=== PATIENT | female | born 1950 | race Caucasian/White ===

== ENCOUNTER 2018-12-17 08:47 | Inpatient (IN) | payer MEDICARE, OTHER ==
--- NOTE | 2018-12-16 16:56 | Pre-op HX & Phy Repo 2 SIG ---
DATE OF ADMISSION: 12/17/2018 DATE OF PLANNED SURGERY: 12/18/2018 HISTORY OF PRESENT ILLNESS: The patient is a 68-year-old female in overall stable health with a liver transplant for many years, who has a malfunctioning Kock pouch continent ileostomy with one year of progressive difficulty with intubating her Kock pouch and increasing incontinence of stool and gas. The patient developed ulcerative colitis and 40 years ago in 1978 underwent proctocolectomy with creation of a Kock pouch continent ileostomy. 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 She used to intubate six to seven times a day and once per night, but now intubates every hour and a half and increasing at night to avoid leaking of stool and gas from the stoma. The patient is scheduled to undergo endoscopy in preparation for surgery with insertion of a PICC line, continuous drainage of her Kock pouch, intravenous hydration during bowel her prep and then surgery to revise and preserve her Kock pouch. The operative report from 2010 indicated the pouch was of small capacity. MEDICATIONS: Prograf 1 mg at 10 a.m. and 2 mg at 9 p.m., CellCept 750 mg a.m. and p.m., Synthroid 125 mcg daily, and trazodone 50 mg nightly as needed insomnia. ALLERGIES: Reglan, sulfa, and codeine causes side effects, Dilaudid causes itching, and morphine causes shortness of breath, hydrocodone, she tolerates. OPERATIONS: Liver transplantation in 1999 for primary sclerosing cholangitis, appendectomy age 15, cholecystectomy in 1985, and total abdominal hysterectomy and bilateral salpingo-oophorectomy in 1983. PHYSICAL EXAMINATION: GENERAL: The patient is 5 feet 1 inch, 133 pounds. She is arriving from out of town and will be examined upon arrival and dictated separately. IMPRESSION: 1. Malfunctioning Kock pouch continent ileostomy with increasing difficulty with intubation and increasing incontinence of stool and gas. 2. History of ulcerative colitis. 3. History of primary sclerosing cholangitis. 4. STATUS POST MULTIPLE ABDOMINAL OPERATIONS: 4.1. Proctocolectomy and Kock pouch continent ileostomy in 1978. 4.2. Total abdominal hysterectomy and bilateral salpingo-oophorectomy in 1983. 4.3. Appendectomy age 15. 4.4. Cholecystectomy in 1985. 4.5. Liver transplantation in 1999. 4.6. Laparotomy with revision of Kock pouch and repair of pouch cutaneous fistula in 2010. PLAN: I have had a full discussion with the patient regarding the nature of her condition, the nature of the pouch endoscopy, not requiring anesthesia or sedation and the nature of surgery, including the options of revising her existing valve, which is likely slipped, creation of a new valve and stoma preserving her pouch, resection of this pouch and creation of new continent ileostomy or resection of the pouch and creation of a conventional Yajaira ileostomy, which she has never had. I will have another discussion in person when she arrives from out of town including all the risks. Lars Sotomayor M.D. DR: RYAN JOB#: [id number] CC: BRENDEN
[~2018-12-17] VITALS: Ht 162.6 cm; Wt 61.2 kg
--- NOTE | 2018-12-17 10:00 | NUR ---
NURSE NOTES: ADMITTED A 68 YR OLD FEMALE WITH DX OF MALFUNCTIONING PARSONS POUCH. AWAKE/ALERT. ADM CARE SEE ADMISSION ASSESSMENT.
[2018-12-17 10:52] LABS: BASOPHILS % (AUTO) 1.1 % (0.0-2.0); EOSINOPHILS % (AUTO) 2.3 % (0.0-3.0); HEMATOCRIT 43.6 % (37.0-47.0); HEMOGLOBIN 14.5 G/DL (12.0-16.0); LYMPHOCYTES % (AUTO) 21.5 % (20.0-45.0); MEAN CORPUSCULAR VOLUME 92 FL (80-99); MONOCYTES % (AUTO) 7.1 % (1.0-10.0); PLATELET COUNT 314 K/UL (150-450); RED BLOOD COUNT 4.72 M/UL (4.20-5.40); RED CELL DISTRIBUTION WIDTH 12.3 % (11.6-14.8); WHITE BLOOD COUNT 7.1 K/UL (4.8-10.8)
[2018-12-17] MEDS ORDERED: SYNTHROID125 MCG ORAL (10:53)
[2018-12-17] MEDS ORDERED: PROGRAF1 MG ORAL (10:53)
[2018-12-17] MEDS ORDERED: TRAZODONE HCL50 MG ORAL (10:53)
[2018-12-17] MEDS ORDERED: CELLCEPT250 MG ORAL (10:53)
[2018-12-17 10:56] LABS: ANION GAP 12 mmol/L (5-15); BLOOD UREA NITROGEN 27 mg/dL (7-18); CALCIUM 9.8 MG/DL (8.5-10.1); CARBON DIOXIDE 20 MMOL/L (21-32); CHLORIDE 105 MMOL/L (98-107); CREATININE 1.2 MG/DL (0.55-1.30); POTASSIUM 4.4 MMOL/L (3.5-5.1); SODIUM 136 MMOL/L (136-145)
--- NOTE | 2018-12-17 10:56 | Anethesia Preoperative Eval ---
Anesthesia Pre-op PMH/ROS General Date of Evaluation: Dec 17, 2018 Time of Evaluation: 10:17 Anesthesiologist: Andres ASA Score: ASA 2 Mallampati Score Class I : Soft palate, uvula, fauces, pillars visible Class II: Soft palate, uvula, fauces visible Class III: Soft palate, base of uvula visible Class IV: Only hard plate visible Mallampati Classification: Class II Surgeon: Светлана Diagnosis: Malfunctioning Dhillon Poch Surgical Procedure: Laparotomy Revision Dhillon Poch Anesthesia History: none Family History: no anesthesia problems Allergies: Coded Allergies: CODEINE (Verified Allergy, Severe, 12/17/18) Face contractions HYDROMORPHONE (Verified Allergy, Severe, Itching, 12/17/18) Itching whole body METOCLOPRAMIDE (Verified Allergy, Severe, 12/17/18) Face contractions MORPHINE (Verified Allergy, Severe, Shortness of Breath, 12/17/18) SULFA (SULFONAMIDE ANTIBIOTICS) (Verified Allergy, Severe, 12/17/18) Face contractions Medications: see eMAR Patient NPO?: Yes Past Medical History Gastrointestinal/Genitourinary: Reports: other - Colitis HEENT: Reports: cataract (L), cataract (R) Hematology/Immune: Reports: other - Skin Cancer PSxH Narrative: USMAN Anesthesia Pre-op Phys. Exam Physician Exam Last Vital Signs Date Time Temp Pulse Resp B/P (MAP) Pulse Ox O2 Delivery O2 Flow Rate FiO2 12/17/18 10:00 Room Air Constitutional: NAD Neurologic: CN 2-12 intact Cardiovascular: RRR Respiratory: CTA Gastrointestinal: S/NT/ND Airway Exam Mallampati Score: Class II MO: full ROM: full Teeth: intact Anesthesia Pre-op A/P Labs Hematology Test 12/17/18 10:40 White Blood Count Pending Red Blood Count Pending Hemoglobin Pending Hematocrit Pending Mean Corpuscular Volume Pending Mean Corpuscular Hemoglobin Pending Mean Corpuscular Hemoglobin Concent Pending Red Cell Distribution Width Pending Platelet Count Pending Mean Platelet Volume Pending Neutrophils (%) (Auto) Pending Lymphocytes (%) (Auto) Pending Monocytes (%) (Auto) Pending Eosinophils (%) (Auto) Pending Basophils (%) (Auto) Pending Coagulation Test 12/17/18 10:40 Prothrombin Time Pending Prothromb Time International Ratio Pending Activated Partial Thromboplast Time Pending Chemistry Test 12/17/18 10:40 Sodium Level Pending Potassium Level Pending Chloride Level Pending Carbon Dioxide Level Pending Blood Urea Nitrogen Pending Creatinine Pending Estimat Glomerular Filtration Rate Pending Glucose Level Pending Calcium Level Pending Total Bilirubin Pending Aspartate Amino Transf (AST/SGOT) Pending Alanine Aminotransferase (ALT/SGPT) Pending Alkaline Phosphatase Pending Total Protein Pending Albumin Pending Globulin Pending Risk Assessment & Plan Assessment: ASA 2 Plan: GA Status Change Before Surgery: No Pre-Antibiotics Drug: Lalo Jewell MD Dec 17, 2018 10:55
[2018-12-17 10:58] LABS: INR 0.9 (0.9-1.1)
[2018-12-17 11:00] VITALS: BP 124/72
[2018-12-17 11:01] LABS: ALANINE AMINOTRANSFERASE 38 U/L (12-78); ALBUMIN 3.3 G/DL (3.4-5.0); ALBUMIN/GLOBULIN RATIO 0.8 (1.0-2.7); ALKALINE PHOSPHATASE 175 U/L (46-116); ASPARTATE AMINO TRANSFERASE 30 U/L (15-37); BILIRUBIN,TOTAL 0.4 MG/DL (0.2-1.0)
[2018-12-17] MEDS ORDERED: Lidocaine 1% Plain 30 ml INJ SCH (11:30)
[2018-12-17] MEDS ORDERED: Heparin1,000 units/500ml Premix(Conc:2 units/ml) IV SCH (11:30)
[2018-12-17 11:46] LABS: APPEARANCE,URINE CLEAR; BILIRUBIN, URINE NEGATIVE (NEGATIVE); COLOR,URINE PALE YELLOW; GLUCOSE, URINE (UA) NEGATIVE (NEGATIVE); KETONES,URINE NEGATIVE (NEGATIVE); LEUKOCYTE ESTERASE ,URINE 2+ (NEGATIVE); NITRITE,URINE NEGATIVE (NEGATIVE); PH,URINE 5 (4.5-8.0); PROTEIN,URINE 2+ (NEGATIVE); UROBILINOGEN,URINE NORMAL MG/DL (0.0-1.0)
--- NOTE | 2018-12-17 12:15 | Diagnostic Imaging Report ---
Indication: Dyspnea Comparison: None A single view chest radiograph was obtained. Findings: No definite infiltrate or pulmonary vascular congestion identified. The heart is enlarged. The aorta is mildly enlarged consistent with atherosclerotic vascular disease. Extensive surgical clips seen in the upper abdomen. The bones are osteopenic. Impression: No acute disease
--- NOTE | 2018-12-17 12:50 | NUR ---
NURSE NOTES: TO GI LAB VIA [facility] FOR PARSONS POUCH ENDOSCOPY.
--- NOTE | 2018-12-17 12:59 | Pre-Procedure Note/Attestation ---
Pre-Procedure Note/Attestation Complete Prior to Procedure Planned Procedure: not applicable Procedure Narrative: Kock pouch endoscopy Indications for Procedure Pre-Operative Diagnosis: malfunctioning Kock Pouch continent ileostomy Attestation I attest that I discussed the nature of the procedure; its benefits; risks and complications; and alternatives (and the risks and benefits of such alternatives ), prior to the procedure, with the patient (or the patient's legal field representative/health education). I attest that, if there was a reasonable possibility of needing a blood transfusion, the patient (or the patient's legal field representative/health education) was given the [facility] standardized written summary, pursuant to the Jesus Opal Blood Safety Act ([place] Health and Safety Code # 1645, as amended). I attest that I re-evaluated the patient just prior to the surgery and that there has been no change in the patient's H&P, except as documented below:none Lars Sotomayor MD Dec 17, 2018 12:59
--- NOTE | 2018-12-17 13:28 | Brief Operative Note ---
Immediate Post Operative Note Operative Note Pre-op Diagnosis: malfunctioning Kock Pouch continent ileostomy Procedure: Kock pouch endoscopy Post-op Diagnosis: same with partially slipped nipple valve Post-op Diagnosis: same as pre-op Findings: consistent w/pre-op dx studies Surgeon: lorena Anesthesia: other - none Specimen: none Complications: none Condition: stable Fluids: none Estimated Blood Loss: none Drains: other - 28 Pickett to Kock Pouch Implant(s) used?: No Lars Sotomayor MD Dec 17, 2018 13:28
--- NOTE | 2018-12-17 14:00 | NUR ---
NURSE NOTES: REC'D FROM GI LAB SP PARSONS POUCH ENDOSCOPY. AWAKE /ALERT. V/S TAKEN. NO CO PAIN. IEOSTOMY CATHETER CONNECTED TO DRAINAGE BAG DRAINING BROWNISH OUTPUT. FLUSH WITH 20CC NS ORDERED DRAINING WELL. CAME BACK WITH PICCLINE MARILY. SITE PATENT. DRESSING INTACT.
--- NOTE | 2018-12-17 14:11 | NUR ---
LUE 2L PICC LINE PLACED BY DR. JONES AT 1345 HRS. FA
[2018-12-17 14:25] VITALS: BP 139/75
[2018-12-17] MEDS: D5 1/2NS w/KCl 20mEq 1,000 ML IV SCH (14:26)
--- NOTE | 2018-12-17 15:11 | Diagnostic Imaging Report ---
Indication: lobsterman venous access Findings: After the indications, procedure, risks, complications, and alternatives of the procedure were explained, written informed consent was obtained. The left upper extremity was prepped with alcohol. All elements of maximal sterile barrier technique were followed including usage of a cap, mask, sterile gown, sterile gloves, hand hygiene and a large sterile sheet. Sonographic evaluation of the upper extremity was performed demonstrating a patent and compressible basilic vein. Access was obtained under real-time ultrasound guidance (with utilization of sterile gel and sterile probe cover) and digital image was saved and archived. An .018 wire was introduced. Needle exchanged for a 5 Setswana peel-away sheath. Measurements were obtained. A 5 Setswana dual-lumen Power PICC line catheter was cut to 43 cm and introduced over the wire. Peel-away sheath and wire were removed.Catheter was secured to the skin using 2-0 Prolene suture. Both ports aspirate and flush easily. A single fluoroscopic image shows the distal tip in the superior vena cava. Total fluoroscopic time was 15 seconds. Impression: Successful placement of an upper extremity PICC line catheter
--- NOTE | 2018-12-17 15:47 | General Progress Note ---
Progress Note Progress Note H&P dictated. Kock pouch endoscopy reveals a partially slipped or resorbed nipple valve accounting for her incontinence and some difficulty intubating Full discussion re surgery indications, alternatives, options and risk. Will give her am Prograf and Cellcept at 0700 pre-op Lars Sotomayor MD Dec 17, 2018 15:47
[2018-12-17 16:00] VITALS: BP 107/68
--- NOTE | 2018-12-17 17:08 | GI Initial Consult Note ---
History of Present Illness General Date patient seen: Dec 17, 2018 Time patient seen: 16:59 Referring physician: ZAYDA Reason for Consultation: HISTORY OF LIVER TRANSPLANT Present Illness HPI The patient is a 68-year-old female in overall stable health with a liver transplant for many years, who has a malfunctioning Kock pouch continent ileostomy with one year of progressive difficulty with intubating her Kock pouch and increasing incontinence of stool or gas. The patient developed ulcerative colitis and 40 years ago in 1978 underwent proctocolectomy with creation of a Kock pouch continent ileostomy. 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 She used to intubate six to seven times a day and once per night, but now intubates every hour and a half and increasing at night to avoid leaking of stool and gas from the stoma. GI consulted to manage tacrolimus levels given patient's history of liver transplant back in 1999. Patient seen, awake alert and oriented x4 no apparent distress. Abdomen is soft, nondistended, nontender. Ileostomy stoma noted with no erythema or drainage around the site. At this time the patient denies any generalized pain. Patient scheduled for Kock pouch revision surgery. Home Meds Reported Medications Trazodone Hcl* (DESYREL*) 50 Mg Tablet, 50 MG ORAL BEDTIME PRN for Insomnia, TAB 12/17/18 Levothyroxine Sodium* (SYNTHROID*) 125 Mcg Tablet, 125 MCG ORAL DAILY, TAB Take in the morning on an empty stomach, at least 30 minutes before food. 12/17/18 Mycophenolate Mofetil (Cellcept) 250 Mg Capsule, 750 MG ORAL BID, CAP 12/17/18 Tacrolimus (Prograf) 1 Mg Capsule, 2 MG ORAL DAILY, CAP 0 Refills 12/17/18 Tacrolimus (Prograf) 1 Mg Capsule, 1 MG ORAL DAILY, CAP 0 Refills 12/17/18 Med list reviewed/reconciled: Yes Allergies: Coded Allergies: CODEINE (Verified Allergy, Severe, 12/17/18) Face contractions HYDROMORPHONE (Verified Allergy, Severe, Itching, 12/17/18) Itching whole body METOCLOPRAMIDE (Verified Allergy, Severe, 12/17/18) Face contractions MORPHINE (Verified Allergy, Severe, Shortness of Breath, 12/17/18) SULFA (SULFONAMIDE ANTIBIOTICS) (Verified Allergy, Severe, 12/17/18) Face contractions Patient History History Provided By: Patient, Medical Record [facility] Narrative OPERATIONS: Liver transplantation in 1999 for primary sclerosing cholangitis, appendectomy age 15, cholecystectomy in 1985, and total abdominal hysterectomy and bilateral salpingo-oophorectomy in 1983. I Social History: Denies: smoking, alcohol use, drug use, other Review of Systems All Other Systems: negative except mentioned in HPI Physical Exam Vital Signs Date Time Temp Pulse Resp B/P (MAP) Pulse Ox O2 Delivery O2 Flow Rate FiO2 12/17/18 10:00 Room Air 12/17/18 11:00 97.1 69 18 124/72 (89) 97 Sp02 EP Interpretation: reviewed, normal Labs Laboratory Tests Test 12/17/18 10:40 12/17/18 10:45 12/17/18 11:54 White Blood Count 7.1 K/UL (4.8-10.8) Red Blood Count 4.72 M/UL (4.20-5.40) Hemoglobin 14.5 G/DL (12.0-16.0) Hematocrit 43.6 % (37.0-47.0) Mean Corpuscular Volume 92 FL (80-99) Mean Corpuscular Hemoglobin 30.7 PG (27.0-31.0) Mean Corpuscular Hemoglobin Concent 33.2 G/DL (32.0-36.0) Red Cell Distribution Width 12.3 % (11.6-14.8) Platelet Count 314 K/UL (150-450) Mean Platelet Volume 5.6 FL (6.5-10.1) L Neutrophils (%) (Auto) 68.0 % (45.0-75.0) Lymphocytes (%) (Auto) 21.5 % (20.0-45.0) Monocytes (%) (Auto) 7.1 % (1.0-10.0) Eosinophils (%) (Auto) 2.3 % (0.0-3.0) Basophils (%) (Auto) 1.1 % (0.0-2.0) Prothrombin Time 9.7 SEC (9.30-11.50) Prothromb Time International Ratio 0.9 (0.9-1.1) Activated Partial Thromboplast Time 25 SEC (23-33) Miscellaneous Test 2 Pending Pending Sodium Level 136 MMOL/L (136-145) Potassium Level 4.4 MMOL/L (3.5-5.1) Chloride Level 105 MMOL/L (98-107) Carbon Dioxide Level 20 MMOL/L (21-32) L Anion Gap 12 mmol/L (5-15) Blood Urea Nitrogen 27 mg/dL (7-18) H Creatinine 1.2 MG/DL (0.55-1.30) Estimat Glomerular Filtration Rate 44.8 mL/min (>60) Glucose Level 98 MG/DL (74-106) Calcium Level 9.8 MG/DL (8.5-10.1) Total Bilirubin 0.4 MG/DL (0.2-1.0) Aspartate Amino Transf (AST/SGOT) 30 U/L (15-37) Alanine Aminotransferase (ALT/SGPT) 38 U/L (12-78) Alkaline Phosphatase 175 U/L (46-116) H Total Protein 7.7 G/DL (6.4-8.2) Albumin 3.3 G/DL (3.4-5.0) L Globulin 4.4 g/dL Albumin/Globulin Ratio 0.8 (1.0-2.7) L Urine Color Pale yellow Urine Appearance Clear Urine pH 5 (4.5-8.0) Urine Specific [place] 1.020 (1.005-1.035) Urine Protein 2+ (NEGATIVE) H Urine Glucose (UA) Negative (NEGATIVE) Urine Ketones Negative (NEGATIVE) Urine Blood Negative (NEGATIVE) Urine Nitrite Negative (NEGATIVE) Urine Bilirubin Negative (NEGATIVE) Urine Urobilinogen Normal MG/DL (0.0-1.0) Urine Leukocyte Esterase 2+ (NEGATIVE) H Urine RBC 0-2 /HPF (0 - 2) Urine WBC 2-4 /HPF (0 - 2) Urine Squamous Epithelial Cells Few /LPF (NONE/OCC) Urine Bacteria Few /HPF (NONE) General Appearance: well appearing, no apparent distress, alert Head: normocephalic EENT: PERRL/EOMI, normal ENT inspection Neck: supple Respiratory: normal breath sounds, no respiratory distress Cardiovascular: normal rate Gastrointestinal: normal inspection, non tender, soft, normal bowel sounds, non -distended, other - Ileostomy Rectal: deferred Genitourinary: no CVA tenderness Musculoskeletal: normal inspection, back normal Neurologic: normal inspection, alert, oriented x3, responsive Psychiatric: normal inspection, judgement/insight normal, memory normal Skin: normal inspection, normal color, no rash, warm/dry, palpation normal, well hydrated Lymphatic: normal inspection, no adenopathy Current Medications Current Medications Medications (Trade) Dose Ordered Sig/Kajal Route PRN Reason Start Time Stop Time Status Last Admin Dose Admin Acetaminophen (Tylenol) 650 mg Q6H PRN ORAL headache 12/17/18 14:45 01/16/19 14:44 12/17/18 14:47 Chlorhexidine Gluconate (Yulia-Hex 2%) 1 applic DAILY@2000 TOPIC 12/17/18 20:00 01/16/19 19:59 Dextrose/ Electrolytes 1,000 ml @ 100 mls/hr Q10H IV 12/17/18 12:58 01/16/19 12:57 12/17/18 14:26 Heparin Sodium (Porcine) (Heparin 5000 units/ml) 5,000 units ONCE SUBQ 12/18/18 05:30 12/18/18 07:00 Heparin Sodium/ Sodium Chloride (Heparin 1000 units/500ml Premix) 1,000 unit ONCE IV 12/17/18 11:30 12/17/18 23:59 Levothyroxine Sodium (Synthroid) 125 mcg DAILY@0630 ORAL 12/18/18 06:30 01/17/19 06:29 Lidocaine HCl (Xylocaine 1% 30ml) 30 ml ONCE INJ 12/17/18 11:30 12/17/18 23:59 Mycophenolate Mofetil (Cellcept) 750 mg ONCE ORAL 12/17/18 21:00 12/17/18 22:30 Mycophenolate Mofetil (Cellcept) 750 mg ONCE ORAL 12/18/18 07:00 12/18/18 08:30 Mycophenolate Mofetil (Cellcept) 750 mg Q12HR ORAL 12/18/18 21:00 01/17/19 20:59 Ondansetron HCl (Zofran) 4 mg Q4H PRN IVP Nausea & Vomiting 12/17/18 11:00 01/16/19 10:59 Piperacillin Sod/ Tazobactam Sod 3.375 gm/Sodium Chloride 110 ml @ 220 mls/hr Q6HR IVPB 8/29/19 06:00 12/25/18 05:59 Tacrolimus (Prograf) 1 mg DAILY ORAL 12/19/18 09:00 01/18/19 08:59 Tacrolimus (Prograf) 1 mg ONCE ORAL 12/18/18 07:00 12/18/18 08:00 Tacrolimus (Prograf) 2 mg BEDTIME ORAL 12/17/18 21:00 01/16/19 20:59 Trazodone HCl (Desyrel) 25 mg QHS PRN ORAL INSOMNIA 12/17/18 12:22 01/16/19 12:21 GI: Plan Problems: (1) History of liver transplant (2) Malfunctioning Kock Pouch Plan IMPRESSION: 1. Malfunctioning Kock pouch continent ileostomy with increasing difficulty with intubation and increasing incontinence of stool and gas. 2. History of ulcerative colitis. 3. History of primary sclerosing cholangitis. 4. STATUS POST MULTIPLE ABDOMINAL OPERATIONS: 4.1. Proctocolectomy and Kock pouch continent ileostomy in 1978. 4.2. Total abdominal hysterectomy and bilateral salpingo-oophorectomy in 1983. 4.3. Appendectomy age 15. 4.4. Cholecystectomy in 1985. 4.5. Liver transplantation in 1999. 4.6. Laparotomy with revision of Kock pouch and repair of pouch cutaneous fistula in 2010. Given that the patient has a history of liver transplant, we recommend the patient be placed on either Zosyn or Flagyl prior and after the procedure. Obtain tacrolimus level for tomorrow morning, will monitor during her admission. We will monitor monitor for any postoperative nausea or vomiting Trend LFTs We will follow along with surgery and consider endoscopy if necessary Discussed with Dr. Dozier. Thank you for this patient referral, we will follow. The patient was seen and examined at bedside and all new and available data was reviewed in the patients chart. I agree with the above findings, impression and plan. (Patient seen earlier today. Signature stamp does not reflect patient encounter time.). - MD Cheryl WoodsEn[facility] JULIEN Dec 17, 2018 17:08
--- NOTE | 2018-12-17 17:45 | Procedure Note ---
DATE OF PROCEDURE: 12/17/2018 SURGEON: Lars Sotomayor M.D. PRE-ENDOSCOPY DIAGNOSES: 1. Malfunctioning Kock pouch continent ileostomy. 2. History of ulcerative colitis. 3. History of primary sclerosing cholangitis. 4. Status post multiple abdominal operations including proctocolectomy with Kock pouch in 1978 with revision in 2010 and status post liver transplantation in 1999. POST-ENDOSCOPY DIAGNOSES: 1. Malfunctioning Kock pouch continent ileostomy. 2. History of ulcerative colitis. 3. History of primary sclerosing cholangitis. 4. Status post multiple abdominal operations including proctocolectomy with Kock pouch in 1978 with revision in 2010 and status post liver transplantation in 1999. ENDOSCOPY PERFORMED: Kock pouch continent ileostomy pouch endoscopy. DESCRIPTION OF PROCEDURE: The patient was positioned supine in the GI lab without any sedation or anesthesia given or required. Using a GIF-P140 endoscope, the stoma low in the right lower quadrant was entered. There was a fairly straight tract into the pouch. The distance to the tip of the nipple valve was 8 to 9 cm slightly redundant for this patient's body size. The pouch was moderately distensible and of moderate capacity. There was no inflammation or sign of pouchitis. Retroflexed views revealed that 1 axis of the nipple valve was receded and measured only 1 to 1.5 cm or as 180 degrees away, it measured 4 to 5 cm. This is clearly the cause of her incontinence and difficulty with intubation with a partially slipped valve of a chronic nature. Following removal of the endoscope, I was readily able to insert a 28-Polish Pickett catheter into the pouch and connected to gravity drainage bag, secured it to the skin with tape, and placed a dry dressing over the stoma. The patient will be prepared for surgical revision of her Kock pouch. She tolerated the endoscopy well. Lars Sotomayor M.D. DR: MARCELA JOB#: [id number] CC:
[2018-12-17] MEDS ORDERED: D5 1/2NS w/KCl 20mEq 1,000 ML IV SCH (18:00)
--- NOTE | 2018-12-17 18:57 | NUR ---
NURSE NOTES: NO SIGNIFICANT CHANGES. CONDITION STABLE.
--- NOTE | 2018-12-17 19:30 | NUR ---
NURSE NOTES: Pt lying in bed w/bed in lowest position and call light within reach. Pt A&Ox4, VSS, and in no apparent distress at this time. MARILY PICC line intact w/bloody biopatch noted but w/o active bleeding; IVF running and ileo to drainage bag. Pt aware she is to be NPO at midnight except PO meds w/sips of water in preparation for surgery in the AM; pt verbalized understanding. Will continue to monitor.
--- NOTE | 2018-12-17 19:30 | NUR ---
HAND-OFF: Report given to Kendall CALIX RN.
[2018-12-17 20:00] VITALS: BP 149/81
[2018-12-17] MEDS: Dyna-Hex 2% Top Sol 2oz TOPIC SCH (20:46)
[2018-12-17] MEDS ORDERED: TraZODone 50mg tab ORAL PRN (21:00)
[2018-12-17] MEDS ORDERED: Mycophenolate 250mg cap ORAL SCH ×2 (21:00)
[2018-12-17] MEDS: TraZODone HCl 25 mg tablet ORAL PRN (22:19)
--- NOTE | 2018-12-17 22:30 | NUR ---
NURSE NOTES: Changed pt's PICC line dressing d/t her c/o it being uncomfortable and it bleeding; minimal bleeding noted when dressing removed but stopped before replacing dressing. Pt verbalized feeling better after changing PICC line dressing. Will continue to monitor.
[2018-12-18] VITALS (15 sets, daily range): BP systolic 135–162; BP diastolic 70–89
[2018-12-18] MEDS: D5 1/2NS w/KCl 20mEq 1,000 ML IV SCH ×2 (00:19→08:58)
--- NOTE | 2018-12-18 03:45 | Pre-op HX & Phy Repo 2 SIG ---
DATE OF ADMISSION: 12/17/2018 The patient has now arrived from out of town. Please see previously dictated history. PHYSICAL EXAMINATION: GENERAL: She is well developed and well nourished, 5 feet 1 inch, 133 pounds. HEENT: Within normal limits. LUNGS: Clear. HEART: Regular rhythm. BREASTS: Without masses. ABDOMEN: Soft. There is a long midline scar from epigastrium to pubis with a mild weakness or incisional hernia in the infraumbilical area. There is a chevron incision. The stoma of her Kock pouch is low in the right lower quadrant. PELVIC: Status post hysterectomy. RECTAL: Status post proctectomy. EXTREMITIES: Without edema. Pulses 2+ femoral to dorsalis pedis bilaterally. There is no edema or varicosities. NEUROLOGIC: Physiologic. IMPRESSION: 1. Malfunctioning Kock pouch continent ileostomy with worsening incontinence and occasional difficulty with intubation. 2. History of ulcerative colitis. 3. History of primary sclerosing cholangitis. 4. STATUS POST MULTIPLE ABDOMINAL OPERATIONS: 4.1. Appendectomy at age 15, in 1964. 4.2. Proctocolectomy and Kock pouch continent ileostomy in 1978. 4.3. Total abdominal hysterectomy and bilateral salpingo-oophorectomy in 1983. 4.4. Cholecystectomy in 1985. 4.5. Liver transplantation in 1999. 4.6. Revision of Kock pouch with repair of fistula and revision of valve 2010 PLAN: The patient has undergone pouch endoscopy revealing a deficiency of the nipple valve and a modest capacity pouch, which was described as small capacity at the time of her revision in 2010. I have discussed the surgical options including restoring and stabilizing the existing valve, which is unlikely, creating a new valve and stoma with preservation of the existing Kock pouch which would be ideal if technically feasible, the third option will be to resect this Kock pouch and create a new continent ileostomy the Briggs version of the Kock pouch, and the final option will be to excise this pouch and create a conventional Yajaira ileostomy which will require that she wear an external appliance rather than intubating an internal continent pouch. I have discussed indications, alternatives, options, and risks including bleeding, infection, injury to adjacent structures or organs, postoperative difficulties with pouch including possible slipped valve or fistula of pouch or valve, possible need for gastrostomy or nasogastric tube, deep vein thrombosis despite prophylaxis, issues with the liver transplant, etc. All questions have been answered. She understands and agrees to proceed. Lars Sotomayor M.D. DR: RYAN JOB#: [id number] CC: BRENDEN
[2018-12-18] MEDS ORDERED: Heparin 5000 units/ml inj SUBQ SCH (05:30)
[2018-12-18] MEDS: Piperacillin/Tazobactam 3.375 GM in NS 110 ML IVPB SCH ×4 (05:39→23:25)
[2018-12-18 05:54] LABS: BASOPHILS % (AUTO) 0.9 % (0.0-2.0); EOSINOPHILS % (AUTO) 4.9 % (0.0-3.0); HEMATOCRIT 37.7 % (37.0-47.0); HEMOGLOBIN 12.7 G/DL (12.0-16.0); LYMPHOCYTES % (AUTO) 25.3 % (20.0-45.0); MEAN CORPUSCULAR VOLUME 93 FL (80-99); MONOCYTES % (AUTO) 9.4 % (1.0-10.0); NEUTROPHILS % (AUTO) 59.4 % (45.0-75.0); PLATELET COUNT 229 K/UL (150-450); RED BLOOD COUNT 4.06 M/UL (4.20-5.40); RED CELL DISTRIBUTION WIDTH 12.3 % (11.6-14.8); WHITE BLOOD COUNT 4.7 K/UL (4.8-10.8)
[2018-12-18 06:46] LABS: ALANINE AMINOTRANSFERASE 30 U/L (12-78); ALBUMIN 2.6 G/DL (3.4-5.0); ALBUMIN/GLOBULIN RATIO 0.7 (1.0-2.7); ALKALINE PHOSPHATASE 131 U/L (46-116); ANION GAP 10 mmol/L (5-15); ASPARTATE AMINO TRANSFERASE 19 U/L (15-37); BILIRUBIN,TOTAL 0.3 MG/DL (0.2-1.0); BLOOD UREA NITROGEN 13 mg/dL (7-18); CALCIUM 9.1 MG/DL (8.5-10.1); CARBON DIOXIDE 19 MMOL/L (21-32); CHLORIDE 113 MMOL/L (98-107); POTASSIUM 3.8 MMOL/L (3.5-5.1); SODIUM 142 MMOL/L (136-145)
[2018-12-18] MEDS: Levothyroxine 125mcg tab ORAL SCH (06:52)
[2018-12-18] MEDS ORDERED: Mycophenolate 250mg cap ORAL SCH (07:00)
[2018-12-18] MEDS ORDERED: NeoSporin Gu Irrig 1ml Amp IRRIG ONE ×3 (07:00→10:31)
[2018-12-18] MEDS ORDERED: Sterile Water Irrig 1000ml IRRIG ONE (07:00)
[2018-12-18] MEDS ORDERED: LR 1000ml ONE (07:00)
[2018-12-18] MEDS ORDERED: Bacitracin 50000 Units Vial ONE ×3 (07:00→10:31)
[2018-12-18] MEDS ORDERED: fentaNYL 100 mcg/2 mL IV ONE ×2 (07:15→08:25)
--- NOTE | 2018-12-18 07:15 | NUR ---
NURSE NOTES: Report received from Lynsey NGUYEN. Patient already sent down to OR at 0700.
[2018-12-18] MEDS ORDERED: Midazolam 2mg/2ml Inj ONE (07:16)
[2018-12-18] MEDS ORDERED: Lidocaine 1% MPF 10mg/ml 5ml ONE (07:16)
[2018-12-18] MEDS ORDERED: Propofol 200mg/20ml IV ONE ×2 (07:16→11:15)
--- NOTE | 2018-12-18 07:22 | Pre-Procedure Note/Attestation ---
Pre-Procedure Note/Attestation Complete Prior to Procedure Planned Procedure: not applicable Procedure Narrative: revision of Kock Pouch continent ileostomy Indications for Procedure Pre-Operative Diagnosis: malfunctioning Kock Pouch continent ileostomy Attestation I attest that I discussed the nature of the procedure; its benefits; risks and complications; and alternatives (and the risks and benefits of such alternatives ), prior to the procedure, with the patient (or the patient's legal phone representative). I attest that, if there was a reasonable possibility of needing a blood transfusion, the patient (or the patient's legal phone representative) was given the [facility] standardized written summary, pursuant to the Jesus Lydia Blood Safety Act ([place] Health and Safety Code # 1645, as amended). I attest that I re-evaluated the patient just prior to the surgery and that there has been no change in the patient's H&P, except as documented below:none Lars Sotomayor MD Dec 18, 2018 07:22
[2018-12-18] MEDS ORDERED: Succinylcholine 20mg/ml 10ml vial ONE (07:27)
[2018-12-18] MEDS ORDERED: Rocuronium Bromide 50mg/5ml Inj IV ONE (07:27)
--- NOTE | 2018-12-18 07:40 | NUR ---
NURSE NOTES: Went down to Recovery to drop off Zosyn antibiotic as requested at this time.
--- NOTE | 2018-12-18 07:41 | NUR ---
HAND-OFF: Report given to PATRICK Johns.
--- NOTE | 2018-12-18 07:54 | NUR ---
CASE MANAGEMENT: INITIAL REVIEW 68 YO F PRESENTED TO HOSPITAL FOR SURGERY PMHx: LIVER TRANSPLANT. APPENDECTOMY. CHOLECYSTECTOMY. HYSTERECTOMY. SI:MALFUNCTIONING KOCK POUCH T 97.1 HR 69 RR 18 B/P 124/72 SATS 97% ON RA CO2 20 BUN 27 ALP 175 IS: OR MEDS PATIENT ADMITTED TO MED/SURG 12/18/2018 @ 0951 DCP: PATIENT TO BE DISCHARGED TO HOME ONCE MEDICALLY CLEARED. PLAN OF CARE: Procedure Narrative: revision of Kock Pouch continent ileostomy Pre-Operative Diagnosis: malfunctioning Kock Pouch continent ileostomy Addendum: 12/18/18 at 0915 by Shannen Mora CM INTERQUAL MET
[2018-12-18] MEDS ORDERED: NS Irrig 1000ml IRRIG ONE ×3 (07:58→09:05)
[2018-12-18] MEDS ORDERED: NS Irrig 4000ml IRRIG ONE ×2 (07:58→08:48)
[2018-12-18] MEDS ORDERED: Acetaminophen (Non formulary) 100 ML IV ONE (09:00)
--- NOTE | 2018-12-18 09:03 | NUR ---
*-* NO INSURANCE INFORMATION IN THE BAR UNABLE TO SEND CLINICALS OR REVIEWS *-*
[2018-12-18] MEDS ORDERED: Morphine Sulfate 10mg/ml Inj ONE (09:52)
[2018-12-18] MEDS ORDERED: Sodium Chloride 10ml vial INJ ONE (09:54)
[2018-12-18] MEDS ORDERED: Glycopyrrolate 0.2mg/ml 1ml Vial ONE (09:54)
[2018-12-18] MEDS ORDERED: Neostigmine 1mg/ml 10ml Inj ONE (09:54)
[2018-12-18] MEDS ORDERED: Ketorolac 30mg Inj IV PRN (10:30)
[2018-12-18] MEDS ORDERED: DiphenhydrAMINE 50mg/ml Inj IVP PRN ×2 (10:30→11:45)
[2018-12-18] MEDS ORDERED: Hydromorphone 0.5mg/0.5ml inj IVP PRN (10:30)
--- NOTE | 2018-12-18 11:37 | Brief Operative Note ---
Immediate Post Operative Note Operative Note Pre-op Diagnosis: malfunctioning Kock Pouch continent ileostomy Procedure: resection of failed Kock pouch and creation of Yajaira ileostomy Post-op Diagnosis: same Post-op Diagnosis: same as pre-op plus - small, contracted Kock pouch; proximal stricture Findings: consistent w/pre-op dx studies Surgeon: lorena Site Safety Manager: chucho Anesthesiologist: josi Anesthesia: general Specimen: yes - kock pouch, bowel trimmings Complications: none Condition: stable Fluids: see anesthesia record Estimated Blood Loss: volume - 100cc Drains: none Implant(s) used?: No Lars Sotomayor MD Dec 18, 2018 11:37
--- NOTE | 2018-12-18 11:42 | Immediate Post-Op Evaluation ---
Immediate Post-Op Evalulation Immediate Post-Op Evalulation Procedure: Exploratory laparotomy, lysis of adhesions, resection of continent pouch Date of Evaluation: Dec 18, 2018 Time of Evaluation: 11:41 IV Fluids: 1000 Blood Products: ALBUMIN 250 Estimated Blood Loss: 100 Urinary Output: 150 Blood Pressure Systolic: 136 Blood Pressure Diastolic: 72 Pulse Rate: 68 Respiratory Rate: 20 O2 Sat by Pulse Oximetry: 99 Temperature (Fahrenheit): 98.2 Pain Score (1-10): 2 Nausea: No Vomiting: No Complications none Patient Status: reacts, patent, extubated, none Hydration Status: adequate Ulises Sevilla MD Dec 18, 2018 11:42
[2018-12-18] MEDS ORDERED: PCA HYDROmorphone 1mg/ml 30 ML IV PRN (11:44)
[2018-12-18] MEDS ORDERED: Naloxone 0.4mg/ml Inj IVP PRN (11:45)
[2018-12-18] MEDS ORDERED: LORazepam 1mg tab SL PRN (11:45)
[2018-12-18] MEDS ORDERED: Rate Change PCA 1 Each MISC PRN (11:45)
[2018-12-18] MEDS ORDERED: PCA Education Pamphlet MISC ONE (11:45)
[2018-12-18] MEDS ORDERED: Hydromorphone 0.5mg/0.5ml inj ONE (11:49)
--- NOTE | 2018-12-18 12:27 | GI Progress Note ---
Assessment/Plan Problems: (1) Malfunctioning Kock Pouch (2) History of liver transplant ICD Codes: Z94.4 - Liver transplant status SNOMED: 273870576 Status: progressing, unchanged Status Narrative Discussed with Dr. Dozier. Assessment/Plan IMPRESSION: 1. Malfunctioning Kock pouch continent ileostomy with increasing difficulty with intubation and increasing incontinence of stool and gas. 2. History of ulcerative colitis. 3. History of primary sclerosing cholangitis. 4. STATUS POST MULTIPLE ABDOMINAL OPERATIONS: 4.1. Proctocolectomy and Kock pouch continent ileostomy in 1978. 4.2. Total abdominal hysterectomy and bilateral salpingo-oophorectomy in 1983. 4.3. Appendectomy age 15. 4.4. Cholecystectomy in 1985. 4.5. Liver transplantation in 1999. 4.6. Laparotomy with revision of Kock pouch and repair of pouch cutaneous fistula in 2010. Status post exploratory laparotomy with lysis of the adhesions and continent pouch repair Given that the patient has a history of liver transplant, we recommend the patient be placed on either Zosyn or Flagyl prior and after the procedure. Obtain tacrolimus level for tomorrow morning, will monitor during her admission. We will monitor monitor for any postoperative nausea or vomiting Trend LFTs We will follow along with surgery and consider endoscopy if necessary The patient was seen and examined at bedside and all new and available data was reviewed in the patients chart. I agree with the above findings, impression and plan. (Patient seen earlier today. Signature stamp does not reflect patient encounter time.). - Max Dozier MD Subjective Gastrointestinal/Abdominal: Reports: abdominal pain Objective Last 24 Hour Vital Signs Date Time Temp Pulse Resp B/P (MAP) Pulse Ox O2 Delivery O2 Flow Rate FiO2 12/18/18 12:01 80 14 156/78 100 Simple Mask 6 12/18/18 11:51 78 13 161/82 100 Simple Mask 6 12/18/18 11:45 77 15 161/88 100 Simple Mask 6 12/18/18 11:42 68 20 99 12/18/18 11:40 78 24 145/85 100 Simple Mask 6 12/18/18 11:36 98.5 79 14 135/83 99 Simple Mask 6 12/18/18 04:00 97.3 66 18 152/83 (106) 98 12/18/18 00:00 98.1 68 18 142/84 (103) 98 12/17/18 21:00 Room Air 12/17/18 20:00 97.8 75 18 149/81 (103) 98 12/17/18 16:00 98.2 74 19 107/68 (81) 99 12/17/18 15:17 98.2 12/17/18 14:25 97.9 72 19 139/75 (96) 96 Intake and Output 12/17/18 12/18/18 19:00 07:00 Intake Total 1850 ml 1520 ml Output Total 1060 ml 2075 ml Balance 790 ml -555 ml Intake Oral 1400 ml 360 ml IV Total 450 ml 1160 ml Output Urine Total 700 ml 1180 ml Other 360 ml 895 ml # Voids 4 Laboratory Tests Test 12/18/18 05:25 White Blood Count 4.7 K/UL (4.8-10.8) L Red Blood Count 4.06 M/UL (4.20-5.40) L Hemoglobin 12.7 G/DL (12.0-16.0) Hematocrit 37.7 % (37.0-47.0) Mean Corpuscular Volume 93 FL (80-99) Mean Corpuscular Hemoglobin 31.2 PG (27.0-31.0) H Mean Corpuscular Hemoglobin Concent 33.6 G/DL (32.0-36.0) Red Cell Distribution Width 12.3 % (11.6-14.8) Platelet Count 229 K/UL (150-450) Mean Platelet Volume 5.6 FL (6.5-10.1) L Neutrophils (%) (Auto) 59.4 % (45.0-75.0) Lymphocytes (%) (Auto) 25.3 % (20.0-45.0) Monocytes (%) (Auto) 9.4 % (1.0-10.0) Eosinophils (%) (Auto) 4.9 % (0.0-3.0) H Basophils (%) (Auto) 0.9 % (0.0-2.0) Sodium Level 142 MMOL/L (136-145) Potassium Level 3.8 MMOL/L (3.5-5.1) Chloride Level 113 MMOL/L (98-107) H Carbon Dioxide Level 19 MMOL/L (21-32) L Anion Gap 10 mmol/L (5-15) Blood Urea Nitrogen 13 mg/dL (7-18) Creatinine 1.0 MG/DL (0.55-1.30) Estimat Glomerular Filtration Rate 55.3 mL/min (>60) Glucose Level 95 MG/DL (74-106) Calcium Level 9.1 MG/DL (8.5-10.1) Total Bilirubin 0.3 MG/DL (0.2-1.0) Aspartate Amino Transf (AST/SGOT) 19 U/L (15-37) Alanine Aminotransferase (ALT/SGPT) 30 U/L (12-78) Alkaline Phosphatase 131 U/L (46-116) H Total Protein 6.3 G/DL (6.4-8.2) L Albumin 2.6 G/DL (3.4-5.0) L Globulin 3.7 g/dL Albumin/Globulin Ratio 0.7 (1.0-2.7) L Tacrolimus (Prograf) Level Pending Height (Feet): 5 Height (Inches): 5.00 Weight (Pounds): 135 General Appearance: WD/WN, no apparent distress, alert Cardiovascular: normal rate Respiratory/Chest: normal breath sounds, no respiratory distress Abdominal Exam: normal bowel sounds, non tender, soft, other - ileostomy Extremities: normal range of motion, non-tender Jeyson Luna NP Dec 18, 2018 12:27
--- NOTE | 2018-12-18 12:30 | NUR ---
NURSE NOTES: Patient returned to 307 via bed on O2 3LNC. No SOB or distress noted. Pain 10/10 to surgical site. MARINE ENGINEERING TEACHER (Dilaudid) connected, 0.2 mg every 6 minutes with continuous 0.1 mg, 6 mg lockout), volume 27.3 at this time, instructed on MARINE ENGINEERING TEACHER use, verbalized understanding. IVF 0.9 NS at 100 ml infusing to Left PICC, will change to new IVF order when received from pharmacy. Left PICC dressing CDI, site asymptomatic. Bilateral SCDs on, skin warm, wiggles toes. Left upper abdomen ileostomy appliance in place, stoma pink/moist, scant amount of dark bloody output noted in appliance bag, surrounding skin intact. Right upper abdomen dressing CDI. Instructed on NPO except ice/meds, IS, CDB, ankle rotation and overhead trapeze use orders, will reinforce. Call light in reach, bed in lowest position, will continue to monitor.
[2018-12-18] MEDS: D5 1/4NS w/KCl 20mEq 1,000 ML IV SCH ×2 (13:45→23:25)
--- NOTE | 2018-12-18 16:30 | Operative Note - Dictated ---
DATE OF OPERATION: 12/18/2018 SURGEON: Lars Sotomayor M.D. DIGITAL OPERATIONS ANALYST SURGEON: Kvng Sanchez M.D. ANESTHESIOLOGIST: Ulises Sevilla M.D. TYPE OF ANESTHESIA: General endotracheal. PREOPERATIVE DIAGNOSES: 1. Malfunctioning Kock pouch continent ileostomy. 2. History of ulcerative colitis. 3. History of primary sclerosing cholangitis. 4. Status post multiple abdominal operations. 4.1. Appendectomy in 1964. 4.2. Proctocolectomy and Kock pouch in 1978. 4.3. Total abdominal hysterectomy and bilateral salpingo-oophorectomy 1983 4.4. Cholecystectomy in 1985. 4.5. Orthotopic liver transplantation in 1999. 4.6. Revision of Kock pouch and repair of fistula in 2010. POSTOPERATIVE DIAGNOSES: 1. Malfunctioning Kock pouch continent ileostomy. 2. History of ulcerative colitis. 3. History of primary sclerosing cholangitis. 4. Status post multiple abdominal operations. 4.1. Appendectomy in 1964. 4.2. Proctocolectomy and Kock pouch in 1978. 4.3. Total abdominal hysterectomy and bilateral salpingo-oophorectomy 1983 4.4. Cholecystectomy in 1985. 4.5. Orthotopic liver transplantation in 1999. 4.6. Revision of Kock pouch and repair of fistula in 2010. OPERATION PERFORMED: Resection of failed Kock pouch and enteroenterostomy and creation of Yajaira ileostomy. INDICATIONS AND FINDINGS: The patient was known to have a very small capacity Kock pouch with a deficient nipple valve with progressive worsening incontinence of stool and gas and increasing difficulty with intubation. DESCRIPTION OF PROCEDURE: At surgery, abdominal adhesions were moderately severe. The Kock pouch itself was of very small capacity and contracted and not amenable for safe reconstruction to create a new valve and stoma. The afferent bowel just proximal to the pouch was normal, but 8 cm proximal to that was a stricture and dissecting to mobilize the bowel, created a proximal enterotomy, and a small segment had to be resected with the BIRDIE stapling device with a BIRDIE anastomosis with the enterotomy closed with the BIRDIE. Proximal to this, efforts to mobilize more of the proximal ileum were met with severe adhesions leading into the right upper quadrant at the location of her liver transplantation and I felt it was completely inadvisable to pursue this further. The proximal bowel appeared normal without being dilated and she had no obstruction symptoms. During the takedown of the Kock pouch stoma in the right lower quadrant with a transversely oriented elliptical incision, there was intense scarring and entry made into the pouch. This was made into a pouch enterotomy when it became apparent that no reconstruction could safely be performed. There was very little available room for an anastomosis for a new segment of bowel to create a valve and stoma and would have been quite tenuous. In accordance with preoperative discussions, the pouch was resected taking the mesentery with the Thunderbeat electrosurgical device and handing the specimen off the field after dividing the afferent bowel. The stricture proximal to this had even more proximal dilatation, which would not have been satisfactory for an ileostomy and I wished to avoid sacrificing additional 1 to 2 feet of small intestine. I dilated the stricture gently with cervical Hegar dilators up to #16. I decided to bring the stoma out in the upper part of the left lower quadrant. The abdominal wall had not been disturbed previously. A circular disc of skin was excised and a cruciate incision made in the fascia with a two fingerbreadth abdominal wall hiatus. The end of the ileum was brought through and the mesentery divided for 4 to 5 cm. I decided to mature it at this time, which I did in typical everting Yajaira fashion with interrupted 3-0 chromic creating a decent nipple blood. The stoma itself appeared somewhat congested, but there was bleeding from the edges and it was viable. As I mentioned to go further proximally with on account of the stricture and proximal to that was a foot of small bowel which was very dilated with thickened mesentery, which would have to otherwise be resected in its entirety. The incision throughout had been protected with antibiotic soaked laps. The bladder and ureters had been protected. The abdomen and pelvis was copiously irrigated with warm saline and hemostasis carefully achieved with cautery and the Thunderbeat electric surgical device. The bowel loops were placed anatomically. The prior Kock pouch stoma incision was closed with continuous locked 0 PDS and the skin closed with interrupted 2-0 nylon vertical mattress sutures. The midline incision was closed with continuous #1 looped PDS and the skin closed with staplesk. A 1-3/4 inch ileostomy appliance was cut to fit and placed over the stoma followed by dry sterile dressing. Final sponge and needle counts were correct. The patient tolerated the procedure well left the operating room in stable condition. Lars Sotomayor M.D. DR: LEDA JOB#: [id number] CC: BRENDEN
--- NOTE | 2018-12-18 18:46 | NUR ---
NURSE NOTES: Received 1 and 3/4 ileostomy appliance from [employer]. Placed in patient's room (307) as ordered.
[2018-12-18] MEDS: PCA shift volume MISC SCH (19:00)
--- NOTE | 2018-12-18 19:40 | NUR ---
HAND-OFF: Report given to Lynsey NGUYEN/Ti NGUYEN. Outputs: Urine: 600 ml Ileostomy appliance: 10 ml
--- NOTE | 2018-12-18 19:45 | NUR ---
NURSE NOTES: Pt lying in bed w/bed in lowest position and call light/RERECORDING MIXER button within reach. Pt A&Ox4; VSS; on 3L NC; and in moderate pain; encouraged pt to press RERECORDING MIXER button as needed for additional pain relief. MARILY PICC line intact/asymptomatic w/IVF running; F/C patent/draining well; and Yajaira ileo bag & surgical dressing C/D/I. Will continue to monitor.
[2018-12-18] MEDS: Dyna-Hex 2% Top Sol 2oz TOPIC SCH (20:55)
[2018-12-18] MEDS: Mycophenolate 250mg cap ORAL SCH (20:56)
[2018-12-19] VITALS: BP 130/74
[2018-12-19] MEDS: HYDROmorphone 1mg/ml Carpuject SUBQ PRN (00:40)
[2018-12-19 04:00] VITALS: BP 128/70
[2018-12-19 04:32] LABS: HEMATOCRIT 35.8 % (37.0-47.0); HEMOGLOBIN 11.7 G/DL (12.0-16.0); MEAN CORPUSCULAR VOLUME 94 FL (80-99); PLATELET COUNT 215 K/UL (150-450); RED CELL DISTRIBUTION WIDTH 12.8 % (11.6-14.8)
[2018-12-19 04:38] LABS: ANION GAP 8 mmol/L (5-15); BLOOD UREA NITROGEN 12 mg/dL (7-18); CALCIUM 8.6 MG/DL (8.5-10.1); CARBON DIOXIDE 20 MMOL/L (21-32); CHLORIDE 110 MMOL/L (98-107); CREATININE 1.1 MG/DL (0.55-1.30); POTASSIUM 4.5 MMOL/L (3.5-5.1); SODIUM 138 MMOL/L (136-145)
[2018-12-19] MEDS: Levothyroxine 125mcg tab ORAL SCH (06:12)
[2018-12-19] MEDS: Piperacillin/Tazobactam 3.375 GM in NS 110 ML IVPB SCH ×4 (06:13→23:56)
[2018-12-19] MEDS: PCA shift volume MISC SCH ×2 (07:25→19:29)
--- NOTE | 2018-12-19 07:25 | NUR ---
NURSE NOTES: Report received from Lynsey RN and Ti RN, rounds made. Patient resting in semi-fowlers position in bed. Fatigued/sleeping, awakens to name. No distress or SOB on O2 3LNC. IVF (D5 1/4 + 20 KCL) infusing at 100 ml/hr, HUMAN RESOURCES SERVICES SPECIALIST (Dilaudid) connected as ordered to left PICC, site asymptomatic. FC in place, secured to left thigh, draining to gravity, yellow clear urine. Right abdomen dressing CDI. Left upper abdomen, Yajaira ileostomy drain bag intact, surrounding skin intact, small amount of dark brown output noted in bag. Patient has pillow over abdomen as splint. Encouraged IS use with voluntary coughing, verbalized understanding. Bilateral SCDs on. No NV/emesis at this time. Reinforced NPO status, ice chips provided. Call light in reach, bed in lowest position, will continue to monitor.
--- NOTE | 2018-12-19 07:28 | General Progress Note ---
Progress Note Progress Note AVSS Had emesis x 2 last evening - none overnight. Having pain relieved with Dilaudid TWO WAY RADIO INSTALLER Abdomen distended, soft, incisions clean. Stoma pink WBC 14,000 Hgb 11.7 BUN 1`2 Cr 1.1 Imp. Ileus Plan: NPO Monitor Prograf and Cellcept - per Dr. Dozier/GI Mobilize Lars Sotomayor MD Dec 19, 2018 07:28
--- NOTE | 2018-12-19 07:29 | NUR ---
HAND-OFF: Report given to PATRICK Navarro. Endorsed to please ambulate pt this AM, per Dr. Sotomayor.
[2018-12-19 08:00] VITALS: BP 137/81
[2018-12-19] MEDS: Mycophenolate 250mg cap ORAL SCH ×2 (08:55→20:19)
[2018-12-19] MEDS: D5 1/4NS w/KCl 20mEq 1,000 ML IV SCH ×2 (08:56→20:18)
[2018-12-19] MEDS ORDERED: Tubing IV Secondary IV ONE (09:39)
[2018-12-19] MEDS ORDERED: NS Irrig 1000ml ONE (09:39)
--- NOTE | 2018-12-19 10:30 | NUR ---
*-* NO INSURANCE INFORMATION IN THE BAR UNABLE TO SEND CLINICALS OR REVIEWS *-*
[2018-12-19 12:00] VITALS: BP 139/74
--- NOTE | 2018-12-19 12:09 | GI Progress Note ---
Assessment/Plan Problems: (1) Malfunctioning Kock Pouch (2) History of liver transplant ICD Codes: Z94.4 - Liver transplant status SNOMED: [id number] Status: unchanged Status Narrative Discussed with Dr. Dozier. Assessment/Plan 1. Malfunctioning Kock pouch continent ileostomy with increasing difficulty with intubation and increasing incontinence of stool and gas. 2. History of ulcerative colitis. 3. History of primary sclerosing cholangitis. 4. STATUS POST MULTIPLE ABDOMINAL OPERATIONS: 4.1. Proctocolectomy and Kock pouch continent ileostomy in 1978. 4.2. Total abdominal hysterectomy and bilateral salpingo-oophorectomy in 1983. 4.3. Appendectomy age 15. 4.4. Cholecystectomy in 1985. 4.5. Liver transplantation in 1999. 4.6. Laparotomy with revision of Kock pouch and repair of pouch cutaneous fistula in 2010. Status post exploratory laparotomy with lysis of the adhesions and continent pouch repair maintain NPO + IVF at this time, okay to start CLD when patient nausea improves continue zosyn monitor tacrolimus levels, WNL at this time zofran prn, defer reglan given allergy trend LFTs endoscopy if necessary The patient was seen and examined at bedside and all new and available data was reviewed in the patients chart. I agree with the above findings, impression and plan. (Patient seen earlier today. Signature stamp does not reflect patient encounter time.). - Max Dozier MD Subjective Subjective had episode of emesis last night c/o of reflux discomfort Objective Last 24 Hour Vital Signs Date Time Temp Pulse Resp B/P (MAP) Pulse Ox O2 Delivery O2 Flow Rate FiO2 12/19/18 08:00 18 12/19/18 08:00 98.9 86 18 137/81 (99) 100 12/19/18 04:00 18 12/19/18 04:00 98.7 95 18 128/70 (89) 98 12/19/18 01:10 97.9 12/19/18 00:00 18 12/19/18 00:00 97.9 90 18 130/74 (92) 100 12/18/18 21:00 Nasal Cannula 3.0 12/18/18 20:00 97.4 84 18 136/70 (92) 99 12/18/18 20:00 18 12/18/18 16:08 97 Nasal Cannula 2.0 28 12/18/18 16:00 97.6 84 20 153/88 (109) 99 12/18/18 16:00 13 12/18/18 14:30 97.2 94 20 142/76 (98) 97 12/18/18 13:30 97.5 79 18 154/89 (110) 98 12/18/18 13:00 97.6 82 20 162/84 (110) 98 12/18/18 12:30 Nasal Cannula 3.0 12/18/18 12:30 13 12/18/18 12:30 97.6 79 18 160/84 (109) 97 12/18/18 12:20 97.9 12/18/18 12:20 97.9 82 15 156/88 100 Nasal Cannula 3 12/18/18 12:18 11 12/18/18 12:15 78 15 161/83 100 Nasal Cannula 3 Intake and Output 12/18/18 12/19/18 19:00 07:00 Intake Total 1850 ml 1540 ml Output Total 660 ml 355 ml Balance 1190 ml 1185 ml Intake Oral 120 ml IV Total 1600 ml 1420 ml Other 250 ml Output Urine Total 550 ml 350 ml Estimated Blood Loss 100 ml Other 10 ml 5 ml Laboratory Tests Test 12/19/18 04:15 White Blood Count 14.0 K/UL (4.8-10.8) #H Red Blood Count 3.80 M/UL (4.20-5.40) L Hemoglobin 11.7 G/DL (12.0-16.0) L Hematocrit 35.8 % (37.0-47.0) L Mean Corpuscular Volume 94 FL (80-99) Mean Corpuscular Hemoglobin 30.7 PG (27.0-31.0) Mean Corpuscular Hemoglobin Concent 32.6 G/DL (32.0-36.0) Red Cell Distribution Width 12.8 % (11.6-14.8) Platelet Count 215 K/UL (150-450) Mean Platelet Volume 6.1 FL (6.5-10.1) L Neutrophils (%) (Auto) % (45.0-75.0) Lymphocytes (%) (Auto) % (20.0-45.0) Monocytes (%) (Auto) % (1.0-10.0) Eosinophils (%) (Auto) % (0.0-3.0) Basophils (%) (Auto) % (0.0-2.0) Sodium Level 138 MMOL/L (136-145) Potassium Level 4.5 MMOL/L (3.5-5.1) Chloride Level 110 MMOL/L (98-107) H Carbon Dioxide Level 20 MMOL/L (21-32) L Anion Gap 8 mmol/L (5-15) Blood Urea Nitrogen 12 mg/dL (7-18) Creatinine 1.1 MG/DL (0.55-1.30) Estimat Glomerular Filtration Rate 49.6 mL/min (>60) Glucose Level 168 MG/DL (74-106) H Calcium Level 8.6 MG/DL (8.5-10.1) Height (Feet): 5 Height (Inches): 5.00 Weight (Pounds): 135 General Appearance: WD/WN, no apparent distress, alert Cardiovascular: normal rate Respiratory/Chest: normal breath sounds, no respiratory distress Abdominal Exam: normal bowel sounds, non tender, soft Extremities: normal range of motion, non-tender Jeyson Luna NP Dec 19, 2018 12:09
--- NOTE | 2018-12-19 12:32 | 48 Hour Post Anesthesia Eval ---
Post Anesthesia Evaluation Procedure: Exploratory laparotomy, lysis of adhesions, resection of continent pouch Date of Evaluation: Dec 19, 2018 Time of Evaluation: 12:30 Blood Pressure Systolic: 136 0: 74 Pulse Rate: 72 Respiratory Rate: 20 Temperature (Fahrenheit): 97.6 O2 Sat by Pulse Oximetry: 98 Airway: patent Nausea: No Vomiting: No Pain Intensity: 3 Hydration Status: adequate Cardiopulmonary Status: stable Mental Status/LOC: patient returned to baseline Follow-up Care/Observations: n/a Post-Anesthesia Complications: none Follow-up care needed: N/A Ulises Sevilla MD Dec 19, 2018 12:32
--- NOTE | 2018-12-19 13:41 | NUR ---
CASE MANAGEMENT:REVIEW 12/19/18 SI: POD #1 MALFUNCTIONING KOCK POUCH CONTINENT ILEOSTOMY S/P RESECTION,ENTEROENTEROSTOMY AND CREATION OF SUKHI ILEOSTOMY 99.0 91 20 139/74 98% ON RA WBC+14.0 IS: NPO ASSISTANT STORE DIRECTOR DILAUDID IV ZOSYN Q6HRS PROGRAF PO QHS CELLCEPT PO Q12 IVF@100/HR : MED/SURG STATUS 3 EAST
--- NOTE | 2018-12-19 14:45 | NUR ---
NURSE NOTES: Patient transferred to chair with RN and spouse assist. Up to chair for approximately 40 minutes, tolerated fair. Patient refused to ambulate, will offer assistance again later. No NV. Patient experiencing reflux/heartburn. Dr. Sotomayor and Jose Maria SYSTEMS ARCHITECTURE ANALYST notified, see order. Administered Protonix PO as ordered. Ice chips provided. HOB elevated. Will continue to monitor.
--- NOTE | 2018-12-19 15:32 | NUR ---
*-*INSURANCE *-* ALL CLINICALS AND REVIEWS HAVE BEEN FAXED TO: [facility]#[phone]
[2018-12-19 16:00] VITALS: BP 145/75
--- NOTE | 2018-12-19 19:15 | NUR ---
HAND-OFF: Report given to John RN. Outputs: Pickett: 275 ml Yajaira Ileostomy: 30 ml
--- NOTE | 2018-12-19 19:30 | NUR ---
NURSE NOTES: Receive a report from PATRICK Navarro. Round is done. Pain on lower abdomen area control for SKIP TENDER pump via PICC on left upper arm. Breathing is even and non labored. No acute distress noted. Ileostomy bag attached on left upper abdomen with greenish sticky drainage. Op sites kept with gauze dry and clean. Pickett catheter inserted state and patent with yellowish urine. On SCDs bilateral L/E for DVT prophylaxis. Pt is aware of purpose. On NPO for therapeutic except ice chips and medication. Encourage to use I/S while wake every hour. Call light within reach. Will continue to monitor.
[2018-12-19 20:00] VITALS: BP 158/79
[2018-12-19] MEDS: Dyna-Hex 2% Top Sol 2oz TOPIC SCH (20:18)
[2018-12-20] VITALS (7 sets, daily range): BP systolic 118–182; BP diastolic 59–96
--- NOTE | 2018-12-20 00:15 | NUR ---
NURSE NOTES: Pt just awoke, alert. Breathing is even and non labored. On O2 2L NC inhalation. Noted BP: 181/96mmHg without ASH or neck stiffness. On continuous Dilaudid 0.1mg via CONTINUING EDUCATION DIRECTOR pump but states 10/10 pain on lower abdomen of op sites. One time bile color 100ml vomiting. Provide prn Zofran 4mg IVP. CN made aware of pt's conditions. Will continue to monitor.
[2018-12-20] MEDS: HYDROmorphone 1mg/ml Carpuject SUBQ PRN (00:26)
--- NOTE | 2018-12-20 01:00 | NUR ---
NURSE NOTES: Nausea sensation relieved. Mild amount of whitish sputum with cough noted. Encourage for self-expectoration. Pain relieved 3-4/10 after prn Dilaudid 1mg sc and expresses comfortable. Rechecked BP: 168/82mmHg. Will continue to monitor.
--- NOTE | 2018-12-20 04:00 | NUR ---
NURSE NOTES: Pt is easily aroused by entering room, alert. No acute distress noted. No vomiting noted but mild nausea noted. Waiting for prn medication due. BP checked as 160/80mmHg. BT: 99.5F. No chilling and febrile sensation noted. Will continue to monitor.
[2018-12-20 04:55] LABS: HEMATOCRIT 33.9 % (37.0-47.0); HEMOGLOBIN 11.2 G/DL (12.0-16.0); MEAN CORPUSCULAR VOLUME 93 FL (80-99); PLATELET COUNT 185 K/UL (150-450); RED BLOOD COUNT 3.63 M/UL (4.20-5.40); RED CELL DISTRIBUTION WIDTH 12.6 % (11.6-14.8); WHITE BLOOD COUNT 13.9 K/UL (4.8-10.8)
[2018-12-20 05:38] LABS: PHOSPHORUS 1.7 MG/DL (2.5-4.9)
[2018-12-20 05:46] LABS: ALANINE AMINOTRANSFERASE 31 U/L (12-78); ALBUMIN 2.2 G/DL (3.4-5.0); ALBUMIN/GLOBULIN RATIO 0.6 (1.0-2.7); ALKALINE PHOSPHATASE 100 U/L (46-116); ANION GAP 9 mmol/L (5-15); ASPARTATE AMINO TRANSFERASE 14 U/L (15-37); BILIRUBIN,TOTAL 0.6 MG/DL (0.2-1.0); BLOOD UREA NITROGEN 10 mg/dL (7-18); CALCIUM 8.8 MG/DL (8.5-10.1); CARBON DIOXIDE 20 MMOL/L (21-32); CHLORIDE 105 MMOL/L (98-107); CREATININE 1.1 MG/DL (0.55-1.30); POTASSIUM 3.7 MMOL/L (3.5-5.1); SODIUM 134 MMOL/L (136-145)
[2018-12-20] MEDS: Piperacillin/Tazobactam 3.375 GM in NS 110 ML IVPB SCH (05:49)
--- NOTE | 2018-12-20 06:00 | NUR ---
NURSE NOTES: No vomiting noted. Nausea sense is tolerable state. Refuses to take prn medication at this time. Encourage to ambulation during daytime. Will continue to monitor. Urine output: 725ml orange color Ileostomy output: 70ml dark greenish color.
[2018-12-20] MEDS: Levothyroxine 125mcg tab ORAL SCH (06:28)
[2018-12-20] MEDS: D5 1/4NS w/KCl 20mEq 1,000 ML IV SCH (06:30)
--- NOTE | 2018-12-20 06:40 | NUR ---
NURSE NOTES: Receive a report from Lab that Mg level is critically low as 0.9. CN made aware. Call to Dr. Sotomayor and leave a message the results of lab, the level of Mg, Ph, electrolyte and WBC including pt's BP values over night. Waiting for call back. Will continue to monitor.
--- NOTE | 2018-12-20 07:03 | NUR ---
NURSE NOTES: Report received from o RN, rounds made. Patient sleeping in semi-fowlers position in bed, awakens to name. No distress on O2 3LNC. IVF (D5 1/4 NS +20 KCL) infusing at 100 ml/hr, TRANSPORTATION CLERK (Dilaudid) connected as ordered, to left upper arm PICC, dressing CDI, mild redness/bruising noted, will mention to Dr. Sotomayor. Left upper abdomen, Yajaira ileostomy appliance intact, dark green output noted in bag. FC patent, draining to gravity. Bilateral SCDs on. Abdominal pain 7/10, tolerating TRANSPORTATION CLERK. Reinforced NPO status, ice chips provided. Call light in reach, bed in lowest position, will continue to monitor.
[2018-12-20] MEDS: PCA shift volume MISC SCH ×3 (07:12→19:00)
--- NOTE | 2018-12-20 07:20 | NUR ---
NURSE NOTES: Dr. Dozier order 3 bags of Magnesium. Order noted and carried out. Endorse to AM nurse. Will continue to monitor.
--- NOTE | 2018-12-20 07:21 | General Progress Note ---
Assessment/Plan Status: unchanged Assessment/Plan: (1) Malfunctioning Kock Pouch (2) History of liver transplant ICD Codes: Z94.4 - Liver transplant status SNOMED: 912312217 Status: unchanged Status Narrative Discussed with Dr. Dozier. Assessment/Plan 1. Malfunctioning Kock pouch continent ileostomy with increasing difficulty with intubation and increasing incontinence of stool and gas. 2. History of ulcerative colitis. 3. History of primary sclerosing cholangitis. 4. STATUS POST MULTIPLE ABDOMINAL OPERATIONS: 4.1. Proctocolectomy and Kock pouch continent ileostomy in 1978. 4.2. Total abdominal hysterectomy and bilateral salpingo-oophorectomy in 1983. 4.3. Appendectomy age 15. 4.4. Cholecystectomy in 1985. 4.5. Liver transplantation in 1999. 4.6. Laparotomy with revision of Kock pouch and repair of pouch cutaneous fistula in 2010. Status post exploratory laparotomy with lysis of the adhesions and continent pouch repair maintain NPO + IVF at this time, okay to start CLD when patient nausea improves continue zosyn monitor tacrolimus levels, WNL at this time zofran prn, defer reglan given allergy trend LFTs endoscopy if necessary ordered TPN replace magnisium Subjective ROS Limited/Unobtainable: Yes Allergies: Coded Allergies: CODEINE (Verified Allergy, Severe, 12/17/18) Face contractions HYDROMORPHONE (Verified Allergy, Severe, Itching, 12/17/18) Itching whole body METOCLOPRAMIDE (Verified Allergy, Severe, 12/17/18) Face contractions MORPHINE (Verified Allergy, Severe, Shortness of Breath, 12/17/18) SULFA (SULFONAMIDE ANTIBIOTICS) (Verified Allergy, Severe, 12/17/18) Face contractions Subjective min abd pain Objective Last 24 Hour Vital Signs Date Time Temp Pulse Resp B/P (MAP) Pulse Ox O2 Delivery O2 Flow Rate FiO2 12/20/18 04:00 99.5 92 16 160/80 (106) 95 12/20/18 04:00 16 12/20/18 00:00 98.9 106 16 181/96 (124) 99 12/20/18 00:00 16 12/19/18 21:00 Nasal Cannula 3.0 12/19/18 20:00 99.0 104 18 158/79 (105) 96 12/19/18 20:00 18 12/19/18 19:50 98 Nasal Cannula 2.0 28 12/19/18 16:00 16 12/19/18 16:00 98.8 95 18 145/75 (98) 100 12/19/18 12:32 72 20 98 12/19/18 12:00 99.0 91 20 139/74 (95) 98 12/19/18 12:00 18 12/19/18 09:00 Nasal Cannula 3.0 12/19/18 08:00 18 12/19/18 08:00 98.9 86 18 137/81 (99) 100 Intake and Output 12/19/18 12/20/18 19:00 07:00 Intake Total 900 ml 1350 ml Output Total 305 ml 895 ml Balance 595 ml 455 ml Intake Oral 50 ml IV Total 900 ml 1300 ml Output Urine Total 275 ml 725 ml Emesis 100 ml Other 30 ml 70 ml Laboratory Tests 12/20/18 04:20: White Blood Count 13.9H, Red Blood Count 3.63L, Hemoglobin 11.2L, Hematocrit 33.9L, Mean Corpuscular Volume 93, Mean Corpuscular Hemoglobin 30.9, Mean Corpuscular Hemoglobin Concent 33.1, Red Cell Distribution Width 12.6, Platelet Count 185, Mean Platelet Volume 6.1L, Neutrophils (%) (Auto) , Lymphocytes (%) ( Auto) , Monocytes (%) (Auto) , Eosinophils (%) (Auto) , Basophils (%) (Auto) , Neutrophils % (Manual) [Pending], Lymphocytes % (Manual) [Pending], Platelet Estimate [Pending], Platelet Morphology [Pending], Sodium Level 134L, Potassium Level 3.7, Chloride Level 105, Carbon Dioxide Level 20L, Anion Gap 9, Blood Urea Nitrogen 10, Creatinine 1.1, Estimat Glomerular Filtration Rate 49.6, Glucose Level 175H, Calcium Level 8.8, Phosphorus Level 1.7L, Magnesium Level 0.9*L, Total Bilirubin 0.6, Aspartate Amino Transf (AST/SGOT) 14L, Alanine Aminotransferase (ALT/SGPT) 31, Alkaline Phosphatase 100, Total Protein 6.1L, Albumin 2.2L, Globulin 3.9, Albumin/Globulin Ratio 0.6L, Tacrolimus (Prograf) Level [Pending] Height (Feet): 5 Height (Inches): 5.00 Weight (Pounds): 135 General Appearance: alert EENT: normal ENT inspection Neck: supple Cardiovascular: normal peripheral pulses Respiratory/Chest: decreased breath sounds Abdomen: normal bowel sounds, other - ileostomy bag in place with green fluid in it Max Dozier MD Dec 20, 2018 07:21
--- NOTE | 2018-12-20 07:30 | NUR ---
HAND-OFF: Report given to PATRICK Navarro. Round is done. Receive a call from Dr. Sotomayor and will be the unit soon. AM shift nurse and CN made aware.
[2018-12-20] MEDS ORDERED: Naloxone 0.4mg/ml Inj IVP PRN (08:14)
[2018-12-20] MEDS ORDERED: Rate Change PCA 1 Each MISC PRN (08:15)
[2018-12-20] MEDS: Mycophenolate 250mg cap ORAL SCH ×2 (08:26→20:43)
--- NOTE | 2018-12-20 09:15 | General Progress Note ---
Progress Note Progress Note AVSS c/o pain and nausea with emesis last night 100cc bilious Intermittent elevated BP and P Abdomen distended, soft, incision clean, stoma pink Urine 1000cc Ileostomy 70 enteric now WBC 13,900 Hgb 11.2 BUN 10 Cr 1.1 Mg 0.9 P 1.7 Imp. Ileus Plan; add compazine to Zofran prn nausea TPN and management of liver transplant per Dr. Dozier NPO, continue Pickett (pelvic dissection) Lars Sotomayor MD Dec 20, 2018 09:15
--- NOTE | 2018-12-20 10:00 | NUR ---
NURSE NOTES: Notified Dr. Sotomayor of patient elevated BP reading for overnight stocker and this AM 165/94 mmHg, see orders for Captopril PRN. Notified Dr. Sotomayor of Left PICC surrounding skin redness/bruising, no further orders. Compazine STAT ordered, administered as ordered, see eMAR. No NV at this time. Will continue to monitor.
[2018-12-20] MEDS ORDERED: D5 1/4NS w/KCl 20mEq 1,000 ML IV SCH ×2 (10:45→20:00)
[2018-12-20] MEDS ORDERED: Potassium Phosphate 20 MM in NS 275 ML IV ONE (10:45)
--- NOTE | 2018-12-20 11:00 | NUR ---
NURSE NOTES: IVF rate reduced to 50 ml/hr as ordered, new label scanned as provided by pharmacy. O2 reduced to 2LNC, saturations stable at 99 %. Will continue to monitor.
[2018-12-20] MEDS ORDERED: DiphenhydrAMINE 50mg/ml Inj IVP PRN (11:45)
[2018-12-20] MEDS: Captopril 12.5mg tab SL PRN (12:38)
--- NOTE | 2018-12-20 13:35 | NUR ---
NURSE NOTES: Patient blood pressure 182/92 mmHg, HR 97, asymptomatic, no chest pain/dizziness. Administered Captopril 12.5 SL as ordered at 1238, rechecked BP at 1335, 120/59 mmHg HR 102, will continue to monitor.
[2018-12-20] MEDS ORDERED: NS 275ml ONE (15:22)
[2018-12-20] MEDS ORDERED: Tubing IV Secondary IV ONE (15:22)
[2018-12-20] MEDS: PCA HYDROmorphone 1mg/ml 30 ML IV PRN (16:49)
--- NOTE | 2018-12-20 18:00 | NUR ---
NURSE NOTES: Patient refused to ambulate throughout shift. Encouraged patient to dangle at bedside and ambulate in room at this time. Patient is very weak, only ambulated about 8 steps then returned to bed. Will endorse to next shift to assist patient to try to ambulate another short distance again later.
--- NOTE | 2018-12-20 19:25 | NUR ---
HAND-OFF: Report given to Neetu NGUYEN. Endorsed TPN will start tonight at 1999 and IVF rate will reduce to 20 ml/hr. Outputs: Ileostomy: 85 ml Pickett: 1475 ml
--- NOTE | 2018-12-20 19:55 | NUR ---
NURSE NOTES: Dr. Dozier notified of Mycophenolic Acid lab results 0.7 (range: 1.0-3.5), reviewed Cellcept order (750 mg Q12 hr), no further orders at this time.
[2018-12-20] MEDS ORDERED: Dextrose 10% 1,000 ML IV PRN (20:00)
[2018-12-20] MEDS ORDERED: TPN IV SCH (20:00)
[2018-12-20] MEDS ORDERED: FAT EMULSION 20% IV SCH (20:00)
--- NOTE | 2018-12-20 20:06 | NUR ---
NURSE NOTES: Patient in bed, asleep, arousable to name. Patient is alert, oriented, verbally responsive. PICC in left upper arm in place, running IV fluids. On ELECTRON BEAM WELDER SETTER Dilaudid. No s/s respiratory distress noted, on nasal canula 2 liters. Ileostomy bag attached on left upper abdomen with greenish drainage noted. Pickett in place, secured, draining to gravity. Bed in lowest position, call light within reach. Will continue to monitor.
[2018-12-20] MEDS: Dyna-Hex 2% Top Sol 2oz TOPIC SCH (20:43)
[2018-12-20] MEDS ORDERED: Fat Emulsion Iv 20% 250 ML IV SCH (21:00)
[2018-12-21 00:25] VITALS: BP 164/82
[2018-12-21] MEDS: Captopril 12.5mg tab SL PRN ×2 (00:26→12:13)
[2018-12-21] MEDS: NovoLOG Insulin Flexpen SUBQ SCH ×4 (00:27→18:24)
--- NOTE | 2018-12-21 00:40 | NUR ---
NURSE NOTES: Patient BP 164/82 HR 99. Capoten 12.5 mg PRN medication was given as ordered. Will continue to monitor.
[2018-12-21] MEDS: PCA HYDROmorphone 1mg/ml 30 ML IV PRN (01:48)
--- NOTE | 2018-12-21 01:51 | NUR ---
NURSE NOTES: DIRECTOR OF CONSTRUCTION Dilaudid beeped with notification "SYRINGE EMPTY". Changed DIRECTOR OF CONSTRUCTION Dilaudid syringe and verified with charge nurse, PATRICK Jose.
[2018-12-21 04:32] VITALS: BP 159/85
--- NOTE | 2018-12-21 05:39 | NUR ---
NURSE NOTES: Patient felt nauseous and was expectorating out spit. Zofran 4 mg PRN was given as ordered. Will continue to monitor.
[2018-12-21] MEDS: Levothyroxine 125mcg tab ORAL SCH (05:57)
--- NOTE | 2018-12-21 06:38 | NUR ---
NURSE NOTES: Patient no longer feeling nauseous, v/s stable, no distress noted. Patient was able to stand up next to the side of the bed but not able to walk around, patient wanted to go back to bed. Will continue to monitor.
[2018-12-21 06:59] LABS: HEMATOCRIT 30.3 % (37.0-47.0); HEMOGLOBIN 10.1 G/DL (12.0-16.0); MEAN CORPUSCULAR VOLUME 93 FL (80-99); PLATELET COUNT 190 K/UL (150-450); RED BLOOD COUNT 3.25 M/UL (4.20-5.40); RED CELL DISTRIBUTION WIDTH 12.4 % (11.6-14.8); WHITE BLOOD COUNT 10.8 K/UL (4.8-10.8)
--- NOTE | 2018-12-21 07:06 | General Progress Note ---
Assessment/Plan Status: unchanged Assessment/Plan: (1) Malfunctioning Kock Pouch (2) History of liver transplant ICD Codes: Z94.4 - Liver transplant status SNOMED: [id number] Status: unchanged Status Narrative Discussed with Dr. Dozier. Assessment/Plan 1. Malfunctioning Kock pouch continent ileostomy with increasing difficulty with intubation and increasing incontinence of stool and gas. 2. History of ulcerative colitis. 3. History of primary sclerosing cholangitis. 4. STATUS POST MULTIPLE ABDOMINAL OPERATIONS: 4.1. Proctocolectomy and Kock pouch continent ileostomy in 1978. 4.2. Total abdominal hysterectomy and bilateral salpingo-oophorectomy in 1983. 4.3. Appendectomy age 15. 4.4. Cholecystectomy in 1985. 4.5. Liver transplantation in 1999. 4.6. Laparotomy with revision of Kock pouch and repair of pouch cutaneous fistula in 2010. Status post exploratory laparotomy with lysis of the adhesions and continent pouch repair maintain NPO + IVF at this time, okay to start CLD when patient nausea improves continue zosyn monitor tacrolimus levels,increase the dose to 3 gm per day(spoke with pharmacy) add zofran prn, compazine prn trend LFTs endoscopy if necessary on TPN Subjective ROS Limited/Unobtainable: Yes Allergies: Coded Allergies: CODEINE (Verified Allergy, Severe, 12/17/18) Face contractions HYDROMORPHONE (Verified Allergy, Severe, Itching, 12/17/18) Itching whole body METOCLOPRAMIDE (Verified Allergy, Severe, 12/17/18) Face contractions MORPHINE (Verified Allergy, Severe, Shortness of Breath, 12/17/18) SULFA (SULFONAMIDE ANTIBIOTICS) (Verified Allergy, Severe, 12/17/18) Face contractions Subjective min abd pain c/o nausea feeling better Objective Last 24 Hour Vital Signs Date Time Temp Pulse Resp B/P (MAP) Pulse Ox O2 Delivery O2 Flow Rate FiO2 12/21/18 04:32 98.2 100 18 159/85 (109) 99 12/21/18 04:00 18 12/21/18 02:18 98.5 12/21/18 01:51 18 12/21/18 00:26 164/82 12/21/18 00:25 98.5 99 18 164/82 (109) 97 12/21/18 00:24 18 12/20/18 21:00 Nasal Cannula 2.0 12/20/18 20:20 16 12/20/18 20:06 97 Nasal Cannula 2.0 28 12/20/18 20:00 99.4 102 18 147/78 (101) 99 12/20/18 16:00 98.5 101 16 118/64 (82) 99 12/20/18 16:00 16 12/20/18 13:35 102 120/59 (79) 12/20/18 12:38 182/92 12/20/18 12:00 16 12/20/18 12:00 98.4 97 16 182/92 (122) 99 12/20/18 09:00 Nasal Cannula 2.0 12/20/18 08:00 98.7 100 16 165/94 (117) 99 12/20/18 08:00 16 Intake and Output 12/20/18 12/21/18 19:00 07:00 Intake Total 500 ml 1020.375 ml Output Total 1560 ml 930 ml Balance -1060 ml 90.375 ml IV Total 500 ml 1020.375 ml Output Urine Total 1475 ml 850 ml Other 85 ml 80 ml Laboratory Tests 12/21/18 05:00: White Blood Count 10.8, Red Blood Count 3.25L, Hemoglobin 10.1L, Hematocrit 30.3L, Mean Corpuscular Volume 93, Mean Corpuscular Hemoglobin 31.0, Mean Corpuscular Hemoglobin Concent 33.3, Red Cell Distribution Width 12.4, Platelet Count 190, Mean Platelet Volume 6.5, Neutrophils (%) (Auto) , Lymphocytes (%) ( Auto) , Monocytes (%) (Auto) , Eosinophils (%) (Auto) , Basophils (%) (Auto) , Neutrophils % (Manual) [Pending], Lymphocytes % (Manual) [Pending], Platelet Estimate [Pending], Platelet Morphology [Pending], Sodium Level [Pending], Potassium Level [Pending], Chloride Level [Pending], Carbon Dioxide Level [ Pending], Blood Urea Nitrogen [Pending], Creatinine [Pending], Estimat Glomerular Filtration Rate [Pending], Glucose Level [Pending], Calcium Level [ Pending], Phosphorus Level [Pending], Magnesium Level [Pending] Height (Feet): 5 Height (Inches): 5.00 Weight (Pounds): 135 General Appearance: alert EENT: normal ENT inspection Neck: supple Cardiovascular: normal peripheral pulses Respiratory/Chest: lungs clear Abdomen: non tender, soft Extremities: non-tender Max Dozier MD Dec 21, 2018 07:06
[2018-12-21] MEDS: PCA shift volume MISC SCH ×2 (07:07→19:00)
--- NOTE | 2018-12-21 07:18 | NUR ---
HAND-OFF: Report given to JASBIR GAN RN.
[2018-12-21 07:25] LABS: ANION GAP 8 mmol/L (5-15); BLOOD UREA NITROGEN 11 mg/dL (7-18); CARBON DIOXIDE 25 MMOL/L (21-32); CHLORIDE 105 MMOL/L (98-107); CREATININE 0.9 MG/DL (0.55-1.30); PHOSPHORUS 1.5 MG/DL (2.5-4.9); POTASSIUM 3.1 MMOL/L (3.5-5.1); SODIUM 138 MMOL/L (136-145)
--- NOTE | 2018-12-21 07:27 | NUR ---
NURSE NOTES: Patient is in bed awake and able to verbalize needs. Stable. Denies severe pain, patient stated that MOLD CHANGER is managing pain. Will continue to monitor pain throughout shift. PICC patent and running IVF, TPN, and MOLD CHANGER as ordered. F/C patent and draining yellow urine. No complaints of burning or discomfort at this time. Plan of care discussed with patient, will encourage ambulation when patient is more awake. Patient encouraged to use call light for assistance, verbalized understanding. Patient is in bed in locked and lowest position with overhead trapeze in place and call light within reach. Will continue to monitor.
[2018-12-21 08:00] VITALS: BP 158/72
[2018-12-21] MEDS ORDERED: Mycophenolate 250mg cap ORAL SCH ×2 (09:00→21:00)
--- NOTE | 2018-12-21 09:29 | General Progress Note ---
Progress Note Progress Note AVSS with mild tachycardia and elevated BP. Pain is controlled - c/o strange thoughts, etc Able to ambulate in room yesterday Abdomen remains distended, soft, incision clean, stoma pink with some effluent Urine 2325 Ileostomy 165 WBC now normal 10,800 Hgb down 10.1 K 3.1 P 1.5 Mg 1.5 Imp. Ileus Spontaneous diuresis Plan: d/c basal infusion of dilaudid DIVISION MANAGER Mg and P infusions, increase KCL in IV fluids continue npo, Pickett, TPN PT mobility protocol f/u labs WOCN new ileostomy teaching to start tomorrow Lars Sotomayor MD Dec 21, 2018 09:29
--- NOTE | 2018-12-21 09:30 | NUR ---
NURSE NOTES: Magnesium running through PICC as ordered. Patient made aware of PT today. Physical therapist aware and will see her shortly. Patient is comfortable in bed in locked and lowest position with call light within reach. Will continue to monitor.
[2018-12-21] MEDS ORDERED: PCA HYDROmorphone 1mg/ml 30 ML IV PRN (09:45)
[2018-12-21] MEDS ORDERED: Naloxone 0.4mg/ml Inj IVP PRN (09:45)
[2018-12-21] MEDS ORDERED: DiphenhydrAMINE 50mg/ml Inj IVP PRN (09:45)
[2018-12-21] MEDS ORDERED: Potassium Phosphate 30 MM in NS 275 ML IV ONE (10:00)
[2018-12-21] MEDS: D5 1/2NS w/KCl 40meq 1000ml 1,000 ML IV SCH (10:28)
--- NOTE | 2018-12-21 10:28 | NUR ---
RD ASSESSMENT & RECOMMENDATIONS SEE CARE ACTIVITY FOR COMPLETE ASSESSMENT DAILY ESTIMATED NEEDS: Needs based on Surgery 61kg 25-30 kcals/kg 4277-1505 total kcals 1-2 g protein/kg 61-122 g total protein 25-30 mL/kg 3205-2856 total fluid mLs NUTRITION DIAGNOSIS: Altered GI fxn r/t h/o UC and malfunctioning kock pouch as evidenced by pt is now s/p kock pouch takedown w/ creation of Yajaira ileo, NPO w/ ileus, on TPN. PARENTERAL NUTRITION RECOMMENDATIONS: D/AA Rate: 65 IL Rate: 9 Total Rate: 74 Volume: 1776 % Dextrose: 18 % AA: 5.5 Energy (kcals): 1730 Protein (g/ protein): 86 Nonprotein KCALS: 1386 GIR (mg CHO/kg/min): 3.2 % Fat KCALS: 25 NPC: N Ratio: 101:1 TPN Comment: Rec formula change:D18% + AA 5.5% @65ml/hr with 20% IL @9ml/hr-> 74ml/hr x24 hrs All 3:1, total of 1730 kcal/day to provide 28 kcal/kg and 1.4g/kg pro. - Rate to start per MD - Monitor lytes, BG, and LFT's w/ TPN. D/w pharmacy. ------ ADDITIONAL RECOMMENDATIONS: 1) Obtain a standing weight as pt is able to ambulate in halls 2) Monitor lytes and BG daily Replete as needed 3) LFT's weekly 4) Pt to start clears as per
[2018-12-21 12:00] VITALS: BP 180/91
[2018-12-21 16:00] VITALS: BP 167/91
--- NOTE | 2018-12-21 16:23 | NUR ---
PT Note PT mitch completed, tx initiated. Patient has muscle weakness and pain on her surgical incisions, limiting her mobility and gait. Patient needs PT To increase her muscle strength to improve her functional mobility and gait and enable her to return home. Addendum: 12/21/18 at 1624 by DEBRA GODOY PT Amended: Links added.
[2018-12-21] MEDS ORDERED: Ketorolac 30mg Inj IV SCH ×2 (16:45)
--- NOTE | 2018-12-21 18:46 | NUR ---
NURSE NOTES: Patient encouraged to ambulate with RN throughout shift, patient refused. Patient stated that she will walk tomorrow. Intake and Output recorded. Patient is stable. Denies pain at this time. Patient stated Toradol is effective, patient made aware of medication schedule.
--- NOTE | 2018-12-21 19:46 | NUR ---
HAND-OFF: Report given to Gabby NGUYEN. patient is stable.
--- NOTE | 2018-12-21 19:47 | NUR ---
NURSE NOTES: Received report from PATRICK Cruz. Patient is in bed resting. Stable. Able to make needs known. No c/o of pain at this time. No signs of distress or SOB. Left upper arm PICC lie in tact and running fluids, VENEER REDRIER as ordered and TPN. Pickett intact and draining yellow urine. Bed is locked and in lowest position. Call light in easy reach. Will continue to monitor the patient.
[2018-12-21 20:00] VITALS: BP 172/90
[2018-12-21] MEDS: Fat Emulsion Iv 20% 216 ML in Tpn 1,560 ML IV SCH (20:00)
[2018-12-21] MEDS: Dyna-Hex 2% Top Sol 2oz TOPIC SCH (20:12)
[2018-12-21] MEDS ORDERED: NovoLOG Insulin Flexpen SUBQ SCH (21:00)
[2018-12-21] MEDS: Captopril 12.5mg tab ORAL PRN (21:35)
--- NOTE | 2018-12-21 21:36 | NUR ---
NURSE NOTES: Patient BP 172/90. Administered Captopril 12.5mg as ordered. Will continue to monitor.
--- NOTE | 2018-12-21 22:45 | NUR ---
NURSE NOTES: Patient ordered an increase dose of Cellceft. Patient expressed concern over the increased dose and wanted to know why. Patient stated she only wanted to take 4 of the 8 capsules. [facility], as there were no notes regarding the dose increase, but unable to reach GI. Reached out to Dr. Sotomayor for further clarification of the order. Made him aware of previous attempt to get clarification, and that the patient only wanted to take [address] Sotomayor instructed me to decrease the dose to her previous dose of 750mg. Charge nurse made aware.
[2018-12-21] MEDS: Ketorolac 30mg Inj IV PRN (22:51)
--- NOTE | 2018-12-21 22:55 | NUR ---
NURSE NOTES: Patient c/o nausea and expectorating spit in bucket. Administered Zofran 4mg as ordered. Will continue to monitor.
[2018-12-21] MEDS: Mycophenolate 250mg cap ORAL SCH (23:14)
--- NOTE | 2018-12-21 23:43 | NUR ---
NURSE NOTES: Spoke with Doris jimenes [facility] regarding the situation with the patient's medication. She said she will inform the pharmacy and they will follow up if they have anymore questions.
[2018-12-22] VITALS: BP 156/87
[2018-12-22] MEDS: NovoLOG Insulin Flexpen SUBQ SCH ×4 (00:12→18:47)
[2018-12-22 04:00] VITALS: BP 172/80
[2018-12-22] MEDS: Captopril 12.5mg tab ORAL PRN (04:18)
--- NOTE | 2018-12-22 04:20 | NUR ---
NURSE NOTES: Patient BP 172/80. Administered Captopril 12.5mg as ordered. Will continue to monitor.
[2018-12-22 05:20] LABS: BASOPHILS % (AUTO) 0.3 % (0.0-2.0); EOSINOPHILS % (AUTO) 1.5 % (0.0-3.0); HEMATOCRIT 30.5 % (37.0-47.0); HEMOGLOBIN 10.3 G/DL (12.0-16.0); MEAN CORPUSCULAR VOLUME 91 FL (80-99); MONOCYTES % (AUTO) 5.6 % (1.0-10.0); NEUTROPHILS % (AUTO) 84.6 % (45.0-75.0); PLATELET COUNT 232 K/UL (150-450); RED BLOOD COUNT 3.37 M/UL (4.20-5.40); WHITE BLOOD COUNT 11.2 K/UL (4.8-10.8)
[2018-12-22 05:24] LABS: ALANINE AMINOTRANSFERASE 17 U/L (12-78); ALBUMIN 1.8 G/DL (3.4-5.0); ALBUMIN/GLOBULIN RATIO 0.4 (1.0-2.7); ALKALINE PHOSPHATASE 115 U/L (46-116); ANION GAP 9 mmol/L (5-15); ASPARTATE AMINO TRANSFERASE 9 U/L (15-37); BILIRUBIN,TOTAL 0.4 MG/DL (0.2-1.0); BLOOD UREA NITROGEN 15 mg/dL (7-18); CALCIUM 8.6 MG/DL (8.5-10.1); CARBON DIOXIDE 28 MMOL/L (21-32); CHLORIDE 102 MMOL/L (98-107); CREATININE 0.9 MG/DL (0.55-1.30); POTASSIUM 2.9 MMOL/L (3.5-5.1); SODIUM 138 MMOL/L (136-145)
[2018-12-22] MEDS: Levothyroxine 125mcg tab ORAL SCH (05:55)
[2018-12-22] MEDS: D5 1/2NS w/KCl 40meq 1000ml 1,000 ML IV SCH ×2 (06:00→18:00)
[2018-12-22 06:11] LABS: PHOSPHORUS 1.7 MG/DL (2.5-4.9)
--- NOTE | 2018-12-22 06:17 | NUR ---
NURSE NOTES: Lab results showed patient's Potassium to be 2.9. seo analyst made aware. Spoke with Dr. Sotomayor over the phone. New orders put in by Dr Sotomayor with pharmacy.
[2018-12-22] MEDS: PCA shift volume MISC SCH (07:00)
[2018-12-22 08:00] VITALS: BP 155/86
--- NOTE | 2018-12-22 08:08 | NUR ---
HAND-OFF: Report given to PATRICK Ortiz.
--- NOTE | 2018-12-22 09:00 | NUR ---
NURSE NOTES: Patient in bed awake and able to verbalize needs. Stable. Denies pain or SOB. Patient encouraged to use call light for assistance, verbalized understanding. PICC line patent and running IVF, TPN, and MULTI OPERATION MACHINE OPERATOR as ordered. Surgical dressing clean, dry, and intact. Ileo bag draining brown output. F/C patent and draining yellow urine. Patient in bed in locked and lowest position with call light within reach. Will continue to monitor.
[2018-12-22] MEDS: Mycophenolate 250mg cap ORAL SCH ×2 (09:24→18:40)
[2018-12-22] MEDS ORDERED: Naloxone 0.4mg/ml Inj IVP PRN (09:41)
[2018-12-22] MEDS ORDERED: DiphenhydrAMINE 50mg/ml Inj IVP PRN (09:45)
[2018-12-22] MEDS ORDERED: Rate Change PCA 1 Each MISC PRN (09:45)
--- NOTE | 2018-12-22 09:53 | General Progress Note ---
Progress Note Progress Note Afebrile and states she is feeling much better, able to ambulate better. BP still elevated 170 and persistent tachycardia Abdomen still mildly distended, incision clean, stoma pink Urine 3800 Ileostomy 375 WBC 11,200 Hgb up 10.3 K 2.9 Phos 1.7 Mg 1.3 Albumin 1.8 (pre-op malnutrition) Imp: slowly resolving ileus persistent hypertension (no response to Captopril) Low K, Mg and P despite daily infusions Plan: Medicine consultation re HTN Supplement K, Mg and P continue TPN and NPO except po meds and ice chips continue Pickett additional day Lars Sotomayor MD Dec 22, 2018 09:53
[2018-12-22] MEDS: Ketorolac 30mg Inj IV PRN ×2 (10:43→21:08)
--- NOTE | 2018-12-22 10:50 | GI Progress Note ---
Assessment/Plan Problems: (1) Malfunctioning Kock Pouch (2) History of liver transplant ICD Codes: Z94.4 - Liver transplant status SNOMED: [id number] Status: unchanged Status Narrative Discussed with Dr. Dozier. Assessment/Plan Assessment/Plan 1. Malfunctioning Kock pouch continent ileostomy with increasing difficulty with intubation and increasing incontinence of stool and gas. 2. History of ulcerative colitis. 3. History of primary sclerosing cholangitis. 4. STATUS POST MULTIPLE ABDOMINAL OPERATIONS: 4.1. Proctocolectomy and Kock pouch continent ileostomy in 1978. 4.2. Total abdominal hysterectomy and bilateral salpingo-oophorectomy in 1983. 4.3. Appendectomy age 15. 4.4. Cholecystectomy in 1985. 4.5. Liver transplantation in 1999. 4.6. Laparotomy with revision of Kock pouch and repair of pouch cutaneous fistula in 2010. Status post exploratory laparotomy with lysis of the adhesions and continent pouch repair maintain NPO + IVF at this time, okay to start CLD when patient nausea improves continue zosyn monitor tacrolimus levels,increase the dose to 3 gm per day(spoke with pharmacy) add zofran prn, compazine prn trend LFTs endoscopy if necessary on TPN The patient was seen and examined at bedside and all new and available data was reviewed in the patients chart. I agree with the above findings, impression and plan. (Patient seen earlier today. Signature stamp does not reflect patient encounter time.). - Max Dozier MD Subjective Subjective feeling better Objective Last 24 Hour Vital Signs Date Time Temp Pulse Resp B/P (MAP) Pulse Ox O2 Delivery O2 Flow Rate FiO2 12/22/18 08:28 98 Nasal Cannula 2.0 28 12/22/18 08:00 17 12/22/18 08:00 99.2 101 17 155/86 (109) 96 12/22/18 04:18 172/80 12/22/18 04:00 16 12/22/18 04:00 99.7 100 16 172/80 (110) 96 12/22/18 00:00 16 12/22/18 00:00 98.4 102 16 156/87 (110) 96 12/21/18 21:35 172/90 12/21/18 21:00 Nasal Cannula 2.0 12/21/18 20:00 18 12/21/18 20:00 99.2 97 18 172/90 (117) 96 12/21/18 18:52 98 Nasal Cannula 2.0 28 12/21/18 16:00 18 12/21/18 16:00 98.0 104 18 167/91 (116) 95 12/21/18 12:13 180/91 12/21/18 12:00 16 12/21/18 12:00 97.9 100 16 180/91 (120) 94 Intake and Output 12/21/18 12/22/18 19:00 07:00 Intake Total 1383.750 ml 1166 ml Output Total 2700 ml 1475 ml Balance -1316.250 ml -309 ml IV Total 1383.750 ml 1166 ml Output Urine Total 2550 ml 1250 ml Other 150 ml 225 ml Laboratory Tests Test 12/22/18 04:50 White Blood Count 11.2 K/UL (4.8-10.8) H Red Blood Count 3.37 M/UL (4.20-5.40) L Hemoglobin 10.3 G/DL (12.0-16.0) L Hematocrit 30.5 % (37.0-47.0) L Mean Corpuscular Volume 91 FL (80-99) Mean Corpuscular Hemoglobin 30.6 PG (27.0-31.0) Mean Corpuscular Hemoglobin Concent 33.8 G/DL (32.0-36.0) Red Cell Distribution Width 12.0 % (11.6-14.8) Platelet Count 232 K/UL (150-450) Mean Platelet Volume 6.3 FL (6.5-10.1) L Neutrophils (%) (Auto) 84.6 % (45.0-75.0) H Lymphocytes (%) (Auto) 8.0 % (20.0-45.0) L Monocytes (%) (Auto) 5.6 % (1.0-10.0) Eosinophils (%) (Auto) 1.5 % (0.0-3.0) Basophils (%) (Auto) 0.3 % (0.0-2.0) Sodium Level 138 MMOL/L (136-145) Potassium Level 2.9 MMOL/L (3.5-5.1) L Chloride Level 102 MMOL/L (98-107) Carbon Dioxide Level 28 MMOL/L (21-32) Anion Gap 9 mmol/L (5-15) Blood Urea Nitrogen 15 mg/dL (7-18) Creatinine 0.9 MG/DL (0.55-1.30) Estimat Glomerular Filtration Rate > 60 mL/min (>60) Glucose Level 189 MG/DL (74-106) H Calcium Level 8.6 MG/DL (8.5-10.1) Phosphorus Level 1.7 MG/DL (2.5-4.9) L Magnesium Level 1.3 MG/DL (1.8-2.4) L Total Bilirubin 0.4 MG/DL (0.2-1.0) Aspartate Amino Transf (AST/SGOT) 9 U/L (15-37) L Alanine Aminotransferase (ALT/SGPT) 17 U/L (12-78) Alkaline Phosphatase 115 U/L (46-116) Total Protein 5.9 G/DL (6.4-8.2) L Albumin 1.8 G/DL (3.4-5.0) L Globulin 4.1 g/dL Albumin/Globulin Ratio 0.4 (1.0-2.7) L Height (Feet): 5 Height (Inches): 5.00 Weight (Pounds): 135 General Appearance: WD/WN, no apparent distress, alert Cardiovascular: normal rate Respiratory/Chest: normal breath sounds, no respiratory distress Abdominal Exam: normal bowel sounds, non tender, soft Extremities: non-tender Jeyson Luna NP Dec 22, 2018 10:50
[2018-12-22] MEDS ORDERED: Potassium Phosphate 20 MM in NS 275 ML IV ONE (11:00)
[2018-12-22] MEDS: Metoprolol 25mg tab ORAL SCH ×2 (11:31→20:13)
[2018-12-22 12:00] VITALS: BP 160/82
--- NOTE | 2018-12-22 13:55 | NUR ---
NURSE NOTES: Insulin sliding scale increased. New orders read back and carried out.
[2018-12-22 16:00] VITALS: BP 165/78
--- NOTE | 2018-12-22 17:26 | NUR ---
NURSE NOTES: Extra dose of clonidine given as ordered for bp 171/88, pulse 89. Patient is stable.
--- NOTE | 2018-12-22 17:31 | Cardiology Progress Note ---
Assessment/Plan Status Narrative 1. Malfunctioning Kock pouch continent ileostomy. 2. History of ulcerative colitis. 3. History of primary sclerosing cholangitis. 4. Status post multiple abdominal operations. 4.1. Appendectomy in 1964. 4.2. Proctocolectomy and Kock pouch in 1978. 4.3. Total abdominal hysterectomy and bilateral salpingo-oophorectomy 1983 4.4. Cholecystectomy in 1985. 4.5. Orthotopic liver transplantation in 1999. 4.6. Revision of Kock pouch and repair of fistula in 2010. HTN- New onset- ? due to Dilaudid, pain, nausea Tachycardia- ? Etio Assessment/Plan Clonidine ).1 mg Q6h PRN may need higher dose Metoprolol 25 mg BID Add Zestril 20 mg QD. IV NS 500 cc bolus to improve hydration. Consider change of pain meds. Will discuss with Dr. Sotomayor. Discussed with Patient and RN. Subjective Cardiovascular: Reports: no symptoms Respiratory: Reports: no symptoms; Denies: cough Gastrointestinal/Abdominal: Reports: abdominal pain Genitourinary: Reports: no symptoms Subjective H/A and nausea with Dilaudid. BP 160-170s, HR 100s. Objective Last 24 Hour Vital Signs Date Time Temp Pulse Resp B/P (MAP) Pulse Ox O2 Delivery O2 Flow Rate FiO2 12/22/18 17:22 171/88 12/22/18 16:08 165/78 12/22/18 16:00 99.2 83 18 165/78 (107) 97 12/22/18 15:40 18 12/22/18 12:00 18 12/22/18 12:00 98.1 97 18 160/82 (108) 96 12/22/18 11:31 97 160/82 12/22/18 09:00 Nasal Cannula 2.0 12/22/18 08:28 98 Nasal Cannula 2.0 28 12/22/18 08:00 17 12/22/18 08:00 99.2 101 17 155/86 (109) 96 12/22/18 04:18 172/80 12/22/18 04:00 16 12/22/18 04:00 99.7 100 16 172/80 (110) 96 12/22/18 00:00 16 12/22/18 00:00 98.4 102 16 156/87 (110) 96 12/21/18 21:35 172/90 12/21/18 21:00 Nasal Cannula 2.0 12/21/18 20:00 18 12/21/18 20:00 99.2 97 18 172/90 (117) 96 12/21/18 18:52 98 Nasal Cannula 2.0 28 Neck: non-tender Cardiovascular: normal rate, regular rhythm, no gallop/murmur Respiratory/Chest: lungs clear Abdomen: decreased bowel sounds, distended, guarding Extremities: normal range of motion, non-tender, normal inspection, no calf tenderness, no swelling Intake and Output 12/21/18 12/22/18 19:00 07:00 Intake Total 1383.750 ml 1166 ml Output Total 2700 ml 1475 ml Balance -1316.250 ml -309 ml IV Total 1383.750 ml 1166 ml Output Urine Total 2550 ml 1250 ml Other 150 ml 225 ml Laboratory Tests Test 12/22/18 04:50 White Blood Count 11.2 K/UL (4.8-10.8) H Red Blood Count 3.37 M/UL (4.20-5.40) L Hemoglobin 10.3 G/DL (12.0-16.0) L Hematocrit 30.5 % (37.0-47.0) L Mean Corpuscular Volume 91 FL (80-99) Mean Corpuscular Hemoglobin 30.6 PG (27.0-31.0) Mean Corpuscular Hemoglobin Concent 33.8 G/DL (32.0-36.0) Red Cell Distribution Width 12.0 % (11.6-14.8) Platelet Count 232 K/UL (150-450) Mean Platelet Volume 6.3 FL (6.5-10.1) L Neutrophils (%) (Auto) 84.6 % (45.0-75.0) H Lymphocytes (%) (Auto) 8.0 % (20.0-45.0) L Monocytes (%) (Auto) 5.6 % (1.0-10.0) Eosinophils (%) (Auto) 1.5 % (0.0-3.0) Basophils (%) (Auto) 0.3 % (0.0-2.0) Sodium Level 138 MMOL/L (136-145) Potassium Level 2.9 MMOL/L (3.5-5.1) L Chloride Level 102 MMOL/L (98-107) Carbon Dioxide Level 28 MMOL/L (21-32) Anion Gap 9 mmol/L (5-15) Blood Urea Nitrogen 15 mg/dL (7-18) Creatinine 0.9 MG/DL (0.55-1.30) Estimat Glomerular Filtration Rate > 60 mL/min (>60) Glucose Level 189 MG/DL (74-106) H Calcium Level 8.6 MG/DL (8.5-10.1) Phosphorus Level 1.7 MG/DL (2.5-4.9) L Magnesium Level 1.3 MG/DL (1.8-2.4) L Total Bilirubin 0.4 MG/DL (0.2-1.0) Aspartate Amino Transf (AST/SGOT) 9 U/L (15-37) L Alanine Aminotransferase (ALT/SGPT) 17 U/L (12-78) Alkaline Phosphatase 115 U/L (46-116) Total Protein 5.9 G/DL (6.4-8.2) L Albumin 1.8 G/DL (3.4-5.0) L Globulin 4.1 g/dL Albumin/Globulin Ratio 0.4 (1.0-2.7) L Micha Ziegler MD Dec 22, 2018 17:31
[2018-12-22] MEDS: oxyCODONE HCL/Acetaminophen 5/325mg ORAL PRN ×2 (18:57→23:19)
[2018-12-22] MEDS ORDERED: PCA shift volume MISC SCH (19:00)
--- NOTE | 2018-12-22 19:00 | NUR ---
NURSE NOTES: Patient ambulated x1 during shift. Patient verbalized that she will ambulate with PM nurse.
--- NOTE | 2018-12-22 19:30 | NUR ---
HAND-OFF: Report given to Dallin NGUYEN. Patient is stable.
--- NOTE | 2018-12-22 19:32 | NUR ---
NURSE NOTES: Patient in bed awake and oriented. VSS. No SOB noted. No pain or any abdominal discomfort. PICC line flushed with dressing clean and intact. Needs attended. Call light within reach. In stable condition.
[2018-12-22 20:00] VITALS: BP 126/76
[2018-12-22] MEDS: Dyna-Hex 2% Top Sol 2oz TOPIC SCH (20:13)
[2018-12-22] MEDS: Fat Emulsion Iv 20% 216 ML in Tpn 1,560 ML IV SCH (20:36)
[2018-12-23] VITALS (7 sets, daily range): BP systolic 115–167; BP diastolic 68–80
--- NOTE | 2018-12-23 00:12 | NUR ---
NURSE NOTES: Patients Ileostomy pouch leaking. Changed Ileo bag, patients gown and bed linen changed. PRN pain medications given for 6/10 abdominal pain. Report given to Izzy NGUYEN.
--- NOTE | 2018-12-23 00:40 | NUR ---
NURSE NOTES: Received a report from Dallin Montoya RN. Pt is in stable condition. AAOX4. Able to make needs known. On room air. No c/o pain/discomfort. PICC line 2 lumen on the L upper arm, is patent and intact. TPN is running. Yajaira ileostomy is noted. Pickett catheter is draining. Bed in lowest position. Bed alarm is on. Call light within reach. Will continue to monitor.
[2018-12-23] MEDS: Ketorolac 30mg Inj IV PRN ×2 (03:37→20:35)
[2018-12-23] MEDS: D5 1/2NS w/KCl 40meq 1000ml 1,000 ML IV SCH ×2 (04:04→20:13)
[2018-12-23 05:07] LABS: BASOPHILS % (AUTO) 0.6 % (0.0-2.0); EOSINOPHILS % (AUTO) 4.3 % (0.0-3.0); HEMATOCRIT 28.7 % (37.0-47.0); HEMOGLOBIN 9.7 G/DL (12.0-16.0); LYMPHOCYTES % (AUTO) 9.3 % (20.0-45.0); MEAN CORPUSCULAR VOLUME 92 FL (80-99); MONOCYTES % (AUTO) 7.5 % (1.0-10.0); NEUTROPHILS % (AUTO) 78.2 % (45.0-75.0); PLATELET COUNT 215 K/UL (150-450); RED BLOOD COUNT 3.14 M/UL (4.20-5.40); RED CELL DISTRIBUTION WIDTH 11.9 % (11.6-14.8); WHITE BLOOD COUNT 8.3 K/UL (4.8-10.8)
[2018-12-23 05:20] LABS: ANION GAP 10 mmol/L (5-15); BLOOD UREA NITROGEN 21 mg/dL (7-18); CALCIUM 9.3 MG/DL (8.5-10.1); CARBON DIOXIDE 26 MMOL/L (21-32); CHLORIDE 105 MMOL/L (98-107); CREATININE 0.9 MG/DL (0.55-1.30); PHOSPHORUS 2.5 MG/DL (2.5-4.9); POTASSIUM 3.3 MMOL/L (3.5-5.1); SODIUM 141 MMOL/L (136-145)
[2018-12-23] MEDS: Levothyroxine 125mcg tab ORAL SCH (06:07)
[2018-12-23] MEDS: NovoLOG Insulin Flexpen SUBQ SCH ×5 (06:08→23:36)
[2018-12-23] MEDS: oxyCODONE HCL/Acetaminophen 5/325mg ORAL PRN (06:37)
--- NOTE | 2018-12-23 07:20 | NUR ---
HAND-OFF: Report given to PATRICK Chappell.
--- NOTE | 2018-12-23 07:30 | NUR ---
NURSE NOTES: Received report from Izzy NGUYEN. Patient is awake and oriented, no acute distress noted, reporting pain but reports pain is decreasing following percocet administration. Pickett to gravity drainage. Ileostomy with external appliance in place, no leaking noted, dressing clean and dry. IVF and TPN running per order through MARILY PICC, PICC dressing clean and dry. Patient updated on plan of care for the day. Side rails upx2, bed low and locked, call light in reach. Will continue to monitor.
--- NOTE | 2018-12-23 08:21 | General Progress Note ---
Progress Note Progress Note AVSS BP better since seen by Dr. Ziegler and meds changed c/o pain - was having CANDY MAKER side effects so d/c'd and given percocet but not adequate relief Abdomen still distended, incision clean, stoma pink Urine 2715 Ileostomy 595 WBC 8300 Hgb 9.7 K 3.3 Mg 1.5 Imp. slowly resolving ileus persistent post-op pain Plan; continue npo, TPN change Percocet to 10/325 q4h prn d/c urinary morales WOCN teaching for new ileostomy Lars Sotomayor MD Dec 23, 2018 08:21
--- NOTE | 2018-12-23 08:37 | General Progress Note ---
Assessment/Plan Status: unchanged Assessment/Plan: (1) Malfunctioning Kock Pouch (2) History of liver transplant ICD Codes: Z94.4 - Liver transplant status SNOMED: [id number] Status: unchanged Status Narrative Discussed with Dr. Dozier. Assessment/Plan 1. Malfunctioning Kock pouch continent ileostomy with increasing difficulty with intubation and increasing incontinence of stool and gas. 2. History of ulcerative colitis. 3. History of primary sclerosing cholangitis. 4. STATUS POST MULTIPLE ABDOMINAL OPERATIONS: 4.1. Proctocolectomy and Kock pouch continent ileostomy in 1978. 4.2. Total abdominal hysterectomy and bilateral salpingo-oophorectomy in 1983. 4.3. Appendectomy age 15. 4.4. Cholecystectomy in 1985. 4.5. Liver transplantation in 1999. 4.6. Laparotomy with revision of Kock pouch and repair of pouch cutaneous fistula in 2010. Status post exploratory laparotomy with lysis of the adhesions and continent pouch repair maintain NPO + IVF at this time, continue zosyn monitor tacrolimus levels,increase the dose to 3 gm per day(spoke with pharmacy) add zofran prn, compazine prn trend LFTs endoscopy if necessary on TPN add cellcept 750 BID monitor for lytes add simethicone Subjective Allergies: Coded Allergies: CODEINE (Verified Allergy, Severe, 12/17/18) Face contractions HYDROMORPHONE (Verified Allergy, Severe, Itching, 12/17/18) Itching whole body METOCLOPRAMIDE (Verified Allergy, Severe, 12/17/18) Face contractions MORPHINE (Verified Allergy, Severe, Shortness of Breath, 12/17/18) SULFA (SULFONAMIDE ANTIBIOTICS) (Verified Allergy, Severe, 12/17/18) Face contractions Subjective min abd pain c/o nausea feeling better Objective Last 24 Hour Vital Signs Date Time Temp Pulse Resp B/P (MAP) Pulse Ox O2 Delivery O2 Flow Rate FiO2 12/23/18 07:07 98.0 12/23/18 04:00 98.0 74 18 121/68 (85) 96 12/23/18 00:00 98.1 85 18 115/69 (84) 98 12/22/18 21:00 Nasal Cannula 2.0 12/22/18 20:13 83 171/88 12/22/18 20:00 96 Nasal Cannula 2.0 28 12/22/18 20:00 98.4 83 18 126/76 (93) 98 12/22/18 17:22 171/88 12/22/18 16:08 165/78 12/22/18 16:00 99.2 83 18 165/78 (107) 97 12/22/18 15:40 18 12/22/18 12:00 18 12/22/18 12:00 98.1 97 18 160/82 (108) 96 12/22/18 11:31 97 160/82 12/22/18 09:00 Nasal Cannula 2.0 Intake and Output 12/22/18 12/23/18 19:00 07:00 Intake Total 889 ml 1639 ml Output Total 2050 ml 1270 ml Balance -1161 ml 369 ml IV Total 889 ml 1639 ml Output Urine Total 1825 ml 900 ml Other 225 ml 370 ml Laboratory Tests 12/23/18 04:50: White Blood Count 8.3, Red Blood Count 3.14L, Hemoglobin 9.7L, Hematocrit 28.7L , Mean Corpuscular Volume 92, Mean Corpuscular Hemoglobin 30.8, Mean Corpuscular Hemoglobin Concent 33.6, Red Cell Distribution Width 11.9, Platelet Count 215, Mean Platelet Volume 6.1L, Neutrophils (%) (Auto) 78.2H, Lymphocytes (%) (Auto) 9.3L, Monocytes (%) (Auto) 7.5, Eosinophils (%) (Auto) 4.3H, Basophils (%) (Auto) 0.6, Sodium Level 141, Potassium Level 3.3L, Chloride Level 105, Carbon Dioxide Level 26, Anion Gap 10, Blood Urea Nitrogen 21H, Creatinine 0.9, Estimat Glomerular Filtration Rate > 60, Glucose Level 184H, Calcium Level 9.3, Phosphorus Level 2.5, Magnesium Level 1.5L Height (Feet): 5 Height (Inches): 5.00 Weight (Pounds): 135 General Appearance: alert EENT: PERRL/EOMI Neck: supple Cardiovascular: normal rate Respiratory/Chest: decreased breath sounds Abdomen: soft, decreased bowel sounds, distended Extremities: non-tender Max Dozier MD Dec 23, 2018 08:37
[2018-12-23] MEDS: Mycophenolate 250mg cap ORAL SCH ×2 (08:50→17:20)
[2018-12-23] MEDS: Metoprolol 25mg tab ORAL SCH ×2 (08:51→20:11)
[2018-12-23] MEDS: HYDROmorphone 1mg/ml Carpuject SUBQ PRN (08:52)
--- NOTE | 2018-12-23 08:55 | NUR ---
NURSE NOTES: Pickett catheter removed per MD order. Patient tolerated well. Patient educated to inform RN when ready to void. Will continue to monitor.
[2018-12-23] MEDS ORDERED: Lisinopril 10mg tab ORAL SCH (09:00)
--- NOTE | 2018-12-23 10:40 | NUR ---
CASE MANAGEMENT:REVIEW 12/20/18 SI: POD #2 MALFUNCTIONING KOCK POUCH CONTINENT ILEOSTOMY S/P RESECTION,ENTEROENTEROSTOMY AND CREATION OF SUKHI ILEOSTOMY 99.5 92 16 182/92 95% on 2L/NC WBC+13.9 MAG-0.9 IS: TPN/IL @93/HR IV MAG SULFATE Q1HRS X2 PRE SCHOOL MANAGER DILAUDID IV ZOSYN Q6HRS PROGRAF PO QHS CELLCEPT PO Q12 IVF@100/HR : MED/SURG STATUS 3 [facility] 12/21/18 SI: POD #3 MALFUNCTIONING KOCK POUCH CONTINENT ILEOSTOMY S/P RESECTION,ENTEROENTEROSTOMY AND CREATION OF SUKHI ILEOSTOMY 98.0 104 18 167/91 95% ON 2L/NC K-3.1 PHOS-1.5 MAG-1.5 IS: TPN/IL @93/HR IV MAG SULFATE Q1HRS X2 BAGS IV K-PHOS X1 PRE SCHOOL MANAGER DILAUDID IV ZOSYN Q6HRS PROGRAF PO QHS CELLCEPT PO Q12 IVF@100/HR : MED/SURG STATUS 3 [facility] 12/22/18 SI: POD #4 MALFUNCTIONING KOCK POUCH CONTINENT ILEOSTOMY S/P RESECTION,ENTEROENTEROSTOMY AND CREATION OF SUKHI ILEOSTOMY 99.7 102 16 172/80 IS: TPN/IL @93/HR IV MAG SULFATE Q1HRS X2 BAGS IV K-PHOS X1 PRE SCHOOL MANAGER DILAUDID IV ZOSYN Q6HRS PROGRAF PO QHS CELLCEPT PO Q12 IVF@100/HR NPO CLONIDINE SL X1 : MED/SURG STATUS 3 [facility] 12/23/18 SI: POD #5 MALFUNCTIONING KOCK POUCH CONTINENT ILEOSTOMY S/P RESECTION,ENTEROENTEROSTOMY AND CREATION OF SUKHI ILEOSTOMY 99.2 86 18 157/78 98% ON RA H/H-9.7/28.7 K-3.3 MAG-1.5 IS: LISINOPRIL PO QD CELLCEPT PO BID IV MAG SULFATE Q1HRS X3 IVF@75/HR LOPRESSOR PO Q12 TPN/IL @ 74/HR IV TORADOL Q6HRS PRN PROTONIX PO QD PROGRAF PO BID SYNTHROID PO QD : MED/SURG STATUS 3 [facility] DCP: FROM HOME
--- NOTE | 2018-12-23 13:02 | NUR ---
NURSE NOTES: Patient voided 100mL of clear, yellow urine without difficulty.
--- NOTE | 2018-12-23 13:11 | NUR ---
*-*INSURANCE *-* ALL CLINICALS AND REVIEWS HAVE BEEN FAXED TO: [facility]#[phone]
--- NOTE | 2018-12-23 14:41 | NUR ---
NURSE NOTES: Patient seen by Dr. Ziegler. ordered to take a one time BP and HR, BP: 149/75 and HR 77. Reported VS to MD. ordered to increase patient's lisinopril to 20mg PO bid to start this evening. Order entered, will carry out.
--- NOTE | 2018-12-23 14:44 | Cardiology Progress Note ---
Assessment/Plan Status Narrative 1. Malfunctioning Kock pouch continent ileostomy. 2. History of ulcerative colitis. 3. History of primary sclerosing cholangitis. 4. Status post multiple abdominal operations. 4.1. Appendectomy in 1964. 4.2. Proctocolectomy and Kock pouch in 1978. 4.3. Total abdominal hysterectomy and bilateral salpingo-oophorectomy 1983 4.4. Cholecystectomy in 1985. 4.5. Orthotopic liver transplantation in 1999. 4.6. Revision of Kock pouch and repair of fistula in 2010. HTN- New onset- ? due to Dilaudid, pain, nausea- improving Tachycardia- improved with IV Fluids and Beta Blockers. Assessment/Plan Clonidine ).1 mg Q6h PRN may need higher dose Metoprolol 25 mg BID Add Zestril 20 mg BID. IV at 75 cc/h until tomorrow then will educe pain management.\ Plan 2D Echo in AM to assess LV WM and LV wall thickness- r/o Hypertensive heart discussed with Dr. Sotomayor. Discussed with Patient and RN. Subjective Cardiovascular: Reports: no symptoms Respiratory: Reports: no symptoms Gastrointestinal/Abdominal: Reports: abdomen distended, abdominal pain Genitourinary: Reports: no symptoms Subjective [employer] ENG[employer]ER stopped, on Percocet and SQ Dilaudid. Feeling better On Lisinopril and Metoprolol. Objective Last 24 Hour Vital Signs Date Time Temp Pulse Resp B/P (MAP) Pulse Ox O2 Delivery O2 Flow Rate FiO2 12/23/18 12:00 99.0 76 19 146/73 (97) 99 12/23/18 09:00 Room Air 12/23/18 08:51 86 157/78 12/23/18 08:50 157/78 12/23/18 08:00 99.2 86 18 157/78 (104) 98 12/23/18 07:07 98.0 12/23/18 04:00 98.0 74 18 121/68 (85) 96 12/23/18 00:00 98.1 85 18 115/69 (84) 98 12/22/18 21:00 Nasal Cannula 2.0 12/22/18 20:13 83 171/88 12/22/18 20:00 96 Nasal Cannula 2.0 28 12/22/18 20:00 98.4 83 18 126/76 (93) 98 12/22/18 17:22 171/88 12/22/18 16:08 165/78 12/22/18 16:00 99.2 83 18 165/78 (107) 97 12/22/18 15:40 18 Cardiovascular: normal rate, regular rhythm, no gallop/murmur Respiratory/Chest: lungs clear Abdomen: soft, hypoactive bowel sounds, distended, guarding Extremities: non-tender, normal inspection, no calf tenderness, no swelling Intake and Output 12/22/18 12/23/18 19:00 07:00 Intake Total 889 ml 1788 ml Output Total 2050 ml 1270 ml Balance -1161 ml 518 ml IV Total 889 ml 1788 ml Output Urine Total 1825 ml 900 ml Other 225 ml 370 ml Laboratory Tests Test 12/23/18 04:50 White Blood Count 8.3 K/UL (4.8-10.8) Red Blood Count 3.14 M/UL (4.20-5.40) L Hemoglobin 9.7 G/DL (12.0-16.0) L Hematocrit 28.7 % (37.0-47.0) L Mean Corpuscular Volume 92 FL (80-99) Mean Corpuscular Hemoglobin 30.8 PG (27.0-31.0) Mean Corpuscular Hemoglobin Concent 33.6 G/DL (32.0-36.0) Red Cell Distribution Width 11.9 % (11.6-14.8) Platelet Count 215 K/UL (150-450) Mean Platelet Volume 6.1 FL (6.5-10.1) L Neutrophils (%) (Auto) 78.2 % (45.0-75.0) H Lymphocytes (%) (Auto) 9.3 % (20.0-45.0) L Monocytes (%) (Auto) 7.5 % (1.0-10.0) Eosinophils (%) (Auto) 4.3 % (0.0-3.0) H Basophils (%) (Auto) 0.6 % (0.0-2.0) Sodium Level 141 MMOL/L (136-145) Potassium Level 3.3 MMOL/L (3.5-5.1) L Chloride Level 105 MMOL/L (98-107) Carbon Dioxide Level 26 MMOL/L (21-32) Anion Gap 10 mmol/L (5-15) Blood Urea Nitrogen 21 mg/dL (7-18) H Creatinine 0.9 MG/DL (0.55-1.30) Estimat Glomerular Filtration Rate > 60 mL/min (>60) Glucose Level 184 MG/DL (74-106) H Calcium Level 9.3 MG/DL (8.5-10.1) Phosphorus Level 2.5 MG/DL (2.5-4.9) Magnesium Level 1.5 MG/DL (1.8-2.4) Micha Jay MD Dec 23, 2018 14:44
--- NOTE | 2018-12-23 16:45 | Consultation ---
DATE OF CONSULTATION: 12/22/2018 CARDIOLOGY CONSULTATION REASON FOR CONSULTATION: Hypertension. HISTORY OF PRESENT ILLNESS: The patient is a 68-year-old white female, with history of multiple medical problems, who was admitted for revision of a Kock pouch and conversion to a continent ileostomy. The patient did well through surgery, but postoperatively she has had hypertension and tachycardia up to 105 with blood pressure in the 150-170 range. The patient has no history of hypertension in the past and denies history of heart disease. PAST MEDICAL HISTORY: Significant for history of ulcerative colitis and history of primary sclerosing cholangitis requiring liver transplant in the year 1999. She also has had multiple abdominal surgeries related to her ulcerative colitis. She underwent a proctocolectomy and a Kock pouch placement in 1978 with a total abdominal hysterectomy and bilateral salpingo-oophorectomy in 1983 and cholecystectomy in 1985. She also had revision of the pouch with repair of fistula in 2010. MEDICATIONS: The patient has been given captopril sublingually. She is on CellCept, INSPECTOR FIREARMS Dilaudid, magnesium, potassium phosphate and the TPN intravenously, Toradol p.r.n., Zofran p.r.n., Compazine p.r.n., Protonix 40 mg daily, Prograf 1 mg daily, Ativan p.r.n., levothyroxine 125 mcg daily, Tylenol p.r.n., and trazodone p.r.n. REVIEW OF SYSTEMS: Essentially as noted above. The patient denies chest pain, palpitations, PND, orthopnea, or lower extremity edema. She has had some discharge from her ileostomy, but is still NPO. She has ambulated since surgery and has been on DVT prophylaxis with compression stockings. PHYSICAL EXAMINATION: VITAL SIGNS: Blood pressure was 165/78 with a heart rate of 97. Temperature was 100.2. HEENT: Unremarkable. NECK: Supple. LUNGS: Without rales or wheezes. CARDIAC: S1 and S2 are normal without S3 or S4. Jugular venous pressure is normal. ABDOMEN: Soft and tender diffusely with distention. Bowel sounds are hyperactive. EXTREMITIES: Without cyanosis, clubbing, or edema. There is no calf tenderness noted. DIAGNOSTIC DATA: EKG showed normal sinus rhythm, it was within normal limits. LABORATORY DATA: Reviewed and significant for potassium level of 2.9 and a glucose of 189 while on TPN. WBC was 11.2 and hemoglobin 10.3. IMPRESSION: 1. Hypertension postoperatively, etiology unclear, may be due to INSPECTOR FIREARMS and pain medications versus postoperative pain and anxiety. 2. Tachycardia may be partially due to pain and some degree of dehydration. 3. Status post revision and conversion of a Kock pouch to ileostomy. 4. History of primary sclerosing cholangitis status post liver transplant. PLAN OF SUGGESTION: The patient will be started on lisinopril 20 mg daily and we will increase as necessary. We will use clonidine sublingually 0.1 mg p.r.n. for systolic blood pressure greater than 150 and continue metoprolol 25 mg b.i.d. IV fluids have been increased to 75 mL an hour to improve hydration. We will increase medications as needed. The patient has been started on her other medications and we will change as the patient's condition evolves and she is able to take full p.o. intake. IV fluids will be adjusted as necessary. Since the patient has no symptoms and her EKG has been normal, we will not initiate any workup at this time and monitor her progress. Discussed with Dr. Lars Sotomayor, who will discontinue INSPECTOR FIREARMS and start the patient on oral medications for pain control. Dr. Sotomayor, thank you for allowing me to participate in the care of this patient and I will be happy to follow with you as necessary. Micha Ziegler M.D. DR: /ALICE JOB#: [id number] CC: Micha Ziegler M.D.; Fax#: [phone] The Chart
[2018-12-23] MEDS: Lisinopril 20mg tab ORAL SCH (17:20)
--- NOTE | 2018-12-23 18:30 | NUR ---
NURSE NOTES: Total ileo output for my shift: 200mL Total urine output: 1150mL External ileostomy appliance holding up well, changed by Fabien ABREU, patient educated on ileostomy care. Patient's pain managed.
--- NOTE | 2018-12-23 19:30 | NUR ---
HAND-OFF: Report given to Dallin NGUYEN. Patient is in stable condition.
[2018-12-23] MEDS: Dyna-Hex 2% Top Sol 2oz TOPIC SCH (20:11)
[2018-12-23] MEDS: Fat Emulsion Iv 20% 216 ML in Tpn 1,560 ML IV SCH (20:14)
--- NOTE | 2018-12-23 22:55 | NUR ---
NURSE NOTES: Patient in bed awake and oriented. VSS. No SOB noted. Ileo Bag clean and intact. No abdominal pain noted. PICC line flushed with clean dressing. Needs attended. Due meds given. In stable condition.
[2018-12-24] VITALS (7 sets, daily range): BP systolic 114–165; BP diastolic 58–84
[2018-12-24] MEDS: Ketorolac 30mg Inj IV PRN ×2 (03:57→20:53)
[2018-12-24] MEDS: NovoLOG Insulin Flexpen SUBQ SCH ×3 (05:21→17:21)
[2018-12-24] MEDS: Levothyroxine 125mcg tab ORAL SCH (05:23)
[2018-12-24 06:18] LABS: BASOPHILS % (AUTO) 0.6 % (0.0-2.0); EOSINOPHILS % (AUTO) 5.4 % (0.0-3.0); HEMATOCRIT 26.7 % (37.0-47.0); HEMOGLOBIN 8.9 G/DL (12.0-16.0); LYMPHOCYTES % (AUTO) 11.1 % (20.0-45.0); MEAN CORPUSCULAR VOLUME 93 FL (80-99); MONOCYTES % (AUTO) 7.8 % (1.0-10.0); PLATELET COUNT 232 K/UL (150-450); RED BLOOD COUNT 2.87 M/UL (4.20-5.40); RED CELL DISTRIBUTION WIDTH 11.9 % (11.6-14.8); WHITE BLOOD COUNT 7.6 K/UL (4.8-10.8)
[2018-12-24 06:28] LABS: ALANINE AMINOTRANSFERASE 23 U/L (12-78); ALBUMIN 1.6 G/DL (3.4-5.0); ALBUMIN/GLOBULIN RATIO 0.4 (1.0-2.7); ALKALINE PHOSPHATASE 218 U/L (46-116); ANION GAP 8 mmol/L (5-15); ASPARTATE AMINO TRANSFERASE 15 U/L (15-37); BILIRUBIN,TOTAL 0.3 MG/DL (0.2-1.0); BLOOD UREA NITROGEN 24 mg/dL (7-18); CALCIUM 9.3 MG/DL (8.5-10.1); CARBON DIOXIDE 25 MMOL/L (21-32); CHLORIDE 105 MMOL/L (98-107); CREATININE 0.9 MG/DL (0.55-1.30); POTASSIUM 3.8 MMOL/L (3.5-5.1); SODIUM 138 MMOL/L (136-145)
--- NOTE | 2018-12-24 07:29 | General Progress Note ---
Assessment/Plan Status: unchanged Assessment/Plan: (1) Malfunctioning Kock Pouch (2) History of liver transplant ICD Codes: Z94.4 - Liver transplant status SNOMED: [id number] Status: unchanged Status Narrative Discussed with Dr. Dozier. Assessment/Plan 1. Malfunctioning Kock pouch continent ileostomy with increasing difficulty with intubation and increasing incontinence of stool and gas. 2. History of ulcerative colitis. 3. History of primary sclerosing cholangitis. 4. STATUS POST MULTIPLE ABDOMINAL OPERATIONS: 4.1. Proctocolectomy and Kock pouch continent ileostomy in 1978. 4.2. Total abdominal hysterectomy and bilateral salpingo-oophorectomy in 1983. 4.3. Appendectomy age 15. 4.4. Cholecystectomy in 1985. 4.5. Liver transplantation in 1999. 4.6. Laparotomy with revision of Kock pouch and repair of pouch cutaneous fistula in 2010. Status post exploratory laparotomy with lysis of the adhesions and continent pouch repair maintain NPO + IVF >>> CLD if ok with surg continue zosyn monitor tacrolimus levels,increase the dose to 3 gm per day(spoke with pharmacy) zofran prn, compazine prn trend LFTs endoscopy if necessary on TPN cellcept 750 BID monitor for lytes add simethicone Subjective ROS Limited/Unobtainable: Yes Allergies: Coded Allergies: CODEINE (Verified Allergy, Severe, 12/17/18) Face contractions HYDROMORPHONE (Verified Allergy, Severe, Itching, 12/17/18) Itching whole body METOCLOPRAMIDE (Verified Allergy, Severe, 12/17/18) Face contractions MORPHINE (Verified Allergy, Severe, Shortness of Breath, 12/17/18) SULFA (SULFONAMIDE ANTIBIOTICS) (Verified Allergy, Severe, 12/17/18) Face contractions Subjective min abd pain feeling better Objective Last 24 Hour Vital Signs Date Time Temp Pulse Resp B/P (MAP) Pulse Ox O2 Delivery O2 Flow Rate FiO2 12/24/18 04:00 98.2 75 17 140/69 (92) 96 12/24/18 00:00 97.9 66 20 114/58 (76) 96 12/23/18 21:16 97 Nasal Cannula 2.0 28 12/23/18 21:00 Room Air 12/23/18 20:11 79 141/72 12/23/18 20:00 98.7 78 18 141/72 (95) 97 12/23/18 19:13 163/80 12/23/18 19:04 86 163/80 (107) 12/23/18 17:20 167/79 12/23/18 17:00 99.8 83 18 167/79 (108) 96 12/23/18 12:00 99.0 76 19 146/73 (97) 99 12/23/18 09:00 Room Air 12/23/18 08:51 86 157/78 12/23/18 08:50 157/78 12/23/18 08:00 99.2 86 18 157/78 (104) 98 Intake and Output 12/23/18 12/24/18 18:59 06:59 Intake Total 2088 ml 1416 ml Output Total 1350 ml 1000 ml Balance 738 ml 416 ml IV Total 2088 ml 1416 ml Output Urine Total 1150 ml 600 ml Other 200 ml 400 ml Laboratory Tests 12/24/18 05:00: White Blood Count 7.6, Red Blood Count 2.87L, Hemoglobin 8.9L, Hematocrit 26.7L , Mean Corpuscular Volume 93, Mean Corpuscular Hemoglobin 30.9, Mean Corpuscular Hemoglobin Concent 33.2, Red Cell Distribution Width 11.9, Platelet Count 232, Mean Platelet Volume 6.6, Neutrophils (%) (Auto) 75.0, Lymphocytes (% ) (Auto) 11.1L, Monocytes (%) (Auto) 7.8, Eosinophils (%) (Auto) 5.4H, Basophils (%) (Auto) 0.6, Sodium Level 138, Potassium Level 3.8, Chloride Level 105, Carbon Dioxide Level 25, Anion Gap 8, Blood Urea Nitrogen 24H, Creatinine 0.9, Estimat Glomerular Filtration Rate > 60, Glucose Level 164H, Calcium Level 9.3, Magnesium Level 1.6L, Total Bilirubin 0.3, Aspartate Amino Transf (AST/SGOT ) 15, Alanine Aminotransferase (ALT/SGPT) 23, Alkaline Phosphatase 218H, Total Protein 5.6L, Albumin 1.6L, Globulin 4.0, Albumin/Globulin Ratio 0.4L Height (Feet): 5 Height (Inches): 5.00 Weight (Pounds): 136 General Appearance: alert EENT: normal ENT inspection Neck: supple Cardiovascular: normal rate Respiratory/Chest: lungs clear Abdomen: soft, other - ileostomy bag Max Dozier MD Dec 24, 2018 07:29
--- NOTE | 2018-12-24 07:30 | NUR ---
NURSE NOTES: AWAKE/ALERT. PAIN SCALE 6/10. ILEOSTOMY BAG IN PLACE DRAINING GREENISH OUTPUT. IN NO ACUTE DISTRESS.
[2018-12-24] MEDS: D5 1/2NS w/KCl 40meq 1000ml 1,000 ML IV SCH ×2 (07:59→11:52)
[2018-12-24] MEDS ORDERED: Lisinopril 20mg tab ORAL SCH (09:00)
--- NOTE | 2018-12-24 09:15 | NUR ---
NURSE NOTES: AMBULATED OUT IN THE BAKER TOLERATED.
[2018-12-24] MEDS: Lisinopril 20mg tab ORAL SCH ×2 (09:31→18:06)
[2018-12-24] MEDS: Mycophenolate 250mg cap ORAL SCH ×2 (09:31→18:07)
[2018-12-24] MEDS: Metoprolol Succinate XL 25mg tab ORAL SCH (09:32)
--- NOTE | 2018-12-24 11:46 | NUR ---
RD ASSESSMENT & RECOMMENDATIONS SEE CARE ACTIVITY FOR COMPLETE ASSESSMENT DAILY ESTIMATED NEEDS: Needs based on Surgery 61kg 25-30 kcals/kg 6053-6726 total kcals 1-2 g protein/kg 61-122 g total protein 25-30 mL/kg 1403-3288 total fluid mLs NUTRITION DIAGNOSIS: Altered GI fxn r/t h/o UC and malfunctioning kock pouch as evidenced by pt is now s/p kock pouch takedown w/ creation of Yajaira ileo, CLD initiated, remains on TPN (updated) CURRENT DIET: CLEAR LIQUID DIET PO DIET RECOMMENDATIONS: Advance diet per MD -> LOW FIBER/LOW RESIDUE PARENTERAL NUTRITION RECOMMENDATIONS: D/AA Rate: 65 IL Rate: 9 Total Rate: 74 Volume: 1776 % Dextrose: 18 % AA: 5.5 Energy (kcals/kg): 1730 Protein (g/kg protein): 86 Nonprotein KCALS: 1386 GIR (mg CHO/kg/min): 3.2 % Fat KCALS: 25 NCP: N Ratio: 101:1 TPN Comment: - Maintain current TPN: D18% + AA 5.5% @65ml/hr + 20% IL @9ml/hr -> total of 74ml/hr, all 3:1 - TPN at goal meets 100% est kcal/prot needs (28 kcal/kg and 1.4g prot/kg) - Monitor lytes, BG, and LFT's w/ TPN. ADDITIONAL RECOMMENDATIONS: 1) Obtain a standing weight as pt is able to ambulate in halls 2) Monitor lytes and BG daily w/ TPN Replete as needed 3) LFT's weekly 4) Advance diet per MD 5) Monitor for diet advancement and PO tolerance, ability to taper down TPN
--- NOTE | 2018-12-24 12:37 | General Progress Note ---
Progress Note Progress Note AVSS Feeling better Abdomen is more distended Urine 1750 Ileostomy 600cc BUN 24 Cr 0.9 Mg 1.6 Has been seen by [facility] for new ileostomy care Imp. distention - R/O partial SBO Plan: npo except po meds STAT KUB XRay Infuse Mg f/u labs Lars Sotomayor MD Dec 24, 2018 12:36
--- NOTE | 2018-12-24 13:40 | NUR ---
RADIOLOGY DEPT., ABDOMEN X-RAY DONE.-P.DYE
--- NOTE | 2018-12-24 14:47 | Diagnostic Imaging Report ---
Indication: Reason For Exam: ABD DIST Technique: One view of the abdomen Comparison: none Findings: There are lower midline skin reggie. Numerous surgical clips and reggie are seen throughout the abdomen. Prominent but not frankly dilated gas-filled small bowel loops are noted. Impression: Postsurgical changes, as described No definite acute process
--- NOTE | 2018-12-24 14:54 | NUR ---
*-*INSURANCE *-* UPDATED CLINICALS HAVE BEEN FAXED TO: [facility]#[phone]
--- NOTE | 2018-12-24 14:56 | Cardiology Report ---
APPROVED REPORT EXAM: Two-dimensional and M-mode echocardiogram with Doppler and color Doppler. INDICATION Hypertension/HCVD M-Mode DIMENSIONS IVSd1.0 (0.7-1.1cm)Left Atrium (MM)4.2 (1.6-4.0cm) LVDd4.7 (3.5-5.6cm)Aortic Root2.6 (2.0-3.7cm) PWd1.0 (0.7-1.1cm)Aortic Cusp Exc.1.6 (1.5-2.0cm) IVSs1.7 cm LVDs2.8 (2.5-4.0cm) PWs1.5 cm Normal left ventricular chamber size, systolic function and wall motion. Left ventricular ejection fraction estimated to be 65%. No left ventricular hypertrophy. No evidence of pericardial effusion. Mild left atrial enlargement. Right cardiac chamber sizes are within normal limits. Focal aortic valve sclerosis with adequate cusp excursion. Thickened mitral valve leaflets with normal excursion. Mitral annulus and aortic root calcification. Pulmonic valve not well visualized. Normal tricuspid valve structure. IVC at normal size with physiologic collapse. A color flow and spectral Doppler study was performed and revealed: Trace aortic regurgitation. Moderate mitral regurgitation. Mitral diastolic velocities suggest reduced left ventricular relaxation c/w mild LV diastolic dysfunction (Grade I). Mild tricuspid regurgitation. Tricuspid systolic velocities suggests peak right ventricular systolic pressure of 40 mmHg, consistent with mild pulmonary hypertension. No pulmonic regurgitation present.
--- NOTE | 2018-12-24 15:09 | NUR ---
NURSE NOTES: DR Mindy PRIEST CALLED RE ABDOMINAL XRAY REPORT,LEFTMESSAGE TO RETURN CALL.
--- NOTE | 2018-12-24 15:41 | Cardiology Progress Note ---
Assessment/Plan Status Narrative 1. Malfunctioning Kock pouch continent ileostomy. 2. History of ulcerative colitis. 3. History of primary sclerosing cholangitis. 4. Status post multiple abdominal operations. 4.1. Appendectomy in 1964. 4.2. Proctocolectomy and Kock pouch in 1978. 4.3. Total abdominal hysterectomy and bilateral salpingo-oophorectomy 1983 4.4. Cholecystectomy in 1985. 4.5. Orthotopic liver transplantation in 1999. 4.6. Revision of Kock pouch and repair of fistula in 2010. HTN- New onset- ? due to Dilaudid, pain, nausea- improving Tachycardia- improved with IV Fluids and Beta Blockers. Echo done- shows borderline LVH with mild diastolic dysfunction- c/w HTN heart Dz Assessment/Plan Clonidine ).1 mg Q6h PRN Metoprolol reduced to 25 mg QD Zestril 20 mg BID. Based on Echo and her clinical picture, she will need some form of meds for HTN as out-patient. Will adjust meds as her condition improves. IV at 25 cc/h pain management.\ discussed with Dr. Sotomayor. Discussed with Patient and RN. Subjective Cardiovascular: Reports: no symptoms Respiratory: Reports: no symptoms Gastrointestinal/Abdominal: Reports: abdomen distended, abdominal pain Genitourinary: Reports: no symptoms Subjective on Percocet and SQ Dilaudid. Feeling better. today is a good day. On Lisinopril and Metoprolol. Has had distention. KUB done Echo done Objective Last 24 Hour Vital Signs Date Time Temp Pulse Resp B/P (MAP) Pulse Ox O2 Delivery O2 Flow Rate FiO2 12/24/18 13:08 98.2 12/24/18 12:00 98.0 76 18 148/67 (94) 98 12/24/18 09:32 78 145/72 12/24/18 09:31 145/72 12/24/18 09:21 Room Air 12/24/18 08:00 98.0 78 18 145/72 (96) 94 12/24/18 04:00 98.2 75 17 140/69 (92) 96 12/24/18 00:00 97.9 66 20 114/58 (76) 96 12/23/18 21:16 97 Nasal Cannula 2.0 28 12/23/18 21:00 Room Air 12/23/18 20:11 79 141/72 9/3/19 20:00 98.7 78 18 141/72 (95) 97 12/23/18 19:13 163/80 12/23/18 19:04 86 163/80 (107) 12/23/18 17:20 167/79 12/23/18 17:00 99.8 83 18 167/79 (108) 96 Cardiovascular: normal rate, regular rhythm, no gallop/murmur Respiratory/Chest: lungs clear, normal breath sounds Abdomen: normal bowel sounds, soft, distended Extremities: non-tender, normal inspection, no calf tenderness, no swelling Intake and Output 12/23/18 12/24/18 19:00 07:00 Intake Total 1939 ml 1490 ml Output Total 1350 ml 1000 ml Balance 589 ml 490 ml IV Total 1939 ml 1490 ml Output Urine Total 1150 ml 600 ml Other 200 ml 400 ml Laboratory Tests Test 12/24/18 05:00 White Blood Count 7.6 K/UL (4.8-10.8) Red Blood Count 2.87 M/UL (4.20-5.40) L Hemoglobin 8.9 G/DL (12.0-16.0) L Hematocrit 26.7 % (37.0-47.0) L Mean Corpuscular Volume 93 FL (80-99) Mean Corpuscular Hemoglobin 30.9 PG (27.0-31.0) Mean Corpuscular Hemoglobin Concent 33.2 G/DL (32.0-36.0) Red Cell Distribution Width 11.9 % (11.6-14.8) Platelet Count 232 K/UL (150-450) Mean Platelet Volume 6.6 FL (6.5-10.1) Neutrophils (%) (Auto) 75.0 % (45.0-75.0) Lymphocytes (%) (Auto) 11.1 % (20.0-45.0) L Monocytes (%) (Auto) 7.8 % (1.0-10.0) Eosinophils (%) (Auto) 5.4 % (0.0-3.0) H Basophils (%) (Auto) 0.6 % (0.0-2.0) Sodium Level 138 MMOL/L (136-145) Potassium Level 3.8 MMOL/L (3.5-5.1) Chloride Level 105 MMOL/L (98-107) Carbon Dioxide Level 25 MMOL/L (21-32) Anion Gap 8 mmol/L (5-15) Blood Urea Nitrogen 24 mg/dL (7-18) H Creatinine 0.9 MG/DL (0.55-1.30) Estimat Glomerular Filtration Rate > 60 mL/min (>60) Glucose Level 164 MG/DL (74-106) H Calcium Level 9.3 MG/DL (8.5-10.1) Magnesium Level 1.6 MG/DL (1.8-2.4) L Total Bilirubin 0.3 MG/DL (0.2-1.0) Aspartate Amino Transf (AST/SGOT) 15 U/L (15-37) Alanine Aminotransferase (ALT/SGPT) 23 U/L (12-78) Alkaline Phosphatase 218 U/L (46-116) H Total Protein 5.6 G/DL (6.4-8.2) L Albumin 1.6 G/DL (3.4-5.0) L Globulin 4.0 g/dL Albumin/Globulin Ratio 0.4 (1.0-2.7) L Micha Ziegler MD Dec 24, 2018 15:41
--- NOTE | 2018-12-24 16:29 | NUR ---
CASE MANAGEMENT:REVIEW 12/24/18 SI: POD #6 MALFUNCTIONING KOCK POUCH CONTINENT ILEOSTOMY S/P RESECTION,ENTEROENTEROSTOMY AND CREATION OF SUKHI ILEOSTOMY 98.8 79 18 165/74 94% ON RA H/H-8.9/26.7 MAG-1.6 IS: LISINOPRIL PO QD CELLCEPT PO BID IV MAG SULFATE Q1HRS X2 BAGS IVF@25/HR LOPRESSOR PO Q12 TPN/IL @ 74/HR IV TORADOL Q6HRS PRN PROTONIX PO QD PROGRAF PO BID SYNTHROID PO QD : MED/SURG STATUS 3 EAST DCP: FROM HOME
--- NOTE | 2018-12-24 18:54 | NUR ---
NURSE NOTES: resting in bed. in no apparent distress.
--- NOTE | 2018-12-24 19:45 | NUR ---
HAND-OFF: Report given to Brooklyn OLIVAREZ RN.
--- NOTE | 2018-12-24 19:50 | NUR ---
NURSE NOTES: Received report from Milady Sandoval RN. Rounds done. Patient alert, no distress noted. No complaints at this time. PICC line in MARILY, intact and patent. Abdominal dressing intact and dry. Ileostomy bag intact, patient prefers to empty it herself, will monitor as needed and record output. Incentive spirometer use encouraged. Patient ambulates without difficulty. Bed in low position, locked, side rails up x2, call light within reach. Will continue to monitor as needed.
[2018-12-24] MEDS: Dyna-Hex 2% Top Sol 2oz TOPIC SCH (20:44)
[2018-12-24] MEDS: Fat Emulsion Iv 20% 216 ML in Tpn 1,560 ML IV SCH (20:45)
[2018-12-25] VITALS: BP 146/67
[2018-12-25] MEDS: NovoLOG Insulin Flexpen SUBQ SCH ×4 (00:16→17:18)
[2018-12-25] MEDS: Ketorolac 30mg Inj IV PRN (05:05)
[2018-12-25] MEDS: Levothyroxine 125mcg tab ORAL SCH (05:53)
[2018-12-25 06:44] LABS: HEMATOCRIT 28.9 % (37.0-47.0); HEMOGLOBIN 9.6 G/DL (12.0-16.0); MEAN CORPUSCULAR VOLUME 92 FL (80-99); PLATELET COUNT 315 K/UL (150-450); RED BLOOD COUNT 3.13 M/UL (4.20-5.40); RED CELL DISTRIBUTION WIDTH 12.5 % (11.6-14.8); WHITE BLOOD COUNT 11.2 K/UL (4.8-10.8)
--- NOTE | 2018-12-25 07:20 | NUR ---
HAND-OFF: Report given to PATRICK Henning.
--- NOTE | 2018-12-25 07:42 | NUR ---
NURSE NOTES: ASLEEP. IN NO APPARENT DISTRESS.
[2018-12-25 07:54] LABS: ALANINE AMINOTRANSFERASE 32 U/L (12-78); ALBUMIN 1.9 G/DL (3.4-5.0); ALBUMIN/GLOBULIN RATIO 0.4 (1.0-2.7); ALKALINE PHOSPHATASE 316 U/L (46-116); ANION GAP 13 mmol/L (5-15); ASPARTATE AMINO TRANSFERASE 20 U/L (15-37); BILIRUBIN,TOTAL 0.4 MG/DL (0.2-1.0); BLOOD UREA NITROGEN 23 mg/dL (7-18); CALCIUM 9.4 MG/DL (8.5-10.1); CARBON DIOXIDE 21 MMOL/L (21-32); CHLORIDE 102 MMOL/L (98-107); CREATININE 0.9 MG/DL (0.55-1.30); POTASSIUM 3.8 MMOL/L (3.5-5.1); SODIUM 136 MMOL/L (136-145)
[2018-12-25 08:00] VITALS: BP 137/65
[2018-12-25] MEDS: D5 1/2NS w/KCl 40meq 1000ml 1,000 ML IV SCH (08:00)
[2018-12-25] MEDS: Mycophenolate 250mg cap ORAL SCH ×2 (08:53→20:39)
[2018-12-25] MEDS: Metoprolol Succinate XL 25mg tab ORAL SCH (08:54)
[2018-12-25] MEDS: Lisinopril 20mg tab ORAL SCH ×2 (08:54→17:53)
--- NOTE | 2018-12-25 10:00 | NUR ---
NURSE NOTES: ileostomy bag leaking. skin care done and ileostomy bag changed. dressing changes.
--- NOTE | 2018-12-25 10:40 | General Progress Note ---
Assessment/Plan Status: unchanged Assessment/Plan: (1) Malfunctioning Kock Pouch (2) History of liver transplant ICD Codes: Z94.4 - Liver transplant status SNOMED: [id number] Status: unchanged Status Narrative Discussed with Dr. Dozier. Assessment/Plan 1. Malfunctioning Kock pouch continent ileostomy with increasing difficulty with intubation and increasing incontinence of stool and gas. 2. History of ulcerative colitis. 3. History of primary sclerosing cholangitis. 4. STATUS POST MULTIPLE ABDOMINAL OPERATIONS: 4.1. Proctocolectomy and Kock pouch continent ileostomy in 1978. 4.2. Total abdominal hysterectomy and bilateral salpingo-oophorectomy in 1983. 4.3. Appendectomy age 15. 4.4. Cholecystectomy in 1985. 4.5. Liver transplantation in 1999. 4.6. Laparotomy with revision of Kock pouch and repair of pouch cutaneous fistula in 2010. Status post exploratory laparotomy with lysis of the adhesions and continent pouch repair maintain NPO + IVF continue zosyn monitor tacrolimus levels,increase the dose to 3 gm per day(spoke with pharmacy) zofran prn, compazine prn fu LFTs endoscopy if necessary on TPN cellcept 750 BID prograft 3 gm per day monitor for lytes add protonix Subjective ROS Limited/Unobtainable: Yes Allergies: Coded Allergies: CODEINE (Verified Allergy, Severe, 12/17/18) Face contractions HYDROMORPHONE (Verified Allergy, Severe, Itching, 12/17/18) Itching whole body METOCLOPRAMIDE (Verified Allergy, Severe, 12/17/18) Face contractions MORPHINE (Verified Allergy, Severe, Shortness of Breath, 12/17/18) SULFA (SULFONAMIDE ANTIBIOTICS) (Verified Allergy, Severe, 12/17/18) Face contractions Subjective abd pain gerd Objective Last 24 Hour Vital Signs Date Time Temp Pulse Resp B/P (MAP) Pulse Ox O2 Delivery O2 Flow Rate FiO2 12/25/18 09:00 Room Air 12/25/18 08:54 80 137/65 12/25/18 08:54 137/65 12/25/18 08:00 97.8 80 20 137/65 (89) 97 12/25/18 07:32 98.7 12/25/18 05:35 98.7 12/25/18 00:00 98.7 72 18 146/67 (93) 98 12/24/18 21:00 Room Air 12/24/18 20:00 99.0 80 18 131/65 (87) 97 12/24/18 18:06 136/84 12/24/18 18:00 84 136/84 (101) 12/24/18 16:00 98.8 79 18 165/74 (104) 94 12/24/18 15:58 165/74 12/24/18 12:00 98.0 76 18 148/67 (94) 98 Intake and Output 12/24/18 12/25/18 18:59 06:59 Intake Total 1338 ml 1188 ml Output Total 1275 ml 1335 ml Balance 63 ml -147 ml IV Total 1338 ml 1188 ml Output Urine Total 1000 ml 1150 ml Other 275 ml 185 ml # Voids 4 4 Laboratory Tests 12/25/18 05:45: White Blood Count 11.2H, Red Blood Count 3.13L, Hemoglobin 9.6L, Hematocrit 28.9L, Mean Corpuscular Volume 92, Mean Corpuscular Hemoglobin 30.6, Mean Corpuscular Hemoglobin Concent 33.2, Red Cell Distribution Width 12.5, Platelet Count 315, Mean Platelet Volume 6.5, Neutrophils (%) (Auto) , Lymphocytes (%) ( Auto) , Monocytes (%) (Auto) , Eosinophils (%) (Auto) , Basophils (%) (Auto) , Differential Total Cells Counted 100, Neutrophils % (Manual) 85H, Lymphocytes % (Manual) 10L, Monocytes % (Manual) 4, Eosinophils % (Manual) 1, Basophils % ( Manual) 0, Band Neutrophils 0, Platelet Estimate Adequate, Platelet Morphology Normal, Red Blood Cell Morphology Normal, Sodium Level 136, Potassium Level 3.8 , Chloride Level 102, Carbon Dioxide Level 21, Anion Gap 13, Blood Urea Nitrogen 23H, Creatinine 0.9, Estimat Glomerular Filtration Rate > 60, Glucose Level 156H, Calcium Level 9.4, Magnesium Level 1.5L, Total Bilirubin 0.4, Aspartate Amino Transf (AST/SGOT) 20, Alanine Aminotransferase (ALT/SGPT) 32, Alkaline Phosphatase 316H, Total Protein 6.4, Albumin 1.9L, Globulin 4.5, Albumin/Globulin Ratio 0.4L Height (Feet): 5 Height (Inches): 5.00 Weight (Pounds): 136 General Appearance: alert EENT: normal ENT inspection Neck: supple Cardiovascular: normal rate Respiratory/Chest: lungs clear Abdomen: decreased bowel sounds, distended, tender Extremities: non-tender Max Dozier MD Dec 25, 2018 10:40
[2018-12-25 12:00] VITALS: BP 156/87
--- NOTE | 2018-12-25 12:20 | NUR ---
NURSE NOTES: OOB,AMBULATED OUT IN THE BAKER TOLERTAED.
--- NOTE | 2018-12-25 14:20 | NUR ---
NURSE NOTES: GIVEN PERCOCET 10/325 FOR PAIN. AFTER FEW MINUTES FELT NAUSEATED AND VOMITED PAIN MED PREVIOUSLY TAKEN. ZOFRAN 4MG GIVEN IV ORDERED. WILL CONTINUE TO MONITOR PT.
--- NOTE | 2018-12-25 15:03 | Cardiology Progress Note ---
Assessment/Plan Status Narrative 1. Malfunctioning Kock pouch continent ileostomy. 2. History of ulcerative colitis. 3. History of primary sclerosing cholangitis. 4. Status post multiple abdominal operations. 4.1. Appendectomy in 1964. 4.2. Proctocolectomy and Kock pouch in 1978. 4.3. Total abdominal hysterectomy and bilateral salpingo-oophorectomy 1983 4.4. Cholecystectomy in 1985. 4.5. Orthotopic liver transplantation in 1999. 4.6. Revision of Kock pouch and repair of fistula in 2010. HTN- New onset- ? due to Dilaudid, pain, nausea- Tachycardia- improved with IV Fluids and Beta Blockers. Assessment/Plan Clonidine ).1 mg Q6h PRN Metoprolol reduced to 25 mg QD Increase Zestril 40 mg BID. Based on Echo and her clinical picture, she will need some form of meds for HTN as out-patient. Will adjust meds as her condition improves. IV at 25 cc/h pain management.\ Monitor clinical picture- Advance diet as per Dr. Sotomayor repeat dose of Percocet since it was vomited. Discussed with Patient and RN. Subjective Cardiovascular: Reports: no symptoms Respiratory: Reports: no symptoms Gastrointestinal/Abdominal: Reports: abdomen distended, abdominal pain, nausea , vomiting Genitourinary: Reports: no symptoms Subjective on Percocet and SQ Dilaudid. Vomited after meds given On Lisinopril and Metoprolol. WBC increased Objective Last 24 Hour Vital Signs Date Time Temp Pulse Resp B/P (MAP) Pulse Ox O2 Delivery O2 Flow Rate FiO2 12/25/18 12:00 99.5 84 18 156/87 (110) 98 12/25/18 11:51 96 Nasal Cannula 2.0 28 12/25/18 09:00 Room Air 12/25/18 08:54 80 137/65 12/25/18 08:54 137/65 12/25/18 08:00 97.8 80 20 137/65 (89) 97 12/25/18 07:32 98.7 12/25/18 05:35 98.7 12/25/18 00:00 98.7 72 18 146/67 (93) 98 12/24/18 21:00 Room Air 12/24/18 20:00 99.0 80 18 131/65 (87) 97 12/24/18 18:06 136/84 12/24/18 18:00 84 136/84 (101) 12/24/18 16:00 98.8 79 18 165/74 (104) 94 12/24/18 15:58 165/74 Cardiovascular: normal rate, regular rhythm, no gallop/murmur Respiratory/Chest: lungs clear, normal breath sounds Abdomen: soft, no organomegaly, hypoactive bowel sounds, distended, guarding Extremities: non-tender, normal inspection, no calf tenderness, no swelling Intake and Output 12/24/18 12/25/18 19:00 07:00 Intake Total 1363 ml 1188 ml Output Total 1275 ml 1335 ml Balance 88 ml -147 ml IV Total 1363 ml 1188 ml Output Urine Total 1000 ml 1150 ml Other 275 ml 185 ml # Voids 4 4 Laboratory Tests Test 12/25/18 05:45 White Blood Count 11.2 K/UL (4.8-10.8) H Red Blood Count 3.13 M/UL (4.20-5.40) L Hemoglobin 9.6 G/DL (12.0-16.0) L Hematocrit 28.9 % (37.0-47.0) L Mean Corpuscular Volume 92 FL (80-99) Mean Corpuscular Hemoglobin 30.6 PG (27.0-31.0) Mean Corpuscular Hemoglobin Concent 33.2 G/DL (32.0-36.0) Red Cell Distribution Width 12.5 % (11.6-14.8) Platelet Count 315 K/UL (150-450) Mean Platelet Volume 6.5 FL (6.5-10.1) Neutrophils (%) (Auto) % (45.0-75.0) Lymphocytes (%) (Auto) % (20.0-45.0) Monocytes (%) (Auto) % (1.0-10.0) Eosinophils (%) (Auto) % (0.0-3.0) Basophils (%) (Auto) % (0.0-2.0) Differential Total Cells Counted 100 Neutrophils % (Manual) 85 % (45-75) H Lymphocytes % (Manual) 10 % (20-45) L Monocytes % (Manual) 4 % (1-10) Eosinophils % (Manual) 1 % (0-3) Basophils % (Manual) 0 % (0-2) Band Neutrophils 0 % (0-8) Platelet Estimate Adequate Platelet Morphology Normal Red Blood Cell Morphology Normal Sodium Level 136 MMOL/L (136-145) Potassium Level 3.8 MMOL/L (3.5-5.1) Chloride Level 102 MMOL/L (98-107) Carbon Dioxide Level 21 MMOL/L (21-32) Anion Gap 13 mmol/L (5-15) Blood Urea Nitrogen 23 mg/dL (7-18) H Creatinine 0.9 MG/DL (0.55-1.30) Estimat Glomerular Filtration Rate > 60 mL/min (>60) Glucose Level 156 MG/DL (74-106) H Calcium Level 9.4 MG/DL (8.5-10.1) Magnesium Level 1.5 MG/DL (1.8-2.4) L Total Bilirubin 0.4 MG/DL (0.2-1.0) Aspartate Amino Transf (AST/SGOT) 20 U/L (15-37) Alanine Aminotransferase (ALT/SGPT) 32 U/L (12-78) Alkaline Phosphatase 316 U/L (46-116) H Total Protein 6.4 G/DL (6.4-8.2) Albumin 1.9 G/DL (3.4-5.0) L Globulin 4.5 g/dL Albumin/Globulin Ratio 0.4 (1.0-2.7) L Micha Ziegler MD Dec 25, 2018 15:03
--- NOTE | 2018-12-25 15:33 | NUR ---
*-*INSURANCE *-* UPDATED CLINICALS HAVE BEEN FAXED TO: [facility]#[phone]
--- NOTE | 2018-12-25 15:48 | NUR ---
CASE MANAGEMENT:REVIEW 12/25/18 SI: POD #7 MALFUNCTIONING KOCK POUCH CONTINENT ILEOSTOMY S/P RESECTION,ENTEROENTEROSTOMY AND CREATION OF SUKHI ILEOSTOMY 99.5 84 18 156/87 98% ON 2L/NC WBC+11.2 H/H-9.6/28.9 IS: LISINOPRIL PO QD (DOSE INCREASED TO 40MG) CELLCEPT PO BID IV MAG SULFATE Q1HRS X2 BAGS IVF@25/HR LOPRESSOR PO Q12 TPN/IL @ 74/HR IV TORADOL Q6HRS PRN PROTONIX PO QD PROGRAF PO BID SYNTHROID PO QD : MED/SURG STATUS 3 EAST DCP: FROM HOME PLAN: CONTINUE TPN/IL
[2018-12-25 16:00] VITALS: BP 152/75
--- NOTE | 2018-12-25 16:41 | General Progress Note ---
Progress Note Progress Note AVSS Still with distended abdomen and pain and intermittent nausea but no emesis ABdomen distended and tympanitic Incision clean, stoma pink Urine 2150 Ileostomy 460 WBC up 11,200 Hgb up 9.6 BMP ok Magnesium 1.5 elevated alk phos - likely due to TPN per GI Imp. Partial small bowel obstruction Plan: If not improved by AM will need CT of abd+pelvis with oral contrast Mg infusions f/u labs Lars Sotomayor MD Dec 25, 2018 16:41
--- NOTE | 2018-12-25 19:00 | NUR ---
NURSE NOTES: IN NO APPARENT DISTRESS. CONDITION STABLE.
--- NOTE | 2018-12-25 19:34 | NUR ---
HAND-OFF: Report given to Brooklyn OLIVAREZ RN.
--- NOTE | 2018-12-25 19:35 | NUR ---
NURSE NOTES: Received report from PATRICK Henning. Rounds done. Patient in no distress, no complains of pain at this time. Abdominal incision with reggie VISHNU, intact, no bleeding. Ileostomy bag, intact. PICC in MARILY, intact, patent. Bed in low position, locked, side rails upx 2, call light within reach. Will continue to monitor.
[2018-12-25 20:00] VITALS: BP 145/77
[2018-12-25] MEDS: Dyna-Hex 2% Top Sol 2oz TOPIC SCH (20:39)
[2018-12-25] MEDS: Fat Emulsion Iv 20% 216 ML in Tpn 1,560 ML IV SCH (20:40)
--- NOTE | 2018-12-25 21:30 | NUR ---
NURSE NOTES: Noticed leaking from ileostomy bag, skin care done, ileo bag changed by charge nurse. Patient tolerated procedure well.
--- NOTE | 2018-12-25 23:15 | NUR ---
NURSE NOTES: Ileostomy bag leaking, skin care done. Charge nurse changed ileostomy bag, patient tolerated well. Will continue to closely monitor.
[2018-12-26] VITALS (7 sets, daily range): BP systolic 112–157; BP diastolic 58–75
[2018-12-26] MEDS: NovoLOG Insulin Flexpen SUBQ SCH ×4 (00:29→17:49)
[2018-12-26] MEDS: Ketorolac 30mg Inj IV PRN ×2 (02:40→11:34)
[2018-12-26] MEDS: D5 1/2NS w/KCl 40meq 1000ml 1,000 ML IV SCH (05:09)
[2018-12-26] MEDS: Levothyroxine 125mcg tab ORAL SCH (06:35)
[2018-12-26 06:36] LABS: ALANINE AMINOTRANSFERASE 30 U/L (12-78); ALBUMIN 1.8 G/DL (3.4-5.0); ALBUMIN/GLOBULIN RATIO 0.4 (1.0-2.7); ALKALINE PHOSPHATASE 321 U/L (46-116); ANION GAP 10 mmol/L (5-15); ASPARTATE AMINO TRANSFERASE 16 U/L (15-37); BILIRUBIN,TOTAL 0.4 MG/DL (0.2-1.0); BLOOD UREA NITROGEN 23 mg/dL (7-18); CARBON DIOXIDE 25 MMOL/L (21-32); CHLORIDE 103 MMOL/L (98-107); CREATININE 0.9 MG/DL (0.55-1.30); POTASSIUM 3.8 MMOL/L (3.5-5.1); SODIUM 137 MMOL/L (136-145)
[2018-12-26 06:37] LABS: BASOPHILS % (AUTO) 0.9 % (0.0-2.0); EOSINOPHILS % (AUTO) 1.8 % (0.0-3.0); HEMATOCRIT 29.2 % (37.0-47.0); HEMOGLOBIN 9.6 G/DL (12.0-16.0); LYMPHOCYTES % (AUTO) 10.3 % (20.0-45.0); MEAN CORPUSCULAR VOLUME 92 FL (80-99); MONOCYTES % (AUTO) 5.8 % (1.0-10.0); NEUTROPHILS % (AUTO) 81.2 % (45.0-75.0); PLATELET COUNT 354 K/UL (150-450); RED BLOOD COUNT 3.16 M/UL (4.20-5.40)
--- NOTE | 2018-12-26 07:15 | NUR ---
HAND-OFF: Report given to PATRICK Maria. No distress noted, rounds done
--- NOTE | 2018-12-26 07:45 | NUR ---
NURSE NOTES: Received report from PATRICK Pena. Rounding done with outgoing nurse. Pt a/o x 4, in bed. No respiratory distress noted. Denies any pain at this time. Lt ileostomy bag is secure. MARILY PICC line is patent. Bed in lowest position, call light within reach. Will continue to monitor.
[2018-12-26] MEDS ORDERED: Isovue-300 100ml vial INJ PRN (08:15)
[2018-12-26] MEDS: Mycophenolate 250mg cap ORAL SCH ×2 (08:40→20:24)
[2018-12-26] MEDS: Lisinopril 20mg tab ORAL SCH ×2 (08:42→17:47)
[2018-12-26] MEDS: Metoprolol Succinate XL 25mg tab ORAL SCH (08:43)
[2018-12-26] MEDS: Pantoprazole Inj IVP SCH (08:53)
--- NOTE | 2018-12-26 09:46 | General Progress Note ---
Assessment/Plan Status: unchanged Assessment/Plan: (1) Malfunctioning Kock Pouch (2) History of liver transplant ICD Codes: Z94.4 - Liver transplant status SNOMED: [id number] Status: unchanged Status Narrative Discussed with Dr. Dozier. Assessment/Plan 1. Malfunctioning Kock pouch continent ileostomy with increasing difficulty with intubation and increasing incontinence of stool and gas. 2. History of ulcerative colitis. 3. History of primary sclerosing cholangitis. 4. STATUS POST MULTIPLE ABDOMINAL OPERATIONS: 4.1. Proctocolectomy and Kock pouch continent ileostomy in 1978. 4.2. Total abdominal hysterectomy and bilateral salpingo-oophorectomy in 1983. 4.3. Appendectomy age 15. 4.4. Cholecystectomy in 1985. 4.5. Liver transplantation in 1999. 4.6. Laparotomy with revision of Kock pouch and repair of pouch cutaneous fistula in 2010. Status post exploratory laparotomy with lysis of the adhesions and continent pouch repair maintain NPO + IVF continue zosyn monitor tacrolimus levels,increase the dose to 3 gm per day(spoke with pharmacy) zofran prn, compazine prn fu LFTs endoscopy if necessary on TPN cellcept 750 BID prograft 3 gm per day monitor for lytes protonix fu abd CT Subjective ROS Limited/Unobtainable: Yes Allergies: Coded Allergies: CODEINE (Verified Allergy, Severe, 12/17/18) Face contractions HYDROMORPHONE (Verified Allergy, Severe, Itching, 12/17/18) Itching whole body METOCLOPRAMIDE (Verified Allergy, Severe, 12/17/18) Face contractions MORPHINE (Verified Allergy, Severe, Shortness of Breath, 12/17/18) SULFA (SULFONAMIDE ANTIBIOTICS) (Verified Allergy, Severe, 12/17/18) Face contractions Subjective abd pain Objective Last 24 Hour Vital Signs Date Time Temp Pulse Resp B/P (MAP) Pulse Ox O2 Delivery O2 Flow Rate FiO2 12/26/18 08:43 85 157/74 12/26/18 08:42 157/74 12/26/18 08:00 99.2 85 18 137/74 (95) 98 12/26/18 05:19 97.8 75 17 138/61 (86) 97 12/26/18 00:00 98.3 79 18 144/67 (92) 97 12/25/18 21:00 Room Air 12/25/18 20:00 99.6 86 18 145/77 (99) 97 12/25/18 17:53 152/75 12/25/18 17:05 99.5 12/25/18 16:00 99.6 89 18 152/75 (100) 97 12/25/18 14:40 99.5 12/25/18 12:00 99.5 84 18 156/87 (110) 98 12/25/18 11:51 96 Nasal Cannula 2.0 28 Intake and Output 12/25/18 12/26/18 18:59 06:59 Intake Total 1288 ml 990 ml Output Total 1610 ml 2110 ml Balance -322 ml -1120 ml IV Total 1288 ml 990 ml Output Urine Total 1300 ml 1730 ml Emesis 50 ml Other 260 ml 380 ml # Voids 7 6 Laboratory Tests 12/26/18 05:15: White Blood Count 11.0H, Red Blood Count 3.16L, Hemoglobin 9.6L, Hematocrit 29.2L, Mean Corpuscular Volume 92, Mean Corpuscular Hemoglobin 30.3, Mean Corpuscular Hemoglobin Concent 32.7, Red Cell Distribution Width 12.0, Platelet Count 354, Mean Platelet Volume 6.3L, Neutrophils (%) (Auto) 81.2H, Lymphocytes (%) (Auto) 10.3L, Monocytes (%) (Auto) 5.8, Eosinophils (%) (Auto) 1.8, Basophils (%) (Auto) 0.9, Sodium Level 137, Potassium Level 3.8, Chloride Level 103, Carbon Dioxide Level 25, Anion Gap 10, Blood Urea Nitrogen 23H, Creatinine 0.9, Estimat Glomerular Filtration Rate > 60, Glucose Level 159H, Calcium Level 10.0, Magnesium Level 2.0, Total Bilirubin 0.4, Aspartate Amino Transf (AST/SGOT ) 16, Alanine Aminotransferase (ALT/SGPT) 30, Alkaline Phosphatase 321H, Total Protein 6.2L, Albumin 1.8L, Globulin 4.4, Albumin/Globulin Ratio 0.4L Height (Feet): 5 Height (Inches): 5.00 Weight (Pounds): 136 General Appearance: alert EENT: normal ENT inspection Neck: normal alignment Cardiovascular: normal peripheral pulses Respiratory/Chest: lungs clear Abdomen: soft, decreased bowel sounds, distended Extremities: non-tender Vosoghi,Max MD Dec 26, 2018 09:46
--- NOTE | 2018-12-26 10:20 | NUR ---
NURSE NOTES: Patient is off the unit for CT of abd/pelvis in stable condition.
--- NOTE | 2018-12-26 10:51 | NUR ---
NURSE NOTES: Patient came back from CT of abd/pelvis.
--- NOTE | 2018-12-26 11:00 | NUR ---
PT NOTE Attempted to see patient for PT treatment. Patient declining to participate with PT, c/o not feeling well. Will re-attempt later as schedule permits.
--- NOTE | 2018-12-26 11:23 | NUR ---
*-*INSURANCE *-* UPDATED CLINICALS AND REVIEW HAVE BEEN FAXED TO: [facility]#[phone]
--- NOTE | 2018-12-26 12:18 | Diagnostic Imaging Report ---
Indication: Abdominal pain and distention. History of malfunctioning Kock pouch. Recent surgery. Technique: Continuous helical transaxial imaging of the abdomen and pelvis was obtained from the lung bases to the pubic symphysis during intravenous contrast administration. Coronal 2-D reformats were also obtained. Study obtained in a Siemens sensation [address] Automatic Exposure Control was utilized. Total Dose length Product (DLP): 827.[address] Dose Index Volume (CTDIvol): 16.14 mGy Comparison: None Findings: The patient is status post recent abdominal surgery with skin reggie still present in the ventral abdominal wall. There is a left lower quadrant ileostomy with good opacification of small bowel with contrast demonstrated entering the stoma and ileostomy bag. There is therefore no small bowel obstruction. The opacified loops of small bowel are mildly distended. There is one segment in the left lower quadrant that shows a some stricturing with thickening of the wall. In addition there is a dilated fluid and air-filled structure which appears to be bowel just above the urinary bladder. This does not appear to contain contrast material, but does not have the appearance of the peritoneal abscess. The end of this very dilated bowel loop does appear to communicate with part of the ileum. Still, it is curiosity that this structure is not contrast-filled since there is good opacification of small bowel leading to the ileostomy. Considering whether this could be a large diverticulum or remnant of the previous long-standing Kock pouch. A small amount of fluid is seen anteriorly just deep to the ventral scar in the abdominal wall. This is consistent with postsurgical change. There is slight nodularity of the liver which is otherwise normally enhancing. There are surgical clips about the liver which may noted to be a transplant. Gallbladder is absent. The pancreas is unremarkable. There is no biliary ductal dilatation. There is no hydronephrosis. Aorta is moderately calcified. Spleen is normal in size. Adrenal glands are unremarkable. Minimal atelectasis noted at the lung bases. IMPRESSION: Status post recent abdominal surgery with creation of a left lower quadrant Yajaira ileostomy. Good bowel and bag opacification with no evidence of bowel obstruction. Unusual, markedly distended unopacified loop of bowel in the pelvis. Although unopacified, this does not appear to be an abscess as there is a wall and other characteristics more in keeping with bowel. Would consider a large diverticulum or possibly remnant of the previous Kock pouch or part of the small bowel leading to the old pouch as those segments are sometimes quite distended. Status post liver transplant. Status post cholecystectomy. Mild basal atelectasis. The CT scanner at [facility] is accredited by the [employer] and the scans are performed using dose optimization techniques as appropriate to a performed exam including Automatic Exposure control.
--- NOTE | 2018-12-26 13:02 | NUR ---
CASE MANAGEMENT:REVIEW 12/26/18 SI: POD #8 MALFUNCTIONING KOCK POUCH CONTINENT ILEOSTOMY S/P RESECTION,ENTEROENTEROSTOMY AND CREATION OF SUKHI ILEOSTOMY 99.2 85 18 137/74 98% ON RA IS: IV PROTONIX QD LISINOPRIL PO BID CELLCEPT PO Q12 TOPROL XL PO QD IVF@75/HR TPN/IL : MED/SURG STATUS 3 EAST DCP: FROM HOME PLAN: CONTINUE TPN/IL
--- NOTE | 2018-12-26 13:47 | Cardiology Progress Note ---
Assessment/Plan Status Narrative 1. Malfunctioning Kock pouch continent ileostomy. 2. History of ulcerative colitis. 3. History of primary sclerosing cholangitis. 4. Status post multiple abdominal operations. 4.1. Appendectomy in 1964. 4.2. Proctocolectomy and Kock pouch in 1978. 4.3. Total abdominal hysterectomy and bilateral salpingo-oophorectomy 1983 4.4. Cholecystectomy in 1985. 4.5. Orthotopic liver transplantation in 1999. 4.6. Revision of Kock pouch and repair of fistula in 2010. HTN- New onset- ? due to Dilaudid, pain, nausea- Tachycardia- improved with IV Fluids and Beta Blockers. Assessment/Plan Clonidine ).1 mg Q6h PRN Metoprolol 25 mg QD Zestril 40 mg BID. If BP remains high, will increase Metoprolol IV at 25 cc/h pain management.\ Monitor clinical picture- Advance diet as per Dr. Sotomayor Discussed with Patient and RN. Subjective Cardiovascular: Reports: no symptoms Respiratory: Reports: no symptoms Gastrointestinal/Abdominal: Reports: abdomen distended, abdominal pain, other - watery stool Genitourinary: Reports: no symptoms Subjective on Percocet and SQ Dilaudid. On Lisinopril and Metoprolol. Had CT abdomen done to day - No obstruction noted Objective Last 24 Hour Vital Signs Date Time Temp Pulse Resp B/P (MAP) Pulse Ox O2 Delivery O2 Flow Rate FiO2 12/26/18 12:00 99.1 80 18 151/75 (100) 97 12/26/18 09:00 Room Air 12/26/18 08:43 85 157/74 12/26/18 08:42 157/74 12/26/18 08:00 99.2 85 18 137/74 (95) 98 12/26/18 05:19 97.8 75 17 138/61 (86) 97 12/26/18 00:00 98.3 79 18 144/67 (92) 97 12/25/18 21:00 Room Air 12/25/18 20:00 99.6 86 18 145/77 (99) 97 12/25/18 17:53 152/75 12/25/18 17:05 99.5 12/25/18 16:00 99.6 89 18 152/75 (100) 97 12/25/18 14:40 99.5 Cardiovascular: normal rate, regular rhythm, no gallop/murmur Respiratory/Chest: lungs clear, normal breath sounds Abdomen: soft, hypoactive bowel sounds, distended, tender Extremities: other - watery stool in bag Intake and Output 12/25/18 12/26/18 18:59 06:59 Intake Total 1288 ml 990 ml Output Total 1610 ml 2110 ml Balance -322 ml -1120 ml IV Total 1288 ml 990 ml Output Urine Total 1300 ml 1730 ml Emesis 50 ml Other 260 ml 380 ml # Voids 7 6 Laboratory Tests Test 12/26/18 05:15 White Blood Count 11.0 K/UL (4.8-10.8) H Red Blood Count 3.16 M/UL (4.20-5.40) L Hemoglobin 9.6 G/DL (12.0-16.0) L Hematocrit 29.2 % (37.0-47.0) L Mean Corpuscular Volume 92 FL (80-99) Mean Corpuscular Hemoglobin 30.3 PG (27.0-31.0) Mean Corpuscular Hemoglobin Concent 32.7 G/DL (32.0-36.0) Red Cell Distribution Width 12.0 % (11.6-14.8) Platelet Count 354 K/UL (150-450) Mean Platelet Volume 6.3 FL (6.5-10.1) L Neutrophils (%) (Auto) 81.2 % (45.0-75.0) H Lymphocytes (%) (Auto) 10.3 % (20.0-45.0) L Monocytes (%) (Auto) 5.8 % (1.0-10.0) Eosinophils (%) (Auto) 1.8 % (0.0-3.0) Basophils (%) (Auto) 0.9 % (0.0-2.0) Sodium Level 137 MMOL/L (136-145) Potassium Level 3.8 MMOL/L (3.5-5.1) Chloride Level 103 MMOL/L (98-107) Carbon Dioxide Level 25 MMOL/L (21-32) Anion Gap 10 mmol/L (5-15) Blood Urea Nitrogen 23 mg/dL (7-18) H Creatinine 0.9 MG/DL (0.55-1.30) Estimat Glomerular Filtration Rate > 60 mL/min (>60) Glucose Level 159 MG/DL (74-106) H Calcium Level 10.0 MG/DL (8.5-10.1) Magnesium Level 2.0 MG/DL (1.8-2.4) Total Bilirubin 0.4 MG/DL (0.2-1.0) Aspartate Amino Transf (AST/SGOT) 16 U/L (15-37) Alanine Aminotransferase (ALT/SGPT) 30 U/L (12-78) Alkaline Phosphatase 321 U/L (46-116) H Total Protein 6.2 G/DL (6.4-8.2) L Albumin 1.8 G/DL (3.4-5.0) L Globulin 4.4 g/dL Albumin/Globulin Ratio 0.4 (1.0-2.7) L Micha Ziegler MD Dec 26, 2018 13:47
--- NOTE | 2018-12-26 14:27 | NUR ---
NURSE NOTES: Patient ambulated hallway x 3 with PT assistance in stable condition.
--- NOTE | 2018-12-26 15:21 | General Progress Note ---
Progress Note Progress Note AVSS Still feeling distended with abdominal pain ABdomen distended, soft, healing well Stoma with difficulty maintaining appliance seal - ET nurse working with her and various appliances Urine 2930 ileostomy 640 WBC 11,000 Hgb 9.6 Mg [address] scan: no obstruction with contrast going into ileostomy appliance, but one segment of bowel is quite dilated Imp. Partial SBO with one dilated loop Plan: continue NPO and TPN Lars Sotomayor MD Dec 26, 2018 15:21
--- NOTE | 2018-12-26 19:30 | NUR ---
NURSE NOTES: Received report from PATRICK Maria and rounds made with outgoing nurse. Received pt in bed, AOx4, denies any pain, no distress noted. Surgical dressing C/D/I. Colostomy bag in place brownish output, no leakage noted. Piccline patent and intact. IV fluid and TPN infusing as ordered. Bed in lowest position and locked, side rails up x 2, call light within reach. Will continue to monitor.
--- NOTE | 2018-12-26 19:33 | NUR ---
HAND-OFF: Report given to PATRICK Zamarripa.
[2018-12-26] MEDS: Dyna-Hex 2% Top Sol 2oz TOPIC SCH (20:09)
[2018-12-26] MEDS: Fat Emulsion Iv 20% 216 ML in Tpn 1,560 ML IV SCH (20:18)
--- NOTE | 2018-12-26 20:40 | NUR ---
NURSE NOTES: Temp. 101.1 pt denies any pain, no distress noted. Tylenol ordered prn for heachache only. Encouraged pt to use incentive spirometry. Paged Dr. Sotomayor, awaiting for call back. Will continue to monitor.
--- NOTE | 2018-12-26 20:50 | NUR ---
NURSE NOTES: Dr. Sotomayor called back order given and read back. Will carry out order.
--- NOTE | 2018-12-26 21:41 | NUR ---
NURSE NOTES: Re-check temp. 100.2 no distress noted. Re-instructed pt to use incentive spirometry every hour while awake x 10. Pt verbalized understanding. Will continue to monitor.
[2018-12-26] MEDS: TraZODone HCl 25 mg tablet ORAL PRN (23:07)
--- NOTE | 2018-12-26 23:10 | NUR ---
NURSE NOTES: Noted leakage from colostomy bag. Replaced colostomy bag with new one. No leakage noted at this time. Will continue to monitor.
[2018-12-27] VITALS: BP 112/60
[2018-12-27] MEDS: NovoLOG Insulin Flexpen SUBQ SCH ×5 (00:19→23:01)
[2018-12-27] MEDS: HYDROmorphone 1mg/ml Carpuject SUBQ PRN ×3 (03:24→23:13)
[2018-12-27 04:00] VITALS: BP 133/63
[2018-12-27 05:15] LABS: BASOPHILS % (AUTO) 0.7 % (0.0-2.0); EOSINOPHILS % (AUTO) 2.1 % (0.0-3.0); HEMATOCRIT 28.6 % (37.0-47.0); HEMOGLOBIN 9.3 G/DL (12.0-16.0); LYMPHOCYTES % (AUTO) 5.8 % (20.0-45.0); MEAN CORPUSCULAR VOLUME 93 FL (80-99); MONOCYTES % (AUTO) 7.5 % (1.0-10.0); NEUTROPHILS % (AUTO) 83.9 % (45.0-75.0); PLATELET COUNT 411 K/UL (150-450); RED BLOOD COUNT 3.07 M/UL (4.20-5.40); RED CELL DISTRIBUTION WIDTH 12.5 % (11.6-14.8); WHITE BLOOD COUNT 12.6 K/UL (4.8-10.8)
--- NOTE | 2018-12-27 05:20 | NUR ---
NURSE NOTES: Colostomy bag leaking on left lower quadrant. Replaced bag with new one, no leakage noted. Will continue to monitor.
[2018-12-27 05:42] LABS: ANION GAP 9 mmol/L (5-15); BLOOD UREA NITROGEN 29 mg/dL (7-18); CALCIUM 9.9 MG/DL (8.5-10.1); CARBON DIOXIDE 26 MMOL/L (21-32); CHLORIDE 101 MMOL/L (98-107); CREATININE 1.2 MG/DL (0.55-1.30); POTASSIUM 4.6 MMOL/L (3.5-5.1); SODIUM 136 MMOL/L (136-145)
[2018-12-27] MEDS: Levothyroxine 125mcg tab ORAL SCH (06:36)
--- NOTE | 2018-12-27 06:42 | NUR ---
NURSE NOTES: Colostomy back intact, no leakage noted, reinforced with paper tape to be secure per pt's request. Will endorse to next nurse.
--- NOTE | 2018-12-27 07:13 | NUR ---
NURSE NOTES: Endorsed to PATRICK Henning to call Cata (wound care nurse) regarding colostomy leakage.
--- NOTE | 2018-12-27 07:14 | NUR ---
HAND-OFF: Report given to PATRICK Henning. Pt in stable condition.
[2018-12-27 08:00] VITALS: BP 140/67
--- NOTE | 2018-12-27 08:02 | General Progress Note ---
Progress Note Progress Note T 101.1 overnight. Difficulty with ileostomy appliance maintaining a seal. She feels better than yesterday Abdomen is still mildly distended, Incisions are clean. Stoma is retracted slightly WBC up 12,600 BUN up 29 Cr up 1.2 Urine 5 Ileostomy 1824 (including oral contrast for CT yesterday) Imp. Fever ? etiology r/o intra-abdominal, r/o PIC line Plan: ID Consultation re IV antibiotics U/A and urine C&S blood cultures via PIC line with next fever f/u labs start clear liquid diet as tolerated Lars Sotomayor MD Dec 27, 2018 08:02
[2018-12-27] MEDS: Mycophenolate 250mg cap ORAL SCH ×2 (08:33→20:23)
[2018-12-27] MEDS: Lisinopril 20mg tab ORAL SCH ×2 (08:34→17:46)
[2018-12-27] MEDS: Metoprolol Succinate XL 25mg tab ORAL SCH (08:34)
[2018-12-27] MEDS: Pantoprazole Inj IVP SCH (08:35)
[2018-12-27] MEDS: D5 1/2NS w/KCl 40meq 1000ml 1,000 ML IV SCH ×2 (08:39→23:27)
[2018-12-27] MEDS: Nystatin Susp 500,000 units/5ml ORAL SCH ×4 (09:11→20:23)
[2018-12-27] MEDS ORDERED: Miconazole Vag Cr 45gm Tube (100mg per applicator) VAGIN SCH (10:00)
--- NOTE | 2018-12-27 10:16 | NUR ---
RD ASSESSMENT & RECOMMENDATIONS SEE CARE ACTIVITY FOR COMPLETE ASSESSMENT DAILY ESTIMATED NEEDS: Needs based on Surgery 61kg 25-30 kcals/kg [id number] total kcals 1-2 g protein/kg 61-122 g total protein 25-30 mL/kg 4195-1190 total fluid mLs NUTRITION DIAGNOSIS: Altered GI fxn r/t h/o UC and malfunctioning kock pouch as evidenced by pt is now s/p kock pouch takedown w/ creation of Yajaira ileo, CLD initiated, remains on TPN CURRENT DIET: CLD PO DIET RECOMMENDATIONS: Advance diet per MD -> LOW FIBER/LOW RESIDUE PARENTERAL NUTRITION RECOMMENDATIONS: D/AA Rate: 65 IL Rate: 9 Total Rate: 74 Volume: 1776 % Dextrose: 18 % AA: 5.5 Energy (kcals/kg): 1730 Protein (g/kg protein): 86 Nonprotein KCALS: 1386 GIR (mg CHO/kg/min): 3.2 % Fat KCALS: 25 NCP: N Ratio: 101:1 TPN Comment: - Maintain current TPN: D18% + AA 5.5% @65ml/hr + 20% IL @9ml/hr -> total of 74ml/hr, all 3:1 - TPN at goal meets 100% est kcal/prot needs (28 kcal/kg and 1.4g prot/kg) - Monitor lytes, BG, and LFT's w/ TPN. ADDITIONAL RECOMMENDATIONS: 1) Obtain a standing weight as pt is able to ambulate in halls 2) Monitor lytes and BG daily w/ TPN Replete as needed 3) LFT's weekly 4) Advance diet per MD 5) Monitor for diet advancement and PO tolerance, ability to taper down TPN 6) Consider DC D5 IVF for improved BG control
[2018-12-27 10:34] LABS: APPEARANCE,URINE CLEAR; BILIRUBIN, URINE NEGATIVE (NEGATIVE); GLUCOSE, URINE (UA) NEGATIVE (NEGATIVE); KETONES,URINE NEGATIVE (NEGATIVE); LEUKOCYTE ESTERASE ,URINE NEGATIVE (NEGATIVE); NITRITE,URINE NEGATIVE (NEGATIVE); PH,URINE 6 (4.5-8.0); PROTEIN,URINE 2+ (NEGATIVE); UROBILINOGEN,URINE NORMAL MG/DL (0.0-1.0)
[2018-12-27 10:43] LABS: COLOR,URINE YELLOW
[2018-12-27 12:00] VITALS: BP 112/64
--- NOTE | 2018-12-27 12:00 | NUR ---
NURSE NOTES: JULIA [facility] CARE NURSE HERE TO SE PT. ILEOSTOMY SKIN CARE DONE AND REPLACED ILEOSTOMY BAG.
--- NOTE | 2018-12-27 12:02 | Infectious Diseases Prog Note ---
Assessment/Plan Assessment/Plan Full consult to follow: A) 1) fevers, leukocytosis, ? sepsis 2) + picc line, TPN 3) CT noted - no definitive abscess described 4) s/p failed Kock pouch resection and creation of Yajaira ileostomy 5) allergies - sulfa allergy noted P) 1) zosyn, vancomycin 2) check blood cultures, ua/uc, labs 3) thank you Subjective Allergies: Coded Allergies: CODEINE (Verified Allergy, Severe, 12/17/18) Face contractions HYDROMORPHONE (Verified Allergy, Severe, Itching, 12/17/18) Itching whole body METOCLOPRAMIDE (Verified Allergy, Severe, 12/17/18) Face contractions MORPHINE (Verified Allergy, Severe, Shortness of Breath, 12/17/18) SULFA (SULFONAMIDE ANTIBIOTICS) (Verified Allergy, Severe, 12/17/18) Face contractions Objective Vital Signs Last 24 Hour Vital Signs Date Time Temp Pulse Resp B/P (MAP) Pulse Ox O2 Delivery O2 Flow Rate FiO2 12/27/18 09:17 Room Air 12/27/18 09:03 97.8 12/27/18 08:34 140/67 12/27/18 08:34 83 140/67 12/27/18 08:00 98.9 83 18 140/67 (91) 96 12/27/18 04:00 97.8 83 17 133/63 (86) 99 12/27/18 00:00 97.7 80 17 112/60 (77) 99 12/26/18 21:41 100.2 12/26/18 21:41 100.2 12/26/18 21:00 Room Air 12/26/18 20:01 97 Nasal Cannula 2.0 28 12/26/18 20:00 101.1 88 18 117/58 (77) 97 12/26/18 18:30 93 112/61 (78) 12/26/18 17:47 112/61 12/26/18 16:09 157/70 12/26/18 16:00 98.4 85 20 157/70 (99) 97 12/26/18 12:00 99.1 80 18 151/75 (100) 97 Height (Feet): 5 Height (Inches): 5.00 Weight (Pounds): 136 Laboratory Tests Test 12/27/18 04:50 12/27/18 10:15 White Blood Count 12.6 K/UL (4.8-10.8) H Red Blood Count 3.07 M/UL (4.20-5.40) L Hemoglobin 9.3 G/DL (12.0-16.0) L Hematocrit 28.6 % (37.0-47.0) L Mean Corpuscular Volume 93 FL (80-99) Mean Corpuscular Hemoglobin 30.3 PG (27.0-31.0) Mean Corpuscular Hemoglobin Concent 32.5 G/DL (32.0-36.0) Red Cell Distribution Width 12.5 % (11.6-14.8) Platelet Count 411 K/UL (150-450) Mean Platelet Volume 6.6 FL (6.5-10.1) Neutrophils (%) (Auto) 83.9 % (45.0-75.0) H Lymphocytes (%) (Auto) 5.8 % (20.0-45.0) L Monocytes (%) (Auto) 7.5 % (1.0-10.0) Eosinophils (%) (Auto) 2.1 % (0.0-3.0) Basophils (%) (Auto) 0.7 % (0.0-2.0) Sodium Level 136 MMOL/L (136-145) Potassium Level 4.6 MMOL/L (3.5-5.1) Chloride Level 101 MMOL/L (98-107) Carbon Dioxide Level 26 MMOL/L (21-32) Anion Gap 9 mmol/L (5-15) Blood Urea Nitrogen 29 mg/dL (7-18) H Creatinine 1.2 MG/DL (0.55-1.30) Estimat Glomerular Filtration Rate 44.8 mL/min (>60) Glucose Level 175 MG/DL (74-106) H Calcium Level 9.9 MG/DL (8.5-10.1) Urine Color Yellow Urine Appearance Clear Urine pH 6 (4.5-8.0) Urine Specific [place] 1.015 (1.005-1.035) Urine Protein 2+ (NEGATIVE) H Urine Glucose (UA) Negative (NEGATIVE) Urine Ketones Negative (NEGATIVE) Urine Blood Negative (NEGATIVE) Urine Nitrite Negative (NEGATIVE) Urine Bilirubin Negative (NEGATIVE) Urine Urobilinogen Normal MG/DL (0.0-1.0) Urine Leukocyte Esterase Negative (NEGATIVE) Urine RBC 0 /HPF (0 - 2) Urine WBC 0 /HPF (0 - 2) Urine Squamous Epithelial Cells Occasional /LPF Urine Bacteria Occasional /HPF (NONE) Current Medications Medications (Trade) Dose Ordered Sig/Kajal Route PRN Reason Start Time Stop Time Status Last Admin Dose Admin Acetaminophen (Tylenol) 650 mg Q4H PRN ORAL Mild Pain/Temp > 100.2 12/26/18 21:00 01/25/19 20:59 12/26/18 21:11 Acetaminophen (Tylenol) 650 mg Q6H PRN ORAL headache 12/17/18 14:45 01/16/19 14:44 12/17/18 14:47 Barium Sulfate (Readi-Cat 2) 450 ml NOW PRN ORAL Radiology Procedure 12/26/18 08:15 12/28/18 08:10 Chlorhexidine Gluconate (Yulia-Hex 2%) 1 applic DAILY@2000 TOPIC 12/17/18 20:00 01/16/19 19:59 12/26/18 20:09 Clonidine HCl (Catapres Tab) 0.1 mg Q6H PRN SL SBP>150 mmHg 12/22/18 22:00 01/21/19 21:59 12/26/18 16:09 Dextrose 1,000 ml @ 0 mls/hr Q24H PRN IV PN interrupted or unavailable 12/20/18 20:00 01/19/19 19:59 Dextrose (Dextrose 50%) 25 ml Q30M PRN IV Hypoglycemia 12/22/18 12:45 01/21/19 12:44 Dextrose (Dextrose 50%) 50 ml Q30M PRN IV Hypoglycemia 12/22/18 12:45 01/21/19 12:44 Dextrose/ Electrolytes 1,000 ml @ 25 mls/hr Q24H IV 12/24/18 08:00 01/21/19 07:59 12/27/18 08:39 Fat Emulsion Intravenous 216 ml/Amino Acids/ Electrolytes/ Dextrose 1,776 ml @ 74 mls/hr Q24H IV 12/21/18 20:00 01/20/19 19:59 12/26/18 20:18 Hydromorphone HCl (Dilaudid) 0.5 mg Q4H PRN SUBQ Severe Breakthru Pain (>7) 12/23/18 08:30 12/30/18 08:29 12/27/18 03:24 Insulin Aspart (NovoLOG) Q6HR SUBQ 12/22/18 18:00 01/21/19 17:59 12/27/18 05:11 Levothyroxine Sodium (Synthroid) 125 mcg DAILY@0630 ORAL 12/18/18 06:30 01/17/19 06:29 12/27/18 06:36 Lisinopril (Prinivil) 40 mg BID ORAL 12/25/18 18:00 01/24/19 17:59 12/27/18 08:34 Metoprolol Succinate (Toprol XL) 25 mg DAILY ORAL 12/24/18 09:00 01/23/19 08:59 12/27/18 08:34 Miconazole Nitrate (Monistat) 1 applic BEDTIME VAGIN 12/27/18 21:00 01/26/19 20:59 Mycophenolate Mofetil (Cellcept) 750 mg Q12HR ORAL 12/25/18 09:00 01/24/19 08:59 12/27/18 08:33 Nystatin (Nystatin) 5 ml QID ORAL 12/27/18 09:00 01/03/19 08:59 12/27/18 09:11 Ondansetron HCl (Zofran) 4 mg Q6H PRN IVP Nausea & Vomiting 12/21/18 07:15 01/20/19 07:14 12/27/18 03:24 Oxycodone/ Acetaminophen (Percocet 10/325) 1 tab Q4H PRN ORAL For Pain 12/23/18 08:30 12/30/18 08:29 12/27/18 08:33 Pantoprazole (Protonix) 40 mg DAILY IVP 12/26/18 09:00 01/25/19 08:59 12/27/18 08:35 Prochlorperazine (Compazine) 10 mg Q6H PRN IVP Nausea & Vomiting 12/20/18 09:15 01/19/19 09:14 12/26/18 08:40 Tacrolimus (Prograf) 1 mg DAILY ORAL 12/19/18 09:00 01/18/19 08:59 12/27/18 08:33 Tacrolimus (Prograf) 2 mg BEDTIME ORAL 12/17/18 21:00 01/16/19 20:59 12/26/18 20:24 Trazodone HCl (Desyrel) 25 mg QHS PRN ORAL INSOMNIA 12/17/18 12:22 01/16/19 12:21 12/26/18 23:07 Philly Shelby MD Dec 27, 2018 12:02
[2018-12-27] MEDS ORDERED: Vancomycin 1.25gm/NS Premix IVPB ONE (13:00)
--- NOTE | 2018-12-27 13:30 | NUR ---
NURSE NOTES: [employer] form filled by [facility] nurse faxed by CN.
--- NOTE | 2018-12-27 13:30 | NUR ---
NURSE NOTES: AMBULATED OUT IN THE BAKER TOLERATED.
[2018-12-27] MEDS ORDERED: NS 275ml ONE (14:20)
[2018-12-27] MEDS ORDERED: Tubing IV Secondary IV ONE (14:20)
--- NOTE | 2018-12-27 14:59 | Diagnostic Imaging Report ---
EXAM: XR Chest, 1 View CLINICAL HISTORY: INFECT TECHNIQUE: Frontal view of the chest. COMPARISON: No relevant prior studies available. FINDINGS: Lungs: No consolidation. Pleural space: Unremarkable. No pneumothorax. Heart: Mild cardiomegaly. Mediastinum: Unremarkable. Bones/joints: No acute fracture. Other: Left PICC line near the atrial caval junction. IMPRESSION: No acute cardiopulmonary disease.
[2018-12-27 16:00] VITALS: BP 141/65
--- NOTE | 2018-12-27 16:36 | NUR ---
NURSE NOTES: medicated for pain scale 810 given dilaudid 0.5mg subq as ordered. will continue to monitor pt. Addendum: 12/27/18 at 1645 by NIDA HUGHES RN pain scale 8/10. medicated as ordered.
--- NOTE | 2018-12-27 16:44 | NUR ---
HAND-OFF: Report given to jason obrien rn.
--- NOTE | 2018-12-27 16:45 | General Progress Note ---
Assessment/Plan Status: unchanged Assessment/Plan: Assessment/Plan (1) Malfunctioning Kock Pouch - s/p Yajaira ileostomy (2) History of liver transplant (3) Rising WBC concerning (4) Distended loop of bowel in pelvis on CT Other 1. Malfunctioning Kock pouch continent ileostomy with increasing difficulty with intubation and increasing incontinence of stool and gas. 2. History of ulcerative colitis. 3. History of primary sclerosing cholangitis. 4. s/p failed Kock pouch resection and creation of Yajaira ileostomy 4.1. Proctocolectomy and Kock pouch continent ileostomy in 1978. 4.2. Total abdominal hysterectomy and bilateral salpingo-oophorectomy in 1983. 4.3. Appendectomy age 15. 4.4. Cholecystectomy in 1985. 4.5. Liver transplantation in 1999. 4.6. Laparotomy with revision of Kock pouch and repair of pouch cutaneous fistula in 2010. Recommendations clear liquid diet continue zosyn monitor tacrolimus levels,increase the dose to 3 gm per day(spoke with pharmacy) zofran prn, compazine prn fu LFTs endoscopy if necessary on TPN cellcept 750 BID prograft 3 gm per day monitor for lytes protonix surgical F/u re CT results Subjective Allergies: Coded Allergies: CODEINE (Verified Allergy, Severe, 12/17/18) Face contractions HYDROMORPHONE (Verified Allergy, Severe, Itching, 12/17/18) Itching whole body METOCLOPRAMIDE (Verified Allergy, Severe, 12/17/18) Face contractions MORPHINE (Verified Allergy, Severe, Shortness of Breath, 12/17/18) SULFA (SULFONAMIDE ANTIBIOTICS) (Verified Allergy, Severe, 12/17/18) Face contractions Subjective Feels well no abd pain Objective Last 24 Hour Vital Signs Date Time Temp Pulse Resp B/P (MAP) Pulse Ox O2 Delivery O2 Flow Rate FiO2 12/27/18 13:30 97.8 12/27/18 12:00 98.9 83 18 112/64 (80) 97 12/27/18 09:17 Room Air 12/27/18 08:34 140/67 12/27/18 08:34 83 140/67 12/27/18 08:00 98.9 83 18 140/67 (91) 96 12/27/18 04:00 97.8 83 17 133/63 (86) 99 12/27/18 00:00 97.7 80 17 112/60 (77) 99 12/26/18 21:41 100.2 12/26/18 21:41 100.2 12/26/18 21:00 Room Air 12/26/18 20:01 97 Nasal Cannula 2.0 28 12/26/18 20:00 101.1 88 18 117/58 (77) 97 12/26/18 18:30 93 112/61 (78) 12/26/18 17:47 112/61 Intake and Output 12/26/18 12/27/18 18:59 06:59 Intake Total 1638 ml 1040 ml Output Total 2225 ml 1525 ml Balance -587 ml -485 ml Intake Oral 450 ml IV Total 1188 ml 1040 ml Output Urine Total 1150 ml 775 ml Stool Total 750 ml Other 1075 ml Laboratory Tests 12/27/18 04:50: White Blood Count 12.6H, Red Blood Count 3.07L, Hemoglobin 9.3L, Hematocrit 28.6L, Mean Corpuscular Volume 93, Mean Corpuscular Hemoglobin 30.3, Mean Corpuscular Hemoglobin Concent 32.5, Red Cell Distribution Width 12.5, Platelet Count 411, Mean Platelet Volume 6.6, Neutrophils (%) (Auto) 83.9H, Lymphocytes ( %) (Auto) 5.8L, Monocytes (%) (Auto) 7.5, Eosinophils (%) (Auto) 2.1, Basophils (%) (Auto) 0.7, Sodium Level 136, Potassium Level 4.6, Chloride Level 101, Carbon Dioxide Level 26, Anion Gap 9, Blood Urea Nitrogen 29H, Creatinine 1.2, Estimat Glomerular Filtration Rate 44.8, Glucose Level 175H, Calcium Level 9.9 12/27/18 10:15: Urine Color Yellow, Urine Appearance Clear, Urine pH 6, Urine Specific [place] 1.015, Urine Protein 2+H, Urine Glucose (UA) Negative, Urine Ketones Negative, Urine Blood Negative, Urine Nitrite Negative, Urine Bilirubin Negative, Urine Urobilinogen Normal, Urine Leukocyte Esterase Negative, Urine RBC 0, Urine WBC 0 , Urine Squamous Epithelial Cells Occasional, Urine Bacteria Occasional Height (Feet): 5 Height (Inches): 5.00 Weight (Pounds): 136 Objective WDWN NCAT supple CTA RR abd soft ND NT no edema Simba Cardona MD Dec 27, 2018 16:45
--- NOTE | 2018-12-27 16:45 | NUR ---
NURSE NOTES: Received report from Milady NGUYEN. Patient lying in bed awake. Complain of pain 8/10 on abdomen and pain medication given as ordered. Will continue to monitor. Ileostomy bag dry and intact. PICC line dressing intact and dry. Bed lowest position. Call light within reach. Will continue to monitor.
--- NOTE | 2018-12-27 19:30 | NUR ---
HAND-OFF: Report given to Dallin NGUYEN. Patient in stable condition.
--- NOTE | 2018-12-27 19:30 | NUR ---
NURSE NOTES: Received report from PATRICK Ortiz and rounds made with outgoing nurse. Received pt in bed, AOx4, denies any pain, no distress noted. Colostomy bag intact no leakage noted. Piccline patent and intact. IV fluid and TPN infusing as ordered. Bed in lowest position and locked, side rails up x 2, call light within reach. Will continue to monitor.
--- NOTE | 2018-12-27 19:56 | NUR ---
NURSE NOTES: Complain of generalize itchiness. No Bendaryl ordered. Paged Dr. Sotomayor, awaiting for call back.
[2018-12-27 20:00] VITALS: BP 121/65
--- NOTE | 2018-12-27 20:15 | NUR ---
NURSE NOTES: Dr. Sotomayor called back order given for Benadryl, order read back and verified. Will carry out order.
[2018-12-27] MEDS: Dyna-Hex 2% Top Sol 2oz TOPIC SCH (20:23)
[2018-12-27] MEDS: TraZODone HCl 25 mg tablet ORAL PRN (20:24)
[2018-12-27] MEDS: Miconazole Vag Cr 45gm Tube (100mg per applicator) VAGIN SCH (20:24)
[2018-12-27] MEDS: Fat Emulsion Iv 20% 216 ML in Tpn 1,560 ML IV SCH (20:24)
--- NOTE | 2018-12-27 23:19 | Cardiology Progress Note ---
Assessment/Plan Status Narrative 1. Malfunctioning Kock pouch continent ileostomy. 2. History of ulcerative colitis. 3. History of primary sclerosing cholangitis. 4. Status post multiple abdominal operations. 4.1. Appendectomy in 1964. 4.2. Proctocolectomy and Kock pouch in 1978. 4.3. Total abdominal hysterectomy and bilateral salpingo-oophorectomy 1983 4.4. Cholecystectomy in 1985. 4.5. Orthotopic liver transplantation in 1999. 4.6. Revision of Kock pouch and repair of fistula in 2010. HTN- New onset-improved with meds Tachycardia- improved with IV Fluids and Beta Blockers. Assessment/Plan Clonidine ).1 mg Q6h PRN Metoprolol 25 mg QD Zestril 40 mg BID. If BP remains high, will increase Metoprolol IV at 25 cc/h pain management.\ Monitor clinical picture- Advance diet as per Dr. Sotomayor Subjective Cardiovascular: Reports: no symptoms Respiratory: Reports: no symptoms Gastrointestinal/Abdominal: Reports: abdomen distended, abdominal pain Genitourinary: Reports: no symptoms Subjective Had Temp 101 last nite On Lisinopril 40 mg BID and Metoprolol. Objective Last 24 Hour Vital Signs Date Time Temp Pulse Resp B/P (MAP) Pulse Ox O2 Delivery O2 Flow Rate FiO2 12/27/18 21:00 Room Air 12/27/18 20:00 99.0 86 18 121/65 (83) 97 12/27/18 17:46 141/65 12/27/18 16:00 98.6 80 18 141/65 (90) 98 12/27/18 13:30 97.8 12/27/18 12:00 98.9 83 18 112/64 (80) 97 12/27/18 09:17 Room Air 12/27/18 08:34 140/67 12/27/18 08:34 83 140/67 12/27/18 08:00 98.9 83 18 140/67 (91) 96 12/27/18 04:00 97.8 83 17 133/63 (86) 99 12/27/18 00:00 97.7 80 17 112/60 (77) 99 Cardiovascular: normal rate, regular rhythm, no gallop/murmur Respiratory/Chest: lungs clear Abdomen: soft, decreased bowel sounds, distended, tender Extremities: non-tender, normal inspection, no calf tenderness, no swelling Intake and Output 12/26/18 12/27/18 19:00 07:00 Intake Total 1638 ml 1040 ml Output Total 2225 ml 1525 ml Balance -587 ml -485 ml Intake Oral 450 ml IV Total 1188 ml 1040 ml Output Urine Total 1150 ml 775 ml Stool Total 750 ml Other 1075 ml Laboratory Tests Test 12/27/18 04:50 12/27/18 10:15 White Blood Count 12.6 K/UL (4.8-10.8) H Red Blood Count 3.07 M/UL (4.20-5.40) L Hemoglobin 9.3 G/DL (12.0-16.0) L Hematocrit 28.6 % (37.0-47.0) L Mean Corpuscular Volume 93 FL (80-99) Mean Corpuscular Hemoglobin 30.3 PG (27.0-31.0) Mean Corpuscular Hemoglobin Concent 32.5 G/DL (32.0-36.0) Red Cell Distribution Width 12.5 % (11.6-14.8) Platelet Count 411 K/UL (150-450) Mean Platelet Volume 6.6 FL (6.5-10.1) Neutrophils (%) (Auto) 83.9 % (45.0-75.0) H Lymphocytes (%) (Auto) 5.8 % (20.0-45.0) L Monocytes (%) (Auto) 7.5 % (1.0-10.0) Eosinophils (%) (Auto) 2.1 % (0.0-3.0) Basophils (%) (Auto) 0.7 % (0.0-2.0) Sodium Level 136 MMOL/L (136-145) Potassium Level 4.6 MMOL/L (3.5-5.1) Chloride Level 101 MMOL/L (98-107) Carbon Dioxide Level 26 MMOL/L (21-32) Anion Gap 9 mmol/L (5-15) Blood Urea Nitrogen 29 mg/dL (7-18) H Creatinine 1.2 MG/DL (0.55-1.30) Estimat Glomerular Filtration Rate 44.8 mL/min (>60) Glucose Level 175 MG/DL (74-106) H Calcium Level 9.9 MG/DL (8.5-10.1) Urine Color Yellow Urine Appearance Clear Urine pH 6 (4.5-8.0) Urine Specific [place] 1.015 (1.005-1.035) Urine Protein 2+ (NEGATIVE) H Urine Glucose (UA) Negative (NEGATIVE) Urine Ketones Negative (NEGATIVE) Urine Blood Negative (NEGATIVE) Urine Nitrite Negative (NEGATIVE) Urine Bilirubin Negative (NEGATIVE) Urine Urobilinogen Normal MG/DL (0.0-1.0) Urine Leukocyte Esterase Negative (NEGATIVE) Urine RBC 0 /HPF (0 - 2) Urine WBC 0 /HPF (0 - 2) Urine Squamous Epithelial Cells Occasional /LPF Urine Bacteria Occasional /HPF (NONE) Micha Ziegler MD Dec 27, 2018 23:19
[2018-12-28] VITALS: BP 115/77
--- NOTE | 2018-12-28 01:42 | NUR ---
NURSE NOTES: Complain of indigestion. No indigestion medication order. Per pt, she doesn't want me to wake up Dr. Sotomayor to get order for indigestion. Instructed pt to call if indigestion gets worse. Pt verbalized instruction. Will continue to monitor.
[2018-12-28] MEDS: HYDROmorphone 1mg/ml Carpuject SUBQ PRN ×3 (03:16→20:07)
[2018-12-28 04:00] VITALS: BP 153/75
[2018-12-28 05:12] LABS: BASOPHILS % (AUTO) 0.5 % (0.0-2.0); EOSINOPHILS % (AUTO) 2.6 % (0.0-3.0); HEMATOCRIT 26.5 % (37.0-47.0); HEMOGLOBIN 8.6 G/DL (12.0-16.0); LYMPHOCYTES % (AUTO) 5.8 % (20.0-45.0); MEAN CORPUSCULAR VOLUME 92 FL (80-99); MONOCYTES % (AUTO) 7.4 % (1.0-10.0); NEUTROPHILS % (AUTO) 83.7 % (45.0-75.0); PLATELET COUNT 476 K/UL (150-450); RED BLOOD COUNT 2.88 M/UL (4.20-5.40); RED CELL DISTRIBUTION WIDTH 12.5 % (11.6-14.8); WHITE BLOOD COUNT 11.8 K/UL (4.8-10.8)
[2018-12-28 05:31] LABS: ALANINE AMINOTRANSFERASE 21 U/L (12-78); ALBUMIN 1.7 G/DL (3.4-5.0); ALBUMIN/GLOBULIN RATIO 0.4 (1.0-2.7); ALKALINE PHOSPHATASE 344 U/L (46-116); ANION GAP 8 mmol/L (5-15); ASPARTATE AMINO TRANSFERASE 11 U/L (15-37); BILIRUBIN,TOTAL 0.4 MG/DL (0.2-1.0); BLOOD UREA NITROGEN 25 mg/dL (7-18); CALCIUM 9.6 MG/DL (8.5-10.1); CARBON DIOXIDE 23 MMOL/L (21-32); CHLORIDE 101 MMOL/L (98-107); CREATININE 1.2 MG/DL (0.55-1.30); POTASSIUM 4.4 MMOL/L (3.5-5.1); SODIUM 132 MMOL/L (136-145)
[2018-12-28] MEDS: NovoLOG Insulin Flexpen SUBQ SCH ×3 (06:12→17:42)
[2018-12-28] MEDS: Levothyroxine 125mcg tab ORAL SCH (06:19)
--- NOTE | 2018-12-28 07:25 | NUR ---
HAND-OFF: Report given to PATRICK Maria. Pt in stable condition.
--- NOTE | 2018-12-28 07:29 | NUR ---
NURSE NOTES: Received report from PATRICK Zamarripa. Rounding done with outgoing nurse. Pt a/o x 4, in bedside commode. No respiratory distress noted. Denies any pain at this time. MARILY PICC line is in placed, secured. D51/2NS with KCL 40 running @ 25ml/hr and TPN @ 74ml/hr. Ileostomy bag is not leaking. Bed in lowest position, call light within reach. Will continue to monitor.
[2018-12-28 08:00] VITALS: BP 120/56
[2018-12-28] MEDS: Metoprolol Succinate XL 25mg tab ORAL SCH (08:49)
[2018-12-28] MEDS: Nystatin Susp 500,000 units/5ml ORAL SCH ×4 (08:49→20:06)
[2018-12-28] MEDS: Pantoprazole Inj IVP SCH (08:49)
[2018-12-28] MEDS: Mycophenolate 250mg cap ORAL SCH ×2 (08:50→20:06)
[2018-12-28] MEDS: Lisinopril 20mg tab ORAL SCH ×2 (08:50→17:38)
--- NOTE | 2018-12-28 09:42 | General Progress Note ---
Progress Note Progress Note Afebrile x 36 hours. Feels better and tolerating clear liquids 1200cc/24 hours. Now on Vanco and Zosyn Abdomen remains somewhat distended, incisions healing nicely, stoma with retraction superior margin Urine 1600 Ileostomy 1040 WBC 11,800 Platelets up 476,000 BUN down 25 Cr 1.2 Alk phos slowly rising - likely due to TPN Albumin remains quite low U/A - wnl Imp. Fever and leukocytosis ? intra-abdominal vs PIC related Persistent abdominal distention without evidence of obstruction by CT scan ? dilated loop Plan: Continue antibiotics, TPN, clear liquid diet, ileostomy care May need f/u CT scan abd+pelvis with oral contrast Lars Sotomayor MD Dec 28, 2018 09:41
--- NOTE | 2018-12-28 10:30 | NUR ---
NURSE NOTES: Patient ambulated hallway x1. No distress noted.
[2018-12-28 12:00] VITALS: BP 133/68
--- NOTE | 2018-12-28 12:45 | Cardiology Progress Note ---
Assessment/Plan Status Narrative 1. Malfunctioning Kock pouch continent ileostomy. 2. History of ulcerative colitis. 3. History of primary sclerosing cholangitis. 4. Status post multiple abdominal operations. 4.1. Appendectomy in 1964. 4.2. Proctocolectomy and Kock pouch in 1978. 4.3. Total abdominal hysterectomy and bilateral salpingo-oophorectomy 1983 4.4. Cholecystectomy in 1985. 4.5. Orthotopic liver transplantation in 1999. 4.6. Revision of Kock pouch and repair of fistula in 2010. HTN- New onset-improved with meds Tachycardia- improved with IV Fluids and Beta Blockers. Assessment/Plan Clonidine 0.1 mg Q6h PRN Metoprolol 25 mg QD Zestril 40 mg BID. If BP remains high, will increase Metoprolol pain management.\ Encouraged increased ambulation. Subjective Cardiovascular: Reports: no symptoms Respiratory: Reports: no symptoms Gastrointestinal/Abdominal: Reports: abdomen distended Genitourinary: Reports: no symptoms Subjective Started on ABx. Tolerating PO liquids. Feeling better Objective Last 24 Hour Vital Signs Date Time Temp Pulse Resp B/P (MAP) Pulse Ox O2 Delivery O2 Flow Rate FiO2 12/28/18 09:00 Room Air 12/28/18 08:50 120/56 12/28/18 08:49 86 120/56 12/28/18 08:00 98.4 86 18 120/56 (77) 98 12/28/18 04:00 99.3 91 17 153/75 (101) 98 12/28/18 00:00 98.4 83 17 115/77 (90) 98 12/27/18 21:00 Room Air 12/27/18 20:00 99.0 86 18 121/65 (83) 97 12/27/18 17:46 141/65 12/27/18 16:00 98.6 80 18 141/65 (90) 98 12/27/18 13:30 97.8 Cardiovascular: normal rate, regular rhythm, no gallop/murmur Respiratory/Chest: lungs clear Abdomen: soft, hypoactive bowel sounds, distended, tender Extremities: non-tender, normal inspection, no calf tenderness, no swelling Intake and Output 12/27/18 12/28/18 19:00 07:00 Intake Total 1902 ml 1635 ml Output Total 1265 ml 1375 ml Balance 637 ml 260 ml Intake Oral 736 ml 520 ml IV Total 1166 ml 1115 ml Output Urine Total 800 ml 800 ml Other 465 ml 575 ml # Voids 1 Laboratory Tests Test 12/28/18 04:40 White Blood Count 11.8 K/UL (4.8-10.8) H Red Blood Count 2.88 M/UL (4.20-5.40) L Hemoglobin 8.6 G/DL (12.0-16.0) L Hematocrit 26.5 % (37.0-47.0) L Mean Corpuscular Volume 92 FL (80-99) Mean Corpuscular Hemoglobin 29.9 PG (27.0-31.0) Mean Corpuscular Hemoglobin Concent 32.4 G/DL (32.0-36.0) Red Cell Distribution Width 12.5 % (11.6-14.8) Platelet Count 476 K/UL (150-450) H Mean Platelet Volume 6.5 FL (6.5-10.1) Neutrophils (%) (Auto) 83.7 % (45.0-75.0) H Lymphocytes (%) (Auto) 5.8 % (20.0-45.0) L Monocytes (%) (Auto) 7.4 % (1.0-10.0) Eosinophils (%) (Auto) 2.6 % (0.0-3.0) Basophils (%) (Auto) 0.5 % (0.0-2.0) Sodium Level 132 MMOL/L (136-145) L Potassium Level 4.4 MMOL/L (3.5-5.1) Chloride Level 101 MMOL/L (98-107) Carbon Dioxide Level 23 MMOL/L (21-32) Anion Gap 8 mmol/L (5-15) Blood Urea Nitrogen 25 mg/dL (7-18) H Creatinine 1.2 MG/DL (0.55-1.30) Estimat Glomerular Filtration Rate 44.8 mL/min (>60) Glucose Level 169 MG/DL (74-106) H Calcium Level 9.6 MG/DL (8.5-10.1) Total Bilirubin 0.4 MG/DL (0.2-1.0) Aspartate Amino Transf (AST/SGOT) 11 U/L (15-37) L Alanine Aminotransferase (ALT/SGPT) 21 U/L (12-78) Alkaline Phosphatase 344 U/L (46-116) H Total Protein 6.3 G/DL (6.4-8.2) L Albumin 1.7 G/DL (3.4-5.0) L Globulin 4.6 g/dL Albumin/Globulin Ratio 0.4 (1.0-2.7) L Microbiology Date/Time Source Procedure Growth Status 12/27/18 10:15 Urine,Clean Catch Urine Culture - Preliminary NO GROWTH Resulted Micha Ziegler MD Dec 28, 2018 12:45
[2018-12-28] MEDS: Vancomycin 1gm/D5W 275ml IVPB SCH ×2 (13:24)
--- NOTE | 2018-12-28 14:00 | NUR ---
NURSE NOTES: Patient ambulated hallway x2, stable condition.
--- NOTE | 2018-12-28 15:28 | Cardiology Report ---
APPROVED REPORT EKG Measurement Heart [id number] Normal sinus rhythm Normal ECG
--- NOTE | 2018-12-28 15:33 | Infectious Diseases Prog Note ---
Assessment/Plan Assessment/Plan Full consult dictated: A) 1) fevers, leukocytosis, ? sepsis 2) + picc line, TPN 3) CT noted - no definitive abscess described 4) s/p failed Kock pouch resection and creation of Yajaira ileostomy 5) allergies - sulfa allergy noted P) 1) zosyn, vancomycin 2) f/u on cultures, labs, may need f/u CT 3) will f/u Subjective Constitutional: Denies: fever HEENT: Denies: congestion Respiratory: Denies: shortness of breath Cardiovascular: Denies: chest pain Gastrointestinal/Abdominal: Denies: nausea Allergies: Coded Allergies: CODEINE (Verified Allergy, Severe, 12/17/18) Face contractions HYDROMORPHONE (Verified Allergy, Severe, Itching, 12/17/18) Itching whole body METOCLOPRAMIDE (Verified Allergy, Severe, 12/17/18) Face contractions MORPHINE (Verified Allergy, Severe, Shortness of Breath, 12/17/18) SULFA (SULFONAMIDE ANTIBIOTICS) (Verified Allergy, Severe, 12/17/18) Face contractions Objective Vital Signs Last 24 Hour Vital Signs Date Time Temp Pulse Resp B/P (MAP) Pulse Ox O2 Delivery O2 Flow Rate FiO2 12/28/18 12:00 98.5 90 18 133/68 (89) 98 12/28/18 09:00 Room Air 12/28/18 08:50 120/56 12/28/18 08:49 86 120/56 12/28/18 08:00 98.4 86 18 120/56 (77) 98 12/28/18 04:00 99.3 91 17 153/75 (101) 98 12/28/18 00:00 98.4 83 17 115/77 (90) 98 12/27/18 21:00 Room Air 12/27/18 20:00 99.0 86 18 121/65 (83) 97 12/27/18 17:46 141/65 12/27/18 16:00 98.6 80 18 141/65 (90) 98 Height (Feet): 5 Height (Inches): 5.00 Weight (Pounds): 136 General Appearance: no acute distress HEENT: normocephalic, atraumatic, anicteric Respiratory/Chest: lungs clear, normal breath sounds, no respiratory distress Cardiovascular: normal rate, regular rhythm Abdomen: normal bowel sounds, soft, non tender, no organomegaly Microbiology Date/Time Source Procedure Growth Status 12/27/18 10:15 Urine,Clean Catch Urine Culture - Preliminary NO GROWTH Resulted Laboratory Tests Test 12/28/18 04:40 White Blood Count 11.8 K/UL (4.8-10.8) H Red Blood Count 2.88 M/UL (4.20-5.40) L Hemoglobin 8.6 G/DL (12.0-16.0) L Hematocrit 26.5 % (37.0-47.0) L Mean Corpuscular Volume 92 FL (80-99) Mean Corpuscular Hemoglobin 29.9 PG (27.0-31.0) Mean Corpuscular Hemoglobin Concent 32.4 G/DL (32.0-36.0) Red Cell Distribution Width 12.5 % (11.6-14.8) Platelet Count 476 K/UL (150-450) H Mean Platelet Volume 6.5 FL (6.5-10.1) Neutrophils (%) (Auto) 83.7 % (45.0-75.0) H Lymphocytes (%) (Auto) 5.8 % (20.0-45.0) L Monocytes (%) (Auto) 7.4 % (1.0-10.0) Eosinophils (%) (Auto) 2.6 % (0.0-3.0) Basophils (%) (Auto) 0.5 % (0.0-2.0) Sodium Level 132 MMOL/L (136-145) L Potassium Level 4.4 MMOL/L (3.5-5.1) Chloride Level 101 MMOL/L (98-107) Carbon Dioxide Level 23 MMOL/L (21-32) Anion Gap 8 mmol/L (5-15) Blood Urea Nitrogen 25 mg/dL (7-18) H Creatinine 1.2 MG/DL (0.55-1.30) Estimat Glomerular Filtration Rate 44.8 mL/min (>60) Glucose Level 169 MG/DL (74-106) H Calcium Level 9.6 MG/DL (8.5-10.1) Total Bilirubin 0.4 MG/DL (0.2-1.0) Aspartate Amino Transf (AST/SGOT) 11 U/L (15-37) L Alanine Aminotransferase (ALT/SGPT) 21 U/L (12-78) Alkaline Phosphatase 344 U/L (46-116) H Total Protein 6.3 G/DL (6.4-8.2) L Albumin 1.7 G/DL (3.4-5.0) L Globulin 4.6 g/dL Albumin/Globulin Ratio 0.4 (1.0-2.7) L Current Medications Medications (Trade) Dose Ordered Sig/Kajal Route PRN Reason Start Time Stop Time Status Last Admin Dose Admin Acetaminophen (Tylenol) 650 mg Q4H PRN ORAL Mild Pain/Temp > 100.2 12/26/18 21:00 01/25/19 20:59 12/26/18 21:11 Acetaminophen (Tylenol) 650 mg Q6H PRN ORAL headache 12/17/18 14:45 01/16/19 14:44 12/17/18 14:47 Al Hydroxide/Mg Hydroxide (Mylanta) 30 ml Q6H PRN ORAL dyspepsia 12/28/18 09:30 01/27/19 09:29 12/28/18 11:51 Chlorhexidine Gluconate (Yulia-Hex 2%) 1 applic DAILY@2000 TOPIC 12/17/18 20:00 01/16/19 19:59 12/27/18 20:23 Clonidine HCl (Catapres Tab) 0.1 mg Q6H PRN SL SBP>150 mmHg 12/22/18 22:00 01/21/19 21:59 12/26/18 16:09 Dextrose 1,000 ml @ 0 mls/hr Q24H PRN IV PN interrupted or unavailable 12/20/18 20:00 01/19/19 19:59 Dextrose (Dextrose 50%) 25 ml Q30M PRN IV Hypoglycemia 12/22/18 12:45 01/21/19 12:44 Dextrose (Dextrose 50%) 50 ml Q30M PRN IV Hypoglycemia 12/22/18 12:45 01/21/19 12:44 Dextrose/ Electrolytes 1,000 ml @ 25 mls/hr Q24H IV 12/24/18 08:00 01/21/19 07:59 12/27/18 23:27 Diphenhydramine HCl (Benadryl) 50 mg Q4H PRN ORAL Itching 12/27/18 20:00 01/26/19 19:59 12/27/18 20:37 Fat Emulsion Intravenous 216 ml/Amino Acids/ Electrolytes/ Dextrose 1,776 ml @ 74 mls/hr Q24H IV 12/21/18 20:00 01/20/19 19:59 12/27/18 20:24 Hydromorphone HCl (Dilaudid) 0.5 mg Q4H PRN SUBQ Severe Breakthru Pain (>7) 12/23/18 08:30 12/30/18 08:29 12/28/18 09:05 Insulin Aspart (NovoLOG) Q6HR SUBQ 12/22/18 18:00 01/21/19 17:59 12/28/18 12:23 Levothyroxine Sodium (Synthroid) 125 mcg DAILY@0630 ORAL 12/18/18 06:30 01/17/19 06:29 12/28/18 06:19 Lisinopril (Prinivil) 40 mg BID ORAL 12/25/18 18:00 01/24/19 17:59 12/28/18 08:50 Metoprolol Succinate (Toprol XL) 25 mg DAILY ORAL 12/24/18 09:00 01/23/19 08:59 12/28/18 08:49 Miconazole Nitrate (Monistat) 1 applic BEDTIME VAGIN 12/27/18 21:00 01/26/19 20:59 12/27/18 20:24 Mycophenolate Mofetil (Cellcept) 750 mg Q12HR ORAL 12/25/18 09:00 01/24/19 08:59 12/28/18 08:50 Nystatin (Nystatin) 5 ml QID ORAL 12/27/18 09:00 01/03/19 08:59 12/28/18 13:24 Ondansetron HCl (Zofran) 4 mg Q6H PRN IVP Nausea & Vomiting 12/21/18 07:15 01/20/19 07:14 12/28/18 03:09 Oxycodone/ Acetaminophen (Percocet 10325) 1 tab Q4H PRN ORAL pain 4-10 12/28/18 12:30 01/04/19 12:29 12/28/18 11:52 Pantoprazole (Protonix) 40 mg DAILY IVP 12/26/18 09:00 01/25/19 08:59 12/28/18 08:49 Piperacillin Sod/ Tazobactam Sod 3.375 gm/Dextrose 100 ml @ 25 mls/hr EVERY 8 HOURS IVPB 12/27/18 14:00 01/01/19 13:59 12/28/18 15:02 Prochlorperazine (Compazine) 10 mg Q6H PRN IVP Nausea & Vomiting 12/20/18 09:15 01/19/19 09:14 12/26/18 08:40 Tacrolimus (Prograf) 1 mg DAILY ORAL 12/19/18 09:00 01/18/19 08:59 12/28/18 08:50 Tacrolimus (Prograf) 2 mg BEDTIME ORAL 12/17/18 21:00 01/16/19 20:59 12/27/18 20:24 Trazodone HCl (Desyrel) 25 mg QHS PRN ORAL INSOMNIA 12/17/18 12:22 01/16/19 12:21 12/27/18 20:24 Vancomycin HCl (Vanco rx to dose) 1 ea DAILY PRN MISC Per rx protocol 12/27/18 11:45 01/26/19 11:44 Vancomycin HCl 1 gm/Dextrose 275 ml @ 183.708 mls/hr Q24H IVPB 12/28/18 13:00 01/02/19 12:59 12/28/18 13:24 Philly Shelby MD Dec 28, 2018 15:33
[2018-12-28 16:00] VITALS: BP 133/65
--- NOTE | 2018-12-28 17:20 | NUR ---
NURSE NOTES: Patient ambulated hallway x1, no distress noted.
--- NOTE | 2018-12-28 18:15 | Consultation ---
DATE OF CONSULTATION: 12/28/2018 INFECTIOUS DISEASES CONSULTATION CONSULTING PHYSICIAN: Philly Shelby M.D. ATTENDING PHYSICIAN: Lars Sotomayor M.D. REFERRING PHYSICIAN: Lars Sotomayor M.D. REASON FOR CONSULTATION: Fevers, leukocytosis, rule out occult sepsis, possible line infection, possible intra-abdominal abscess. CHIEF COMPLAINT: The patient's chief complaint coming into the hospital is malfunction Kock pouch. HISTORY OF PRESENT ILLNESS: This is a very pleasant 68-year-old female old female who comes in with malfunctioning Kock pouch. The patient was admitted and is now status post failed Kock pouch resection and creation of Yajaira ileostomy. Surgery was done on looks like 12/18/2018. The patient now is febrile, elevated white count, concern for infection, and occult sepsis. The patient had a CT scan of the abdomen and pelvis on 12/26/2018 which showed distended unopacified loop of bowel which did not appear to be an abscess. Report was noted. Infectious Diseases consultation requested for fevers. Elevated white count, concern for possible sepsis. I saw the patient yesterday, started on vancomycin and Zosyn. Currently, today she is afebrile. She developed leukocytosis. Blood cultures are pending. Urine culture negative. UA negative. Chest x-ray negative. Continue on vancomycin and Zosyn for now. REVIEW OF SYSTEMS: The patient is status post Yajaira ileostomy. She did have fevers yesterday but none today. No chills. She has generalized fatigue. No focal weakness. She is alert and responsive. HEAD AND NECK: No head pain or neck pain. CARDIAC: No chest pain. GASTROINTESTINAL: No significant abdominal pain. She has ileostomy. GENITOURINARY: She has no Pickett. PULMONARY: No shortness of breath, cough, sputum production. SKIN: No rash NEUROLOGIC: No seizures. PAST MEDICAL HISTORY: The patient's past medical history includes history of of following, the patient has a past medical history of Kock pouch. She has history of ulcerative colitis. She has history of proctocolectomy with subsequent Kock pouch, ulcerative colitis, history of primary sclerosing cholangitis, history of liver transplantation, history of appendectomy, cholecystectomy, hysterectomy, history of multiple abdominal surgeries. ALLERGIES: Include codeine, hydromorphone, metoclopramide, morphine, sulfa. FAMILY HISTORY: Noncontributory. SOCIAL HISTORY: Negative for smoking, alcohol, drug abuse. MEDICATIONS: Upon reviewing the MAR, she is on following medications. She is on vancomycin, Zosyn, nystatin, acetaminophen, diphenhydramine, lisinopril, mycophenolate or CellCept, Toprol, hydromorphone, insulin, Zofran, Compazine, Prograf, Synthroid. Outside medications noted and reconciliated. PHYSICAL EXAMINATION: VITAL SIGNS: Temperature is 98.5, pulse rate 90, respiratory rate 18, blood pressure 133/60, O2 saturation 98%. T-max yesterday was 101.1. GENERAL: Alert and responsive, oriented x3, no acute distress. HEAD AND NECK: Oral examination, no thrush. Eye exam, no icterus. Neck is supple. No JVD. Normocephalic. HEART: Regular. No gallop or murmur. ABDOMEN: Soft. Positive bowel sounds. Nontender. No rebound. No significant discomfort on abdominal examination. She has an ileostomy. LUNGS: Clear bilateral. No rhonchi or rales. HEART: Regular. No gallop or murmur. SKIN: No rashes. MUSCULOSKELETAL: No effusion. Legs are without cellulitis. PERIPHERAL VASCULAR: No cyanosis. GENITOURINARY: No Pickett. No CVA tenderness. NEUROLOGIC: Intact. Alert oriented x3. PERIPHERAL VASCULAR: No gangrene. LINE SITES: Without phlebitis. She has a PICC line. LABORATORY DATA: White count 11.8, hemoglobin 8.6. White count yesterday 12.6. Creatinine is 1.2. LFTs were noted. UA was negative. Urine culture negative. Blood cultures pending. Chest x-ray showed no acute disease. CT scan of the abdomen and pelvis from 12/26/2018 showed unusual markers, distended unopacified loop of bowel does not be appear like an abscess, report was noted. ASSESSMENT AND PLAN: 1. The patient has fevers, leukocytosis, questionable underlying sepsis, questionable line infection, questionable intra-abdominal abscess. CT without any definitive abscess. Questionable other intra-abdominal source of infection and possible sepsis. The patient was started empirically on vancomycin and Zosyn for MRSA and gram-negative coverage, anaerobic coverage. Continue vancomycin and Zosyn for possible sepsis, fevers, leukocytosis. Pending workup. Check blood cultures to rule out line infection and followup CT may be needed to rule out any intra-abdominal process. 2. 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 3. Liver transplantation. 4. Sclerosing cholangitis. 5. Ulcerative colitis. 6. The patient is anemic. 7. History of cholecystectomy, appendectomy, hysterectomy, and proctocolectomy. 8. History of multiple abdominal operations. 9. Allergies to codeine, hydromorphone, metoclopramide, morphine, and sulfa. 10. Family doctor is Noncontributory. 11. Social history is negative. 12. MAR was noted. 13. Case discussed with RN. 14. Case discussed with the patient. 15. Continue treatment per Dr. Sotomayor and consultants. Philly Shelby M.D. DR: Sahara JOB#: [id number] CC:
--- NOTE | 2018-12-28 19:12 | General Progress Note ---
Assessment/Plan Status: unchanged Assessment/Plan: Assessment/Plan (1) Malfunctioning Kock Pouch - s/p Yajaira ileostomy (2) History of liver transplant (3) Rising WBC concerning (4) Distended loop of bowel in pelvis on CT Other 1. Malfunctioning Kock pouch continent ileostomy with increasing difficulty with intubation and increasing incontinence of stool and gas. 2. History of ulcerative colitis. 3. History of primary sclerosing cholangitis. 4. s/p failed Kock pouch resection and creation of Yajaira ileostomy 4.1. Proctocolectomy and Kock pouch continent ileostomy in 1978. 4.2. Total abdominal hysterectomy and bilateral salpingo-oophorectomy in 1983. 4.3. Appendectomy age 15. 4.4. Cholecystectomy in 1985. 4.5. Liver transplantation in 1999. 4.6. Laparotomy with revision of Kock pouch and repair of pouch cutaneous fistula in 2010. Recommendations diet per surgery Abx Tacrolimus, monitor levels zofran prn, compazine prn fu LFTs endoscopy if necessary on TPN cellcept 750 BID monitor for lytes protonix surgical F/u re CT results Subjective Allergies: Coded Allergies: CODEINE (Verified Allergy, Severe, 12/17/18) Face contractions HYDROMORPHONE (Verified Allergy, Severe, Itching, 12/17/18) Itching whole body METOCLOPRAMIDE (Verified Allergy, Severe, 12/17/18) Face contractions MORPHINE (Verified Allergy, Severe, Shortness of Breath, 12/17/18) SULFA (SULFONAMIDE ANTIBIOTICS) (Verified Allergy, Severe, 12/17/18) Face contractions Subjective Feels well no abd pain (+) stool in ostomy ID eval noted d/w patient re CT results Objective Last 24 Hour Vital Signs Date Time Temp Pulse Resp B/P (MAP) Pulse Ox O2 Delivery O2 Flow Rate FiO2 12/28/18 17:38 133/65 12/28/18 16:00 98.6 76 18 133/65 (87) 97 12/28/18 12:00 98.5 90 18 133/68 (89) 98 12/28/18 09:00 Room Air 12/28/18 08:50 120/56 12/28/18 08:49 86 120/56 12/28/18 08:00 98.4 86 18 120/56 (77) 98 12/28/18 04:00 99.3 91 17 153/75 (101) 98 12/28/18 00:00 98.4 83 17 115/77 (90) 98 12/27/18 21:00 Room Air 12/27/18 20:00 99.0 86 18 121/65 (83) 97 Intake and Output 12/27/18 12/28/18 18:59 06:59 Intake Total 1877 ml 1660 ml Output Total 1265 ml 1375 ml Balance 612 ml 285 ml Intake Oral 736 ml 520 ml IV Total 1141 ml 1140 ml Output Urine Total 800 ml 800 ml Other 465 ml 575 ml # Voids 1 Laboratory Tests 12/28/18 04:40: White Blood Count 11.8H, Red Blood Count 2.88L, Hemoglobin 8.6L, Hematocrit 26.5L, Mean Corpuscular Volume 92, Mean Corpuscular Hemoglobin 29.9, Mean Corpuscular Hemoglobin Concent 32.4, Red Cell Distribution Width 12.5, Platelet Count 476H, Mean Platelet Volume 6.5, Neutrophils (%) (Auto) 83.7H, Lymphocytes (%) (Auto) 5.8L, Monocytes (%) (Auto) 7.4, Eosinophils (%) (Auto) 2.6, Basophils (%) (Auto) 0.5, Sodium Level 132L, Potassium Level 4.4, Chloride Level 101, Carbon Dioxide Level 23, Anion Gap 8, Blood Urea Nitrogen 25H, Creatinine 1.2, Estimat Glomerular Filtration Rate 44.8, Glucose Level 169H, Calcium Level 9.6, Total Bilirubin 0.4, Aspartate Amino Transf (AST/SGOT) 11L, Alanine Aminotransferase (ALT/SGPT) 21, Alkaline Phosphatase 344H, Total Protein 6.3L, Albumin 1.7L, Globulin 4.6, Albumin/Globulin Ratio 0.4L Height (Feet): 5 Height (Inches): 5.00 Weight (Pounds): 136 Objective WDWN NCAT supple CTA RR abd soft ND NT, (+) (L) sided ostomy and (R) sided wound no edema Simba Cardona MD Dec 28, 2018 19:12
--- NOTE | 2018-12-28 19:20 | NUR ---
HAND-OFF: Report given to PATRICK Baron.
[2018-12-28 20:00] VITALS: BP 148/70
[2018-12-28] MEDS: Dyna-Hex 2% Top Sol 2oz TOPIC SCH (20:07)
[2018-12-28] MEDS: Miconazole Vag Cr 45gm Tube (100mg per applicator) VAGIN SCH (20:07)
[2018-12-28] MEDS: Fat Emulsion Iv 20% 216 ML in Tpn 1,560 ML IV SCH (20:09)
--- NOTE | 2018-12-28 22:43 | NUR ---
NURSE NOTE: Pt is A/Ox4 with stable VS. Orders reviewed and physical assessment completed. Pt ostomy appliance was leaking at the base. Appliance reinforced with 2 barrier strips at the base. Skin surrounding the base of the appliance is red, skin was cleansed and barrier spray and swab was applied. Call felton is within reach. Will continue to monitor.
[2018-12-29] MEDS: NovoLOG Insulin Flexpen SUBQ SCH ×5 (00:09→23:35)
[2018-12-29 00:11] VITALS: BP 123/63
[2018-12-29] MEDS: HYDROmorphone 1mg/ml Carpuject SUBQ PRN ×2 (01:00→06:52)
[2018-12-29 04:00] VITALS: BP 133/86
[2018-12-29 05:32] LABS: BASOPHILS % (AUTO) 0.8 % (0.0-2.0); HEMATOCRIT 28.6 % (37.0-47.0); HEMOGLOBIN 9.4 G/DL (12.0-16.0); LYMPHOCYTES % (AUTO) 9.2 % (20.0-45.0); MEAN CORPUSCULAR VOLUME 92 FL (80-99); MONOCYTES % (AUTO) 5.9 % (1.0-10.0); PLATELET COUNT 604 K/UL (150-450); RED CELL DISTRIBUTION WIDTH 12.7 % (11.6-14.8); WHITE BLOOD COUNT 9.7 K/UL (4.8-10.8)
[2018-12-29] MEDS: Levothyroxine 125mcg tab ORAL SCH (05:41)
[2018-12-29 06:14] LABS: ALANINE AMINOTRANSFERASE 19 U/L (12-78); ALBUMIN 1.8 G/DL (3.4-5.0); ALBUMIN/GLOBULIN RATIO 0.4 (1.0-2.7); ALKALINE PHOSPHATASE 358 U/L (46-116); ANION GAP 8 mmol/L (5-15); ASPARTATE AMINO TRANSFERASE 11 U/L (15-37); BILIRUBIN,TOTAL 0.3 MG/DL (0.2-1.0); BLOOD UREA NITROGEN 20 mg/dL (7-18); CALCIUM 9.6 MG/DL (8.5-10.1); CARBON DIOXIDE 24 MMOL/L (21-32); CHLORIDE 102 MMOL/L (98-107); CREATININE 1.2 MG/DL (0.55-1.30); FERRITIN 169 NG/ML (8-388); POTASSIUM 4.4 MMOL/L (3.5-5.1); SODIUM 134 MMOL/L (136-145)
[2018-12-29 06:32] LABS: IRON 20 ug/dL (50-175)
--- NOTE | 2018-12-29 07:30 | NUR ---
HAND-OFF: Report given to Milady. Pt is stable. Endorsed ostomy leaking overnight and appliance change.
--- NOTE | 2018-12-29 07:42 | NUR ---
NURSE NOTES: AWAKE/ALERT. PAIN SCALE 5/10. ILEOSTOMY BAG INTACT. NO LEAKING NOTED AT THIS TIME. IN NO APPARENT DISTRESS.
[2018-12-29 08:00] VITALS: BP_SYST 140; BP_SYST 150; BP_DIAS 59; BP_DIAS 60
[2018-12-29] MEDS: D5 1/2NS w/KCl 40meq 1000ml 1,000 ML IV SCH ×2 (08:00→13:52)
[2018-12-29] MEDS: Lisinopril 20mg tab ORAL SCH ×2 (08:29→17:33)
[2018-12-29] MEDS: Metoprolol Succinate XL 25mg tab ORAL SCH (08:30)
[2018-12-29] MEDS: Nystatin Susp 500,000 units/5ml ORAL SCH ×4 (08:30→20:25)
[2018-12-29] MEDS: Pantoprazole Inj IVP SCH (08:30)
[2018-12-29] MEDS: Mycophenolate 250mg cap ORAL SCH ×2 (08:30→20:26)
--- NOTE | 2018-12-29 09:05 | General Progress Note ---
Progress Note Progress Note AVSS Tolerating clear liquids. Abdomen still distended. Difficulty maintaining a seal with ileostomy appliance Urine 2800 Ileostomy 1315 WBC 9700Hgb 9.4 Platelets up 604,000 BN down 20 Cr 1.2 Alk phos up 358 Iron 20 Albumin 1.8 Imp. Slowly resolving distention Abnormal small bowel loop seen on CT scan 12/26 Plan: continue clear liquid diet and TPN Venofer 100mg IV daily x 5 will do follow-up CT scan tomorrow Lars Sotomayor MD Dec 29, 2018 09:04
--- NOTE | 2018-12-29 09:30 | NUR ---
NURSE NOTES: AMBULATED OUT IN THE [place].
--- NOTE | 2018-12-29 09:56 | General Progress Note ---
Assessment/Plan Status: unchanged Assessment/Plan: (1) Malfunctioning Kock Pouch (2) History of liver transplant ICD Codes: Z94.4 - Liver transplant status Assessment/Plan 1. Malfunctioning Kock pouch continent ileostomy with increasing difficulty with intubation and increasing incontinence of stool and gas. 2. History of ulcerative colitis. 3. History of primary sclerosing cholangitis. 4. STATUS POST MULTIPLE ABDOMINAL OPERATIONS: 4.1. Proctocolectomy and Kock pouch continent ileostomy in 1978. 4.2. Total abdominal hysterectomy and bilateral salpingo-oophorectomy in 1983. 4.3. Appendectomy age 15. 4.4. Cholecystectomy in 1985. 4.5. Liver transplantation in 1999. 4.6. Laparotomy with revision of Kock pouch and repair of pouch cutaneous fistula in 2010. Status post exploratory laparotomy with lysis of the adhesions and continent pouch repair continue zosyn zofran prn, compazine prn fu LFTs endoscopy if necessary on TPN cellcept 750 BID prograft 3 gm per day monitor for lytes protonix on clears per surg will fu labs plan repeat CT tomorrow Subjective ROS Limited/Unobtainable: Yes Allergies: Coded Allergies: CODEINE (Verified Allergy, Severe, 12/17/18) Face contractions HYDROMORPHONE (Verified Allergy, Severe, Itching, 12/17/18) Itching whole body METOCLOPRAMIDE (Verified Allergy, Severe, 12/17/18) Face contractions MORPHINE (Verified Allergy, Severe, Shortness of Breath, 12/17/18) SULFA (SULFONAMIDE ANTIBIOTICS) (Verified Allergy, Severe, 12/17/18) Face contractions Subjective abd pain Objective Last 24 Hour Vital Signs Date Time Temp Pulse Resp B/P (MAP) Pulse Ox O2 Delivery O2 Flow Rate FiO2 12/29/18 08:30 73 140/68 12/29/18 08:29 140/68 12/29/18 08:03 Room Air 12/29/18 08:00 97.3 73 18 140/60 (86) 97 12/29/18 07:22 98.7 12/29/18 04:00 98.7 75 17 133/86 (102) 99 12/29/18 00:11 98.2 78 17 123/63 (83) 95 12/28/18 21:00 Room Air 12/28/18 20:00 98.1 95 18 148/70 (96) 97 12/28/18 19:38 97 Nasal Cannula 2.0 28 12/28/18 17:38 133/65 12/28/18 16:00 98.6 76 18 133/65 (87) 97 12/28/18 12:00 98.5 90 18 133/68 (89) 98 Intake and Output 12/28/18 12/29/18 19:00 07:00 Intake Total 2187 ml 579 ml Output Total 1990 ml 2125 ml Balance 197 ml -1546 ml Intake Oral 850 ml 480 ml IV Total 1337 ml 99 ml Output Urine Total 1300 ml 1500 ml Other 690 ml 625 ml Laboratory Tests 12/29/18 04:55: White Blood Count 9.7, Red Blood Count 3.10L, Hemoglobin 9.4L, Hematocrit 28.6L , Mean Corpuscular Volume 92, Mean Corpuscular Hemoglobin 30.2, Mean Corpuscular Hemoglobin Concent 32.8, Red Cell Distribution Width 12.7, Platelet Count 604H, Mean Platelet Volume 6.3L, Neutrophils (%) (Auto) 80.0H, Lymphocytes (%) (Auto) 9.2L, Monocytes (%) (Auto) 5.9, Eosinophils (%) (Auto) 4.0H, Basophils (%) (Auto) 0.8, Sodium Level 134L, Potassium Level 4.4, Chloride Level 102, Carbon Dioxide Level 24, Anion Gap 8, Blood Urea Nitrogen 20H, Creatinine 1.2, Estimat Glomerular Filtration Rate 44.8, Glucose Level 164H , Calcium Level 9.6, Iron Level 20L, Ferritin 169, Total Bilirubin 0.3, Aspartate Amino Transf (AST/SGOT) 11L, Alanine Aminotransferase (ALT/SGPT) 19, Alkaline Phosphatase 358H, Total Protein 6.5, Albumin 1.8L, Globulin 4.7, Albumin/Globulin Ratio 0.4L, Vitamin B12 Level 563, Folate 18.8 Height (Feet): 5 Height (Inches): 5.00 Weight (Pounds): 136 General Appearance: alert EENT: normal ENT inspection Neck: supple Cardiovascular: normal rate Respiratory/Chest: decreased breath sounds Abdomen: soft, decreased bowel sounds, distended Extremities: non-tender Max Dozier MD Dec 29, 2018 09:56
--- NOTE | 2018-12-29 10:57 | NUR ---
*-*INSURANCE *-* UPDATED CLINICALS AND REVIEW HAVE BEEN FAXED TO: [facility]#[phone]
[2018-12-29 12:00] VITALS: BP 132/65
[2018-12-29] MEDS: Hydromorphone 0.5mg/0.5ml inj SUBQ PRN ×2 (12:05→23:38)
--- NOTE | 2018-12-29 12:05 | NUR ---
NURSE NOTES: C/O ABDOMINAL PAIN. SCALE 10/10. GIVEN DILAUDID 0.5MG SUBQ FOR BREAKTHROUGH PAIN, ALSO C/O NAUSEA. GIVEN COMPAZINE 10MG IV ORDERED. PAIN DOWN TO 4/10 AFTER PAIN MEDS. STATES SHE FELT BETTER.
--- NOTE | 2018-12-29 12:34 | Cardiology Progress Note ---
Assessment/Plan Status Narrative 1. Malfunctioning Kock pouch continent ileostomy. 2. History of ulcerative colitis. 3. History of primary sclerosing cholangitis. 4. Status post multiple abdominal operations. 4.1. Appendectomy in 1964. 4.2. Proctocolectomy and Kock pouch in 1978. 4.3. Total abdominal hysterectomy and bilateral salpingo-oophorectomy 1983 4.4. Cholecystectomy in 1985. 4.5. Orthotopic liver transplantation in 1999. 4.6. Revision of Kock pouch and repair of fistula in 2010. HTN- New onset-improved with meds Tachycardia- improved with IV Fluids and Beta Blockers. BP slightly elevated - probably due to pain/discomfort Assessment/Plan Clonidine 0.1 mg Q6h PRN Metoprolol 25 mg QD Zestril 40 mg BID. If BP remains high, may increase Metoprolol pain management.\ Encouraged increased ambulation. Subjective Cardiovascular: Reports: no symptoms Respiratory: Reports: no symptoms Gastrointestinal/Abdominal: Reports: abdomen distended, abdominal pain Genitourinary: Reports: no symptoms Subjective on ABx. Tolerating PO liquids. Abdominal pain. WBC decreased Objective Last 24 Hour Vital Signs Date Time Temp Pulse Resp B/P (MAP) Pulse Ox O2 Delivery O2 Flow Rate FiO2 12/29/18 11:05 97.3 12/29/18 08:30 73 140/68 12/29/18 08:29 140/68 12/29/18 08:03 Room Air 12/29/18 08:00 97.3 73 18 140/60 (86) 97 12/29/18 07:22 98.7 12/29/18 04:00 98.7 75 17 133/86 (102) 99 12/29/18 00:11 98.2 78 17 123/63 (83) 95 12/28/18 21:00 Room Air 12/28/18 20:00 98.1 95 18 148/70 (96) 97 12/28/18 19:38 97 Nasal Cannula 2.0 28 12/28/18 17:38 133/65 12/28/18 16:00 98.6 76 18 133/65 (87) 97 Cardiovascular: normal rate, regular rhythm, no gallop/murmur Respiratory/Chest: lungs clear, normal breath sounds Abdomen: normal bowel sounds, soft, distended Extremities: non-tender, normal inspection, no calf tenderness, no swelling Intake and Output 12/28/18 12/29/18 19:00 07:00 Intake Total 2187 ml 579 ml Output Total 1990 ml 2125 ml Balance 197 ml -1546 ml Intake Oral 850 ml 480 ml IV Total 1337 ml 99 ml Output Urine Total 1300 ml 1500 ml Other 690 ml 625 ml Laboratory Tests Test 12/29/18 04:55 White Blood Count 9.7 K/UL (4.8-10.8) Red Blood Count 3.10 M/UL (4.20-5.40) L Hemoglobin 9.4 G/DL (12.0-16.0) L Hematocrit 28.6 % (37.0-47.0) L Mean Corpuscular Volume 92 FL (80-99) Mean Corpuscular Hemoglobin 30.2 PG (27.0-31.0) Mean Corpuscular Hemoglobin Concent 32.8 G/DL (32.0-36.0) Red Cell Distribution Width 12.7 % (11.6-14.8) Platelet Count 604 K/UL (150-450) H Mean Platelet Volume 6.3 FL (6.5-10.1) L Neutrophils (%) (Auto) 80.0 % (45.0-75.0) H Lymphocytes (%) (Auto) 9.2 % (20.0-45.0) L Monocytes (%) (Auto) 5.9 % (1.0-10.0) Eosinophils (%) (Auto) 4.0 % (0.0-3.0) H Basophils (%) (Auto) 0.8 % (0.0-2.0) Sodium Level 134 MMOL/L (136-145) L Potassium Level 4.4 MMOL/L (3.5-5.1) Chloride Level 102 MMOL/L (98-107) Carbon Dioxide Level 24 MMOL/L (21-32) Anion Gap 8 mmol/L (5-15) Blood Urea Nitrogen 20 mg/dL (7-18) H Creatinine 1.2 MG/DL (0.55-1.30) Estimat Glomerular Filtration Rate 44.8 mL/min (>60) Glucose Level 164 MG/DL (74-106) H Calcium Level 9.6 MG/DL (8.5-10.1) Iron Level 20 ug/dL (50-175) L Ferritin 169 NG/ML (8-388) Total Bilirubin 0.3 MG/DL (0.2-1.0) Aspartate Amino Transf (AST/SGOT) 11 U/L (15-37) L Alanine Aminotransferase (ALT/SGPT) 19 U/L (12-78) Alkaline Phosphatase 358 U/L (46-116) H Total Protein 6.5 G/DL (6.4-8.2) Albumin 1.8 G/DL (3.4-5.0) L Globulin 4.7 g/dL Albumin/Globulin Ratio 0.4 (1.0-2.7) L Vitamin B12 Level 563 PG/ML (193-986) Folate 18.8 NG/ML (8.6-58.9) Microbiology Date/Time Source Procedure Growth Status 12/27/18 13:38 Blood Blood Culture - Preliminary NO GROWTH AFTER 24 HOURS Resulted 12/27/18 12:45 Blood Blood Culture - Preliminary NO GROWTH AFTER 24 HOURS Resulted 12/27/18 10:15 Urine,Clean Catch Urine Culture - Preliminary NO GROWTH AFTER 24 HOURS Resulted Micha Ziegler MD Dec 29, 2018 12:34
[2018-12-29] MEDS: Vancomycin 1gm/D5W 275ml IVPB SCH ×2 (13:04)
--- NOTE | 2018-12-29 15:01 | NUR ---
PT WEEKLY PROGRESS NOTE Patient being seen for skilled PT intervention for transfer training and gait training. Patient progressing gradually with mobility and endurance, limited at times by pain and c/o not feeling well. Patient able to transfer with supervision/SBA and able to ambulate up to 250 ft with SBA. Patient will benefit from continued inpatient PT intervention to address strength, balance and endurance for improved functional mobility.
--- NOTE | 2018-12-29 15:56 | NUR ---
CASE MANAGEMENT:REVIEW 12/26/18 SI: POD #11 S/P RESECTION,ENTEROENTEROSTOMY AND CREATION OF SUKHI ILEOSTOMY ABNORMAL BOWEL LOOPS NOTED ON CT 99.5 76 18 132/65 95% ON RA H/H-9.4/28.6 IS: IV PROTONIX QD IV VANCOMYCIN Q24 IV ZOSYN Q8HR LISINOPRIL PO BID CELLCEPT PO Q12 TOPROL XL PO QD IVF@75/HR TPN/IL : MED/SURG STATUS 3 EAST DCP: FROM HOME PLAN: NPO AFTER MIDNIGHT CLEAR LIQUIDS CONTINUE TPN/IL Addendum: 12/31/18 at 1015 by ADRIANA MCNEAL LVN LVN ABOVE REVIEW IS FOR 12/29/18
[2018-12-29 16:00] VITALS: BP 137/62
[2018-12-29] MEDS ORDERED: Tubing IV Secondary IV ONE (16:03)
--- NOTE | 2018-12-29 18:35 | NUR ---
NURSE NOTES: ambulated out in the [place] . in no distress.
--- NOTE | 2018-12-29 19:00 | NUR ---
NURSE NOTES: ILEOSTOMY BAG IN PLACE. NO LEAKING. PT IN NO ACUTE DISTRESS.
--- NOTE | 2018-12-29 19:31 | NUR ---
HAND-OFF: Report given to ABRAN Delgado RN.
[2018-12-29 20:00] VITALS: BP 156/67
--- NOTE | 2018-12-29 20:00 | NUR ---
Nurse's notes: received patient awake, alert and oriented x 4; admits to abdominal pain; requesting pain medication for relief; educated patient on pain management; noted reggie on the abdominal surgical incision site; some redness but no visible s/s of infection; also noted colostomy bag over ileostomy site; thin, greenish liquid stool in drainage bag; patient using bedside commode with little help; picc line on the MARILY; dressing is clean, dry and intact. discussed plan of care for tonight; patient understood teaching and agrees to plan of care. will continue to monitor I&Os.
[2018-12-29] MEDS: Fat Emulsion Iv 20% 216 ML in Tpn 1,560 ML IV SCH (20:25)
[2018-12-29] MEDS: Iron Sucrose 100 MG in NS 55 ML IVPB SCH (20:27)
[2018-12-29] MEDS: Dyna-Hex 2% Top Sol 2oz TOPIC SCH (20:33)
[2018-12-29] MEDS: Miconazole Vag Cr 45gm Tube (100mg per applicator) VAGIN SCH (20:33)
[2018-12-29] MEDS: TraZODone HCl 25 mg tablet ORAL PRN (22:01)
[2018-12-30] VITALS: BP 172/77
[2018-12-30] MEDS: Hydromorphone 0.5mg/0.5ml inj SUBQ PRN ×3 (03:32→21:05)
[2018-12-30 03:39] VITALS: BP 144/69
--- NOTE | 2018-12-30 05:11 | NUR ---
nurse's notes: No incidents of falls, injuries, trauma or skin issues reported as of this time; high blood pressure associated with pain. pain managed well with ordered medications, however, patient needed breakthrough pain twice during this shift. no leakage noted from colostomy bag. patient adept at emptying her colostomy bag. No s/s of hypoglycemia; TPN and ivf infusing via PICC line. All due meds given; education given. will continue to monitor.
[2018-12-30] MEDS: NovoLOG Insulin Flexpen SUBQ SCH ×4 (05:27→23:13)
[2018-12-30 06:27] LABS: BASOPHILS % (AUTO) 0.8 % (0.0-2.0); EOSINOPHILS % (AUTO) 3.4 % (0.0-3.0); HEMATOCRIT 27.8 % (37.0-47.0); HEMOGLOBIN 9.1 G/DL (12.0-16.0); LYMPHOCYTES % (AUTO) 12.8 % (20.0-45.0); MEAN CORPUSCULAR VOLUME 92 FL (80-99); MONOCYTES % (AUTO) 7.2 % (1.0-10.0); NEUTROPHILS % (AUTO) 75.8 % (45.0-75.0); PLATELET COUNT 648 K/UL (150-450); RED BLOOD COUNT 3.02 M/UL (4.20-5.40); RED CELL DISTRIBUTION WIDTH 12.6 % (11.6-14.8); WHITE BLOOD COUNT 8.9 K/UL (4.8-10.8)
--- NOTE | 2018-12-30 06:45 | NUR ---
nurse's notes: kept NPO except ice chips and meds for CT abd today; total UOP this shift was 2500 and total ileostomy output was 475.
[2018-12-30] MEDS: Levothyroxine 125mcg tab ORAL SCH (06:47)
[2018-12-30 06:50] LABS: ALANINE AMINOTRANSFERASE 15 U/L (12-78); ALBUMIN 1.8 G/DL (3.4-5.0); ALBUMIN/GLOBULIN RATIO 0.4 (1.0-2.7); ALKALINE PHOSPHATASE 353 U/L (46-116); ANION GAP 9 mmol/L (5-15); ASPARTATE AMINO TRANSFERASE 11 U/L (15-37); BILIRUBIN,TOTAL 0.3 MG/DL (0.2-1.0); BLOOD UREA NITROGEN 18 mg/dL (7-18); CALCIUM 9.6 MG/DL (8.5-10.1); CARBON DIOXIDE 24 MMOL/L (21-32); CHLORIDE 104 MMOL/L (98-107); CREATININE 1.1 MG/DL (0.55-1.30); POTASSIUM 4.2 MMOL/L (3.5-5.1); SODIUM 137 MMOL/L (136-145)
--- NOTE | 2018-12-30 07:30 | NUR ---
NURSE NOTES: AWAKE/ALERT. PAIN SCALE 3/10. IEOSTOMY BAG IN PLACE. NO LEAKING. IN NO DISTRESS.
--- NOTE | 2018-12-30 07:48 | General Progress Note ---
Progress Note Progress Note Continues with somewhat distended abdomen, intermittent abdominal pain. Urine 4400 Ileostomy 1000 Platelets up 648,000 Alk phos down 353 BUN 18 Cr 1.1 Imp. r/o intra-abdominal collection Plan: f/u STAT CT abd+pelvis with oral contrast today Lars Sotomayor MD Dec 30, 2018 07:48
[2018-12-30] MEDS: D5 1/2NS w/KCl 40meq 1000ml 1,000 ML IV SCH (07:59)
[2018-12-30 08:00] VITALS: BP 139/65
[2018-12-30] MEDS: Mycophenolate 250mg cap ORAL SCH ×2 (08:36→20:22)
[2018-12-30] MEDS: Lisinopril 20mg tab ORAL SCH (08:37)
[2018-12-30] MEDS: Metoprolol Succinate XL 25mg tab ORAL SCH (08:38)
[2018-12-30] MEDS: Pantoprazole Inj IVP SCH (08:38)
--- NOTE | 2018-12-30 08:38 | General Progress Note ---
Assessment/Plan Status: unchanged Assessment/Plan: (1) Malfunctioning Kock Pouch (2) History of liver transplant ICD Codes: Z94.4 - Liver transplant status Assessment/Plan 1. Malfunctioning Kock pouch continent ileostomy with increasing difficulty with intubation and increasing incontinence of stool and gas. 2. History of ulcerative colitis. 3. History of primary sclerosing cholangitis. 4. STATUS POST MULTIPLE ABDOMINAL OPERATIONS: 4.1. Proctocolectomy and Kock pouch continent ileostomy in 1978. 4.2. Total abdominal hysterectomy and bilateral salpingo-oophorectomy in 1983. 4.3. Appendectomy age 15. 4.4. Cholecystectomy in 1985. 4.5. Liver transplantation in 1999. 4.6. Laparotomy with revision of Kock pouch and repair of pouch cutaneous fistula in 2010. Status post exploratory laparotomy with lysis of the adhesions and continent pouch repair continue zosyn zofran prn, compazine prn fu LFTs>>> stable now endoscopy if necessary on TPN cellcept 750 BID prograft 3 gm per day monitor for lytes protonix on clears per surg will fu labs plan repeat CT today Subjective ROS Limited/Unobtainable: Yes Allergies: Coded Allergies: CODEINE (Verified Allergy, Severe, 12/17/18) Face contractions HYDROMORPHONE (Verified Allergy, Severe, Itching, 12/17/18) Itching whole body METOCLOPRAMIDE (Verified Allergy, Severe, 12/17/18) Face contractions MORPHINE (Verified Allergy, Severe, Shortness of Breath, 12/17/18) SULFA (SULFONAMIDE ANTIBIOTICS) (Verified Allergy, Severe, 12/17/18) Face contractions Subjective abd pain Objective Last 24 Hour Vital Signs Date Time Temp Pulse Resp B/P (MAP) Pulse Ox O2 Delivery O2 Flow Rate FiO2 12/30/18 08:00 98.6 84 18 139/65 (89) 96 12/30/18 03:39 98.0 78 17 144/69 (94) 97 12/30/18 00:00 98.7 78 20 172/77 (108) 97 12/29/18 21:00 Room Air 12/29/18 20:00 98.3 83 19 156/67 (96) 96 12/29/18 17:33 137/63 12/29/18 16:00 98.2 72 17 137/62 (87) 97 12/29/18 12:35 97.3 12/29/18 12:00 99.5 76 18 132/65 (87) 95 12/29/18 11:05 97.3 Intake and Output 12/29/18 12/30/18 19:00 07:00 Intake Total 2839 ml 1652.6 ml Output Total 2325 ml 3500 ml Balance 514 ml -1847.4 ml Intake Oral 1350 ml IV Total 1489 ml 1412.6 ml Other 240 ml Output Urine Total 1800 ml 2500 ml Other 525 ml 1000 ml # Voids 9 8 Laboratory Tests 12/30/18 05:20: White Blood Count 8.9, Red Blood Count 3.02L, Hemoglobin 9.1L, Hematocrit 27.8L , Mean Corpuscular Volume 92, Mean Corpuscular Hemoglobin 30.2, Mean Corpuscular Hemoglobin Concent 32.8, Red Cell Distribution Width 12.6, Platelet Count 648H, Mean Platelet Volume 6.2L, Neutrophils (%) (Auto) 75.8H, Lymphocytes (%) (Auto) 12.8L, Monocytes (%) (Auto) 7.2, Eosinophils (%) (Auto) 3.4H, Basophils (%) (Auto) 0.8, Sodium Level 137, Potassium Level 4.2, Chloride Level 104, Carbon Dioxide Level 24, Anion Gap 9, Blood Urea Nitrogen 18, Creatinine 1.1, Estimat Glomerular Filtration Rate 49.6, Glucose Level 153H, Calcium Level 9.6, Total Bilirubin 0.3, Aspartate Amino Transf (AST/SGOT) 11L, Alanine Aminotransferase (ALT/SGPT) 15, Alkaline Phosphatase 353H, Total Protein 6.4, Albumin 1.8L, Globulin 4.6, Albumin/Globulin Ratio 0.4L Height (Feet): 5 Height (Inches): 5.00 Weight (Pounds): 136 General Appearance: alert EENT: normal ENT inspection Neck: supple Cardiovascular: normal rate Respiratory/Chest: decreased breath sounds Abdomen: normal bowel sounds, non tender, soft Extremities: non-tender Max Dozier MD Dec 30, 2018 08:38
[2018-12-30] MEDS: Nystatin Susp 500,000 units/5ml ORAL SCH ×4 (08:46→20:22)
--- NOTE | 2018-12-30 11:38 | NUR ---
*-*INSURANCE *-* UPDATED CLINICALS AND REVIEW HAVE BEEN FAXED TO: [facility]#[phone]
[2018-12-30 12:00] VITALS: BP 154/72
--- NOTE | 2018-12-30 12:24 | Infectious Diseases Prog Note ---
Assessment/Plan Assessment/Plan ASSESSMENT AND PLAN: 1. leukocytosis, fevers, ? sepsis, ? source, ? intra-abdominal, ? line - blood cultures negative - zosyn, discontinue vancomycin - leukocytosis and fevers better, blood cultures negative - monitor labs - f/u CT of abdomen and pelvis 2. 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 3. Liver transplantation. 4. Sclerosing cholangitis. 5. Ulcerative colitis. 6. The patient is anemic. 7. History of cholecystectomy, appendectomy, hysterectomy, and proctocolectomy. 8. History of multiple abdominal operations. 9. Allergies to codeine, hydromorphone, metoclopramide, morphine, and sulfa. 10. Family doctor is Noncontributory. 11. Social history is negative. 12. MAR was noted. 13. Case discussed with RN. 14. Case discussed with the patient. 15. Continue treatment per Dr. Sotomayor and consultants. Subjective Constitutional: Denies: fever HEENT: Denies: congestion Respiratory: Denies: shortness of breath Cardiovascular: Denies: chest pain Gastrointestinal/Abdominal: Reports: other - some abdominal discomfort but no cassandra pain; Denies: nausea, vomiting, diarrhea Genitourinary: Reports: other - no morales Neurologic: Denies: headache Psychiatric: Denies: depression Skin: Denies: rash Hematologic: Denies: bleeding Musculoskeletal: Denies: pain Allergies: Coded Allergies: CODEINE (Verified Allergy, Severe, 12/17/18) Face contractions HYDROMORPHONE (Verified Allergy, Severe, Itching, 12/17/18) Itching whole body METOCLOPRAMIDE (Verified Allergy, Severe, 12/17/18) Face contractions MORPHINE (Verified Allergy, Severe, Shortness of Breath, 12/17/18) SULFA (SULFONAMIDE ANTIBIOTICS) (Verified Allergy, Severe, 12/17/18) Face contractions Objective Vital Signs Last 24 Hour Vital Signs Date Time Temp Pulse Resp B/P (MAP) Pulse Ox O2 Delivery O2 Flow Rate FiO2 12/30/18 10:31 98.6 12/30/18 08:50 Room Air 12/30/18 08:38 84 139/65 12/30/18 08:37 135/65 12/30/18 08:00 98.6 84 18 139/65 (89) 96 12/30/18 03:39 98.0 78 17 144/69 (94) 97 12/30/18 00:00 98.7 78 20 172/77 (108) 97 12/29/18 21:00 Room Air 12/29/18 20:00 98.3 83 19 156/67 (96) 96 12/29/18 17:33 137/63 12/29/18 16:00 98.2 72 17 137/62 (87) 97 12/29/18 12:35 97.3 Height (Feet): 5 Height (Inches): 5.00 Weight (Pounds): 136 General Appearance: no acute distress HEENT: normocephalic, atraumatic, anicteric, mucous membranes moist Respiratory/Chest: lungs clear, normal breath sounds, no respiratory distress, no accessory muscle use Cardiovascular: normal rate, regular rhythm, no gallop/murmur, no JVD Abdomen: normal bowel sounds, soft, non tender, no organomegaly Genitourinary: other Extremities: no cyanosis Skin: no rash 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 Good bowel and bag opacification with no evidence of bowel obstruction. Unusual, markedly distended unopacified loop of bowel in the pelvis. Although unopacified, this does not appear to be an abscess as there is a wall and other characteristics more in keeping with bowel. Would consider a large diverticulum or possibly remnant of the previous Kock pouch or part of the small bowel leading to the old pouch as those segments are sometimes quite distended. Status post liver transplant. Status post cholecystectomy. Mild basal atelectasis. Chest x-ray - no pna, report noted Microbiology Date/Time Source Procedure Growth Status 12/27/18 13:38 Blood Blood Culture - Preliminary NO GROWTH AFTER 48 HOURS Resulted 12/27/18 10:15 Urine,Clean Catch Urine Culture - Final NO GROWTH AFTER 48 HOURS Complete Microbiology Date/Time Source Procedure Growth Status 12/27/18 13:38 Blood Blood Culture - Preliminary NO GROWTH AFTER 48 HOURS Resulted 12/27/18 12:45 Blood Blood Culture - Preliminary NO GROWTH AFTER 48 HOURS Resulted Laboratory Tests Test 12/30/18 05:20 White Blood Count 8.9 K/UL (4.8-10.8) Red Blood Count 3.02 M/UL (4.20-5.40) L Hemoglobin 9.1 G/DL (12.0-16.0) L Hematocrit 27.8 % (37.0-47.0) L Mean Corpuscular Volume 92 FL (80-99) Mean Corpuscular Hemoglobin 30.2 PG (27.0-31.0) Mean Corpuscular Hemoglobin Concent 32.8 G/DL (32.0-36.0) Red Cell Distribution Width 12.6 % (11.6-14.8) Platelet Count 648 K/UL (150-450) H Mean Platelet Volume 6.2 FL (6.5-10.1) L Neutrophils (%) (Auto) 75.8 % (45.0-75.0) H Lymphocytes (%) (Auto) 12.8 % (20.0-45.0) L Monocytes (%) (Auto) 7.2 % (1.0-10.0) Eosinophils (%) (Auto) 3.4 % (0.0-3.0) H Basophils (%) (Auto) 0.8 % (0.0-2.0) Sodium Level 137 MMOL/L (136-145) Potassium Level 4.2 MMOL/L (3.5-5.1) Chloride Level 104 MMOL/L (98-107) Carbon Dioxide Level 24 MMOL/L (21-32) Anion Gap 9 mmol/L (5-15) Blood Urea Nitrogen 18 mg/dL (7-18) Creatinine 1.1 MG/DL (0.55-1.30) Estimat Glomerular Filtration Rate 49.6 mL/min (>60) Glucose Level 153 MG/DL (74-106) H Calcium Level 9.6 MG/DL (8.5-10.1) Total Bilirubin 0.3 MG/DL (0.2-1.0) Aspartate Amino Transf (AST/SGOT) 11 U/L (15-37) L Alanine Aminotransferase (ALT/SGPT) 15 U/L (12-78) Alkaline Phosphatase 353 U/L (46-116) H Total Protein 6.4 G/DL (6.4-8.2) Albumin 1.8 G/DL (3.4-5.0) L Globulin 4.6 g/dL Albumin/Globulin Ratio 0.4 (1.0-2.7) L Current Medications Medications (Trade) Dose Ordered Sig/Kajal Route PRN Reason Start Time Stop Time Status Last Admin Dose Admin Acetaminophen (Tylenol) 650 mg Q4H PRN ORAL Mild Pain/Temp > 100.2 12/26/18 21:00 01/25/19 20:59 12/26/18 21:11 Acetaminophen (Tylenol) 650 mg Q6H PRN ORAL headache 12/17/18 14:45 01/16/19 14:44 12/17/18 14:47 Al Hydroxide/Mg Hydroxide (Mylanta) 30 ml Q6H PRN ORAL dyspepsia 12/28/18 09:30 01/27/19 09:29 12/29/18 20:25 Barium Sulfate (Readi-Cat 2) 450 ml NOW PRN ORAL Radiology Procedure 12/30/18 07:45 01/01/19 07:44 Chlorhexidine Gluconate (Yulia-Hex 2%) 1 applic DAILY@2000 TOPIC 12/17/18 20:00 01/16/19 19:59 12/29/18 20:33 Clonidine HCl (Catapres Tab) 0.1 mg Q6H PRN SL SBP>150 mmHg 12/22/18 22:00 01/21/19 21:59 12/26/18 16:09 Dextrose 1,000 ml @ 0 mls/hr Q24H PRN IV PN interrupted or unavailable 12/20/18 20:00 01/19/19 19:59 Dextrose (Dextrose 50%) 25 ml Q30M PRN IV Hypoglycemia 12/22/18 12:45 01/21/19 12:44 Dextrose (Dextrose 50%) 50 ml Q30M PRN IV Hypoglycemia 12/22/18 12:45 01/21/19 12:44 Dextrose/ Electrolytes 1,000 ml @ 25 mls/hr Q24H IV 12/24/18 08:00 01/21/19 07:59 12/29/18 13:52 Diphenhydramine HCl (Benadryl) 50 mg Q4H PRN ORAL Itching 12/27/18 20:00 01/26/19 19:59 12/27/18 20:37 Fat Emulsion Intravenous 216 ml/Amino Acids/ Electrolytes/ Dextrose 1,776 ml @ 74 mls/hr Q24H IV 12/21/18 20:00 12/30/18 19:59 12/29/18 20:25 Fat Emulsion Intravenous 216 ml/Amino Acids/ Electrolytes/ Dextrose 1,776 ml @ 74 mls/hr Q24H IV 12/30/18 20:00 01/29/19 19:59 Hydromorphone HCl (Dilaudid) 0.5 mg Q4H PRN SUBQ Severe Breakthru Pain (>7) 12/29/18 12:30 01/05/19 12:29 12/30/18 03:32 Insulin Aspart (NovoLOG) Q6HR SUBQ 12/22/18 18:00 01/21/19 17:59 12/30/18 11:57 Iron Sucrose 100 mg/Sodium Chloride 60 ml @ 240 mls/hr BEDTIME IVPB 12/29/18 21:00 01/02/19 21:14 12/29/18 20:27 Levothyroxine Sodium (Synthroid) 125 mcg DAILY@0630 ORAL 12/18/18 06:30 01/17/19 06:29 12/30/18 06:47 Lisinopril (Prinivil) 40 mg BID ORAL 12/25/18 18:00 01/24/19 17:59 12/30/18 08:37 Metoprolol Succinate (Toprol XL) 25 mg DAILY ORAL 12/24/18 09:00 01/23/19 08:59 12/30/18 08:38 Miconazole Nitrate (Monistat) 1 applic BEDTIME VAGIN 12/27/18 21:00 01/26/19 20:59 12/29/18 20:33 Mycophenolate Mofetil (Cellcept) 750 mg Q12HR ORAL 12/25/18 09:00 01/24/19 08:59 12/30/18 08:36 Nystatin (Nystatin) 5 ml QID ORAL 12/27/18 09:00 01/03/19 08:59 12/29/18 20:25 Ondansetron HCl (Zofran) 4 mg Q6H PRN IVP Nausea & Vomiting 12/21/18 07:15 01/20/19 07:14 12/29/18 10:35 Oxycodone/ Acetaminophen (Percocet 10/325) 1 tab Q4H PRN ORAL pain 4-10 12/28/18 12:30 01/04/19 12:29 12/30/18 10:01 Pantoprazole (Protonix) 40 mg DAILY IVP 12/26/18 09:00 01/25/19 08:59 12/30/18 08:38 Piperacillin Sod/ Tazobactam Sod 3.375 gm/Dextrose 100 ml @ 25 mls/hr EVERY 8 HOURS IVPB 12/30/18 14:00 01/04/19 13:59 Prochlorperazine (Compazine) 10 mg Q6H PRN IVP Nausea & Vomiting 12/20/18 09:15 01/19/19 09:14 12/29/18 12:04 Tacrolimus (Prograf) 1 mg DAILY ORAL 12/19/18 09:00 01/18/19 08:59 12/30/18 08:36 Tacrolimus (Prograf) 2 mg BEDTIME ORAL 12/17/18 21:00 01/16/19 20:59 12/29/18 20:27 Trazodone HCl (Desyrel) 25 mg QHS PRN ORAL INSOMNIA 12/17/18 12:22 01/16/19 12:21 12/29/18 22:01 Philly Shelby MD Dec 30, 2018 12:24
--- NOTE | 2018-12-30 12:38 | Diagnostic Imaging Report ---
Indication: Abdominal distention and pain Technique: Spiral acquisitions obtained through the abdomen and pelvis. Patient ingested oral contrast. No IV contrast utilized, per referring physician request.. Multiplanar reconstructions were generated. Total dose length product 608.52 mGycm. CTDIvol(s) 13.45 mGy. Dose reduction achieved using automated exposure control Comparison: 12/26/2018 Findings: Patient is status post total colectomy. Again demonstrated is a conventional left lower quadrant ileostomy. Small bowel loops are diffusely dilated, with transition point in the right lower quadrant. No contrast is seen in the distal small bowel, even on delayed images taken one hour later. There is a surgical anastomotic staple line in the right lower quadrant where the normal course of the small bowel makes a hairpin loop with small caliber distal ileum exiting this and heading toward the ileostomy site. This communicates with a large irregular blind ending gas-filled structure that measures approximately 12 cm in length by about 4 cm in diameter and demonstrates an air-fluid level. There is a fluid pocket in the anterior pelvis presumably within the peritoneal space just deep to the wound which measures 4.3 cm transverse by 2.8 cm craniocaudad. A second tiny pocket is seen in the deep pelvis posterior to the bladder, measures approximately 3.8 cm transverse by 1 cm AP. There are midline skin reggie. No. Incisional collection demonstrated. No free intraperitoneal gas demonstrated. There is apparent thickening of the distal esophagus. The stomach and duodenum are unremarkable. Lack of IV contrast limits assessment of solid organs. The liver appears grossly unremarkable. Patient is reportedly status post liver transplant, and multiple surgical clips are seen surrounding the liver. No biliary ductal dilatation. The gallbladder is absent. The pancreas, spleen, adrenals are unremarkable. The kidneys demonstrate punctate nonobstructing calyceal calculi bilaterally. No hydronephrosis. No ureteral calculi. The bladder is unusually situated deep in the pelvis, presumably due to prior proctectomy, otherwise appears unremarkable. The included lung bases demonstrate linear atelectasis or scarring, favor the latter given similar to the prior study. The bones are unremarkable. Impression: Postsurgical changes, as described Unusual tubular structure filled mostly with gas but also some fluid communicating with the small bowel at the site of a right lower quadrant enteroenterostomy. Uncertain as to whether this represents an unusual large diverticulum, a true extraluminal gas collection, or a portion of an old continent ileostomy pouch. This is also previously described Dilated proximal small bowel proximal to the enteroenterostomy with slow forward propulsion of contents. Partial small bowel obstruction not completely excludable although unlikely given evidence of forward propulsion of contrast and filling of the ileostomy on prior 12/26/2018 exam; findings most likely functional in nature. Correlate with clinical findings Small anterior pelvic and deep pelvic fluid pockets, most likely represent retained postoperative fluid collections. Abscess as etiology of any of these not completely excludable; correlation with clinical findings recommended Postsurgical changes of the liver status post transplantation Punctate nonobstructing bilateral intrarenal calculi Bilateral basilar pulmonary parenchymal atelectasis and/or scarring Images previously reviewed in person with Dr. Sotomayor The CT scanner at [facility] is accredited by the [employer] and the scans are performed using protocols designed to limit radiation exposure to as low as reasonably achievable to attain images of sufficient resolution adequate for diagnostic evaluation.
--- NOTE | 2018-12-30 13:54 | NUR ---
RD ASSESSMENT & RECOMMENDATIONS SEE CARE ACTIVITY FOR COMPLETE ASSESSMENT DAILY ESTIMATED NEEDS: Needs based on Surgery 61kg 25-30 kcals/kg 9817-6684 total kcals 1-2 g protein/kg 61-122 g total protein 25-30 mL/kg 7170-4281 total fluid mLs NUTRITION DIAGNOSIS: Altered GI fxn r/t h/o UC and malfunctioning kock pouch as evidenced by pt is now s/p kock pouch takedown w/ creation of Yajaira ileo, CLD initiated, remains on TPN PO DIET RECOMMENDATIONS: Advance diet per MD -> LOW FIBER/LOW RESIDUE PARENTERAL NUTRITION RECOMMENDATIONS: D/AA Rate: 65 IL Rate: 9 Total Rate: 74 Volume: 1776 % Dextrose: 18 % AA: 5.5 Energy (kcals/kg): 1730 Protein (g/kg protein): 86 Nonprotein KCALS: 1386 GIR (mg CHO/kg/min): 3.2 % Fat KCALS: 25 NPC: N Ratio: 101:1 TPN Comment: - Maintain current TPN: D18% + AA 5.5% @65ml/hr + 20% IL @9ml/hr -> total of 74ml/hr, all 3:1 - TPN at goal meets 100% est kcal/prot needs (28 kcal/kg and 1.4g prot/kg) - Monitor lytes, BG, and LFT's w/ TPN. ADDITIONAL RECOMMENDATIONS: 1) Obtain a standing weight as pt is able to ambulate in halls 2) Monitor lytes and BG daily w/ TPN Replete as needed 3) LFT's weekly 4) Advance diet per MD 5) Monitor for diet advancement and PO tolerance, ability to taper down TPN 6) Consider DC D5 IVF for improved BG control
--- NOTE | 2018-12-30 14:00 | NUR ---
NURSE NOTES: JULIA WOUND CARE NURSE HERE TO SEE PT. IN ROOM. SKIN CARE DONE. REPLACED NEW ILEOSTOMY BAG. SHOWED PT AND HOW TO DO ILEOSTOMY CARE.
--- NOTE | 2018-12-30 15:09 | NUR ---
NURSE NOTES:WOUND CARE NOTES:Care of ileostomy done with Pt and and pt's spouse. Pt is not yet willing to attempt but was very observant of Ostomy care. Fernanda-stomal are is red and excoriated. Demonstrated and reinforced ot pt and spouse necessity to properly cleaning skin around stoma . Application of Stomahesive powder and Skin Barrier to create crusting before application of flange . 2 piece Convex pouch applied to minimize further irritation to skin from adhesive.Will monitor if 2piece pouch is more effective.
[2018-12-30 16:00] VITALS: BP 156/78
--- NOTE | 2018-12-30 18:30 | NUR ---
NURSE NOTES: PT WHILE EATING COUGHED OUT SPUTUM AND THREW UP LITTLE BIT OF THE MASHED POTATO SHE ATE. RESTED AND CONTINUED TO EAT LATER WITH NO PROBLEM. DR PRIEST CALLED LEFT MESSAGE .
--- NOTE | 2018-12-30 19:00 | NUR ---
NURSE NOTES: ILEOSTOMY BAG IN PLACE. NO LEAKING.
--- NOTE | 2018-12-30 19:22 | NUR ---
HAND-OFF: Report given to Liset HERNANDEZ RN.
--- NOTE | 2018-12-30 19:48 | NUR ---
NURSE NOTES: Patient ambulating inside her room. Ileo bag is clean and dry. No pain. No SOB. PICC line dressing is clean and intact. Needs attended. Call light within reach. In stable condition.
[2018-12-30 20:00] VITALS: BP 154/74
[2018-12-30] MEDS: Dyna-Hex 2% Top Sol 2oz TOPIC SCH (20:20)
[2018-12-30] MEDS: Iron Sucrose 100 MG in NS 55 ML IVPB SCH (20:22)
[2018-12-30] MEDS: Miconazole Vag Cr 45gm Tube (100mg per applicator) VAGIN SCH (20:23)
[2018-12-30] MEDS: Fat Emulsion Iv 20% 216 ML in Tpn 1,560 ML IV SCH (20:25)
[2018-12-30] MEDS: TraZODone HCl 25 mg tablet ORAL PRN (22:50)
[2018-12-31] VITALS (7 sets, daily range): BP systolic 91–157; BP diastolic 55–82
[2018-12-31] MEDS: Hydromorphone 0.5mg/0.5ml inj SUBQ PRN ×2 (04:02→23:17)
[2018-12-31 05:18] LABS: EOSINOPHILS % (AUTO) 2.5 % (0.0-3.0); HEMATOCRIT 28.3 % (37.0-47.0); HEMOGLOBIN 9.3 G/DL (12.0-16.0); LYMPHOCYTES % (AUTO) 8.8 % (20.0-45.0); MEAN CORPUSCULAR VOLUME 92 FL (80-99); MONOCYTES % (AUTO) 6.9 % (1.0-10.0); NEUTROPHILS % (AUTO) 80.8 % (45.0-75.0); PLATELET COUNT 776 K/UL (150-450); RED BLOOD COUNT 3.07 M/UL (4.20-5.40); RED CELL DISTRIBUTION WIDTH 13.1 % (11.6-14.8)
[2018-12-31] MEDS: D5 1/2NS w/KCl 40meq 1000ml 1,000 ML IV SCH (05:29)
[2018-12-31 05:36] LABS: ALANINE AMINOTRANSFERASE 8 U/L (12-78); ALBUMIN 1.9 G/DL (3.4-5.0); ALBUMIN/GLOBULIN RATIO 0.4 (1.0-2.7); ALKALINE PHOSPHATASE 332 U/L (46-116); ANION GAP 10 mmol/L (5-15); ASPARTATE AMINO TRANSFERASE 11 U/L (15-37); BILIRUBIN,TOTAL 0.2 MG/DL (0.2-1.0); BLOOD UREA NITROGEN 18 mg/dL (7-18); CALCIUM 9.4 MG/DL (8.5-10.1); CARBON DIOXIDE 24 MMOL/L (21-32); CHLORIDE 104 MMOL/L (98-107); CREATININE 1.1 MG/DL (0.55-1.30); POTASSIUM 4.2 MMOL/L (3.5-5.1); SODIUM 138 MMOL/L (136-145)
[2018-12-31] MEDS: NovoLOG Insulin Flexpen SUBQ SCH ×3 (05:56→17:25)
[2018-12-31] MEDS: Levothyroxine 125mcg tab ORAL SCH (05:58)
--- NOTE | 2018-12-31 07:34 | NUR ---
NURSE NOTES: awake/alert. no c/o pain. in no distress.
--- NOTE | 2018-12-31 08:30 | NUR ---
NURSE NOTES: VOMITTED MODERATE AMOUNT OF BREAKFAST FOOD PREVIOUSLY TAKEN.
[2018-12-31] MEDS: Nystatin Susp 500,000 units/5ml ORAL SCH ×2 (08:33→12:43)
[2018-12-31] MEDS: Metoprolol Succinate XL 25mg tab ORAL SCH (08:34)
[2018-12-31] MEDS: Mycophenolate 250mg cap ORAL SCH ×2 (08:34→20:19)
[2018-12-31] MEDS: Lisinopril 20mg tab ORAL SCH (08:35)
[2018-12-31] MEDS: Pantoprazole Inj IVP SCH (08:35)
--- NOTE | 2018-12-31 10:15 | NUR ---
CASE MANAGEMENT:REVIEW 12/30/18 SI: POD #12 S/P RESECTION,ENTEROENTEROSTOMY AND CREATION OF SUKHI ILEOSTOMY 98.9 84 18 154/72 98% ON RA H/H-9.1/27.8 PLT+648 IS: IV PROTONIX QD IV ZOSYN Q8HR LISINOPRIL PO BID NORVASC PO QPM CELLCEPT PO Q12 TOPROL XL PO QD IV VENOFER QHS DILAUDID SQ Q4HRS PRN IVF@25/HR TPN/IL @74/HR : MED/SURG STATUS 3 [facility] DCP: FROM HOME PLAN: STAT CT ABD/PELVIS D/T ABDOMINAL DISTENTION START CLEAR LIQUID AND ADVANCE TO BCIR LOW RESIDUE DIET 12/31/18 SI: POD #13 S/P RESECTION,ENTEROENTEROSTOMY AND CREATION OF SUKHI ILEOSTOMY 98.8 85 20 144/71 96% ON RA WBC+11.0 H/H-9.3/28.3 PLT+776 IS: TPN/IL @ 74/HR IV ZOSYN Q8HRS IV VENOFER QHS IV PROTONIX QD IVF@25/HR LISINOPRIL PO QD NORVASC PO QPM TOPROL XL PO QD CELLCEPT PO Q12 DILAUDID SQ Q4HRS PRN : MED/SURG STATUS 3 [facility]
--- NOTE | 2018-12-31 10:42 | General Progress Note ---
Assessment/Plan Status: unchanged Assessment/Plan: (1) Malfunctioning Kock Pouch (2) History of liver transplant ICD Codes: Z94.4 - Liver transplant status Assessment/Plan 1. Malfunctioning Kock pouch continent ileostomy with increasing difficulty with intubation and increasing incontinence of stool and gas. 2. History of ulcerative colitis. 3. History of primary sclerosing cholangitis. 4. STATUS POST MULTIPLE ABDOMINAL OPERATIONS: 4.1. Proctocolectomy and Kock pouch continent ileostomy in 1978. 4.2. Total abdominal hysterectomy and bilateral salpingo-oophorectomy in 1983. 4.3. Appendectomy age 15. 4.4. Cholecystectomy in 1985. 4.5. Liver transplantation in 1999. 4.6. Laparotomy with revision of Kock pouch and repair of pouch cutaneous fistula in 2010. Status post exploratory laparotomy with lysis of the adhesions and continent pouch repair continue zosyn zofran prn, compazine prn fu LFTs>>> stable now endoscopy if necessary on TPN cellcept 750 BID prograft 3 gm per day monitor for lytes protonix on reg diet>>> minimal po intake will fu labs repeat CT reviewed Subjective ROS Limited/Unobtainable: Yes Allergies: Coded Allergies: CODEINE (Verified Allergy, Severe, 12/17/18) Face contractions HYDROMORPHONE (Verified Allergy, Severe, Itching, 12/17/18) Itching whole body METOCLOPRAMIDE (Verified Allergy, Severe, 12/17/18) Face contractions MORPHINE (Verified Allergy, Severe, Shortness of Breath, 12/17/18) SULFA (SULFONAMIDE ANTIBIOTICS) (Verified Allergy, Severe, 12/17/18) Face contractions Subjective abd pain Objective Last 24 Hour Vital Signs Date Time Temp Pulse Resp B/P (MAP) Pulse Ox O2 Delivery O2 Flow Rate FiO2 12/31/18 08:35 144/71 12/31/18 08:34 85 144/71 12/31/18 08:19 Room Air 12/31/18 08:00 98.8 85 20 144/71 (95) 96 12/31/18 04:00 98.2 84 18 157/82 (107) 97 12/31/18 00:00 98.4 82 17 141/77 (98) 96 12/30/18 21:00 Room Air 12/30/18 20:00 98.9 84 17 154/74 (100) 95 9/10/19 18:39 98.9 12/30/18 16:34 86 156/78 12/30/18 16:00 98.9 86 18 156/78 (104) 96 12/30/18 14:22 98.9 12/30/18 12:00 98.9 84 18 154/72 (99) 98 Intake and Output 12/30/18 12/31/18 19:00 07:00 Intake Total 1688 ml 891 ml Output Total 1700 ml 1600 ml Balance -12 ml -709 ml Intake Oral 500 ml IV Total 1188 ml 891 ml Output Urine Total 950 ml 1000 ml Other 750 ml 600 ml # Voids 12 5 Laboratory Tests 12/31/18 04:35: White Blood Count 11.0H, Red Blood Count 3.07L, Hemoglobin 9.3L, Hematocrit 28.3L, Mean Corpuscular Volume 92, Mean Corpuscular Hemoglobin 30.2, Mean Corpuscular Hemoglobin Concent 32.8, Red Cell Distribution Width 13.1, Platelet Count 776H, Mean Platelet Volume 5.8L, Neutrophils (%) (Auto) 80.8H, Lymphocytes (%) (Auto) 8.8L, Monocytes (%) (Auto) 6.9, Eosinophils (%) (Auto) 2.5, Basophils (%) (Auto) 1.0, Sodium Level 138, Potassium Level 4.2, Chloride Level 104, Carbon Dioxide Level 24, Anion Gap 10, Blood Urea Nitrogen 18, Creatinine 1.1, Estimat Glomerular Filtration Rate 49.6, Glucose Level 162H, Calcium Level 9.4, Total Bilirubin 0.2, Aspartate Amino Transf (AST/SGOT) 11L, Alanine Aminotransferase (ALT/SGPT) 8L, Alkaline Phosphatase 332H, Total Protein 6.7, Albumin 1.9L, Globulin 4.8, Albumin/Globulin Ratio 0.4L Height (Feet): 5 Height (Inches): 5.00 Weight (Pounds): 136 General Appearance: alert EENT: normal ENT inspection Neck: supple Cardiovascular: normal rate Respiratory/Chest: decreased breath sounds Abdomen: soft, decreased bowel sounds, distended, tender Extremities: non-tender Max Dozier MD Dec 31, 2018 10:42
--- NOTE | 2018-12-31 11:18 | Infectious Diseases Prog Note ---
Assessment/Plan Assessment/Plan ASSESSMENT AND PLAN: 1. leukocytosis, fevers, ? sepsis, ? source, ? intra-abdominal, ? line - blood cultures negative - zosyn - mild leukocytosis, fevers resolved, blood cultures negative, f/u CT scan noted - monitor labs, wbc 2. 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 3. Liver transplantation. 4. Sclerosing cholangitis. 5. Ulcerative colitis. 6. The patient is anemic. 7. History of cholecystectomy, appendectomy, hysterectomy, and proctocolectomy. 8. History of multiple abdominal operations. 9. Allergies to codeine, hydromorphone, metoclopramide, morphine, and sulfa. 10. Family doctor is Noncontributory. 11. Social history is negative. 12. MAR was noted. 13. Case discussed with RN. 14. Case discussed with the patient. 15. Continue treatment per Dr. Sotomayor and consultants. Subjective Constitutional: Denies: fever Respiratory: Denies: shortness of breath Cardiovascular: Denies: chest pain Gastrointestinal/Abdominal: Denies: nausea, vomiting Neurologic: Denies: headache Psychiatric: Denies: depression Skin: Denies: rash Hematologic: Denies: bleeding Musculoskeletal: Reports: pain - controlled Allergies: Coded Allergies: CODEINE (Verified Allergy, Severe, 12/17/18) Face contractions HYDROMORPHONE (Verified Allergy, Severe, Itching, 12/17/18) Itching whole body METOCLOPRAMIDE (Verified Allergy, Severe, 12/17/18) Face contractions MORPHINE (Verified Allergy, Severe, Shortness of Breath, 12/17/18) SULFA (SULFONAMIDE ANTIBIOTICS) (Verified Allergy, Severe, 12/17/18) Face contractions Objective Vital Signs Last 24 Hour Vital Signs Date Time Temp Pulse Resp B/P (MAP) Pulse Ox O2 Delivery O2 Flow Rate FiO2 12/31/18 08:35 144/71 12/31/18 08:34 85 144/71 12/31/18 08:19 Room Air 12/31/18 08:00 98.8 85 20 144/71 (95) 96 12/31/18 04:00 98.2 84 18 157/82 (107) 97 12/31/18 00:00 98.4 82 17 141/77 (98) 96 12/30/18 21:00 Room Air 12/30/18 20:00 98.9 84 17 154/74 (100) 95 12/30/18 18:39 98.9 12/30/18 16:34 86 156/78 12/30/18 16:00 98.9 86 18 156/78 (104) 96 12/30/18 14:22 98.9 12/30/18 12:00 98.9 84 18 154/72 (99) 98 Height (Feet): 5 Height (Inches): 5.00 Weight (Pounds): 136 General Appearance: no acute distress HEENT: normocephalic, atraumatic, anicteric, mucous membranes moist Respiratory/Chest: lungs clear, normal breath sounds, no respiratory distress, no accessory muscle use Cardiovascular: normal rate, regular rhythm, no gallop/murmur Abdomen: normal bowel sounds, soft, non tender, no organomegaly Objective CT scan abdomen and pelvis: IMPRESSION: Status post recent abdominal surgery with creation of a left lower quadrant Yajaira ileostomy. Good bowel and bag opacification with no evidence of bowel obstruction. Unusual, markedly distended unopacified loop of bowel in the pelvis. Although unopacified, this does not appear to be an abscess as there is a wall and other characteristics more in keeping with bowel. Would consider a large diverticulum or possibly remnant of the previous Kock pouch or part of the small bowel leading to the old pouch as those segments are sometimes quite distended. Status post liver transplant. Status post cholecystectomy. Mild basal atelectasis. Chest x-ray - no pna, report noted CT abdomen/pelvis - 12/30/18 - Impression: Postsurgical changes, as described Unusual tubular structure filled mostly with gas but also some fluid communicating with the small bowel at the site of a right lower quadrant enteroenterostomy. Uncertain as to whether this represents an unusual large diverticulum, a true extraluminal gas collection, or a portion of an old continent ileostomy pouch. This is also previously described Dilated proximal small bowel proximal to the enteroenterostomy with slow forward propulsion of contents. Partial small bowel obstruction not completely excludable although unlikely given evidence of forward propulsion of contrast and filling of the ileostomy on prior 12/26/2018 exam; findings most likely functional in nature. Correlate with clinical findings Small anterior pelvic and deep pelvic fluid pockets, most likely represent retained postoperative fluid collections. Abscess as etiology of any of these not completely excludable; correlation with clinical findings recommended Postsurgical changes of the liver status post transplantation Punctate nonobstructing bilateral intrarenal calculi Bilateral basilar pulmonary parenchymal atelectasis and/or scarring Images previously reviewed in person with Dr. Sotomayor Microbiology Date/Time Source Procedure Growth Status 12/27/18 13:38 Blood Blood Culture - Preliminary NO GROWTH AFTER 72 HOURS Resulted 12/27/18 10:15 Urine,Clean Catch Urine Culture - Final NO GROWTH AFTER 48 HOURS Complete Laboratory Tests Test 12/31/18 04:35 White Blood Count 11.0 K/UL (4.8-10.8) H Red Blood Count 3.07 M/UL (4.20-5.40) L Hemoglobin 9.3 G/DL (12.0-16.0) L Hematocrit 28.3 % (37.0-47.0) L Mean Corpuscular Volume 92 FL (80-99) Mean Corpuscular Hemoglobin 30.2 PG (27.0-31.0) Mean Corpuscular Hemoglobin Concent 32.8 G/DL (32.0-36.0) Red Cell Distribution Width 13.1 % (11.6-14.8) Platelet Count 776 K/UL (150-450) H Mean Platelet Volume 5.8 FL (6.5-10.1) L Neutrophils (%) (Auto) 80.8 % (45.0-75.0) H Lymphocytes (%) (Auto) 8.8 % (20.0-45.0) L Monocytes (%) (Auto) 6.9 % (1.0-10.0) Eosinophils (%) (Auto) 2.5 % (0.0-3.0) Basophils (%) (Auto) 1.0 % (0.0-2.0) Sodium Level 138 MMOL/L (136-145) Potassium Level 4.2 MMOL/L (3.5-5.1) Chloride Level 104 MMOL/L (98-107) Carbon Dioxide Level 24 MMOL/L (21-32) Anion Gap 10 mmol/L (5-15) Blood Urea Nitrogen 18 mg/dL (7-18) Creatinine 1.1 MG/DL (0.55-1.30) Estimat Glomerular Filtration Rate 49.6 mL/min (>60) Glucose Level 162 MG/DL (74-106) H Calcium Level 9.4 MG/DL (8.5-10.1) Total Bilirubin 0.2 MG/DL (0.2-1.0) Aspartate Amino Transf (AST/SGOT) 11 U/L (15-37) L Alanine Aminotransferase (ALT/SGPT) 8 U/L (12-78) L Alkaline Phosphatase 332 U/L (46-116) H Total Protein 6.7 G/DL (6.4-8.2) Albumin 1.9 G/DL (3.4-5.0) L Globulin 4.8 g/dL Albumin/Globulin Ratio 0.4 (1.0-2.7) L Current Medications Medications (Trade) Dose Ordered Sig/Kajal Route PRN Reason Start Time Stop Time Status Last Admin Dose Admin Acetaminophen (Tylenol) 650 mg Q4H PRN ORAL Mild Pain/Temp > 100.2 12/26/18 21:00 01/25/19 20:59 12/26/18 21:11 Acetaminophen (Tylenol) 650 mg Q6H PRN ORAL headache 12/17/18 14:45 01/16/19 14:44 12/17/18 14:47 Al Hydroxide/Mg Hydroxide (Mylanta) 30 ml Q6H PRN ORAL dyspepsia 12/28/18 09:30 01/27/19 09:29 12/30/18 20:58 Amlodipine Besylate (Norvasc) 2.5 mg QPM ORAL 12/30/18 16:30 01/29/19 16:29 12/30/18 16:34 Barium Sulfate (Readi-Cat 2) 450 ml NOW PRN ORAL Radiology Procedure 12/30/18 07:45 01/01/19 07:44 Chlorhexidine Gluconate (Yulia-Hex 2%) 1 applic DAILY@2000 TOPIC 12/17/18 20:00 01/16/19 19:59 12/30/18 20:20 Clonidine HCl (Catapres Tab) 0.1 mg Q6H PRN SL SBP>150 mmHg 12/22/18 22:00 01/21/19 21:59 12/26/18 16:09 Dextrose 1,000 ml @ 0 mls/hr Q24H PRN IV PN interrupted or unavailable 12/20/18 20:00 01/19/19 19:59 Dextrose (Dextrose 50%) 25 ml Q30M PRN IV Hypoglycemia 12/22/18 12:45 01/21/19 12:44 Dextrose (Dextrose 50%) 50 ml Q30M PRN IV Hypoglycemia 12/22/18 12:45 01/21/19 12:44 Dextrose/ Electrolytes 1,000 ml @ 25 mls/hr Q24H IV 12/24/18 08:00 01/21/19 07:59 12/31/18 05:29 Diphenhydramine HCl (Benadryl) 50 mg Q4H PRN ORAL Itching 12/27/18 20:00 01/26/19 19:59 12/27/18 20:37 Fat Emulsion Intravenous 216 ml/Amino Acids/ Electrolytes/ Dextrose 1,776 ml @ 74 mls/hr Q24H IV 12/30/18 20:00 01/29/19 19:59 12/30/18 20:25 Hydromorphone HCl (Dilaudid) 0.5 mg Q4H PRN SUBQ Severe Breakthru Pain (>7) 12/29/18 12:30 01/05/19 12:29 12/31/18 04:02 Insulin Aspart (NovoLOG) Q6HR SUBQ 12/22/18 18:00 01/21/19 17:59 12/31/18 05:56 Iron Sucrose 100 mg/Sodium Chloride 60 ml @ 240 mls/hr BEDTIME IVPB 12/29/18 21:00 01/02/19 21:14 12/30/18 20:22 Levothyroxine Sodium (Synthroid) 125 mcg DAILY@0630 ORAL 12/18/18 06:30 01/17/19 06:29 12/31/18 05:58 Lisinopril (Prinivil) 40 mg DAILY ORAL 12/31/18 09:00 01/30/19 08:59 12/31/18 08:35 Metoprolol Succinate (Toprol XL) 25 mg DAILY ORAL 12/24/18 09:00 01/23/19 08:59 12/31/18 08:34 Miconazole Nitrate (Monistat) 1 applic BEDTIME VAGIN 12/27/18 21:00 01/26/19 20:59 12/30/18 20:23 Mycophenolate Mofetil (Cellcept) 750 mg Q12HR ORAL 12/25/18 09:00 01/24/19 08:59 12/31/18 08:34 Nystatin (Nystatin) 5 ml QID ORAL 12/27/18 09:00 01/03/19 08:59 12/31/18 08:33 Ondansetron HCl (Zofran) 4 mg Q6H PRN IVP Nausea & Vomiting 12/21/18 07:15 01/20/19 07:14 12/31/18 03:10 Oxycodone/ Acetaminophen (Percocet 10/325) 1 tab Q4H PRN ORAL pain 4-10 12/28/18 12:30 01/04/19 12:29 12/31/18 05:41 Pantoprazole (Protonix) 40 mg DAILY IVP 12/26/18 09:00 01/25/19 08:59 12/31/18 08:35 Piperacillin Sod/ Tazobactam Sod 3.375 gm/Dextrose 100 ml @ 25 mls/hr EVERY 8 HOURS IVPB 12/30/18 14:00 01/04/19 13:59 12/31/18 05:28 Prochlorperazine (Compazine) 10 mg Q6H PRN IVP Nausea & Vomiting 12/20/18 09:15 01/19/19 09:14 12/29/18 12:04 Tacrolimus (Prograf) 1 mg DAILY ORAL 12/19/18 09:00 01/18/19 08:59 12/31/18 08:34 Tacrolimus (Prograf) 2 mg BEDTIME ORAL 12/17/18 21:00 01/16/19 20:59 12/30/18 20:22 Trazodone HCl (Desyrel) 25 mg HSPRN PRN ORAL INSOMNIA 12/30/18 16:15 01/29/19 16:14 12/30/18 22:50 Philly Shelby MD Dec 31, 2018 11:18
--- NOTE | 2018-12-31 13:07 | NUR ---
PT NOTE Attempted several times to see patient for PT treatment. Patient declining to participate at this time, states she will walk later. Will follow up tomorrow.
--- NOTE | 2018-12-31 13:35 | NUR ---
RD ASSESSMENT & RECOMMENDATIONS SEE CARE ACTIVITY FOR COMPLETE ASSESSMENT DAILY ESTIMATED NEEDS: Needs based on Surgery 61kg 25-30 kcals/kg 6995-5767 total kcals 1-2 g protein/kg 61-122 g total protein 25-30 mL/kg 4184-9752 total fluid mLs NUTRITION DIAGNOSIS: Altered GI fxn r/t h/o UC and malfunctioning kock pouch as evidenced by pt is now s/p kock pouch takedown w/ creation of Yajaira ileo, diet now advanced to BCIR Low Residue diet, remains on TPN. CURRENT DIET:BCIR LOW RESIDUE DIET PO DIET RECOMMENDATIONS: LOW FIBER/LOW RESIDUE PARENTERAL NUTRITION RECOMMENDATIONS: D/AA Rate: 65 IL Rate: 9 Total Rate: 74 Volume: 1776 % Dextrose: 18 % AA: 5.5 Energy (kcals/kg): 1730 Protein (g/kg protein): 86 Nonprotein KCALS: 1386 GIR (mg CHO/kg/min): 3.2 % Fat KCALS: 25 NCP: N Ratio: 101:1 TPN Comment: - Rec to taper down TPN :TPN at goal meets 100% est kcal/prot needs (28 kcal/kg and 1.4g prot/kg), pt now on BCIR Low residue diet ADDITIONAL RECOMMENDATIONS: 1) Obtain a standing weight as pt is able to ambulate in halls 2) Monitor lytes, BGs, and LFTs w/ TPN Replete lytes as needed 3) Monitor LFT's weekly 4) Taper down TPN- pt now on BCIR low residue diet 5) Monitor PO intake and tolerance 6) Consider DC D5 IVF for improved BG control
--- NOTE | 2018-12-31 15:30 | NUR ---
NURSE NOTES: ambulated out e montaño.
--- NOTE | 2018-12-31 16:00 | NUR ---
*-* INSURANCE *-* ALL AVAILABLE CLINICALS HAVE BEEN FAXED TO: [employer] NORTONM: ANKIT [place] P:[phone] F: [phone]
--- NOTE | 2018-12-31 16:05 | Cardiology Progress Note ---
Assessment/Plan Status Narrative 1. Malfunctioning Kock pouch continent ileostomy. 2. History of ulcerative colitis. 3. History of primary sclerosing cholangitis. 4. Status post multiple abdominal operations. 4.1. Appendectomy in 1964. 4.2. Proctocolectomy and Kock pouch in 1978. 4.3. Total abdominal hysterectomy and bilateral salpingo-oophorectomy 1983 4.4. Cholecystectomy in 1985. 4.5. Orthotopic liver transplantation in 1999. 4.6. Revision of Kock pouch and repair of fistula in 2010. HTN- New onset-improved with meds Tachycardia- improved with IV Fluids and Beta Blockers. BP slightly elevated - probably due to pain/discomfort- now on Norvasc / Lisinopril and Metoprolol Assessment/Plan Clonidine 0.1 mg Q6h PRN Metoprolol 25 mg QD Zestril 40 mg QD. Norvasc 2.5 mg QD If BP remains high, may increase Meds pain management.\ Encouraged increased ambulation. Discussed with Dr. Sotomayor. Subjective Cardiovascular: Reports: no symptoms Respiratory: Reports: no symptoms Gastrointestinal/Abdominal: Reports: abdomen distended, abdominal pain Genitourinary: Reports: no symptoms Subjective Had fever on ABx. Tolerating PO liquids, bu vomited with solid food x2 Abdominal pain. WBC elevated Was started on Norvasc 2.5 mg/day Objective Last 24 Hour Vital Signs Date Time Temp Pulse Resp B/P (MAP) Pulse Ox O2 Delivery O2 Flow Rate FiO2 12/31/18 14:29 98.9 12/31/18 12:00 98.9 82 18 120/68 (85) 97 12/31/18 08:35 144/71 12/31/18 08:34 85 144/71 12/31/18 08:19 Room Air 12/31/18 08:00 98.8 85 20 144/71 (95) 96 12/31/18 04:00 98.2 84 18 157/82 (107) 97 12/31/18 00:00 98.4 82 17 141/77 (98) 96 12/30/18 21:00 Room Air 12/30/18 20:00 98.9 84 17 154/74 (100) 95 12/30/18 16:34 86 156/78 Cardiovascular: normal rate, regular rhythm, no gallop/murmur Respiratory/Chest: lungs clear Abdomen: hypoactive bowel sounds, distended, tender, other - good output from ileostomy Intake and Output 12/30/18 12/31/18 19:00 07:00 Intake Total 1688 ml 891 ml Output Total 1700 ml 1600 ml Balance -12 ml -709 ml Intake Oral 500 ml IV Total 1188 ml 891 ml Output Urine Total 950 ml 1000 ml Other 750 ml 600 ml # Voids 12 5 Laboratory Tests Test 12/31/18 04:35 White Blood Count 11.0 K/UL (4.8-10.8) H Red Blood Count 3.07 M/UL (4.20-5.40) L Hemoglobin 9.3 G/DL (12.0-16.0) L Hematocrit 28.3 % (37.0-47.0) L Mean Corpuscular Volume 92 FL (80-99) Mean Corpuscular Hemoglobin 30.2 PG (27.0-31.0) Mean Corpuscular Hemoglobin Concent 32.8 G/DL (32.0-36.0) Red Cell Distribution Width 13.1 % (11.6-14.8) Platelet Count 776 K/UL (150-450) H Mean Platelet Volume 5.8 FL (6.5-10.1) L Neutrophils (%) (Auto) 80.8 % (45.0-75.0) H Lymphocytes (%) (Auto) 8.8 % (20.0-45.0) L Monocytes (%) (Auto) 6.9 % (1.0-10.0) Eosinophils (%) (Auto) 2.5 % (0.0-3.0) Basophils (%) (Auto) 1.0 % (0.0-2.0) Sodium Level 138 MMOL/L (136-145) Potassium Level 4.2 MMOL/L (3.5-5.1) Chloride Level 104 MMOL/L (98-107) Carbon Dioxide Level 24 MMOL/L (21-32) Anion Gap 10 mmol/L (5-15) Blood Urea Nitrogen 18 mg/dL (7-18) Creatinine 1.1 MG/DL (0.55-1.30) Estimat Glomerular Filtration Rate 49.6 mL/min (>60) Glucose Level 162 MG/DL (74-106) H Calcium Level 9.4 MG/DL (8.5-10.1) Total Bilirubin 0.2 MG/DL (0.2-1.0) Aspartate Amino Transf (AST/SGOT) 11 U/L (15-37) L Alanine Aminotransferase (ALT/SGPT) 8 U/L (12-78) L Alkaline Phosphatase 332 U/L (46-116) H Total Protein 6.7 G/DL (6.4-8.2) Albumin 1.9 G/DL (3.4-5.0) L Globulin 4.8 g/dL Albumin/Globulin Ratio 0.4 (1.0-2.7) L Micha Ziegler MD Dec 31, 2018 16:05
--- NOTE | 2018-12-31 16:08 | General Progress Note ---
Progress Note Progress Note AVSS Intermittent nausea with small emesis, otherwise eating small amounts low residue diet but gets early satiety. Abdomen remains somewhat distended. Incision clean, Stoma appliance leaks in 1- 2 days Urine 2300 Ileostomy 1350 WBC and platelets both up Alk phos down Imp. Possible intra-abdominal collection Plan: f/u labs, ID eval, continue TPN Hopefully will not need to be explored Lars Sotomayor MD Dec 31, 2018 16:08
--- NOTE | 2018-12-31 16:30 | NUR ---
NURSE NOTES: ILEOSTOMY BAG LEAKING. SKIN CARE DONE. ILEOSTOMY BAG CHANGED.
--- NOTE | 2018-12-31 19:00 | NUR ---
NURSE NOTES: NO SIGNIFICANT ACUTE CHANGES. STABLE.
--- NOTE | 2018-12-31 19:35 | NUR ---
NURSE NOTES: Report taken from PATRICK Henning. patient is awake and ambulating room, A&Ox4. No signs of distress on room air. Having some complaints of pain at the stoma site, no radiating pain, 10/29. Stoma bright red, seal for ileo complete and not leaking, bag intact, draining well. Supplies at bedside for bag replacement, will endorse to day shift to follow up with wound care nurse to check bag and replace if necessary with proper materials. Skin around stoma and bag is intact, no other issues. Bed in lowest position, call light within reach.
--- NOTE | 2018-12-31 19:37 | NUR ---
HAND-OFF: Report given to Adriana BERUMEN RN.
[2018-12-31] MEDS: Fat Emulsion Iv 20% 216 ML in Tpn 1,560 ML IV SCH (20:05)
[2018-12-31] MEDS: Dyna-Hex 2% Top Sol 2oz TOPIC SCH (20:25)
[2018-12-31] MEDS: Iron Sucrose 100 MG in NS 55 ML IVPB SCH (20:25)
[2019-01-01] VITALS: BP 149/74
[2019-01-01] MEDS: NovoLOG Insulin Flexpen SUBQ SCH ×4 (00:01→18:25)
[2019-01-01] MEDS: TraZODone HCl 25 mg tablet ORAL PRN (00:03)
[2019-01-01] MEDS: Levothyroxine 125mcg tab ORAL SCH (06:27)
[2019-01-01 06:41] LABS: BASOPHILS % (AUTO) 0.8 % (0.0-2.0); EOSINOPHILS % (AUTO) 2.6 % (0.0-3.0); HEMATOCRIT 28.9 % (37.0-47.0); HEMOGLOBIN 9.4 G/DL (12.0-16.0); LYMPHOCYTES % (AUTO) 8.9 % (20.0-45.0); MEAN CORPUSCULAR VOLUME 93 FL (80-99); MONOCYTES % (AUTO) 5.4 % (1.0-10.0); NEUTROPHILS % (AUTO) 82.3 % (45.0-75.0); PLATELET COUNT 779 K/UL (150-450); RED BLOOD COUNT 3.11 M/UL (4.20-5.40); RED CELL DISTRIBUTION WIDTH 12.9 % (11.6-14.8); WHITE BLOOD COUNT 10.4 K/UL (4.8-10.8)
[2019-01-01 07:10] LABS: ALANINE AMINOTRANSFERASE 17 U/L (12-78); ALBUMIN 1.9 G/DL (3.4-5.0); ALBUMIN/GLOBULIN RATIO 0.4 (1.0-2.7); ALKALINE PHOSPHATASE 293 U/L (46-116); ANION GAP 10 mmol/L (5-15); ASPARTATE AMINO TRANSFERASE 12 U/L (15-37); BILIRUBIN,TOTAL 0.2 MG/DL (0.2-1.0); BLOOD UREA NITROGEN 19 mg/dL (7-18); CALCIUM 9.5 MG/DL (8.5-10.1); CARBON DIOXIDE 24 MMOL/L (21-32); CHLORIDE 104 MMOL/L (98-107); CREATININE 1.2 MG/DL (0.55-1.30); SODIUM 138 MMOL/L (136-145)
--- NOTE | 2019-01-01 07:30 | NUR ---
NURSE NOTES: Patient is in bed awake and able to verbalize needs. Stable. Denies pain or SOB. Patient encouraged to use call light for assistance, verbalized understanding. PICC line running TPN and IVF as ordered. Will speak to wound care nurse. Patient is in bed in locked and lowest position with call light within reach. Will continue to monitor.
--- NOTE | 2019-01-01 07:45 | NUR ---
HAND-OFF: Report given to PATRICK Cruz. Patient is awake and in bed, endorsed to RN to contact prototype special build to assess ileo bag and site further.
[2019-01-01 08:00] VITALS: BP 143/69
[2019-01-01] MEDS: Mycophenolate 250mg cap ORAL SCH ×2 (08:32→20:53)
[2019-01-01] MEDS: Pantoprazole Inj IVP SCH (08:32)
[2019-01-01] MEDS: Lisinopril 20mg tab ORAL SCH (08:34)
[2019-01-01] MEDS: Metoprolol Succinate XL 25mg tab ORAL SCH (08:34)
--- NOTE | 2019-01-01 10:14 | GI Progress Note ---
Assessment/Plan Problems: (1) Malfunctioning Kock Pouch (2) History of liver transplant ICD Codes: Z94.4 - Liver transplant status SNOMED: [id number] Status: unchanged Status Narrative Discussed with Dr. Dozier. Assessment/Plan Assessment/Plan 1. Malfunctioning Kock pouch continent ileostomy with increasing difficulty with intubation and increasing incontinence of stool and gas. 2. History of ulcerative colitis. 3. History of primary sclerosing cholangitis. 4. STATUS POST MULTIPLE ABDOMINAL OPERATIONS: 4.1. Proctocolectomy and Kock pouch continent ileostomy in 1978. 4.2. Total abdominal hysterectomy and bilateral salpingo-oophorectomy in 1983. 4.3. Appendectomy age 15. 4.4. Cholecystectomy in 1985. 4.5. Liver transplantation in 1999. 4.6. Laparotomy with revision of Kock pouch and repair of pouch cutaneous fistula in 2010. Status post exploratory laparotomy with lysis of the adhesions and continent pouch repair continue zosyn zofran prn, compazine prn fu LFTs>>> stable now endoscopy if necessary on TPN cellcept 750 BID prograft 3 gm per day monitor for lytes protonix on reg diet>>> minimal po intake will fu labs repeat CT reviewed The patient was seen and examined at bedside and all new and available data was reviewed in the patients chart. I agree with the above findings, impression and plan. (Patient seen earlier today. Signature stamp does not reflect patient encounter time.). - Max Dozier MD Subjective Subjective denies any pain Objective Last 24 Hour Vital Signs Date Time Temp Pulse Resp B/P (MAP) Pulse Ox O2 Delivery O2 Flow Rate FiO2 01/01/19 08:34 143/69 01/01/19 08:34 92 143/69 01/01/19 00:00 98.4 84 18 149/74 (99) 98 12/31/18 21:00 Room Air 12/31/18 20:00 98.7 88 18 154/76 (102) 97 12/31/18 16:20 92 155/76 12/31/18 16:00 99.1 92 20 155/76 (102) 97 12/31/18 14:29 98.9 12/31/18 12:00 98.9 82 18 120/68 (85) 97 Intake and Output 12/31/18 01/01/19 19:00 07:00 Intake Total 1988 ml 1906 ml Output Total 1350 ml 2075 ml Balance 638 ml -169 ml Intake Oral 800 ml 830 ml IV Total 1188 ml 1076 ml Output Urine Total 850 ml 1675 ml Emesis 100 ml Other 400 ml 400 ml # Voids 5 7 Laboratory Tests Test 01/01/19 05:05 White Blood Count 10.4 K/UL (4.8-10.8) Red Blood Count 3.11 M/UL (4.20-5.40) L Hemoglobin 9.4 G/DL (12.0-16.0) L Hematocrit 28.9 % (37.0-47.0) L Mean Corpuscular Volume 93 FL (80-99) Mean Corpuscular Hemoglobin 30.2 PG (27.0-31.0) Mean Corpuscular Hemoglobin Concent 32.5 G/DL (32.0-36.0) Red Cell Distribution Width 12.9 % (11.6-14.8) Platelet Count 779 K/UL (150-450) H Mean Platelet Volume 5.4 FL (6.5-10.1) L Neutrophils (%) (Auto) 82.3 % (45.0-75.0) H Lymphocytes (%) (Auto) 8.9 % (20.0-45.0) L Monocytes (%) (Auto) 5.4 % (1.0-10.0) Eosinophils (%) (Auto) 2.6 % (0.0-3.0) Basophils (%) (Auto) 0.8 % (0.0-2.0) Sodium Level 138 MMOL/L (136-145) Potassium Level 4.0 MMOL/L (3.5-5.1) Chloride Level 104 MMOL/L (98-107) Carbon Dioxide Level 24 MMOL/L (21-32) Anion Gap 10 mmol/L (5-15) Blood Urea Nitrogen 19 mg/dL (7-18) H Creatinine 1.2 MG/DL (0.55-1.30) Estimat Glomerular Filtration Rate 44.8 mL/min (>60) Glucose Level 159 MG/DL (74-106) H Calcium Level 9.5 MG/DL (8.5-10.1) Total Bilirubin 0.2 MG/DL (0.2-1.0) Aspartate Amino Transf (AST/SGOT) 12 U/L (15-37) L Alanine Aminotransferase (ALT/SGPT) 17 U/L (12-78) Alkaline Phosphatase 293 U/L (46-116) H Total Protein 6.7 G/DL (6.4-8.2) Albumin 1.9 G/DL (3.4-5.0) L Globulin 4.8 g/dL Albumin/Globulin Ratio 0.4 (1.0-2.7) L Height (Feet): 5 Height (Inches): 5.00 Weight (Pounds): 136 General Appearance: WD/WN, no apparent distress, alert Cardiovascular: normal rate Respiratory/Chest: normal breath sounds, no respiratory distress Abdominal Exam: normal bowel sounds, non tender, soft Extremities: normal range of motion, non-tender Jeyson Luna NP Jan 01, 2019 10:14
[2019-01-01 12:00] VITALS: BP 116/65
--- NOTE | 2019-01-01 13:17 | Infectious Diseases Prog Note ---
Assessment/Plan Assessment/Plan ASSESSMENT AND PLAN: 1. leukocytosis, fevers, ? sepsis, ? source, ? intra-abdominal, ? line - blood cultures negative, elevated platelets - zosyn - day # 5 - mild leukocytosis, fevers resolved, blood cultures negative, f/u CT scan noted - monitor labs, wbc, platelets - d/w Dr. Sotomayor and patient 2. 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 3. Liver transplantation. 4. Sclerosing cholangitis. 5. Ulcerative colitis. 6. The patient is anemic. 7. History of cholecystectomy, appendectomy, hysterectomy, and proctocolectomy. 8. History of multiple abdominal operations. 9. Allergies to codeine, hydromorphone, metoclopramide, morphine, and sulfa. 10. Family doctor is Noncontributory. 11. Social history is negative. 12. MAR was noted. 13. Case discussed with RN. 14. Case discussed with the patient. 15. Continue treatment per Dr. Sotomayor and consultants. Subjective Constitutional: Denies: fever HEENT: Denies: congestion Respiratory: Denies: shortness of breath Cardiovascular: Denies: chest pain Gastrointestinal/Abdominal: Reports: other - + ileostomy, pain improved ; Denies: nausea, vomiting Genitourinary: Reports: other - no morales; Denies: dysuria, hematuria, frequency Neurologic: Denies: headache Psychiatric: Denies: depression Skin: Denies: rash Hematologic: Denies: bleeding Musculoskeletal: Reports: pain - some back pain Allergies: Coded Allergies: CODEINE (Verified Allergy, Severe, 12/17/18) Face contractions HYDROMORPHONE (Verified Allergy, Severe, Itching, 12/17/18) Itching whole body METOCLOPRAMIDE (Verified Allergy, Severe, 12/17/18) Face contractions MORPHINE (Verified Allergy, Severe, Shortness of Breath, 12/17/18) SULFA (SULFONAMIDE ANTIBIOTICS) (Verified Allergy, Severe, 12/17/18) Face contractions Objective Vital Signs Last 24 Hour Vital Signs Date Time Temp Pulse Resp B/P (MAP) Pulse Ox O2 Delivery O2 Flow Rate FiO2 01/01/19 09:00 Room Air 01/01/19 08:34 143/69 01/01/19 08:34 92 143/69 01/01/19 08:00 98.5 89 18 143/69 (93) 98 01/01/19 00:00 98.4 84 18 149/74 (99) 98 12/31/18 21:00 Room Air 12/31/18 20:00 98.7 88 18 154/76 (102) 97 12/31/18 16:20 92 155/76 12/31/18 16:00 99.1 92 20 155/76 (102) 97 12/31/18 14:29 98.9 Height (Feet): 5 Height (Inches): 5.00 Weight (Pounds): 136 General Appearance: no acute distress HEENT: normocephalic, atraumatic Respiratory/Chest: lungs clear, normal breath sounds, no respiratory distress, no accessory muscle use Cardiovascular: normal rate, regular rhythm, no gallop/murmur, no JVD Abdomen: normal bowel sounds, soft, non tender, no organomegaly, non distended Genitourinary: other - no morales Extremities: no cyanosis Skin: no rash Neurologic/Psychiatric: belt polisher II-XII 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 Good bowel and bag opacification with no evidence of bowel obstruction. Unusual, markedly distended unopacified loop of bowel in the pelvis. Although unopacified, this does not appear to be an abscess as there is a wall and other characteristics more in keeping with bowel. Would consider a large diverticulum or possibly remnant of the previous Kock pouch or part of the small bowel leading to the old pouch as those segments are sometimes quite distended. Status post liver transplant. Status post cholecystectomy. Mild basal atelectasis. Chest x-ray - no pna, report noted CT abdomen/pelvis - 12/30/18 - Impression: Postsurgical changes, as described Unusual tubular structure filled mostly with gas but also some fluid communicating with the small bowel at the site of a right lower quadrant enteroenterostomy. Uncertain as to whether this represents an unusual large diverticulum, a true extraluminal gas collection, or a portion of an old continent ileostomy pouch. This is also previously described Dilated proximal small bowel proximal to the enteroenterostomy with slow forward propulsion of contents. Partial small bowel obstruction not completely excludable although unlikely given evidence of forward propulsion of contrast and filling of the ileostomy on prior 12/26/2018 exam; findings most likely functional in nature. Correlate with clinical findings Small anterior pelvic and deep pelvic fluid pockets, most likely represent retained postoperative fluid collections. Abscess as etiology of any of these not completely excludable; correlation with clinical findings recommended Postsurgical changes of the liver status post transplantation Punctate nonobstructing bilateral intrarenal calculi Bilateral basilar pulmonary parenchymal atelectasis and/or scarring Images previously reviewed in person with Dr. Sotomayor Microbiology Date/Time Source Procedure Growth Status 12/27/18 13:38 Blood Blood Culture - Preliminary NO GROWTH AFTER 72 HOURS Resulted 12/27/18 10:15 Urine,Clean Catch Urine Culture - Final NO GROWTH AFTER 48 HOURS Complete Laboratory Tests Test 01/01/19 05:05 White Blood Count 10.4 K/UL (4.8-10.8) Red Blood Count 3.11 M/UL (4.20-5.40) L Hemoglobin 9.4 G/DL (12.0-16.0) L Hematocrit 28.9 % (37.0-47.0) L Mean Corpuscular Volume 93 FL (80-99) Mean Corpuscular Hemoglobin 30.2 PG (27.0-31.0) Mean Corpuscular Hemoglobin Concent 32.5 G/DL (32.0-36.0) Red Cell Distribution Width 12.9 % (11.6-14.8) Platelet Count 779 K/UL (150-450) H Mean Platelet Volume 5.4 FL (6.5-10.1) L Neutrophils (%) (Auto) 82.3 % (45.0-75.0) H Lymphocytes (%) (Auto) 8.9 % (20.0-45.0) L Monocytes (%) (Auto) 5.4 % (1.0-10.0) Eosinophils (%) (Auto) 2.6 % (0.0-3.0) Basophils (%) (Auto) 0.8 % (0.0-2.0) Sodium Level 138 MMOL/L (136-145) Potassium Level 4.0 MMOL/L (3.5-5.1) Chloride Level 104 MMOL/L (98-107) Carbon Dioxide Level 24 MMOL/L (21-32) Anion Gap 10 mmol/L (5-15) Blood Urea Nitrogen 19 mg/dL (7-18) H Creatinine 1.2 MG/DL (0.55-1.30) Estimat Glomerular Filtration Rate 44.8 mL/min (>60) Glucose Level 159 MG/DL (74-106) H Calcium Level 9.5 MG/DL (8.5-10.1) Total Bilirubin 0.2 MG/DL (0.2-1.0) Aspartate Amino Transf (AST/SGOT) 12 U/L (15-37) L Alanine Aminotransferase (ALT/SGPT) 17 U/L (12-78) Alkaline Phosphatase 293 U/L (46-116) H Total Protein 6.7 G/DL (6.4-8.2) Albumin 1.9 G/DL (3.4-5.0) L Globulin 4.8 g/dL Albumin/Globulin Ratio 0.4 (1.0-2.7) L Current Medications Medications (Trade) Dose Ordered Sig/Kajal Route PRN Reason Start Time Stop Time Status Last Admin Dose Admin Acetaminophen (Tylenol) 650 mg Q4H PRN ORAL Mild Pain/Temp > 100.2 12/26/18 21:00 01/25/19 20:59 12/26/18 21:11 Acetaminophen (Tylenol) 650 mg Q6H PRN ORAL headache 12/17/18 14:45 01/16/19 14:44 12/17/18 14:47 Al Hydroxide/Mg Hydroxide (Mylanta) 30 ml Q6H PRN ORAL dyspepsia 12/28/18 09:30 01/27/19 09:29 01/01/19 08:32 Amlodipine Besylate (Norvasc) 2.5 mg QPM ORAL 12/30/18 16:30 01/29/19 16:29 12/31/18 16:20 Chlorhexidine Gluconate (Yulia-Hex 2%) 1 applic DAILY@1999 TOPIC 12/17/18 20:00 01/16/19 19:59 12/31/18 20:25 Clonidine HCl (Catapres Tab) 0.1 mg Q6H PRN SL SBP>150 mmHg 12/22/18 22:00 01/21/19 21:59 12/26/18 16:09 Dextrose 1,000 ml @ 0 mls/hr Q24H PRN IV PN interrupted or unavailable 12/20/18 20:00 01/19/19 19:59 Dextrose (Dextrose 50%) 25 ml Q30M PRN IV Hypoglycemia 12/22/18 12:45 01/21/19 12:44 Dextrose (Dextrose 50%) 50 ml Q30M PRN IV Hypoglycemia 12/22/18 12:45 01/21/19 12:44 Dextrose/ Electrolytes 1,000 ml @ 25 mls/hr Q24H IV 12/24/18 08:00 01/21/19 07:59 12/31/18 05:29 Diphenhydramine HCl (Benadryl) 50 mg Q4H PRN ORAL Itching 12/27/18 20:00 01/26/19 19:59 12/27/18 20:37 Fat Emulsion Intravenous 216 ml/Amino Acids/ Electrolytes/ Dextrose 1,776 ml @ 74 mls/hr Q24H IV 12/30/18 20:00 01/29/19 19:59 12/31/18 20:05 Hydromorphone HCl (Dilaudid) 0.5 mg Q4H PRN SUBQ Severe Breakthru Pain (>7) 12/29/18 12:30 01/05/19 12:29 12/31/18 23:17 Insulin Aspart (NovoLOG) Q6HR SUBQ 12/22/18 18:00 01/21/19 17:59 01/01/19 06:31 Iron Sucrose 100 mg/Sodium Chloride 60 ml @ 240 mls/hr BEDTIME IVPB 12/29/18 21:00 01/02/19 21:14 12/31/18 20:25 Levothyroxine Sodium (Synthroid) 125 mcg DAILY@0630 ORAL 12/18/18 06:30 01/17/19 06:29 01/01/19 06:27 Lisinopril (Prinivil) 40 mg DAILY ORAL 12/31/18 09:00 01/30/19 08:59 01/01/19 08:34 Metoprolol Succinate (Toprol XL) 25 mg DAILY ORAL 12/24/18 09:00 01/23/19 08:59 01/01/19 08:34 Mycophenolate Mofetil (Cellcept) 750 mg Q12HR ORAL 12/25/18 09:00 01/24/19 08:59 01/01/19 08:32 Ondansetron HCl (Zofran) 4 mg Q6H PRN IVP Nausea & Vomiting 12/21/18 07:15 01/20/19 07:14 01/01/19 06:27 Oxycodone/ Acetaminophen (Percocet 10/325) 1 tab Q4H PRN ORAL pain 4-10 12/28/18 12:30 01/04/19 12:29 01/01/19 08:31 Pantoprazole (Protonix) 40 mg DAILY IVP 12/26/18 09:00 01/25/19 08:59 01/01/19 08:32 Piperacillin Sod/ Tazobactam Sod 3.375 gm/Dextrose 100 ml @ 25 mls/hr EVERY 8 HOURS IVPB 12/30/18 14:00 01/04/19 13:59 01/01/19 06:24 Prochlorperazine (Compazine) 10 mg Q6H PRN IVP Nausea & Vomiting 12/20/18 09:15 01/19/19 09:14 01/01/19 08:40 Tacrolimus (Prograf) 1 mg DAILY ORAL 12/19/18 09:00 01/18/19 08:59 01/01/19 08:32 Tacrolimus (Prograf) 2 mg BEDTIME ORAL 12/17/18 21:00 01/16/19 20:59 12/31/18 20:19 Trazodone HCl (Desyrel) 25 mg HSPRN PRN ORAL INSOMNIA 12/30/18 16:15 01/29/19 16:14 01/01/19 00:03 Philly Shelby MD Jan 01, 2019 13:17
--- NOTE | 2019-01-01 13:45 | NUR ---
CASE MANAGEMENT:REVIEW 01/01/19 SI: POD #14 S/P RESECTION,ENTEROENTEROSTOMY AND CREATION OF SUKHI ILEOSTOMY INTERMITTENT NAUSEA 98.5 89 18 143/69 98% ON RA H/H-9.4/28.9 IS: TPN/IL @ 74/HR IV ZOSYN Q8HRS IV VENOFER QHS IV PROTONIX QD IVF@25/HR LISINOPRIL PO QD NORVASC PO QPM TOPROL XL PO QD CELLCEPT PO Q12 DILAUDID SQ Q4HRS PRN : MED/SURG STATUS 3 EAST PLAN: POSSIBLE INTRA ABDOMINAL COLLECTION ~ WILL NEED TO BE EXPLORED LOW RESIDUE DIET
--- NOTE | 2019-01-01 14:30 | NUR ---
*-* INSURANCE *-* ALL AVAILABLE CLINICALS HAVE BEEN FAXED TO: YAS[employer] NORTONM: ANKIT [place] P:[phone] F: [phone]
--- NOTE | 2019-01-01 15:46 | General Progress Note ---
Progress Note Progress Note AVSS Small emesis yesterday morning but since then able to eat 50 % of low residue diet. Still with abdominal pain using Percocet 5/325 Ileostomy appliance still with episodes leaking of seal with skin irritation ABdomen soft but still mildly distended Urine 2825 Ileostomy 800 WBC down 10,400 Platelets 779,000 (was 776,000) BUN 19 Cr 1.2 Alk phos down 293 Albumin 1.9 Imp. Severe hypoalbuminemia Abdominal pain, partially retracted ileostomy stoma Abnormal CT without perforation/abscess but dilated enteroenterostomy segment without obstruction Plan: continue TPN Zosyn day 5 f/u labs Lars Sotomayor MD Jan 01, 2019 15:46
[2019-01-01 16:00] VITALS: BP 131/76
--- NOTE | 2019-01-01 18:14 | Cardiology Progress Note ---
Assessment/Plan Status Narrative 1. Malfunctioning Kock pouch continent ileostomy. 2. History of ulcerative colitis. 3. History of primary sclerosing cholangitis. 4. Status post multiple abdominal operations. 4.1. Appendectomy in 1964. 4.2. Proctocolectomy and Kock pouch in 1978. 4.3. Total abdominal hysterectomy and bilateral salpingo-oophorectomy 1983 4.4. Cholecystectomy in 1985. 4.5. Orthotopic liver transplantation in 1999. 4.6. Revision of Kock pouch and repair of fistula in 2010. HTN- New onset-improved with meds Tachycardia- improved with IV Fluids and Beta Blockers. BP slightly elevated - probably due to pain/discomfort- now on Norvasc / Lisinopril and Metoprolol Assessment/Plan Clonidine 0.1 mg Q6h PRN Metoprolol 25 mg QD Zestril 40 mg QD. Norvasc 2.5 mg QD If BP remains high, may increase Meds pain management.\ Encouraged increased ambulation. Discussed with RN. Subjective Cardiovascular: Reports: no symptoms Respiratory: Reports: no symptoms Gastrointestinal/Abdominal: Reports: abdominal pain Genitourinary: Reports: no symptoms Subjective No fever on ABx. Tolerating solids Abdominal pain improved Ambulating Objective Last 24 Hour Vital Signs Date Time Temp Pulse Resp B/P (MAP) Pulse Ox O2 Delivery O2 Flow Rate FiO2 01/01/19 16:39 89 131/76 01/01/19 16:00 99.3 89 18 131/76 (94) 96 01/01/19 12:00 98.8 79 18 116/65 (82) 96 01/01/19 09:00 Room Air 01/01/19 08:34 143/69 01/01/19 08:34 92 143/69 01/01/19 08:00 98.5 89 18 143/69 (93) 98 01/01/19 00:00 98.4 84 18 149/74 (99) 98 12/31/18 21:00 Room Air 12/31/18 20:00 98.7 88 18 154/76 (102) 97 Cardiovascular: normal rate, regular rhythm, no gallop/murmur Respiratory/Chest: lungs clear Abdomen: soft, no organomegaly, absent bowel sounds, tender Extremities: non-tender, normal inspection, no calf tenderness, no swelling Intake and Output 12/31/18 01/01/19 19:00 07:00 Intake Total 1988 ml 1906 ml Output Total 1350 ml 2075 ml Balance 638 ml -169 ml Intake Oral 800 ml 830 ml IV Total 1188 ml 1076 ml Output Urine Total 850 ml 1675 ml Emesis 100 ml Other 400 ml 400 ml # Voids 5 7 Laboratory Tests Test 01/01/19 05:05 White Blood Count 10.4 K/UL (4.8-10.8) Red Blood Count 3.11 M/UL (4.20-5.40) L Hemoglobin 9.4 G/DL (12.0-16.0) L Hematocrit 28.9 % (37.0-47.0) L Mean Corpuscular Volume 93 FL (80-99) Mean Corpuscular Hemoglobin 30.2 PG (27.0-31.0) Mean Corpuscular Hemoglobin Concent 32.5 G/DL (32.0-36.0) Red Cell Distribution Width 12.9 % (11.6-14.8) Platelet Count 779 K/UL (150-450) H Mean Platelet Volume 5.4 FL (6.5-10.1) L Neutrophils (%) (Auto) 82.3 % (45.0-75.0) H Lymphocytes (%) (Auto) 8.9 % (20.0-45.0) L Monocytes (%) (Auto) 5.4 % (1.0-10.0) Eosinophils (%) (Auto) 2.6 % (0.0-3.0) Basophils (%) (Auto) 0.8 % (0.0-2.0) Sodium Level 138 MMOL/L (136-145) Potassium Level 4.0 MMOL/L (3.5-5.1) Chloride Level 104 MMOL/L (98-107) Carbon Dioxide Level 24 MMOL/L (21-32) Anion Gap 10 mmol/L (5-15) Blood Urea Nitrogen 19 mg/dL (7-18) H Creatinine 1.2 MG/DL (0.55-1.30) Estimat Glomerular Filtration Rate 44.8 mL/min (>60) Glucose Level 159 MG/DL (74-106) H Calcium Level 9.5 MG/DL (8.5-10.1) Total Bilirubin 0.2 MG/DL (0.2-1.0) Aspartate Amino Transf (AST/SGOT) 12 U/L (15-37) L Alanine Aminotransferase (ALT/SGPT) 17 U/L (12-78) Alkaline Phosphatase 293 U/L (46-116) H Total Protein 6.7 G/DL (6.4-8.2) Albumin 1.9 G/DL (3.4-5.0) L Globulin 4.8 g/dL Albumin/Globulin Ratio 0.4 (1.0-2.7) L Micha Ziegler MD Jan 01, 2019 18:14
[2019-01-01] MEDS: D5 1/2NS w/KCl 40meq 1000ml 1,000 ML IV SCH (18:21)
--- NOTE | 2019-01-01 19:29 | NUR ---
NURSE NOTES: Pt is observed ambulating around the hallway. No acute distress noted. Pt has no complaints at this time. No SOB. TPN running at 74ml/hr. Ileostomy in place. Patient is on strict I&O. Pt will be monitored.
--- NOTE | 2019-01-01 19:32 | NUR ---
HAND-OFF: Report given to Chip RN. Patient is stable.
[2019-01-01 20:00] VITALS: BP 163/77
[2019-01-01] MEDS: Fat Emulsion Iv 20% 216 ML in Tpn 1,560 ML IV SCH (20:50)
[2019-01-01] MEDS: Iron Sucrose 100 MG in NS 55 ML IVPB SCH (20:52)
[2019-01-01] MEDS: Dyna-Hex 2% Top Sol 2oz TOPIC SCH (20:52)
[2019-01-01] MEDS: Ketorolac 30mg Inj IV PRN (20:54)
--- NOTE | 2019-01-01 21:00 | NUR ---
NURSE NOTES: Ileostomy bag replaced, stoma care provided. Ileostomy draining lid stool. Pain medication given as ordered PRN. Compazine 10mg IV given per nausea and vomiting. PICC line dressing changed using sterile techniques. Clonidine 0.1mg given for BP 163/77 as ordered PRN. Pt is calm in bed Now.
[2019-01-02] VITALS: BP 138/72
[2019-01-02] MEDS: NovoLOG Insulin Flexpen SUBQ SCH ×5 (00:05→23:47)
[2019-01-02] MEDS: TraZODone HCl 25 mg tablet ORAL PRN (03:08)
[2019-01-02 04:00] VITALS: BP 167/92
[2019-01-02] MEDS: Levothyroxine 125mcg tab ORAL SCH (05:29)
[2019-01-02] MEDS: oxyCODONE HCL/Acetaminophen 5/325mg ORAL PRN ×2 (05:30→14:10)
--- NOTE | 2019-01-02 06:00 | NUR ---
NURSE NOTES: Pt's ileostomy started to leak, the bag secured in place with Tegaderm. Pt requesting wound care nurse Maryse to come and replace the bag. Maryse was called.
[2019-01-02 06:44] LABS: ANION GAP 11 mmol/L (5-15); BLOOD UREA NITROGEN 22 mg/dL (7-18); CALCIUM 9.6 MG/DL (8.5-10.1); CARBON DIOXIDE 22 MMOL/L (21-32); CHLORIDE 105 MMOL/L (98-107); CREATININE 1.2 MG/DL (0.55-1.30); PHOSPHORUS 2.3 MG/DL (2.5-4.9); SODIUM 138 MMOL/L (136-145)
[2019-01-02 07:08] LABS: BASOPHILS % (AUTO) 0.7 % (0.0-2.0); EOSINOPHILS % (AUTO) 2.9 % (0.0-3.0); HEMATOCRIT 29.1 % (37.0-47.0); HEMOGLOBIN 9.5 G/DL (12.0-16.0); LYMPHOCYTES % (AUTO) 6.7 % (20.0-45.0); MEAN CORPUSCULAR VOLUME 92 FL (80-99); MONOCYTES % (AUTO) 6.2 % (1.0-10.0); NEUTROPHILS % (AUTO) 83.5 % (45.0-75.0); PLATELET COUNT 774 K/UL (150-450); RED BLOOD COUNT 3.14 M/UL (4.20-5.40); RED CELL DISTRIBUTION WIDTH 13.1 % (11.6-14.8); WHITE BLOOD COUNT 10.4 K/UL (4.8-10.8)
--- NOTE | 2019-01-02 07:30 | NUR ---
HAND-OFF: Report given to PATRICK Chappell.Informed PATRICK Chappell to follow up with Maryse (wound care nurse).
--- NOTE | 2019-01-02 07:58 | NUR ---
NURSE NOTES: Received report from Chip RN. Patient is awake and oriented, no acute distress noted, reporting no pain or nausea at this time. BCIR breakfast at bedside. IVF and TPN running per order through MARILY PICC, dressing intact and clean. Assessed mary ileostomy, some leaking noted around bag seal, reinforced, WOCN Fabien contacted and will follow up. Patient updated on plan of care for the day. Side rails upx2, bed low and locked, call light in reach. Will continue to monitor.
[2019-01-02 08:00] VITALS: BP 142/71
[2019-01-02] MEDS: Lisinopril 20mg tab ORAL SCH (08:35)
[2019-01-02] MEDS: Metoprolol Succinate XL 25mg tab ORAL SCH (08:35)
[2019-01-02] MEDS: Pantoprazole Inj IVP SCH (08:35)
[2019-01-02] MEDS: Mycophenolate 250mg cap ORAL SCH ×2 (08:36→20:47)
--- NOTE | 2019-01-02 09:25 | General Progress Note ---
Progress Note Progress Note AVSS Unable to maintain ileostomy appliance in place without leaking - changed 3 times in past 24 hours. working with enterostomal therapist Abdomen remains protruberant. Patient tolerating low residue diet with ileostomy output 835cc Still on Zosyn and TPN. WBC 10,400 Hgb 9.5 Platelets down 774,000 BU"N 22 Cr 1.2 Phos 2.3 Mg 1.7 Imp. Retracted ileostomy stoma Resolving intra-abdominal infection on Zosyn Plan: Replace Mg and P f/u labs in AM schedule surgery, Type and Cross match 2 units PRBC on hold for surgery. Discussed with patient that bladimir-stomal approach may be sufficient, but if not then repeat laparotomy will be required. Lars Sotomayor MD Jan 02, 2019 09:25
--- NOTE | 2019-01-02 09:32 | General Progress Note ---
Assessment/Plan Status: unchanged Assessment/Plan: (1) Malfunctioning Kock Pouch (2) History of liver transplant Assessment/Plan 1. Malfunctioning Kock pouch continent ileostomy with increasing difficulty with intubation and increasing incontinence of stool and gas. 2. History of ulcerative colitis. 3. History of primary sclerosing cholangitis. 4. STATUS POST MULTIPLE ABDOMINAL OPERATIONS: 4.1. Proctocolectomy and Kock pouch continent ileostomy in 1978. 4.2. Total abdominal hysterectomy and bilateral salpingo-oophorectomy in 1983. 4.3. Appendectomy age 15. 4.4. Cholecystectomy in 1985. 4.5. Liver transplantation in 1999. 4.6. Laparotomy with revision of Kock pouch and repair of pouch cutaneous fistula in 2010. Status post exploratory laparotomy with lysis of the adhesions and continent pouch repair continue zosyn zofran prn, compazine prn fu LFTs>>> stable now on TPN cellcept 750 BID prograft 3 gm per day monitor for lytes protonix on reg diet>>> minimal po intake will fu labs repeat CT reviewed Retracted ileostomy stoma per surgery>>> pending surgical repair Subjective ROS Limited/Unobtainable: Yes Allergies: Coded Allergies: CODEINE (Verified Allergy, Severe, 12/17/18) Face contractions HYDROMORPHONE (Verified Allergy, Severe, Itching, 12/17/18) Itching whole body METOCLOPRAMIDE (Verified Allergy, Severe, 12/17/18) Face contractions MORPHINE (Verified Allergy, Severe, Shortness of Breath, 12/17/18) SULFA (SULFONAMIDE ANTIBIOTICS) (Verified Allergy, Severe, 12/17/18) Face contractions Subjective abd pain Objective Last 24 Hour Vital Signs Date Time Temp Pulse Resp B/P (MAP) Pulse Ox O2 Delivery O2 Flow Rate FiO2 01/02/19 08:35 142/71 01/02/19 08:35 87 142/71 01/02/19 08:00 98.9 87 18 142/71 (94) 95 01/02/19 05:33 164/94 01/02/19 04:00 99.3 92 18 167/92 (117) 97 01/02/19 00:00 98.7 84 18 138/72 (94) 97 01/01/19 21:16 163/89 01/01/19 21:00 Room Air 01/01/19 20:00 95 Room Air 21 01/01/19 20:00 99.2 89 20 163/77 (105) 98 01/01/19 16:39 89 131/76 01/01/19 16:00 99.3 89 18 131/76 (94) 96 01/01/19 12:00 98.8 79 18 116/65 (82) 96 Intake and Output 01/01/19 01/02/19 18:59 06:59 Intake Total 1809 ml 1808.0 ml Output Total 1525 ml 1910 ml Balance 284 ml -102.0 ml Intake Oral 720 ml 400 ml IV Total 1089 ml 1408.0 ml Output Urine Total 1100 ml 1350 ml Emesis 150 ml Other 425 ml 410 ml # Voids 4 Laboratory Tests 01/02/19 05:00: White Blood Count 10.4, Red Blood Count 3.14L, Hemoglobin 9.5L, Hematocrit 29.1L , Mean Corpuscular Volume 92, Mean Corpuscular Hemoglobin 30.1, Mean Corpuscular Hemoglobin Concent 32.5, Red Cell Distribution Width 13.1, Platelet Count 774H, Mean Platelet Volume 5.3L, Neutrophils (%) (Auto) 83.5H, Lymphocytes (%) (Auto) 6.7L, Monocytes (%) (Auto) 6.2, Eosinophils (%) (Auto) 2.9, Basophils (%) (Auto) 0.7, Sodium Level 138, Potassium Level 4.0, Chloride Level 105, Carbon Dioxide Level 22, Anion Gap 11, Blood Urea Nitrogen 22H, Creatinine 1.2, Estimat Glomerular Filtration Rate 44.8, Glucose Level 167H, Calcium Level 9.6, Phosphorus Level 2.3L, Magnesium Level 1.7L, Tacrolimus ( Prograf) Level [Pending] Height (Feet): 5 Height (Inches): 5.00 Weight (Pounds): 136 General Appearance: alert EENT: normal ENT inspection Neck: supple Cardiovascular: normal rate Respiratory/Chest: decreased breath sounds Abdomen: soft, hypoactive bowel sounds, distended, tender Extremities: non-tender Max Dozier MD Jan 02, 2019 09:31
[2019-01-02] MEDS: D5 1/2NS w/KCl 40meq 1000ml 1,000 ML IV SCH (09:51)
[2019-01-02] MEDS ORDERED: Potassium Phosphate 20 MM in NS 275 ML IV ONE (10:15)
--- NOTE | 2019-01-02 10:15 | NUR ---
NURSE NOTES: Received order from Dr. Ziegler to change patient's Norvasc to 2.5mg PO bid to start this evening at 1800. Order entered, will carry out.
--- NOTE | 2019-01-02 10:19 | Cardiology Progress Note ---
Assessment/Plan Status Narrative 1. Malfunctioning Kock pouch continent ileostomy. 2. History of ulcerative colitis. 3. History of primary sclerosing cholangitis. 4. Status post multiple abdominal operations. 4.1. Appendectomy in 1964. 4.2. Proctocolectomy and Kock pouch in 1978. 4.3. Total abdominal hysterectomy and bilateral salpingo-oophorectomy 1983 4.4. Cholecystectomy in 1985. 4.5. Orthotopic liver transplantation in 1999. 4.6. Revision of Kock pouch and repair of fistula in 2010. HTN- New onset-improved with meds Tachycardia- improved with IV Fluids and Beta Blockers. BP slightly elevated - probably due to pain/discomfort- now on Norvasc / Lisinopril and Metoprolol Assessment/Plan Clonidine 0.1 mg Q6h PRN Metoprolol 25 mg QD Zestril 40 mg QD. Increase Norvasc 2.5 mg BID Monitor BP Planned for re-op on Saturday pain management eval for post op care Encouraged increased ambulation. Discussed with Dr. Sotomayor. Subjective Cardiovascular: Reports: no symptoms Respiratory: Reports: no symptoms Gastrointestinal/Abdominal: Reports: abdominal pain Genitourinary: Reports: no symptoms Subjective No fever on ABx. Tolerating solids Abdominal pain improved Ambulating Objective Last 24 Hour Vital Signs Date Time Temp Pulse Resp B/P (MAP) Pulse Ox O2 Delivery O2 Flow Rate FiO2 01/02/19 09:00 Room Air 01/02/19 08:35 142/71 01/02/19 08:35 87 142/71 01/02/19 08:00 98.9 87 18 142/71 (94) 95 01/02/19 05:33 164/94 01/02/19 04:00 99.3 92 18 167/92 (117) 97 01/02/19 00:00 98.7 84 18 138/72 (94) 97 01/01/19 21:16 163/89 01/01/19 21:00 Room Air 01/01/19 20:00 95 Room Air 21 01/01/19 20:00 99.2 89 20 163/77 (105) 98 01/01/19 16:39 89 131/76 01/01/19 16:00 99.3 89 18 131/76 (94) 96 01/01/19 12:00 98.8 79 18 116/65 (82) 96 Cardiovascular: normal rate, regular rhythm, no gallop/murmur Respiratory/Chest: lungs clear, normal breath sounds Abdomen: normal bowel sounds, soft, distended, tender Extremities: non-tender, normal inspection, no calf tenderness, no swelling Intake and Output 01/01/19 01/02/19 18:59 06:59 Intake Total 1809 ml 1808.0 ml Output Total 1525 ml 1910 ml Balance 284 ml -102.0 ml Intake Oral 720 ml 400 ml IV Total 1089 ml 1408.0 ml Output Urine Total 1100 ml 1350 ml Emesis 150 ml Other 425 ml 410 ml # Voids 4 Laboratory Tests Test 01/02/19 05:00 White Blood Count 10.4 K/UL (4.8-10.8) Red Blood Count 3.14 M/UL (4.20-5.40) L Hemoglobin 9.5 G/DL (12.0-16.0) L Hematocrit 29.1 % (37.0-47.0) L Mean Corpuscular Volume 92 FL (80-99) Mean Corpuscular Hemoglobin 30.1 PG (27.0-31.0) Mean Corpuscular Hemoglobin Concent 32.5 G/DL (32.0-36.0) Red Cell Distribution Width 13.1 % (11.6-14.8) Platelet Count 774 K/UL (150-450) H Mean Platelet Volume 5.3 FL (6.5-10.1) L Neutrophils (%) (Auto) 83.5 % (45.0-75.0) H Lymphocytes (%) (Auto) 6.7 % (20.0-45.0) L Monocytes (%) (Auto) 6.2 % (1.0-10.0) Eosinophils (%) (Auto) 2.9 % (0.0-3.0) Basophils (%) (Auto) 0.7 % (0.0-2.0) Sodium Level 138 MMOL/L (136-145) Potassium Level 4.0 MMOL/L (3.5-5.1) Chloride Level 105 MMOL/L (98-107) Carbon Dioxide Level 22 MMOL/L (21-32) Anion Gap 11 mmol/L (5-15) Blood Urea Nitrogen 22 mg/dL (7-18) H Creatinine 1.2 MG/DL (0.55-1.30) Estimat Glomerular Filtration Rate 44.8 mL/min (>60) Glucose Level 167 MG/DL (74-106) H Calcium Level 9.6 MG/DL (8.5-10.1) Phosphorus Level 2.3 MG/DL (2.5-4.9) L Magnesium Level 1.7 MG/DL (1.8-2.4) L Tacrolimus (Prograf) Level Pending Micha Ziegler MD Jan 02, 2019 10:19
[2019-01-02 12:00] VITALS: BP 137/71
--- NOTE | 2019-01-02 13:17 | NUR ---
CASE MANAGEMENT:REVIEW 01/02/19 SI: POD #15 S/P RESECTION,ENTEROENTEROSTOMY AND CREATION OF SUKHI ILEOSTOMY INTERMITTENT NAUSEA 98.9 78 18 137/71 97% ON RA H/H-9.5/29.1 PHOS-2.3 MAG-1.7 IS: IV K-PHOS X1 TPN/IL @ 74/HR IV ZOSYN Q8HRS IV VENOFER QHS IV PROTONIX QD IVF@25/HR LISINOPRIL PO QD NORVASC PO QPM TOPROL XL PO QD CELLCEPT PO Q12 DILAUDID SQ Q4HRS PRN : MED/SURG STATUS 3 EAST PLAN: PLANNED TO RE-OPERATE ON SATURDAY
--- NOTE | 2019-01-02 13:41 | NUR ---
NURSE NOTES: Patient had one episode of emesis, small amount of emesis noted. Zofran given and patient now reports she is feeling much better, ambulating in hallway. Will continue to monitor.
--- NOTE | 2019-01-02 15:00 | NUR ---
NURSE NOTES: Patient reported ostomy appliance leaking, called Fabien ABREU. Fabien changed ileostomy appliance at bedside, no additional leaking noted. Will continue to monitor.
[2019-01-02 16:00] VITALS: BP 138/70
[2019-01-02] MEDS ORDERED: Ascorbic Acid 500mg tab ORAL SCH (17:15)
--- NOTE | 2019-01-02 17:23 | NUR ---
NURSE NOTES: Called Dr. Sotomayor and reported that patient has only had just over 100mL of ileostomy output during shift so far despite adequate PO intact and also reported patient's episode of emesis today. Received order for one time dose of Vitamin C, administered to patient. Patient educated to not eat if she is having abdominal pain.
--- NOTE | 2019-01-02 18:44 | NUR ---
NURSE NOTES: Total ileo output for shift: 155mL Total urine output for shift: 1000mL Pain managed, no further episodes of nausea/emesis.
--- NOTE | 2019-01-02 19:39 | NUR ---
HAND-OFF: Report given to Asad NGUYEN.
[2019-01-02 20:00] VITALS: BP 162/73
[2019-01-02] MEDS: Dyna-Hex 2% Top Sol 2oz TOPIC SCH (20:46)
[2019-01-02] MEDS: Iron Sucrose 100 MG in NS 55 ML IVPB SCH (20:47)
[2019-01-02] MEDS: Ketorolac 30mg Inj IV PRN (20:48)
[2019-01-02] MEDS: Fat Emulsion Iv 20% 216 ML in Tpn 1,560 ML IV SCH (20:49)
[2019-01-03] VITALS: BP 138/64
--- NOTE | 2019-01-03 01:15 | NUR ---
NURSE NOTES: Recieved report from PATRICK Chappell.Patient is resting in bed. Abdominal surgical site are voered in stable and open to air. SCD dvss on on bilateral and on now. TPN is running at 74mLhr. L ileostomy appliace is draining dark brown stool. IPatient is on room air with SOB.
[2019-01-03] MEDS: Ketorolac 30mg Inj IV PRN ×3 (02:31→23:16)
[2019-01-03 04:00] VITALS: BP 147/73
[2019-01-03] MEDS: D5 1/2NS w/KCl 40meq 1000ml 1,000 ML IV SCH ×2 (04:16→21:59)
[2019-01-03] MEDS: Levothyroxine 125mcg tab ORAL SCH (05:20)
[2019-01-03] MEDS: NovoLOG Insulin Flexpen SUBQ SCH ×4 (05:22→23:25)
[2019-01-03 06:03] LABS: BASOPHILS % (AUTO) 0.6 % (0.0-2.0); EOSINOPHILS % (AUTO) 3.1 % (0.0-3.0); HEMATOCRIT 26.2 % (37.0-47.0); HEMOGLOBIN 8.5 G/DL (12.0-16.0); LYMPHOCYTES % (AUTO) 8.4 % (20.0-45.0); MEAN CORPUSCULAR VOLUME 93 FL (80-99); MONOCYTES % (AUTO) 5.6 % (1.0-10.0); NEUTROPHILS % (AUTO) 82.4 % (45.0-75.0); PLATELET COUNT 711 K/UL (150-450); RED BLOOD COUNT 2.82 M/UL (4.20-5.40); RED CELL DISTRIBUTION WIDTH 13.8 % (11.6-14.8); WHITE BLOOD COUNT 11.1 K/UL (4.8-10.8)
[2019-01-03 06:15] LABS: INR 0.9 (0.9-1.1)
[2019-01-03 06:22] LABS: PHOSPHORUS 3.2 MG/DL (2.5-4.9)
[2019-01-03 06:42] LABS: ALANINE AMINOTRANSFERASE 17 U/L (12-78); ALBUMIN 1.9 G/DL (3.4-5.0); ALBUMIN/GLOBULIN RATIO 0.4 (1.0-2.7); ALKALINE PHOSPHATASE 286 U/L (46-116); ANION GAP 10 mmol/L (5-15); ASPARTATE AMINO TRANSFERASE 15 U/L (15-37); BILIRUBIN,TOTAL 0.2 MG/DL (0.2-1.0); BLOOD UREA NITROGEN 20 mg/dL (7-18); CALCIUM 9.6 MG/DL (8.5-10.1); CARBON DIOXIDE 22 MMOL/L (21-32); CHLORIDE 104 MMOL/L (98-107); CREATININE 1.3 MG/DL (0.55-1.30); SODIUM 136 MMOL/L (136-145)
--- NOTE | 2019-01-03 07:45 | NUR ---
HAND-OFF: Report given to Misti Rodgers RN. Patient in stable condition.
[2019-01-03 08:00] VITALS: BP 166/82
--- NOTE | 2019-01-03 08:00 | NUR ---
NURSE NOTES: Received report from Asad NGUYEN. Patient is awake and oriented, reporting abdominal pain rated 6-8/10, patent also reports she is nauseous, requesting a percocet for pain. Will medicate with Zofran and percocet per order. Ileostomy external appliance in place with no leaking noted. IVF and TPN running per order through [facility] PICC, dressing dry and intact, no swelling or pain noted. Updated on plan of care for the day. Will continue to monitor.
[2019-01-03] MEDS: oxyCODONE HCL/Acetaminophen 5/325mg ORAL PRN ×3 (08:09→17:40)
--- NOTE | 2019-01-03 08:13 | General Progress Note ---
Assessment/Plan Status: unchanged Assessment/Plan: (1) Malfunctioning Kock Pouch (2) History of liver transplant Assessment/Plan 1. Malfunctioning Kock pouch continent ileostomy with increasing difficulty with intubation and increasing incontinence of stool and gas. 2. History of ulcerative colitis. 3. History of primary sclerosing cholangitis. 4. STATUS POST MULTIPLE ABDOMINAL OPERATIONS: 4.1. Proctocolectomy and Kock pouch continent ileostomy in 1978. 4.2. Total abdominal hysterectomy and bilateral salpingo-oophorectomy in 1983. 4.3. Appendectomy age 15. 4.4. Cholecystectomy in 1985. 4.5. Liver transplantation in 1999. 4.6. Laparotomy with revision of Kock pouch and repair of pouch cutaneous fistula in 2010. Status post exploratory laparotomy with lysis of the adhesions and continent pouch repair continue zosyn zofran prn, compazine prn fu LFTs>>> stable now on TPN cellcept 750 BID prograft 3 gm per day monitor for lytes protonix add zantac on reg diet>>> minimal po intake will fu labs repeat CT reviewed Retracted ileostomy stoma per surgery>>> pending surgical repair Subjective ROS Limited/Unobtainable: Yes Allergies: Coded Allergies: CODEINE (Verified Allergy, Severe, 12/17/18) Face contractions HYDROMORPHONE (Verified Allergy, Severe, Itching, 12/17/18) Itching whole body METOCLOPRAMIDE (Verified Allergy, Severe, 12/17/18) Face contractions MORPHINE (Verified Allergy, Severe, Shortness of Breath, 12/17/18) SULFA (SULFONAMIDE ANTIBIOTICS) (Verified Allergy, Severe, 12/17/18) Face contractions Subjective abd pain Objective Last 24 Hour Vital Signs Date Time Temp Pulse Resp B/P (MAP) Pulse Ox O2 Delivery O2 Flow Rate FiO2 01/03/19 04:00 98.8 80 16 147/73 (97) 98 01/03/19 00:00 98.6 78 18 138/64 (88) 95 01/02/19 21:05 162/73 01/02/19 21:00 Room Air 01/02/19 20:00 99.5 81 16 162/73 (102) 95 01/02/19 19:54 97 Room Air 21 01/02/19 18:04 84 138/70 9/13/19 16:00 99.0 84 18 138/70 (92) 97 01/02/19 12:00 98.9 78 18 137/71 (93) 97 01/02/19 09:00 Room Air 01/02/19 08:35 142/71 01/02/19 08:35 87 142/71 01/02/19 08:15 96 Room Air 21 Intake and Output 01/02/19 01/03/19 19:00 07:00 Intake Total 2720.664 ml 805 ml Output Total 1155 ml 1625 ml Balance 1565.664 ml -820 ml Intake Oral 950 ml 480 ml IV Total 1770.664 ml 325 ml Output Urine Total 1000 ml 1200 ml Emesis 100 ml Other 155 ml 325 ml # Voids 4 Laboratory Tests 01/03/19 05:05: White Blood Count 11.1H, Red Blood Count 2.82L, Hemoglobin 8.5L, Hematocrit 26.2L, Mean Corpuscular Volume 93, Mean Corpuscular Hemoglobin 30.1, Mean Corpuscular Hemoglobin Concent 32.5, Red Cell Distribution Width 13.8, Platelet Count 711H, Mean Platelet Volume 5.4L, Neutrophils (%) (Auto) 82.4H, Lymphocytes (%) (Auto) 8.4L, Monocytes (%) (Auto) 5.6, Eosinophils (%) (Auto) 3.1H, Basophils (%) (Auto) 0.6, Prothrombin Time 10.0, Prothromb Time International Ratio 0.9, Sodium Level 136, Potassium Level 4.0, Chloride Level 104, Carbon Dioxide Level 22, Anion Gap 10, Blood Urea Nitrogen 20H, Creatinine 1.3, Estimat Glomerular Filtration Rate 40.9, Glucose Level 167H, Calcium Level 9.6, Phosphorus Level 3.2, Magnesium Level 2.2, Total Bilirubin 0.2, Aspartate Amino Transf (AST/SGOT) 15, Alanine Aminotransferase (ALT/SGPT) 17, Alkaline Phosphatase 286H, Total Protein 6.5, Albumin 1.9L, Globulin 4.6, Albumin/ Globulin Ratio 0.4L Height (Feet): 5 Height (Inches): 5.00 Weight (Pounds): 136 EENT: normal ENT inspection Neck: supple Cardiovascular: normal rate Respiratory/Chest: decreased breath sounds Abdomen: soft, hypoactive bowel sounds, tender Vosoghi,Max MD Jan 03, 2019 08:13
[2019-01-03] MEDS: Pantoprazole Inj IVP SCH (09:09)
[2019-01-03] MEDS: Metoprolol Succinate XL 25mg tab ORAL SCH (09:09)
[2019-01-03] MEDS: Lisinopril 20mg tab ORAL SCH (09:09)
--- NOTE | 2019-01-03 09:30 | NUR ---
NURSE NOTES: Patient had episode of emesis following percocet and zofran administration, small amount of brown emesis noted. Patient did not have any breakfast, educated patient not to eat if she is having increased abdominal pain and nausea. Administered compazine and toradol per order and patient reports she is now feeling better, pain is decreasing and she is no longer nauseous. Will continue to monitor.
[2019-01-03] MEDS: Mycophenolate 250mg cap ORAL SCH ×2 (09:55→20:21)
[2019-01-03 12:00] VITALS: BP 153/76
--- NOTE | 2019-01-03 13:22 | General Progress Note ---
Progress Note Progress Note Tmax 99.5 Continued episodes of increased abdominal pain and emesis Continued leaking of ileostomy appliance Abdomen and stoma exam unchanged Urine 2200 ileostomy 480cc WBC up 11,100 Hgb down 8.5 Platelets down 711,000 B"UN down 20 Cr up 1.3 P and Mg now wnl alk phos down albumin still 1.9 despite TPN Imp. Retracted ileostomy stoma R/O intra-abdominal infection/collection Plan: NPO Surgery in AM - revision of ileostomy and laparotomy Full discussion with patient regarding indications, alternatives and risks. Lars Sotomayor MD Jan 03, 2019 13:22
--- NOTE | 2019-01-03 14:11 | Cardiology Progress Note ---
Assessment/Plan Status Narrative 1. Malfunctioning Kock pouch continent ileostomy. 2. History of ulcerative colitis. 3. History of primary sclerosing cholangitis. 4. Status post multiple abdominal operations. 4.1. Appendectomy in 1964. 4.2. Proctocolectomy and Kock pouch in 1978. 4.3. Total abdominal hysterectomy and bilateral salpingo-oophorectomy 1983 4.4. Cholecystectomy in 1985. 4.5. Orthotopic liver transplantation in 1999. 4.6. Revision of Kock pouch and repair of fistula in 2010. HTN- New onset-improved with meds Tachycardia- improved with IV Fluids and Beta Blockers. BP slightly elevated - probably due to pain/discomfort- now on Norvasc / Lisinopril and Metoprolol Assessment/Plan Clonidine 0.1 mg Q6h PRN Metoprolol 25 mg QD Zestril 40 mg QD. Increased Norvasc 5 mg BID Monitor BP Planned for re-op on Saturday pain management eval for post op care Encouraged increased ambulation. Discussed with RN. Subjective Cardiovascular: Reports: no symptoms Respiratory: Reports: no symptoms Gastrointestinal/Abdominal: Reports: abdominal pain - improved Genitourinary: Reports: no symptoms Subjective No fever on ABx. Tolerating solids Abdominal pain improved Ambulating BP 155 Objective Last 24 Hour Vital Signs Date Time Temp Pulse Resp B/P (MAP) Pulse Ox O2 Delivery O2 Flow Rate FiO2 01/03/19 12:00 98.4 81 18 153/76 (101) 95 01/03/19 09:10 86 166/82 01/03/19 09:09 166/82 01/03/19 09:09 86 166/82 01/03/19 09:00 Room Air 01/03/19 08:17 96 Room Air 01/03/19 08:00 98.6 86 18 166/82 (110) 99 01/03/19 04:00 98.8 80 16 147/73 (97) 98 01/03/19 00:00 98.6 78 18 138/64 (88) 95 01/02/19 21:05 162/73 01/02/19 21:00 Room Air 01/02/19 20:00 99.5 81 16 162/73 (102) 95 01/02/19 19:54 97 Room Air 21 01/02/19 18:04 84 138/70 01/02/19 16:00 99.0 84 18 138/70 (92) 97 Cardiovascular: normal rate, regular rhythm, no gallop/murmur Respiratory/Chest: lungs clear Abdomen: normal bowel sounds, non tender, soft Extremities: non-tender, normal inspection, no calf tenderness, no swelling Intake and Output 01/02/19 01/03/19 18:59 06:59 Intake Total 2794.664 ml 830 ml Output Total 1155 ml 1625 ml Balance 1639.664 ml -795 ml Intake Oral 950 ml 480 ml IV Total 1844.664 ml 350 ml Output Urine Total 1000 ml 1200 ml Emesis 100 ml Other 155 ml 325 ml # Voids 4 Laboratory Tests Test 01/03/19 05:05 White Blood Count 11.1 K/UL (4.8-10.8) H Red Blood Count 2.82 M/UL (4.20-5.40) L Hemoglobin 8.5 G/DL (12.0-16.0) L Hematocrit 26.2 % (37.0-47.0) L Mean Corpuscular Volume 93 FL (80-99) Mean Corpuscular Hemoglobin 30.1 PG (27.0-31.0) Mean Corpuscular Hemoglobin Concent 32.5 G/DL (32.0-36.0) Red Cell Distribution Width 13.8 % (11.6-14.8) Platelet Count 711 K/UL (150-450) H Mean Platelet Volume 5.4 FL (6.5-10.1) L Neutrophils (%) (Auto) 82.4 % (45.0-75.0) H Lymphocytes (%) (Auto) 8.4 % (20.0-45.0) L Monocytes (%) (Auto) 5.6 % (1.0-10.0) Eosinophils (%) (Auto) 3.1 % (0.0-3.0) H Basophils (%) (Auto) 0.6 % (0.0-2.0) Prothrombin Time 10.0 SEC (9.30-11.50) Prothromb Time International Ratio 0.9 (0.9-1.1) Sodium Level 136 MMOL/L (136-145) Potassium Level 4.0 MMOL/L (3.5-5.1) Chloride Level 104 MMOL/L (98-107) Carbon Dioxide Level 22 MMOL/L (21-32) Anion Gap 10 mmol/L (5-15) Blood Urea Nitrogen 20 mg/dL (7-18) H Creatinine 1.3 MG/DL (0.55-1.30) Estimat Glomerular Filtration Rate 40.9 mL/min (>60) Glucose Level 167 MG/DL (74-106) H Calcium Level 9.6 MG/DL (8.5-10.1) Phosphorus Level 3.2 MG/DL (2.5-4.9) Magnesium Level 2.2 MG/DL (1.8-2.4) Total Bilirubin 0.2 MG/DL (0.2-1.0) Aspartate Amino Transf (AST/SGOT) 15 U/L (15-37) Alanine Aminotransferase (ALT/SGPT) 17 U/L (12-78) Alkaline Phosphatase 286 U/L (46-116) H Total Protein 6.5 G/DL (6.4-8.2) Albumin 1.9 G/DL (3.4-5.0) L Globulin 4.6 g/dL Albumin/Globulin Ratio 0.4 (1.0-2.7) L Micha Ziegler MD Jan 03, 2019 14:11
--- NOTE | 2019-01-03 14:38 | Infectious Diseases Prog Note ---
Assessment/Plan Assessment/Plan ASSESSMENT AND PLAN: 1. leukocytosis, fevers, ? sepsis, ? source, ? intra-abdominal, ? line - blood cultures negative, elevated platelets, fungemia risk with hx of tpn and abx - zosyn - day # 7, add micafungin for fungemia coverage (drug interactions with Diflucan) - mild leukocytosis, lgt, - monitor labs, wbc, platelets - surveillance cultures - for surgery tomorrow - d/w Dr. Sotomayor - d/w patient 2. 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 3. Liver transplantation. 4. Sclerosing cholangitis. 5. Ulcerative colitis. 6. The patient is anemic. 7. History of cholecystectomy, appendectomy, hysterectomy, and proctocolectomy. 8. History of multiple abdominal operations. 9. Allergies to codeine, hydromorphone, metoclopramide, morphine, and sulfa. 10. Family doctor is Noncontributory. 11. Social history is negative. 12. MAR was noted. 13. Case discussed with RN. 14. Case discussed with the patient. 15. Continue treatment per Dr. Sotomayor and consultants. Subjective Constitutional: Reports: fever - lgt, fatigue HEENT: Denies: congestion Respiratory: Denies: shortness of breath Cardiovascular: Denies: chest pain Gastrointestinal/Abdominal: Denies: nausea, vomiting, diarrhea Genitourinary: Reports: other - no morales Neurologic: Denies: headache Skin: Denies: rash Hematologic: Denies: bleeding Musculoskeletal: Denies: pain Allergies: Coded Allergies: CODEINE (Verified Allergy, Severe, 12/17/18) Face contractions HYDROMORPHONE (Verified Allergy, Severe, Itching, 12/17/18) Itching whole body METOCLOPRAMIDE (Verified Allergy, Severe, 12/17/18) Face contractions MORPHINE (Verified Allergy, Severe, Shortness of Breath, 12/17/18) SULFA (SULFONAMIDE ANTIBIOTICS) (Verified Allergy, Severe, 12/17/18) Face contractions Objective Vital Signs Last 24 Hour Vital Signs Date Time Temp Pulse Resp B/P (MAP) Pulse Ox O2 Delivery O2 Flow Rate FiO2 01/03/19 12:00 98.4 81 18 153/76 (101) 95 01/03/19 09:10 86 166/82 01/03/19 09:09 166/82 01/03/19 09:09 86 166/82 01/03/19 09:00 Room Air 01/03/19 08:17 96 Room Air 21 01/03/19 08:00 98.6 86 18 166/82 (110) 99 01/03/19 04:00 98.8 80 16 147/73 (97) 98 01/03/19 00:00 98.6 78 18 138/64 (88) 95 01/02/19 21:05 162/73 01/02/19 21:00 Room Air 01/02/19 20:00 99.5 81 16 162/73 (102) 95 01/02/19 19:54 97 Room Air 21 01/02/19 18:04 84 138/70 01/02/19 16:00 99.0 84 18 138/70 (92) 97 Height (Feet): 5 Height (Inches): 5.00 Weight (Pounds): 136 General Appearance: no acute distress HEENT: normocephalic, atraumatic, anicteric, mucous membranes moist Respiratory/Chest: lungs clear, normal breath sounds, no respiratory distress Cardiovascular: normal rate, regular rhythm, no gallop/murmur, no JVD Abdomen: normal bowel sounds, soft, non tender, no organomegaly, non distended Genitourinary: other Extremities: no cyanosis Skin: no rash Neurologic/Psychiatric: administrative executive II-XII grossly normal, alert, oriented x 3, responsive Lymphatic: no neck adenopathy Musculoskeletal: normal muscle bulk Objective CT scan abdomen and pelvis: IMPRESSION: Status post recent abdominal surgery with creation of a left lower quadrant Yajaira ileostomy. Good bowel and bag opacification with no evidence of bowel obstruction. Unusual, markedly distended unopacified loop of bowel in the pelvis. Although unopacified, this does not appear to be an abscess as there is a wall and other characteristics more in keeping with bowel. Would consider a large diverticulum or possibly remnant of the previous Kock pouch or part of the small bowel leading to the old pouch as those segments are sometimes quite distended. Status post liver transplant. Status post cholecystectomy. Mild basal atelectasis. Chest x-ray - no pna, report noted CT abdomen/pelvis - 12/30/18 - Impression: Postsurgical changes, as described Unusual tubular structure filled mostly with gas but also some fluid communicating with the small bowel at the site of a right lower quadrant enteroenterostomy. Uncertain as to whether this represents an unusual large diverticulum, a true extraluminal gas collection, or a portion of an old continent ileostomy pouch. This is also previously described Dilated proximal small bowel proximal to the enteroenterostomy with slow forward propulsion of contents. Partial small bowel obstruction not completely excludable although unlikely given evidence of forward propulsion of contrast and filling of the ileostomy on prior 12/26/2018 exam; findings most likely functional in nature. Correlate with clinical findings Small anterior pelvic and deep pelvic fluid pockets, most likely represent retained postoperative fluid collections. Abscess as etiology of any of these not completely excludable; correlation with clinical findings recommended Postsurgical changes of the liver status post transplantation Punctate nonobstructing bilateral intrarenal calculi Bilateral basilar pulmonary parenchymal atelectasis and/or scarring Images previously reviewed in person with Dr. Sotomayor Microbiology Date/Time Source Procedure Growth Status 12/27/18 13:38 Blood Blood Culture - Final NO GROWTH AFTER 5 DAYS Complete 12/27/18 10:15 Urine,Clean Catch Urine Culture - Final NO GROWTH AFTER 48 HOURS Complete Laboratory Tests Test 01/03/19 05:05 White Blood Count 11.1 K/UL (4.8-10.8) H Red Blood Count 2.82 M/UL (4.20-5.40) L Hemoglobin 8.5 G/DL (12.0-16.0) L Hematocrit 26.2 % (37.0-47.0) L Mean Corpuscular Volume 93 FL (80-99) Mean Corpuscular Hemoglobin 30.1 PG (27.0-31.0) Mean Corpuscular Hemoglobin Concent 32.5 G/DL (32.0-36.0) Red Cell Distribution Width 13.8 % (11.6-14.8) Platelet Count 711 K/UL (150-450) H Mean Platelet Volume 5.4 FL (6.5-10.1) L Neutrophils (%) (Auto) 82.4 % (45.0-75.0) H Lymphocytes (%) (Auto) 8.4 % (20.0-45.0) L Monocytes (%) (Auto) 5.6 % (1.0-10.0) Eosinophils (%) (Auto) 3.1 % (0.0-3.0) H Basophils (%) (Auto) 0.6 % (0.0-2.0) Prothrombin Time 10.0 SEC (9.30-11.50) Prothromb Time International Ratio 0.9 (0.9-1.1) Sodium Level 136 MMOL/L (136-145) Potassium Level 4.0 MMOL/L (3.5-5.1) Chloride Level 104 MMOL/L (98-107) Carbon Dioxide Level 22 MMOL/L (21-32) Anion Gap 10 mmol/L (5-15) Blood Urea Nitrogen 20 mg/dL (7-18) H Creatinine 1.3 MG/DL (0.55-1.30) Estimat Glomerular Filtration Rate 40.9 mL/min (>60) Glucose Level 167 MG/DL (74-106) H Calcium Level 9.6 MG/DL (8.5-10.1) Phosphorus Level 3.2 MG/DL (2.5-4.9) Magnesium Level 2.2 MG/DL (1.8-2.4) Total Bilirubin 0.2 MG/DL (0.2-1.0) Aspartate Amino Transf (AST/SGOT) 15 U/L (15-37) Alanine Aminotransferase (ALT/SGPT) 17 U/L (12-78) Alkaline Phosphatase 286 U/L (46-116) H Total Protein 6.5 G/DL (6.4-8.2) Albumin 1.9 G/DL (3.4-5.0) L Globulin 4.6 g/dL Albumin/Globulin Ratio 0.4 (1.0-2.7) L Current Medications Medications (Trade) Dose Ordered Sig/Kajal Route PRN Reason Start Time Stop Time Status Last Admin Dose Admin Acetaminophen (Tylenol) 650 mg Q4H PRN ORAL Mild Pain/Temp > 100.2 12/26/18 21:00 01/25/19 20:59 12/26/18 21:11 Acetaminophen (Tylenol) 650 mg Q6H PRN ORAL headache 12/17/18 14:45 01/16/19 14:44 12/17/18 14:47 Al Hydroxide/Mg Hydroxide (Mylanta) 30 ml Q6H PRN ORAL dyspepsia 12/28/18 09:30 01/27/19 09:29 01/03/19 02:31 Amlodipine Besylate (Norvasc) 5 mg BID ORAL 01/03/19 09:00 02/02/19 08:59 01/03/19 09:10 Chlorhexidine Gluconate (Yulia-Hex 2%) 1 applic DAILY@2000 TOPIC 12/17/18 20:00 01/16/19 19:59 01/02/19 20:46 Clonidine HCl (Catapres Tab) 0.1 mg Q6H PRN SL SBP>150 mmHg 12/22/18 22:00 01/21/19 21:59 01/02/19 21:05 Dextrose 1,000 ml @ 0 mls/hr Q24H PRN IV PN interrupted or unavailable 12/20/18 20:00 01/19/19 19:59 Dextrose (Dextrose 50%) 25 ml Q30M PRN IV Hypoglycemia 12/22/18 12:45 01/21/19 12:44 Dextrose (Dextrose 50%) 50 ml Q30M PRN IV Hypoglycemia 12/22/18 12:45 01/21/19 12:44 Dextrose/ Electrolytes 1,000 ml @ 50 mls/hr Q20H IV 01/03/19 20:00 02/02/19 19:59 Diphenhydramine HCl (Benadryl) 50 mg Q4H PRN ORAL Itching 12/27/18 20:00 01/26/19 19:59 12/27/18 20:37 Famotidine (Pepcid I.v.) 20 mg Q12HR IVP 01/03/19 09:00 02/02/19 08:59 01/03/19 09:10 Fat Emulsion Intravenous 216 ml/Amino Acids/ Electrolytes/ Dextrose 1,776 ml @ 74 mls/hr Q24H IV 12/30/18 20:00 01/29/19 19:59 01/02/19 20:49 Hydromorphone HCl (Dilaudid) 0.5 mg Q4H PRN SUBQ Severe Breakthru Pain (>7) 12/29/18 12:30 01/05/19 12:29 12/31/18 23:17 Insulin Aspart (NovoLOG) Q6HR SUBQ 12/22/18 18:00 01/21/19 17:59 01/03/19 12:53 Ketorolac Tromethamine (Toradol 30mg) 15 mg Q6H PRN IV Severe Pain (Pain Scale 7-10) 01/01/19 15:45 01/31/19 15:44 01/03/19 09:10 Levothyroxine Sodium (Synthroid) 125 mcg DAILY@0630 ORAL 12/18/18 06:30 01/17/19 06:29 01/03/19 05:20 Lisinopril (Prinivil) 40 mg DAILY ORAL 12/31/18 09:00 01/30/19 08:59 01/03/19 09:09 Metoprolol Succinate (Toprol XL) 25 mg DAILY ORAL 12/24/18 09:00 01/23/19 08:59 01/03/19 09:09 Micafungin Sodium 100 mg/Sodium Chloride 110 ml @ 110 mls/hr Q24H IVPB 01/03/19 14:30 01/10/19 14:29 UNV Mycophenolate Mofetil (Cellcept) 750 mg Q12HR ORAL 12/25/18 09:00 01/24/19 08:59 01/03/19 09:55 Ondansetron HCl (Zofran) 4 mg Q6H PRN IVP Nausea & Vomiting 12/21/18 07:15 01/20/19 07:14 01/03/19 08:09 Oxycodone/ Acetaminophen (Percocet 5-325) 1 tab Q4H PRN ORAL Moderate Pain (Pain Scale 4-6) 01/01/19 15:45 01/08/19 15:44 01/03/19 12:49 Pantoprazole (Protonix) 40 mg DAILY IVP 12/26/18 09:00 01/25/19 08:59 01/03/19 09:09 Piperacillin Sod/ Tazobactam Sod 3.375 gm/Dextrose 100 ml @ 25 mls/hr EVERY 8 HOURS IVPB 01/03/19 14:00 01/08/19 13:59 01/03/19 14:24 Prochlorperazine (Compazine) 10 mg Q6H PRN IVP Nausea & Vomiting 12/20/18 09:15 01/19/19 09:14 01/03/19 09:10 Tacrolimus (Prograf) 1 mg DAILY ORAL 12/19/18 09:00 01/18/19 08:59 01/03/19 09:09 Tacrolimus (Prograf) 2 mg BEDTIME ORAL 12/17/18 21:00 01/16/19 20:59 01/02/19 20:47 Trazodone HCl (Desyrel) 25 mg HSPRN PRN ORAL INSOMNIA 12/30/18 16:15 01/29/19 16:14 01/02/19 03:08 Philly Shelby MD Jan 03, 2019 14:38
[2019-01-03] MEDS ORDERED: Cathflo Alteplase 2mg Inj INJ SCH (15:45)
--- NOTE | 2019-01-03 15:46 | NUR ---
CASE MANAGEMENT:REVIEW 01/03/19 SI: POD #16 S/P RESECTION,ENTEROENTEROSTOMY AND CREATION OF SUKHI ILEOSTOMY INTERMITTENT NAUSEA T 98.4 HR 81 RR 18 B/P 153/76 SATS 95% ON RA WBC 11.1 BUN 20 GLU 167 ALP 286 IS: IV K-PHOS X1 TPN/IL @ 74/HR IV ZOSYN Q8HRS IV VENOFER QHS IV PROTONIX QD IVF@25/HR LISINOPRIL PO QD NORVASC PO QPM TOPROL XL PO QD CELLCEPT PO Q12 DILAUDID SQ Q4HRS PRN : MED/SURG STATUS 3 EAST PLAN: PLANNED TO RE-OPERATE ON SATURDAY>>> revision of ileostomy and laparotomy
--- NOTE | 2019-01-03 15:49 | NUR ---
INSURANCE REVIEWS FAXED TO: [facility]ASMANY SAMS: ANKIT [place] P:[phone] F: [phone]
[2019-01-03 16:00] VITALS: BP 139/69
[2019-01-03] MEDS ORDERED: Micafungin 100 MG in NS 110 ML IVPB SCH ×2 (16:00→20:00)
--- NOTE | 2019-01-03 16:13 | NUR ---
NURSE NOTES: One of PICC lumens occluded, unable to flush or aspirate, informed charge nurse Nurys who attempted to flush line but was unsuccessful. Charge nurse called Dr. Sotomayor and received order for cathoflo. Zoysn paused at 1430 and TPN running through non-occluded port as ordered. Cathflo dwelling now, will assess catheter patency in a half an hour per policy.
--- NOTE | 2019-01-03 17:00 | NUR ---
NURSE NOTES: Occluded PICC line lumen successfully declotted. Able to aspirate blood from lumen, lumen is flushing well, changed cap per policy, restarted Zosyn and maintenance IVF. Will continue to monitor.
--- NOTE | 2019-01-03 18:30 | NUR ---
NURSE NOTES: Total ileo output for my shift: 475mL Total urine output: 1300mL Patient's pain is well managed with PO pain medication at this time, no leaking from external appliance during my shift.
--- NOTE | 2019-01-03 19:33 | NUR ---
HAND-OFF: Report given to Asad NGUYEN. Addendum: 01/03/19 at 1937 by Misti Rodgers RN Add: Endorsed to collect urine per order.
[2019-01-03 20:00] VITALS: BP 136/75
[2019-01-03] MEDS: Dyna-Hex 2% Top Sol 2oz TOPIC SCH (20:20)
[2019-01-03] MEDS: Fat Emulsion Iv 20% 216 ML in Tpn 1,560 ML IV SCH (20:22)
--- NOTE | 2019-01-03 20:30 | NUR ---
NURSE NOTES: received report from AM RN Misti. Patient is resting in bed comfortably running TPN and fluids D5 1/2NS +40 KCL to left upper arm PICC. Line and dressing is c/d/i. Left lower abdominal stoma is red and moist draining liquid stool. Patient is alert and oriented with bed in low position, locked and 2 siderails up. Will continue to monitor.
[2019-01-03 21:10] LABS: APPEARANCE,URINE CLEAR; BILIRUBIN, URINE NEGATIVE (NEGATIVE); COLOR,URINE PALE YELLOW; GLUCOSE, URINE (UA) NEGATIVE (NEGATIVE); KETONES,URINE NEGATIVE (NEGATIVE); LEUKOCYTE ESTERASE ,URINE 1+ (NEGATIVE); NITRITE,URINE NEGATIVE (NEGATIVE); PH,URINE 8 (4.5-8.0); PROTEIN,URINE NEGATIVE (NEGATIVE); UROBILINOGEN,URINE NORMAL MG/DL (0.0-1.0)
[2019-01-03] MEDS: TraZODone HCl 25 mg tablet ORAL PRN (22:02)
[2019-01-04] VITALS (16 sets, daily range): BP systolic 146–175; BP diastolic 63–98
[2019-01-04] MEDS: oxyCODONE HCL/Acetaminophen 5/325mg ORAL PRN ×2 (02:14→14:22)
[2019-01-04] MEDS: Levothyroxine 125mcg tab ORAL SCH ×2 (05:09→05:31)
[2019-01-04] MEDS: NovoLOG Insulin Flexpen SUBQ SCH ×2 (05:11→23:57)
[2019-01-04 06:01] LABS: BASOPHILS % (AUTO) 0.6 % (0.0-2.0); EOSINOPHILS % (AUTO) 3.4 % (0.0-3.0); HEMATOCRIT 29.2 % (37.0-47.0); HEMOGLOBIN 9.4 G/DL (12.0-16.0); LYMPHOCYTES % (AUTO) 8.5 % (20.0-45.0); MEAN CORPUSCULAR VOLUME 93 FL (80-99); MONOCYTES % (AUTO) 4.6 % (1.0-10.0); NEUTROPHILS % (AUTO) 82.9 % (45.0-75.0); PLATELET COUNT 744 K/UL (150-450); RED BLOOD COUNT 3.15 M/UL (4.20-5.40); RED CELL DISTRIBUTION WIDTH 14.4 % (11.6-14.8); WHITE BLOOD COUNT 11.8 K/UL (4.8-10.8)
[2019-01-04 06:28] LABS: ALANINE AMINOTRANSFERASE 18 U/L (12-78); ALBUMIN/GLOBULIN RATIO 0.4 (1.0-2.7); ALKALINE PHOSPHATASE 297 U/L (46-116); ANION GAP 9 mmol/L (5-15); ASPARTATE AMINO TRANSFERASE 16 U/L (15-37); BILIRUBIN,TOTAL 0.2 MG/DL (0.2-1.0); BLOOD UREA NITROGEN 22 mg/dL (7-18); CALCIUM 9.8 MG/DL (8.5-10.1); CARBON DIOXIDE 23 MMOL/L (21-32); CHLORIDE 106 MMOL/L (98-107); CREATININE 1.2 MG/DL (0.55-1.30); POTASSIUM 4.1 MMOL/L (3.5-5.1); SODIUM 138 MMOL/L (136-145)
--- NOTE | 2019-01-04 07:08 | General Progress Note ---
Assessment/Plan Status: unchanged Assessment/Plan: (1) Malfunctioning Kock Pouch (2) History of liver transplant Assessment/Plan 1. Malfunctioning Kock pouch continent ileostomy with increasing difficulty with intubation and increasing incontinence of stool and gas. 2. History of ulcerative colitis. 3. History of primary sclerosing cholangitis. 4. STATUS POST MULTIPLE ABDOMINAL OPERATIONS: 4.1. Proctocolectomy and Kock pouch continent ileostomy in 1978. 4.2. Total abdominal hysterectomy and bilateral salpingo-oophorectomy in 1983. 4.3. Appendectomy age 15. 4.4. Cholecystectomy in 1985. 4.5. Liver transplantation in 1999. 4.6. Laparotomy with revision of Kock pouch and repair of pouch cutaneous fistula in 2010. Status post exploratory laparotomy with lysis of the adhesions and continent pouch repair zofran prn, compazine prn fu LFTs>>> stable now on TPN cellcept 750 BID prograft 3 gm per day monitor for lytes protonix and pepcid will fu labs Retracted ileostomy stoma per surgery>>> pending surgical repair for today Subjective ROS Limited/Unobtainable: Yes Allergies: Coded Allergies: CODEINE (Verified Allergy, Severe, 12/17/18) Face contractions HYDROMORPHONE (Verified Allergy, Severe, Itching, 12/17/18) Itching whole body METOCLOPRAMIDE (Verified Allergy, Severe, 12/17/18) Face contractions MORPHINE (Verified Allergy, Severe, Shortness of Breath, 12/17/18) SULFA (SULFONAMIDE ANTIBIOTICS) (Verified Allergy, Severe, 12/17/18) Face contractions Subjective abd pain Objective Last 24 Hour Vital Signs Date Time Temp Pulse Resp B/P (MAP) Pulse Ox O2 Delivery O2 Flow Rate FiO2 01/04/19 04:00 98.9 81 20 150/76 (100) 99 01/04/19 00:00 98.4 83 18 146/75 (98) 97 01/03/19 21:00 Room Air 01/03/19 20:18 97 Room Air 21 01/03/19 20:00 97.8 82 18 136/75 (95) 98 01/03/19 17:40 82 139/69 01/03/19 16:00 98.7 82 18 139/69 (92) 96 01/03/19 12:00 98.4 81 18 153/76 (101) 95 01/03/19 09:10 86 166/82 01/03/19 09:09 166/82 01/03/19 09:09 86 166/82 01/03/19 09:00 Room Air 01/03/19 08:17 96 Room Air 21 01/03/19 08:00 98.6 86 18 166/82 (110) 99 Intake and Output 01/03/19 01/04/19 19:00 07:00 Intake Total 1188 ml 1338 ml Output Total 1775 ml 2670 ml Balance -587 ml -1332 ml Intake Oral 100 ml 0 ml IV Total 1088 ml 1338 ml Output Urine Total 1300 ml 2300 ml Other 475 ml 370 ml # Voids 5 Laboratory Tests 01/03/19 20:57: Urine Color Pale yellow, Urine Appearance Clear, Urine pH 8, Urine Specific [place] 1.010, Urine Protein Negative, Urine Glucose (UA) Negative, Urine Ketones Negative, Urine Blood Negative, Urine Nitrite Negative, Urine Bilirubin Negative, Urine Urobilinogen Normal, Urine Leukocyte Esterase 1+H, Urine RBC 0, Urine WBC 0-2, Urine Squamous Epithelial Cells Occasional, Urine Bacteria Occasional 01/04/19 04:55: White Blood Count 11.8H, Red Blood Count 3.15L, Hemoglobin 9.4L, Hematocrit 29.2L, Mean Corpuscular Volume 93, Mean Corpuscular Hemoglobin 29.7, Mean Corpuscular Hemoglobin Concent 32.0, Red Cell Distribution Width 14.4, Platelet Count 744H, Mean Platelet Volume 5.0L, Neutrophils (%) (Auto) 82.9H, Lymphocytes (%) (Auto) 8.5L, Monocytes (%) (Auto) 4.6, Eosinophils (%) (Auto) 3.4H, Basophils (%) (Auto) 0.6, Sodium Level 138, Potassium Level 4.1, Chloride Level 106, Carbon Dioxide Level 23, Anion Gap 9, Blood Urea Nitrogen 22H, Creatinine 1.2, Estimat Glomerular Filtration Rate 44.8, Glucose Level 165H, Calcium Level 9.8, Total Bilirubin 0.2, Aspartate Amino Transf (AST/SGOT) 16, Alanine Aminotransferase (ALT/SGPT) 18, Alkaline Phosphatase 297H, Total Protein 6.9, Albumin 2.0L, Globulin 4.9, Albumin/Globulin Ratio 0.4L Height (Feet): 5 Height (Inches): 5.00 Weight (Pounds): 136 General Appearance: alert EENT: normal ENT inspection Neck: supple Cardiovascular: normal rate Respiratory/Chest: lungs clear Abdomen: soft, decreased bowel sounds, tender Extremities: non-tender Max Dozier MD Jan 04, 2019 07:08
--- NOTE | 2019-01-04 07:37 | NUR ---
NURSE NOTES: WALKING ROUNDS DONE WITH OUTGOING RN. PATIENT AWAKE IN BED. ILEO APPLIANCE IN PLACE. LUE PICC LINE INTACT. TPN/ IVFS RUNNING AT CURRENT RATE. PATIENT NPO FOR SURGERY TODAY. PT. AWARE. DISCUSSED PLAN OF CARE FOR THE DAY. QUESTIONS ANSWERED, NEEDS MET. BED IN LOW AND LOCKED POSITION. CALL LIGHT WITHIN REACH.SPOUSE AT BEDSIDE.
--- NOTE | 2019-01-04 07:58 | Pre-Procedure Note/Attestation ---
Pre-Procedure Note/Attestation Complete Prior to Procedure Planned Procedure: not applicable Procedure Narrative: Exploratory laparotomy and revision of ileostomy Indications for Procedure Pre-Operative Diagnosis: intra-abdominal infection and retracted ileostomy Attestation I attest that I discussed the nature of the procedure; its benefits; risks and complications; and alternatives (and the risks and benefits of such alternatives ), prior to the procedure, with the patient (or the patient's legal installation service representative). I attest that, if there was a reasonable possibility of needing a blood transfusion, the patient (or the patient's legal installation service representative) was given the [facility] standardized written summary, pursuant to the Jesus Opal Blood Safety Act ([place] Health and Safety Code # 1645, as amended). I attest that I re-evaluated the patient just prior to the surgery and that there has been no change in the patient's H&P, except as documented below:none Lars Sotomayor MD Jan 04, 2019 07:58
--- NOTE | 2019-01-04 08:03 | NUR ---
HAND-OFF: Report given to Mayuri Turcios RN. Patient in stable condition. Prepped for surgical procedure in AM.
[2019-01-04] MEDS ORDERED: NeoSporin Gu Irrig 1ml Amp IRRIG ONE (08:29)
[2019-01-04] MEDS ORDERED: Bacitracin 50000 Units Vial ONE (08:29)
[2019-01-04] MEDS ORDERED: Bacitracin Oint 15gm Tube TOPIC ONE (08:29)
[2019-01-04] MEDS ORDERED: Midazolam 2mg/2ml Inj ONE (08:35)
[2019-01-04] MEDS ORDERED: fentaNYL 100 mcg/2 mL IV ONE ×2 (08:35→13:01)
--- NOTE | 2019-01-04 08:35 | NUR ---
NURSE NOTES: PATIENT SENT TO OR VIA BED. PATIENT IDENTIFIERS USED WITH TRANSPORTER. SHIFT PHYSICAL ASSESSMENT DONE EARLY.
[2019-01-04] MEDS ORDERED: LR 1000ml 1,000 ML IVLG SCH (08:42)
[2019-01-04] MEDS ORDERED: LORazepam Inj 2mg/ml 1ml IV PRN (08:45)
[2019-01-04] MEDS ORDERED: DiphenhydrAMINE 50mg/ml Inj IVP PRN (08:45)
[2019-01-04] MEDS ORDERED: Meperidine 50mg/ml Inj(FOR RIGORS ONLY) IVP PRN (08:45)
[2019-01-04] MEDS ORDERED: fentaNYL 100 mcg/2 mL IV PRN ×4 (08:45→20:00)
[2019-01-04] MEDS ORDERED: Acetaminophen (Non formulary) 100 ML IV ONE (08:45)
[2019-01-04] MEDS ORDERED: Midazolam 2mg/2ml Inj IVP PRN (08:45)
[2019-01-04] MEDS ORDERED: Atropine Sulfate 0.4mg/ml inj IVP PRN (08:45)
[2019-01-04] MEDS ORDERED: Lidocaine 1% Plain 30 ml INJ ONE ×2 (08:52→10:47)
[2019-01-04] MEDS ORDERED: Sodium Chloride 10ml vial INJ ONE (08:53)
[2019-01-04] MEDS ORDERED: Dexamethasone 4mg/ml vial ONE (08:53)
[2019-01-04] MEDS ORDERED: Propofol 200mg/20ml IV ONE ×2 (08:53→10:47)
[2019-01-04] MEDS ORDERED: Lidocaine 1% MPF 10mg/ml 5ml ONE (08:54)
[2019-01-04] MEDS ORDERED: Propofol 1,000mg/ 100ml btl IV ONE (09:00)
[2019-01-04] MEDS ORDERED: Rocuronium Bromide 50mg/5ml Inj IV ONE (09:00)
[2019-01-04] MEDS ORDERED: LR 1000ml ONE (09:00)
[2019-01-04] MEDS ORDERED: NS Irrig 1000ml IRRIG ONE (09:45)
[2019-01-04] MEDS ORDERED: Surgicel 4in x 8in TOPIC ONE (12:21)
[2019-01-04] MEDS ORDERED: Glycopyrrolate 0.2mg/ml 1ml Vial ONE (13:00)
[2019-01-04] MEDS ORDERED: Naloxone 0.4mg/ml Inj IV PRN ×2 (13:45→19:00)
--- NOTE | 2019-01-04 13:45 | Brief Operative Note ---
Immediate Post Operative Note Operative Note Pre-op Diagnosis: intra-abdominal infection and retracted ileostomy Procedure: laparotomy with small bowel resections, relocation of ileostomy to RLQ, repair of cystotomy, gastrostomy Post-op Diagnosis: same Post-op Diagnosis: same as pre-op plus - severe adhesions Surgeon: lorena Infrastructure Consultant: chucho Anesthesiologist: mariluz Anesthesia: general Specimen: yes - bowel segments and prior ileostomy Complications: yes - cystotomy - repaired Condition: stable Fluids: 2 units PRBC, 500cc albumin, see anesthesia record Estimated Blood Loss: volume - 700cc Drains: other - 18 Fr gastrostomy Implant(s) used?: No Lars Sotomayor MD Jan 04, 2019 13:45
--- NOTE | 2019-01-04 13:52 | Immediate Post-Op Evaluation ---
Immediate Post-Op Evalulation Immediate Post-Op Evalulation Procedure: Exploratory Laparotomy, Bowel Resection Date of Evaluation: Jan 04, 2019 Time of Evaluation: 14:02 IV Fluids: 600 LR Blood Products: 1000 Alb, 2U PRBC Estimated Blood Loss: 500 Urinary Output: 350 Blood Pressure Systolic: 154 Blood Pressure Diastolic: 65 Pulse Rate: 84 Respiratory Rate: 16 O2 Sat by Pulse Oximetry: 100 Temperature (Fahrenheit): 98.8 Pain Score (1-10): 2 Nausea: No Vomiting: No Complications 0 Patient Status: awake, reacts, patent, extubated, none Hydration Status: adequate Drug: Zosyn 3.375 mg IV Given Within 1 Hr of Incision: Yes Lalo Martin MD Jan 04, 2019 13:52
[2019-01-04] MEDS: D5 1/2NS w/KCl 40meq 1000ml 1,000 ML IV SCH ×2 (14:06→20:26)
--- NOTE | 2019-01-04 15:02 | NUR ---
PT Note Patient had exploratory laparotomy and revision of ileostomy this AM and has been transferred to ICU post-op. Will DC physical therapy at this time until new orders are received.
--- NOTE | 2019-01-04 15:10 | NUR ---
NURSE NOTES: Received PT from OR. PT VS stable, received with portable o2 tank w/ face mask saturating 100%, no respiratory distress. SCD will be placed on PT. PT received with L-PICC infusing D5 1/2 40KCL @ 50cc/hr along with TPN infushing at 74cc/hr. R-IJ CVP patent, flushing well. Will continue to monitor PT and obtain MD orders.
[2019-01-04 16:40] LABS: HEMATOCRIT 31.6 % (37.0-47.0); HEMOGLOBIN 10.6 G/DL (12.0-16.0); MEAN CORPUSCULAR VOLUME 93 FL (80-99); PLATELET COUNT 632 K/UL (150-450); RED CELL DISTRIBUTION WIDTH 12.3 % (11.6-14.8)
[2019-01-04 16:44] LABS: WHITE BLOOD COUNT 24.8 K/UL (4.8-10.8)
--- NOTE | 2019-01-04 16:45 | Operative Note - Dictated ---
DATE OF OPERATION: 01/04/2019 SURGEON: Lars Sotomayor M.D. BASIC ACOUSTIC ANALYST SURGEON: Kvng Sanchez M.D. ANESTHESIOLOGIST: Lalo Martin M.D. ANESTHESIA: General endotracheal. PREOPERATIVE DIAGNOSES: 1. Early postoperative small bowel obstruction and intra-abdominal infection and retracted Yajaira ileostomy, left lower quadrant. 2. History of ulcerative colitis. 3. History of primary sclerosing cholangitis. 4. Status post multiple abdominal operations. 4.1. Appendectomy, 1965. 4.2. Proctocolectomy and Kock pouch, 1978. 4.3. Total abdominal hysterectomy and bilateral salpingo-oophorectomy 1983 4.4. Cholecystectomy, 1985. 4.5. Orthotopic liver transplantation, 1999. 4.6. Revision of Kock pouch and repair of fistula with patient noted to have small contracted pouch, 2010. 4.7. Resection of failed Kock pouch with enteroenterostomy and creation of Yajaira ileostomy, 12/18/2018. POSTOPERATIVE DIAGNOSES: 1. Early postoperative small bowel obstruction and intra-abdominal infection and retracted Yajaira ileostomy, left lower quadrant. 2. History of ulcerative colitis. 3. History of primary sclerosing cholangitis. 4. Status post multiple abdominal operations. 4.1. Appendectomy, 1965. 4.2. Proctocolectomy and Kock pouch, 1978. 4.3. Total abdominal hysterectomy and bilateral salpingo-oophorectomy 1983 4.4. Cholecystectomy, 1985. 4.5. Orthotopic liver transplantation, 1999. 4.6. Revision of Kock pouch and repair of fistula with patient noted to have small contracted pouch, 2010. 4.7. Resection of failed Kock pouch with enteroenterostomy and creation of Yajaira ileostomy, 12/18/2018. OPERATION PERFORMED: Exploratory laparotomy with segmental small bowel resections and relocation of ileostomy to right lower quadrant. DESCRIPTION OF PROCEDURE: The patient was taken to the operating room and under general anesthesia with sequential compression device stockings in place and the ileostomy appliance removed, now she was prepped and draped in the usual fashion. Previous midline incision was reopened and ultimately had to be extended well into the upper epigastrium. There was an intense adhesion reaction with very dilated loops of small bowel with the jejunum being decompressed. The small bowel was carefully taken down with a prolonged dissection from ligament of Treitz to the ileostomy, which was dismantled in the left lower quadrant. Several inadvertent enterotomies were created despite meticulous technique due to the friability of the intestine, the early postoperative nature of the surgery and the intense adhesive reaction and dilated bowel. One segment of bowel was densely adherent in the right lower quadrant and looked like an ischemic segment with confined perforation. Inadvertent cystotomy was created, identified, and closed in two layers with continuous 2-0 chromic full-thickness locking suture, imbricated with 2-0 chromic. The duodenum was visualized and protected as was the edge of liver and spleen. The dissection stayed as close to the intestinal wall as possible to avoid ureters and major vessels. The retracted stoma itself was stenotic, likely from inadequate blood flow right up to the known stricture that had been dilated approximately 10 cm proximal to the end ileostomy. This was all resected together with the other segments. Estimated remaining length of small intestine approximately 10 feet, if it were pliable and able to be stretched normally. The stoma site in the upper part of the left lower quadrant was too inflamed to be utilized. The fascia was closed with continuous 0 PDS. A new stoma site was selected in the upper part of the right lower quadrant at an appropriate location through the rectus muscle with a circular disc of skin excised and cruciate incision in the fascia, 2 fingerbreadth abdominal wall hiatus created with hemostasis achieved with cautery. Throughout the procedure, the Thunderbeat electrosurgical device had been utilized as well to take down adhesions of remnant of omentum. The end of the small bowel with the mesentery-oriented cephalad was brought through and everted in typical Yajaira fashion with multiple interrupted 2-0 chromic sutures with a nice everted bud, well perfused. The field was copiously irrigated. Time was spent achieving hemostasis. Surgicel placed into the pelvis. The midline fascia was closed with continuous #1 looped PDS, but the abdominal wall was quite rigid and thickened. Subcutaneous tissue was irrigated and skin closed with reggie and ostomy appliance placed over the end ileostomy. The patient required 2 units of blood transfusion. ESTIMATED BLOOD LOSS: 700 mL and she was stable at the end of the operation. Final sponge and needle counts were correct. Dry sterile dressings applied. The gastrostomy flushed and connected to gravity drainage bag. Lars Sotomayor M.D. DR: LEDA JOB#: [id number] CC: BRENDEN
--- NOTE | 2019-01-04 16:55 | NUR ---
NURSE NOTES: Called MD Светлана for immediate call back, changed PT morales bag to urometer for accurate I/O. PT A/O x 4, VS stable. Within 15-20 minutes output of urometer shows 700cc bright adriana red. CN Mimi aware, awaiting call back from MD Светлана. Will continue to monitor PT.
[2019-01-04 17:00] LABS: ANION GAP 14 mmol/L (5-15); BLOOD UREA NITROGEN 24 mg/dL (7-18); CALCIUM 9.3 MG/DL (8.5-10.1); CARBON DIOXIDE 20 MMOL/L (21-32); CHLORIDE 104 MMOL/L (98-107); CREATININE 1.4 MG/DL (0.55-1.30); POTASSIUM 4.8 MMOL/L (3.5-5.1); SODIUM 137 MMOL/L (136-145)
--- NOTE | 2019-01-04 17:01 | NUR ---
NURSE NOTES: MD Светлана called back, no new orders given, advised to continue to monitor, wait for CBC/BMP results and call MD Светлана back. Will continue to monitor PT, and follow with plan of care.
[2019-01-04] MEDS ORDERED: NS 500ML ONE (17:39)
--- NOTE | 2019-01-04 18:05 | NUR ---
NURSE NOTES: MD Toney made rounds, informed of PT morales output of 1100cc since changing to urometer at 1700. PT SBP 150+, Clonidine sublingual given. Advised by Toney to only give Clonidine sublingual, NPO other meds to control PT BP. PT VS stable while present with MD Toney, no respiratory distress noted. Will continue to monitor PT.
--- NOTE | 2019-01-04 18:10 | Critical Care Progress Note ---
Assessment/Plan Status Narrative 1. UC 2. H/O multiple surgeries with malfunctioning Lock pouch- s/p revision 12/23/18 3. HTN 4. s/p Exploratory laparotomy with segmental small bowel resections and relocation of ileostomy to right lower quadrant and s/p bladder repair on 01/04/19 5. Hematuria 6. Leukocytosis 7. Post Op pain' Assessment/Plan ICU monitor IV Fluids TPN Increase Fentanyl patch to 50 Mcg/3 days Clonidine 0.1 mg Q6 h PRN- may increase as needed Monitor I/Os Monitor labs. I/S Discussed with Dr. Sotomayor and ICU Staff. Critical Care - Subjective Interval Events: 01/04/19- S/P Exploratory laparotomy with segmental small bowel resections and relocation of ileostomy to right lower quadrant. Intubation Day: Extubated Condition: stable IV Access: central IV Fluids: D5 1/2 NS at 50 cc/h Drips: TPN @74 cc/h I&O: Intake and Output 01/03/19 01/04/19 18:59 06:59 Intake Total 1213 ml 1412 ml Output Total 1775 ml 2670 ml Balance -562 ml -1258 ml Intake Oral 100 ml 0 ml IV Total 1113 ml 1412 ml Output Urine Total 1300 ml 2300 ml Other 475 ml 370 ml # Voids 5 Critical Care - Objective Last 24 Hour Vital Signs Date Time Temp Pulse Resp B/P (MAP) Pulse Ox O2 Delivery O2 Flow Rate FiO2 01/04/19 16:03 98.5 01/04/19 16:00 99.0 86 25 166/71 (102) 97 01/04/19 15:30 85 20 170/68 (102) 100 01/04/19 15:15 86 22 169/68 (101) 99 01/04/19 15:00 98.5 86 21 175/72 (106) 100 01/04/19 14:45 98.1 84 22 174/68 (103) 100 01/04/19 13:52 84 16 100 01/04/19 09:00 Room Air 01/04/19 08:00 99.4 81 19 158/81 (106) 96 01/04/19 04:00 98.9 81 20 150/76 (100) 99 01/04/19 00:00 98.4 83 18 146/75 (98) 97 01/03/19 21:00 Room Air 01/03/19 20:18 97 Room Air 21 01/03/19 20:00 97.8 82 18 136/75 (95) 98 Condition: stable Lungs: clear Heart: normal rate, regular rhythm Abdomen: soft, absent bowel sounds, other - GT in place, ileostomy Extremities: no C/C/E Accucheck: 163 Micha Ziegler MD Jan 04, 2019 18:10
--- NOTE | 2019-01-04 18:18 | Consultation ---
Consult Note Consult Note Discussed pain management with Phaarmacist. Will keep Fentanyl patch at 25 MCg/h and use 12.5 Mcg Q2 h PRN for breakthrough pain. Will change Synthroid to 100 Mcg IV/day. Micha Ziegler MD Jan 04, 2019 18:18
--- NOTE | 2019-01-04 19:30 | NUR ---
HAND-OFF: Report and PT given to Gracie.
--- NOTE | 2019-01-04 19:30 | NUR ---
NURSE NOTES: Received pt S/P Resection of failed Kock pouch, Pt complaining of pain scale of 10 sharp pain, radiating to her back .RT abdominal side with ileostomy to drain but no output. left abdominal side with Gastrostomy tube to drain with dark greenish light yellowish drainage, moderate in amt. pls see I and O, abdominal drsg dry and intact,. Will continue to monitor.
--- NOTE | 2019-01-04 19:35 | NUR ---
NURSE NOTES: TOMMY Price and PATRICK Bowman made aware of MD Светлана Prograf administration under Other Nursing Notes.
--- NOTE | 2019-01-04 19:40 | NUR ---
NURSE NOTES: Spoke with Jean, Luis MiguelD, confirmed that Fentanyl can be given subQ, [facility] system shows IV, but SUBq can be given.
--- NOTE | 2019-01-04 19:44 | NUR ---
NURSE NOTES: Spoke with Omega from Radiology and STAT Renal US, Stated that they have paged the tech and he is coming but no ETA yet. Will follow up.
[2019-01-04] MEDS ORDERED: Dextrose 10% 1,000 ML IV PRN (20:00)
--- NOTE | 2019-01-04 20:00 | NUR ---
NURSE NOTES: TPN started at 74ml/hr infusing to DEBBIE PICC line, Pt also has central line RT iJ with D51/2NS + 40meq Kcl at 50 ml/hr, site with drsg dry and intact.
--- NOTE | 2019-01-04 20:04 | NUR ---
NURSE NOTES: Fentanyl 12.5mcg Subcut Given due to pain scale of 10 , sharp pain to post op abdl site radiating to back
[2019-01-04] MEDS: Micafungin 100 MG in NS 110 ML IVPB SCH (20:26)
[2019-01-04] MEDS: Dyna-Hex 2% Top Sol 2oz TOPIC SCH (20:27)
[2019-01-04] MEDS: Fat Emulsion Iv 20% 216 ML in Tpn 1,560 ML IV SCH (20:28)
--- NOTE | 2019-01-04 21:37 | Diagnostic Imaging Report ---
Indication: Flank and abdominal pain Technique: Grayscale and duplex Doppler imaging of the kidneys performed. Comparison: None Findings: The size, contour, and echogenicity of both kidneys are within normal limits. There is trace right perinephric fluid. There is no hydronephrosis.. The right kidney measures 9.9 cm. in length. The left kidney measures 10.4 cm. in length. The IVC is patent. Urinary bladder is not visualized. Pickett catheter is present. IMPRESSION: Negative ultrasound the kidneys. Trace right perinephric fluid, nonspecific.
[2019-01-04] MEDS: Mycophenolate 250mg cap ORAL SCH (21:40)
[2019-01-04] MEDS ORDERED: Ketorolac 30mg Inj IV PRN (21:45)
[2019-01-04] MEDS: fentaNYL 100 mcg/2 mL IV PRN (22:20)
--- NOTE | 2019-01-04 22:20 | NUR ---
NURSE NOTES: Pain still unrelieved scale9-10 sharp post op abdominal pain- Fentanyl 12.5mcg subcut through left arm was given per DR Tod Ziegler order.
[2019-01-05] VITALS (24 sets, daily range): BP systolic 86–182; BP diastolic 61–97
--- NOTE | 2019-01-05 00:15 | NUR ---
NURSE NOTES: Pt C/O of being Nauseaus , Compazine 10mg Iv was given
--- NOTE | 2019-01-05 00:16 | NUR ---
NURSE NOTES: BP 171/70 Clonidine 0.1 mg Po given.
--- NOTE | 2019-01-05 02:12 | NUR ---
NURSE NOTES: SBP 153/63 NSR on the monitor, 02 sat 98%. Monitor for any discomfort.
[2019-01-05] MEDS: fentaNYL 100 mcg/2 mL IV PRN ×8 (02:27→17:46)
--- NOTE | 2019-01-05 02:27 | NUR ---
NURSE NOTES: Pt complaining of pain scale of 10, sharp pain radiating to her back - Fentanyl 12.5mcg given
[2019-01-05] MEDS: TraZODone HCl 25 mg tablet ORAL PRN (03:02)
--- NOTE | 2019-01-05 03:05 | NUR ---
NURSE NOTES: Pt complaining of unable to sleep- Desyrel 25mg po was given.
--- NOTE | 2019-01-05 03:15 | NUR ---
NURSE NOTES: Morales to gravity with dark pinkish urine moderate to lg in amt. draining to the morales cath. Dr Sotomayor was aware per Hilton NGUYEN.
--- NOTE | 2019-01-05 04:33 | NUR ---
NURSE NOTES: Pt C/O pain scale of 10 sharp pain to post op abdominal site radiating to back - Fentanyl 12.5 MCG subcut to Rt deltoid area.ws given.
[2019-01-05 04:44] LABS: HEMOGLOBIN 9.2 G/DL (12.0-16.0); MEAN CORPUSCULAR VOLUME 92 FL (80-99); PLATELET COUNT 511 K/UL (150-450); RED BLOOD COUNT 2.85 M/UL (4.20-5.40); RED CELL DISTRIBUTION WIDTH 12.5 % (11.6-14.8); WHITE BLOOD COUNT 15.6 K/UL (4.8-10.8)
--- NOTE | 2019-01-05 05:00 | NUR ---
NURSE NOTES: Sleeping well and snoring at this time.
[2019-01-05 05:25] LABS: ALANINE AMINOTRANSFERASE 22 U/L (12-78); ALBUMIN 2.6 G/DL (3.4-5.0); ALBUMIN/GLOBULIN RATIO 0.8 (1.0-2.7); ALKALINE PHOSPHATASE 148 U/L (46-116); ANION GAP 9 mmol/L (5-15); ASPARTATE AMINO TRANSFERASE 12 U/L (15-37); BILIRUBIN,TOTAL 0.5 MG/DL (0.2-1.0); BLOOD UREA NITROGEN 27 mg/dL (7-18); CALCIUM 9.3 MG/DL (8.5-10.1); CARBON DIOXIDE 21 MMOL/L (21-32); CHLORIDE 107 MMOL/L (98-107); CREATININE 1.2 MG/DL (0.55-1.30); PHOSPHORUS 2.4 MG/DL (2.5-4.9); POTASSIUM 4.5 MMOL/L (3.5-5.1); SODIUM 137 MMOL/L (136-145)
[2019-01-05] MEDS: NovoLOG Insulin Flexpen SUBQ SCH ×4 (06:03→23:59)
--- NOTE | 2019-01-05 06:33 | NUR ---
NURSE NOTES: Complaining of pain scale of 10- Fentanyl 12.5 mcg subcut RT arm given.
--- NOTE | 2019-01-05 07:10 | NUR ---
NURSE NOTES: Seen pt sleeping well at this time.vss.
--- NOTE | 2019-01-05 07:39 | NUR ---
HAND-OFF: Report given to Shelley Estrada RN.
--- NOTE | 2019-01-05 07:40 | NUR ---
NURSE NOTES: Received patient from PATRICK Bowman. Patient status post surgery for Dhillon pouch revision and placement of ileostomy. Patient had 2nd surgery during hospitalization yesterday with 500mL blood output. Patient in ICU for observation. Patient alert and oriented to time, place, person, and purpose. Patient states that she has pain 9/10 at surgical site and radiating to her lower back. Will continue to monitor and administer pain medication as ordered. Patient on 2L NC at this time with no sign of SOB or acute respiratory distress. Patient NPO except meds at this time. Patient has illeostomy of the right abdomen, surgical site/gastrostomy of the left abdomen. Gastrostomy draining green gastric content. Ileostomy not draining at this time. Surgical dressing dry and intact. Patient has a morales for intact and output and physician request. Morales draining pink/blood tinged urine with small occasional clots. Patient has left upper arm PICC line that is patent and running TPN at this time. Patient has right internal jugular triple lumen central line inserted yesterday that is patent and running D5 0.45% NS with 40mEq KCl at 50mL/hr. Patient has multiple pain medications for chronic pain. Will administer as ordered/as needed. Patient bed in low position with bed alarm on and call light in reach. Blood pressure 162/70, HR 101, SpO2 99%, and RR 16. Will continue to monitor BP and administer PRN BP meds as needed.
--- NOTE | 2019-01-05 08:43 | General Progress Note ---
Progress Note Progress Note AVSS Awake and alert c/o pain despite Fentanyl patch 25mcg and fentanyl SQ dosing Abdomen soft, incisions clean, stoma pink with edema Urine 3990 blood tinged Gastrostomy 1090 bilious Ileostomy - nil WBC 15,600 Hgb 9.2 (received 2 units PRBC during surgery yesterday) Platelets down 511,000 BUN 27 Cr 1.2 LFTs okay Albumin 2.6?? IMp: Ileus Atelectasis Post-op pain Plan: Change Fentanyl patch to 50mcg q72hrs (discussed with pharmacist) Maintain in ICU continue Pickett (repair of cystotomy) f/u labs bedrest today with SCDs Lars Sotomayor MD Jan 05, 2019 08:43
[2019-01-05] MEDS ORDERED: fentaNYL Destruction MISC SCH (08:59)
--- NOTE | 2019-01-05 09:08 | NUR ---
CASE MANAGEMENT:REVIEW 01/04/19 SI: POD #17 S/P RESECTION,ENTEROENTEROSTOMY AND CREATION OF SUKHI ILEOSTOMY TO SURGERY~SMALL BOWEL RESECTION AND RELOCATION OF ILEOSTOMY TO RLQ 99.4 81 19 158/81 96% ON RA WBC+24.8 BU24 CR+1.4 IS: TPN/IL @ 74/HR IV MICAFUNGIN Q24 IV ZOSYN Q8HRS IVF@50/HR CELLCEPT PO Q12 PROGRAF PO QHS LIDOCAINE PATCH : TO ICU POST OP 01/05/19 SI: POD #18 AND POD#1 S/P RESECTION,ENTEROENTEROSTOMY AND CREATION OF SUKHI ILEOSTOMY TO SURGERY~SMALL BOWEL RESECTION AND RELOCATION OF ILEOSTOMY TO RLQ 98.4 98 20 160/76 100% ON RA WBC+15.6 H/H-9.2/26.0 IS: TPN/IL @ 74/HR IV MICAFUNGIN Q24 IV ZOSYN Q8HRS IVF@50/HR IV FENTANYL Q2HRS PRN CELLCEPT PO Q12 PROGRAF PO QHS LIDOCAINE PATCH NORVASC PO BID IV SYNTHROID QD LISINOPRIL PO QD TOPROL PO QD : ICU STATUS
[2019-01-05] MEDS: Mycophenolate 250mg cap ORAL SCH ×2 (09:24→20:13)
[2019-01-05] MEDS: Pantoprazole Inj IVP SCH (09:25)
[2019-01-05] MEDS: Metoprolol Succinate XL 25mg tab ORAL SCH (09:25)
--- NOTE | 2019-01-05 10:00 | NUR ---
NURSE NOTES: Dr Sotomayor came to see the patient. Surgical dressing changed by the doctor at this time. Patient continues to have breakthru pain. MD aware. BP 166/75. Metoprolol administered at 0900. Lisinopril and Norvasc held to see how patient tolerated PO metoprolol and administered now at 1000. Will continue to monitor BP and pain.
--- NOTE | 2019-01-05 10:19 | NUR ---
*-*INSURANCE *-* UPDATED CLINICALS AND REVIEW OF 12/31 TO PRESENT HAVE BEEN FAXED TO: [facility]#[phone]
[2019-01-05] MEDS: Lisinopril 20mg tab ORAL SCH (10:23)
--- NOTE | 2019-01-05 10:49 | NUR ---
*-*INSURANCE *-* UPDATED CLINICALS AND REVIEW HAVE BEEN FAXED TO: [facility]#[phone]
--- NOTE | 2019-01-05 11:00 | Diagnostic Imaging Report ---
Indication: Abdominal pain Comparison: 12/24/2018 Single view of the abdomen obtained Findings: There is relative paucity of bowel gas. Surgical reggie and clips noted once again. There is a drain on the left side of abdomen. IMPRESSION: Limited evaluation due to relative absence of bowel gas. No significant change otherwise
--- NOTE | 2019-01-05 11:23 | GI Progress Note ---
Assessment/Plan Problems: (1) Malfunctioning Kock Pouch (2) History of liver transplant ICD Codes: Z94.4 - Liver transplant status SNOMED: [id number] Status: unchanged Status Narrative Discussed with Dr. Dozier. Assessment/Plan 1. Malfunctioning Kock pouch continent ileostomy with increasing difficulty with intubation and increasing incontinence of stool and gas. 2. History of ulcerative colitis. 3. History of primary sclerosing cholangitis. 4. STATUS POST MULTIPLE ABDOMINAL OPERATIONS: 4.1. Proctocolectomy and Kock pouch continent ileostomy in 1978. 4.2. Total abdominal hysterectomy and bilateral salpingo-oophorectomy in 1983. 4.3. Appendectomy age 15. 4.4. Cholecystectomy in 1985. 4.5. Liver transplantation in 1999. 4.6. Laparotomy with revision of Kock pouch and repair of pouch cutaneous fistula in 2010. Status post exploratory laparotomy with lysis of the adhesions and continent pouch repair s/p Retracted ileostomy stoma per surgery repair zofran prn, compazine prn fu LFTs>>> stable now on TPN cellcept 750 BID prograft 3 gm per day monitor for lytes protonix and pepcid will fu labs tacrolimus levels prn The patient was seen and examined at bedside and all new and available data was reviewed in the patients chart. I agree with the above findings, impression and plan. (Patient seen earlier today. Signature stamp does not reflect patient encounter time.). - Max Dozier MD Subjective Gastrointestinal/Abdominal: Reports: abdominal pain Objective Last 24 Hour Vital Signs Date Time Temp Pulse Resp B/P (MAP) Pulse Ox O2 Delivery O2 Flow Rate FiO2 01/05/19 10:23 166/75 01/05/19 10:22 90 166/75 01/05/19 10:02 99 Nasal Cannula 1.0 24 01/05/19 09:25 96 172/77 01/05/19 07:00 90 20 154/76 (102) 98 01/05/19 06:00 98 20 160/76 (104) 100 01/05/19 06:00 95 20 160/76 (104) 98 01/05/19 05:00 98.4 95 20 157/65 (95) 98 01/05/19 04:00 98.4 95 20 149/83 (105) 98 01/05/19 03:00 92 21 150/76 (100) 100 01/05/19 02:00 94 21 148/64 (92) 99 01/05/19 01:00 95 20 150/67 (94) 100 01/05/19 00:14 171/70 01/05/19 00:00 98.6 99 20 162/82 (108) 100 01/04/19 23:00 92 20 172/76 (108) 100 01/04/19 22:00 90 20 164/63 (96) 100 01/04/19 21:30 87 20 156/64 (94) 100 01/04/19 21:00 88 20 160/71 (100) 100 01/04/19 21:00 Room Air 01/04/19 20:30 87 19 149/69 (95) 100 01/04/19 20:00 98.7 89 20 165/98 (120) 99 01/04/19 18:00 82 20 169/73 (105) 99 01/04/19 17:54 167/71 01/04/19 17:00 85 21 169/71 (103) 99 01/04/19 16:03 98.5 01/04/19 16:00 99.0 86 25 166/71 (102) 97 01/04/19 15:30 85 20 170/68 (102) 100 01/04/19 15:15 86 22 169/68 (101) 99 01/04/19 15:00 98.5 86 21 175/72 (106) 100 01/04/19 14:45 98.1 84 22 174/68 (103) 100 01/04/19 13:52 84 16 100 Intake and Output 01/04/19 01/05/19 19:00 07:00 Intake Total 297 ml 1315 ml Output Total 2900 ml 2240 ml Balance -2603 ml -925 ml IV Total 297 ml 1315 ml Output Urine Total 2500 ml 1550 ml Other 400 ml 690 ml Laboratory Tests Test 01/04/19 16:10 01/05/19 03:40 White Blood Count 24.8 K/UL (4.8-10.8) #*H 15.6 K/UL (4.8-10.8) H Red Blood Count 3.40 M/UL (4.20-5.40) L 2.85 M/UL (4.20-5.40) L Hemoglobin 10.6 G/DL (12.0-16.0) L 9.2 G/DL (12.0-16.0) L Hematocrit 31.6 % (37.0-47.0) L 26.0 % (37.0-47.0) L Mean Corpuscular Volume 93 FL (80-99) 92 FL (80-99) Mean Corpuscular Hemoglobin 31.2 PG (27.0-31.0) H 32.2 PG (27.0-31.0) H Mean Corpuscular Hemoglobin Concent 33.5 G/DL (32.0-36.0) 35.2 G/DL (32.0-36.0) Red Cell Distribution Width 12.3 % (11.6-14.8) 12.5 % (11.6-14.8) Platelet Count 632 K/UL (150-450) H 511 K/UL (150-450) H Mean Platelet Volume 5.4 FL (6.5-10.1) L 5.7 FL (6.5-10.1) L Neutrophils (%) (Auto) % (45.0-75.0) % (45.0-75.0) Lymphocytes (%) (Auto) % (20.0-45.0) % (20.0-45.0) Monocytes (%) (Auto) % (1.0-10.0) % (1.0-10.0) Eosinophils (%) (Auto) % (0.0-3.0) % (0.0-3.0) Basophils (%) (Auto) % (0.0-2.0) % (0.0-2.0) Differential Total Cells Counted 100 100 Neutrophils % (Manual) 72 % (45-75) 86 % (45-75) H Lymphocytes % (Manual) 2 % (20-45) L 9 % (20-45) L Monocytes % (Manual) 0 % (1-10) L 0 % (1-10) L Eosinophils % (Manual) 0 % (0-3) 0 % (0-3) Basophils % (Manual) 0 % (0-2) 0 % (0-2) Myelocytes % 1 % (0-0) H Band Neutrophils 25 % (0-8) H 4 % (0-8) Platelet Estimate Increased H Increased H Platelet Morphology Normal Normal Red Blood Cell Morphology Normal Normal Sodium Level 137 MMOL/L (136-145) 137 MMOL/L (136-145) Potassium Level 4.8 MMOL/L (3.5-5.1) 4.5 MMOL/L (3.5-5.1) Chloride Level 104 MMOL/L (98-107) 107 MMOL/L (98-107) Carbon Dioxide Level 20 MMOL/L (21-32) L 21 MMOL/L (21-32) Anion Gap 14 mmol/L (5-15) 9 mmol/L (5-15) Blood Urea Nitrogen 24 mg/dL (7-18) H 27 mg/dL (7-18) H Creatinine 1.4 MG/DL (0.55-1.30) H 1.2 MG/DL (0.55-1.30) Estimat Glomerular Filtration Rate 37.5 mL/min (>60) 44.8 mL/min (>60) Glucose Level 268 MG/DL (74-106) #H 235 MG/DL (74-106) H Calcium Level 9.3 MG/DL (8.5-10.1) 9.3 MG/DL (8.5-10.1) Metamyelocytes % 1 % (0-0) H Phosphorus Level 2.4 MG/DL (2.5-4.9) L Total Bilirubin 0.5 MG/DL (0.2-1.0) Aspartate Amino Transf (AST/SGOT) 12 U/L (15-37) L Alanine Aminotransferase (ALT/SGPT) 22 U/L (12-78) Alkaline Phosphatase 148 U/L (46-116) H Total Protein 5.9 G/DL (6.4-8.2) L Albumin 2.6 G/DL (3.4-5.0) L Globulin 3.3 g/dL Albumin/Globulin Ratio 0.8 (1.0-2.7) L Height (Feet): 5 Height (Inches): 4.00 Weight (Pounds): 136 General Appearance: WD/WN, no apparent distress, alert Cardiovascular: normal rate Respiratory/Chest: normal breath sounds, no respiratory distress Abdominal Exam: normal bowel sounds, non tender, soft, other - ileostomy Extremities: normal range of motion, non-tender Jeyson Luna NP Jan 05, 2019 11:23
--- NOTE | 2019-01-05 12:00 | NUR ---
NURSE NOTES: Patient remains alert and oriented to time, place, person, and purpose. Patient continues to have breakthru pain. Fentanyl patch in place. Lidocaine patches in place. Patient continues to need fentanyl SQ every 2 hours. Will continue to monitor and administer pain medication as ordered. Patient remains on 2L NC at this time with no sign of SOB or acute respiratory distress. Patient remains NPO except meds and ice chips at this time. Illeostomy stoma bright red and intact with dressing intact. Small amount of brown/red drainage in drainage bag. Gastrostomy patent and draining green gastric content. Surgical dressing remains dry and intact. Dr Sotomayor changed the dressing at 0930. Pickett remains intact and draining pink/blood tinged urine with small occasional clots. Patient has left upper arm PICC line that is patent and running TPN at 74mLhr and D5 0.45% NS with 40mEq KCl at 50mL/hr. Patient bed in low position with bed alarm on and call light in reach. Blood pressure 177/97, HR 94, SpO2 99%, and RR 22. Will continue to monitor BP and administer PRN BP meds as needed. Will continue to monitor. Patient repositioned and oral care performed.
--- NOTE | 2019-01-05 12:14 | Critical Care Progress Note ---
Assessment/Plan Status: progressing Status Narrative S/P Exp Lap and ileostomy HTN- poorly controlled Post OP pain Anemia H/O liver transplant Assessment/Plan ICU monitor IV Fluids TPN Increase Fentanyl patch to 50 Mcg/3 days Clonidine 0.1 mg Q6 h PRN- may increase as needed Oral meds resumed - ? adequate absorption Jaya add Hydralazine IV PRN Monitor I/Os Monitor labs. I/S Discussed with Patint's and ICU Staff. Critical Care - Subjective Interval Events: On IV fluids and TPN C/O pain Urine less bloody WBC improving Condition: improving EKG Rhythm: Sinus Rhythm IV Fluids: TPN, D5 1/2 Ns Tube Feeding: GT to gravity I&O: Intake and Output 01/04/19 01/05/19 19:00 07:00 Intake Total 297 ml 1315 ml Output Total 2900 ml 2240 ml Balance -2603 ml -925 ml IV Total 297 ml 1315 ml Output Urine Total 2500 ml 1550 ml Other 400 ml 690 ml Critical Care - Objective Last 24 Hour Vital Signs Date Time Temp Pulse Resp B/P (MAP) Pulse Ox O2 Delivery O2 Flow Rate FiO2 01/05/19 11:56 175/76 01/05/19 11:00 92 21 174/73 (106) 99 01/05/19 10:23 166/75 01/05/19 10:22 90 166/75 01/05/19 10:02 99 Nasal Cannula 1.0 24 01/05/19 10:00 89 21 166/75 (105) 99 01/05/19 09:25 96 172/77 01/05/19 09:00 93 21 182/80 (114) 99 01/05/19 08:00 96 01/05/19 08:00 98.4 96 22 163/74 (103) 99 01/05/19 07:00 90 20 154/76 (102) 98 01/05/19 06:00 98 20 160/76 (104) 100 01/05/19 06:00 95 20 160/76 (104) 98 01/05/19 05:00 98.4 95 20 157/65 (95) 98 01/05/19 04:00 98.4 95 20 149/83 (105) 98 01/05/19 03:00 92 21 150/76 (100) 100 01/05/19 02:00 94 21 148/64 (92) 99 01/05/19 01:00 95 20 150/67 (94) 100 01/05/19 00:14 171/70 01/05/19 00:00 98.6 99 20 162/82 (108) 100 01/04/19 23:00 92 20 172/76 (108) 100 01/04/19 22:00 90 20 164/63 (96) 100 01/04/19 21:30 87 20 156/64 (94) 100 01/04/19 21:00 88 20 160/71 (100) 100 01/04/19 21:00 Room Air 01/04/19 20:30 87 19 149/69 (95) 100 01/04/19 20:00 98.7 89 20 165/98 (120) 99 01/04/19 18:00 82 20 169/73 (105) 99 01/04/19 17:54 167/71 01/04/19 17:00 85 21 169/71 (103) 99 01/04/19 16:03 98.5 01/04/19 16:00 99.0 86 25 166/71 (102) 97 01/04/19 15:30 85 20 170/68 (102) 100 01/04/19 15:15 86 22 169/68 (101) 99 01/04/19 15:00 98.5 86 21 175/72 (106) 100 01/04/19 14:45 98.1 84 22 174/68 (103) 100 01/04/19 13:52 84 16 100 Labs: Reviewed Condition: improving Heart: normal rate, regular rhythm, no gallop/murmur Abdomen: soft, distended, absent bowel sounds Extremities: no C/C/E Micro: Microbiology Date/Time Source Procedure Growth Status 01/03/19 16:55 Blood Blood Culture - Preliminary NO GROWTH AFTER 24 HOURS Resulted 01/03/19 16:50 Blood Blood Culture - Preliminary NO GROWTH AFTER 24 HOURS Resulted Accucheck: 213 Micha Ziegler MD Jan 05, 2019 12:14
--- NOTE | 2019-01-05 12:38 | Infectious Diseases Prog Note ---
Assessment/Plan Assessment/Plan ASSESSMENT AND PLAN: 1. leukocytosis, fevers, ? sepsis, possible intra-abdominal infection/early sbo , s/p exploratory laparotomy and small bowel segmental resection, fungemia risk with hx of tpn and abx, + picc line - zosyn and micafungin - post-operative leukocytosis noted, better today - monitor labs, wbc, platelets, blood cultures negative, ua le negative - icu care - operative notes reviewed - d/w RN - d/w patient 2. 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 3. Liver transplantation. 4. Sclerosing cholangitis. 5. Ulcerative colitis. 6. The patient is anemic. 7. History of cholecystectomy, appendectomy, hysterectomy, and proctocolectomy. 8. History of multiple abdominal operations. 9. Allergies to codeine, hydromorphone, metoclopramide, morphine, and sulfa. 10. Family doctor is Noncontributory. 11. Social history is negative. 12. MAR was noted. 13. Case discussed with RN. 14. Case discussed with the patient. 15. Continue treatment per Dr. Sotomayor and consultants. Subjective Constitutional: Denies: fever, other - sp surgery, + back pain HEENT: Denies: congestion Respiratory: Denies: shortness of breath Cardiovascular: Reports: other - no pressors ; Denies: chest pain Gastrointestinal/Abdominal: Denies: nausea, vomiting, diarrhea Genitourinary: Reports: other - + morales Neurologic: Denies: headache Psychiatric: Denies: depression Skin: Denies: rash Hematologic: Denies: bleeding Musculoskeletal: Reports: pain - + back pain Allergies: Coded Allergies: CODEINE (Verified Allergy, Severe, 12/17/18) Face contractions HYDROMORPHONE (Verified Allergy, Severe, Itching, 12/17/18) Itching whole body METOCLOPRAMIDE (Verified Allergy, Severe, 12/17/18) Face contractions MORPHINE (Verified Allergy, Severe, Shortness of Breath, 12/17/18) SULFA (SULFONAMIDE ANTIBIOTICS) (Verified Allergy, Severe, 12/17/18) Face contractions Objective Vital Signs Last 24 Hour Vital Signs Date Time Temp Pulse Resp B/P (MAP) Pulse Ox O2 Delivery O2 Flow Rate FiO2 01/05/19 11:56 175/76 01/05/19 11:00 92 21 174/73 (106) 99 01/05/19 10:23 166/75 01/05/19 10:22 90 166/75 01/05/19 10:02 99 Nasal Cannula 1.0 24 01/05/19 10:00 89 21 166/75 (105) 99 01/05/19 09:25 96 172/77 01/05/19 09:00 93 21 182/80 (114) 99 01/05/19 08:00 96 01/05/19 08:00 98.4 96 22 163/74 (103) 99 01/05/19 07:00 90 20 154/76 (102) 98 01/05/19 06:00 98 20 160/76 (104) 100 01/05/19 06:00 95 20 160/76 (104) 98 01/05/19 05:00 98.4 95 20 157/65 (95) 98 01/05/19 04:00 98.4 95 20 149/83 (105) 98 01/05/19 03:00 92 21 150/76 (100) 100 01/05/19 02:00 94 21 148/64 (92) 99 01/05/19 01:00 95 20 150/67 (94) 100 01/05/19 00:14 171/70 01/05/19 00:00 98.6 99 20 162/82 (108) 100 01/04/19 23:00 92 20 172/76 (108) 100 01/04/19 22:00 90 20 164/63 (96) 100 01/04/19 21:30 87 20 156/64 (94) 100 01/04/19 21:00 88 20 160/71 (100) 100 01/04/19 21:00 Room Air 01/04/19 20:30 87 19 149/69 (95) 100 01/04/19 20:00 98.7 89 20 165/98 (120) 99 01/04/19 18:00 82 20 169/73 (105) 99 01/04/19 17:54 167/71 01/04/19 17:00 85 21 169/71 (103) 99 01/04/19 16:03 98.5 01/04/19 16:00 99.0 86 25 166/71 (102) 97 9/15/19 15:30 85 20 170/68 (102) 100 01/04/19 15:15 86 22 169/68 (101) 99 01/04/19 15:00 98.5 86 21 175/72 (106) 100 01/04/19 14:45 98.1 84 22 174/68 (103) 100 01/04/19 13:52 84 16 100 Height (Feet): 5 Height (Inches): 4.00 Weight (Pounds): 136 General Appearance: no acute distress HEENT: normocephalic, atraumatic, anicteric, mucous membranes moist Respiratory/Chest: lungs clear, normal breath sounds, no respiratory distress, no accessory muscle use Cardiovascular: normal rate, regular rhythm, no gallop/murmur, no JVD Abdomen: normal bowel sounds, soft, non tender, no organomegaly, non distended Genitourinary: other - + morales - urine clear Extremities: no cyanosis Skin: no rash 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 Good bowel and bag opacification with no evidence of bowel obstruction. Unusual, markedly distended unopacified loop of bowel in the pelvis. Although unopacified, this does not appear to be an abscess as there is a wall and other characteristics more in keeping with bowel. Would consider a large diverticulum or possibly remnant of the previous Kock pouch or part of the small bowel leading to the old pouch as those segments are sometimes quite distended. Status post liver transplant. Status post cholecystectomy. Mild basal atelectasis. Chest x-ray - no pna, report noted CT abdomen/pelvis - 12/30/18 - Impression: Postsurgical changes, as described Unusual tubular structure filled mostly with gas but also some fluid communicating with the small bowel at the site of a right lower quadrant enteroenterostomy. Uncertain as to whether this represents an unusual large diverticulum, a true extraluminal gas collection, or a portion of an old continent ileostomy pouch. This is also previously described Dilated proximal small bowel proximal to the enteroenterostomy with slow forward propulsion of contents. Partial small bowel obstruction not completely excludable although unlikely given evidence of forward propulsion of contrast and filling of the ileostomy on prior 12/26/2018 exam; findings most likely functional in nature. Correlate with clinical findings Small anterior pelvic and deep pelvic fluid pockets, most likely represent retained postoperative fluid collections. Abscess as etiology of any of these not completely excludable; correlation with clinical findings recommended Postsurgical changes of the liver status post transplantation Punctate nonobstructing bilateral intrarenal calculi Bilateral basilar pulmonary parenchymal atelectasis and/or scarring Images previously reviewed in person with Dr. Sotomayor Microbiology Date/Time Source Procedure Growth Status 01/03/19 16:55 Blood Blood Culture - Preliminary NO GROWTH AFTER 24 HOURS Resulted 01/03/19 16:50 Blood Blood Culture - Preliminary NO GROWTH AFTER 24 HOURS Resulted Laboratory Tests Test 01/04/19 16:10 01/05/19 03:40 White Blood Count 24.8 K/UL (4.8-10.8) #*H 15.6 K/UL (4.8-10.8) H Red Blood Count 3.40 M/UL (4.20-5.40) L 2.85 M/UL (4.20-5.40) L Hemoglobin 10.6 G/DL (12.0-16.0) L 9.2 G/DL (12.0-16.0) L Hematocrit 31.6 % (37.0-47.0) L 26.0 % (37.0-47.0) L Mean Corpuscular Volume 93 FL (80-99) 92 FL (80-99) Mean Corpuscular Hemoglobin 31.2 PG (27.0-31.0) H 32.2 PG (27.0-31.0) H Mean Corpuscular Hemoglobin Concent 33.5 G/DL (32.0-36.0) 35.2 G/DL (32.0-36.0) Red Cell Distribution Width 12.3 % (11.6-14.8) 12.5 % (11.6-14.8) Platelet Count 632 K/UL (150-450) H 511 K/UL (150-450) H Mean Platelet Volume 5.4 FL (6.5-10.1) L 5.7 FL (6.5-10.1) L Neutrophils (%) (Auto) % (45.0-75.0) % (45.0-75.0) Lymphocytes (%) (Auto) % (20.0-45.0) % (20.0-45.0) Monocytes (%) (Auto) % (1.0-10.0) % (1.0-10.0) Eosinophils (%) (Auto) % (0.0-3.0) % (0.0-3.0) Basophils (%) (Auto) % (0.0-2.0) % (0.0-2.0) Differential Total Cells Counted 100 100 Neutrophils % (Manual) 72 % (45-75) 86 % (45-75) H Lymphocytes % (Manual) 2 % (20-45) L 9 % (20-45) L Monocytes % (Manual) 0 % (1-10) L 0 % (1-10) L Eosinophils % (Manual) 0 % (0-3) 0 % (0-3) Basophils % (Manual) 0 % (0-2) 0 % (0-2) Myelocytes % 1 % (0-0) H Band Neutrophils 25 % (0-8) H 4 % (0-8) Platelet Estimate Increased H Increased H Platelet Morphology Normal Normal Red Blood Cell Morphology Normal Normal Sodium Level 137 MMOL/L (136-145) 137 MMOL/L (136-145) Potassium Level 4.8 MMOL/L (3.5-5.1) 4.5 MMOL/L (3.5-5.1) Chloride Level 104 MMOL/L (98-107) 107 MMOL/L (98-107) Carbon Dioxide Level 20 MMOL/L (21-32) L 21 MMOL/L (21-32) Anion Gap 14 mmol/L (5-15) 9 mmol/L (5-15) Blood Urea Nitrogen 24 mg/dL (7-18) H 27 mg/dL (7-18) H Creatinine 1.4 MG/DL (0.55-1.30) H 1.2 MG/DL (0.55-1.30) Estimat Glomerular Filtration Rate 37.5 mL/min (>60) 44.8 mL/min (>60) Glucose Level 268 MG/DL (74-106) #H 235 MG/DL (74-106) H Calcium Level 9.3 MG/DL (8.5-10.1) 9.3 MG/DL (8.5-10.1) Metamyelocytes % 1 % (0-0) H Phosphorus Level 2.4 MG/DL (2.5-4.9) L Total Bilirubin 0.5 MG/DL (0.2-1.0) Aspartate Amino Transf (AST/SGOT) 12 U/L (15-37) L Alanine Aminotransferase (ALT/SGPT) 22 U/L (12-78) Alkaline Phosphatase 148 U/L (46-116) H Total Protein 5.9 G/DL (6.4-8.2) L Albumin 2.6 G/DL (3.4-5.0) L Globulin 3.3 g/dL Albumin/Globulin Ratio 0.8 (1.0-2.7) L Current Medications Medications (Trade) Dose Ordered Sig/Kajal Route PRN Reason Start Time Stop Time Status Last Admin Dose Admin Acetaminophen (Tylenol) 650 mg Q4H PRN ORAL Mild Pain/Temp > 100.2 01/04/19 21:00 01/25/19 20:59 Acetaminophen (Tylenol) 650 mg Q6H PRN ORAL headache 01/04/19 20:45 01/16/19 14:44 Al Hydroxide/Mg Hydroxide (Mylanta) 30 ml Q6H PRN ORAL dyspepsia 01/04/19 21:30 01/27/19 09:29 Amlodipine Besylate (Norvasc) 5 mg BID ORAL 01/05/19 09:00 02/02/19 08:59 01/05/19 10:22 Chlorhexidine Gluconate (Yulia-Hex 2%) 1 applic DAILY@2000 TOPIC 01/04/19 20:00 01/16/19 19:59 01/04/19 20:27 Clonidine HCl (Catapres Tab) 0.1 mg Q6H PRN SL SBP>150 mmHg 01/04/19 22:00 01/21/19 21:59 01/05/19 11:56 Dextrose 1,000 ml @ 0 mls/hr Q24H PRN IV PN interrupted or unavailable 01/04/19 20:00 01/19/19 19:59 Dextrose (Dextrose 50%) 25 ml Q30M PRN IV Hypoglycemia 01/04/19 19:15 01/21/19 12:44 Dextrose (Dextrose 50%) 50 ml Q30M PRN IV Hypoglycemia 01/04/19 19:15 01/21/19 12:44 Dextrose/ Electrolytes 1,000 ml @ 50 mls/hr Q20H IV 01/04/19 20:00 02/02/19 19:59 01/04/19 20:26 Diphenhydramine HCl (Benadryl) 50 mg Q4H PRN ORAL Itching 01/04/19 20:00 01/26/19 19:59 Famotidine (Pepcid I.v.) 20 mg Q12HR IVP 01/04/19 21:00 02/02/19 08:59 01/05/19 09:24 Fat Emulsion Intravenous 216 ml/Amino Acids/ Electrolytes/ Dextrose 1,776 ml @ 74 mls/hr Q24H IV 01/04/19 20:00 01/29/19 19:59 01/04/19 20:28 Fentanyl (Duragesic) 1 patch Q72H TDERMAL 01/05/19 09:00 01/12/19 08:59 01/05/19 09:21 Fentanyl Citrate (Sublimaze 100 mcg/2 mL) 12.5 mcg Q2H PRN IV Breakthrough Pain 01/04/19 21:45 01/11/19 19:59 01/05/19 10:44 Hydralazine HCl (Apresoline) 10 mg Q4H PRN IV For High Blood Pressure 01/05/19 12:19 02/04/19 12:18 Insulin Aspart (NovoLOG) Q6HR SUBQ 01/05/19 00:00 01/21/19 17:59 01/05/19 12:28 Levothyroxine Sodium (Synthroid) 100 mcg DAILY IV 01/05/19 09:00 02/04/19 08:59 01/05/19 10:23 Lidocaine (Lidoderm 5% PATCH) 1 patch DAILY TDERMAL 01/04/19 19:00 02/03/19 18:29 01/05/19 09:25 Lidocaine (Lidoderm 5% PATCH) 1 patch DAILY TDERMAL 01/04/19 19:00 02/03/19 18:29 01/05/19 09:26 Lisinopril (Prinivil) 40 mg DAILY ORAL 01/05/19 09:00 01/30/19 08:59 01/05/19 10:23 Metoprolol Succinate (Toprol XL) 25 mg DAILY ORAL 01/05/19 09:00 01/23/19 08:59 01/05/19 09:25 Micafungin Sodium 100 mg/Sodium Chloride 110 ml @ 110 mls/hr Q24H IVPB 01/04/19 20:00 01/10/19 19:59 01/04/19 20:26 Miscellaneous Medication (fentaNYL Destruction) 1 ea Q72H MISC 01/05/19 08:59 02/04/19 08:58 01/05/19 09:24 Mycophenolate Mofetil (Cellcept) 750 mg Q12HR ORAL 01/04/19 21:00 01/24/19 08:59 01/05/19 09:24 Naloxone HCl (Narcan) 0.1 mg PRN IV Sedation scale 3 or 4 01/04/19 19:00 02/03/19 13:44 Ondansetron HCl (Zofran) 4 mg Q6H PRN IVP Nausea & Vomiting 01/04/19 19:15 01/20/19 07:14 01/05/19 10:36 Pantoprazole (Protonix) 40 mg DAILY IVP 01/05/19 09:00 01/25/19 08:59 01/05/19 09:25 Piperacillin Sod/ Tazobactam Sod 3.375 gm/Dextrose 100 ml @ 25 mls/hr EVERY 8 HOURS IVPB 01/04/19 22:00 01/08/19 13:59 01/05/19 06:02 Prochlorperazine (Compazine) 10 mg Q6H PRN IVP Nausea & Vomiting 01/04/19 20:00 01/19/19 19:59 01/05/19 00:11 Tacrolimus (Prograf) 1 mg DAILY ORAL 01/05/19 09:00 02/04/19 08:59 01/05/19 09:24 Tacrolimus (Prograf) 2 mg BEDTIME ORAL 01/04/19 21:00 01/16/19 20:59 01/04/19 21:26 Trazodone HCl (Desyrel) 25 mg HSPRN PRN ORAL INSOMNIA 01/04/19 20:00 02/03/19 19:59 01/05/19 03:02 Philly Shelby MD Jan 05, 2019 12:38
--- NOTE | 2019-01-05 14:00 | NUR ---
NURSE NOTES: Patient sleeping at this time. Patient continues to have break-thru pain requiring SQ fentanyl. MD aware. Will continue to monitor and administer medication as needed. Blood pressure 138/70 at this time. Will continue to monitor.
--- NOTE | 2019-01-05 14:58 | NUR ---
RD ASSESSMENT & RECOMMENDATIONS SEE CARE ACTIVITY FOR COMPLETE ASSESSMENT DAILY ESTIMATED NEEDS: Needs based on Surgery 61kg 25-30 kcals/kg 3605-5571 total kcals 1-2 g protein/kg 61-122 g total protein 25-30 mL/kg 6532-3397 total fluid mLs NUTRITION DIAGNOSIS: Altered GI fxn r/t h/o UC and malfunctioning kock pouch as evidenced by pt is s/p kock pouch takedown w/ creation of Yajaira ileo, now s/p ex lap, segmental small bowel resections and relocation of ileostomy, back to NPO, remains on TPN. CURRENT DIET:NPO, on TPN PO DIET RECOMMENDATIONS: Diet per MD PARENTERAL NUTRITION RECOMMENDATIONS: D/AA Rate: 65 IL Rate: 9 Total Rate: 74 Volume: 1776 % Dextrose: 18 % AA: 5.5 Energy (kcals/kg): 1730 Protein (g/kg protein): 86 Nonprotein KCALS: 1386 GIR (mg CHO/kg/min): 3.2 % Fat KCALS: 25 NCP: N Ratio: 101:1 TPN Comment: - Maintain current TPN: D18% + AA 5.5% @65ml/hr + 20% IL @9ml/hr - TPN at goal meets 100% est kcal/prot needs (28 kcal/kg and 1.4g prot/kg) ADDITIONAL RECOMMENDATIONS: 1) Obtain a standing weight as pt is able to ambulate in halls 2) Monitor lytes, BG , LFTs daily w/ TPN Replete lytes as needed 3) Consider DC D5 IVF for improved BG control 4) Diet per MD .
--- NOTE | 2019-01-05 16:00 | NUR ---
NURSE NOTES: Patient remains alert and oriented to time, place, person, and purpose. Patient continues to have breakthru pain. Fentanyl patch in place. Lidocaine patches in place. Patient continues to need fentanyl SQ every 2 hours. Will continue to monitor and administer pain medication as ordered. Patient remains on 2L NC at this time with no sign of SOB or acute respiratory distress. Patient remains NPO except meds and ice chips at this time. Illeostomy stoma bright red and intact with dressing intact. Small amount of brown/red drainage in drainage bag. Gastrostomy patent and draining green gastric content. Surgical dressing remains dry and intact. [place] remains intact and draining pink/blood tinged urine with small occasional clots. Patient has left upper arm PICC line that is patent and running TPN at 74mLhr and D5 0.45% NS with 40mEq KCl at 50mL/hr. Patient bed in low position with bed alarm on and call light in reach. Blood pressure 143/74, HR 100, SpO2 99%, temp 99.4, and RR 21. [place] removed. Will continue to monitor BP and temp and administer meds as needed. Will continue to monitor. Patient repositioned and oral care performed.
[2019-01-05] MEDS: D5 1/2NS w/KCl 40meq 1000ml 1,000 ML IV SCH (16:25)
--- NOTE | 2019-01-05 18:00 | NUR ---
NURSE NOTES: Patient cleaned up at this time. Patient repositioned and oral care performed. Patient continues to have pain and requires break thru pain medication every 2 hours. Will continue to monitor. Patient complaining of nausea at this time. Patient given Zofran and did not vomit at this time. Will continue to monitor.
--- NOTE | 2019-01-05 19:30 | NUR ---
HAND-OFF: Report given to Genaro RN. Patient pain is 7/10 at this time. Endorsed to follow up.
--- NOTE | 2019-01-05 19:31 | NUR ---
NURSE NOTES: Received bedside report from PATRICK Geller.Patient stable,sleepy,A&O x4 SR on residential monitor,tolerated well N/C @2L/min,pt status postop,NPO exept meds and ice chips,BS active on all quadrants,R side ileostomy and L side gastrostomy draining toward gravity,IV asymptomatic,intact on R IJ and PICC line on MARILY running with D 5 1/2 NS@ 50ml/hrs,bed secured in a low safety position,call light within a reach,will continue to monitor and follow POC.
[2019-01-05] MEDS: Dyna-Hex 2% Top Sol 2oz TOPIC SCH (20:13)
[2019-01-05] MEDS: Micafungin 100 MG in NS 110 ML IVPB SCH (20:14)
[2019-01-05] MEDS: Fat Emulsion Iv 20% 216 ML in Tpn 1,560 ML IV SCH (20:15)
--- NOTE | 2019-01-05 21:00 | NUR ---
NURSE NOTES: Received a call from Dr. Ziegler. Updated him of patient's current status. No new order received at this time.
--- NOTE | 2019-01-05 22:33 | NUR ---
NURSE NOTES: Pt turned and repositioned,pt request ice chips.
[2019-01-06] VITALS (24 sets, daily range): BP systolic 90–161; BP diastolic 60–88
--- NOTE | 2019-01-06 00:59 | NUR ---
NURSE NOTES: Flushed pt's L site ileostomy with 20 ml NS.pt reposition,clean and dry
[2019-01-06] MEDS: fentaNYL 100 mcg/2 mL IV PRN ×2 (02:38→23:00)
--- NOTE | 2019-01-06 03:00 | NUR ---
NURSE NOTES: Pt c/o pain and nausea, adm fentanyl SQ 0.25 ml and Zofran 2ml IVP and flushed with NS IV port.Pt stable,refused change linens and take a bed bath. Will continue to monitor.
[2019-01-06 04:52] LABS: HEMATOCRIT 25.8 % (37.0-47.0); HEMOGLOBIN 8.8 G/DL (12.0-16.0); MEAN CORPUSCULAR VOLUME 94 FL (80-99); PLATELET COUNT 452 K/UL (150-450); RED BLOOD COUNT 2.74 M/UL (4.20-5.40); RED CELL DISTRIBUTION WIDTH 12.8 % (11.6-14.8); WHITE BLOOD COUNT 21.7 K/UL (4.8-10.8)
[2019-01-06 05:20] LABS: ALANINE AMINOTRANSFERASE 21 U/L (12-78); ALBUMIN 2.3 G/DL (3.4-5.0); ALBUMIN/GLOBULIN RATIO 0.6 (1.0-2.7); ALKALINE PHOSPHATASE 140 U/L (46-116); ANION GAP 10 mmol/L (5-15); ASPARTATE AMINO TRANSFERASE 11 U/L (15-37); BILIRUBIN,TOTAL 0.5 MG/DL (0.2-1.0); BLOOD UREA NITROGEN 26 mg/dL (7-18); CALCIUM 9.9 MG/DL (8.5-10.1); CARBON DIOXIDE 22 MMOL/L (21-32); CHLORIDE 105 MMOL/L (98-107); CREATININE 1.1 MG/DL (0.55-1.30); PHOSPHORUS 2.5 MG/DL (2.5-4.9); POTASSIUM 4.3 MMOL/L (3.5-5.1); SODIUM 137 MMOL/L (136-145)
[2019-01-06] MEDS: NovoLOG Insulin Flexpen SUBQ SCH ×3 (06:07→18:16)
--- NOTE | 2019-01-06 07:28 | NUR ---
HAND-OFF: Report given to PATRICK Dorantes and PATRICK Bunch.Patient stable.
--- NOTE | 2019-01-06 07:30 | NUR ---
NURSE NOTES: Received bedside report from EwelinaRN and Kori RN. Patient stable, appears drowsy, A&O x4. SR on case monitor, N/C @2L/min. Pt is NPO except meds and ice chips. Rt ileostomy and Lt gastrostomy draining to gravity. R IJ TLC intact and asymptomatic. PICC line on MARILY running with D 5 1/2 NS 40mEq KCL @ 50ml/hrs and TPN @ 74mL/hr. Bed kept in low position, call light within reach. Pt requested and was given ice chips. Will resume plan of care and continue to monitor.
--- NOTE | 2019-01-06 08:00 | NUR ---
NURSE NOTES: Pt c/o nausea, Compazine 10MG IV given. Pt reports better relief with Compazine, than previous given dose of Zofran. Will continue to monitor.
--- NOTE | 2019-01-06 08:50 | General Progress Note ---
Assessment/Plan Status: progressing Assessment/Plan: zofran prn, compazine prn fu LFTs>>> stable now on TPN cellcept 750 BID prograft 3 gm per day monitor for Lyte protonix will fu labs ICU care fu surg recs Subjective ROS Limited/Unobtainable: No Allergies: Coded Allergies: CODEINE (Verified Allergy, Severe, 12/17/18) Face contractions HYDROMORPHONE (Verified Allergy, Severe, Itching, 12/17/18) Itching whole body METOCLOPRAMIDE (Verified Allergy, Severe, 12/17/18) Face contractions MORPHINE (Verified Allergy, Severe, Shortness of Breath, 12/17/18) SULFA (SULFONAMIDE ANTIBIOTICS) (Verified Allergy, Severe, 12/17/18) Face contractions Subjective abd pain sleeping Objective Last 24 Hour Vital Signs Date Time Temp Pulse Resp B/P (MAP) Pulse Ox O2 Delivery O2 Flow Rate FiO2 01/06/19 08:00 98.8 98 14 149/71 (97) 99 01/06/19 08:00 Nasal Cannula 2.0 01/06/19 07:35 95 01/06/19 07:00 101 16 161/82 (108) 98 01/06/19 06:00 94 16 158/72 (100) 99 01/06/19 05:00 92 15 90/69 (76) 100 01/06/19 04:00 108 23 144/86 (105) 96 01/06/19 04:00 Nasal Cannula 2.0 01/06/19 03:00 94 20 141/83 (102) 100 01/06/19 03:00 94 01/06/19 02:00 95 19 149/81 (103) 100 01/06/19 01:00 97 17 149/63 (91) 99 01/06/19 00:00 Nasal Cannula 2.0 01/06/19 00:00 97 23 136/88 (104) 100 01/05/19 23:34 93 01/05/19 23:00 94 16 147/62 (90) 100 01/05/19 22:00 95 20 149/71 (97) 100 01/05/19 21:00 Nasal Cannula 2.0 01/05/19 21:00 94 18 152/78 (102) 100 01/05/19 20:00 97 20 86/61 (69) 99 01/05/19 19:12 99 01/05/19 19:03 98 Nasal Cannula 1.0 24 01/05/19 19:00 102 20 154/61 (92) 99 01/05/19 18:00 100 21 154/70 (98) 99 01/05/19 17:45 99 154/70 01/05/19 17:00 105 20 158/70 (99) 99 01/05/19 16:00 99.4 101 20 144/87 (106) 99 01/05/19 15:00 100 21 143/74 (97) 99 01/05/19 14:00 98 20 138/70 (92) 99 01/05/19 13:00 97.4 92 21 142/67 (92) 99 01/05/19 12:51 177/97 01/05/19 12:00 Room Air 01/05/19 12:00 96 21 177/97 (123) 99 01/05/19 12:00 96 01/05/19 11:56 175/76 01/05/19 11:00 92 21 174/73 (106) 99 01/05/19 10:23 166/75 01/05/19 10:22 90 166/75 01/05/19 10:02 99 Nasal Cannula 1.0 24 01/05/19 10:00 89 21 166/75 (105) 99 01/05/19 09:25 96 172/77 01/05/19 09:00 Room Air 01/05/19 09:00 93 21 182/80 (114) 99 Intake and Output 01/05/19 01/06/19 19:00 07:00 Intake Total 1813 ml 1730.4 ml Output Total 2155 ml 1755 ml Balance -342 ml -24.6 ml Intake Oral 90 ml 340 ml IV Total 1663 ml 1330.4 ml Other 60 ml 60 ml Output Urine Total 1405 ml 755 ml Other 750 ml 1000 ml Laboratory Tests 01/06/19 04:20: White Blood Count 21.7H, Red Blood Count 2.74L, Hemoglobin 8.8L, Hematocrit 25.8L, Mean Corpuscular Volume 94, Mean Corpuscular Hemoglobin 32.1H, Mean Corpuscular Hemoglobin Concent 34.1, Red Cell Distribution Width 12.8, Platelet Count 452H, Mean Platelet Volume 5.7L, Neutrophils (%) (Auto) , Lymphocytes (%) (Auto) , Monocytes (%) (Auto) , Eosinophils (%) (Auto) , Basophils (%) (Auto) , Neutrophils % (Manual) [Pending], Lymphocytes % (Manual) [Pending], Platelet Estimate [Pending], Platelet Morphology [Pending], Sodium Level 137, Potassium Level 4.3, Chloride Level 105, Carbon Dioxide Level 22, Anion Gap 10, Blood Urea Nitrogen 26H, Creatinine 1.1, Estimat Glomerular Filtration Rate 49.6, Glucose Level 193H, Calcium Level 9.9, Phosphorus Level 2.5, Magnesium Level 1.4L, Total Bilirubin 0.5, Aspartate Amino Transf (AST/SGOT) 11L, Alanine Aminotransferase (ALT/SGPT) 21, Alkaline Phosphatase 140H, Total Protein 6.4, Albumin 2.3L, Globulin 4.1, Albumin/Globulin Ratio 0.6L Height (Feet): 5 Height (Inches): 4.00 Weight (Pounds): 136 General Appearance: lethargic EENT: normal ENT inspection Neck: supple Cardiovascular: normal rate Respiratory/Chest: decreased breath sounds Pelvis: no masses - and ileostomy bag in place, other Extremities: non-tender Max Dozier MD Jan 06, 2019 08:50
[2019-01-06] MEDS: Pantoprazole Inj IVP SCH (09:14)
[2019-01-06] MEDS: Metoprolol Succinate XL 25mg tab ORAL SCH (09:15)
[2019-01-06] MEDS: Lisinopril 20mg tab ORAL SCH (09:15)
[2019-01-06] MEDS: Mycophenolate 250mg cap ORAL SCH ×2 (09:16→21:21)
[2019-01-06] MEDS: D5 1/2NS w/KCl 40meq 1000ml 1,000 ML IV SCH (09:45)
--- NOTE | 2019-01-06 10:00 | NUR ---
NURSE NOTES: PT at bedside with Physical Therapist. Applied binder to abdomen prior to standing. Drainage from incision noted upon standing, dressing reinforced. Pt tolerated activity well and remains stable.
--- NOTE | 2019-01-06 11:23 | NUR ---
CASE MANAGEMENT:REVIEW 01/06/ SI: POD #19 AND POD#2 S/P RESECTION,ENTEROENTEROSTOMY AND CREATION OF SUKHI ILEOSTOMY TO SURGERY~SMALL BOWEL RESECTION AND RELOCATION OF ILEOSTOMY TO RLQ 98.8 98 14 149/71 99% ON 2L/NC WBC+21.7 H/H-8.8/25.8 MAG-1.4 IS: TPN/IL @ 74/HR IV MICAFUNGIN Q24 IV ZOSYN Q8HRS IVF@50/HR IV FENTANYL Q2HRS PRN CELLCEPT PO Q12 PROGRAF PO QHS LIDOCAINE PATCH NORVASC PO BID IV SYNTHROID QD LISINOPRIL PO QD TOPROL PO QD : ICU STATUS
--- NOTE | 2019-01-06 12:00 | NUR ---
NURSE NOTES: Patient's gown changed, hair brushed, and repositioned. P200 mattress put on bed. Pt states pain is there but tolerable.
--- NOTE | 2019-01-06 12:14 | Infectious Diseases Prog Note ---
Assessment/Plan Assessment/Plan ASSESSMENT AND PLAN: 1. leukocytosis, fevers, ? sepsis, possible intra-abdominal infection/early sbo , s/p exploratory laparotomy and small bowel segmental resection, fungemia risk with hx of tpn and abx, + picc line - leukocytosis worse - change abx to vancomycin, meropenem and micafungin - surveillance cultures - consider change lines - f/u on blood cultures - monitor labs - icu care - operative notes reviewed - d/w RN - d/w patient 2. 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 3. Liver transplantation. 4. Sclerosing cholangitis. 5. Ulcerative colitis. 6. The patient is anemic. 7. History of cholecystectomy, appendectomy, hysterectomy, and proctocolectomy. 8. History of multiple abdominal operations. 9. Allergies to codeine, hydromorphone, metoclopramide, morphine, and sulfa. 10. Family doctor is Noncontributory. 11. Social history is negative. 12. MAR was noted. 13. Case discussed with RN. 14. Case discussed with the patient. 15. Continue treatment per Dr. Sotomayor and consultants. Subjective Constitutional: Denies: fever HEENT: Denies: congestion Respiratory: Denies: shortness of breath Cardiovascular: Denies: chest pain Gastrointestinal/Abdominal: Reports: other - abdominal pain controlled ; Denies : nausea, vomiting Genitourinary: Reports: other - + morales Neurologic: Denies: headache Psychiatric: Denies: depression Skin: Denies: rash Hematologic: Denies: bleeding Musculoskeletal: Reports: pain - controlled Allergies: Coded Allergies: CODEINE (Verified Allergy, Severe, 12/17/18) Face contractions HYDROMORPHONE (Verified Allergy, Severe, Itching, 12/17/18) Itching whole body METOCLOPRAMIDE (Verified Allergy, Severe, 12/17/18) Face contractions MORPHINE (Verified Allergy, Severe, Shortness of Breath, 12/17/18) SULFA (SULFONAMIDE ANTIBIOTICS) (Verified Allergy, Severe, 12/17/18) Face contractions Objective Vital Signs Last 24 Hour Vital Signs Date Time Temp Pulse Resp B/P (MAP) Pulse Ox O2 Delivery O2 Flow Rate FiO2 01/06/19 11:00 90 14 158/63 (94) 100 01/06/19 10:00 97 18 161/72 (101) 97 01/06/19 09:15 96 154/70 01/06/19 09:15 154/70 01/06/19 09:15 96 154/70 01/06/19 09:00 100 18 154/70 (98) 98 01/06/19 08:00 98.8 98 14 149/71 (97) 99 01/06/19 08:00 Nasal Cannula 2.0 01/06/19 07:35 95 01/06/19 07:00 101 16 161/82 (108) 98 01/06/19 06:00 94 16 158/72 (100) 99 01/06/19 05:00 92 15 90/69 (76) 100 01/06/19 04:00 108 23 144/86 (105) 96 01/06/19 04:00 Nasal Cannula 2.0 01/06/19 03:00 94 20 141/83 (102) 100 01/06/19 03:00 94 01/06/19 02:00 95 19 149/81 (103) 100 01/06/19 01:00 97 17 149/63 (91) 99 01/06/19 00:00 Nasal Cannula 2.0 01/06/19 00:00 97 23 136/88 (104) 100 01/05/19 23:34 93 01/05/19 23:00 94 16 147/62 (90) 100 01/05/19 22:00 95 20 149/71 (97) 100 01/05/19 21:00 Nasal Cannula 2.0 01/05/19 21:00 94 18 152/78 (102) 100 01/05/19 20:00 97 20 86/61 (69) 99 01/05/19 19:12 99 01/05/19 19:03 98 Nasal Cannula 1.0 24 01/05/19 19:00 102 20 154/61 (92) 99 01/05/19 18:00 100 21 154/70 (98) 99 01/05/19 17:45 99 154/70 01/05/19 17:00 105 20 158/70 (99) 99 01/05/19 16:00 99.4 101 20 144/87 (106) 99 01/05/19 15:00 100 21 143/74 (97) 99 01/05/19 14:00 98 20 138/70 (92) 99 01/05/19 13:00 97.4 92 21 142/67 (92) 99 01/05/19 12:51 177/97 Height (Feet): 5 Height (Inches): 4.00 Weight (Pounds): 140 General Appearance: no acute distress HEENT: normocephalic, atraumatic, anicteric, mucous membranes moist Respiratory/Chest: lungs clear, normal breath sounds, no respiratory distress, no accessory muscle use Cardiovascular: normal rate, regular rhythm, no gallop/murmur Abdomen: normal bowel sounds, soft, non tender, no organomegaly, non distended Genitourinary: other - + morales - urine clear Extremities: no cyanosis Skin: no rash 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 Good bowel and bag opacification with no evidence of bowel obstruction. Unusual, markedly distended unopacified loop of bowel in the pelvis. Although unopacified, this does not appear to be an abscess as there is a wall and other characteristics more in keeping with bowel. Would consider a large diverticulum or possibly remnant of the previous Kock pouch or part of the small bowel leading to the old pouch as those segments are sometimes quite distended. Status post liver transplant. Status post cholecystectomy. Mild basal atelectasis. Chest x-ray - no pna, report noted CT abdomen/pelvis - 12/30/18 - Impression: Postsurgical changes, as described Unusual tubular structure filled mostly with gas but also some fluid communicating with the small bowel at the site of a right lower quadrant enteroenterostomy. Uncertain as to whether this represents an unusual large diverticulum, a true extraluminal gas collection, or a portion of an old continent ileostomy pouch. This is also previously described Dilated proximal small bowel proximal to the enteroenterostomy with slow forward propulsion of contents. Partial small bowel obstruction not completely excludable although unlikely given evidence of forward propulsion of contrast and filling of the ileostomy on prior 12/26/2018 exam; findings most likely functional in nature. Correlate with clinical findings Small anterior pelvic and deep pelvic fluid pockets, most likely represent retained postoperative fluid collections. Abscess as etiology of any of these not completely excludable; correlation with clinical findings recommended Postsurgical changes of the liver status post transplantation Punctate nonobstructing bilateral intrarenal calculi Bilateral basilar pulmonary parenchymal atelectasis and/or scarring Images previously reviewed in person with Dr. Sotomayor Microbiology Date/Time Source Procedure Growth Status 01/03/19 16:55 Blood Blood Culture - Preliminary NO GROWTH AFTER 48 HOURS Resulted 12/27/18 10:15 Urine,Clean Catch Urine Culture - Final NO GROWTH AFTER 48 HOURS Complete Microbiology Date/Time Source Procedure Growth Status 01/03/19 16:55 Blood Blood Culture - Preliminary NO GROWTH AFTER 48 HOURS Resulted 01/03/19 16:50 Blood Blood Culture - Preliminary NO GROWTH AFTER 48 HOURS Resulted Laboratory Tests Test 01/06/19 04:20 White Blood Count 21.7 K/UL (4.8-10.8) H Red Blood Count 2.74 M/UL (4.20-5.40) L Hemoglobin 8.8 G/DL (12.0-16.0) L Hematocrit 25.8 % (37.0-47.0) L Mean Corpuscular Volume 94 FL (80-99) Mean Corpuscular Hemoglobin 32.1 PG (27.0-31.0) H Mean Corpuscular Hemoglobin Concent 34.1 G/DL (32.0-36.0) Red Cell Distribution Width 12.8 % (11.6-14.8) Platelet Count 452 K/UL (150-450) H Mean Platelet Volume 5.7 FL (6.5-10.1) L Neutrophils (%) (Auto) % (45.0-75.0) Lymphocytes (%) (Auto) % (20.0-45.0) Monocytes (%) (Auto) % (1.0-10.0) Eosinophils (%) (Auto) % (0.0-3.0) Basophils (%) (Auto) % (0.0-2.0) Differential Total Cells Counted 100 Neutrophils % (Manual) 87 % (45-75) H Lymphocytes % (Manual) 6 % (20-45) L Monocytes % (Manual) 5 % (1-10) Eosinophils % (Manual) 0 % (0-3) Basophils % (Manual) 0 % (0-2) Band Neutrophils 2 % (0-8) Platelet Estimate Adequate Platelet Morphology Normal Red Blood Cell Morphology Normal Sodium Level 137 MMOL/L (136-145) Potassium Level 4.3 MMOL/L (3.5-5.1) Chloride Level 105 MMOL/L (98-107) Carbon Dioxide Level 22 MMOL/L (21-32) Anion Gap 10 mmol/L (5-15) Blood Urea Nitrogen 26 mg/dL (7-18) H Creatinine 1.1 MG/DL (0.55-1.30) Estimat Glomerular Filtration Rate 49.6 mL/min (>60) Glucose Level 193 MG/DL (74-106) H Calcium Level 9.9 MG/DL (8.5-10.1) Phosphorus Level 2.5 MG/DL (2.5-4.9) Magnesium Level 1.4 MG/DL (1.8-2.4) L Total Bilirubin 0.5 MG/DL (0.2-1.0) Aspartate Amino Transf (AST/SGOT) 11 U/L (15-37) L Alanine Aminotransferase (ALT/SGPT) 21 U/L (12-78) Alkaline Phosphatase 140 U/L (46-116) H Total Protein 6.4 G/DL (6.4-8.2) Albumin 2.3 G/DL (3.4-5.0) L Globulin 4.1 g/dL Albumin/Globulin Ratio 0.6 (1.0-2.7) L Current Medications Medications (Trade) Dose Ordered Sig/Kajal Route PRN Reason Start Time Stop Time Status Last Admin Dose Admin Acetaminophen (Tylenol) 650 mg Q4H PRN ORAL Mild Pain/Temp > 100.2 01/04/19 21:00 01/25/19 20:59 Acetaminophen (Tylenol) 650 mg Q6H PRN ORAL headache 01/04/19 20:45 01/16/19 14:44 Al Hydroxide/Mg Hydroxide (Mylanta) 30 ml Q6H PRN ORAL dyspepsia 01/04/19 21:30 01/27/19 09:29 Amlodipine Besylate (Norvasc) 5 mg BID ORAL 01/05/19 09:00 02/02/19 08:59 01/06/19 09:15 Chlorhexidine Gluconate (Yulia-Hex 2%) 1 applic DAILY@1999 TOPIC 01/04/19 20:00 01/16/19 19:59 01/05/19 20:13 Clonidine HCl (Catapres Tab) 0.1 mg Q6H PRN SL SBP>150 mmHg 01/04/19 22:00 01/21/19 21:59 01/05/19 11:56 Dextrose 1,000 ml @ 0 mls/hr Q24H PRN IV PN interrupted or unavailable 01/04/19 20:00 01/19/19 19:59 Dextrose (Dextrose 50%) 25 ml Q30M PRN IV Hypoglycemia 01/04/19 19:15 01/21/19 12:44 Dextrose (Dextrose 50%) 50 ml Q30M PRN IV Hypoglycemia 01/04/19 19:15 01/21/19 12:44 Dextrose/ Electrolytes 1,000 ml @ 50 mls/hr Q20H IV 01/04/19 20:00 02/02/19 19:59 01/06/19 09:45 Diphenhydramine HCl (Benadryl) 50 mg Q4H PRN ORAL Itching 01/04/19 20:00 01/26/19 19:59 Famotidine (Pepcid I.v.) 20 mg Q12HR IVP 01/04/19 21:00 02/02/19 08:59 01/06/19 09:14 Fat Emulsion Intravenous 216 ml/Amino Acids/ Electrolytes/ Dextrose 1,776 ml @ 74 mls/hr Q24H IV 01/04/19 20:00 01/29/19 19:59 01/05/19 20:15 Fentanyl (Duragesic) 1 patch Q72H TDERMAL 01/05/19 09:00 01/12/19 08:59 01/05/19 09:21 Fentanyl Citrate (Sublimaze 100 mcg/2 mL) 12.5 mcg Q2H PRN IV Breakthrough Pain 01/04/19 21:45 01/11/19 19:59 01/06/19 02:38 Hydralazine HCl (Apresoline) 10 mg Q4H PRN IV For High Blood Pressure 01/05/19 12:19 02/04/19 12:18 01/05/19 12:51 Insulin Aspart (NovoLOG) Q6HR SUBQ 01/05/19 00:00 01/21/19 17:59 01/06/19 06:07 Levothyroxine Sodium (Synthroid) 100 mcg DAILY IV 01/05/19 09:00 02/04/19 08:59 01/06/19 09:14 Lidocaine (Lidoderm 5% PATCH) 1 patch DAILY TDERMAL 01/04/19 19:00 02/03/19 18:29 01/06/19 09:11 Lidocaine (Lidoderm 5% PATCH) 1 patch DAILY TDERMAL 01/04/19 19:00 02/03/19 18:29 01/06/19 09:13 Lisinopril (Prinivil) 40 mg DAILY ORAL 01/05/19 09:00 01/30/19 08:59 01/06/19 09:15 Metoprolol Succinate (Toprol XL) 25 mg DAILY ORAL 01/05/19 09:00 01/23/19 08:59 01/06/19 09:15 Micafungin Sodium 100 mg/Sodium Chloride 110 ml @ 110 mls/hr Q24H IVPB 01/04/19 20:00 01/10/19 19:59 01/05/19 20:14 Miscellaneous Medication (fentaNYL Destruction) 1 ea Q72H MISC 01/05/19 08:59 02/04/19 08:58 01/05/19 09:24 Mycophenolate Mofetil (Cellcept) 750 mg Q12HR ORAL 01/04/19 21:00 01/24/19 08:59 01/06/19 09:16 Naloxone HCl (Narcan) 0.1 mg PRN IV Sedation scale 3 or 4 01/04/19 19:00 02/03/19 13:44 Ondansetron HCl (Zofran) 4 mg Q6H PRN IVP Nausea & Vomiting 01/04/19 19:15 01/20/19 07:14 01/06/19 02:36 Pantoprazole (Protonix) 40 mg DAILY IVP 01/05/19 09:00 01/25/19 08:59 01/06/19 09:14 Piperacillin Sod/ Tazobactam Sod 3.375 gm/Dextrose 100 ml @ 25 mls/hr EVERY 8 HOURS IVPB 01/04/19 22:00 01/08/19 13:59 01/06/19 06:05 Prochlorperazine (Compazine) 10 mg Q6H PRN IVP Nausea & Vomiting 01/04/19 20:00 01/19/19 19:59 01/06/19 07:47 Tacrolimus (Prograf) 1 mg DAILY ORAL 01/05/19 09:00 02/04/19 08:59 01/06/19 09:02 Tacrolimus (Prograf) 2 mg BEDTIME ORAL 01/04/19 21:00 01/16/19 20:59 01/05/19 20:14 Trazodone HCl (Desyrel) 25 mg HSPRN PRN ORAL INSOMNIA 01/04/19 20:00 02/03/19 19:59 01/05/19 03:02 Philly Shelby MD Jan 06, 2019 12:14
--- NOTE | 2019-01-06 12:24 | NUR ---
P.T Note: Order to restart P.T received S/P exploratory laparotomy and revision of ileostomy. P.T evaluation completed and tx initiated. Pt tolerated P.T eval/tx well with vital signs stable althrough out P.T session despite c/o abdominal pain 5-7/10 ( premedicated ). Please refer to P.T evaluation for current functional status. Pt is limited by pain, generalized weakness/deconditioning . Functional activities/mobilities are also restricted by multiple essential ICU lines/tubings/monitors , ileostomy bag. Pt currently required MIN A X 1 and extended time for bed mobilities using the overhead trapeze, MIN A x 1 for transfers. Able to sit unsupported, able to stand and take 3-4 steps with FWW with MIN A x 1. Pt appeared exhausted post P.T eval/tx session. Pt will be seen for thera ex's and ADL/functional mobility training gait training to increase her strength, endurance and activity tolerance to increase her mobility independence and safety for return to PLOF.
--- NOTE | 2019-01-06 13:20 | NUR ---
*-*INSURANCE *-* UPDATED CLINICALS AND REVIEW HAVE BEEN FAXED TO: [facility]#[phone]
--- NOTE | 2019-01-06 14:00 | NUR ---
NURSE NOTES: Dr. Shelby assessed patient and ordered Blood culture x2, 1 peripheral and 1 from PICC, d/t elevated WBC. Dr. Shelby notified of inability to obtain blood from PICC. Dr. Shelby decided okay to obtain peripheral blood culture only. Urine collected to culture.
--- NOTE | 2019-01-06 14:26 | Critical Care Progress Note ---
Assessment/Plan Status Narrative Ulcerative colitis S/P Ileostomy Leukocytosis HTN Hypothyroidism Hypoalbuminemia Anemia Assessment/Plan ICU monitor IV Fluids TPN Increase Fentanyl patch to 50 Mcg/3 days Clonidine 0.1 mg Q6 h PRN- may increase as needed Hydralazine IV PRN Monitor I/Os Monitor labs. I/S Consider IV Iron Discussed with ICU Staff. Critical Care - Subjective Interval Events: Was able to stand up with PT WBC increased C/O abd. pain BP improved Condition: stable IV Access: central IV Fluids: D5 1/2 NS I&O: Intake and Output 01/05/19 01/06/19 19:00 07:00 Intake Total 1813 ml 1730.4 ml Output Total 2155 ml 1755 ml Balance -342 ml -24.6 ml Intake Oral 90 ml 340 ml IV Total 1663 ml 1330.4 ml Other 60 ml 60 ml Output Urine Total 1405 ml 755 ml Other 750 ml 1000 ml Critical Care - Objective CXR: Having greenish DC from the LLQ wound site Last 24 Hour Vital Signs Date Time Temp Pulse Resp B/P (MAP) Pulse Ox O2 Delivery O2 Flow Rate FiO2 01/06/19 13:00 94 20 148/73 (98) 100 01/06/19 12:02 97 01/06/19 12:00 Nasal Cannula 2.0 01/06/19 12:00 98.6 92 18 157/67 (97) 100 01/06/19 11:00 90 14 158/63 (94) 100 01/06/19 10:00 97 18 161/72 (101) 97 01/06/19 09:15 96 154/70 01/06/19 09:15 154/70 01/06/19 09:15 96 154/70 01/06/19 09:00 100 18 154/70 (98) 98 01/06/19 08:00 98.8 98 14 149/71 (97) 99 01/06/19 08:00 Nasal Cannula 2.0 01/06/19 07:35 95 01/06/19 07:00 101 16 161/82 (108) 98 01/06/19 06:00 94 16 158/72 (100) 99 01/06/19 05:00 92 15 90/69 (76) 100 01/06/19 04:00 108 23 144/86 (105) 96 01/06/19 04:00 Nasal Cannula 2.0 01/06/19 03:00 94 20 141/83 (102) 100 01/06/19 03:00 94 01/06/19 02:00 95 19 149/81 (103) 100 01/06/19 01:00 97 17 149/63 (91) 99 01/06/19 00:00 Nasal Cannula 2.0 01/06/19 00:00 97 23 136/88 (104) 100 01/05/19 23:34 93 01/05/19 23:00 94 16 147/62 (90) 100 01/05/19 22:00 95 20 149/71 (97) 100 01/05/19 21:00 Nasal Cannula 2.0 01/05/19 21:00 94 18 152/78 (102) 100 01/05/19 20:00 97 20 86/61 (69) 99 01/05/19 19:12 99 01/05/19 19:03 98 Nasal Cannula 1.0 24 01/05/19 19:00 102 20 154/61 (92) 99 01/05/19 18:00 100 21 154/70 (98) 99 01/05/19 17:45 99 154/70 01/05/19 17:00 105 20 158/70 (99) 99 01/05/19 16:00 99.4 101 20 144/87 (106) 99 01/05/19 15:00 100 21 143/74 (97) 99 Neck: full ROM Abdomen: soft, other - Tender, hypoactive BS Micro: Microbiology Date/Time Source Procedure Growth Status 01/03/19 16:55 Blood Blood Culture - Preliminary NO GROWTH AFTER 48 HOURS Resulted 01/03/19 16:50 Blood Blood Culture - Preliminary NO GROWTH AFTER 48 HOURS Resulted Accucheck: 266 Micha Ziegler MD Jan 06, 2019 14:26
--- NOTE | 2019-01-06 14:45 | General Progress Note ---
Progress Note Progress Note AVSS More comfortable and not needing breakthrough SQ fentanyl much any more - still with 50mcg transdermal patch ABdomen soft, seepage of peritoneal fluid via midline incision (somewhat tenuous closure at surgery) - not enteric fluid Urine 2170 Gastrostomy 1750 Ileostomy - nil WBC up 21,700 Hgb down 8.8 BUN 26 Cr 1.1 Albumin 2.3 Imp. Ileus Anemia Infection Plan: continue TPN, gastrostomy to drainage, urinary Pickett to wear abdominal binder at all times with hole cut over ileostomy stoma f/u labs Lars Sotomayor MD Jan 06, 2019 14:45
--- NOTE | 2019-01-06 14:45 | NUR ---
NURSE NOTES: Lower abdominal incision dressing changed, d/t 2 4x4 gauze being wet from greenish, brown colored drainage at 14:20. Old dressing saved and shown to Dr. Sotomayor. Dr. Sotomayor at bedside, assessing patient and incision and changed the entire dressing. Dr. Sotomayor stated that abdominal incision looks good and clean, drainage not coming from intestinal contents. Given the okay to apply abdominal binder with holes cut out for ileostomy stoma and gastrostomy tube. Patient reports feeling more comfortable in the abdominal binder.
[2019-01-06 15:40] LABS: APPEARANCE,URINE CLEAR; BILIRUBIN, URINE NEGATIVE (NEGATIVE); COLOR,URINE PALE YELLOW; GLUCOSE, URINE (UA) 3+ (NEGATIVE); KETONES,URINE NEGATIVE (NEGATIVE); LEUKOCYTE ESTERASE ,URINE 2+ (NEGATIVE); NITRITE,URINE NEGATIVE (NEGATIVE); PH,URINE 6.5 (4.5-8.0); PROTEIN,URINE 2+ (NEGATIVE); UROBILINOGEN,URINE NORMAL MG/DL (0.0-1.0)
[2019-01-06] MEDS: Vancomycin 500mg/D5W 110ml IVPB SCH ×2 (16:23)
--- NOTE | 2019-01-06 18:00 | NUR ---
NURSE NOTES: Abdominal incision drains greenish brown color drainage when patient coughs or sneezes. Pt felt nauseous, was given Compazine 10MG, with effect. Lower part of abdominal dressing changed, stoma care done and whole ileostomy bag changed d/t leaking.
--- NOTE | 2019-01-06 19:15 | NUR ---
HAND-OFF: Report given to PATRICK Bowman.
--- NOTE | 2019-01-06 19:30 | NUR ---
NURSE NOTES: Received pt awake and alert AO x4, SR on the monitor. bp stable, afebrile. Abdominal drsg dry and intact with GT to drain with greenish light brownish drainage, moderate in amt. RT lower abdominal ileostomy no drainage and with pinkish stoma.. Pt on 02 at 2L/NC 02 sat >95%, pt able to tolerate incentive spirometer x 10 while awake able to raise 500ml HOB kept elevated. Watch for any resp distress. Pt skin is intact except with the abdominal surgical site with drsg dry and intact. Pickett to gravity with sebastian yellow urine moderate in amt. pt able to move side to side with the use of overhead trapeze. TPN at 74ml/hr and D51/2nS + 40meq KCL at 50ml/hr infusing well to Left upper arm PICC line. Site with drsg dry and intact. Will continue to monitor.
[2019-01-06] MEDS: Dyna-Hex 2% Top Sol 2oz TOPIC SCH (20:26)
[2019-01-06] MEDS: Micafungin 100 MG in NS 110 ML IVPB SCH (20:26)
[2019-01-06] MEDS: Fat Emulsion Iv 20% 216 ML in Tpn 1,560 ML IV SCH (20:28)
--- NOTE | 2019-01-06 21:56 | NUR ---
NURSE NOTES: Notify Dr Sotomayor with pts brownish abdominal drainage , on and off moderate in amt, abdominal drsg was totally changed. Awaiting for md to call back.
[2019-01-07] VITALS (27 sets, daily range): BP systolic 92–178; BP diastolic 44–97
[2019-01-07] MEDS: NovoLOG Insulin Flexpen SUBQ SCH ×4 (00:01→17:46)
--- NOTE | 2019-01-07 00:03 | NUR ---
NURSE NOTES: Pain level was 7 per pt. after sublimaze 12.5mcg subcut.
--- NOTE | 2019-01-07 00:23 | NUR ---
NURSE NOTES: Hydralazine 10 mg ivp given due to BP 161/97. Abdominal drsg was soaked with brownish liquid. Drsg changed.
[2019-01-07] MEDS: fentaNYL 100 mcg/2 mL IV PRN ×5 (01:01→12:44)
--- NOTE | 2019-01-07 01:03 | NUR ---
NURSE NOTES: Fentanyl 12.5mcg ivp given for back pain scale of 10.
--- NOTE | 2019-01-07 01:48 | NUR ---
NURSE NOTES: Abdominal drsg was changed. pain level is 2 per pt. abdominal binder ( hole was placed to uncover stoma) was placed. per pt request.
[2019-01-07] MEDS: D5 1/2NS w/KCl 40meq 1000ml 1,000 ML IV SCH (02:00)
--- NOTE | 2019-01-07 02:30 | NUR ---
NURSE NOTES: Pt seen sleeping and snoring at this time. VSS
[2019-01-07] MEDS: Vancomycin 500mg/D5W 110ml IVPB SCH ×4 (03:02→16:33)
--- NOTE | 2019-01-07 03:06 | NUR ---
NURSE NOTES: Fentanyl 12.5mcg given for pts pain scale of 10
[2019-01-07 04:47] LABS: HEMATOCRIT 25.1 % (37.0-47.0); HEMOGLOBIN 8.3 G/DL (12.0-16.0); MEAN CORPUSCULAR VOLUME 94 FL (80-99); PLATELET COUNT 474 K/UL (150-450); RED BLOOD COUNT 2.67 M/UL (4.20-5.40); RED CELL DISTRIBUTION WIDTH 13.3 % (11.6-14.8)
[2019-01-07 05:00] LABS: WHITE BLOOD COUNT 25.3 K/UL (4.8-10.8)
--- NOTE | 2019-01-07 05:08 | NUR ---
NURSE NOTES: Fentanyl 12.5mcg ivp given due to pain scale of 9
[2019-01-07 05:09] LABS: ALANINE AMINOTRANSFERASE 17 U/L (12-78); ALBUMIN 1.8 G/DL (3.4-5.0); ALBUMIN/GLOBULIN RATIO 0.4 (1.0-2.7); ALKALINE PHOSPHATASE 224 U/L (46-116); ANION GAP 8 mmol/L (5-15); ASPARTATE AMINO TRANSFERASE 11 U/L (15-37); BILIRUBIN,TOTAL 0.4 MG/DL (0.2-1.0); BLOOD UREA NITROGEN 26 mg/dL (7-18); CALCIUM 9.2 MG/DL (8.5-10.1); CARBON DIOXIDE 22 MMOL/L (21-32); CHLORIDE 104 MMOL/L (98-107); CREATININE 1.1 MG/DL (0.55-1.30); PHOSPHORUS 1.9 MG/DL (2.5-4.9); POTASSIUM 3.9 MMOL/L (3.5-5.1); SODIUM 134 MMOL/L (136-145)
--- NOTE | 2019-01-07 06:00 | NUR ---
NURSE NOTES: Abdominal drsg was changed with new abdominal binder VSS, No resp distress noted.
--- NOTE | 2019-01-07 07:15 | NUR ---
NURSE NOTES: Endosed to Shelley Patterson RN to aware Dr Pearce with elevated WBC.
--- NOTE | 2019-01-07 07:23 | NUR ---
NURSE NOTES: Received pt from PATRICK Bowman. Patient is awake. A/Ox4. C/O of abd pain 10/29, will administer pain medication. GT on left upper abd draining to gravity and connected to drainage bag, drainage noted to be brown/greenish, moderate in amt. Left lower ileostomy noted, no drainage noted. Stoma is bright red, skin around stoma is intact and asymptomatic. Surgical wound on abdomen with reggie; brownish/reddish drainage noted; moderate in amt. Covered with 4x4 gauze and ABD pad with abdominal binder. RIJ TLC noted connected to TKO, dressing asymptomatic. DEBBIE PICC running D51/2NS w/40meq KCL@50ml/hr and TPN@74ml/hr. Dressing asymptomatic. SR on security monitor. Afebrile. Breathing even and unlabored. 2LNC in place. Patient has an overhead trapeze to move side to side. Pickett catheter draining to gravity, yellow in color with sediments. SCD's in place. Bed locked, alarmed and in lowest position. Call light within reach. Will continue plan of care.
--- NOTE | 2019-01-07 07:38 | NUR ---
HAND-OFF: Report given to Shelley Patterson RN.
--- NOTE | 2019-01-07 08:15 | General Progress Note ---
Progress Note Progress Note AVSS Now leaking enteric fluid through lower pole of incision. Abdomen soft, incision grossly intact, ileostomy RLQ pink Urine 2325cc Gastrostomy 1255 Ileostomy nil WBC 25,300 Hgb 8.3 Platelets 474,000 Mg 1.7 P 1.9 Albumin 1.8 Imp. Intestinal leak Plan: Transfuse 1 unit PRBC now, replace MG and P Laparotomy with repair intestinal leak - scheduled for 1300 Full discussion with patient and Lars Sotomayor MD Jan 07, 2019 08:15
--- NOTE | 2019-01-07 08:15 | Pre-Procedure Note/Attestation ---
Pre-Procedure Note/Attestation Complete Prior to Procedure Planned Procedure: not applicable Procedure Narrative: laparotomy and repair intestinal leak Indications for Procedure Pre-Operative Diagnosis: post-operative intestinal leak Attestation I attest that I discussed the nature of the procedure; its benefits; risks and complications; and alternatives (and the risks and benefits of such alternatives ), prior to the procedure, with the patient (or the patient's legal financial services sales representative). I attest that, if there was a reasonable possibility of needing a blood transfusion, the patient (or the patient's legal financial services sales representative) was given the [place] Department [employer] Services standardized written summary, pursuant to the Jesus Opal Blood Safety Act ([place] Health and Safety Code # 1645, as amended). I attest that I re-evaluated the patient just prior to the surgery and that there has been no change in the patient's H&P, except as documented below:none Lars Sotomayor MD Jan 07, 2019 08:15
[2019-01-07] MEDS: Pantoprazole Inj IVP SCH (08:34)
[2019-01-07] MEDS: Mycophenolate 250mg cap ORAL SCH ×2 (08:35→20:40)
[2019-01-07] MEDS: Lisinopril 20mg tab ORAL SCH (08:36)
[2019-01-07] MEDS: Metoprolol Succinate XL 25mg tab ORAL SCH (08:37)
--- NOTE | 2019-01-07 08:42 | NUR ---
P.T Note: Pt. is scheduled for surgery today for Laparoscopic Repair of Intestinal Leak. P.T will be put on hold at this time until clearance from Dr. Sotomayor received to continue with P.T. Conferred with PATRICK Lyons.
--- NOTE | 2019-01-07 08:50 | NUR ---
RADIOLOGY DEPT., CHEST X-RAY DONE.-P.DYE
[2019-01-07] MEDS ORDERED: Potassium Phosphate 20 MM in NS 275 ML IV ONE (09:00)
--- NOTE | 2019-01-07 09:00 | NUR ---
NURSE NOTES: Notified Dr. Sawyer regarding increased WBC 25.3. No new orders given as per ordered. Redressed suture site with 4x4 and ABD pad. Brownish drainage noted from suture site. Dr. Sotomayor came by bedside and seen patient. Patient scheduled for surgery at 1pm today. Abdominal binder in place.
--- NOTE | 2019-01-07 09:00 | NUR ---
NURSE NOTES: GT clamped before PO meds. Flushed GT with 20cc NS before giving PO meds.
--- NOTE | 2019-01-07 09:08 | General Progress Note ---
Assessment/Plan Status: progressing Assessment/Plan: fu LFTs>>> stable now on TPN cellcept 750 BID prograft 3 gm per day monitor for Lyte protonix will fu labs ICU care fu surg recs>>> pending repeat surg today for leak abx per ID will fu Subjective Allergies: Coded Allergies: CODEINE (Verified Allergy, Severe, 12/17/18) Face contractions HYDROMORPHONE (Verified Allergy, Severe, Itching, 12/17/18) Itching whole body METOCLOPRAMIDE (Verified Allergy, Severe, 12/17/18) Face contractions MORPHINE (Verified Allergy, Severe, Shortness of Breath, 12/17/18) SULFA (SULFONAMIDE ANTIBIOTICS) (Verified Allergy, Severe, 12/17/18) Face contractions Subjective abd pain sleeping Objective Last 24 Hour Vital Signs Date Time Temp Pulse Resp B/P (MAP) Pulse Ox O2 Delivery O2 Flow Rate FiO2 01/07/19 08:37 98 153/66 01/07/19 08:36 160/74 01/07/19 08:36 101 160/74 01/07/19 07:00 98 18 153/66 (95) 100 01/07/19 06:00 100 18 130/63 (85) 100 01/07/19 05:00 100 19 140/74 (96) 100 01/07/19 04:00 99.0 102 19 155/74 (101) 100 01/07/19 04:00 105 01/07/19 04:00 Nasal Cannula 2.0 01/07/19 03:00 105 19 145/60 (88) 100 01/07/19 02:00 106 19 145/60 (88) 100 01/07/19 01:00 106 19 147/66 (93) 100 01/07/19 00:21 161/97 01/07/19 00:00 Nasal Cannula 2.0 01/07/19 00:00 98.0 102 18 161/97 (118) 100 01/06/19 23:00 100 18 149/66 (93) 100 01/06/19 22:00 100 19 159/73 (101) 100 01/06/19 21:18 98 Nasal Cannula 2.0 28 01/06/19 21:00 95 21 132/60 (84) 100 01/06/19 20:00 100 01/06/19 20:00 99.6 100 19 141/67 (91) 100 01/06/19 20:00 Nasal Cannula 2.0 01/06/19 19:00 104 26 140/67 (91) 100 01/06/19 18:03 101 139/106 01/06/19 18:00 98.2 104 18 157/82 (107) 100 01/06/19 17:00 100 19 148/66 (93) 100 01/06/19 16:00 Nasal Cannula 2.0 01/06/19 16:00 99.0 101 19 148/71 (96) 100 01/06/19 15:29 96 01/06/19 15:00 98 19 157/67 (97) 99 01/06/19 14:00 95 18 154/77 (102) 100 01/06/19 13:00 94 20 148/73 (98) 100 01/06/19 12:02 97 01/06/19 12:00 Nasal Cannula 2.0 01/06/19 12:00 98.6 92 18 157/67 (97) 100 01/06/19 11:00 90 14 158/63 (94) 100 01/06/19 10:00 97 18 161/72 (101) 97 01/06/19 09:15 96 154/70 01/06/19 09:15 154/70 01/06/19 09:15 96 154/70 Intake and Output 01/06/19 01/07/19 19:00 07:00 Intake Total 2261.1 ml 1688 ml Output Total 2095 ml 1450 ml Balance 166.1 ml 238 ml Intake Oral 100 ml 30 ml IV Total 2101.1 ml 1598 ml Other 60 ml 60 ml Output Urine Total 1320 ml 870 ml Other 775 ml 580 ml Laboratory Tests 01/06/19 12:55: Urine Color Pale yellow, Urine Appearance Clear, Urine pH 6.5, Urine Specific [place] 1.015, Urine Protein 2+H, Urine Glucose (UA) 3+H, Urine Ketones Negative , Urine Blood 5+H, Urine Nitrite Negative, Urine Bilirubin Negative, Urine Urobilinogen Normal, Urine Leukocyte Esterase 2+H, Urine RBC 10-15H, Urine WBC 2 -4, Urine Squamous Epithelial Cells Occasional, Urine Bacteria Few 01/07/19 04:15: White Blood Count 25.3*H, Red Blood Count 2.67L, Hemoglobin 8.3L, Hematocrit 25.1L, Mean Corpuscular Volume 94, Mean Corpuscular Hemoglobin 31.2H, Mean Corpuscular Hemoglobin Concent 33.3, Red Cell Distribution Width 13.3, Platelet Count 474H, Mean Platelet Volume 5.7L, Neutrophils (%) (Auto) , Lymphocytes (%) (Auto) , Monocytes (%) (Auto) , Eosinophils (%) (Auto) , Basophils (%) (Auto) , Differential Total Cells Counted 100, Neutrophils % (Manual) 90H, Lymphocytes % (Manual) 4L, Monocytes % (Manual) 2, Eosinophils % (Manual) 1, Basophils % ( Manual) 0, Band Neutrophils 3, Platelet Estimate IncreasedH, Platelet Morphology Normal, Red Blood Cell Morphology Normal, Sodium Level 134L, Potassium Level 3.9, Chloride Level 104, Carbon Dioxide Level 22, Anion Gap 8, Blood Urea Nitrogen 26H, Creatinine 1.1, Estimat Glomerular Filtration Rate 49.6 , Glucose Level 252H, Calcium Level 9.2, Phosphorus Level 1.9L, Magnesium Level 1.7L, Total Bilirubin 0.4, Aspartate Amino Transf (AST/SGOT) 11L, Alanine Aminotransferase (ALT/SGPT) 17, Alkaline Phosphatase 224H, Total Protein 6.0L, Albumin 1.8L, Globulin 4.2, Albumin/Globulin Ratio 0.4L Height (Feet): 5 Height (Inches): 4.00 Weight (Pounds): 134 General Appearance: no apparent distress EENT: normal ENT inspection Neck: supple Cardiovascular: normal rate Respiratory/Chest: decreased breath sounds Abdomen: hypoactive bowel sounds, distended, tender Extremities: non-tender Max Dozier MD Jan 07, 2019 09:08
--- NOTE | 2019-01-07 09:35 | NUR ---
CASE MANAGEMENT:REVIEW 01/07/19 SI: POD #20 AND POD#3 S/P RESECTION,ENTEROENTEROSTOMY AND CREATION OF SUKHI ILEOSTOMY TO SURGERY~SMALL BOWEL RESECTION AND RELOCATION OF ILEOSTOMY TO RLQ 99.0 101 18 160/74 100% ON RA WBC+25.3 H/H-8.3/25.1 PHOS-1.9 MAG-1.7 IS: TPN/IL @ 74/HR IV MICAFUNGIN Q24 IV ZOSYN Q8HRS IV MEROPENEM Q12 IV VANCOMYCIN Q12 IV MAG SULFATE Q1HRS X2 BAGS IV K-PHOS X1 IVF@50/HR IV FENTANYL Q2HRS PRN CELLCEPT PO Q12 PROGRAF PO QHS LIDOCAINE PATCH NORVASC PO BID IV SYNTHROID QD LISINOPRIL PO QD TOPROL PO QD : ICU STATUS
--- NOTE | 2019-01-07 10:20 | NUR ---
NURSE NOTES: Blood transfusion began. VSS. BP 132/51, P 97, T 99.0, Spo2 100%, RR 12. Patient observed sleeping in bed. Denies any pain at this time. Will be with patient for first 15 minutes of blood transfusion.
[2019-01-07] MEDS ORDERED: Heparin 5000 units/ml inj SUBQ SCH (11:00)
--- NOTE | 2019-01-07 11:24 | Diagnostic Imaging Report ---
Indication: Shortness of breath Technique: XRAY Chest 1v Comparison: 12/27/2018 Findings: Left arm PICC line remains in place with the catheter tip the cavoatrial junction. Interval placement of a right transjugular central venous catheter which has its catheter tip in the region of the high right atrium. Heart size and mediastinal contours are stable. There are atherosclerotic vascular calcifications. There is no definite focal airspace consolidation. No pleural effusion or pneumothorax. No radiographic evidence of pulmonary edema. Surgical clips noted in the epigastric region. No acute osseous abnormality. IMPRESSION: Interval placement of a right transjugular central line, catheter tip in the region of the high right atrium. Left arm PICC line remains in place with the catheter tip at the cavoatrial junction. No evidence of pneumothorax. No definite focal airspace consolidation or pleural effusion. Surgical clips noted projecting over the upper abdomen.
--- NOTE | 2019-01-07 12:20 | NUR ---
NURSE NOTES: x1 PRBC transfusion complete. VSS. T 98.8, P 87, BP 172/61, Spo2 100%, RR 16. No signs of distress.
[2019-01-07] MEDS ORDERED: LR 1000ml ONE (14:00)
--- NOTE | 2019-01-07 14:00 | NUR ---
NURSE NOTES: Merrem given to Mauve, OR charge nurse to be administered before surgery.
[2019-01-07] MEDS ORDERED: Rocuronium Bromide 50mg/5ml Inj IV ONE (14:01)
--- NOTE | 2019-01-07 14:08 | NUR ---
NURSE NOTES: Patient went down to surgery accompanied by RN and transporter.
--- NOTE | 2019-01-07 14:10 | Immediate Post-Op Evaluation ---
Immediate Post-Op Evalulation Immediate Post-Op Evalulation Procedure: Exploratory Laparotomy, Bowel Resection Date of Evaluation: Jan 07, 2019 Time of Evaluation: 16:33 IV Fluids: 600LR Blood Products: 0 Estimated Blood Loss: 50 Urinary Output: 100 Blood Pressure Systolic: 127 Blood Pressure Diastolic: 65 Pulse Rate: 73 Respiratory Rate: 20 - Mech Vent O2 Sat by Pulse Oximetry: 100 Temperature (Fahrenheit): 98.4 Pain Score (1-10): 2 Nausea: No Vomiting: No Complications 0 Patient Status: awake, reacts, patent, none Hydration Status: adequate Dru Vancomycin IV Given Within 1 Hr of Incision: Yes Lalo Martin MD Jan 07, 2019 14:10
[2019-01-07] MEDS ORDERED: Dexamethasone 4mg/ml vial ONE (14:16)
[2019-01-07] MEDS ORDERED: Lidocaine 1% MPF 10mg/ml 5ml ONE (14:16)
[2019-01-07] MEDS ORDERED: Lidocaine 1% Plain 30 ml INJ ONE (14:16)
[2019-01-07] MEDS ORDERED: Sodium Chloride 10ml vial INJ ONE (14:16)
[2019-01-07] MEDS ORDERED: Propofol 200mg/20ml IV ONE (14:16)
[2019-01-07] MEDS ORDERED: Acetaminophen (Non formulary) 100 ML IV ONE (14:30)
[2019-01-07] MEDS ORDERED: Bacitracin 50000 Units Vial ONE (14:34)
[2019-01-07] MEDS ORDERED: fentaNYL 100 mcg/2 mL IV ONE (14:34)
[2019-01-07] MEDS ORDERED: Midazolam 2mg/2ml Inj ONE (14:34)
[2019-01-07] MEDS ORDERED: fentaNYL Destruction MISC SCH ×2 (14:59→17:30)
[2019-01-07] MEDS ORDERED: NS Irrig 1000ml IRRIG ONE (15:15)
--- NOTE | 2019-01-07 15:38 | NUR ---
NURSE NOTES: Received pt from PATRICK Bowman. Patient is awake. A/Ox4. C/O of abd pain 10/29, will administer pain medication. GT on left upper abd draining to gravity and connected to drainage bag, drainage noted to be brown/greenish, moderate in amt. Left lower ileostomy noted, no drainage noted. Stoma is bright red, skin around stoma is intact and asymptomatic. Surgical wound on abdomen with reggie; brownish/reddish drainage noted; moderate in amt. Covered with 4x4 gauze and ABD pad with abdominal binder. RIJ TLC noted connected to TKO, dressing asymptomatic. DEBBIE PICC running D51/2NS w/40meq KCL@50ml/hr and TPN@74ml/hr. Dressing asymptomatic. SR on cardiac care unit nurse. Afebrile. Breathing even and unlabored. 2LNC in place. Patient has an overhead trapeze to move side to side. Pickett catheter draining to gravity, yellow in color with sediments. SCD's in place. Bed locked, alarmed and in lowest position. Call light within reach. Will continue plan of care. Addendum: 01/07/19 at 1553 by HOWARD ADAMS RN Wrong time
--- NOTE | 2019-01-07 15:47 | Brief Operative Note ---
Immediate Post Operative Note Operative Note Pre-op Diagnosis: post-operative intestinal leak Procedure: laparotomy repair intestinal staple line dehiscence, apply wound vac Post-op Diagnosis: same Post-op Diagnosis: same as pre-op Findings: consistent w/pre-op dx studies Surgeon: lorena Wood Polisher: chucho Anesthesiologist: mariluz Anesthesia: general Specimen: none Complications: none Condition: stable Fluids: see anesthesia record Estimated Blood Loss: minimal Drains: none Implant(s) used?: No Lars Sotomayor MD Jan 07, 2019 15:47
--- NOTE | 2019-01-07 16:10 | NUR ---
NURSE NOTES: Patient returned from OR, s/p Exploratory laparotomy, leaking bowel resection. Patient is sedated and on ventilator. Patient intubated in OR. ETT 7.0/20cm at lip line, AC 18/450/50%/+5, spo2 100%. VSS. Afebrile. Patient has a wound vac, on continuous suction at 100mmHg. No leaking noted. No drainage noted at this time. Received orders to change Vent settings to AC 12/450/40%/+5 and ABG at [address] Germain.
--- NOTE | 2019-01-07 16:35 | NUR ---
*-*INSURANCE *-* UPDATED CLINICALS AND REVIEW HAVE BEEN FAXED TO: [facility]#[phone]
--- NOTE | 2019-01-07 17:00 | Critical Care Progress Note ---
Assessment/Plan Status Narrative UC S/P multiple abdominal surgeries Intestinal leakage s/p laparotomy repair intestinal staple line dehiscence, apply wound vac HTN H/O Liver transplant Hypothyroidism Assessment/Plan ICU monitor IV Fluids TPN Clonidine 0.1 mg Q6 h PRN- may increase as needed Hydralazine IV PRN Monitor I/Os Monitor labs. I/S Transfusion done Sedation x 2 days Planned for surgery on Saturday Discussed with Dr. Germain and ICU Staff Critical Care - Subjective Interval Events: 01/07/19- S/P Exploratory laparotomy repair intestinal staple line dehiscence, apply wound vac , intubated, sedated ROS Limited/Unobtainable: Yes Condition: critical IV Access: central EKG Rhythm: Sinus Tachycardia IV Fluids: D5 1/2 Ns at 50 cc/h Drips: TPN I&O: Intake and Output 01/06/19 01/07/19 19:00 07:00 Intake Total 2261.1 ml 1688 ml Output Total 2095 ml 1450 ml Balance 166.1 ml 238 ml Intake Oral 100 ml 30 ml IV Total 2101.1 ml 1598 ml Other 60 ml 60 ml Output Urine Total 1320 ml 870 ml Other 775 ml 580 ml Critical Care - Objective ET-Tube: 7.0 ET Position: 20 Last 24 Hour Vital Signs Date Time Temp Pulse Resp B/P (MAP) Pulse Ox O2 Delivery O2 Flow Rate FiO2 01/07/19 16:19 98 18 50 01/07/19 16:17 98 18 100 Mechanical Ventilator 50 01/07/19 16:16 73 20 100 01/07/19 13:14 89.9 01/07/19 12:00 98 01/07/19 12:00 Nasal Cannula 2.0 01/07/19 12:00 99.3 101 18 172/63 (99) 100 01/07/19 11:00 99 18 172/63 (99) 100 01/07/19 10:00 99 15 132/51 (78) 100 01/07/19 09:00 101 18 156/70 (98) 100 01/07/19 08:37 98 153/66 01/07/19 08:36 160/74 01/07/19 08:36 101 160/74 01/07/19 08:00 Nasal Cannula 2.0 01/07/19 08:00 99.0 101 18 161/66 (97) 100 01/07/19 08:00 97 01/07/19 07:00 99 Nasal Cannula 2.0 28 01/07/19 07:00 98 18 153/66 (95) 100 01/07/19 06:00 100 18 130/63 (85) 100 01/07/19 05:00 100 19 140/74 (96) 100 01/07/19 04:00 99.0 102 19 155/74 (101) 100 01/07/19 04:00 105 01/07/19 04:00 Nasal Cannula 2.0 01/07/19 03:00 105 19 145/60 (88) 100 01/07/19 02:00 106 19 145/60 (88) 100 01/07/19 01:00 106 19 147/66 (93) 100 01/07/19 00:21 161/97 01/07/19 00:00 Nasal Cannula 2.0 01/07/19 00:00 98.0 102 18 161/97 (118) 100 01/06/19 23:00 100 18 149/66 (93) 100 01/06/19 22:00 100 19 159/73 (101) 100 01/06/19 21:18 98 Nasal Cannula 2.0 28 01/06/19 21:00 95 21 132/60 (84) 100 01/06/19 20:00 100 01/06/19 20:00 99.6 100 19 141/67 (91) 100 01/06/19 20:00 Nasal Cannula 2.0 01/06/19 19:00 104 26 140/67 (91) 100 01/06/19 18:03 101 139/106 01/06/19 18:00 98.2 104 18 157/82 (107) 100 01/06/19 17:00 100 19 148/66 (93) 100 Condition: critical Lungs: clear Heart: normal rate, tachycardia Abdomen: soft, other - No BS, Open wound--to wound vac Extremities: no C/C/E Micro: Microbiology Date/Time Source Procedure Growth Status 01/06/19 12:55 Indwelling Cath Urine Culture - Preliminary NO GROWTH Resulted 01/06/19 22:30 Abdominal Fluid Gram Stain - Final Resulted 01/06/19 22:30 Abdominal Fluid Body Fluid Culture - Preliminary Resulted Accucheck: 231 Micha Ziegler MD Jan 07, 2019 17:00
--- NOTE | 2019-01-07 17:09 | NUR ---
Social Service Note Patient transferred to ICU for observation. Patient status post surgery for Dhillon pouch revision and placement of ileostomy. Patient had 2nd surgery during hospitalization. Patient is alert, oriented and verbally responsive. Patient continues to receive medical intervention. Anticipated return return home on discharge. Patient is a full code. Emergency contact is her Luis Alfredo Costello [phone]. Will monitor and be available as needed.
--- NOTE | 2019-01-07 17:11 | Consultation ---
Consult Note Assessment/Plan dict post op resp failure sp laparotomy sp liver xplnt HTN hyperglycemia leucocytosis HTN will follow and manage vent Vamsi Germain MD Jan 07, 2019 17:11
--- NOTE | 2019-01-07 17:17 | Infectious Diseases Prog Note ---
Assessment/Plan Assessment/Plan ASSESSMENT AND PLAN: 1. leukocytosis, fevers, ? sepsis, possible intra-abdominal infection/early sbo , s/p exploratory laparotomy and small bowel segmental resection, fungemia risk with hx of tpn and abx, + picc line s/p surgery for post-operative leak - 01/07/19 - antibiotics - vancomycin, meropenem and micafungin - f/u on surveillance cultures - consider change lines - f/u on blood cultures - monitor labs - icu care - operative notes reviewed - d/w RN - d/w Dr. Germain 2. 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 3. Liver transplantation. 4. Sclerosing cholangitis. 5. Ulcerative colitis. 6. The patient is anemic. 7. History of cholecystectomy, appendectomy, hysterectomy, and proctocolectomy. 8. History of multiple abdominal operations. 9. Allergies to codeine, hydromorphone, metoclopramide, morphine, and sulfa. 10. Family doctor is Noncontributory. 11. Social history is negative. 12. MAR was noted. 13. Case discussed with RN. 14. Case discussed with the patient. 15. Continue treatment per Dr. Sotomayor and consultants. Subjective Constitutional: Reports: other - on vent, sedated post-op ; Denies: fever HEENT: Reports: congestion Respiratory: Reports: shortness of breath Cardiovascular: Reports: other - no pressors Gastrointestinal/Abdominal: Reports: other - incision covered ; Denies: nausea , vomiting Genitourinary: Reports: other - + morales Neurologic: Reports: other - sedated post-op Psychiatric: Reports: other - NA Skin: Denies: rash Hematologic: Denies: bleeding Musculoskeletal: Reports: other - NA Allergies: Coded Allergies: CODEINE (Verified Allergy, Severe, 12/17/18) Face contractions HYDROMORPHONE (Verified Allergy, Severe, Itching, 12/17/18) Itching whole body METOCLOPRAMIDE (Verified Allergy, Severe, 12/17/18) Face contractions MORPHINE (Verified Allergy, Severe, Shortness of Breath, 12/17/18) SULFA (SULFONAMIDE ANTIBIOTICS) (Verified Allergy, Severe, 12/17/18) Face contractions Objective Vital Signs Last 24 Hour Vital Signs Date Time Temp Pulse Resp B/P (MAP) Pulse Ox O2 Delivery O2 Flow Rate FiO2 01/07/19 16:19 98 18 50 01/07/19 16:17 98 18 100 Mechanical Ventilator 50 01/07/19 16:16 73 20 100 01/07/19 16:00 100 18 138/66 (90) 100 01/07/19 13:14 89.9 01/07/19 13:00 99 18 172/63 (99) 100 01/07/19 12:00 98 01/07/19 12:00 Nasal Cannula 2.0 01/07/19 12:00 99.3 101 18 172/63 (99) 100 01/07/19 11:00 99 18 172/63 (99) 100 01/07/19 10:00 99 15 132/51 (78) 100 01/07/19 09:00 101 18 156/70 (98) 100 01/07/19 08:37 98 153/66 01/07/19 08:36 160/74 01/07/19 08:36 101 160/74 01/07/19 08:00 Nasal Cannula 2.0 01/07/19 08:00 99.0 101 18 161/66 (97) 100 01/07/19 08:00 97 01/07/19 07:00 99 Nasal Cannula 2.0 28 01/07/19 07:00 98 18 153/66 (95) 100 01/07/19 06:00 100 18 130/63 (85) 100 01/07/19 05:00 100 19 140/74 (96) 100 01/07/19 04:00 99.0 102 19 155/74 (101) 100 01/07/19 04:00 105 01/07/19 04:00 Nasal Cannula 2.0 01/07/19 03:00 105 19 145/60 (88) 100 01/07/19 02:00 106 19 145/60 (88) 100 01/07/19 01:00 106 19 147/66 (93) 100 01/07/19 00:21 161/97 01/07/19 00:00 Nasal Cannula 2.0 01/07/19 00:00 98.0 102 18 161/97 (118) 100 01/06/19 23:00 100 18 149/66 (93) 100 01/06/19 22:00 100 19 159/73 (101) 100 01/06/19 21:18 98 Nasal Cannula 2.0 28 01/06/19 21:00 95 21 132/60 (84) 100 01/06/19 20:00 100 01/06/19 20:00 99.6 100 19 141/67 (91) 100 01/06/19 20:00 Nasal Cannula 2.0 01/06/19 19:00 104 26 140/67 (91) 100 01/06/19 18:03 101 139/106 01/06/19 18:00 98.2 104 18 157/82 (107) 100 Height (Feet): 5 Height (Inches): 4.00 Weight (Pounds): 138 General Appearance: other - on vent, sedated HEENT: normocephalic, atraumatic, anicteric, no JVD, other - oral - intubated Respiratory/Chest: lungs clear, rhonchi - bilaterally, other - on vent Cardiovascular: normal rate, regular rhythm, no gallop/murmur Abdomen: hypoactive bowel sounds, other - incision covered Genitourinary: other - + morales - urine cloudy Extremities: no cyanosis Skin: no rash Neurologic/Psychiatric: other - sedated post-op Lymphatic: no neck adenopathy Musculoskeletal: no effusion Objective CT scan abdomen and pelvis: IMPRESSION: Status post recent abdominal surgery with creation of a left lower quadrant Yajaira ileostomy. Good bowel and bag opacification with no evidence of bowel obstruction. Unusual, markedly distended unopacified loop of bowel in the pelvis. Although unopacified, this does not appear to be an abscess as there is a wall and other characteristics more in keeping with bowel. Would consider a large diverticulum or possibly remnant of the previous Kock pouch or part of the small bowel leading to the old pouch as those segments are sometimes quite distended. Status post liver transplant. Status post cholecystectomy. Mild basal atelectasis. Chest x-ray - no pna, report noted CT abdomen/pelvis - 12/30/18 - Impression: Postsurgical changes, as described Unusual tubular structure filled mostly with gas but also some fluid communicating with the small bowel at the site of a right lower quadrant enteroenterostomy. Uncertain as to whether this represents an unusual large diverticulum, a true extraluminal gas collection, or a portion of an old continent ileostomy pouch. This is also previously described Dilated proximal small bowel proximal to the enteroenterostomy with slow forward propulsion of contents. Partial small bowel obstruction not completely excludable although unlikely given evidence of forward propulsion of contrast and filling of the ileostomy on prior 12/26/2018 exam; findings most likely functional in nature. Correlate with clinical findings Small anterior pelvic and deep pelvic fluid pockets, most likely represent retained postoperative fluid collections. Abscess as etiology of any of these not completely excludable; correlation with clinical findings recommended Postsurgical changes of the liver status post transplantation Punctate nonobstructing bilateral intrarenal calculi Bilateral basilar pulmonary parenchymal atelectasis and/or scarring Chest x-ray - 01/07/19 - Images previously reviewed in person with Dr. Sotomayor Interval placement of a right transjugular central line, catheter tip in the region of the high right atrium. Left arm PICC line remains in place with the catheter tip at the cavoatrial junction. No evidence of pneumothorax. No definite focal airspace consolidation or pleural effusion. Surgical clips noted projecting over the upper abdomen. Microbiology Date/Time Source Procedure Growth Status 01/03/19 16:55 Blood Blood Culture - Preliminary NO GROWTH AFTER 72 HOURS Resulted 01/06/19 12:55 Indwelling Cath Urine Culture - Preliminary NO GROWTH Resulted 01/06/19 22:30 Abdominal Fluid Gram Stain - Final Resulted 01/06/19 22:30 Abdominal Fluid Body Fluid Culture - Preliminary Resulted Microbiology Date/Time Source Procedure Growth Status 01/06/19 12:55 Indwelling Cath Urine Culture - Preliminary NO GROWTH Resulted 01/06/19 22:30 Abdominal Fluid Gram Stain - Final Resulted 01/06/19 22:30 Abdominal Fluid Body Fluid Culture - Preliminary Resulted Laboratory Tests Test 01/07/19 04:15 White Blood Count 25.3 K/UL (4.8-10.8) *H Red Blood Count 2.67 M/UL (4.20-5.40) L Hemoglobin 8.3 G/DL (12.0-16.0) L Hematocrit 25.1 % (37.0-47.0) L Mean Corpuscular Volume 94 FL (80-99) Mean Corpuscular Hemoglobin 31.2 PG (27.0-31.0) H Mean Corpuscular Hemoglobin Concent 33.3 G/DL (32.0-36.0) Red Cell Distribution Width 13.3 % (11.6-14.8) Platelet Count 474 K/UL (150-450) H Mean Platelet Volume 5.7 FL (6.5-10.1) L Neutrophils (%) (Auto) % (45.0-75.0) Lymphocytes (%) (Auto) % (20.0-45.0) Monocytes (%) (Auto) % (1.0-10.0) Eosinophils (%) (Auto) % (0.0-3.0) Basophils (%) (Auto) % (0.0-2.0) Differential Total Cells Counted 100 Neutrophils % (Manual) 90 % (45-75) H Lymphocytes % (Manual) 4 % (20-45) L Monocytes % (Manual) 2 % (1-10) Eosinophils % (Manual) 1 % (0-3) Basophils % (Manual) 0 % (0-2) Band Neutrophils 3 % (0-8) Platelet Estimate Increased H Platelet Morphology Normal Red Blood Cell Morphology Normal Sodium Level 134 MMOL/L (136-145) L Potassium Level 3.9 MMOL/L (3.5-5.1) Chloride Level 104 MMOL/L (98-107) Carbon Dioxide Level 22 MMOL/L (21-32) Anion Gap 8 mmol/L (5-15) Blood Urea Nitrogen 26 mg/dL (7-18) H Creatinine 1.1 MG/DL (0.55-1.30) Estimat Glomerular Filtration Rate 49.6 mL/min (>60) Glucose Level 252 MG/DL (74-106) H Calcium Level 9.2 MG/DL (8.5-10.1) Phosphorus Level 1.9 MG/DL (2.5-4.9) L Magnesium Level 1.7 MG/DL (1.8-2.4) L Total Bilirubin 0.4 MG/DL (0.2-1.0) Aspartate Amino Transf (AST/SGOT) 11 U/L (15-37) L Alanine Aminotransferase (ALT/SGPT) 17 U/L (12-78) Alkaline Phosphatase 224 U/L (46-116) H Total Protein 6.0 G/DL (6.4-8.2) L Albumin 1.8 G/DL (3.4-5.0) L Globulin 4.2 g/dL Albumin/Globulin Ratio 0.4 (1.0-2.7) L Current Medications Medications (Trade) Dose Ordered Sig/Kajal Route PRN Reason Start Time Stop Time Status Last Admin Dose Admin Acetaminophen (Tylenol) 650 mg Q4H PRN ORAL Mild Pain/Temp > 100.2 01/04/19 21:00 01/25/19 20:59 Acetaminophen (Tylenol) 650 mg Q6H PRN ORAL headache 01/04/19 20:45 01/16/19 14:44 Al Hydroxide/Mg Hydroxide (Mylanta) 30 ml Q6H PRN ORAL dyspepsia 01/04/19 21:30 01/27/19 09:29 Amlodipine Besylate (Norvasc) 5 mg BID ORAL 01/05/19 09:00 02/02/19 08:59 01/07/19 08:36 Chlorhexidine Gluconate (Yulia-Hex 2%) 1 applic DAILY@2000 TOPIC 01/04/19 20:00 01/16/19 19:59 01/06/19 20:26 Clonidine HCl (Catapres Tab) 0.1 mg Q6H PRN SL SBP>150 mmHg 01/04/19 22:00 01/21/19 21:59 01/05/19 11:56 Dextrose 1,000 ml @ 0 mls/hr Q24H PRN IV PN interrupted or unavailable 01/04/19 20:00 01/19/19 19:59 Dextrose (Dextrose 50%) 25 ml Q30M PRN IV Hypoglycemia 01/04/19 19:15 01/21/19 12:44 Dextrose (Dextrose 50%) 50 ml Q30M PRN IV Hypoglycemia 01/04/19 19:15 01/21/19 12:44 Dextrose/ Electrolytes 1,000 ml @ 50 mls/hr Q20H IV 01/04/19 20:00 02/02/19 19:59 01/07/19 02:00 Diphenhydramine HCl (Benadryl) 50 mg Q4H PRN ORAL Itching 01/04/19 20:00 01/26/19 19:59 Famotidine (Pepcid I.v.) 20 mg Q12HR IVP 01/04/19 21:00 02/02/19 08:59 01/07/19 08:33 Fat Emulsion Intravenous 216 ml/Amino Acids/ Electrolytes/ Dextrose 1,776 ml @ 74 mls/hr Q24H IV 01/04/19 20:00 01/29/19 19:59 01/06/19 20:28 Fentanyl (Duragesic) 1 patch Q72H TDERMAL 01/05/19 09:00 01/12/19 08:59 01/05/19 09:21 Fentanyl Citrate (Sublimaze 100 mcg/2 mL) 12.5 mcg Q2H PRN IV Breakthrough Pain 01/04/19 21:45 01/11/19 19:59 01/07/19 12:44 Fentanyl Citrate 1000 mcg/Sodium Chloride 100 ml @ 0 mls/hr Q24H IV 01/07/19 17:00 01/14/19 16:59 Hydralazine HCl (Apresoline) 10 mg Q4H PRN IV For High Blood Pressure 01/05/19 12:19 02/04/19 12:18 01/07/19 00:21 Insulin Aspart (NovoLOG) Q6HR SUBQ 01/05/19 00:00 01/21/19 17:59 01/07/19 11:54 Levothyroxine Sodium (Synthroid) 100 mcg DAILY IV 01/05/19 09:00 02/04/19 08:59 01/07/19 08:45 Lidocaine (Lidoderm 5% PATCH) 1 patch DAILY TDERMAL 01/04/19 19:00 02/03/19 18:29 01/07/19 08:39 Lidocaine (Lidoderm 5% PATCH) 1 patch DAILY TDERMAL 01/04/19 19:00 02/03/19 18:29 01/07/19 08:40 Lisinopril (Prinivil) 40 mg DAILY ORAL 01/05/19 09:00 01/30/19 08:59 01/07/19 08:36 Meropenem 1 gm/ Sodium Chloride 100 ml @ 200 mls/hr Q12HR@0200,1400 IVPB 01/06/19 14:00 01/11/19 13:59 01/07/19 01:50 Metoprolol Succinate (Toprol XL) 25 mg DAILY ORAL 01/05/19 09:00 01/23/19 08:59 01/07/19 08:37 Micafungin Sodium 100 mg/Sodium Chloride 110 ml @ 110 mls/hr Q24H IVPB 01/04/19 20:00 01/10/19 19:59 01/06/19 20:26 Miscellaneous Medication (fentaNYL Destruction) 1 ea Q72H MISC 01/05/19 08:59 02/04/19 08:58 01/05/19 09:24 Mycophenolate Mofetil (Cellcept) 750 mg Q12HR ORAL 01/04/19 21:00 01/24/19 08:59 01/07/19 08:35 Naloxone HCl (Narcan) 0.1 mg PRN IV Sedation scale 3 or 4 01/04/19 19:00 02/03/19 13:44 Ondansetron HCl (Zofran) 4 mg Q6H PRN IVP Nausea & Vomiting 01/04/19 19:15 01/20/19 07:14 01/06/19 02:36 Pantoprazole (Protonix) 40 mg DAILY IVP 01/05/19 09:00 01/25/19 08:59 01/07/19 08:34 Prochlorperazine (Compazine) 10 mg Q6H PRN IVP Nausea & Vomiting 01/04/19 20:00 01/19/19 19:59 01/07/19 08:33 Tacrolimus (Prograf) 1 mg DAILY ORAL 01/05/19 09:00 02/04/19 08:59 01/07/19 08:35 Tacrolimus (Prograf) 2 mg BEDTIME ORAL 01/04/19 21:00 01/16/19 20:59 01/06/19 21:21 Trazodone HCl (Desyrel) 25 mg HSPRN PRN ORAL INSOMNIA 01/04/19 20:00 02/03/19 19:59 01/05/19 03:02 Vancomycin HCl (Vanco rx to dose) 1 ea DAILY PRN MISC Per rx protocol 01/06/19 12:15 02/05/19 12:14 Vancomycin HCl 500 mg/Dextrose 110 ml @ 110 mls/hr Q12HR@0300,1500 IVPB 01/06/19 15:00 01/11/19 14:59 01/07/19 16:33 Philly Shelby MD Jan 07, 2019 17:17
--- NOTE | 2019-01-07 17:45 | NUR ---
NURSE NOTES: SBP consistently in 170's, hydralazine IVP given as per ordered.
--- NOTE | 2019-01-07 18:04 | Diagnostic Imaging Report ---
Indication: Dyspnea Comparison: 01/07/2019 A single view chest radiograph was obtained. Findings: There is an endotracheal tube present projected over the trachea in good position about 4 cm above the sonam. Central venous catheter and PICC line appear stable. Cardiomegaly is stable. IMPRESSION: Endotracheal tube in good position
--- NOTE | 2019-01-07 18:12 | NUR ---
NURSE NOTES: Patient is more awake, able to wiggle toes on command and shake head slightly for yes or no but still very drowsy. Started Fentanyl drip to keep RASS -2.
--- NOTE | 2019-01-07 19:30 | Operative Note - Dictated ---
DATE OF OPERATION: 01/07/2019 SURGEON: Lars Sotomayor M.D. HOUSE [employer]URNISHINGS SUPERVISOR SURGEON: Kvng Sanchez M.D. ANESTHESIOLOGIST: Lalo Martin M.D. TYPE OF ANESTHESIA: General endotracheal. PREOPERATIVE DIAGNOSES: 1. Postoperative intestinal leak with a prior anastomosis dehiscence. 2. History of ulcerative colitis. 3. History of primary sclerosing cholangitis. 4. Status post multiple abdominal operations. 4.1. Appendectomy in 1965. 4.2. Proctocolectomy and Kock pouch 1978. 4.3. Total abdominal hysterectomy and bilateral salpingo-oophorectomy 1983 4.4. Cholecystectomy in 1985. 4.5. Orthotopic liver transplantation 1999. 4.6. Revision of Kock pouch and repair of fistula with finding of small contracted pouch 2010. 4.7. Resection of failed Kock pouch with enteroenterostomy and creation of Yajaira ileostomy December 18, 2018. 4.8. Exploratory laparotomy with segmental small bowel resections for ischemic obstruction and relocation of ileostomy to right lower quadrant for retracted stoma January 04, 2019. POSTOPERATIVE DIAGNOSES: 1. Postoperative intestinal leak with a prior anastomosis dehiscence. 2. History of ulcerative colitis. 3. History of primary sclerosing cholangitis. 4. Status post multiple abdominal operations. 4.1. Appendectomy in 1965. 4.2. Proctocolectomy and Kock pouch 1978. 4.3. Total abdominal hysterectomy and bilateral salpingo-oophorectomy 1983 4.4. Cholecystectomy in 1985. 4.5. Orthotopic liver transplantation 1999. 4.6. Revision of Kock pouch and repair of fistula with finding of small contracted pouch 2010. 4.7. Resection of failed Kock pouch with enteroenterostomy and creation of Yajaira ileostomy December 18, 2018. 4.8. Exploratory laparotomy with segmental small bowel resections for ischemic obstruction and relocation of ileostomy to right lower quadrant for retracted stoma January 04, 2019. OPERATION PERFORMED: Laparotomy with repair of staple line dehiscence and wound VAC closure of abdomen. DESCRIPTION OF PROCEDURE: The patient was taken to the operating room and under general anesthesia was prepped and draped in usual fashion. [place] removed and prior PDS suture cut, the abdomen opened. The loop of bowel in the pelvis with the prior stapled anastomosis was obviously leaking with failure of part of the staple line. This was repaired in 2 layers with running 3-0 Vicryl. There were no other areas of small bowel extravasation. The field was copiously irrigated and debrided. The ileostomy in the right side was pink and well formed. The gastrostomy tube in the left upper quadrant was left undisturbed. A wound VAC was placed connected to 100 pressure setting with scheduled removal in 48 hours with delayed closure of the abdominal wall. The patient tolerated the procedure well and left the operating room stable but still in critical condition . Lars Sotomayor M.D. DR: Tom JOB#: [id number] CC: BRENDEN
--- NOTE | 2019-01-07 19:30 | NUR ---
NURSE NOTES: Recvd.on a vent.orally intubated.S/P Ex-Lap.repair of wound dehiscense application of wound vac.Sedated on fentanyl drip but esily arousable able to follows simple command,anxious and apprehensive.Re-assured.Made comfortable.Suctioned.NPO IV Thera.in progress.G-Tube intact to drainage via gravity.Ileostomy with very minimal serous drain.F/Cath Patent See I/O.
--- NOTE | 2019-01-07 19:32 | NUR ---
NURSE NOTES: Patient's face reddened and flushed, asked if patient is in pain, said yes. Patient nodded yes for nausea, Compazine given IVP. Fentanyl increased to meet RASS -2. BP decreased to 143/53
--- NOTE | 2019-01-07 19:34 | NUR ---
HAND-OFF: Report given to PATRICK Keyes.
--- NOTE | 2019-01-07 19:37 | NUR ---
NURSE NOTES: Called and spoke with MD Germain in regards to post op ABG. MD ordered one amp bicarb and ABG in the morning. Orders read back and confirmed by .
[2019-01-07] MEDS ORDERED: Sodium Bicarbonate 50ml Carp IV SCH (19:45)
--- NOTE | 2019-01-07 19:45 | Consultation ---
DATE OF CONSULTATION: 01/07/2019 PULMONARY CONSULTATION HISTORY OF PRESENT ILLNESS: This is a 68-year-old woman is seen in the ICU for ventilator management following surgery today. She was admitted several weeks ago with malfunctioning Kock pouch which was placed many years ago after a proctocolectomy for ulcerative colitis. She was admitted on this occasion and has undergone repair of the pouch, which was complicated by problems with adhesions and intestinal leakage and bladder injury all of which were repaired. Most recently, today she had a laparotomy and her wound was left open for drainage. She was left intubated with plans to take her back to the operating room in two days. Dr. Sotomayor asked me to manage her ventilator while she remains intubated. She can provide no additional history. There is no history of any pulmonary disorder recorded. PAST MEDICAL HISTORY: The patient has had ulcerative colitis and a proctocolectomy as noted above. In addition, she has a history of cirrhosis and liver transplant. She has developed hypertension while in the hospital here, which is managed by Dr. Ziegler. She has had leukocytosis, but no signs of sepsis. MEDICATIONS: Reviewed. ALLERGIES: Codeine, hydromorphone, metoclopramide, morphine, sulfonamide antibiotics. REVIEW OF SYSTEMS: Cannot be obtained. PHYSICAL EXAMINATION: GENERAL: The patient is sedated and on the ventilator with an orotracheal tube in place. VITAL SIGNS: Temperature was low following surgery, earlier it was normal with a maximum temperature of 99.6 in the last few days. The heart rate is about 100 and sinus rhythm to sinus tachycardia. Blood pressure is controlled 138/66 at this time and respirations controlled at 18. SKIN: Warm and dry. HEENT: Head is normocephalic. There is an orotracheal tube in the mouth. NECK: No jugular venous distention. CHEST: Clear. CARDIAC: Rhythm is regular without murmur or gallop. ABDOMEN: Soft with surgical dressings and a wound vacuum in place. EXTREMITIES: No clubbing, cyanosis, or edema. The feet are warm. LABORATORY AND DIAGNOSTIC DATA: Chest x-ray is clear. There is no post intubation x-ray done yet. Laboratory studies are reviewed and show significant [place] [address], hemoglobin is 8.3. Chemistry shows creatinine 1.1, blood sugar 252. Liver enzymes are mildly elevated. Albumin is low at 1.8. IMPRESSIONS: 1. Postoperative respiratory failure. 2. Status post multiple abdominal surgeries for perforated viscus following repair of a Kock pouch. 3. Status post liver transplant on immunosuppressive agents. 4. Hypertension. 5. Hyperglycemia 6. Anemia. 7. Severe protein-calorie malnutrition. PLAN: The patient will be maintained on ventilator support. We will check arterial blood gas. DVT prophylaxis is in place with sequential compression devices. I will be following her closely with you in the intensive care unit Thank you. Vamsi Germain M.D. DR: Arsenio JOB#: [id number] CC: Lars Sotomayor M.D.; Fax#: [phone] RAMIRO ZIEGLER M.D. ; FAX#: [phone] VAMSI GERMAIN M.D.; FAX#: [phone]
[2019-01-07] MEDS: Dyna-Hex 2% Top Sol 2oz TOPIC SCH (20:21)
[2019-01-07] MEDS: Fat Emulsion Iv 20% 216 ML in Tpn 1,560 ML IV SCH (20:28)
[2019-01-07] MEDS: Micafungin 100 MG in NS 110 ML IVPB SCH (20:29)
--- NOTE | 2019-01-07 22:00 | NUR ---
NURSE NOTES: HS care rendered.Pos.chg.Kept clean dry and comfortable.Suctioned.Due meds admin.See V/S.B/P drops.Fentanyl drip rate dec.to 50mcg/hr.Closely monitored.
[2019-01-08] VITALS (52 sets, daily range): BP systolic 91–169; BP diastolic 49–126
--- NOTE | 2019-01-08 00:10 | NUR ---
NURSE NOTES: See V/S.Scope rhythm same.More awake occ. Restless and apprehensive.Suctioned.Fentanyl drip rate back to 100mcg/hr.Cont.to Re-assured.Sat.-100%.Cont.Plan of care.
[2019-01-08] MEDS: NovoLOG Insulin Flexpen SUBQ SCH ×5 (00:12→23:45)
[2019-01-08] MEDS: D5 1/2NS w/KCl 40meq 1000ml 1,000 ML IV SCH ×2 (00:40→21:18)
--- NOTE | 2019-01-08 02:00 | NUR ---
NURSE NOTES: Pos. chg.Suctioned.Cheng.vent settings.Getting more restless stated more inc.pain on post-op site.Fentanyl dose inc.back to 100mcg/hr.
[2019-01-08] MEDS: Vancomycin 500mg/D5W 110ml IVPB SCH ×4 (03:25→15:18)
--- NOTE | 2019-01-08 04:20 | NUR ---
NURSE NOTES: Blood drawn for cbc/bmp.Eduardo tr-14.2.See Message from [email or web address] to give existing dose.Carlos Corcoran chg.
[2019-01-08 05:19] LABS: HEMATOCRIT 29.6 % (37.0-47.0); HEMOGLOBIN 9.6 G/DL (12.0-16.0); MEAN CORPUSCULAR VOLUME 93 FL (80-99); PLATELET COUNT 499 K/UL (150-450); RED BLOOD COUNT 3.16 M/UL (4.20-5.40); RED CELL DISTRIBUTION WIDTH 13.5 % (11.6-14.8)
[2019-01-08 05:25] LABS: WHITE BLOOD COUNT 23.1 K/UL (4.8-10.8)
[2019-01-08 06:20] LABS: ALANINE AMINOTRANSFERASE 21 U/L (12-78); ALBUMIN 1.6 G/DL (3.4-5.0); ALBUMIN/GLOBULIN RATIO 0.4 (1.0-2.7); ALKALINE PHOSPHATASE 278 U/L (46-116); ANION GAP 9 mmol/L (5-15); ASPARTATE AMINO TRANSFERASE 13 U/L (15-37); BILIRUBIN,TOTAL 0.3 MG/DL (0.2-1.0); BLOOD UREA NITROGEN 28 mg/dL (7-18); CALCIUM 9.9 MG/DL (8.5-10.1); CARBON DIOXIDE 23 MMOL/L (21-32); CHLORIDE 108 MMOL/L (98-107); CREATININE 1.1 MG/DL (0.55-1.30); POTASSIUM 4.5 MMOL/L (3.5-5.1); SODIUM 140 MMOL/L (136-145)
--- NOTE | 2019-01-08 06:50 | NUR ---
RESPIRATORY NOTE: Patient received mechanically ventilated on PB840 with current ordered vent settings. Patient is orally intubated with ETT size 7.0 with 20cm at the lip line that is secured with a commercial holster. Vent alarms are functional and audible. There is an ambu bag available at the bedside and the vent is connected to a red outlet. Patient appears comfortable at this time. Will continue to monitor.
--- NOTE | 2019-01-08 07:35 | NUR ---
HAND-OFF: Report given to PATRICK DE LA CRUZ.
--- NOTE | 2019-01-08 07:36 | NUR ---
NURSE NOTES: RECEIVED PATIENT FROM Jaren MATHEWS RN. PATIENT IS LYING IN BED, AWAKE, ALERT AND RESPONSIVE. HOOKED TO [place] OF E[place]. HR OF 93, SINUS RHYTHM. DENIES ANY PAIN OF THE MOMENT. ORALLY INTUBATED ETT 7.0 AT 20CM LIP LINE. VENT SETTINGS AC 12, TV 450, FiO2 40%, PEEP 5. NO SIGNS OF CARDIO OR RESPI DISTRESS OF THE MOMENT. KEPT ON NPO. GT CONNECTED TO BAG BY GRAVITY. NOTED YELLOWISH DISCHARGE. DO CONNECTED TO BAG, PATENT AND DRAINING YELLOW URINE. ILEOSTOMY NOTED ON RLQ WITH SCANT OF DARK GREEN DISCHARGE. SURGICAL SITE, DRY AND INTACT WITH HEMOVAC DRAINING REDDISH DISCHARGE. NOTED R IJ TLC AND L UA PICC LINE, DRESSING DRY AND INTACT. WITH TPN RUNNING AT 74ML/HR AND FENTANYL AT 150MCG/HR FOLLOWING HOSPITAL PROTOCOL AND IVF D5 1/2 NS + 40MEQS KCL AT 50ML/HR. CALL LIGHT WITHIN REACH. BED AT LOWEST POSITION. SIDE RAILS UP. WILL CONTINUE TO MONITOR.
--- NOTE | 2019-01-08 08:08 | NUR ---
NURSE NOTES: PATIENT SEEN SUCTIONED HERSELF AND SELF-REPOSITIONED. FOR ABG TODAY. WILL CONTINUE TO MONITOR.
[2019-01-08] MEDS: Metoprolol Succinate XL 25mg tab ORAL SCH (08:55)
[2019-01-08] MEDS: Lisinopril 20mg tab ORAL SCH (08:56)
[2019-01-08] MEDS: Mycophenolate 250mg cap ORAL SCH ×2 (08:57→20:06)
[2019-01-08] MEDS: Pantoprazole Inj IVP SCH (08:58)
--- NOTE | 2019-01-08 09:18 | NUR ---
NURSE NOTES: DR BENTLEY INFORMED OF ABG RESULT. DECREASED FiO2 TO 30%. WILL CONTINUE TO MONITOR.
--- NOTE | 2019-01-08 11:15 | NUR ---
NURSE NOTES: INCREASED FENTANYL TO 200MCG/HR. NO SIGNS OF DISTRESS OF THE MOMENT. WILL CONTINUE TO MONITOR.
--- NOTE | 2019-01-08 11:45 | NUR ---
NURSE NOTES: PT REFUSED TO SEND HER BELONGINGS TO SAFE.
--- NOTE | 2019-01-08 12:33 | NUR ---
NURSE NOTES: SEEN AT THE BEDSIDE.
--- NOTE | 2019-01-08 13:05 | General Progress Note ---
Assessment/Plan Status: progressing Assessment/Plan: fu LFTs>>> stable now on TPN cellcept 750 BID prograft 3 gm per day monitor for Lyte protonix will fu labs ICU care fu surg recs abx per ID will fu meds per GT Subjective Allergies: Coded Allergies: CODEINE (Verified Allergy, Severe, 12/17/18) Face contractions HYDROMORPHONE (Verified Allergy, Severe, Itching, 12/17/18) Itching whole body METOCLOPRAMIDE (Verified Allergy, Severe, 12/17/18) Face contractions MORPHINE (Verified Allergy, Severe, Shortness of Breath, 12/17/18) SULFA (SULFONAMIDE ANTIBIOTICS) (Verified Allergy, Severe, 12/17/18) Face contractions Subjective abd pain sleeping Objective Last 24 Hour Vital Signs Date Time Temp Pulse Resp B/P (MAP) Pulse Ox O2 Delivery O2 Flow Rate FiO2 01/08/19 12:45 99 20 30 01/08/19 12:34 99 19 141/71 (94) 99 01/08/19 12:00 Mechanical Ventilator 01/08/19 12:00 94 01/08/19 12:00 19 Mechanical Ventilator 30 01/08/19 12:00 98.7 99 19 141/71 (94) 99 01/08/19 11:46 17 Mechanical Ventilator 30 01/08/19 11:45 17 Mechanical Ventilator 30 01/08/19 11:45 94 19 126/57 (80) 99 01/08/19 11:30 100 19 126/57 (80) 99 01/08/19 11:15 99 21 130/56 (80) 99 01/08/19 11:08 101 18 30 01/08/19 11:00 106 21 137/60 (85) 99 01/08/19 11:00 21 Mechanical Ventilator 30 01/08/19 10:30 103 21 137/60 (85) 99 01/08/19 10:00 102 22 137/60 (85) 99 01/08/19 10:00 22 Mechanical Ventilator 30 01/08/19 09:30 94 16 137/60 (85) 100 01/08/19 09:00 18 Mechanical Ventilator 30 01/08/19 09:00 97 18 150/60 (90) 100 01/08/19 08:56 123/78 01/08/19 08:56 93 123/78 01/08/19 08:55 93 123/78 01/08/19 08:49 30 01/08/19 08:49 98 20 40 01/08/19 08:45 30 01/08/19 08:30 93 14 123/78 (93) 100 01/08/19 08:00 Mechanical Ventilator 01/08/19 08:00 93 01/08/19 08:00 23 Mechanical Ventilator 40 01/08/19 08:00 98.8 93 14 123/78 (93) 100 01/08/19 08:00 40 01/08/19 07:30 96 17 158/73 (101) 01/08/19 07:00 94 19 169/94 (119) 100 01/08/19 07:00 17 Mechanical Ventilator 40 01/08/19 06:45 99 18 40 01/08/19 06:00 19 Mechanical Ventilator 40 01/08/19 06:00 96 19 146/69 (94) 100 01/08/19 05:30 96 19 142/66 (91) 100 01/08/19 05:15 96 20 40 01/08/19 05:00 16 Mechanical Ventilator 40 01/08/19 05:00 88 18 140/69 (92) 100 01/08/19 04:30 93 15 137/71 (93) 100 01/08/19 04:16 98.8 01/08/19 04:00 40 01/08/19 04:00 Mechanical Ventilator 01/08/19 04:00 92 01/08/19 04:00 98.8 92 16 133/66 (88) 100 01/08/19 04:00 17 Mechanical Ventilator 40 01/08/19 03:46 16 Mechanical Ventilator 40 01/08/19 03:21 92 17 40 01/08/19 03:00 97 17 125/69 (87) 100 01/08/19 03:00 17 Mechanical Ventilator 40 01/08/19 02:30 97 17 147/61 (89) 100 01/08/19 02:00 99 16 132/56 (81) 100 01/08/19 02:00 16 Mechanical Ventilator 40 01/08/19 01:30 100 14 134/58 (83) 100 01/08/19 01:20 101 21 40 01/08/19 01:00 16 Mechanical Ventilator 40 01/08/19 01:00 98 14 137/60 (85) 100 01/08/19 00:30 98 14 137/66 (89) 100 01/08/19 00:00 98.9 96 16 146/62 (90) 100 01/08/19 00:00 40 01/08/19 00:00 16 Mechanical Ventilator 40 01/08/19 00:00 96 01/08/19 00:00 Mechanical Ventilator 01/07/19 23:30 92 16 125/59 (81) 100 01/07/19 23:05 92 18 40 01/07/19 23:00 82 16 92/48 (63) 100 01/07/19 23:00 16 Mechanical Ventilator 40 01/07/19 22:30 84 16 95/46 (62) 100 01/07/19 22:00 87 17 97/44 (61) 99 01/07/19 22:00 17 Mechanical Ventilator 40 01/07/19 22:00 17 Mechanical Ventilator 40 01/07/19 21:33 91 21 40 01/07/19 21:30 91 16 128/58 (81) 100 01/07/19 21:00 92 18 98/44 (62) 100 01/07/19 21:00 17 Mechanical Ventilator 40 01/07/19 21:00 17 Mechanical Ventilator 40 01/07/19 20:30 105 19 116/50 (72) 99 01/07/19 20:00 108 01/07/19 20:00 40 01/07/19 20:00 99.2 108 18 110/61 (77) 98 01/07/19 20:00 18 Mechanical Ventilator 40 01/07/19 20:00 18 Mechanical Ventilator 40 01/07/19 20:00 Mechanical Ventilator 01/07/19 19:30 113 19 123/55 (77) 99 01/07/19 19:26 114 20 40 01/07/19 19:00 116 18 127/60 (82) 100 01/07/19 19:00 18 Mechanical Ventilator 40 01/07/19 18:36 185/71 01/07/19 18:00 20 Mechanical Ventilator 40 01/07/19 18:00 107 18 174/69 (104) 100 01/07/19 17:29 18 Mechanical Ventilator 40 19 17:27 107 185/71 18/19 17:05 101 12 50 01/07/19 17:00 98.8 109 20 178/72 (107) 100 01/07/19 16:19 98 18 50 01/07/19 16:17 98 18 100 Mechanical Ventilator 50 01/07/19 16:16 73 20 100 01/07/19 16:00 107 01/07/19 16:00 Mechanical Ventilator 01/07/19 16:00 100 18 138/66 (90) 100 01/07/19 13:14 89.9 Intake and Output 01/07/19 01/08/19 19:00 07:00 Intake Total 1341 ml 2107 ml Output Total 2150 ml 1655 ml Balance -809 ml 452 ml Intake Oral 25 ml 0 ml IV Total 1256 ml 2107 ml Other 60 ml Output Urine Total 1600 ml 680 ml Drainage Total 50 ml 175 ml Other 500 ml 800 ml # Bowel Movements 5 Laboratory Tests 01/07/19 18:00: Arterial Blood pH 7.290L, Arterial Blood Partial Pressure CO2 39.8, Arterial Blood Partial Pressure O2 121.6H, Arterial Blood HCO3 18.7L, Arterial Blood Oxygen Saturation 98.2, Arterial Blood Base Excess -7.3L, Remington Test Positive 01/08/19 02:00: Vancomycin Level Trough 14.2H 01/08/19 05:00: White Blood Count 23.1*H, Red Blood Count 3.16L, Hemoglobin 9.6L, Hematocrit 29.6L, Mean Corpuscular Volume 93, Mean Corpuscular Hemoglobin 30.3, Mean Corpuscular Hemoglobin Concent 32.5, Red Cell Distribution Width 13.5, Platelet Count 499H, Mean Platelet Volume 5.5L, Neutrophils (%) (Auto) , Lymphocytes (%) (Auto) , Monocytes (%) (Auto) , Eosinophils (%) (Auto) , Basophils (%) (Auto) , Differential Total Cells Counted 100, Neutrophils % (Manual) 92H, Lymphocytes % (Manual) 3L, Monocytes % (Manual) 5, Eosinophils % (Manual) 0, Basophils % ( Manual) 0, Band Neutrophils 0, Platelet Estimate Adequate, Platelet Morphology Normal, Polychromasia 1+, Hypochromasia 1+, Sodium Level 140, Potassium Level 4.5, Chloride Level 108H, Carbon Dioxide Level 23, Anion Gap 9, Blood Urea Nitrogen 28H, Creatinine 1.1, Estimat Glomerular Filtration Rate 49.6, Glucose Level 134#H, Calcium Level 9.9, Phosphorus Level 3.0, Magnesium Level 1.9, Total Bilirubin 0.3, Aspartate Amino Transf (AST/SGOT) 13L, Alanine Aminotransferase (ALT/SGPT) 21, Alkaline Phosphatase 278H, Total Protein 5.8L, Albumin 1.6L, Globulin 4.2, Albumin/Globulin Ratio 0.4L 01/08/19 08:22: Arterial Blood pH 7.424, Arterial Blood Partial Pressure CO2 34.0L, Arterial Blood Partial Pressure O2 141.6H, Arterial Blood HCO3 21.8L, Arterial Blood Oxygen Saturation 98.5, Arterial Blood Base Excess -2.1L, Remington Test Positive Height (Feet): 5 Height (Inches): 4.00 Weight (Pounds): 150 General Appearance: alert EENT: normal ENT inspection Neck: supple Cardiovascular: normal rate Respiratory/Chest: decreased breath sounds Abdomen: hyperactive bowel sounds - surgical, hypoactive bowel sounds, other - GT in place Extremities: non-tender Max Dozier MD Jan 08, 2019 13:05
--- NOTE | 2019-01-08 13:28 | NUR ---
NURSE NOTES: SEEN AND EXAMINED BY DR DAHL.
--- NOTE | 2019-01-08 13:29 | Infectious Diseases Prog Note ---
Assessment/Plan Assessment/Plan ASSESSMENT AND PLAN: 1. leukocytosis, fevers, ? sepsis, possible intra-abdominal infection/early sbo , s/p exploratory laparotomy and small bowel segmental resection, fungemia risk with hx of tpn and abx, + picc line s/p surgery for post-operative leak - 01/07/19 - antibiotics - vancomycin, meropenem and micafungin - f/u on surveillance cultures - consider change lines - f/u on blood cultures - monitor labs - icu care - operative notes reviewed - d/w RN 2. 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 3. Liver transplantation. 4. Sclerosing cholangitis. 5. Ulcerative colitis. 6. The patient is anemic. 7. History of cholecystectomy, appendectomy, hysterectomy, and proctocolectomy. 8. History of multiple abdominal operations. 9. Allergies to codeine, hydromorphone, metoclopramide, morphine, and sulfa. 10. Family doctor is Noncontributory. 11. Social history is negative. 12. MAR was noted. 13. Case discussed with RN. 14. Case discussed with the patient. 15. Continue treatment per Dr. Sotomayor and consultants. Subjective Constitutional: Reports: other - on vent ; Denies: fever HEENT: Reports: congestion Respiratory: Reports: shortness of breath Cardiovascular: Denies: chest pain Gastrointestinal/Abdominal: Reports: other - + ileostomy ; Denies: nausea, vomiting Allergies: Coded Allergies: CODEINE (Verified Allergy, Severe, 12/17/18) Face contractions HYDROMORPHONE (Verified Allergy, Severe, Itching, 12/17/18) Itching whole body METOCLOPRAMIDE (Verified Allergy, Severe, 12/17/18) Face contractions MORPHINE (Verified Allergy, Severe, Shortness of Breath, 12/17/18) SULFA (SULFONAMIDE ANTIBIOTICS) (Verified Allergy, Severe, 12/17/18) Face contractions Objective Vital Signs Last 24 Hour Vital Signs Date Time Temp Pulse Resp B/P (MAP) Pulse Ox O2 Delivery O2 Flow Rate FiO2 01/08/19 13:00 105 21 148/126 (133) 99 01/08/19 12:45 99 20 30 01/08/19 12:34 99 19 141/71 (94) 99 01/08/19 12:00 Mechanical Ventilator 01/08/19 12:00 94 01/08/19 12:00 19 Mechanical Ventilator 30 01/08/19 12:00 98.7 99 19 141/71 (94) 99 01/08/19 11:46 17 Mechanical Ventilator 30 01/08/19 11:45 17 Mechanical Ventilator 30 01/08/19 11:45 94 19 126/57 (80) 99 01/08/19 11:30 100 19 126/57 (80) 99 01/08/19 11:15 99 21 130/56 (80) 99 01/08/19 11:08 101 18 30 01/08/19 11:00 106 21 137/60 (85) 99 01/08/19 11:00 21 Mechanical Ventilator 30 01/08/19 10:30 103 21 137/60 (85) 99 01/08/19 10:00 102 22 137/60 (85) 99 01/08/19 10:00 22 Mechanical Ventilator 30 01/08/19 09:30 94 16 137/60 (85) 100 01/08/19 09:00 18 Mechanical Ventilator 30 01/08/19 09:00 97 18 150/60 (90) 100 01/08/19 08:56 123/78 01/08/19 08:56 93 123/78 01/08/19 08:55 93 123/78 01/08/19 08:49 30 01/08/19 08:49 98 20 40 01/08/19 08:45 30 01/08/19 08:30 93 14 123/78 (93) 100 01/08/19 08:00 Mechanical Ventilator 01/08/19 08:00 93 01/08/19 08:00 23 Mechanical Ventilator 40 01/08/19 08:00 98.8 93 14 123/78 (93) 100 01/08/19 08:00 40 01/08/19 07:30 96 17 158/73 (101) 01/08/19 07:00 94 19 169/94 (119) 100 01/08/19 07:00 17 Mechanical Ventilator 40 01/08/19 06:45 99 18 40 01/08/19 06:00 19 Mechanical Ventilator 40 01/08/19 06:00 96 19 146/69 (94) 100 01/08/19 05:30 96 19 142/66 (91) 100 01/08/19 05:15 96 20 40 01/08/19 05:00 16 Mechanical Ventilator 40 01/08/19 05:00 88 18 140/69 (92) 100 01/08/19 04:30 93 15 137/71 (93) 100 01/08/19 04:16 98.8 01/08/19 04:00 40 01/08/19 04:00 Mechanical Ventilator 01/08/19 04:00 92 01/08/19 04:00 98.8 92 16 133/66 (88) 100 01/08/19 04:00 17 Mechanical Ventilator 40 01/08/19 03:46 16 Mechanical Ventilator 40 01/08/19 03:21 92 17 40 01/08/19 03:00 97 17 125/69 (87) 100 01/08/19 03:00 17 Mechanical Ventilator 40 01/08/19 02:30 97 17 147/61 (89) 100 01/08/19 02:00 99 16 132/56 (81) 100 01/08/19 02:00 16 Mechanical Ventilator 40 01/08/19 01:30 100 14 134/58 (83) 100 01/08/19 01:20 101 21 40 01/08/19 01:00 16 Mechanical Ventilator 40 01/08/19 01:00 98 14 137/60 (85) 100 01/08/19 00:30 98 14 137/66 (89) 100 01/08/19 00:00 98.9 96 16 146/62 (90) 100 01/08/19 00:00 40 01/08/19 00:00 16 Mechanical Ventilator 40 01/08/19 00:00 96 01/08/19 00:00 Mechanical Ventilator 01/07/19 23:30 92 16 125/59 (81) 100 01/07/19 23:05 92 18 40 01/07/19 23:00 82 16 92/48 (63) 100 01/07/19 23:00 16 Mechanical Ventilator 40 01/07/19 22:30 84 16 95/46 (62) 100 01/07/19 22:00 87 17 97/44 (61) 99 01/07/19 22:00 17 Mechanical Ventilator 40 01/07/19 22:00 17 Mechanical Ventilator 40 01/07/19 21:33 91 21 40 01/07/19 21:30 91 16 128/58 (81) 100 01/07/19 21:00 92 18 98/44 (62) 100 01/07/19 21:00 17 Mechanical Ventilator 40 01/07/19 21:00 17 Mechanical Ventilator 40 01/07/19 20:30 105 19 116/50 (72) 99 01/07/19 20:00 108 01/07/19 20:00 40 01/07/19 20:00 99.2 108 18 110/61 (77) 98 01/07/19 20:00 18 Mechanical Ventilator 40 01/07/19 20:00 18 Mechanical Ventilator 40 01/07/19 20:00 Mechanical Ventilator 01/07/19 19:30 113 19 123/55 (77) 99 01/07/19 19:26 114 20 40 01/07/19 19:00 116 18 127/60 (82) 100 01/07/19 19:00 18 Mechanical Ventilator 40 01/07/19 18:36 185/71 01/07/19 18:00 20 Mechanical Ventilator 40 01/07/19 18:00 107 18 174/69 (104) 100 01/07/19 17:29 18 Mechanical Ventilator 40 01/07/19 17:27 107 185/71 01/07/19 17:05 101 12 50 01/07/19 17:00 98.8 109 20 178/72 (107) 100 01/07/19 16:19 98 18 50 01/07/19 16:17 98 18 100 Mechanical Ventilator 50 01/07/19 16:16 73 20 100 01/07/19 16:00 107 01/07/19 16:00 Mechanical Ventilator 01/07/19 16:00 100 18 138/66 (90) 100 Height (Feet): 5 Height (Inches): 4.00 Weight (Pounds): 150 General Appearance: other - on vent, responsive HEENT: normocephalic, atraumatic, anicteric Respiratory/Chest: crackles/rales, rhonchi - bilaterally Cardiovascular: normal rate, regular rhythm Abdomen: normal bowel sounds, soft, non tender, no organomegaly Objective CT scan abdomen and pelvis: IMPRESSION: Status post recent abdominal surgery with creation of a left lower quadrant Yajaira ileostomy. Good bowel and bag opacification with no evidence of bowel obstruction. Unusual, markedly distended unopacified loop of bowel in the pelvis. Although unopacified, this does not appear to be an abscess as there is a wall and other characteristics more in keeping with bowel. Would consider a large diverticulum or possibly remnant of the previous Kock pouch or part of the small bowel leading to the old pouch as those segments are sometimes quite distended. Status post liver transplant. Status post cholecystectomy. Mild basal atelectasis. Chest x-ray - no pna, report noted CT abdomen/pelvis - 12/30/18 - Impression: Postsurgical changes, as described Unusual tubular structure filled mostly with gas but also some fluid communicating with the small bowel at the site of a right lower quadrant enteroenterostomy. Uncertain as to whether this represents an unusual large diverticulum, a true extraluminal gas collection, or a portion of an old continent ileostomy pouch. This is also previously described Dilated proximal small bowel proximal to the enteroenterostomy with slow forward propulsion of contents. Partial small bowel obstruction not completely excludable although unlikely given evidence of forward propulsion of contrast and filling of the ileostomy on prior 12/26/2018 exam; findings most likely functional in nature. Correlate with clinical findings Small anterior pelvic and deep pelvic fluid pockets, most likely represent retained postoperative fluid collections. Abscess as etiology of any of these not completely excludable; correlation with clinical findings recommended Postsurgical changes of the liver status post transplantation Punctate nonobstructing bilateral intrarenal calculi Bilateral basilar pulmonary parenchymal atelectasis and/or scarring Chest x-ray - 01/07/19 - Images previously reviewed in person with Dr. Sotomayor Interval placement of a right transjugular central line, catheter tip in the region of the high right atrium. Left arm PICC line remains in place with the catheter tip at the cavoatrial junction. No evidence of pneumothorax. No definite focal airspace consolidation or pleural effusion. Surgical clips noted projecting over the upper abdomen. Microbiology Date/Time Source Procedure Growth Status 01/07/19 04:15 Blood Blood Culture - Preliminary NO GROWTH AFTER 24 HOURS Resulted 01/06/19 12:55 Blood Blood Culture - Preliminary NO GROWTH AFTER 24 HOURS Resulted 01/06/19 12:55 Indwelling Cath Urine Culture - Preliminary NO GROWTH AFTER 24 HOURS Resulted 01/06/19 22:30 Abdominal Fluid Gram Stain - Final Resulted 01/06/19 22:30 Abdominal Fluid Body Fluid Culture - Preliminary NO GROWTH AFTER 24 HOURS Resulted Laboratory Tests Test 01/07/19 18:00 01/08/19 02:00 01/08/19 05:00 01/08/19 08:22 Arterial Blood pH 7.290 (7.350-7.450) 7.424 (7.350-7.450) Arterial Blood Partial Pressure CO2 39.8 mmHg (35.0-45.0) 34.0 mmHg (35.0-45.0) L Arterial Blood Partial Pressure O2 121.6 mmHg (75.0-100.0) H 141.6 mmHg (75.0-100.0) H Arterial Blood HCO3 18.7 mmol/L (22.0-26.0) L 21.8 mmol/L (22.0-26.0) L Arterial Blood Oxygen Saturation 98.2 % (95-100) 98.5 % (95-100) Arterial Blood Base Excess -7.3 (-2-2) L -2.1 (-2-2) L Remington Test Positive Positive Vancomycin Level Trough 14.2 ug/mL (5.0-12.0) H White Blood Count 23.1 K/UL (4.8-10.8) *H Red Blood Count 3.16 M/UL (4.20-5.40) L Hemoglobin 9.6 G/DL (12.0-16.0) L Hematocrit 29.6 % (37.0-47.0) L Mean Corpuscular Volume 93 FL (80-99) Mean Corpuscular Hemoglobin 30.3 PG (27.0-31.0) Mean Corpuscular Hemoglobin Concent 32.5 G/DL (32.0-36.0) Red Cell Distribution Width 13.5 % (11.6-14.8) Platelet Count 499 K/UL (150-450) H Mean Platelet Volume 5.5 FL (6.5-10.1) L Neutrophils (%) (Auto) % (45.0-75.0) Lymphocytes (%) (Auto) % (20.0-45.0) Monocytes (%) (Auto) % (1.0-10.0) Eosinophils (%) (Auto) % (0.0-3.0) Basophils (%) (Auto) % (0.0-2.0) Differential Total Cells Counted 100 Neutrophils % (Manual) 92 % (45-75) H Lymphocytes % (Manual) 3 % (20-45) L Monocytes % (Manual) 5 % (1-10) Eosinophils % (Manual) 0 % (0-3) Basophils % (Manual) 0 % (0-2) Band Neutrophils 0 % (0-8) Platelet Estimate Adequate Platelet Morphology Normal Polychromasia 1+ Hypochromasia 1+ Sodium Level 140 MMOL/L (136-145) Potassium Level 4.5 MMOL/L (3.5-5.1) Chloride Level 108 MMOL/L (98-107) H Carbon Dioxide Level 23 MMOL/L (21-32) Anion Gap 9 mmol/L (5-15) Blood Urea Nitrogen 28 mg/dL (7-18) H Creatinine 1.1 MG/DL (0.55-1.30) Estimat Glomerular Filtration Rate 49.6 mL/min (>60) Glucose Level 134 MG/DL (74-106) #H Calcium Level 9.9 MG/DL (8.5-10.1) Phosphorus Level 3.0 MG/DL (2.5-4.9) Magnesium Level 1.9 MG/DL (1.8-2.4) Total Bilirubin 0.3 MG/DL (0.2-1.0) Aspartate Amino Transf (AST/SGOT) 13 U/L (15-37) L Alanine Aminotransferase (ALT/SGPT) 21 U/L (12-78) Alkaline Phosphatase 278 U/L (46-116) H Total Protein 5.8 G/DL (6.4-8.2) L Albumin 1.6 G/DL (3.4-5.0) L Globulin 4.2 g/dL Albumin/Globulin Ratio 0.4 (1.0-2.7) L Current Medications Medications (Trade) Dose Ordered Sig/Kajal Route PRN Reason Start Time Stop Time Status Last Admin Dose Admin Acetaminophen (Tylenol) 650 mg Q4H PRN ORAL Mild Pain/Temp > 100.2 01/04/19 21:00 01/25/19 20:59 Acetaminophen (Tylenol) 650 mg Q6H PRN ORAL headache 01/04/19 20:45 01/16/19 14:44 Al Hydroxide/Mg Hydroxide (Mylanta) 30 ml Q6H PRN ORAL dyspepsia 01/04/19 21:30 01/27/19 09:29 Amlodipine Besylate (Norvasc) 5 mg BID ORAL 01/05/19 09:00 02/02/19 08:59 01/08/19 08:56 Chlorhexidine Gluconate (Yulia-Hex 2%) 1 applic DAILY@2000 TOPIC 01/04/19 20:00 01/16/19 19:59 01/07/19 20:21 Clonidine HCl (Catapres Tab) 0.1 mg Q6H PRN SL SBP>150 mmHg 01/04/19 22:00 01/21/19 21:59 01/05/19 11:56 Dextrose 1,000 ml @ 0 mls/hr Q24H PRN IV PN interrupted or unavailable 01/04/19 20:00 01/19/19 19:59 Dextrose (Dextrose 50%) 25 ml Q30M PRN IV Hypoglycemia 01/04/19 19:15 01/21/19 12:44 Dextrose (Dextrose 50%) 50 ml Q30M PRN IV Hypoglycemia 01/04/19 19:15 01/21/19 12:44 Dextrose/ Electrolytes 1,000 ml @ 50 mls/hr Q20H IV 01/04/19 20:00 02/02/19 19:59 01/08/19 00:40 Diphenhydramine HCl (Benadryl) 50 mg Q4H PRN ORAL Itching 01/04/19 20:00 01/26/19 19:59 Famotidine (Pepcid I.v.) 20 mg Q12HR IVP 01/04/19 21:00 02/02/19 08:59 01/08/19 08:58 Fat Emulsion Intravenous 216 ml/Amino Acids/ Electrolytes/ Dextrose 1,776 ml @ 74 mls/hr Q24H IV 01/04/19 20:00 01/29/19 19:59 01/07/19 20:28 Fentanyl Citrate 1000 mcg/Sodium Chloride 100 ml @ 0 mls/hr Q24H IV 01/07/19 17:00 01/14/19 16:59 01/08/19 11:46 Hydralazine HCl (Apresoline) 10 mg Q4H PRN IV For High Blood Pressure 01/05/19 12:19 02/04/19 12:18 01/07/19 18:36 Insulin Aspart (NovoLOG) Q6HR SUBQ 01/05/19 00:00 01/21/19 17:59 01/08/19 12:02 Levothyroxine Sodium (Synthroid) 100 mcg DAILY IV 01/05/19 09:00 02/04/19 08:59 01/08/19 10:51 Lidocaine (Lidoderm 5% PATCH) 1 patch DAILY TDERMAL 01/04/19 19:00 02/03/19 18:29 01/08/19 09:20 Lidocaine (Lidoderm 5% PATCH) 1 patch DAILY TDERMAL 01/04/19 19:00 02/03/19 18:29 01/08/19 09:21 Lisinopril (Prinivil) 40 mg DAILY ORAL 01/05/19 09:00 01/30/19 08:59 01/08/19 08:56 Meropenem 1 gm/ Sodium Chloride 100 ml @ 200 mls/hr Q8HR IVPB 01/07/19 18:00 01/12/19 17:59 01/08/19 05:50 Metoprolol Succinate (Toprol XL) 25 mg DAILY ORAL 01/05/19 09:00 01/23/19 08:59 01/08/19 08:55 Micafungin Sodium 100 mg/Sodium Chloride 110 ml @ 110 mls/hr Q24H IVPB 01/04/19 20:00 01/10/19 19:59 01/07/19 20:29 Mycophenolate Mofetil (Cellcept) 750 mg Q12HR ORAL 01/04/19 21:00 01/24/19 08:59 01/08/19 08:57 Naloxone HCl (Narcan) 0.1 mg PRN IV Sedation scale 3 or 4 01/04/19 19:00 02/03/19 13:44 Ondansetron HCl (Zofran) 4 mg Q6H PRN IVP Nausea & Vomiting 01/04/19 19:15 01/20/19 07:14 01/06/19 02:36 Pantoprazole (Protonix) 40 mg DAILY IVP 01/05/19 09:00 01/25/19 08:59 01/08/19 08:58 Prochlorperazine (Compazine) 10 mg Q6H PRN IVP Nausea & Vomiting 01/04/19 20:00 01/19/19 19:59 01/07/19 18:58 Tacrolimus (Prograf) 1 mg DAILY ORAL 01/05/19 09:00 02/04/19 08:59 01/08/19 08:56 Tacrolimus (Prograf) 2 mg BEDTIME ORAL 01/04/19 21:00 01/16/19 20:59 01/07/19 20:41 Trazodone HCl (Desyrel) 25 mg HSPRN PRN ORAL INSOMNIA 01/04/19 20:00 02/03/19 19:59 01/05/19 03:02 Vancomycin HCl (Vanco rx to dose) 1 ea DAILY PRN MISC Per rx protocol 01/06/19 12:15 02/05/19 12:14 Vancomycin HCl 500 mg/Dextrose 110 ml @ 110 mls/hr Q12HR@0300,1500 IVPB 01/06/19 15:00 01/11/19 14:59 01/08/19 03:25 Philly Shelby MD Jan 08, 2019 13:29
--- NOTE | 2019-01-08 13:55 | General Progress Note ---
Progress Note Progress Note AVSS On ventilator with fentanyl infusion - awake and alert and communicates by writing Abdomen soft, wound vac in place. Ileostomy with enteric fluid output now WBC 23,100 Hgb 9.6 Platelets 499,000 BUN 28 Cr 1.1 Phos and Mg wnl Albumin 1.6 Imp. Stable on ventilator with abd. wound vac Plan: Surgery in AM to remove wound vac and closure of abdominal wall, extubate off vent Lars Sotomayor MD Jan 08, 2019 13:55
--- NOTE | 2019-01-08 14:00 | NUR ---
NURSE NOTES: SEEN AND EXAMINED BY DR PRIEST. FOR SCHEDULED PROCEDURE TOMORROW. SIGNED THE CONSENT. TOLERATING VENT SETTINGS. STILL ON TPN AND FENTANYL DRIP FOLLOWING [facility]OSPITAL PROTOC[facility] AN[facility] SAME IVF RUNNING. WILL CONTINUE TO MONITOR.
--- NOTE | 2019-01-08 14:14 | Critical Care Progress Note ---
Assessment/Plan Status Narrative UC S/P multiple abdominal surgeries Intestinal leakage s/p laparotomy repair intestinal staple line dehiscence, apply wound vac HTN H/O Liver transplant Hypothyroidism Assessment/Plan ICU monitor IV Fluids TPN PO meds given by GT. Clonidine 0.1 mg Q6 h PRN- may increase as needed Hydralazine IV PRN Monitor I/Os Monitor labs. I/S Planned for surgery on Saturday Discussed with ICU Staff Critical Care - Subjective Interval Events: On Vent, Fentanyl drip. Alert and responsive. Pain controlled. Intubation Day: 2 Condition: improving IV Access: central EKG Rhythm: Sinus Tachycardia IV Fluids: D5 1/2 NS @ 50 Drips: TPN @ 74/h I&O: Intake and Output 01/07/19 01/08/19 19:00 07:00 Intake Total 1341 ml 2107 ml Output Total 2150 ml 1655 ml Balance -809 ml 452 ml Intake Oral 25 ml 0 ml IV Total 1256 ml 2107 ml Other 60 ml Output Urine Total 1600 ml 680 ml Drainage Total 50 ml 175 ml Other 500 ml 800 ml # Bowel Movements 5 Critical Care - Objective ET-Tube: 7.0 ET Position: 20 Last 24 Hour Vital Signs Date Time Temp Pulse Resp B/P (MAP) Pulse Ox O2 Delivery O2 Flow Rate FiO2 01/08/19 13:00 105 21 148/126 (133) 99 01/08/19 13:00 21 Mechanical Ventilator 30 01/08/19 12:45 99 20 30 01/08/19 12:34 99 19 141/71 (94) 99 01/08/19 12:00 Mechanical Ventilator 01/08/19 12:00 94 01/08/19 12:00 19 Mechanical Ventilator 30 01/08/19 12:00 98.7 99 19 141/71 (94) 99 01/08/19 11:46 17 Mechanical Ventilator 30 01/08/19 11:45 17 Mechanical Ventilator 30 01/08/19 11:45 94 19 126/57 (80) 99 01/08/19 11:30 100 19 126/57 (80) 99 01/08/19 11:15 99 21 130/56 (80) 99 01/08/19 11:08 101 18 30 01/08/19 11:00 106 21 137/60 (85) 99 01/08/19 11:00 21 Mechanical Ventilator 30 01/08/19 10:30 103 21 137/60 (85) 99 01/08/19 10:00 102 22 137/60 (85) 99 01/08/19 10:00 22 Mechanical Ventilator 30 01/08/19 09:30 94 16 137/60 (85) 100 01/08/19 09:00 18 Mechanical Ventilator 30 01/08/19 09:00 97 18 150/60 (90) 100 01/08/19 08:56 123/78 01/08/19 08:56 93 123/78 01/08/19 08:55 93 123/78 01/08/19 08:49 30 01/08/19 08:49 98 20 40 01/08/19 08:45 30 01/08/19 08:30 93 14 123/78 (93) 100 01/08/19 08:00 Mechanical Ventilator 01/08/19 08:00 93 01/08/19 08:00 23 Mechanical Ventilator 40 01/08/19 08:00 98.8 93 14 123/78 (93) 100 01/08/19 08:00 40 01/08/19 07:30 96 17 158/73 (101) 01/08/19 07:00 94 19 169/94 (119) 100 01/08/19 07:00 17 Mechanical Ventilator 40 01/08/19 06:45 99 18 40 01/08/19 06:00 19 Mechanical Ventilator 40 01/08/19 06:00 96 19 146/69 (94) 100 01/08/19 05:30 96 19 142/66 (91) 100 01/08/19 05:15 96 20 40 01/08/19 05:00 16 Mechanical Ventilator 40 01/08/19 05:00 88 18 140/69 (92) 100 01/08/19 04:30 93 15 137/71 (93) 100 01/08/19 04:16 98.8 01/08/19 04:00 40 01/08/19 04:00 Mechanical Ventilator 01/08/19 04:00 92 01/08/19 04:00 98.8 92 16 133/66 (88) 100 01/08/19 04:00 17 Mechanical Ventilator 40 01/08/19 03:46 16 Mechanical Ventilator 40 01/08/19 03:21 92 17 40 01/08/19 03:00 97 17 125/69 (87) 100 01/08/19 03:00 17 Mechanical Ventilator 40 01/08/19 02:30 97 17 147/61 (89) 100 01/08/19 02:00 99 16 132/56 (81) 100 01/08/19 02:00 16 Mechanical Ventilator 40 01/08/19 01:30 100 14 134/58 (83) 100 01/08/19 01:20 101 21 40 01/08/19 01:00 16 Mechanical Ventilator 40 01/08/19 01:00 98 14 137/60 (85) 100 01/08/19 00:30 98 14 137/66 (89) 100 01/08/19 00:00 98.9 96 16 146/62 (90) 100 01/08/19 00:00 40 01/08/19 00:00 16 Mechanical Ventilator 40 01/08/19 00:00 96 01/08/19 00:00 Mechanical Ventilator 01/07/19 23:30 92 16 125/59 (81) 100 01/07/19 23:05 92 18 40 01/07/19 23:00 82 16 92/48 (63) 100 01/07/19 23:00 16 Mechanical Ventilator 40 01/07/19 22:30 84 16 95/46 (62) 100 01/07/19 22:00 87 17 97/44 (61) 99 01/07/19 22:00 17 Mechanical Ventilator 40 01/07/19 22:00 17 Mechanical Ventilator 40 01/07/19 21:33 91 21 40 01/07/19 21:30 91 16 128/58 (81) 100 01/07/19 21:00 92 18 98/44 (62) 100 01/07/19 21:00 17 Mechanical Ventilator 40 01/07/19 21:00 17 Mechanical Ventilator 40 01/07/19 20:30 105 19 116/50 (72) 99 01/07/19 20:00 108 01/07/19 20:00 40 01/07/19 20:00 99.2 108 18 110/61 (77) 98 01/07/19 20:00 18 Mechanical Ventilator 40 01/07/19 20:00 18 Mechanical Ventilator 40 01/07/19 20:00 Mechanical Ventilator 01/07/19 19:30 113 19 123/55 (77) 99 01/07/19 19:26 114 20 40 01/07/19 19:00 116 18 127/60 (82) 100 01/07/19 19:00 18 Mechanical Ventilator 40 01/07/19 18:36 185/71 01/07/19 18:00 20 Mechanical Ventilator 40 01/07/19 18:00 107 18 174/69 (104) 100 01/07/19 17:29 18 Mechanical Ventilator 40 01/07/19 17:27 107 185/71 01/07/19 17:05 101 12 50 01/07/19 17:00 98.8 109 20 178/72 (107) 100 01/07/19 16:19 98 18 50 01/07/19 16:17 98 18 100 Mechanical Ventilator 50 01/07/19 16:16 73 20 100 01/07/19 16:00 107 01/07/19 16:00 Mechanical Ventilator 01/07/19 16:00 100 18 138/66 (90) 100 Status: awake, alert Lungs: clear Heart: normal rate, tachycardia Abdomen: soft, absent bowel sounds Extremities: no C/C/E Micro: Microbiology Date/Time Source Procedure Growth Status 01/07/19 04:15 Blood Blood Culture - Preliminary NO GROWTH AFTER 24 HOURS Resulted 01/06/19 12:55 Blood Blood Culture - Preliminary NO GROWTH AFTER 24 HOURS Resulted 01/06/19 12:55 Indwelling Cath Urine Culture - Preliminary NO GROWTH AFTER 24 HOURS Resulted 01/06/19 22:30 Abdominal Fluid Gram Stain - Final Resulted 01/06/19 22:30 Abdominal Fluid Body Fluid Culture - Preliminary NO GROWTH AFTER 24 HOURS Resulted Accucheck: 167 Micha Ziegler MD Jan 08, 2019 14:14
--- NOTE | 2019-01-08 15:00 | NUR ---
NURSE NOTES: SEEN AND EXAMINED BY DR MORATAYA. PT C/O PAIN ABOUT 8/10. INCREASED FENTANYL DRIP FOLLOWING HOSPITAL PROTOCOL. WILL CONTINUE TO MONITOR.
--- NOTE | 2019-01-08 15:05 | NUR ---
*-*INSURANCE *-* UPDATED CLINICALS HAVE BEEN FAXED TO: [facility]#[phone]
--- NOTE | 2019-01-08 15:44 | NUR ---
NURSE NOTES: TOMMY KAUR SPOKE WITH RICARDO OF SURGERY TO CONFIRM SURGERY FOR TOMORROW.
--- NOTE | 2019-01-08 16:08 | Pulmonology Progress Note ---
Assessment/Plan Assessment/Plan 1. Postoperative respiratory failure. 2. Status post multiple abdominal surgeries for perforated viscus following repair of a Kock pouch. 3. Status post liver transplant on immunosuppressive agents. 4. Hypertension. 5. Hyperglycemia 6. Anemia. 7. Severe protein-calorie malnutrition. very alert on Fentanyl drip on vent with excellent spont ventilation surgery in AM wean and extubate post op Subjective Constitutional: Reports: no symptoms Respiratory: Denies: productive cough, shortness of breath Allergies: Coded Allergies: CODEINE (Verified Allergy, Severe, 12/17/18) Face contractions HYDROMORPHONE (Verified Allergy, Severe, Itching, 12/17/18) Itching whole body METOCLOPRAMIDE (Verified Allergy, Severe, 12/17/18) Face contractions MORPHINE (Verified Allergy, Severe, Shortness of Breath, 12/17/18) SULFA (SULFONAMIDE ANTIBIOTICS) (Verified Allergy, Severe, 12/17/18) Face contractions Objective Last 24 Hour Vital Signs Date Time Temp Pulse Resp B/P (MAP) Pulse Ox O2 Delivery O2 Flow Rate FiO2 01/08/19 15:15 95 15 122/62 (82) 100 01/08/19 15:00 97 16 122/62 (82) 100 01/08/19 14:45 95 16 120/70 (87) 100 01/08/19 14:45 14 Mechanical Ventilator 30 01/08/19 14:30 101 21 120/70 (87) 98 01/08/19 14:00 101 22 120/70 (87) 100 01/08/19 14:00 14 Mechanical Ventilator 30 01/08/19 13:30 106 19 148/126 (133) 99 01/08/19 13:00 105 21 148/126 (133) 99 01/08/19 13:00 21 Mechanical Ventilator 30 01/08/19 12:45 99 20 30 01/08/19 12:34 99 19 141/71 (94) 99 01/08/19 12:00 Mechanical Ventilator 01/08/19 12:00 94 01/08/19 12:00 19 Mechanical Ventilator 30 01/08/19 12:00 98.7 99 19 141/71 (94) 99 01/08/19 11:46 17 Mechanical Ventilator 30 01/08/19 11:45 17 Mechanical Ventilator 30 01/08/19 11:45 94 19 126/57 (80) 99 01/08/19 11:30 100 19 126/57 (80) 99 01/08/19 11:15 99 21 130/56 (80) 99 01/08/19 11:08 101 18 30 01/08/19 11:00 106 21 137/60 (85) 99 01/08/19 11:00 21 Mechanical Ventilator 30 01/08/19 10:30 103 21 137/60 (85) 99 01/08/19 10:00 102 22 137/60 (85) 99 01/08/19 10:00 22 Mechanical Ventilator 30 01/08/19 09:30 94 16 137/60 (85) 100 01/08/19 09:00 18 Mechanical Ventilator 30 01/08/19 09:00 97 18 150/60 (90) 100 01/08/19 08:56 123/78 01/08/19 08:56 93 123/78 01/08/19 08:55 93 123/78 01/08/19 08:49 30 01/08/19 08:49 98 20 40 01/08/19 08:45 30 01/08/19 08:30 93 14 123/78 (93) 100 01/08/19 08:00 Mechanical Ventilator 01/08/19 08:00 93 01/08/19 08:00 23 Mechanical Ventilator 40 01/08/19 08:00 98.8 93 14 123/78 (93) 100 01/08/19 08:00 40 01/08/19 07:30 96 17 158/73 (101) 01/08/19 07:00 94 19 169/94 (119) 100 01/08/19 07:00 17 Mechanical Ventilator 40 01/08/19 06:45 99 18 40 01/08/19 06:00 19 Mechanical Ventilator 40 01/08/19 06:00 96 19 146/69 (94) 100 01/08/19 05:30 96 19 142/66 (91) 100 01/08/19 05:15 96 20 40 01/08/19 05:00 16 Mechanical Ventilator 40 01/08/19 05:00 88 18 140/69 (92) 100 01/08/19 04:30 93 15 137/71 (93) 100 01/08/19 04:16 98.8 01/08/19 04:00 40 01/08/19 04:00 Mechanical Ventilator 01/08/19 04:00 92 01/08/19 04:00 98.8 92 16 133/66 (88) 100 01/08/19 04:00 17 Mechanical Ventilator 40 01/08/19 03:46 16 Mechanical Ventilator 40 01/08/19 03:21 92 17 40 01/08/19 03:00 97 17 125/69 (87) 100 01/08/19 03:00 17 Mechanical Ventilator 40 01/08/19 02:30 97 17 147/61 (89) 100 01/08/19 02:00 99 16 132/56 (81) 100 01/08/19 02:00 16 Mechanical Ventilator 40 01/08/19 01:30 100 14 134/58 (83) 100 01/08/19 01:20 101 21 40 01/08/19 01:00 16 Mechanical Ventilator 40 01/08/19 01:00 98 14 137/60 (85) 100 01/08/19 00:30 98 14 137/66 (89) 100 01/08/19 00:00 98.9 96 16 146/62 (90) 100 01/08/19 00:00 40 01/08/19 00:00 16 Mechanical Ventilator 40 01/08/19 00:00 96 01/08/19 00:00 Mechanical Ventilator 01/07/19 23:30 92 16 125/59 (81) 100 01/07/19 23:05 92 18 40 01/07/19 23:00 82 16 92/48 (63) 100 01/07/19 23:00 16 Mechanical Ventilator 40 01/07/19 22:30 84 16 95/46 (62) 100 01/07/19 22:00 87 17 97/44 (61) 99 01/07/19 22:00 17 Mechanical Ventilator 40 01/07/19 22:00 17 Mechanical Ventilator 40 01/07/19 21:33 91 21 40 01/07/19 21:30 91 16 128/58 (81) 100 01/07/19 21:00 92 18 98/44 (62) 100 01/07/19 21:00 17 Mechanical Ventilator 40 01/07/19 21:00 17 Mechanical Ventilator 40 01/07/19 20:30 105 19 116/50 (72) 99 01/07/19 20:00 108 01/07/19 20:00 40 01/07/19 20:00 99.2 108 18 110/61 (77) 98 01/07/19 20:00 18 Mechanical Ventilator 40 01/07/19 20:00 18 Mechanical Ventilator 40 01/07/19 20:00 Mechanical Ventilator 01/07/19 19:30 113 19 123/55 (77) 99 01/07/19 19:26 114 20 40 01/07/19 19:00 116 18 127/60 (82) 100 01/07/19 19:00 18 Mechanical Ventilator 40 01/07/19 18:36 185/71 01/07/19 18:00 20 Mechanical Ventilator 40 01/07/19 18:00 107 18 174/69 (104) 100 01/07/19 17:29 18 Mechanical Ventilator 40 01/07/19 17:27 107 185/71 01/07/19 17:05 101 12 50 01/07/19 17:00 98.8 109 20 178/72 (107) 100 01/07/19 16:19 98 18 50 01/07/19 16:17 98 18 100 Mechanical Ventilator 50 01/07/19 16:16 73 20 100 Intake and Output 01/07/19 01/08/19 19:00 07:00 Intake Total 1341 ml 2107 ml Output Total 2150 ml 1655 ml Balance -809 ml 452 ml Intake Oral 25 ml 0 ml IV Total 1256 ml 2107 ml Other 60 ml Output Urine Total 1600 ml 680 ml Drainage Total 50 ml 175 ml Other 500 ml 800 ml # Bowel Movements 5 General Appearance: WD/WN, no acute distress HEENT: atraumatic Respiratory/Chest: lungs clear Cardiovascular: regular rhythm, tachycardia Microbiology Date/Time Source Procedure Growth Status 01/07/19 04:15 Blood Blood Culture - Preliminary NO GROWTH AFTER 24 HOURS Resulted 01/06/19 12:55 Blood Blood Culture - Preliminary NO GROWTH AFTER 24 HOURS Resulted 01/06/19 12:55 Indwelling Cath Urine Culture - Preliminary NO GROWTH AFTER 24 HOURS Resulted 01/06/19 22:30 Abdominal Fluid Gram Stain - Final Resulted 01/06/19 22:30 Abdominal Fluid Body Fluid Culture - Preliminary NO GROWTH AFTER 24 HOURS Resulted Laboratory Tests 01/07/19 18:00: Arterial Blood pH 7.290L, Arterial Blood Partial Pressure CO2 39.8, Arterial Blood Partial Pressure O2 121.6H, Arterial Blood HCO3 18.7L, Arterial Blood Oxygen Saturation 98.2, Arterial Blood Base Excess -7.3L, Remington Test Positive 01/08/19 02:00: Vancomycin Level Trough 14.2H 01/08/19 05:00: White Blood Count 23.1*H, Red Blood Count 3.16L, Hemoglobin 9.6L, Hematocrit 29.6L, Mean Corpuscular Volume 93, Mean Corpuscular Hemoglobin 30.3, Mean Corpuscular Hemoglobin Concent 32.5, Red Cell Distribution Width 13.5, Platelet Count 499H, Mean Platelet Volume 5.5L, Neutrophils (%) (Auto) , Lymphocytes (%) (Auto) , Monocytes (%) (Auto) , Eosinophils (%) (Auto) , Basophils (%) (Auto) , Differential Total Cells Counted 100, Neutrophils % (Manual) 92H, Lymphocytes % (Manual) 3L, Monocytes % (Manual) 5, Eosinophils % (Manual) 0, Basophils % ( Manual) 0, Band Neutrophils 0, Platelet Estimate Adequate, Platelet Morphology Normal, Polychromasia 1+, Hypochromasia 1+, Sodium Level 140, Potassium Level 4.5, Chloride Level 108H, Carbon Dioxide Level 23, Anion Gap 9, Blood Urea Nitrogen 28H, Creatinine 1.1, Estimat Glomerular Filtration Rate 49.6, Glucose Level 134#H, Calcium Level 9.9, Phosphorus Level 3.0, Magnesium Level 1.9, Total Bilirubin 0.3, Aspartate Amino Transf (AST/SGOT) 13L, Alanine Aminotransferase (ALT/SGPT) 21, Alkaline Phosphatase 278H, Total Protein 5.8L, Albumin 1.6L, Globulin 4.2, Albumin/Globulin Ratio 0.4L 01/08/19 08:22: Arterial Blood pH 7.424, Arterial Blood Partial Pressure CO2 34.0L, Arterial Blood Partial Pressure O2 141.6H, Arterial Blood HCO3 21.8L, Arterial Blood Oxygen Saturation 98.5, Arterial Blood Base Excess -2.1L, Remington Test Positive Current Medications Medications (Trade) Dose Ordered Sig/Kajal Route PRN Reason Start Time Stop Time Status Last Admin Dose Admin Acetaminophen (Tylenol) 650 mg Q4H PRN ORAL Mild Pain/Temp > 100.2 01/04/19 21:00 01/25/19 20:59 Acetaminophen (Tylenol) 650 mg Q6H PRN ORAL headache 01/04/19 20:45 01/16/19 14:44 Al Hydroxide/Mg Hydroxide (Mylanta) 30 ml Q6H PRN ORAL dyspepsia 01/04/19 21:30 01/27/19 09:29 Amlodipine Besylate (Norvasc) 5 mg BID ORAL 01/05/19 09:00 02/02/19 08:59 01/08/19 08:56 Chlorhexidine Gluconate (Yulia-Hex 2%) 1 applic DAILY@2000 TOPIC 01/04/19 20:00 01/16/19 19:59 01/07/19 20:21 Clonidine HCl (Catapres Tab) 0.1 mg Q6H PRN SL SBP>150 mmHg 01/04/19 22:00 01/21/19 21:59 01/05/19 11:56 Dextrose 1,000 ml @ 0 mls/hr Q24H PRN IV PN interrupted or unavailable 01/04/19 20:00 01/19/19 19:59 Dextrose (Dextrose 50%) 25 ml Q30M PRN IV Hypoglycemia 01/04/19 19:15 01/21/19 12:44 Dextrose (Dextrose 50%) 50 ml Q30M PRN IV Hypoglycemia 01/04/19 19:15 01/21/19 12:44 Dextrose/ Electrolytes 1,000 ml @ 50 mls/hr Q20H IV 01/04/19 20:00 02/02/19 19:59 01/08/19 00:40 Diphenhydramine HCl (Benadryl) 50 mg Q4H PRN ORAL Itching 01/04/19 20:00 01/26/19 19:59 Famotidine (Pepcid I.v.) 20 mg Q12HR IVP 01/04/19 21:00 02/02/19 08:59 01/08/19 08:58 Fat Emulsion Intravenous 216 ml/Amino Acids/ Electrolytes/ Dextrose 1,776 ml @ 74 mls/hr Q24H IV 01/04/19 20:00 01/29/19 19:59 01/07/19 20:28 Fentanyl Citrate 2500 mcg/Sodium Chloride 250 ml @ 0 mls/hr Q24H IV 01/08/19 17:00 01/15/19 16:59 Hydralazine HCl (Apresoline) 10 mg Q4H PRN IV For High Blood Pressure 01/05/19 12:19 02/04/19 12:18 01/07/19 18:36 Insulin Aspart (NovoLOG) Q6HR SUBQ 01/05/19 00:00 01/21/19 17:59 01/08/19 12:02 Levothyroxine Sodium (Synthroid) 100 mcg DAILY IV 01/05/19 09:00 02/04/19 08:59 01/08/19 10:51 Lidocaine (Lidoderm 5% PATCH) 1 patch DAILY TDERMAL 01/04/19 19:00 02/03/19 18:29 01/08/19 09:20 Lidocaine (Lidoderm 5% PATCH) 1 patch DAILY TDERMAL 01/04/19 19:00 02/03/19 18:29 01/08/19 09:21 Lisinopril (Prinivil) 40 mg DAILY ORAL 01/05/19 09:00 01/30/19 08:59 01/08/19 08:56 Meropenem 1 gm/ Sodium Chloride 100 ml @ 200 mls/hr Q8HR IVPB 01/07/19 18:00 01/12/19 17:59 01/08/19 13:47 Metoprolol Succinate (Toprol XL) 25 mg DAILY ORAL 01/05/19 09:00 01/23/19 08:59 01/08/19 08:55 Micafungin Sodium 100 mg/Sodium Chloride 110 ml @ 110 mls/hr Q24H IVPB 01/08/19 20:00 01/14/19 19:59 Mycophenolate Mofetil (Cellcept) 750 mg Q12HR ORAL 01/04/19 21:00 01/24/19 08:59 01/08/19 08:57 Naloxone HCl (Narcan) 0.1 mg PRN IV Sedation scale 3 or 4 01/04/19 19:00 02/03/19 13:44 Ondansetron HCl (Zofran) 4 mg Q6H PRN IVP Nausea & Vomiting 01/04/19 19:15 01/20/19 07:14 01/06/19 02:36 Pantoprazole (Protonix) 40 mg DAILY IVP 01/05/19 09:00 01/25/19 08:59 01/08/19 08:58 Prochlorperazine (Compazine) 10 mg Q6H PRN IVP Nausea & Vomiting 01/04/19 20:00 01/19/19 19:59 01/07/19 18:58 Tacrolimus (Prograf) 1 mg DAILY ORAL 01/05/19 09:00 02/04/19 08:59 01/08/19 08:56 Tacrolimus (Prograf) 2 mg BEDTIME ORAL 01/04/19 21:00 01/16/19 20:59 01/07/19 20:41 Trazodone HCl (Desyrel) 25 mg HSPRN PRN ORAL INSOMNIA 01/04/19 20:00 02/03/19 19:59 01/05/19 03:02 Vancomycin HCl (Vanco rx to dose) 1 ea DAILY PRN MISC Per rx protocol 01/06/19 12:15 02/05/19 12:14 Vancomycin HCl 500 mg/Dextrose 110 ml @ 110 mls/hr Q12HR@0300,1500 IVPB 01/06/19 15:00 01/11/19 14:59 01/08/19 15:18 Vamsi Germain MD Jan 08, 2019 16:08
--- NOTE | 2019-01-08 16:15 | NUR ---
NURSE NOTES: SPECIMEN FOR C-DIFF SENT DOWN TO LAB.
--- NOTE | 2019-01-08 16:57 | NUR ---
CASE MANAGEMENT:REVIEW 01/08/19 SI: POD #21 AND POD#4 S/P RESECTION,ENTEROENTEROSTOMY AND CREATION OF SUKHI ILEOSTOMY TO SURGERY~SMALL BOWEL RESECTION AND RELOCATION OF ILEOSTOMY TO RLQ 98.7 99 19 141/71 99% ON VENT SUPPORT @ 30% FIO2 WBC+23.1 H/H-9.6/29.6 IS: TPN/IL @ 74/HR IV MICAFUNGIN Q24 IV MEROPENEM Q12 IV VANCOMYCIN Q12 IVF@50/HR FENTANYL GTT CELLCEPT PO Q12 PROGRAF PO QHS LIDOCAINE PATCH NORVASC PO BID IV SYNTHROID QD LISINOPRIL PO QD TOPROL NG QD : ICU STATUS
[2019-01-08] MEDS: fentaNYL Citrate 2500mcg in NS 250ml IV SCH (17:17)
--- NOTE | 2019-01-08 18:00 | NUR ---
NURSE NOTES: PATIENT KEPT CLEAN AND DRY. TOLERATING VENT SETTINGS, STILL ON TPN AND FENTANYL DRIP FOLLOWING HOSPITAL PROTOCOL. SURGICAL SITE, DRY AND INTACT. STILL ON WOUND VAC. WILL CONTINUE TO MONITOR.
--- NOTE | 2019-01-08 19:00 | NUR ---
RESPIRATORY NOTE: pt recieved on AC 12 Vt450 28% +5, sat 100%, no signs of SOB or discomfort noted, pt is alert, EET 20@lipline, sx PRN, alarms are on x audible and vent is plugged in red outlet, will continue to monitor the pt.
--- NOTE | 2019-01-08 19:25 | NUR ---
HAND-OFF: Report given to Dale Johnson RN.
--- NOTE | 2019-01-08 19:30 | NUR ---
NURSE NOTES: RECEIVED PATIENT FROM PATRICK Oh. PATIENT IS LYING IN BED, AWAKE, ALERT AND RESPONSIVE, SLIGHTLY SOMNOLENT, HOOKED TO BOX CUTTER. HR OF 95, SINUS RHYTHM. DENIES ANY PAIN OF THE MOMENT. ORALLY INTUBATED ETT 7.0 AT 20CM LIP LINE. VENT SETTINGS AC 12, TV 450, FiO2 40%, PEEP 5. NO SIGNS OF CARDIO OR RESPI DISTRESS OF THE MOMENT. KEPT ON NPO. GT CONNECTED TO BAG BY GRAVITY. NOTED YELLOWISH DISCHARGE. DO CONNECTED TO BAG, PATENT AND DRAINING YELLOW URINE. ILEOSTOMY NOTED ON RLQ WITH SCANT OF DARK GREEN DISCHARGE. SURGICAL SITE, DRY AND INTACT WITH HEMOVAC DRAINING REDDISH DISCHARGE. NOTED R IJ TLC AND L UA PICC LINE, DRESSING DRY AND INTACT. WITH TPN RUNNING AT 74ML/HR AND FENTANYL AT 250MCG/HR FOLLOWING HOSPITAL PROTOCOL AND IVF D5 1/2 NS + 40MEQS KCL AT 50ML/HR. CALL LIGHT WITHIN REACH. BED AT LOWEST POSITION. SIDE RAILS UP. WILL CONTINUE TO MONITOR.
[2019-01-08] MEDS: Fat Emulsion Iv 20% 216 ML in Tpn 1,560 ML IV SCH (20:04)
[2019-01-08] MEDS: Micafungin 100 MG in NS 110 ML IVPB SCH (20:05)
[2019-01-08] MEDS: Dyna-Hex 2% Top Sol 2oz TOPIC SCH (20:05)
--- NOTE | 2019-01-08 20:15 | NUR ---
NURSE NOTES: New TPN bag hung. IV lines flushed and remain patent. Physical assessment further conducted. Pain scale now is 0/10 FLACC scale. Patient follow command appropriately. Patient is able to self reposition. SCD's are on. Afebrile. No cardiac or physical distress at this time. Will continue to monitor.
--- NOTE | 2019-01-08 21:30 | NUR ---
NURSE NOTES: New maintenance fluid bag hung. Patient remains lightly sedated RASS score of -2. Continues on fentanyl gtt at 250mcg. Patient remains able to follow commands. Blood pressure remains stable, HR remains NSR, no complaints of pain or other distress at this time. Patient can communicate with writing board.
--- NOTE | 2019-01-08 22:00 | NUR ---
NURSE NOTES: Patient self repositioned. Remains slightly sedated but reposive to command. No acute distress, BP remains stable. Abdominal wound vac remains dry and intact, no leaks or kinks.
[2019-01-09] VITALS (41 sets, daily range): BP systolic 90–166; BP diastolic 47–85
--- NOTE | 2019-01-09 | NUR ---
NURSE NOTES: Glucose 152, coverage given. Vitals remains stable. NAD. Patient able to self reposition. Remains slightly sedated, still able to follow commands appropriately, SCD' remains on. Will continue to monitor.
--- NOTE | 2019-01-09 02:00 | NUR ---
NURSE NOTES: Patient remains the same, VSS. Patient remains responsive. BP remains stable. Wound Vac remains in tact. No distress. Oral care given. Will continue to monitor.
[2019-01-09] MEDS: Vancomycin 500mg/D5W 110ml IVPB SCH ×4 (02:47→15:20)
[2019-01-09] MEDS: fentaNYL Citrate 2500mcg in NS 250ml IV SCH (02:48)
--- NOTE | 2019-01-09 04:00 | NUR ---
NURSE NOTES: AM labs were drawn and sent to lab. Patient sleeping at this time, opens eyes to vocal commands. Blood pressure remains stable. Patient arousable to voice. Reality reorientation provided. Oral care also given. No acute distress at this time. Will continue to monitor.
[2019-01-09 05:07] LABS: EOSINOPHILS % (AUTO) 4.8 % (0.0-3.0); LYMPHOCYTES % (AUTO) 5.4 % (20.0-45.0); MEAN CORPUSCULAR VOLUME 95 FL (80-99); NEUTROPHILS % (AUTO) 81.9 % (45.0-75.0); PLATELET COUNT 417 K/UL (150-450); RED BLOOD COUNT 2.96 M/UL (4.20-5.40); WHITE BLOOD COUNT 13.8 K/UL (4.8-10.8)
[2019-01-09] MEDS: NovoLOG Insulin Flexpen SUBQ SCH ×4 (05:08→23:27)
[2019-01-09 05:47] LABS: ALANINE AMINOTRANSFERASE 30 U/L (12-78); ALBUMIN 1.5 G/DL (3.4-5.0); ALBUMIN/GLOBULIN RATIO 0.4 (1.0-2.7); ALKALINE PHOSPHATASE 419 U/L (46-116); ANION GAP 6 mmol/L (5-15); ASPARTATE AMINO TRANSFERASE 20 U/L (15-37); BILIRUBIN,TOTAL 0.3 MG/DL (0.2-1.0); BLOOD UREA NITROGEN 30 mg/dL (7-18); CALCIUM 9.7 MG/DL (8.5-10.1); CARBON DIOXIDE 25 MMOL/L (21-32); CHLORIDE 108 MMOL/L (98-107); POTASSIUM 4.7 MMOL/L (3.5-5.1); SODIUM 139 MMOL/L (136-145)
--- NOTE | 2019-01-09 06:00 | NUR ---
NURSE NOTES: Patient remains stable at this time, Vitals stable gastrotomy drainage baml/out Wound Vac container: 200ml/out Kock pouch drainage baml/out No distress at this time. Patient continue to remains awake and alert.
--- NOTE | 2019-01-09 06:30 | NUR ---
NURSE NOTES: Dr. Shelby at bedside assessing patient. Updated him on patient's current condition. Pt reports tramadol is working better for abdominal pain. Blood glucose 174, covered with 6 units Novolog insulin, as ordered. No distress noted. Addendum: 01/09/19 at 1907 by Alivia Walker RN wrong time
--- NOTE | 2019-01-09 06:40 | NUR ---
RESPIRATORY NOTE: Received pt on AC 12-450ml-28%FiO2- peep 5, pt is intubated with ETT 7.0 @20cm lips line, secured with anchor fast. Pt is awake, alert and able to follow commands. No SOB or resp distress noted. Rasheed clear diminished breath sounds heard upon auscultation, suctioned small amounts of thick/thin/frothy clear white secretions without incidents. Alarms are set and audible, vent is plugged into the red outlet, ambu bag is at bedside. Pt will go to OR for surgery soon. Will continue to monitor pt.
--- NOTE | 2019-01-09 06:50 | 48 Hour Post Anesthesia Eval ---
Post Anesthesia Evaluation Procedure: Exploratory Laparotomy, Bowel Resection Date of Evaluation: Jan 08, 2019 Airway: other - intubated, on mechnical ventilation Nausea: No Vomiting: No Hydration Status: adequate Cardiopulmonary Status: at baseline Mental Status/LOC: other - sedated Post-Anesthesia Complications: 0 Follow-up care needed: N/A - further care as per primary team Hannah Miller MD Jan 09, 2019 06:50
[2019-01-09] MEDS ORDERED: Midazolam 2mg/2ml Inj ONE (07:10)
[2019-01-09] MEDS ORDERED: Lidocaine 1% MPF 10mg/ml 5ml ONE (07:10)
[2019-01-09] MEDS ORDERED: fentaNYL 100 mcg/2 mL IV ONE (07:10)
[2019-01-09] MEDS ORDERED: Propofol 200mg/20ml IV ONE (07:10)
[2019-01-09] MEDS ORDERED: Rocuronium Bromide 50mg/5ml Inj IV ONE (07:15)
--- NOTE | 2019-01-09 07:16 | Pre-Procedure Note/Attestation ---
Pre-Procedure Note/Attestation Complete Prior to Procedure Planned Procedure: not applicable Procedure Narrative: removal of wound vac and closure of abdominal wall Indications for Procedure Pre-Operative Diagnosis: status post repair of intestinal leak Attestation I attest that I discussed the nature of the procedure; its benefits; risks and complications; and alternatives (and the risks and benefits of such alternatives ), prior to the procedure, with the patient (or the patient's legal risk control field representative). I attest that, if there was a reasonable possibility of needing a blood transfusion, the patient (or the patient's legal risk control field representative) was given the [facility] standardized written summary, pursuant to the Jesus Rami[place] Blood Safety Act ([place] Health and Safety Code # 1645, as amended). I attest that I re-evaluated the patient just prior to the surgery and that there has been no change in the patient's H&P, except as documented below:none Lars Sotomayor MD Jan 09, 2019 07:16
[2019-01-09] MEDS ORDERED: LR 1000ml ONE (07:30)
[2019-01-09] MEDS ORDERED: NS Irrig 1000ml ONE (07:30)
[2019-01-09] MEDS ORDERED: Sterile Water Irrig 1000ml IRRIG ONE (07:30)
--- NOTE | 2019-01-09 07:30 | NUR ---
RESPIRATORY NOTE: Pt transferred into the OR for surgery. Pt is awake, alert, able to follow commands. No SOB or resp distress. Pt will be extubated post surgery if stable. RN Felipa Miranda aware.
--- NOTE | 2019-01-09 07:30 | NUR ---
NURSE NOTES: RECEIVED PATIENT FROM PATRICK LEVIN. PATIENT IS OBSERVED LYING IN BED, DROWSY, HOWEVER, AWAKE, ALERT AND RESPONSIVE. 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 ORALLY INTUBATED ETT 7.0 AT 20CM @ THE LIP LINE. VENT SETTINGS AC 12, TV 450, FiO2 28%, PEEP 5. NO SIGNS OF CARDIAC OR RESPIRATORY DISTRESS NOTED. GASTROSTOMY TUBE CONNECTED TO BAG, DRAINING BY GRAVITY. DO CATHETER CONNECTED TO BAG, PATENT AND DRAINING YELLOW URINE. ILEOSTOMY NOTED ON RLQ WITH DARK GREEN DRAINAGE NOTED. ABDOMINAL SURGICAL SITE, DRY AND INTACT CONNECTED TO WOUND VAC DRAINING REDDISH DISCHARGE. NOTED RT IJ TLC AND LT UA PICC LINE, DRESSING DRY AND INTACT. TPN RUNNING AT 74ML/HR AND FENTANYL AT 100MCG/HR AND D5 1/2 NS + 40MEQS KCL AT 50ML/HR. PATIENT TAKEN DOWN TO SURGERY FOR REMOVAL OF WOUND VAC AND ABDOMINAL WALL CLOSURE- CONSENT IN CHART. RT BAGGING PT IN TRANSPORT. PT CONNECTED TO SALESPERSON DRIVER, AND ALL IV FLUIDS CONNECTED AND INFUSING, INCLUDING TPN, FENTANYL, AND D5 1/2 NS + 40MEQ KCL, ORDERED BY . REPORT GIVEN TO RESORT MANAGER BY RUST OLLIE NGUYEN.
[2019-01-09] MEDS ORDERED: NeoSporin Gu Irrig 1ml Amp IRRIG ONE (07:32)
[2019-01-09] MEDS ORDERED: Bacitracin 50000 Units Vial ONE (07:32)
--- NOTE | 2019-01-09 07:33 | NUR ---
CASE MANAGEMENT:REVIEW 01/09/19 SI: POD #22 AND POD#5 POST OP RESPIRATORY FAILURE 98.9 102 16 164/63 99% ON VENT SUPPORT WBC+13.8 H/H-9.0/28.0 VENT: FIO2~28% AC~12 TV~450 IS: TPN/IL @ 74/HR IV MICAFUNGIN Q24 IV MEROPENEM Q12 IV VANCOMYCIN Q12 IVF@50/HR FENTANYL GTT CELLCEPT PO Q12 PROGRAF PO QHS LIDOCAINE PATCH NORVASC PO BID IV SYNTHROID QD LISINOPRIL PO QD TOPROL XL NG QD : ICU STATUS PLAN: BACK TO SURGERY TODAY TO REMOVE WOUND VAC AND CLOSURE OF ABDOMINAL WALL
--- NOTE | 2019-01-09 08:46 | Brief Operative Note ---
Immediate Post Operative Note Operative Note Pre-op Diagnosis: status post repair of intestinal leak Procedure: remove wound vac, repair bowel leak from ileostomy segment, abdominal wall closure Post-op Diagnosis: same Post-op Diagnosis: same as pre-op Findings: consistent w/pre-op dx studies Surgeon: lorena Orientation And Mobility Specialist: chucho Anesthesiologist: vandana Anesthesia: general Specimen: none Complications: none Condition: stable Fluids: see anesthesia record Estimated Blood Loss: minimal Drains: HAROLDO Implant(s) used?: No Lars Sotomayor MD Jan 09, 2019 08:46
[2019-01-09] MEDS ORDERED: LR 1000ml 1,000 ML IVLG SCH (08:48)
--- NOTE | 2019-01-09 08:48 | Immediate Post-Op Evaluation ---
Immediate Post-Op Evalulation Immediate Post-Op Evalulation Procedure: Delayed closure of abdominal wound Date of Evaluation: Jan 09, 2019 Time of Evaluation: 08:45 IV Fluids: 800 Blood Products: 0 Estimated Blood Loss: min Urinary Output: 250 Blood Pressure Systolic: 128 Blood Pressure Diastolic: 72 Pulse Rate: 91 Respiratory Rate: 16 O2 Sat by Pulse Oximetry: 99 Temperature (Fahrenheit): 97.8 Pain Score (1-10): 0 Nausea: No Vomiting: No Complications 0 Patient Status: awake, reacts, patent, none Hydration Status: adequate Drug: On floor, vanco, meropenem, micafungin Given Within 1 Hr of Incision: Yes Hannah Miller MD Jan 09, 2019 08:48
[2019-01-09] MEDS ORDERED: fentaNYL 100 mcg/2 mL IV PRN (09:00)
[2019-01-09] MEDS ORDERED: LORazepam Inj 2mg/ml 1ml IV PRN (09:00)
[2019-01-09] MEDS ORDERED: DiphenhydrAMINE 50mg/ml Inj IVP PRN (09:00)
[2019-01-09] MEDS ORDERED: Midazolam 2mg/2ml Inj IVP PRN (09:00)
--- NOTE | 2019-01-09 09:17 | Pulmonology Progress Note ---
Assessment/Plan Assessment/Plan 1. Postoperative respiratory failure, resolved. 2. Status post multiple abdominal surgeries for perforated viscus following repair of a Kock pouch. 3. Status post liver transplant on immunosuppressive agents. 4. Hypertension. 5. Hyperglycemia 6. Anemia. 7. Severe protein-calorie malnutrition. seen in PACU, extubated post op very alert off Fentanyl drip tolerated surgery well doing well with no SOB will see prn, thanks Subjective Constitutional: Reports: no symptoms Respiratory: Denies: productive cough, shortness of breath Gastrointestinal/Abdominal: Reports: other - abd pain Allergies: Coded Allergies: CODEINE (Verified Allergy, Severe, 12/17/18) Face contractions HYDROMORPHONE (Verified Allergy, Severe, Itching, 12/17/18) Itching whole body METOCLOPRAMIDE (Verified Allergy, Severe, 12/17/18) Face contractions MORPHINE (Verified Allergy, Severe, Shortness of Breath, 12/17/18) SULFA (SULFONAMIDE ANTIBIOTICS) (Verified Allergy, Severe, 12/17/18) Face contractions Objective Last 24 Hour Vital Signs Date Time Temp Pulse Resp B/P (MAP) Pulse Ox O2 Delivery O2 Flow Rate FiO2 01/09/19 09:10 94 18 160/76 97 Nasal Cannula 3 01/09/19 09:00 96 15 163/80 100 Nasal Cannula 3 01/09/19 08:50 97 17 166/75 100 Simple Mask 6 01/09/19 08:48 91 16 99 01/09/19 08:45 96 14 147/82 99 Simple Mask 6 01/09/19 08:40 97.8 91 16 128/72 99 Simple Mask 6 01/09/19 07:20 Mechanical Ventilator 01/09/19 07:20 28 01/09/19 07:00 99.4 112 21 107/82 (90) 100 01/09/19 06:40 112 22 30 01/09/19 06:00 102 21 164/63 (96) 99 01/09/19 06:00 16 Mechanical Ventilator 01/09/19 05:30 95 16 142/63 (89) 99 01/09/19 05:21 89 19 30 01/09/19 05:00 85 14 139/63 (88) 100 01/09/19 05:00 14 Mechanical Ventilator 01/09/19 04:30 85 13 103/55 (71) 100 01/09/19 04:00 98.9 91 13 133/56 (81) 100 01/09/19 04:00 28 01/09/19 04:00 13 Mechanical Ventilator 28 01/09/19 04:00 Mechanical Ventilator 01/09/19 04:00 104 01/09/19 03:30 89 14 99/63 (75) 100 01/09/19 03:06 98 18 30 01/09/19 03:00 19 Mechanical Ventilator 28 01/09/19 03:00 97 19 150/66 (94) 99 01/09/19 02:48 Mechanical Ventilator 28 01/09/19 02:30 89 14 127/47 (73) 100 01/09/19 02:00 92 14 90/50 (63) 01/09/19 02:00 15 Mechanical Ventilator 28 01/09/19 01:30 106 16 119/55 (76) 97 01/09/19 01:00 97 18 30 01/09/19 01:00 24 Mechanical Ventilator 28 01/09/19 01:00 108 24 127/69 (88) 99 01/09/19 00:30 111 16 154/62 (92) 98 01/09/19 00:00 97 01/09/19 00:00 28 01/09/19 00:00 Mechanical Ventilator 01/09/19 00:00 19 Mechanical Ventilator 28 01/09/19 00:00 99.4 99 19 149/58 (88) 99 01/08/19 23:30 98 19 127/75 (92) 99 01/08/19 23:15 99 19 30 01/08/19 23:00 92 15 108/60 (76) 99 01/08/19 23:00 16 Mechanical Ventilator 28 01/08/19 22:30 95 14 139/58 (85) 100 01/08/19 22:00 15 28 01/08/19 22:00 89 15 103/49 (67) 100 01/08/19 21:36 99 18 30 01/08/19 21:30 89 15 103/76 (85) 100 01/08/19 21:00 89 15 91/51 (64) 100 01/08/19 21:00 15 Mechanical Ventilator 28 01/08/19 20:30 96 17 126/55 (78) 99 01/08/19 20:00 28 01/08/19 20:00 98.7 95 16 131/73 (92) 98 01/08/19 20:00 16 Mechanical Ventilator 28 01/08/19 20:00 Mechanical Ventilator 01/08/19 20:00 93 01/08/19 19:30 92 17 117/52 (73) 100 01/08/19 19:00 94 17 105/49 (67) 100 01/08/19 19:00 15 Mechanical Ventilator 28 01/08/19 19:00 97 18 30 01/08/19 18:30 96 15 117/63 (81) 100 01/08/19 18:00 19 Mechanical Ventilator 28 01/08/19 18:00 101 19 117/63 (81) 100 01/08/19 17:30 97 17 117/63 (81) 100 01/08/19 17:18 96 115/59 01/08/19 17:17 18 Mechanical Ventilator 28 01/08/19 17:00 18 Mechanical Ventilator 28 01/08/19 17:00 95 17 115/59 (77) 100 01/08/19 17:00 96 18 115/59 (77) 100 01/08/19 16:55 98 18 30 01/08/19 16:30 98 19 123/60 (81) 100 01/08/19 16:18 Mechanical Ventilator 28 01/08/19 16:00 98 16 136/62 (86) 96 01/08/19 16:00 28 01/08/19 16:00 Mechanical Ventilator 01/08/19 16:00 98.1 01/08/19 16:00 96 01/08/19 15:45 89 13 127/60 (82) 100 01/08/19 15:30 98 23 127/60 (82) 100 01/08/19 15:15 95 15 122/62 (82) 100 01/08/19 15:15 100 20 30 01/08/19 15:00 Mechanical Ventilator 30 01/08/19 15:00 97 16 122/62 (82) 100 01/08/19 14:45 95 16 120/70 (87) 100 01/08/19 14:45 14 Mechanical Ventilator 30 01/08/19 14:30 101 21 120/70 (87) 98 01/08/19 14:00 101 22 120/70 (87) 100 01/08/19 14:00 14 Mechanical Ventilator 30 01/08/19 13:30 106 19 148/126 (133) 99 01/08/19 13:00 105 21 148/126 (133) 99 01/08/19 13:00 21 Mechanical Ventilator 30 01/08/19 12:45 99 20 30 01/08/19 12:34 99 19 141/71 (94) 99 01/08/19 12:00 Mechanical Ventilator 01/08/19 12:00 94 01/08/19 12:00 30 01/08/19 12:00 19 Mechanical Ventilator 30 01/08/19 12:00 98.7 99 19 141/71 (94) 99 01/08/19 11:46 17 Mechanical Ventilator 30 01/08/19 11:45 17 Mechanical Ventilator 30 01/08/19 11:45 94 19 126/57 (80) 99 01/08/19 11:30 100 19 126/57 (80) 99 01/08/19 11:15 99 21 130/56 (80) 99 01/08/19 11:08 101 18 30 01/08/19 11:00 106 21 137/60 (85) 99 01/08/19 11:00 21 Mechanical Ventilator 30 01/08/19 10:30 103 21 137/60 (85) 99 01/08/19 10:00 102 22 137/60 (85) 99 01/08/19 10:00 22 Mechanical Ventilator 30 01/08/19 09:30 94 16 137/60 (85) 100 Intake and Output 01/08/19 01/09/19 19:00 07:00 Intake Total 2578.25 ml 1985 ml Output Total 2100 ml 1845 ml Balance 478.25 ml 140 ml Free Water 80 ml 90 ml IV Total 2498.25 ml 1895 ml Output Urine Total 1465 ml 1185 ml Drainage Total 210 ml 200 ml Other 425 ml 460 ml General Appearance: WD/WN, no acute distress HEENT: atraumatic Respiratory/Chest: lungs clear Cardiovascular: normal rate Microbiology Date/Time Source Procedure Growth Status 01/07/19 04:15 Blood Blood Culture - Preliminary NO GROWTH AFTER 48 HOURS Resulted 01/06/19 12:55 Blood Blood Culture - Preliminary NO GROWTH AFTER 48 HOURS Resulted 01/08/19 16:00 Stool Clostridium difficile Toxin Assay - Final Complete 01/06/19 12:55 Indwelling Cath Urine Culture - Final NO GROWTH AFTER 48 HOURS Complete 01/06/19 22:30 Abdominal Fluid Gram Stain - Final Resulted 01/06/19 22:30 Abdominal Fluid Body Fluid Culture - Preliminary NO GROWTH AFTER 24 HOURS Resulted Laboratory Tests 01/09/19 04:00: White Blood Count 13.8H, Red Blood Count 2.96L, Hemoglobin 9.0L, Hematocrit 28.0L, Mean Corpuscular Volume 95, Mean Corpuscular Hemoglobin 30.3, Mean Corpuscular Hemoglobin Concent 32.1, Red Cell Distribution Width 14.0, Platelet Count 417, Mean Platelet Volume 5.4L, Neutrophils (%) (Auto) 81.9H, Lymphocytes (%) (Auto) 5.4L, Monocytes (%) (Auto) 7.0, Eosinophils (%) (Auto) 4.8H, Basophils (%) (Auto) 1.0, Sodium Level 139, Potassium Level 4.7, Chloride Level 108H, Carbon Dioxide Level 25, Anion Gap 6, Blood Urea Nitrogen 30H, Creatinine 1.0, Estimat Glomerular Filtration Rate 55.3, Glucose Level 172H, Calcium Level 9.7, Total Bilirubin 0.3, Aspartate Amino Transf (AST/SGOT) 20, Alanine Aminotransferase (ALT/SGPT) 30, Alkaline Phosphatase 419H, Total Protein 5.5L, Albumin 1.5L, Globulin 4.0, Albumin/Globulin Ratio 0.4L Current Medications Medications (Trade) Dose Ordered Sig/Kajal Route PRN Reason Start Time Stop Time Status Last Admin Dose Admin Acetaminophen (Tylenol) 650 mg Q4H PRN ORAL Mild Pain/Temp > 100.2 01/04/19 21:00 01/25/19 20:59 Acetaminophen (Tylenol) 650 mg Q6H PRN ORAL headache 01/04/19 20:45 01/16/19 14:44 Al Hydroxide/Mg Hydroxide (Mylanta) 30 ml Q6H PRN ORAL dyspepsia 01/04/19 21:30 01/27/19 09:29 Amlodipine Besylate (Norvasc) 5 mg BID ORAL 01/05/19 09:00 02/02/19 08:59 01/08/19 17:18 Chlorhexidine Gluconate (Yulia-Hex 2%) 1 applic DAILY@2000 TOPIC 01/04/19 20:00 01/16/19 19:59 01/08/19 20:05 Clonidine HCl (Catapres Tab) 0.1 mg Q6H PRN SL SBP>150 mmHg 01/04/19 22:00 01/21/19 21:59 01/05/19 11:56 Dextrose 1,000 ml @ 0 mls/hr Q24H PRN IV PN interrupted or unavailable 01/04/19 20:00 01/19/19 19:59 Dextrose (Dextrose 50%) 25 ml Q30M PRN IV Hypoglycemia 01/04/19 19:15 01/21/19 12:44 Dextrose (Dextrose 50%) 50 ml Q30M PRN IV Hypoglycemia 01/04/19 19:15 01/21/19 12:44 Dextrose/ Electrolytes 1,000 ml @ 50 mls/hr Q20H IV 01/04/19 20:00 02/02/19 19:59 01/08/19 21:18 Diphenhydramine HCl (Benadryl) 25 mg Q15M PRN IVP Itching 01/09/19 09:00 01/09/19 18:00 Diphenhydramine HCl (Benadryl) 50 mg Q4H PRN ORAL Itching 01/04/19 20:00 01/26/19 19:59 Famotidine (Pepcid I.v.) 20 mg Q12HR IVP 01/04/19 21:00 02/02/19 08:59 01/08/19 20:05 Fat Emulsion Intravenous 216 ml/Amino Acids/ Electrolytes/ Dextrose 1,776 ml @ 74 mls/hr Q24H IV 01/04/19 20:00 01/29/19 19:59 01/08/19 20:04 Fentanyl (Duragesic) 1 patch Q72H TDERMAL 01/09/19 09:00 01/16/19 08:59 01/09/19 09:07 Fentanyl Citrate (Sublimaze 100 mcg/2 mL) 25 mcg Q10M PRN IV Moderate Pain (Pain Scale 4-6) 01/09/19 09:00 01/09/19 18:00 Hydralazine HCl (Apresoline) 5 mg Q30M PRN IV SBP>160 OR___/DBP>90 OR___ 01/09/19 09:00 01/09/19 18:00 Hydralazine HCl (Apresoline) 10 mg Q4H PRN IV For High Blood Pressure 01/05/19 12:19 02/04/19 12:18 01/07/19 18:36 Insulin Aspart (NovoLOG) Q6HR SUBQ 01/05/19 00:00 01/21/19 17:59 01/09/19 05:08 Lactated Ringer's 1,000 ml @ 10 mls/hr Q24H IVLG 01/09/19 08:48 01/09/19 18:00 Levothyroxine Sodium (Synthroid) 100 mcg DAILY IV 01/05/19 09:00 02/04/19 08:59 01/08/19 10:51 Lidocaine (Lidoderm 5% PATCH) 1 patch DAILY TDERMAL 01/04/19 19:00 02/03/19 18:29 01/08/19 20:09 Lidocaine (Lidoderm 5% PATCH) 1 patch DAILY TDERMAL 01/04/19 19:00 02/03/19 18:29 01/08/19 20:09 Lisinopril (Prinivil) 40 mg DAILY ORAL 01/05/19 09:00 01/30/19 08:59 01/08/19 08:56 Lorazepam (Ativan 2mg/ml 1ml) 0.5 mg Q15M PRN IV For Anxiety 01/09/19 09:00 01/09/19 18:00 Meropenem 1 gm/ Sodium Chloride 100 ml @ 200 mls/hr Q8HR IVPB 01/07/19 18:00 01/12/19 17:59 01/09/19 05:07 Metoprolol Succinate (Toprol XL) 25 mg DAILY ORAL 01/05/19 09:00 01/23/19 08:59 01/08/19 08:55 Micafungin Sodium 100 mg/Sodium Chloride 110 ml @ 110 mls/hr Q24H IVPB 01/08/19 20:00 01/14/19 19:59 01/08/19 20:05 Midazolam HCl (Versed 2mg/2ml vial) 1 mg Q15M PRN IVP For Anxiety 01/09/19 09:00 01/09/19 18:00 Mycophenolate Mofetil (Cellcept) 750 mg Q12HR ORAL 01/04/19 21:00 01/24/19 08:59 01/08/19 20:06 Naloxone HCl (Narcan) 0.1 mg PRN IV Sedation scale 3 or 4 01/04/19 19:00 02/03/19 13:44 Ondansetron HCl (Zofran) 4 mg Q1H PRN IVP Nausea & Vomiting 01/09/19 09:00 01/09/19 18:00 Ondansetron HCl (Zofran) 4 mg Q6H PRN IVP Nausea & Vomiting 01/04/19 19:15 01/20/19 07:14 01/06/19 02:36 Pantoprazole (Protonix) 40 mg DAILY IVP 01/05/19 09:00 01/25/19 08:59 01/08/19 08:58 Prochlorperazine (Compazine) 10 mg Q6H PRN IVP Nausea & Vomiting 01/04/19 20:00 01/19/19 19:59 01/07/19 18:58 Tacrolimus (Prograf) 1 mg DAILY ORAL 01/05/19 09:00 02/04/19 08:59 01/08/19 08:56 Tacrolimus (Prograf) 2 mg BEDTIME ORAL 01/04/19 21:00 01/16/19 20:59 01/08/19 20:06 Trazodone HCl (Desyrel) 25 mg HSPRN PRN ORAL INSOMNIA 01/04/19 20:00 02/03/19 19:59 01/05/19 03:02 Vancomycin HCl (Vanco rx to dose) 1 ea DAILY PRN MISC Per rx protocol 01/06/19 12:15 02/05/19 12:14 Vancomycin HCl 500 mg/Dextrose 110 ml @ 110 mls/hr Q12HR@0300,1500 IVPB 01/06/19 15:00 01/11/19 14:59 01/09/19 02:47 Vamsi Germain MD Jan 09, 2019 09:16
--- NOTE | 2019-01-09 09:40 | NUR ---
NURSE NOTES: Patient transported back to ICU from OR. Extubated, on 2L NC SpO2: 99%. B/P: 152/59, HR: 99. Temp: 99.4. Resume all pre-op orders, with exception of Fentanyl drip, as ordered by .
--- NOTE | 2019-01-09 09:45 | NUR ---
RESPIRATORY NOTE: Pt back into the ICU post surgery. Pt got extubated in surgery, and placed on 3L 32%FiO2. Pt is awake, alert, and responsive. No SOB or resp distress noted. RN Felipa Miranda at bedside and aware. No stridor heard. Will continue to monitor.
--- NOTE | 2019-01-09 10:25 | NUR ---
NURSE NOTE: Called Dr. Sotomayor and left message in regards to patient's pain (01/29). No PRN meds ordered.
--- NOTE | 2019-01-09 10:30 | Operative Note - Dictated ---
DATE OF OPERATION: 01/09/2019 SURGEON: Lars Sotomayor M.D. COMMISSIONING SPECIALIST SURGEON: Kvng Sanchez M.D. ANESTHESIOLOGIST: Hannah Fang M.D. TYPE OF ANESTHESIA: General. PREOPERATIVE DIAGNOSES: 1. Status post repair of postoperative intestinal leak with application of wound VAC. 2. History of ulcerative colitis. 3. History of primary sclerosing cholangitis. 4. Status post multiple abdominal operations. 4.1. Appendectomy in 1964. 4.2. Proctocolectomy and Kock pouch in 1978. 4.3. Total abdominal hysterectomy and bilateral salpingo-oophorectomy in 1983. 4.4. Cholecystectomy in 1985. 4.5. Orthotopic liver transplant in 1999. 4.6. Revision of Kock pouch and repair of fistula with finding of small contracted pouch in 2010. 4.7. 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 4.8. Exploratory laparotomy with segmental small bowel resections for ischemic obstruction with relocation of ileostomy to right lower quadrant for retracted stoma 01/04/2019. 4.9. Laparotomy with repair of staple line dehiscence and wound VAC closure of abdomen. POSTOPERATIVE DIAGNOSES: 1. Status post repair of postoperative intestinal leak with application of wound VAC. 2. History of ulcerative colitis. 3. History of primary sclerosing cholangitis. 4. Status post multiple abdominal operations. 4.1. Appendectomy in 1964. 4.2. Proctocolectomy and Kock pouch in 1978. 4.3. Total abdominal hysterectomy and bilateral salpingo-oophorectomy in 1983. 4.4. Cholecystectomy in 1985. 4.5. Orthotopic liver transplant in 1999. 4.6. Revision of Kock pouch and repair of fistula with finding of small contracted pouch in 2010. 4.7. 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 4.8. Exploratory laparotomy with segmental small bowel resections for ischemic obstruction with relocation of ileostomy to right lower quadrant for retracted stoma 01/04/2019. 4.9. Laparotomy with repair of staple line dehiscence and wound VAC closure of abdomen. OPERATION PERFORMED: 1. Removal of wound VAC. 2. Repair of intestinal leak of ileostomy segment. 3. Abdominal wall closure with placement of drain. DESCRIPTION OF PROCEDURE: The patient was taken to the operating room, under general anesthesia, prepped and draped in usual fashion. The wound VAC and the ileostomy appliance were removed. There had been some greenish drainage overnight. The prior staple line dehiscence repair was intact. There was an unexpected hole in the small bowel under the abdominal wall of the ileostomy segment. A 28-Slovenian Pickett was placed into the stoma and could come out the hole and go through proximally. The hole was repaired with 2 layers of 2-0 Vicryl suture. The Pickett catheter placed just beyond the repair and saline instilled and no extravasation was seen. The catheter removed. Through a separate stab incision in the left lower quadrant, a large flat Abdiaziz-Spangler was placed down into the pelvis towards the right side up towards the ileostomy segment. It was sutured to the skin with 2-0 silk suture. The abdominal wall was closed with continuous #1 looped PDS. Antibiotic irrigation utilized. The abdomen had been irrigated as well with saline. Skin closed with reggie. Ileostomy appliance placed over the stoma and dry sterile dressing over the incisions. Final sponge and needle counts were correct. The patient tolerated the procedure well and left the operating room still in critical condition. Lars Sotomayor M.D. DR: CRISTINA JOB#: [id number] CC: BRENDEN
[2019-01-09] MEDS: fentaNYL 100 mcg/2 mL IV PRN ×3 (10:49→23:26)
--- NOTE | 2019-01-09 10:49 | NUR ---
NURSE NOTES: Dr. Sotomayor returned call. Fentanyl 12.5mcg IV push ordered and administered for left lower abdominal pain (10-burning pain). Dr Sotomayor also ordered ice chips 1 teaspoon q 30 mins max for pt's c/o dry mouth.
[2019-01-09] MEDS: Metoprolol Succinate XL 25mg tab ORAL SCH (10:55)
[2019-01-09] MEDS: Pantoprazole Inj IVP SCH (10:55)
[2019-01-09] MEDS: Lisinopril 20mg tab ORAL SCH (10:56)
[2019-01-09] MEDS: Mycophenolate 250mg cap ORAL SCH ×2 (10:57→20:30)
--- NOTE | 2019-01-09 11:29 | NUR ---
*-*INSURANCE *-* UPDATED CLINICALS HAVE BEEN FAXED TO: [facility]#[phone]
--- NOTE | 2019-01-09 11:30 | NUR ---
NURSE NOTES: RT at bedside, added humidifier to oxygen to break up secretions. Educated on how to use/how often to use incentive spirometer. 2L NC spO2 99%. Pt repositioned. No distress noted.
--- NOTE | 2019-01-09 13:05 | NUR ---
NURSE NOTES: Spoke with Kimberlee pharmacist regarding route. PRN Fentanyl 12.5mcg given subc for 10/10 abdominal pain as ordered by Dr Sotomayor. Will reassess pain.
--- NOTE | 2019-01-09 13:18 | NUR ---
RD ASSESSMENT & RECOMMENDATIONS SEE CARE ACTIVITY FOR COMPLETE ASSESSMENT DAILY ESTIMATED NEEDS: Needs based on Surgery 61kg 25-30 kcals/kg 0748-4110 total kcals 1-2 g protein/kg 61-122 g total protein 25-30 mL/kg 9757-9084 total fluid mLs NUTRITION DIAGNOSIS: Altered GI fxn r/t h/o UC and malfunctioning kock pouch as evidenced by pt is s/p kock pouch takedown w/ creation of Yajaira ileo, now s/p ex lap, segmental small bowel resections and relocation of ileostomy, back to NPO, remains on TPN. CURRENT DIET:NPO, on TPN PO DIET RECOMMENDATIONS: Diet per MD PARENTERAL NUTRITION RECOMMENDATIONS: D/AA Rate: 65 IL Rate: 9 Total Rate: 74 Volume: 1776 % Dextrose: 18 % AA: 5.5 Energy (kcals/kg): 1730 Protein (g/kg protein): 86 Nonprotein KCALS: 1386 GIR (mg CHO/kg/min): 3.2 % Fat KCALS: 25 NCP: N Ratio: 101:1 TPN Comment: - Maintain current TPN: D18% + AA 5.5% @65ml/hr + 20% IL @9ml/hr - TPN at goal meets 100% est kcal/prot needs (28 kcal/kg and 1.4g prot/kg) ADDITIONAL RECOMMENDATIONS: 1) Obtain a standing weight as pt is able to ambulate in halls 2) Monitor lytes, BG , LFTs daily w/ TPN Replete lytes as needed 3) Consider DC D5 IVF for improved BG control 4) Diet per MD . .
--- NOTE | 2019-01-09 13:32 | Critical Care Progress Note ---
Assessment/Plan Status Narrative UC S/P multiple abdominal surgeries Intestinal leakage s/p laparotomy repair intestinal staple line dehiscence, apply wound vac S/P Closure of abdominal wound and removal of wound VAC 01/09/19 HTN H/O Liver transplant Hypothyroidism Post Op pain Assessment/Plan ICU monitor IV Fluids TPN Increase Metoprolol to 50 mg/day per GT PO meds given by GT. Clonidine 0.1 mg Q6 h PRN- may increase as needed Hydralazine IV PRN Monitor I/Os Monitor labs. I/S Pain management- may need to increase meds. Discussed with ICU Staff Critical Care - Subjective Interval Events: S/P Closure of wound and removal of wound VAC to day In ICU, extubated C/O abdominal pain IV Access: central EKG Rhythm: Sinus Tachycardia IV Fluids: D5 1/2 NS Drips: TPN 74 cc/h Tube Feeding Tolerated: no I&O: Intake and Output 01/08/19 01/09/19 19:00 07:00 Intake Total 2578.25 ml 1985 ml Output Total 2100 ml 1845 ml Balance 478.25 ml 140 ml Free Water 80 ml 90 ml IV Total 2498.25 ml 1895 ml Output Urine Total 1465 ml 1185 ml Drainage Total 210 ml 200 ml Other 425 ml 460 ml Critical Care - Objective ET-Tube: 7.0 ET Position: 20 Last 24 Hour Vital Signs Date Time Temp Pulse Resp B/P (MAP) Pulse Ox O2 Delivery O2 Flow Rate FiO2 01/09/19 12:00 101 17 128/75 (92) 100 01/09/19 12:00 2.0 01/09/19 12:00 Mechanical Ventilator 01/09/19 11:48 101 01/09/19 11:30 103 18 110/72 (85) 100 01/09/19 11:00 105 18 161/70 (100) 100 01/09/19 10:56 161/67 01/09/19 10:56 102 161/67 01/09/19 10:55 102 161/67 01/09/19 10:45 103 18 161/67 (98) 99 01/09/19 10:30 106 20 163/67 (99) 99 01/09/19 10:15 103 15 152/61 (91) 99 01/09/19 10:00 101 21 152/59 (90) 99 01/09/19 09:50 97.6 01/09/19 09:45 Nasal Cannula 3.0 32 01/09/19 09:40 99.4 99 16 158/61 (93) 99 01/09/19 09:29 97.6 97 16 165/71 100 Nasal Cannula 3 01/09/19 09:15 98 17 159/77 98 Nasal Cannula 3 01/09/19 09:10 94 18 160/76 97 Nasal Cannula 3 01/09/19 09:00 96 15 163/80 100 Nasal Cannula 3 01/09/19 08:50 97 17 166/75 100 Simple Mask 6 01/09/19 08:48 91 16 99 01/09/19 08:45 96 14 147/82 99 Simple Mask 6 01/09/19 08:40 97.8 91 16 128/72 99 Simple Mask 6 01/09/19 07:20 Mechanical Ventilator 01/09/19 07:20 28 01/09/19 07:10 111 01/09/19 07:00 99.4 112 21 107/82 (90) 100 01/09/19 06:40 112 22 28 01/09/19 06:00 102 21 164/63 (96) 99 01/09/19 06:00 16 Mechanical Ventilator 28 01/09/19 05:30 95 16 142/63 (89) 99 01/09/19 05:21 89 19 30 01/09/19 05:00 85 14 139/63 (88) 100 01/09/19 05:00 14 Mechanical Ventilator 28 01/09/19 04:30 85 13 103/55 (71) 100 01/09/19 04:00 98.9 91 13 133/56 (81) 100 01/09/19 04:00 28 01/09/19 04:00 13 Mechanical Ventilator 28 01/09/19 04:00 Mechanical Ventilator 01/09/19 04:00 104 01/09/19 03:30 89 14 99/63 (75) 100 01/09/19 03:06 98 18 30 01/09/19 03:00 19 Mechanical Ventilator 28 01/09/19 03:00 97 19 150/66 (94) 99 01/09/19 02:48 Mechanical Ventilator 28 01/09/19 02:30 89 14 127/47 (73) 100 01/09/19 02:00 92 14 90/50 (63) 01/09/19 02:00 15 Mechanical Ventilator 28 01/09/19 01:30 106 16 119/55 (76) 97 01/09/19 01:00 97 18 30 01/09/19 01:00 24 Mechanical Ventilator 28 01/09/19 01:00 108 24 127/69 (88) 99 01/09/19 00:30 111 16 154/62 (92) 98 01/09/19 00:00 97 01/09/19 00:00 28 01/09/19 00:00 Mechanical Ventilator 01/09/19 00:00 19 Mechanical Ventilator 28 01/09/19 00:00 99.4 99 19 149/58 (88) 99 01/08/19 23:30 98 19 127/75 (92) 99 01/08/19 23:15 99 19 30 01/08/19 23:00 92 15 108/60 (76) 99 01/08/19 23:00 16 Mechanical Ventilator 28 01/08/19 22:30 95 14 139/58 (85) 100 01/08/19 22:00 15 28 01/08/19 22:00 89 15 103/49 (67) 100 01/08/19 21:36 99 18 30 01/08/19 21:30 89 15 103/76 (85) 100 01/08/19 21:00 89 15 91/51 (64) 100 01/08/19 21:00 15 Mechanical Ventilator 28 01/08/19 20:30 96 17 126/55 (78) 99 01/08/19 20:00 28 01/08/19 20:00 98.7 95 16 131/73 (92) 98 01/08/19 20:00 16 Mechanical Ventilator 28 01/08/19 20:00 Mechanical Ventilator 01/08/19 20:00 93 01/08/19 19:30 92 17 117/52 (73) 100 01/08/19 19:00 94 17 105/49 (67) 100 01/08/19 19:00 15 Mechanical Ventilator 28 01/08/19 19:00 97 18 30 01/08/19 18:30 96 15 117/63 (81) 100 01/08/19 18:00 19 Mechanical Ventilator 28 01/08/19 18:00 101 19 117/63 (81) 100 01/08/19 17:30 97 17 117/63 (81) 100 01/08/19 17:18 96 115/59 01/08/19 17:17 18 Mechanical Ventilator 28 01/08/19 17:00 18 Mechanical Ventilator 28 01/08/19 17:00 95 17 115/59 (77) 100 01/08/19 17:00 96 18 115/59 (77) 100 01/08/19 16:55 98 18 30 01/08/19 16:30 98 19 123/60 (81) 100 01/08/19 16:18 Mechanical Ventilator 28 01/08/19 16:00 98 16 136/62 (86) 96 01/08/19 16:00 28 01/08/19 16:00 Mechanical Ventilator 01/08/19 16:00 98.1 01/08/19 16:00 96 01/08/19 15:45 89 13 127/60 (82) 100 01/08/19 15:30 98 23 127/60 (82) 100 01/08/19 15:15 95 15 122/62 (82) 100 01/08/19 15:15 100 20 30 01/08/19 15:00 Mechanical Ventilator 30 01/08/19 15:00 97 16 122/62 (82) 100 01/08/19 14:45 95 16 120/70 (87) 100 01/08/19 14:45 14 Mechanical Ventilator 30 01/08/19 14:30 101 21 120/70 (87) 98 01/08/19 14:00 101 22 120/70 (87) 100 01/08/19 14:00 14 Mechanical Ventilator 30 01/08/19 13:30 106 19 148/126 (133) 99 Condition: improving Lungs: clear Heart: regular rhythm, no gallop/murmur, tachycardia Abdomen: soft, other - Tender, no BS Extremities: no C/C/E Micro: Microbiology Date/Time Source Procedure Growth Status 01/07/19 04:15 Blood Blood Culture - Preliminary NO GROWTH AFTER 48 HOURS Resulted 01/08/19 16:00 Stool Clostridium difficile Toxin Assay - Final Complete 01/06/19 22:30 Abdominal Fluid Gram Stain - Final Resulted 01/06/19 22:30 Body Fluid Culture - Preliminary Sun Albicans Resulted Accucheck: 178 Micha Ziegler MD Jan 09, 2019 13:32
[2019-01-09] MEDS ORDERED: Metoprolol Succinate XL 25mg tab ORAL SCH (13:45)
--- NOTE | 2019-01-09 13:45 | NUR ---
NURSE NOTES: Dr. Ziegler at bedside assessing patient. Metoprolol order changed to 50MG PO daily for high B/P. Metoprolol 25MG PO x1 was also ordered in addition to this morning's dose. Will monitor effect on B/P.
--- NOTE | 2019-01-09 15:15 | NUR ---
NURSE NOTES: Patient's axillary temp 100.0. Removed blanket and pt had 1 teaspoon ice chips. Will reassess.
--- NOTE | 2019-01-09 15:16 | NUR ---
NURSE NOTES: Small amount of greenish brown leakage noted on right lower abdomen under ostomy bag. Pt is still complaining of 10/10 . Will give her another dose of PRN Fentanyl. Called and left a message to Dr Sotomayor regarding pt's abdominal pain 10/10, her feeling of pressure on the surgical site, and leakage on abdominal dressing. Awaiting call back for new orders. Addendum: 01/09/19 at 1552 by TEJINDER WHITE RN RN NURSE NOTES: Small amount of greenish brown leakage noted on the dressing o the right lower abdomen near ostomy bag. Pt is still complaining of abdominal pain 10/10 . Will give her another dose of PRN Fentanyl as ordered. Called and left a message to Dr Sotomayor regarding pt's abdominal pain 10/10, her feeling of pressure on the surgical site, and leakage on abdominal dressing. Awaiting call back for new orders.
--- NOTE | 2019-01-09 15:25 | NUR ---
NURSE NOTES: Dr Sotomayor called back. Updated him with pt's current condition. Orders received, noted, and carried out.
[2019-01-09] MEDS ORDERED: Ketorolac 30mg Inj IV SCH (15:30)
--- NOTE | 2019-01-09 15:33 | NUR ---
NURSE NOTES: Toradol 30mg IV STAT once dose given as ordered for 01/29 surgical site on abdomen. Will reassess pain.
--- NOTE | 2019-01-09 16:00 | NUR ---
NURSE NOTES: Pt is now afebrile axillary 98.9. Bottom sheet changed, pt tolerated turning well. Repositioned pt.
--- NOTE | 2019-01-09 18:30 | NUR ---
NURSE NOTES: Dr. Shelby at bedside assessing patient. Updated him on patient's current condition. Pt reports tramadol is working better for abdominal pain. Blood glucose 174, covered with 6 units Novolog insulin, as ordered. No distress noted.
--- NOTE | 2019-01-09 18:40 | Infectious Diseases Prog Note ---
Assessment/Plan Assessment/Plan ASSESSMENT AND PLAN: 1. leukocytosis, fevers, ? sepsis, possible intra-abdominal infection/early sbo , s/p exploratory laparotomy and small bowel segmental resection, fungemia risk with hx of tpn and abx, + picc line s/p surgery for post-operative leak - 01/07/19, bfc with jeff albicans - antibiotics - vancomycin, meropenem and micafungin - f/u on surveillance cultures - monitor labs, leukocytosis better, lgt noted - icu care - operative notes reviewed - d/w RN 2. 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 3. Liver transplantation. 4. Sclerosing cholangitis. 5. Ulcerative colitis. 6. The patient is anemic. 7. History of cholecystectomy, appendectomy, hysterectomy, and proctocolectomy. 8. History of multiple abdominal operations. 9. Allergies to codeine, hydromorphone, metoclopramide, morphine, and sulfa. 10. Family doctor is Noncontributory. 11. Social history is negative. 12. MAR was noted. 13. Case discussed with RN. 14. Case discussed with the patient. 15. Continue treatment per Dr. Sotomayor and consultants. Subjective Constitutional: Reports: fever - lgt x 1 - 100.0 HEENT: Denies: congestion Respiratory: Denies: shortness of breath Cardiovascular: Denies: chest pain Gastrointestinal/Abdominal: Reports: other - abdominal pain controlled better ; Denies: nausea, vomiting Genitourinary: Reports: other - + morales Neurologic: Denies: headache Psychiatric: Denies: depression Skin: Denies: rash Hematologic: Denies: bleeding Musculoskeletal: Reports: pain - pain controlled better Allergies: Coded Allergies: CODEINE (Verified Allergy, Severe, 12/17/18) Face contractions HYDROMORPHONE (Verified Allergy, Severe, Itching, 12/17/18) Itching whole body METOCLOPRAMIDE (Verified Allergy, Severe, 12/17/18) Face contractions MORPHINE (Verified Allergy, Severe, Shortness of Breath, 12/17/18) SULFA (SULFONAMIDE ANTIBIOTICS) (Verified Allergy, Severe, 12/17/18) Face contractions Objective Vital Signs Last 24 Hour Vital Signs Date Time Temp Pulse Resp B/P (MAP) Pulse Ox O2 Delivery O2 Flow Rate FiO2 01/09/19 18:18 103 125/67 01/09/19 17:00 99 21 146/74 (98) 99 01/09/19 16:47 103 01/09/19 16:00 2.0 01/09/19 16:00 Nasal Cannula 2.0 01/09/19 16:00 98.9 102 16 136/73 (94) 99 01/09/19 15:15 100.0 105 18 154/75 (101) 98 01/09/19 15:00 106 20 136/77 (96) 98 01/09/19 14:10 103 145/76 01/09/19 14:00 106 19 145/76 (99) 99 01/09/19 13:00 102 18 144/76 (98) 99 01/09/19 12:00 98.0 101 17 128/75 (92) 100 01/09/19 12:00 Nasal Cannula 3.0 01/09/19 12:00 2.0 01/09/19 11:48 101 01/09/19 11:30 103 18 110/72 (85) 100 01/09/19 11:00 105 18 161/70 (100) 100 01/09/19 10:56 161/67 01/09/19 10:56 102 161/67 01/09/19 10:55 102 161/67 01/09/19 10:45 103 18 161/67 (98) 99 01/09/19 10:30 106 20 163/67 (99) 99 01/09/19 10:15 103 15 152/61 (91) 99 01/09/19 10:00 101 21 152/59 (90) 99 01/09/19 09:50 97.6 01/09/19 09:45 Nasal Cannula 3.0 32 01/09/19 09:40 Nasal Cannula 3.0 01/09/19 09:40 99.4 99 16 158/61 (93) 99 01/09/19 09:29 97.6 97 16 165/71 100 Nasal Cannula 3 01/09/19 09:15 98 17 159/77 98 Nasal Cannula 3 01/09/19 09:10 94 18 160/76 97 Nasal Cannula 3 01/09/19 09:00 96 15 163/80 100 Nasal Cannula 3 01/09/19 08:50 97 17 166/75 100 Simple Mask 6 01/09/19 08:48 91 16 99 01/09/19 08:45 96 14 147/82 99 Simple Mask 6 01/09/19 08:40 97.8 91 16 128/72 99 Simple Mask 6 01/09/19 07:20 Mechanical Ventilator 01/09/19 07:20 28 01/09/19 07:10 111 01/09/19 07:00 99.4 112 21 107/82 (90) 100 01/09/19 07:00 21 Mechanical Ventilator 28 01/09/19 06:40 112 22 28 01/09/19 06:00 102 21 164/63 (96) 99 01/09/19 06:00 16 Mechanical Ventilator 28 01/09/19 05:30 95 16 142/63 (89) 99 01/09/19 05:21 89 19 30 01/09/19 05:00 85 14 139/63 (88) 100 01/09/19 05:00 14 Mechanical Ventilator 28 01/09/19 04:30 85 13 103/55 (71) 100 01/09/19 04:00 98.9 91 13 133/56 (81) 100 01/09/19 04:00 28 01/09/19 04:00 13 Mechanical Ventilator 28 01/09/19 04:00 Mechanical Ventilator 01/09/19 04:00 104 01/09/19 03:30 89 14 99/63 (75) 100 01/09/19 03:06 98 18 30 01/09/19 03:00 19 Mechanical Ventilator 28 01/09/19 03:00 97 19 150/66 (94) 99 01/09/19 02:48 Mechanical Ventilator 28 01/09/19 02:30 89 14 127/47 (73) 100 01/09/19 02:00 92 14 90/50 (63) 01/09/19 02:00 15 Mechanical Ventilator 28 01/09/19 01:30 106 16 119/55 (76) 97 01/09/19 01:00 97 18 30 01/09/19 01:00 24 Mechanical Ventilator 28 01/09/19 01:00 108 24 127/69 (88) 99 01/09/19 00:30 111 16 154/62 (92) 98 01/09/19 00:00 97 01/09/19 00:00 28 01/09/19 00:00 Mechanical Ventilator 01/09/19 00:00 19 Mechanical Ventilator 28 01/09/19 00:00 99.4 99 19 149/58 (88) 99 01/08/19 23:30 98 19 127/75 (92) 99 01/08/19 23:15 99 19 30 01/08/19 23:00 92 15 108/60 (76) 99 01/08/19 23:00 16 Mechanical Ventilator 28 01/08/19 22:30 95 14 139/58 (85) 100 01/08/19 22:00 15 28 01/08/19 22:00 89 15 103/49 (67) 100 01/08/19 21:36 99 18 30 01/08/19 21:30 89 15 103/76 (85) 100 01/08/19 21:00 89 15 91/51 (64) 100 01/08/19 21:00 15 Mechanical Ventilator 28 01/08/19 20:30 96 17 126/55 (78) 99 01/08/19 20:00 28 01/08/19 20:00 98.7 95 16 131/73 (92) 98 01/08/19 20:00 16 Mechanical Ventilator 28 01/08/19 20:00 Mechanical Ventilator 01/08/19 20:00 93 01/08/19 19:30 92 17 117/52 (73) 100 01/08/19 19:00 94 17 105/49 (67) 100 01/08/19 19:00 15 Mechanical Ventilator 28 01/08/19 19:00 97 18 30 Height (Feet): 5 Height (Inches): 3.00 Weight (Pounds): 149 General Appearance: no acute distress HEENT: normocephalic, atraumatic, anicteric, mucous membranes moist, EOMI, supple, no JVD Respiratory/Chest: lungs clear, normal breath sounds, no respiratory distress, no accessory muscle use Cardiovascular: normal rate, regular rhythm, no gallop/murmur, no JVD Abdomen: hypoactive bowel sounds, other - some pain on palpation, incisions covered Genitourinary: other - + morales - urine clear Extremities: no cyanosis Skin: no rash Neurologic/Psychiatric: concrete saw operator II-XII 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 Good bowel and bag opacification with no evidence of bowel obstruction. Unusual, markedly distended unopacified loop of bowel in the pelvis. Although unopacified, this does not appear to be an abscess as there is a wall and other characteristics more in keeping with bowel. Would consider a large diverticulum or possibly remnant of the previous Kock pouch or part of the small bowel leading to the old pouch as those segments are sometimes quite distended. Status post liver transplant. Status post cholecystectomy. Mild basal atelectasis. Chest x-ray - no pna, report noted CT abdomen/pelvis - 12/30/18 - Impression: Postsurgical changes, as described Unusual tubular structure filled mostly with gas but also some fluid communicating with the small bowel at the site of a right lower quadrant enteroenterostomy. Uncertain as to whether this represents an unusual large diverticulum, a true extraluminal gas collection, or a portion of an old continent ileostomy pouch. This is also previously described Dilated proximal small bowel proximal to the enteroenterostomy with slow forward propulsion of contents. Partial small bowel obstruction not completely excludable although unlikely given evidence of forward propulsion of contrast and filling of the ileostomy on prior 12/26/2018 exam; findings most likely functional in nature. Correlate with clinical findings Small anterior pelvic and deep pelvic fluid pockets, most likely represent retained postoperative fluid collections. Abscess as etiology of any of these not completely excludable; correlation with clinical findings recommended Postsurgical changes of the liver status post transplantation Punctate nonobstructing bilateral intrarenal calculi Bilateral basilar pulmonary parenchymal atelectasis and/or scarring Chest x-ray - 01/07/19 - Images previously reviewed in person with Dr. Sotomayor Interval placement of a right transjugular central line, catheter tip in the region of the high right atrium. Left arm PICC line remains in place with the catheter tip at the cavoatrial junction. No evidence of pneumothorax. No definite focal airspace consolidation or pleural effusion. Surgical clips noted projecting over the upper abdomen. Microbiology Date/Time Source Procedure Growth Status 01/07/19 04:15 Blood Blood Culture - Preliminary NO GROWTH AFTER 48 HOURS Resulted 01/08/19 16:00 Stool Clostridium difficile Toxin Assay - Final Complete 01/06/19 22:30 Abdominal Fluid Gram Stain - Final Resulted 01/06/19 22:30 Body Fluid Culture - Preliminary Jeff Albicans Resulted Laboratory Tests Test 01/09/19 04:00 White Blood Count 13.8 K/UL (4.8-10.8) H Red Blood Count 2.96 M/UL (4.20-5.40) L Hemoglobin 9.0 G/DL (12.0-16.0) L Hematocrit 28.0 % (37.0-47.0) L Mean Corpuscular Volume 95 FL (80-99) Mean Corpuscular Hemoglobin 30.3 PG (27.0-31.0) Mean Corpuscular Hemoglobin Concent 32.1 G/DL (32.0-36.0) Red Cell Distribution Width 14.0 % (11.6-14.8) Platelet Count 417 K/UL (150-450) Mean Platelet Volume 5.4 FL (6.5-10.1) L Neutrophils (%) (Auto) 81.9 % (45.0-75.0) H Lymphocytes (%) (Auto) 5.4 % (20.0-45.0) L Monocytes (%) (Auto) 7.0 % (1.0-10.0) Eosinophils (%) (Auto) 4.8 % (0.0-3.0) H Basophils (%) (Auto) 1.0 % (0.0-2.0) Sodium Level 139 MMOL/L (136-145) Potassium Level 4.7 MMOL/L (3.5-5.1) Chloride Level 108 MMOL/L (98-107) H Carbon Dioxide Level 25 MMOL/L (21-32) Anion Gap 6 mmol/L (5-15) Blood Urea Nitrogen 30 mg/dL (7-18) H Creatinine 1.0 MG/DL (0.55-1.30) Estimat Glomerular Filtration Rate 55.3 mL/min (>60) Glucose Level 172 MG/DL (74-106) H Calcium Level 9.7 MG/DL (8.5-10.1) Total Bilirubin 0.3 MG/DL (0.2-1.0) Aspartate Amino Transf (AST/SGOT) 20 U/L (15-37) Alanine Aminotransferase (ALT/SGPT) 30 U/L (12-78) Alkaline Phosphatase 419 U/L (46-116) H Total Protein 5.5 G/DL (6.4-8.2) L Albumin 1.5 G/DL (3.4-5.0) L Globulin 4.0 g/dL Albumin/Globulin Ratio 0.4 (1.0-2.7) L Current Medications Medications (Trade) Dose Ordered Sig/Kajal Route PRN Reason Start Time Stop Time Status Last Admin Dose Admin Acetaminophen (Tylenol) 650 mg Q4H PRN ORAL Mild Pain/Temp > 100.2 01/04/19 21:00 01/25/19 20:59 Acetaminophen (Tylenol) 650 mg Q6H PRN ORAL headache 01/04/19 20:45 01/16/19 14:44 Al Hydroxide/Mg Hydroxide (Mylanta) 30 ml Q6H PRN ORAL dyspepsia 01/04/19 21:30 01/27/19 09:29 Amlodipine Besylate (Norvasc) 5 mg BID ORAL 01/05/19 09:00 02/02/19 08:59 01/09/19 18:18 Chlorhexidine Gluconate (Yulia-Hex 2%) 1 applic DAILY@2000 TOPIC 01/04/19 20:00 01/16/19 19:59 01/08/19 20:05 Clonidine HCl (Catapres Tab) 0.1 mg Q6H PRN SL SBP>150 mmHg 01/04/19 22:00 01/21/19 21:59 01/05/19 11:56 Dextrose 1,000 ml @ 0 mls/hr Q24H PRN IV PN interrupted or unavailable 01/04/19 20:00 01/19/19 19:59 Dextrose (Dextrose 50%) 25 ml Q30M PRN IV Hypoglycemia 01/04/19 19:15 01/21/19 12:44 Dextrose (Dextrose 50%) 50 ml Q30M PRN IV Hypoglycemia 01/04/19 19:15 01/21/19 12:44 Dextrose/ Electrolytes 1,000 ml @ 50 mls/hr Q20H IV 01/04/19 20:00 02/02/19 19:59 01/08/19 21:18 Diphenhydramine HCl (Benadryl) 50 mg Q4H PRN ORAL Itching 01/04/19 20:00 01/26/19 19:59 Famotidine (Pepcid I.v.) 20 mg Q12HR IVP 01/04/19 21:00 02/02/19 08:59 01/09/19 10:55 Fat Emulsion Intravenous 216 ml/Amino Acids/ Electrolytes/ Dextrose 1,776 ml @ 74 mls/hr Q24H IV 01/04/19 20:00 01/29/19 19:59 01/08/19 20:04 Fentanyl (Duragesic) 1 patch Q72H TDERMAL 01/09/19 09:00 01/16/19 08:59 01/09/19 09:07 Fentanyl Citrate (Sublimaze 100 mcg/2 mL) 12.5 mcg Q2H PRN IV Breakthrough Pain 01/09/19 10:45 01/16/19 10:44 01/09/19 13:03 Hydralazine HCl (Apresoline) 10 mg Q4H PRN IV For High Blood Pressure 01/05/19 12:19 02/04/19 12:18 01/07/19 18:36 Insulin Aspart (NovoLOG) Q6HR SUBQ 01/05/19 00:00 01/21/19 17:59 01/09/19 18:26 Ketorolac Tromethamine (Toradol 30mg) 15 mg Q6H PRN IV Breakthrough Pain 01/09/19 16:00 01/14/19 15:59 Levothyroxine Sodium (Synthroid) 100 mcg DAILY IV 01/05/19 09:00 02/04/19 08:59 01/09/19 11:18 Lidocaine (Lidoderm 5% PATCH) 1 patch DAILY TDERMAL 01/04/19 19:00 02/03/19 18:29 01/08/19 20:09 Lidocaine (Lidoderm 5% PATCH) 1 patch DAILY TDERMAL 01/04/19 19:00 02/03/19 18:29 01/08/19 20:09 Lisinopril (Prinivil) 40 mg DAILY ORAL 01/05/19 09:00 01/30/19 08:59 01/09/19 10:56 Meropenem 1 gm/ Sodium Chloride 100 ml @ 200 mls/hr Q8HR IVPB 01/07/19 18:00 01/12/19 17:59 01/09/19 13:51 Metoprolol Succinate (Toprol XL) 50 mg DAILY ORAL 01/10/19 09:00 01/23/19 08:59 Micafungin Sodium 100 mg/Sodium Chloride 110 ml @ 110 mls/hr Q24H IVPB 01/08/19 20:00 01/14/19 19:59 01/08/19 20:05 Miscellaneous Medication (fentaNYL Destruction) 1 ea Q72H MISC 01/12/19 06:00 02/11/19 05:59 Mycophenolate Mofetil (Cellcept) 750 mg Q12HR ORAL 01/04/19 21:00 01/24/19 08:59 01/09/19 10:57 Naloxone HCl (Narcan) 0.1 mg PRN IV Sedation scale 3 or 4 01/04/19 19:00 02/03/19 13:44 Ondansetron HCl (Zofran) 4 mg Q6H PRN IVP Nausea & Vomiting 01/04/19 19:15 01/20/19 07:14 01/06/19 02:36 Pantoprazole (Protonix) 40 mg DAILY IVP 01/05/19 09:00 01/25/19 08:59 01/09/19 10:55 Prochlorperazine (Compazine) 10 mg Q6H PRN IVP Nausea & Vomiting 01/04/19 20:00 01/19/19 19:59 01/07/19 18:58 Tacrolimus (Prograf) 1 mg DAILY ORAL 01/05/19 09:00 02/04/19 08:59 01/09/19 10:57 Tacrolimus (Prograf) 2 mg BEDTIME ORAL 01/04/19 21:00 01/16/19 20:59 01/08/19 20:06 Trazodone HCl (Desyrel) 25 mg HSPRN PRN ORAL INSOMNIA 01/04/19 20:00 02/03/19 19:59 01/05/19 03:02 Vancomycin HCl (Vanco rx to dose) 1 ea DAILY PRN MISC Per rx protocol 01/06/19 12:15 02/05/19 12:14 Vancomycin HCl 500 mg/Dextrose 110 ml @ 110 mls/hr Q12HR@0300,1500 IVPB 01/06/19 15:00 01/11/19 14:59 01/09/19 15:20 Philly Shelby MD Jan 09, 2019 18:40
--- NOTE | 2019-01-09 19:10 | NUR ---
HAND-OFF: Report given to PATRICK Stephenson.
--- NOTE | 2019-01-09 20:00 | NUR ---
NURSE NOTES: Patient received from Bart NGUYEN and Alivia RN. Patient is alert and oriented to place, time, name and purpose. Patient is s/p surgery today removal of wound vac and closure of abdominal wall. Currently patients has abdominal dressing that are dry and intact. Kock pouch noted on left upper quadrant. HAROLDO drain noted on mid-lower left quadrant draining serosanguineous fluid. G-tube also noted draining to gravity. Patient noted to have MARILY double lumen PICC line infusing TPN at 74ml/hr. PICC line dressing is dry and intact. Right IJ noted TLC infusing D51/2NS w/40KCl at 50ml/hr and other lumen is TKO, TLC dressing is also dry and intact. Patient has SCD's on. Bed in lowest position and bed alarm is on. Call light is within reach. Will continue to monitor.
[2019-01-09] MEDS: Ketorolac 30mg Inj IV PRN (20:04)
[2019-01-09] MEDS: D5 1/2NS w/KCl 40meq 1000ml 1,000 ML IV SCH (20:04)
--- NOTE | 2019-01-09 20:04 | NUR ---
NURSE NOTES: Toradol 15mg IVP given for pain. Patient stated of having abdominal pain rated 10/10 hernandez issa scale.
[2019-01-09] MEDS: Fat Emulsion Iv 20% 216 ML in Tpn 1,560 ML IV SCH (20:30)
[2019-01-09] MEDS: Dyna-Hex 2% Top Sol 2oz TOPIC SCH (20:31)
[2019-01-09] MEDS: Micafungin 100 MG in NS 110 ML IVPB SCH (20:31)
--- NOTE | 2019-01-09 21:00 | NUR ---
NURSE NOTES: Med flush 70ml. Patient is able to repositioned. Patient is proactively using incentive spirometer
[2019-01-09] MEDS: TraZODone HCl 25 mg tablet ORAL PRN (21:43)
--- NOTE | 2019-01-09 21:43 | NUR ---
NURSE NOTES: trazodone 25mg given via gtube for sleep aid. Patients vitals remains stable and also remains AAX4.
[2019-01-10] VITALS (28 sets, daily range): BP systolic 103–157; BP diastolic 51–89
--- NOTE | 2019-01-10 | NUR ---
NURSE NOTES: temperature is 99.9. Cooling measures in effect. Glucose was 193, coverage was provided. Patient continues to have tolerable pain. Dressings remains dry and intact. Addendum: 01/10/19 at 0443 by OLLIE MIRAMONTES RN 10ml serosanguineous fluid emptied from HAROLDO drain.
--- NOTE | 2019-01-10 02:00 | NUR ---
NURSE NOTES: Patient having tolerable abdominal pain. Patients vitals are stable, respiratory rate is above 16. Awake and oriented. Low grade fevers continue. Cooling measure still ongoing. Will continue to monitor.
[2019-01-10] MEDS: Ketorolac 30mg Inj IV PRN ×2 (02:52→14:37)
[2019-01-10] MEDS: Vancomycin 500 MG in D5W 110 ML IVPB SCH ×2 (02:53→14:39)
--- NOTE | 2019-01-10 04:00 | NUR ---
NURSE NOTES: labs were frawn and sent to lab. Abdominal pain rating 5/10 Valdez issa scale. about 7ml of serosangousne fluid emptied from HAROLDO drain. Patient able to self reposition. Low grade fevers continue. Will continue to monitor.
[2019-01-10] MEDS: NovoLOG Insulin Flexpen SUBQ SCH ×4 (05:13→23:58)
[2019-01-10 05:38] LABS: BASOPHILS % (AUTO) 0.6 % (0.0-2.0); EOSINOPHILS % (AUTO) 5.8 % (0.0-3.0); HEMATOCRIT 30.8 % (37.0-47.0); HEMOGLOBIN 9.9 G/DL (12.0-16.0); LYMPHOCYTES % (AUTO) 8.7 % (20.0-45.0); MEAN CORPUSCULAR VOLUME 93 FL (80-99); NEUTROPHILS % (AUTO) 77.9 % (45.0-75.0); PLATELET COUNT 453 K/UL (150-450); RED CELL DISTRIBUTION WIDTH 13.3 % (11.6-14.8); WHITE BLOOD COUNT 14.7 K/UL (4.8-10.8)
--- NOTE | 2019-01-10 06:00 | NUR ---
NURSE NOTES: Patients vitals remains stable. patient still has tolerable pain in abdomen area. Dressing remains dry and intact. No acute changes overnight.
[2019-01-10 06:20] LABS: ALANINE AMINOTRANSFERASE 28 U/L (12-78); ALBUMIN 1.7 G/DL (3.4-5.0); ALBUMIN/GLOBULIN RATIO 0.4 (1.0-2.7); ALKALINE PHOSPHATASE 367 U/L (46-116); ANION GAP 10 mmol/L (5-15); ASPARTATE AMINO TRANSFERASE 21 U/L (15-37); BILIRUBIN,TOTAL 0.2 MG/DL (0.2-1.0); BLOOD UREA NITROGEN 26 mg/dL (7-18); CALCIUM 9.6 MG/DL (8.5-10.1); CARBON DIOXIDE 23 MMOL/L (21-32); CHLORIDE 101 MMOL/L (98-107); CREATININE 1.1 MG/DL (0.55-1.30); PHOSPHORUS 2.5 MG/DL (2.5-4.9); SODIUM 134 MMOL/L (136-145)
--- NOTE | 2019-01-10 08:10 | NUR ---
NURSE NOTES: Patient received from Sachin NGYUEN. Patient asleep when received with no apparent signs and symptoms of pain and acute distress. General appearance appropriate for ethnicity.Noted with low grade fever of 99.9F will follow up with cooling measure. Patient is SR on the monitor and on oxygen via nasal canula at 2LPM saturation 100% at this time.Abdomen tender to touch with bowel sounds present.Ileostomy left upper quadrant with dark green drainage bile like. Gastric tube in place draining and flush to gravity with 20cc NS given. HAROLDO drain in place mid-lower left quadrant draining serosanguineous fluid, 10cc noted at this time. MARILY double lumen PICC line running TPN at 74ml/hr with dressing clean dry and intact changed on 01/09 at 1600. Right also in place running D51/2NS w/40KCl at 50ml/hr with dressing dry and intact changed on 01/05 at 2030. Pickett catheter in place draining yellow/straw urine with no apparent sediments or odor.Catheter secure and perineal care done.No edema noted, SCD's in place and release couple minute for comfort and skin management.No skin impairment noted.Trapeze bar on the bed to help self repositioning, 3/4 siderails up for safety and positioning. Call light within easy reach with bed locked in low position and bed alarm on. Patient remains 1:1 and kept on close monitoring. Addendum: 01/10/19 at 1626 by Krupa Carvajal RN SPIROMETER ACHIEVED 500CC WITH 2 BREATHS
[2019-01-10] MEDS ORDERED: NS Irrig 1000ml ONE (08:37)
[2019-01-10] MEDS ORDERED: NS 275ml ONE (08:37)
[2019-01-10] MEDS: Pantoprazole Inj IVP SCH (08:41)
[2019-01-10] MEDS: Mycophenolate 250mg cap ORAL SCH ×2 (08:41→21:00)
[2019-01-10] MEDS: Lisinopril 20mg tab ORAL SCH (08:42)
[2019-01-10] MEDS: Metoprolol Succinate XL 25mg tab ORAL SCH (08:43)
--- NOTE | 2019-01-10 09:23 | NUR ---
NURSE NOTES: Patient seen and examine by Dr Batista, will follow up if any new order
--- NOTE | 2019-01-10 10:04 | General Progress Note ---
Progress Note Progress Note Tmax 100. VSS Comfortable with Fentanyl + low dose Toradol Abdomen soft, incision clean, stoma pink HAROLDO drain 82cc serous - no enteric fluid Urine 3860 Gastrostomy 950 Ileostomy 500 enteric WBC 14,700 Hgb 9.9 BUN 26 Cr 1.1 Mg 1.4 Albumin 1.7 Imp: Stable status-post multiple operations in 1 week with repairs of intestinal perforations x 2 Plan: continue current regimen with TPN, Pickett, HAROLDO drain will mobilize out-of-bed in AM with abdominal binder on at all times Lars Sotomayor MD Jan 10, 2019 10:04
--- NOTE | 2019-01-10 10:10 | NUR ---
NURSE NOTES: Patient seen by Dr Sotomayor and made aware of low grade fever 99.9F ,dark greenish drainage in ileostomy and greenish output from gastric tube. Magnesium covered and will follow up with other new orders.Patient help in self repositioning and refused mouth care at this time.Denied of any pain and discomfort at this time.Remains on close monitoring Addendum: 01/10/19 at 1933 by Krupa Carvajal RN SURGICAL SITE DRESSING CHANGED BY DR SOTOMAYOR
--- NOTE | 2019-01-10 11:03 | NUR ---
NURSE NOTES: SPIROMETER GOAL ACHIEVE 500 WITH 2 BREATHS
--- NOTE | 2019-01-10 12:14 | NUR ---
NURSE NOTES: Patient asleep, easily arousal to tactile and verbal stimuli. visited and update given. Noted with a Temperature of 100.0F will continue to monitor and cooling measure applied. , currently on Meropenem and Vancomycin ATB. Spirometer teaching provided and goal of 500 reach at this for 2 breaths.Call light within easy reach. Kept on close monitoring
--- NOTE | 2019-01-10 13:02 | NUR ---
NURSE NOTES: SPIROMETER GOAL ACHIEVED 500 WITH 6 BREATHS
--- NOTE | 2019-01-10 14:11 | NUR ---
NURSE NOTES: Patient asleep,no apparent sign acute distress, output and input recorded hourly, abdominal binder placed will follow up with extra large size as pt stated its too thigh.Pt help in self repositioning.Kept clean dry and comfortable.
--- NOTE | 2019-01-10 15:11 | NUR ---
NURSE NOTES: Received called from Dr Ziegler (hopper feeder) and made aware of episode of tachycardia. Update given and as stated he come soon to see the patient. Tylenol given for headache and effective with Toradol for breakthrough pain. Pt stated she is comfortable at this time.Call light within easy reach Addendum: 01/10/19 at 1628 by Krupa Carvajal RN SPIROMETER GOALS ACHIEVE 600 WITH 8 BREATHS
--- NOTE | 2019-01-10 15:33 | NUR ---
NURSE NOTES: Patient seen by Dr Ziegler and bedside update given, will follow up with new orders
--- NOTE | 2019-01-10 15:43 | Critical Care Progress Note ---
Assessment/Plan Status Narrative UC s/p revision of Kock pouch status-post multiple operations in 1 week with repairs of intestinal perforations x 2 HTN Low grade fever- R/O atelectasis due to hypoventilation vs. GI etiology Post Op pain - stable. Assessment/Plan ICU monitor IV Fluids TPN Metoprolol 50 mg/day per GT PO meds given by GT. Clonidine 0.1 mg Q6 h PRN- may increase as needed Hydralazine IV PRN Monitor I/Os Monitor labs. I/S Q 1h Pain management- Discussed with ICU Staff If fever not improved , will order CXR. Critical Care - Subjective Interval Events: Was unable to sleep last nite. Having low grade fever Pain controlled NPO Condition: improving IV Access: central EKG Rhythm: Sinus Tachycardia IV Fluids: D5 1/2 NS @ 50 cc/h Drips: TPN @ 74 cc/h I&O: Intake and Output 01/09/19 01/10/19 19:00 07:00 Intake Total 2340 ml 2018 ml Output Total 3445 ml 2412 ml Balance -1105 ml -394 ml Free Water 40 ml 110 ml IV Total 2300 ml 1908 ml Output Urine Total 2615 ml 1685 ml Gastric Drainage Total 100 ml Drainage Total 80 ml 27 ml Other 650 ml 700 ml Critical Care - Objective CXR: Has been doing OK overall. ET-Tube: 7.0 ET Position: 20 Last 24 Hour Vital Signs Date Time Temp Pulse Resp B/P (MAP) Pulse Ox O2 Delivery O2 Flow Rate FiO2 01/10/19 15:00 93 15 130/58 (82) 100 01/10/19 14:00 102 22 141/74 (96) 99 01/10/19 13:43 100 Nasal Cannula 2.0 28 01/10/19 13:00 99 18 143/65 (91) 100 01/10/19 12:00 100.0 95 15 126/84 (98) 94 01/10/19 12:00 Nasal Cannula 2.0 01/10/19 12:00 74 01/10/19 12:00 2.0 01/10/19 11:00 91 15 123/60 (81) 100 01/10/19 10:00 94 14 142/61 (88) 100 01/10/19 09:00 96 14 122/66 (84) 100 01/10/19 08:43 97 103/55 9/21/19 08:43 97 103/55 01/10/19 08:42 103/55 01/10/19 08:00 Nasal Cannula 2.0 01/10/19 08:00 2.0 01/10/19 08:00 97 12 103/55 (71) 100 01/10/19 08:00 99 01/10/19 07:00 99.9 98 20 116/62 (80) 100 01/10/19 06:00 92 12 121/57 (78) 100 01/10/19 05:00 94 13 142/64 (90) 99 01/10/19 04:00 Nasal Cannula 2.0 01/10/19 04:00 99 01/10/19 04:00 2.0 01/10/19 04:00 99.7 98 15 143/70 (94) 98 01/10/19 03:00 101 17 135/60 (85) 98 01/10/19 02:00 106 22 153/89 (110) 99 01/10/19 01:00 108 18 157/66 (96) 97 01/10/19 00:00 Nasal Cannula 2.0 01/10/19 00:00 102 01/10/19 00:00 2.0 01/10/19 00:00 99.9 100 20 131/73 (92) 98 01/09/19 23:00 98 17 154/77 (102) 98 01/09/19 22:00 97 20 135/61 (85) 99 01/09/19 21:00 95 13 144/59 (87) 99 01/09/19 20:00 Nasal Cannula 2.0 01/09/19 20:00 2.0 01/09/19 20:00 94 01/09/19 20:00 99.5 109 16 136/69 (91) 98 01/09/19 19:00 105 19 135/85 (102) 99 01/09/19 18:18 103 125/67 01/09/19 18:00 103 17 125/67 (86) 97 01/09/19 17:00 99 21 146/74 (98) 99 01/09/19 16:47 103 01/09/19 16:00 2.0 01/09/19 16:00 Nasal Cannula 2.0 01/09/19 16:00 98.9 102 16 136/73 (94) 99 Status: awake, alert, other - falls asleep easily Lungs: clear Heart: normal rate, regular rhythm, no gallop/murmur Abdomen: soft, other - min BS Extremities: no C/C/E Micro: Microbiology Date/Time Source Procedure Growth Status 01/08/19 16:00 Stool Clostridium difficile Toxin Assay - Final Complete Accucheck: 155 Micha Ziegler MD Jan 10, 2019 15:43
[2019-01-10] MEDS: D5 1/2NS w/KCl 40meq 1000ml 1,000 ML IV SCH (16:02)
--- NOTE | 2019-01-10 16:22 | NUR ---
NURSE NOTES: PT TURNED AND REPOSITIONED AND ENCOURAGED TO USE THE SPIROMETER. ABLE TO BLOW AT THIS TIME UNTIL 700 WITH 10 BREATHS.WILL CONTINUE TO MONITOR
--- NOTE | 2019-01-10 16:26 | NUR ---
NURSE NOTES: SPIROMETER GOALS ACHIEVE 600 WITH 8 BREATHS
--- NOTE | 2019-01-10 18:01 | NUR ---
NURSE NOTES: ADLS DONE, MOUTH CARE DONE,TURNED AND REPOSITIONED SCD RELEASE FOR COMFORT.SPIROMETER EXERTION DONE WITH 700 GOAL AT 6 BREATH. PT ASSISTED IN TURNING AND REPOSITIONING.KEPT CLEAN DRY AND COMFORTABLE
--- NOTE | 2019-01-10 19:32 | NUR ---
HAND-OFF: Report given to PATRICK Theodore.
--- NOTE | 2019-01-10 19:33 | NUR ---
NURSE NOTES: Endorsement received from PATRICK Gentile. Patient GCS 15/15. Reported no pain at this time. On 2 LPM oxygen per nasal cannula. With right IJ TLC, no resistance when flushed. Left upper arm PICC. Receiving TPN 74 ml/hr, D5 1/2 NS with KCl 40 meq at 50 ml/hr. With right ileostomy, stoma noted to be moist and bright red in color. Drainable bag present, intact and no leaking. Dressing at midabdomen also dry and intact. Left gastrostomy connected to drainable bag, draining per gravity. Noted with dark greenish output. HAROLDO drain present, kept on negative pressure. Noted with light pinkish drain.Abdominal binder present, with hole cut out over the ileostomy stoma. Pickett catheter in place. SCDs present. Patient on P200 mattress, bed with overhead trapeze. Bed locked and in low position. Bed alarm on. Head of bed elevated. Call light within visible reach. Reminded patient to use call light, verbalized understanding.
--- NOTE | 2019-01-10 19:45 | General Progress Note ---
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 - malnutrition, depressed Albumin, on TPN - Leukocytosis - abnormal lytes - hypothyroid Recommendations - Replace Mg - done - Abx per ID - Continue TPN - Check [place] level - d/c pepcid, since on PPI - follow labs - CT abd/Pelvis next week - RD input re TPN rate and protein - check pre-albumin - check phos - check TFT Subjective Allergies: Coded Allergies: CODEINE (Verified Allergy, Severe, 12/17/18) Face contractions HYDROMORPHONE (Verified Allergy, Severe, Itching, 12/17/18) Itching whole body METOCLOPRAMIDE (Verified Allergy, Severe, 12/17/18) Face contractions MORPHINE (Verified Allergy, Severe, Shortness of Breath, 12/17/18) SULFA (SULFONAMIDE ANTIBIOTICS) (Verified Allergy, Severe, 12/17/18) Face contractions Subjective Awake, in ICU weak, minimally interactive seen with RN at bedside on TPN low grade temp noted Objective Last 24 Hour Vital Signs Date Time Temp Pulse Resp B/P (MAP) Pulse Ox O2 Delivery O2 Flow Rate FiO2 01/10/19 18:00 86 16 152/51 (84) 100 01/10/19 17:56 86 136/64 01/10/19 17:00 84 13 119/52 (74) 100 01/10/19 16:00 90 01/10/19 16:00 99.6 89 15 130/58 (82) 100 01/10/19 16:00 2.0 01/10/19 16:00 Nasal Cannula 2.0 01/10/19 15:08 99.6 01/10/19 15:07 99.6 01/10/19 15:00 93 15 130/58 (82) 100 01/10/19 14:00 102 22 141/74 (96) 99 01/10/19 13:43 100 Nasal Cannula 2.0 28 01/10/19 13:00 99 18 143/65 (91) 100 01/10/19 12:00 100.0 95 15 126/84 (98) 94 9/21/19 12:00 Nasal Cannula 2.0 01/10/19 12:00 74 01/10/19 12:00 2.0 01/10/19 11:00 91 15 123/60 (81) 100 01/10/19 10:00 94 14 142/61 (88) 100 01/10/19 09:00 96 14 122/66 (84) 100 01/10/19 08:43 97 103/55 01/10/19 08:43 97 103/55 01/10/19 08:42 103/55 01/10/19 08:00 Nasal Cannula 2.0 01/10/19 08:00 2.0 01/10/19 08:00 97 12 103/55 (71) 100 01/10/19 08:00 99 01/10/19 07:00 99.9 98 20 116/62 (80) 100 01/10/19 06:00 92 12 121/57 (78) 100 01/10/19 05:00 94 13 142/64 (90) 99 01/10/19 04:00 Nasal Cannula 2.0 01/10/19 04:00 99 01/10/19 04:00 2.0 01/10/19 04:00 99.7 98 15 143/70 (94) 98 01/10/19 03:00 101 17 135/60 (85) 98 01/10/19 02:00 106 22 153/89 (110) 99 01/10/19 01:00 108 18 157/66 (96) 97 01/10/19 00:00 Nasal Cannula 2.0 01/10/19 00:00 102 01/10/19 00:00 2.0 01/10/19 00:00 99.9 100 20 131/73 (92) 98 01/09/19 23:00 98 17 154/77 (102) 98 01/09/19 22:00 97 20 135/61 (85) 99 01/09/19 21:00 95 13 144/59 (87) 99 01/09/19 20:00 Nasal Cannula 2.0 01/09/19 20:00 2.0 01/09/19 20:00 94 01/09/19 20:00 99.5 109 16 136/69 (91) 98 Intake and Output 01/09/19 01/10/19 19:00 07:00 Intake Total 2340 ml 2018 ml Output Total 3445 ml 2412 ml Balance -1105 ml -394 ml Free Water 40 ml 110 ml IV Total 2300 ml 1908 ml Output Urine Total 2615 ml 1685 ml Gastric Drainage Total 100 ml Drainage Total 80 ml 27 ml Other 650 ml 700 ml Laboratory Tests 01/10/19 04:00: White Blood Count 14.7H, Red Blood Count 3.30L, Hemoglobin 9.9L, Hematocrit 30.8L, Mean Corpuscular Volume 93, Mean Corpuscular Hemoglobin 30.1, Mean Corpuscular Hemoglobin Concent 32.3, Red Cell Distribution Width 13.3, Platelet Count 453H, Mean Platelet Volume 5.2L, Neutrophils (%) (Auto) 77.9H, Lymphocytes (%) (Auto) 8.7L, Monocytes (%) (Auto) 7.0, Eosinophils (%) (Auto) 5.8H, Basophils (%) (Auto) 0.6, Sodium Level 134L, Potassium Level 4.0, Chloride Level 101, Carbon Dioxide Level 23, Anion Gap 10, Blood Urea Nitrogen 26H, Creatinine 1.1, Estimat Glomerular Filtration Rate 49.6, Glucose Level 178H , Calcium Level 9.6, Phosphorus Level 2.5, Magnesium Level 1.4L, Total Bilirubin 0.2, Aspartate Amino Transf (AST/SGOT) 21, Alanine Aminotransferase ( ALT/SGPT) 28, Alkaline Phosphatase 367H, Total Protein 6.4, Albumin 1.7L, Globulin 4.7, Albumin/Globulin Ratio 0.4L Height (Feet): 5 Height (Inches): 3.00 Weight (Pounds): 150 Objective Thin WW NCAT supple CTA RR abd flat, (R) sided ostomy with dark stool, (+) LUQ GT and L sided drain, central wound no edema Simba Cardona MD Jan 10, 2019 19:45
[2019-01-10] MEDS: Dyna-Hex 2% Top Sol 2oz TOPIC SCH (19:58)
[2019-01-10] MEDS: Fat Emulsion Iv 20% 216 ML in Tpn 1,560 ML IV SCH (19:59)
[2019-01-10] MEDS: Micafungin 100 MG in NS 110 ML IVPB SCH (19:59)
--- NOTE | 2019-01-10 20:00 | NUR ---
NURSE NOTES: Fentanyl patch at right upper arm noted, intact. 2 Lidocaine patches noted at bilateral lower back. Received a call from Dr. Cardona, as per him he will put orders in.
--- NOTE | 2019-01-10 21:00 | NUR ---
NURSE NOTES: Patient about to go to sleep, she requested to keep the abdominal binder while asleep. Also educated patient to place soft pillow over the abdomen when coughing. Patient verbalized understanding.
[2019-01-11] VITALS (24 sets, daily range): BP systolic 121–163; BP diastolic 53–95
--- NOTE | 2019-01-11 | NUR ---
NURSE NOTES: Blood sugar checked and covered as per sliding scale. Patient awake, reported pain. PRN toradol given. Reeducated and demonstrated to the patient regarding splinting of abdomen with pillow when coughing. GT flushed with 20ml saline as ordered then drained per gravity to drainable bag. HAROLDO drain emptied and measured output. Kept at negative pressure. See. I&O sheet.
[2019-01-11] MEDS: Ketorolac 30mg Inj IV PRN ×3 (00:05→19:00)
--- NOTE | 2019-01-11 02:00 | NUR ---
NURSE NOTES: Patient asleep. Appears comfortable, no signs of pain. Afebrile. HAROLDO maintained on negative pressure. Gastrostomy draining per gravity, drainable collection bag changed.
[2019-01-11] MEDS: Vancomycin 500 MG in D5W 110 ML IVPB SCH ×2 (02:51→14:02)
--- NOTE | 2019-01-11 04:00 | NUR ---
NURSE NOTES: Bed bath, change of linens done. Dressing at midabdomen remains dry and intact. Abdominal binder kept in place. Patient tolerated activity
--- NOTE | 2019-01-11 04:15 | NUR ---
NURSE NOTES: Patient requested to have a break from SCDs. Informed the risks and benefits, SCD sleeves removed.
--- NOTE | 2019-01-11 04:30 | NUR ---
NURSE NOTES: Blood sample collected and sent to the lab
--- NOTE | 2019-01-11 05:00 | NUR ---
NURSE NOTES: Patient reported feelings of indigestion. PRN mylanta given per gastrostomy tube, clamped for 30 minutes then drained per gravity to drainage bag per order
[2019-01-11] MEDS: NovoLOG Insulin Flexpen SUBQ SCH ×3 (05:16→17:25)
[2019-01-11 05:30] LABS: BASOPHILS % (AUTO) 0.8 % (0.0-2.0); EOSINOPHILS % (AUTO) 8.3 % (0.0-3.0); HEMATOCRIT 30.9 % (37.0-47.0); HEMOGLOBIN 10.1 G/DL (12.0-16.0); LYMPHOCYTES % (AUTO) 6.6 % (20.0-45.0); MEAN CORPUSCULAR VOLUME 93 FL (80-99); MONOCYTES % (AUTO) 5.4 % (1.0-10.0); NEUTROPHILS % (AUTO) 78.9 % (45.0-75.0); PLATELET COUNT 459 K/UL (150-450); RED BLOOD COUNT 3.33 M/UL (4.20-5.40); RED CELL DISTRIBUTION WIDTH 13.4 % (11.6-14.8); WHITE BLOOD COUNT 11.7 K/UL (4.8-10.8)
[2019-01-11] MEDS: fentaNYL 100 mcg/2 mL IV PRN ×2 (05:52→15:18)
--- NOTE | 2019-01-11 06:00 | NUR ---
NURSE NOTES: Patient complained of severe pain at abdomen. Next dose of toradol not due until after 15-20 minutes. PRN Fentanyl given subcutaneously. Patient reported feeling of nausea, vomited 100ml of light green emesis. Head of bed elevated. Assisted with mouth care. PRN Zofran already given previously. PRN Compazine given.
[2019-01-11 06:06] LABS: ALANINE AMINOTRANSFERASE 28 U/L (12-78); ALBUMIN 1.6 G/DL (3.4-5.0); ALBUMIN/GLOBULIN RATIO 0.3 (1.0-2.7); ALKALINE PHOSPHATASE 341 U/L (46-116); ANION GAP 11 mmol/L (5-15); ASPARTATE AMINO TRANSFERASE 22 U/L (15-37); BILIRUBIN,TOTAL 0.2 MG/DL (0.2-1.0); BLOOD UREA NITROGEN 30 mg/dL (7-18); CALCIUM 9.7 MG/DL (8.5-10.1); CARBON DIOXIDE 22 MMOL/L (21-32); CHLORIDE 103 MMOL/L (98-107); CREATININE 1.2 MG/DL (0.55-1.30); POTASSIUM 4.3 MMOL/L (3.5-5.1); SODIUM 136 MMOL/L (136-145)
[2019-01-11 07:13] LABS: PHOSPHORUS 3.1 MG/DL (2.5-4.9)
--- NOTE | 2019-01-11 07:36 | NUR ---
HAND-OFF: Report given to Lily kumar RN.
--- NOTE | 2019-01-11 07:40 | NUR ---
NURSE NOTES: Received the patient from PATRICK Theodore. Patient is awake, alert and orientedx4. On 2L O2 via NC, O2 sat 98%. No acute distress noted. ST 100s noted on cardiac sonographer. Patient denies SOB or pain at this time. Denies nausea. Right IJ TLC and left upper arm PICC intact, dressing intact, clean and dry, running TPN at 74ml/hr, D5 1/2NS with 40meq KCl at 50ml/hr. Patient kept NPO. Patient noted with right ileostomy, stoma bright red, greenish drainage noted. M[place]monen dressing intact, clean and dry. left gastrostomy connected to drainage bag, draining by gravity, brown/green drainage noted. 10ml serosanguineous HAROLDO drainage noted. Abdominal binder on, hole over the ileostomy stoma. Pickett cath intact, draining yellow urine by gravity. Patient refusing SCDs on bilateral lower extremities. Risks and benefits explained. patient verbalized understanding. Encouraged the patient to use incentive spirometer. patient teaching provided. Patient on P200 mattress, bed with overhead trapeze. Bed in lowest position, locked, side rails upx2. Bed alarm on. HOB kept elevated. Call light within reach. Will continue to monitor.
--- NOTE | 2019-01-11 08:20 | NUR ---
NURSE NOTES: Patient seen by Dr. Cardona. MD made aware of episode of nausea/vomiting and increased gastrostomy drainage after vomiting episode per shift stacker nurse. No new orders at this time.
[2019-01-11] MEDS: Pantoprazole Inj IVP SCH (08:47)
[2019-01-11] MEDS: Metoprolol Succinate XL 25mg tab ORAL SCH (08:47)
[2019-01-11] MEDS: Lisinopril 20mg tab ORAL SCH (08:48)
[2019-01-11] MEDS: Mycophenolate 250mg cap ORAL SCH ×2 (08:48→21:06)
--- NOTE | 2019-01-11 09:00 | NUR ---
NURSE NOTES: All PO meds crushed and given via Gtube, flushed with 20ml NS and clamped.
--- NOTE | 2019-01-11 09:35 | NUR ---
NURSE NOTES: Patient seen by Dr. Sotomayor. updated on patient's condition. Midabdomen dressing changed by Dr. Sotomayor. G-tube reconnected to drainage bag.
--- NOTE | 2019-01-11 09:51 | General Progress Note ---
Progress Note Progress Note Tmax 100 VSS Awake and alert. Still with pain and nausea, had emesis 100cc x 1 last night Abdomen soft, incisions clean, some serous drainage lower pole HAROLDO drain only serous fluid 46cc/24 hours Urine 3085 Gastrostomy 1300 Ileostomy 80 enteric WBC down 11,700 Hgb 10.1 Mg 2.0 Imp: ileus Plan: continue npo except meds via gastrostomy; gastrostomy to continuous drainage PT mobility protocol with abdominal binder in place Lars Sotomayor MD Jan 11, 2019 09:51
--- NOTE | 2019-01-11 10:48 | NUR ---
NURSE NOTES: patient c/o nausea. prn zofran given.
--- NOTE | 2019-01-11 12:00 | NUR ---
NURSE NOTES: patient c/o 8/10 pain in lower abd. PRN pain med given. Denies nausea at this time. VSS.
[2019-01-11] MEDS: D5 1/2NS w/KCl 40meq 1000ml 1,000 ML IV SCH (12:08)
--- NOTE | 2019-01-11 14:05 | NUR ---
NURSE NOTES: patient working with physical therapists. Patient denies any pain or nausea at this time. VSS. ST 100s noted on client support administrator. Addendum: 01/11/19 at 1839 by JSEUS ARRIAZA RN patient on abdominal binder.
--- NOTE | 2019-01-11 14:30 | NUR ---
NURSE NOTES: Patient was out of the bed with PT. Patient tolerated PT well. Placed SCDs on bilateral lower extremities. VSS. Patient on room air, O2 sat 98%. No distress noted. Addendum: 01/11/19 at 1454 by JESUS ARRIAZA RN patient's , daughter and son at bedside.
--- NOTE | 2019-01-11 15:43 | NUR ---
PT Note PT re-eval completed. Patient was seen in ICU; she is alert, cooperative. Patient needs PT to increase her muscle strength, endurance and activity tolerance to improve her functional mobility and gait to enable her to return to PLOF. Addendum: 01/11/19 at 1544 by DEBRA GODOY PT Amended: Links added.
--- NOTE | 2019-01-11 15:59 | General Progress Note ---
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 due to narcotics - ? due to post op ileus - GT to gravity. need to ensure PROGRAF and CELLCEPT absorption - d/w RN - clamp GT for 1 hr after meds - await prograf level - Leukocytosis - abnormal lytes - hypothyroid Recommendations - Replace lytes PRN - d/c narcotics - PRN tylenol and ultram OK - Abx per ID - Continue TPN - F/u Prograf level - follow labs - CT abd/Pelvis this week - RD input re TPN rate and protein - advised RN to put in order - check KUB - order given to RN - check pre-albumin - check phos - check TFT Subjective Allergies: Coded Allergies: CODEINE (Verified Allergy, Severe, 12/17/18) Face contractions HYDROMORPHONE (Verified Allergy, Severe, Itching, 12/17/18) Itching whole body METOCLOPRAMIDE (Verified Allergy, Severe, 12/17/18) Face contractions MORPHINE (Verified Allergy, Severe, Shortness of Breath, 12/17/18) SULFA (SULFONAMIDE ANTIBIOTICS) (Verified Allergy, Severe, 12/17/18) Face contractions Subjective Awake, in ICU weak, d/w RN vomiting reported GT is to gravity -- brown drainage Objective Last 24 Hour Vital Signs Date Time Temp Pulse Resp B/P (MAP) Pulse Ox O2 Delivery O2 Flow Rate FiO2 01/11/19 15:00 96 21 130/71 (90) 97 01/11/19 14:00 99 22 128/71 (90) 98 01/11/19 13:00 102 22 145/67 (93) 97 01/11/19 12:00 108 01/11/19 12:00 99.1 104 18 141/76 (97) 99 01/11/19 12:00 2.0 01/11/19 12:00 Room Air 01/11/19 11:00 104 20 146/86 (106) 98 01/11/19 10:00 105 18 143/73 (96) 97 01/11/19 09:00 109 18 145/74 (97) 97 01/11/19 08:51 100 Nasal Cannula 2.0 28 01/11/19 08:48 145/75 01/11/19 08:48 107 145/75 01/11/19 08:47 107 145/75 01/11/19 08:00 107 01/11/19 08:00 2.0 01/11/19 08:00 Nasal Cannula 2.0 01/11/19 08:00 98.3 105 18 140/71 (94) 99 01/11/19 07:00 101 17 154/78 (103) 97 01/11/19 06:29 98.6 01/11/19 06:00 118 22 163/65 (97) 96 01/11/19 05:00 104 19 152/74 (100) 99 01/11/19 04:00 2.0 01/11/19 04:00 96 01/11/19 04:00 98.6 98 16 151/73 (99) 97 01/11/19 04:00 Nasal Cannula 2.0 01/11/19 03:00 100 21 131/77 (95) 99 01/11/19 02:00 95 18 130/53 (78) 97 01/11/19 01:00 101 16 130/69 (89) 97 01/11/19 00:36 98.7 01/11/19 00:00 102 01/11/19 00:00 98.3 101 18 144/67 (92) 99 01/11/19 00:00 Nasal Cannula 2.0 01/11/19 00:00 2.0 01/10/19 23:00 99 22 144/56 (85) 100 01/10/19 22:30 99 26 152/73 (99) 100 01/10/19 22:00 99 17 141/57 (85) 100 01/10/19 21:30 95 16 148/64 (92) 100 01/10/19 21:00 92 15 136/60 (85) 100 01/10/19 20:30 92 17 128/63 (84) 100 01/10/19 20:00 2.0 01/10/19 20:00 Nasal Cannula 2.0 01/10/19 20:00 91 9/21/19 20:00 93 20 128/58 (81) 96 01/10/19 19:30 98.7 90 16 131/61 (84) 100 01/10/19 19:00 99 Nasal Cannula 2.0 28 01/10/19 19:00 91 16 131/60 (83) 100 01/10/19 18:00 86 16 152/51 (84) 100 01/10/19 17:56 86 136/64 01/10/19 17:00 84 13 119/52 (74) 100 01/10/19 16:00 90 01/10/19 16:00 99.6 89 15 130/58 (82) 100 01/10/19 16:00 2.0 01/10/19 16:00 Nasal Cannula 2.0 Intake and Output 01/10/19 01/11/19 19:00 07:00 Intake Total 2802.0 ml 1844 ml Output Total 2192 ml 2269 ml Balance 610.0 ml -425 ml Free Water 120 ml IV Total 2072.0 ml 1784 ml Other 610 ml 60 ml Output Urine Total 1435 ml 1500 ml Gastric Drainage Total 700 ml 600 ml Emesis 100 ml Drainage Total 27 ml 19 ml Other 30 ml 50 ml Laboratory Tests 01/11/19 04:30: White Blood Count 11.7H, Red Blood Count 3.33L, Hemoglobin 10.1L, Hematocrit 30.9L, Mean Corpuscular Volume 93, Mean Corpuscular Hemoglobin 30.2, Mean Corpuscular Hemoglobin Concent 32.5, Red Cell Distribution Width 13.4, Platelet Count 459H, Mean Platelet Volume 5.8L, Neutrophils (%) (Auto) 78.9H, Lymphocytes (%) (Auto) 6.6L, Monocytes (%) (Auto) 5.4, Eosinophils (%) (Auto) 8.3H, Basophils (%) (Auto) 0.8, Sodium Level 136, Potassium Level 4.3, Chloride Level 103, Carbon Dioxide Level 22, Anion Gap 11, Blood Urea Nitrogen 30H, Creatinine 1.2, Estimat Glomerular Filtration Rate 44.8, Glucose Level 197H, Calcium Level 9.7, Phosphorus Level 3.1, Magnesium Level 2.0, Total Bilirubin 0.2, Aspartate Amino Transf (AST/SGOT) 22, Alanine Aminotransferase (ALT/SGPT) 28, Alkaline Phosphatase 341H, Total Protein 6.5, Albumin 1.6L, Globulin 4.9, Albumin/Globulin Ratio 0.3L, Prealbumin [Pending], Thyroid Stimulating Hormone ( TSH) 3.451, Free Thyroxine 0.97, Triiodothyonine (T3) [Pending] Height (Feet): 5 Height (Inches): 3.00 Weight (Pounds): 150 Objective Thin WW NCAT supple CTA RR abd flat, (R) sided ostomy with dark stool, (+) LUQ GT and L sided drain, central wound no edema Simba Cardona MD Jan 11, 2019 15:59
[2019-01-11] MEDS ORDERED: traMADol 50mg tab ORAL PRN (16:00)
--- NOTE | 2019-01-11 16:10 | NUR ---
NURSE NOTES: Received a call from Dr. Cardona. Per , d/c fentanyl patch and subq due to vomiting, okay for pt to have tramadol and toradol prn, clamp G-tube for 1 hour after med administration via Gtube. JACOB also ordered. Explained to the patient. patient requesting to confirm orders with Dr. Sotomayor. Left a message to Dr. Sotomayor. Addendum: 01/11/19 at 1714 by JESUS ARRIAZA RN fentanyl patch was not removed.
--- NOTE | 2019-01-11 16:35 | NUR ---
NURSE NOTES: Spoke with Dr. Sotomayor regarding Dr. Cardona's orders. Per PMD, dc tramadol and resume fentanyl patch and subq, d/c KUB, okay to clamp G-tube for 1 hour only after administrating Cellcept and Prograf.
--- NOTE | 2019-01-11 16:58 | Critical Care Progress Note ---
Assessment/Plan Status Narrative UC s/p revision of Kock pouch status-post multiple operations in 1 week with repairs of intestinal perforations x 2 HTN Hypothyroidism Low grade fever- Improved- most likel;y due to atelectasis due to hypoventilation Post Op pain - stable. Hypokalemia Assessment/Plan ICU monitor IV Fluids TPN KCl IV Metoprolol 50 mg/day per GT PO meds given by GT. Clonidine 0.1 mg Q6 h PRN- may increase as needed Hydralazine IV PRN Monitor I/Os Monitor labs. I/S Q 1h Pain management- Discussed with ICU Staff Increase activity as per Dr. Sotomayor. DC Lidocain patch. Critical Care - Subjective Interval Events: Doing better overall. Pain controlled. Had one episode of vomiting. Was out of bed with PT. ROS Limited/Unobtainable: No Condition: stable IV Access: central EKG Rhythm: Sinus Tachycardia IV Fluids: D5 1/2 NS @50 cc/h Drips: TPN @ 74 cc/h I&O: Intake and Output 01/10/19 01/11/19 19:00 07:00 Intake Total 2802.0 ml 1844 ml Output Total 2192 ml 2269 ml Balance 610.0 ml -425 ml Free Water 120 ml IV Total 2072.0 ml 1784 ml Other 610 ml 60 ml Output Urine Total 1435 ml 1500 ml Gastric Drainage Total 700 ml 600 ml Emesis 100 ml Drainage Total 27 ml 19 ml Other 30 ml 50 ml Critical Care - Objective ET-Tube: 7.0 ET Position: 20 Last 24 Hour Vital Signs Date Time Temp Pulse Resp B/P (MAP) Pulse Ox O2 Delivery O2 Flow Rate FiO2 01/11/19 16:00 105 01/11/19 16:00 Room Air 01/11/19 16:00 98.4 102 20 147/60 (89) 97 01/11/19 16:00 2.0 01/11/19 15:00 96 21 130/71 (90) 97 01/11/19 14:00 99 22 128/71 (90) 98 01/11/19 13:00 102 22 145/67 (93) 97 01/11/19 12:00 108 01/11/19 12:00 99.1 104 18 141/76 (97) 99 01/11/19 12:00 2.0 01/11/19 12:00 Room Air 01/11/19 11:00 104 20 146/86 (106) 98 01/11/19 10:00 105 18 143/73 (96) 97 01/11/19 09:00 109 18 145/74 (97) 97 01/11/19 08:51 100 Nasal Cannula 2.0 28 01/11/19 08:48 145/75 01/11/19 08:48 107 145/75 01/11/19 08:47 107 145/75 01/11/19 08:00 107 01/11/19 08:00 2.0 01/11/19 08:00 Nasal Cannula 2.0 01/11/19 08:00 98.3 105 18 140/71 (94) 99 01/11/19 07:00 101 17 154/78 (103) 97 01/11/19 06:29 98.6 01/11/19 06:00 118 22 163/65 (97) 96 01/11/19 05:00 104 19 152/74 (100) 99 01/11/19 04:00 2.0 01/11/19 04:00 96 01/11/19 04:00 98.6 98 16 151/73 (99) 97 01/11/19 04:00 Nasal Cannula 2.0 01/11/19 03:00 100 21 131/77 (95) 99 01/11/19 02:00 95 18 130/53 (78) 97 01/11/19 01:00 101 16 130/69 (89) 97 01/11/19 00:36 98.7 01/11/19 00:00 102 01/11/19 00:00 98.3 101 18 144/67 (92) 99 01/11/19 00:00 Nasal Cannula 2.0 01/11/19 00:00 2.0 01/10/19 23:00 99 22 144/56 (85) 100 01/10/19 22:30 99 26 152/73 (99) 100 01/10/19 22:00 99 17 141/57 (85) 100 01/10/19 21:30 95 16 148/64 (92) 100 01/10/19 21:00 92 15 136/60 (85) 100 01/10/19 20:30 92 17 128/63 (84) 100 01/10/19 20:00 2.0 01/10/19 20:00 Nasal Cannula 2.0 01/10/19 20:00 91 01/10/19 20:00 93 20 128/58 (81) 96 01/10/19 19:30 98.7 90 16 131/61 (84) 100 01/10/19 19:00 99 Nasal Cannula 2.0 28 01/10/19 19:00 91 16 131/60 (83) 100 01/10/19 18:00 86 16 152/51 (84) 100 01/10/19 17:56 86 136/64 01/10/19 17:00 84 13 119/52 (74) 100 Status: awake, alert Condition: stable Neck: no JVD Lungs: clear Heart: regular rhythm, no gallop/murmur, tachycardia Abdomen: soft, other - minimal BS Extremities: no C/C/E Accucheck: 183 Micha Ziegler MD Jan 11, 2019 16:58
--- NOTE | 2019-01-11 17:00 | NUR ---
NURSE NOTES: Patient seen by Dr. Ziegler. updated on pt's condition. Okay to D/C Lidoderm patch.
--- NOTE | 2019-01-11 17:00 | Infectious Diseases Prog Note ---
Assessment/Plan Assessment/Plan ASSESSMENT AND PLAN: 1. leukocytosis, fevers, ? sepsis, possible intra-abdominal infection/early sbo , s/p exploratory laparotomy and small bowel segmental resection, fungemia risk with hx of tpn and abx, + picc line s/p surgery for post-operative leak - 01/07/19, bfc with jeff albicans - antibiotics - vancomycin, meropenem and micafungin - cultures noted, bfc - jeff, blood cultures negative - monitor labs, leukocytosis better, lgt noted - icu care - operative notes reviewed - d/w RN and patient 2. 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 3. Liver transplantation. 4. Sclerosing cholangitis. 5. Ulcerative colitis. 6. The patient is anemic. 7. History of cholecystectomy, appendectomy, hysterectomy, and proctocolectomy. 8. History of multiple abdominal operations. 9. Allergies to codeine, hydromorphone, metoclopramide, morphine, and sulfa. 10. Family doctor is Noncontributory. 11. Social history is negative. 12. MAR was noted. 13. Case discussed with RN. 14. Case discussed with the patient. 15. Continue treatment per Dr. Sotomayor and consultants. Subjective Constitutional: Reports: fatigue, other - alert, lgt yesterday but resolved ; Denies: fever HEENT: Denies: congestion Respiratory: Denies: shortness of breath Cardiovascular: Denies: chest pain Gastrointestinal/Abdominal: Reports: nausea, other - + hoang drain ; Denies: vomiting, diarrhea Genitourinary: Reports: other - + morales Neurologic: Denies: headache Psychiatric: Denies: depression Hematologic: Denies: bleeding Musculoskeletal: Denies: pain Allergies: Coded Allergies: CODEINE (Verified Allergy, Severe, 12/17/18) Face contractions HYDROMORPHONE (Verified Allergy, Severe, Itching, 12/17/18) Itching whole body METOCLOPRAMIDE (Verified Allergy, Severe, 12/17/18) Face contractions MORPHINE (Verified Allergy, Severe, Shortness of Breath, 12/17/18) SULFA (SULFONAMIDE ANTIBIOTICS) (Verified Allergy, Severe, 12/17/18) Face contractions Objective Vital Signs Last 24 Hour Vital Signs Date Time Temp Pulse Resp B/P (MAP) Pulse Ox O2 Delivery O2 Flow Rate FiO2 9/22/19 16:00 105 01/11/19 16:00 Room Air 01/11/19 16:00 98.4 102 20 147/60 (89) 97 01/11/19 16:00 2.0 01/11/19 15:00 96 21 130/71 (90) 97 01/11/19 14:00 99 22 128/71 (90) 98 01/11/19 13:00 102 22 145/67 (93) 97 01/11/19 12:00 108 01/11/19 12:00 99.1 104 18 141/76 (97) 99 01/11/19 12:00 2.0 01/11/19 12:00 Room Air 01/11/19 11:00 104 20 146/86 (106) 98 01/11/19 10:00 105 18 143/73 (96) 97 01/11/19 09:00 109 18 145/74 (97) 97 01/11/19 08:51 100 Nasal Cannula 2.0 28 01/11/19 08:48 145/75 01/11/19 08:48 107 145/75 01/11/19 08:47 107 145/75 01/11/19 08:00 107 01/11/19 08:00 2.0 01/11/19 08:00 Nasal Cannula 2.0 01/11/19 08:00 98.3 105 18 140/71 (94) 99 01/11/19 07:00 101 17 154/78 (103) 97 01/11/19 06:29 98.6 01/11/19 06:00 118 22 163/65 (97) 96 01/11/19 05:00 104 19 152/74 (100) 99 01/11/19 04:00 2.0 01/11/19 04:00 96 01/11/19 04:00 98.6 98 16 151/73 (99) 97 01/11/19 04:00 Nasal Cannula 2.0 01/11/19 03:00 100 21 131/77 (95) 99 01/11/19 02:00 95 18 130/53 (78) 97 01/11/19 01:00 101 16 130/69 (89) 97 01/11/19 00:36 98.7 01/11/19 00:00 102 01/11/19 00:00 98.3 101 18 144/67 (92) 99 01/11/19 00:00 Nasal Cannula 2.0 01/11/19 00:00 2.0 01/10/19 23:00 99 22 144/56 (85) 100 01/10/19 22:30 99 26 152/73 (99) 100 01/10/19 22:00 99 17 141/57 (85) 100 01/10/19 21:30 95 16 148/64 (92) 100 01/10/19 21:00 92 15 136/60 (85) 100 01/10/19 20:30 92 17 128/63 (84) 100 01/10/19 20:00 2.0 01/10/19 20:00 Nasal Cannula 2.0 01/10/19 20:00 91 01/10/19 20:00 93 20 128/58 (81) 96 01/10/19 19:30 98.7 90 16 131/61 (84) 100 01/10/19 19:00 99 Nasal Cannula 2.0 28 01/10/19 19:00 91 16 131/60 (83) 100 01/10/19 18:00 86 16 152/51 (84) 100 01/10/19 17:56 86 136/64 01/10/19 17:00 84 13 119/52 (74) 100 Height (Feet): 5 Height (Inches): 3.00 Weight (Pounds): 150 General Appearance: no acute distress HEENT: normocephalic, atraumatic, anicteric, mucous membranes moist Respiratory/Chest: lungs clear, normal breath sounds, no respiratory distress Cardiovascular: normal rate, regular rhythm, no gallop/murmur, no JVD Abdomen: normal bowel sounds, soft, non tender, no organomegaly, non distended Genitourinary: other - + morales - urine slt cloudy Extremities: no cyanosis Skin: no rash 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 Good bowel and bag opacification with no evidence of bowel obstruction. Unusual, markedly distended unopacified loop of bowel in the pelvis. Although unopacified, this does not appear to be an abscess as there is a wall and other characteristics more in keeping with bowel. Would consider a large diverticulum or possibly remnant of the previous Kock pouch or part of the small bowel leading to the old pouch as those segments are sometimes quite distended. Status post liver transplant. Status post cholecystectomy. Mild basal atelectasis. Chest x-ray - no pna, report noted CT abdomen/pelvis - 12/30/18 - Impression: Postsurgical changes, as described Unusual tubular structure filled mostly with gas but also some fluid communicating with the small bowel at the site of a right lower quadrant enteroenterostomy. Uncertain as to whether this represents an unusual large diverticulum, a true extraluminal gas collection, or a portion of an old continent ileostomy pouch. This is also previously described Dilated proximal small bowel proximal to the enteroenterostomy with slow forward propulsion of contents. Partial small bowel obstruction not completely excludable although unlikely given evidence of forward propulsion of contrast and filling of the ileostomy on prior 12/26/2018 exam; findings most likely functional in nature. Correlate with clinical findings Small anterior pelvic and deep pelvic fluid pockets, most likely represent retained postoperative fluid collections. Abscess as etiology of any of these not completely excludable; correlation with clinical findings recommended Postsurgical changes of the liver status post transplantation Punctate nonobstructing bilateral intrarenal calculi Bilateral basilar pulmonary parenchymal atelectasis and/or scarring Chest x-ray - 01/07/19 - Images previously reviewed in person with Dr. Sotomayor Interval placement of a right transjugular central line, catheter tip in the region of the high right atrium. Left arm PICC line remains in place with the catheter tip at the cavoatrial junction. No evidence of pneumothorax. No definite focal airspace consolidation or pleural effusion. Surgical clips noted projecting over the upper abdomen. Microbiology Date/Time Source Procedure Growth Status 01/07/19 04:15 Blood Blood Culture - Preliminary NO GROWTH AFTER 4 DAYS Resulted 01/08/19 16:00 Stool Clostridium difficile Toxin Assay - Final Complete 01/06/19 12:55 Indwelling Cath Urine Culture - Final NO GROWTH AFTER 48 HOURS Complete 01/06/19 22:30 Abdominal Fluid Gram Stain - Final Complete 01/06/19 22:30 Body Fluid Culture - Final Jeff Albicans Complete Laboratory Tests Test 01/11/19 04:30 White Blood Count 11.7 K/UL (4.8-10.8) H Red Blood Count 3.33 M/UL (4.20-5.40) L Hemoglobin 10.1 G/DL (12.0-16.0) L Hematocrit 30.9 % (37.0-47.0) L Mean Corpuscular Volume 93 FL (80-99) Mean Corpuscular Hemoglobin 30.2 PG (27.0-31.0) Mean Corpuscular Hemoglobin Concent 32.5 G/DL (32.0-36.0) Red Cell Distribution Width 13.4 % (11.6-14.8) Platelet Count 459 K/UL (150-450) H Mean Platelet Volume 5.8 FL (6.5-10.1) L Neutrophils (%) (Auto) 78.9 % (45.0-75.0) H Lymphocytes (%) (Auto) 6.6 % (20.0-45.0) L Monocytes (%) (Auto) 5.4 % (1.0-10.0) Eosinophils (%) (Auto) 8.3 % (0.0-3.0) H Basophils (%) (Auto) 0.8 % (0.0-2.0) Sodium Level 136 MMOL/L (136-145) Potassium Level 4.3 MMOL/L (3.5-5.1) Chloride Level 103 MMOL/L (98-107) Carbon Dioxide Level 22 MMOL/L (21-32) Anion Gap 11 mmol/L (5-15) Blood Urea Nitrogen 30 mg/dL (7-18) H Creatinine 1.2 MG/DL (0.55-1.30) Estimat Glomerular Filtration Rate 44.8 mL/min (>60) Glucose Level 197 MG/DL (74-106) H Calcium Level 9.7 MG/DL (8.5-10.1) Phosphorus Level 3.1 MG/DL (2.5-4.9) Magnesium Level 2.0 MG/DL (1.8-2.4) Total Bilirubin 0.2 MG/DL (0.2-1.0) Aspartate Amino Transf (AST/SGOT) 22 U/L (15-37) Alanine Aminotransferase (ALT/SGPT) 28 U/L (12-78) Alkaline Phosphatase 341 U/L (46-116) H Total Protein 6.5 G/DL (6.4-8.2) Albumin 1.6 G/DL (3.4-5.0) L Globulin 4.9 g/dL Albumin/Globulin Ratio 0.3 (1.0-2.7) L Prealbumin Pending Thyroid Stimulating Hormone (TSH) 3.451 uiU/mL (0.358-3.740) Free Thyroxine 0.97 NG/DL (0.76-1.46) Triiodothyonine (T3) Pending Current Medications Medications (Trade) Dose Ordered Sig/Kajal Route PRN Reason Start Time Stop Time Status Last Admin Dose Admin Acetaminophen (Tylenol) 650 mg Q4H PRN ORAL Mild Pain/Temp > 100.2 01/04/19 21:00 01/25/19 20:59 Acetaminophen (Tylenol) 650 mg Q6H PRN ORAL headache 01/04/19 20:45 01/16/19 14:44 01/10/19 14:38 Al Hydroxide/Mg Hydroxide (Mylanta) 30 ml Q6H PRN ORAL dyspepsia 01/04/19 21:30 01/27/19 09:29 01/11/19 05:06 Amlodipine Besylate (Norvasc) 5 mg BID ORAL 01/05/19 09:00 02/02/19 08:59 01/11/19 08:48 Chlorhexidine Gluconate (Yulia-Hex 2%) 1 applic DAILY@2000 TOPIC 01/04/19 20:00 01/16/19 19:59 01/10/19 19:58 Clonidine HCl (Catapres Tab) 0.1 mg Q6H PRN SL SBP>150 mmHg 01/04/19 22:00 01/21/19 21:59 01/05/19 11:56 Dextrose 1,000 ml @ 0 mls/hr Q24H PRN IV PN interrupted or unavailable 01/04/19 20:00 01/19/19 19:59 Dextrose (Dextrose 50%) 25 ml Q30M PRN IV Hypoglycemia 01/04/19 19:15 01/21/19 12:44 Dextrose (Dextrose 50%) 50 ml Q30M PRN IV Hypoglycemia 01/04/19 19:15 01/21/19 12:44 Dextrose/ Electrolytes 1,000 ml @ 50 mls/hr Q20H IV 01/04/19 20:00 02/02/19 19:59 01/11/19 12:08 Diphenhydramine HCl (Benadryl) 50 mg Q4H PRN ORAL Itching 01/04/19 20:00 01/26/19 19:59 Fat Emulsion Intravenous 216 ml/Amino Acids/ Electrolytes/ Dextrose 1,776 ml @ 74 mls/hr Q24H IV 01/04/19 20:00 01/29/19 19:59 01/10/19 19:59 Hydralazine HCl (Apresoline) 10 mg Q4H PRN IV For High Blood Pressure 01/05/19 12:19 02/04/19 12:18 01/07/19 18:36 Insulin Aspart (NovoLOG) Q6HR SUBQ 01/05/19 00:00 01/21/19 17:59 01/11/19 12:00 Ketorolac Tromethamine (Toradol 30mg) 15 mg Q6H PRN IV Breakthrough Pain 01/09/19 16:00 01/14/19 15:59 01/11/19 11:57 Levothyroxine Sodium (Synthroid) 100 mcg DAILY IV 01/05/19 09:00 02/04/19 08:59 01/11/19 08:48 Lidocaine (Lidoderm 5% PATCH) 1 patch DAILY TDERMAL 01/04/19 19:00 02/03/19 18:29 01/11/19 08:49 Lidocaine (Lidoderm 5% PATCH) 1 patch DAILY TDERMAL 01/04/19 19:00 02/03/19 18:29 01/11/19 08:49 Lisinopril (Prinivil) 40 mg DAILY ORAL 01/05/19 09:00 01/30/19 08:59 01/11/19 08:48 Meropenem 1 gm/ Sodium Chloride 100 ml @ 200 mls/hr Q8HR IVPB 01/07/19 18:00 01/12/19 17:59 01/11/19 13:57 Metoprolol Succinate (Toprol XL) 50 mg DAILY ORAL 01/10/19 09:00 01/23/19 08:59 01/11/19 08:47 Micafungin Sodium 100 mg/Sodium Chloride 110 ml @ 110 mls/hr Q24H IVPB 01/08/19 20:00 01/14/19 19:59 01/10/19 19:59 Mycophenolate Mofetil (Cellcept) 750 mg Q12HR ORAL 01/04/19 21:00 01/24/19 08:59 01/11/19 08:48 Naloxone HCl (Narcan) 0.1 mg PRN IV Sedation scale 3 or 4 01/04/19 19:00 02/03/19 13:44 Ondansetron HCl (Zofran) 4 mg Q6H PRN IVP Nausea & Vomiting 01/04/19 19:15 01/20/19 07:14 01/11/19 10:47 Pantoprazole (Protonix) 40 mg DAILY IVP 01/05/19 09:00 01/25/19 08:59 01/11/19 08:47 Prochlorperazine (Compazine) 10 mg Q6H PRN IVP Nausea & Vomiting 01/04/19 20:00 01/19/19 19:59 01/11/19 05:59 Tacrolimus (Prograf) 1 mg DAILY ORAL 01/05/19 09:00 02/04/19 08:59 01/11/19 08:47 Tacrolimus (Prograf) 2 mg BEDTIME ORAL 01/04/19 21:00 01/16/19 20:59 01/10/19 21:00 Tramadol HCl (Ultram) 50 mg Q6H PRN ORAL pain 01/11/19 16:00 01/18/19 15:59 Trazodone HCl (Desyrel) 25 mg HSPRN PRN ORAL INSOMNIA 01/04/19 20:00 02/03/19 19:59 01/09/19 21:43 Vancomycin HCl (Vanco rx to dose) 1 ea DAILY PRN MISC Per rx protocol 01/09/19 18:45 02/08/19 18:44 Vancomycin HCl 500 mg/Dextrose 110 ml @ 110 mls/hr Q12HR@0300,1500 IVPB 01/10/19 03:00 01/15/19 02:59 01/11/19 14:02 Philly Shelby MD Jan 11, 2019 17:00
--- NOTE | 2019-01-11 17:10 | NUR ---
NURSE NOTES: Lidoderm patch removed from right and left back.
[2019-01-11] MEDS ORDERED: fentaNYL 100 mcg/2 mL IV PRN ×2 (17:12→17:15)
--- NOTE | 2019-01-11 18:10 | NUR ---
NURSE NOTES: Patient resting in bed comfortably. Denies any pain, nausea. VSS. O2 sat 98% on room air. Mid abdomen dressing intact, clean and dry. On abdominal binder. On SCDs on bilateral lower extremities. Gtube was clamped for 30min after med administration, reconnected to drainage bag.
--- NOTE | 2019-01-11 19:03 | NUR ---
NURSE NOTES: PRN Toradol given for pain in abd. VSS.
--- NOTE | 2019-01-11 19:27 | NUR ---
HAND-OFF: Report given to PATRICK Nolasco.
--- NOTE | 2019-01-11 19:30 | NUR ---
NURSE NOTES: Received the patient from PATRIKC Mcgovern. Patient is awake, alert and orientedx4. On RA with O2 sat 98%. No acute distress noted. SR with HR 98 noted on threat monitoring analyst. Patient denies SOB or pain at this time. Denies nausea. Right IJ TLC and left upper arm PICC intact, dressing intact, clean and dry, running TPN at 74ml/hr, D5 1/2NS with 40meq KCl at 50ml/hr. Patient kept NPO. Patient noted with right ileostomy, stoma bright red, greenish drainage noted. Mid abdomen dressing intact, clean and dry. Left gastrostomy connected to drainage bag, draining by gravity, brown/green drainage noted. Serosanguineous HAROLDO drainage noted. Abdominal binder on, hole over the ileostomy stoma. Pickett cath intact, draining yellow urine by gravity. Patient refusing SCDs on bilateral lower extremities. Risks and benefits explained. patient verbalized understanding. Encouraged the patient to use incentive spirometer. patient teaching provided. Patient on P200 mattress, bed with overhead trapeze. Bed in lowest position, locked, side rails upx2. Bed alarm on. HOB kept elevated. Call light within reach. Will continue to monitor.
[2019-01-11] MEDS: Dyna-Hex 2% Top Sol 2oz TOPIC SCH (20:07)
[2019-01-11] MEDS: Fat Emulsion Iv 20% 216 ML in Tpn 1,560 ML IV SCH (20:07)
[2019-01-11] MEDS: Micafungin 100 MG in NS 110 ML IVPB SCH (20:07)
--- NOTE | 2019-01-11 22:00 | NUR ---
NURSE NOTES: Pt's resting in bed, comfortably, denies any pain at this time. VS stable. Call light within reach. Will continue to monitor.
[2019-01-11] MEDS: TraZODone HCl 25 mg tablet ORAL PRN (22:02)
[2019-01-12] VITALS (14 sets, daily range): BP systolic 111–161; BP diastolic 53–92
--- NOTE | 2019-01-12 | NUR ---
NURSE NOTES: Pt's resting in bed, comfortably, asleep with eyes closed. VS stable. Call light within reach. Will continue to monitor.
[2019-01-12] MEDS: NovoLOG Insulin Flexpen SUBQ SCH ×4 (00:34→18:19)
--- NOTE | 2019-01-12 02:00 | NUR ---
NURSE NOTES: Pt's resting in bed, in no acute distress. VS stable. Call light within reach. Will continue to monitor.
[2019-01-12] MEDS: Ketorolac 30mg Inj IV PRN ×3 (02:01→21:18)
[2019-01-12] MEDS: Vancomycin 500 MG in D5W 110 ML IVPB SCH (03:13)
--- NOTE | 2019-01-12 04:00 | NUR ---
NURSE NOTES: Pt's resting in bed, in no acute distress, asleep with eyes closed. VS stable. Call light within reach. Will continue to monitor.
[2019-01-12 04:48] LABS: EOSINOPHILS % (AUTO) 8.6 % (0.0-3.0); HEMATOCRIT 30.5 % (37.0-47.0); HEMOGLOBIN 9.9 G/DL (12.0-16.0); MEAN CORPUSCULAR VOLUME 92 FL (80-99); NEUTROPHILS % (AUTO) 75.4 % (45.0-75.0); PLATELET COUNT 462 K/UL (150-450); RED BLOOD COUNT 3.31 M/UL (4.20-5.40); RED CELL DISTRIBUTION WIDTH 12.9 % (11.6-14.8); WHITE BLOOD COUNT 8.9 K/UL (4.8-10.8)
[2019-01-12 05:11] LABS: ALANINE AMINOTRANSFERASE 26 U/L (12-78); ALBUMIN 1.7 G/DL (3.4-5.0); ALBUMIN/GLOBULIN RATIO 0.3 (1.0-2.7); ALKALINE PHOSPHATASE 342 U/L (46-116); ANION GAP 10 mmol/L (5-15); ASPARTATE AMINO TRANSFERASE 23 U/L (15-37); BILIRUBIN,TOTAL 0.2 MG/DL (0.2-1.0); BLOOD UREA NITROGEN 36 mg/dL (7-18); CALCIUM 10.1 MG/DL (8.5-10.1); CARBON DIOXIDE 25 MMOL/L (21-32); CHLORIDE 105 MMOL/L (98-107); CREATININE 1.4 MG/DL (0.55-1.30); SODIUM 140 MMOL/L (136-145)
[2019-01-12] MEDS ORDERED: fentaNYL Destruction MISC SCH ×2 (06:00→08:59)
--- NOTE | 2019-01-12 06:00 | NUR ---
NURSE NOTES: Pt's resting in bed, in no acute distress. VS stable. Will continue to monitor.
--- NOTE | 2019-01-12 07:30 | NUR ---
HAND-OFF: Report given to PATRICK Eid.
--- NOTE | 2019-01-12 07:35 | NUR ---
NURSE NOTES: Report received from Gaurav Zarco RN.Pt awake alert resting quietly in bed ,in no resp distress or discomfort,T-Tach on the monitor,Kept NPO ,Pickett cath draining yellow urine,Ileostomy with small amount of green liquid stools,Gastrostomy to gravity in placed,HAROLDO x1 with sanguinous drainage, abdomina l dressing with dry bloody drainage covered with abd binder,skin ,abd incision with reggie intact,skin warm and dry,IV site x2 LT arm PICC line with TPN at 74 ml/hr and IVF D5 1/2 NS with 20meq KCL at 50 ml/hr ,and RT IJ TLC ,both intact,SR up x2 ,call felton within reach ,HOB elevated ,bed lock in lowest position will continue with plans of care.
--- NOTE | 2019-01-12 08:35 | NUR ---
NURSE NOTES: Dr Sotomayor at bedside,dressing to abdominal surgery done,discussed with pt re plans ,will transfer pt back to 3E to room 307 today.
--- NOTE | 2019-01-12 08:46 | General Progress Note ---
Progress Note Progress Note AVSS Able to get out of bed with PT. Pain is decreased Abdomen soft, incisions clean, stoma pink Urine 3130 Gastrostomy 1900 Ileostomy 55 HAROLDO drain 30 serous WBC 8900 Hgb 9.9 BUn up 36 Cr up 1.4 Imp. Ileus with high volume gastrostomy outputs Plan; increase IV fluids transfer to [facility] Lars Sotomayor MD Jan 12, 2019 08:46
[2019-01-12] MEDS: Pantoprazole Inj IVP SCH (09:21)
[2019-01-12] MEDS: Mycophenolate 250mg cap ORAL SCH ×2 (09:22→21:27)
[2019-01-12] MEDS: Metoprolol Succinate XL 25mg tab ORAL SCH (09:23)
[2019-01-12] MEDS: Lisinopril 20mg tab ORAL SCH (09:23)
[2019-01-12] MEDS ORDERED: D5 1/2NS w/KCl 40meq 1000ml 1,000 ML IV SCH (09:30)
--- NOTE | 2019-01-12 10:26 | NUR ---
RD ASSESSMENT & RECOMMENDATIONS SEE CARE ACTIVITY FOR COMPLETE ASSESSMENT DAILY ESTIMATED NEEDS: Needs based on Surgery 61kg 25-30 kcals/kg 7058-5893 total kcals 1-2 g protein/kg 61-122 g total protein 25-30 mL/kg 9987-2851 total fluid mLs NUTRITION DIAGNOSIS: Altered GI fxn r/t h/o UC and malfunctioning kock pouch as evidenced by pt is s/p kock pouch takedown w/ creation of Yajaira ileo, now s/p ex lap, segmental small bowel resections and relocation of ileostomy, back to NPO, remains on TPN. CURRENT DIET:NPO, on TPN PO DIET RECOMMENDATIONS: Diet per MD PARENTERAL NUTRITION RECOMMENDATIONS: D/AA Rate: 65 IL Rate: 9 Total Rate: 74 Volume: 1776 % Dextrose: 18 % AA: 5.5 Energy (kcals/kg): 1730 Protein (g/kg protein): 86 Nonprotein KCALS: 1386 GIR (mg CHO/kg/min): 3.2 % Fat KCALS: 25 NPC: N Ratio: 101:1 TPN Comment: - Maintain current TPN: D18% + AA 5.5% @65ml/hr + 20% IL @9ml/hr - TPN at goal meets 100% est kcal/prot needs (28 kcal/kg and 1.4g prot/kg) ADDITIONAL RECOMMENDATIONS: 1) Obtain a standing weight as pt is able to ambulate in halls 2) Monitor lytes, BG , LFTs daily w/ TPN Replete lytes as needed 3) Consider DC D5 IVF for improved BG control 4) Diet per MD . .
--- NOTE | 2019-01-12 10:32 | NUR ---
CASE MANAGEMENT:REVIEW 01/12/ SI: POD #25...S/P RESECTION OF FAILED KOCJ POUCH POD#8...EXPL LAP W/SMALL BOWEL RESECTION AND RELOCATION OF ILEOSTOMY POD #5...S/P REPAIR OF STAPLE LINE DEHISCENCE POD #3...S/P REMOVE WOUND VAC. REPAIR BOWEL LEAK.ABDOMINAL WALL CLOSURE 98.2 103 21 150/79 97% ON RA H/H-9.9/30.5 BUN+36 CR+1.4 IS: TPN/IL @ 74/HR IV MICAFUNGIN Q24 IV MEROPENEM Q12 IV VANCOMYCIN Q12 IVF@100/HR CELLCEPT PO Q12 PROGRAF PO QHS LIDOCAINE PATCH NORVASC PO BID IV SYNTHROID QD LISINOPRIL PO QD TOPROL XL NG QD : ICU STATUS...DOWNGRADE TO MED/SURG PLAN:
--- NOTE | 2019-01-12 11:00 | NUR ---
NURSE NOTES: Dr Ziegler called and said to wait for him before pt is transferred.
--- NOTE | 2019-01-12 11:34 | NUR ---
*-*INSURANCE *-* UPDATED CLINICALS AND REVIEW HAVE BEEN FAXED TO: [facility]#[phone]
--- NOTE | 2019-01-12 11:55 | NUR ---
NURSE NOTES: Dr Ziegler at bedside seen pt,orders for NS bolus 250 m/,order done and carried out.
--- NOTE | 2019-01-12 11:58 | General Progress Note ---
Assessment/Plan Status: progressing Assessment/Plan: fu LFTs>>> stable now on TPN cellcept 750 BID prograft 3 gm per day monitor for Lyte protonix will fu labs ICU care fu surg recs abx per ID GT to suction with high out put post op ileus Subjective ROS Limited/Unobtainable: Yes Allergies: Coded Allergies: CODEINE (Verified Allergy, Severe, 12/17/18) Face contractions HYDROMORPHONE (Verified Allergy, Severe, Itching, 12/17/18) Itching whole body METOCLOPRAMIDE (Verified Allergy, Severe, 12/17/18) Face contractions MORPHINE (Verified Allergy, Severe, Shortness of Breath, 12/17/18) SULFA (SULFONAMIDE ANTIBIOTICS) (Verified Allergy, Severe, 12/17/18) Face contractions Subjective abd pain sleeping Objective Last 24 Hour Vital Signs Date Time Temp Pulse Resp B/P (MAP) Pulse Ox O2 Delivery O2 Flow Rate FiO2 01/12/19 11:00 102 21 127/81 (96) 97 01/12/19 10:00 101 21 151/92 (111) 98 01/12/19 09:24 103 150/79 01/12/19 09:23 103 150/79 01/12/19 09:23 150/79 01/12/19 09:00 101 21 145/69 (94) 98 01/12/19 08:08 2.0 01/12/19 08:00 98.2 103 21 150/79 (102) 97 01/12/19 08:00 108 01/12/19 08:00 Room Air 01/12/19 07:00 103 21 139/68 (91) 98 01/12/19 06:52 99 Nasal Cannula 2.0 28 01/12/19 04:00 2.0 01/12/19 04:00 94 13 111/53 (72) 99 01/12/19 04:00 Room Air 01/12/19 04:00 96 01/12/19 03:00 103 18 135/65 (88) 99 01/12/19 02:00 98.5 103 19 111/66 (81) 96 01/12/19 01:00 99 19 145/77 (99) 96 01/12/19 00:00 Room Air 01/12/19 00:00 98 01/12/19 00:00 99 19 134/62 (86) 96 01/12/19 00:00 2.0 01/11/19 23:00 98 18 131/57 (81) 100 01/11/19 22:00 94 15 142/64 (90) 97 01/11/19 21:00 98.5 95 18 144/64 (90) 98 01/11/19 20:00 Room Air 01/11/19 20:00 103 20 130/70 (90) 96 01/11/19 20:00 98 01/11/19 20:00 2.0 01/11/19 19:23 96 Nasal Cannula 2.0 28 01/11/19 19:00 104 22 137/70 (92) 97 01/11/19 18:00 99 19 121/95 (104) 98 01/11/19 17:24 104 147/65 01/11/19 17:00 108 22 147/65 (92) 97 01/11/19 16:00 105 01/11/19 16:00 Room Air 01/11/19 16:00 98.4 102 20 147/60 (89) 97 01/11/19 16:00 2.0 01/11/19 15:00 96 21 130/71 (90) 97 01/11/19 14:00 99 22 128/71 (90) 98 01/11/19 13:00 102 22 145/67 (93) 97 01/11/19 12:00 108 01/11/19 12:00 99.1 104 18 141/76 (97) 99 01/11/19 12:00 2.0 01/11/19 12:00 Room Air Intake and Output 01/11/19 01/12/19 19:00 07:00 Intake Total 1727.13 ml 1988 ml Output Total 2470 ml 1235 ml Balance -742.87 ml 753 ml Free Water 20 ml IV Total 1647.13 ml 1908 ml Other 60 ml 80 ml Output Urine Total 1625 ml 1220 ml Stool Total 30 ml Gastric Drainage Total 800 ml Drainage Total 15 ml 15 ml Laboratory Tests 01/12/19 04:00: White Blood Count 8.9, Red Blood Count 3.31L, Hemoglobin 9.9L, Hematocrit 30.5L , Mean Corpuscular Volume 92, Mean Corpuscular Hemoglobin 29.9, Mean Corpuscular Hemoglobin Concent 32.4, Red Cell Distribution Width 12.9, Platelet Count 462H, Mean Platelet Volume 6.0L, Neutrophils (%) (Auto) 75.4H, Lymphocytes (%) (Auto) 9.0L, Monocytes (%) (Auto) 6.0, Eosinophils (%) (Auto) 8.6H, Basophils (%) (Auto) 1.0, Sodium Level 140, Potassium Level 4.0, Chloride Level 105, Carbon Dioxide Level 25, Anion Gap 10, Blood Urea Nitrogen 36H, Creatinine 1.4H, Estimat Glomerular Filtration Rate 37.5, Glucose Level 167H, Calcium Level 10.1, Total Bilirubin 0.2, Aspartate Amino Transf (AST/SGOT) 23, Alanine Aminotransferase (ALT/SGPT) 26, Alkaline Phosphatase 342H, Total Protein 6.6, Albumin 1.7L, Globulin 4.9, Albumin/Globulin Ratio 0.3L Height (Feet): 5 Height (Inches): 3.00 Weight (Pounds): 141 General Appearance: lethargic EENT: normal ENT inspection Neck: supple Cardiovascular: normal rate Respiratory/Chest: decreased breath sounds Abdomen: soft, hyperactive bowel sounds - in place, hypoactive bowel sounds, other - post surgical Extremities: non-tender Max Dozier MD Jan 12, 2019 11:58
--- NOTE | 2019-01-12 11:58 | Critical Care Progress Note ---
Assessment/Plan Status: stable Status Narrative UC s/p revision of Kock pouch S/p mutiple surgeries HTN Hypothyroidism Renal insuff. - due to dehydration vs. effect of Toradol Assessment/Plan ICU monitor IV Fluids-increased to 100 cc/h NS bolus 250 cc now TPN repeat labs Metoprolol 50 mg/day per GT PO meds given by GT. Clonidine 0.1 mg Q6 h PRN- may increase as needed Hydralazine IV PRN Monitor I/Os Monitor labs. I/S Q 1h Pain management- Discussed with ICU Staff Increase activity as per Dr. Sotomayor. Rx to floor Critical Care - Subjective Interval Events: Pain controlled Wants to go out of ICU ROS Limited/Unobtainable: No Condition: stable IV Access: central EKG Rhythm: Sinus Tachycardia IV Fluids: D5 1/2 NS increased to 100 c/h Drips: TPN 74 cc/h I&O: Intake and Output 01/11/19 01/12/19 18:59 06:59 Intake Total 1727.13 ml 1888 ml Output Total 2510 ml 1215 ml Balance -782.87 ml 673 ml Free Water 20 ml IV Total 1647.13 ml 1808 ml Other 60 ml 80 ml Output Urine Total 1665 ml 1200 ml Stool Total 30 ml Gastric Drainage Total 800 ml Drainage Total 15 ml 15 ml Critical Care - Objective CXR: Remains tachycardic Bun/ Creat increased High output from GT tolerating ice chips Was up with PT ET-Tube: 7.0 ET Position: 20 Last 24 Hour Vital Signs Date Time Temp Pulse Resp B/P (MAP) Pulse Ox O2 Delivery O2 Flow Rate FiO2 01/12/19 11:00 102 21 127/81 (96) 97 01/12/19 10:00 101 21 151/92 (111) 98 01/12/19 09:24 103 150/79 01/12/19 09:23 103 150/79 01/12/19 09:23 150/79 01/12/19 09:00 101 21 145/69 (94) 98 01/12/19 08:08 2.0 01/12/19 08:00 98.2 103 21 150/79 (102) 97 01/12/19 08:00 108 01/12/19 08:00 Room Air 01/12/19 07:00 103 21 139/68 (91) 98 01/12/19 06:52 99 Nasal Cannula 2.0 28 01/12/19 04:00 2.0 01/12/19 04:00 94 13 111/53 (72) 99 01/12/19 04:00 Room Air 01/12/19 04:00 96 01/12/19 03:00 103 18 135/65 (88) 99 01/12/19 02:00 98.5 103 19 111/66 (81) 96 01/12/19 01:00 99 19 145/77 (99) 96 01/12/19 00:00 Room Air 01/12/19 00:00 98 01/12/19 00:00 99 19 134/62 (86) 96 01/12/19 00:00 2.0 01/11/19 23:00 98 18 131/57 (81) 100 01/11/19 22:00 94 15 142/64 (90) 97 01/11/19 21:00 98.5 95 18 144/64 (90) 98 01/11/19 20:00 Room Air 01/11/19 20:00 103 20 130/70 (90) 96 01/11/19 20:00 98 01/11/19 20:00 2.0 01/11/19 19:23 96 Nasal Cannula 2.0 28 01/11/19 19:00 104 22 137/70 (92) 97 01/11/19 18:00 99 19 121/95 (104) 98 01/11/19 17:24 104 147/65 01/11/19 17:00 108 22 147/65 (92) 97 01/11/19 16:00 105 01/11/19 16:00 Room Air 01/11/19 16:00 98.4 102 20 147/60 (89) 97 01/11/19 16:00 2.0 01/11/19 15:00 96 21 130/71 (90) 97 01/11/19 14:00 99 22 128/71 (90) 98 01/11/19 13:00 102 22 145/67 (93) 97 01/11/19 12:00 108 01/11/19 12:00 99.1 104 18 141/76 (97) 99 01/11/19 12:00 2.0 01/11/19 12:00 Room Air Status: awake, alert Lungs: normal breath sounds, clear Heart: regular rhythm, no gallop/murmur, tachycardia Abdomen: soft, other - tender, few BS Extremities: no C/C/E Accucheck: 168 Micha Ziegler MD Jan 12, 2019 11:58
--- NOTE | 2019-01-12 12:39 | Infectious Diseases Prog Note ---
Assessment/Plan Assessment/Plan ASSESSMENT AND PLAN: 1. leukocytosis, fevers, ? sepsis, possible intra-abdominal infection/early sbo , s/p exploratory laparotomy and small bowel segmental resection, fungemia risk with hx of tpn and abx, + picc line s/p surgery for post-operative leak - 01/07/19, bfc with jeff albicans - antibiotics - meropenem and micafungin, hold vancomycin with mild increase in creatinine - cultures noted, bfc - jeff, blood cultures negative - monitor labs, leukocytosis and fevers resolved - transfer out of icu - monitor cr 2. 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 3. Liver transplantation. 4. Sclerosing cholangitis. 5. Ulcerative colitis. 6. The patient is anemic. 7. History of cholecystectomy, appendectomy, hysterectomy, and proctocolectomy. 8. History of multiple abdominal operations. 9. Allergies to codeine, hydromorphone, metoclopramide, morphine, and sulfa. 10. Family doctor is Noncontributory. 11. Social history is negative. 12. MAR was noted. 13. Case discussed with RN. 14. Case discussed with the patient. 15. Continue treatment per Dr. Sotomayor and consultants. Subjective Constitutional: Reports: other - being transferred out of icu; Denies: fever HEENT: Denies: congestion Respiratory: Denies: shortness of breath Cardiovascular: Denies: chest pain Gastrointestinal/Abdominal: Reports: other - no abdominal pain ; Denies: nausea , vomiting Allergies: Coded Allergies: CODEINE (Verified Allergy, Severe, 12/17/18) Face contractions HYDROMORPHONE (Verified Allergy, Severe, Itching, 12/17/18) Itching whole body METOCLOPRAMIDE (Verified Allergy, Severe, 12/17/18) Face contractions MORPHINE (Verified Allergy, Severe, Shortness of Breath, 12/17/18) SULFA (SULFONAMIDE ANTIBIOTICS) (Verified Allergy, Severe, 12/17/18) Face contractions Objective Vital Signs Last 24 Hour Vital Signs Date Time Temp Pulse Resp B/P (MAP) Pulse Ox O2 Delivery O2 Flow Rate FiO2 01/12/19 12:04 Room Air 01/12/19 12:01 98.1 107 24 127/81 (96) 97 01/12/19 11:00 102 21 127/81 (96) 97 01/12/19 10:00 101 21 151/92 (111) 98 01/12/19 09:24 103 150/79 01/12/19 09:23 103 150/79 01/12/19 09:23 150/79 01/12/19 09:00 101 21 145/69 (94) 98 01/12/19 08:08 2.0 01/12/19 08:00 98.2 103 21 150/79 (102) 97 01/12/19 08:00 108 01/12/19 08:00 Room Air 01/12/19 07:00 103 21 139/68 (91) 98 01/12/19 06:52 99 Nasal Cannula 2.0 28 01/12/19 04:00 2.0 01/12/19 04:00 94 13 111/53 (72) 99 01/12/19 04:00 Room Air 01/12/19 04:00 96 01/12/19 03:00 103 18 135/65 (88) 99 01/12/19 02:00 98.5 103 19 111/66 (81) 96 01/12/19 01:00 99 19 145/77 (99) 96 01/12/19 00:00 Room Air 01/12/19 00:00 98 01/12/19 00:00 99 19 134/62 (86) 96 01/12/19 00:00 2.0 01/11/19 23:00 98 18 131/57 (81) 100 01/11/19 22:00 94 15 142/64 (90) 97 01/11/19 21:00 98.5 95 18 144/64 (90) 98 01/11/19 20:00 Room Air 01/11/19 20:00 103 20 130/70 (90) 96 01/11/19 20:00 98 01/11/19 20:00 2.0 01/11/19 19:23 96 Nasal Cannula 2.0 28 01/11/19 19:00 104 22 137/70 (92) 97 01/11/19 18:00 99 19 121/95 (104) 98 01/11/19 17:24 104 147/65 01/11/19 17:00 108 22 147/65 (92) 97 01/11/19 16:00 105 01/11/19 16:00 Room Air 01/11/19 16:00 98.4 102 20 147/60 (89) 97 01/11/19 16:00 2.0 01/11/19 15:00 96 21 130/71 (90) 97 01/11/19 14:00 99 22 128/71 (90) 98 01/11/19 13:00 102 22 145/67 (93) 97 Height (Feet): 5 Height (Inches): 3.00 Weight (Pounds): 141 General Appearance: no acute distress HEENT: normocephalic Respiratory/Chest: lungs clear, normal breath sounds, no respiratory distress Cardiovascular: normal rate, regular rhythm, no gallop/murmur Abdomen: normal bowel sounds, soft, non tender, no organomegaly Objective CT scan abdomen and pelvis: IMPRESSION: Status post recent abdominal surgery with creation of a left lower quadrant Yajaira ileostomy. Good bowel and bag opacification with no evidence of bowel obstruction. Unusual, markedly distended unopacified loop of bowel in the pelvis. Although unopacified, this does not appear to be an abscess as there is a wall and other characteristics more in keeping with bowel. Would consider a large diverticulum or possibly remnant of the previous Kock pouch or part of the small bowel leading to the old pouch as those segments are sometimes quite distended. Status post liver transplant. Status post cholecystectomy. Mild basal atelectasis. Chest x-ray - no pna, report noted CT abdomen/pelvis - 12/30/18 - Impression: Postsurgical changes, as described Unusual tubular structure filled mostly with gas but also some fluid communicating with the small bowel at the site of a right lower quadrant enteroenterostomy. Uncertain as to whether this represents an unusual large diverticulum, a true extraluminal gas collection, or a portion of an old continent ileostomy pouch. This is also previously described Dilated proximal small bowel proximal to the enteroenterostomy with slow forward propulsion of contents. Partial small bowel obstruction not completely excludable although unlikely given evidence of forward propulsion of contrast and filling of the ileostomy on prior 12/26/2018 exam; findings most likely functional in nature. Correlate with clinical findings Small anterior pelvic and deep pelvic fluid pockets, most likely represent retained postoperative fluid collections. Abscess as etiology of any of these not completely excludable; correlation with clinical findings recommended Postsurgical changes of the liver status post transplantation Punctate nonobstructing bilateral intrarenal calculi Bilateral basilar pulmonary parenchymal atelectasis and/or scarring Chest x-ray - 01/07/19 - Images previously reviewed in person with Dr. Sotomayor Interval placement of a right transjugular central line, catheter tip in the region of the high right atrium. Left arm PICC line remains in place with the catheter tip at the cavoatrial junction. No evidence of pneumothorax. No definite focal airspace consolidation or pleural effusion. Surgical clips noted projecting over the upper abdomen. Laboratory Tests Test 01/12/19 04:00 White Blood Count 8.9 K/UL (4.8-10.8) Red Blood Count 3.31 M/UL (4.20-5.40) L Hemoglobin 9.9 G/DL (12.0-16.0) L Hematocrit 30.5 % (37.0-47.0) L Mean Corpuscular Volume 92 FL (80-99) Mean Corpuscular Hemoglobin 29.9 PG (27.0-31.0) Mean Corpuscular Hemoglobin Concent 32.4 G/DL (32.0-36.0) Red Cell Distribution Width 12.9 % (11.6-14.8) Platelet Count 462 K/UL (150-450) H Mean Platelet Volume 6.0 FL (6.5-10.1) L Neutrophils (%) (Auto) 75.4 % (45.0-75.0) H Lymphocytes (%) (Auto) 9.0 % (20.0-45.0) L Monocytes (%) (Auto) 6.0 % (1.0-10.0) Eosinophils (%) (Auto) 8.6 % (0.0-3.0) H Basophils (%) (Auto) 1.0 % (0.0-2.0) Sodium Level 140 MMOL/L (136-145) Potassium Level 4.0 MMOL/L (3.5-5.1) Chloride Level 105 MMOL/L (98-107) Carbon Dioxide Level 25 MMOL/L (21-32) Anion Gap 10 mmol/L (5-15) Blood Urea Nitrogen 36 mg/dL (7-18) H Creatinine 1.4 MG/DL (0.55-1.30) H Estimat Glomerular Filtration Rate 37.5 mL/min (>60) Glucose Level 167 MG/DL (74-106) H Calcium Level 10.1 MG/DL (8.5-10.1) Total Bilirubin 0.2 MG/DL (0.2-1.0) Aspartate Amino Transf (AST/SGOT) 23 U/L (15-37) Alanine Aminotransferase (ALT/SGPT) 26 U/L (12-78) Alkaline Phosphatase 342 U/L (46-116) H Total Protein 6.6 G/DL (6.4-8.2) Albumin 1.7 G/DL (3.4-5.0) L Globulin 4.9 g/dL Albumin/Globulin Ratio 0.3 (1.0-2.7) L Current Medications Medications (Trade) Dose Ordered Sig/Kajal Route PRN Reason Start Time Stop Time Status Last Admin Dose Admin Acetaminophen (Tylenol) 650 mg Q4H PRN ORAL Mild Pain/Temp > 100.2 01/04/19 21:00 01/25/19 20:59 Acetaminophen (Tylenol) 650 mg Q6H PRN ORAL headache 01/04/19 20:45 01/16/19 14:44 01/10/19 14:38 Al Hydroxide/Mg Hydroxide (Mylanta) 30 ml Q6H PRN ORAL dyspepsia 01/04/19 21:30 01/27/19 09:29 01/11/19 21:36 Amlodipine Besylate (Norvasc) 5 mg BID ORAL 01/05/19 09:00 02/02/19 08:59 01/12/19 09:24 Chlorhexidine Gluconate (Yulia-Hex 2%) 1 applic DAILY@2000 TOPIC 01/04/19 20:00 01/16/19 19:59 01/11/19 20:07 Clonidine HCl (Catapres Tab) 0.1 mg Q6H PRN SL SBP>150 mmHg 01/04/19 22:00 01/21/19 21:59 01/05/19 11:56 Dextrose 1,000 ml @ 0 mls/hr Q24H PRN IV PN interrupted or unavailable 01/04/19 20:00 01/19/19 19:59 Dextrose (Dextrose 50%) 25 ml Q30M PRN IV Hypoglycemia 01/04/19 19:15 01/21/19 12:44 Dextrose (Dextrose 50%) 50 ml Q30M PRN IV Hypoglycemia 01/04/19 19:15 01/21/19 12:44 Dextrose/ Electrolytes 1,000 ml @ 100 mls/hr Q10H IV 01/12/19 09:30 02/11/19 09:29 01/12/19 09:24 Diphenhydramine HCl (Benadryl) 50 mg Q4H PRN ORAL Itching 01/04/19 20:00 01/26/19 19:59 Fat Emulsion Intravenous 216 ml/Amino Acids/ Electrolytes/ Dextrose 1,776 ml @ 74 mls/hr Q24H IV 01/04/19 20:00 01/29/19 19:59 01/11/19 20:07 Fentanyl (Duragesic) 1 patch Q72H TDERMAL 01/12/19 09:00 01/19/19 08:59 01/12/19 10:05 Hydralazine HCl (Apresoline) 10 mg Q4H PRN IV For High Blood Pressure 01/05/19 12:19 02/04/19 12:18 01/07/19 18:36 Insulin Aspart (NovoLOG) Q6HR SUBQ 01/05/19 00:00 01/21/19 17:59 01/12/19 06:07 Ketorolac Tromethamine (Toradol 30mg) 15 mg Q6H PRN IV Breakthrough Pain 01/09/19 16:00 01/14/19 15:59 01/12/19 02:01 Levothyroxine Sodium (Synthroid) 100 mcg DAILY IV 01/05/19 09:00 02/04/19 08:59 01/12/19 10:01 Lisinopril (Prinivil) 40 mg DAILY ORAL 01/05/19 09:00 01/30/19 08:59 01/12/19 09:23 Meropenem 1 gm/ Sodium Chloride 100 ml @ 200 mls/hr Q8HR IVPB 01/11/19 22:00 01/16/19 21:59 01/12/19 06:06 Metoprolol Succinate (Toprol XL) 50 mg DAILY ORAL 01/10/19 09:00 01/23/19 08:59 01/12/19 09:23 Micafungin Sodium 100 mg/Sodium Chloride 110 ml @ 110 mls/hr Q24H IVPB 01/08/19 20:00 01/14/19 19:59 01/11/19 20:07 Miscellaneous Medication (fentaNYL Destruction) 1 ea Q72H MISC 01/12/19 08:59 02/11/19 08:58 01/12/19 08:59 Mycophenolate Mofetil (Cellcept) 750 mg Q12HR ORAL 01/04/19 21:00 01/24/19 08:59 01/12/19 09:22 Naloxone HCl (Narcan) 0.1 mg PRN IV Sedation scale 3 or 4 01/04/19 19:00 02/03/19 13:44 Ondansetron HCl (Zofran) 4 mg Q6H PRN IVP Nausea & Vomiting 01/04/19 19:15 01/20/19 07:14 01/12/19 10:12 Pantoprazole (Protonix) 40 mg DAILY IVP 01/05/19 09:00 01/25/19 08:59 01/12/19 09:21 Prochlorperazine (Compazine) 10 mg Q6H PRN IVP Nausea & Vomiting 01/04/19 20:00 01/19/19 19:59 01/12/19 03:04 Sodium Chloride 250 ml @ 999 mls/hr ONCE IV 01/12/19 12:00 01/12/19 13:00 01/12/19 11:58 Tacrolimus (Prograf) 1 mg DAILY ORAL 01/05/19 09:00 02/04/19 08:59 01/12/19 09:22 Tacrolimus (Prograf) 2 mg BEDTIME ORAL 01/04/19 21:00 01/16/19 20:59 01/11/19 21:05 Trazodone HCl (Desyrel) 25 mg HSPRN PRN ORAL INSOMNIA 01/04/19 20:00 02/03/19 19:59 01/11/19 22:02 Philly Shelby MD Jan 12, 2019 12:39
--- NOTE | 2019-01-12 12:55 | NUR ---
TRANSFER TO FLOOR: Patient transferred to 3E,room 307-2 per bed awake,alert oriented in no distress. Report given to Lynsey RN. Belongings and medications given to receiving RN . Family and or S/O informed of transferand at bedside with pt.
--- NOTE | 2019-01-12 13:00 | NUR ---
NURSE NOTES: Pt transferred from [facility] via hospital bed w/family at bedside and belongings accounted for. Pt A&Ox4, VSS, and in no apparent distress at this time. MARILY PICC line & rt IJ intact/asymptomatic w/TPN & IVF running; surgical dressing C/D/I; abdominal binder on; and ileostomy intact and draining well. Will continue to monitor.
[2019-01-12] MEDS ORDERED: Naloxone 0.4mg/ml Inj IV PRN (13:30)
[2019-01-12] MEDS: D5 1/2NS w/KCl 40meq 1000ml 1,000 ML IV SCH ×3 (13:35→21:49)
--- NOTE | 2019-01-12 19:47 | NUR ---
HAND-OFF: Report given to PATRICK Zamarripa.
[2019-01-12] MEDS ORDERED: Dextrose 10% 1,000 ML IV PRN (20:00)
[2019-01-12] MEDS ORDERED: Micafungin 100 MG in NS 110 ML IVPB SCH (20:00)
--- NOTE | 2019-01-12 21:00 | NUR ---
NURSE NOTES: Patient in bed awake and oriented. BP 161/82 gave PRN clonidine. PICC Line and IJ TLC intact with clean dressings. Pickett catheter draining well. Patient had a episode of vomiting x1. Gave PRN zofran and elevated the patients head. Needs attended. Call light within reach.
[2019-01-12] MEDS: Micafungin 100 MG in NS 110 ML IVPB SCH (21:26)
[2019-01-12] MEDS: Dyna-Hex 2% Top Sol 2oz TOPIC SCH (21:27)
[2019-01-12] MEDS: Fat Emulsion Iv 20% 216 ML in Tpn 1,560 ML IV SCH (21:49)
--- NOTE | 2019-01-12 23:20 | NUR ---
NURSE NOTES: Patient in bed resting comfortably. No more nausea. No pain. VSS.
[2019-01-13] VITALS: BP 127/74
[2019-01-13] MEDS: TraZODone HCl 25 mg tablet ORAL PRN (00:24)
[2019-01-13] MEDS: NovoLOG Insulin Flexpen SUBQ SCH ×5 (00:35→23:37)
[2019-01-13] MEDS: Ketorolac 30mg Inj IV PRN (03:28)
[2019-01-13 04:00] VITALS: BP 133/76
[2019-01-13 06:21] LABS: ALANINE AMINOTRANSFERASE 32 U/L (12-78); ALBUMIN 1.7 G/DL (3.4-5.0); ALBUMIN/GLOBULIN RATIO 0.4 (1.0-2.7); ALKALINE PHOSPHATASE 340 U/L (46-116); ANION GAP 9 mmol/L (5-15); ASPARTATE AMINO TRANSFERASE 25 U/L (15-37); BILIRUBIN,TOTAL 0.2 MG/DL (0.2-1.0); BLOOD UREA NITROGEN 37 mg/dL (7-18); CALCIUM 9.7 MG/DL (8.5-10.1); CARBON DIOXIDE 23 MMOL/L (21-32); CHLORIDE 106 MMOL/L (98-107); CREATININE 1.4 MG/DL (0.55-1.30); PHOSPHORUS 3.1 MG/DL (2.5-4.9); POTASSIUM 4.8 MMOL/L (3.5-5.1); SODIUM 138 MMOL/L (136-145)
[2019-01-13 06:37] LABS: BASOPHILS % (AUTO) 1.1 % (0.0-2.0); EOSINOPHILS % (AUTO) 10.6 % (0.0-3.0); HEMATOCRIT 29.8 % (37.0-47.0); HEMOGLOBIN 9.5 G/DL (12.0-16.0); LYMPHOCYTES % (AUTO) 11.7 % (20.0-45.0); MEAN CORPUSCULAR VOLUME 93 FL (80-99); MONOCYTES % (AUTO) 7.1 % (1.0-10.0); NEUTROPHILS % (AUTO) 69.5 % (45.0-75.0); PLATELET COUNT 481 K/UL (150-450); RED BLOOD COUNT 3.22 M/UL (4.20-5.40); RED CELL DISTRIBUTION WIDTH 12.9 % (11.6-14.8); WHITE BLOOD COUNT 6.7 K/UL (4.8-10.8)
--- NOTE | 2019-01-13 07:57 | NUR ---
NURSE NOTES: AWAKE/ALERT. PAIN SCALE 2/10. IN NO ACUTE DISTRESS..
[2019-01-13 08:01] VITALS: BP 139/80
[2019-01-13] MEDS: Mycophenolate 250mg cap ORAL SCH ×2 (08:41→21:03)
[2019-01-13] MEDS: Metoprolol Succinate XL 50mg tab ORAL SCH (08:41)
[2019-01-13] MEDS: Pantoprazole Inj IVP SCH (08:42)
[2019-01-13] MEDS: Lisinopril 20mg tab ORAL SCH (09:03)
[2019-01-13] MEDS: D5 1/2NS w/KCl 40meq 1000ml 1,000 ML IV SCH ×3 (09:30→21:00)
--- NOTE | 2019-01-13 09:41 | General Progress Note ---
Progress Note Progress Note AVSS Still with intermittent nausea and occasional emesis. allergic to Reglan Abdomen soft, healing nicely, stoma pink Urine 1400 Gastrostomy 1520 Ileostomy 90 HAROLDO drain 10 serous WBC 6700 Hgb 9.5 Platelts up 481,000 BUN 37 Cr 1.4 Imp. Ileus elevated BUN and Cr Plan; d/c Toradol continue npo except po meds Lars Sotomayor MD Jan 13, 2019 09:41
[2019-01-13] MEDS ORDERED: NS 250 ML IVPB ONE (10:30)
--- NOTE | 2019-01-13 11:03 | CDS Physician Query ---
Clarification is required for compliance, coding accuracy, and to reflect severity of illness for this patient Dear Philly Ness MD Date: 01/13/2019 CDS: Darrel Kaiser According to the clinical indications above, please indicate below the condition Pt has: leukocytosis, fevers, possible intra-abdominal infection. WBC: 24.8--->25.3 Tx: IV VANCOMYCIN, IV MEROPENEM, IV MICAFUNGIN PHYSICIAN RESPONSE: Sepsis SIRS SIRS with organ dysfunction Septic Shock Not applicable Other: Present on Admission: Yes No Clinically Undetermined Physician signature Date Please also document in your Progress Notes and/or Discharge Summary and indicate if the condition was present on admission. MTDD
--- NOTE | 2019-01-13 11:11 | GI Progress Note ---
Assessment/Plan Problems: (1) Malfunctioning Kock Pouch (2) History of liver transplant ICD Codes: Z94.4 - Liver transplant status SNOMED: 680172014 Status: progressing Status Narrative Discussed with Dr. Dozier. Assessment/Plan compazine prn, patient has allergy to reglan fu LFTs>>> stable now on TPN cellcept 750 BID prograft 3 gm per day monitor for Lyte protonix will fu labs fu surg recs abx per ID GT to suction with high out put post op ileus The patient was seen and examined at bedside and all new and available data was reviewed in the patients chart. I agree with the above findings, impression and plan. (Patient seen earlier today. Signature stamp does not reflect patient encounter time.). - Max Dozier MD Subjective Subjective nausea earlier this morning Objective Last 24 Hour Vital Signs Date Time Temp Pulse Resp B/P (MAP) Pulse Ox O2 Delivery O2 Flow Rate FiO2 01/13/19 09:03 138/80 01/13/19 09:00 Room Air 01/13/19 08:41 92 138/80 01/13/19 08:41 92 138/80 01/13/19 08:01 97.2 92 18 139/80 (99) 97 01/13/19 04:00 98.2 91 18 133/76 (95) 98 01/13/19 00:00 98.4 94 18 127/74 (91) 99 01/12/19 22:40 Room Air 01/12/19 21:30 162/81 01/12/19 20:00 99.1 97 20 161/82 (108) 97 01/12/19 18:15 100 138/76 01/12/19 16:00 97.1 100 19 138/76 (96) 98 01/12/19 16:00 Room Air 01/12/19 14:01 156/82 01/12/19 12:45 97.6 98 20 156/82 (106) 96 01/12/19 12:04 Room Air 01/12/19 12:01 98.1 107 24 127/81 (96) 97 Intake and Output 01/12/19 01/13/19 19:00 07:00 Intake Total 910 ml 1740 ml Output Total 1995 ml 1520 ml Balance -1085 ml 220 ml Free Water 20 ml IV Total 870 ml 1740 ml Other 20 ml Output Urine Total 1245 ml 650 ml Drainage Total 10 ml Other 750 ml 860 ml Laboratory Tests Test 01/13/19 05:30 White Blood Count 6.7 K/UL (4.8-10.8) Red Blood Count 3.22 M/UL (4.20-5.40) L Hemoglobin 9.5 G/DL (12.0-16.0) L Hematocrit 29.8 % (37.0-47.0) L Mean Corpuscular Volume 93 FL (80-99) Mean Corpuscular Hemoglobin 29.5 PG (27.0-31.0) Mean Corpuscular Hemoglobin Concent 31.9 G/DL (32.0-36.0) L Red Cell Distribution Width 12.9 % (11.6-14.8) Platelet Count 481 K/UL (150-450) H Mean Platelet Volume 6.1 FL (6.5-10.1) L Neutrophils (%) (Auto) 69.5 % (45.0-75.0) Lymphocytes (%) (Auto) 11.7 % (20.0-45.0) L Monocytes (%) (Auto) 7.1 % (1.0-10.0) Eosinophils (%) (Auto) 10.6 % (0.0-3.0) H Basophils (%) (Auto) 1.1 % (0.0-2.0) Urine Osmolality 448 mOsm/kg (429-449) Sodium Level 138 MMOL/L (136-145) Potassium Level 4.8 MMOL/L (3.5-5.1) Chloride Level 106 MMOL/L (98-107) Carbon Dioxide Level 23 MMOL/L (21-32) Anion Gap 9 mmol/L (5-15) Blood Urea Nitrogen 37 mg/dL (7-18) H Creatinine 1.4 MG/DL (0.55-1.30) H Estimat Glomerular Filtration Rate 37.5 mL/min (>60) Glucose Level 122 MG/DL (74-106) H Osmolality 302 mOsm/kg (297-317) Calcium Level 9.7 MG/DL (8.5-10.1) Phosphorus Level 3.1 MG/DL (2.5-4.9) Magnesium Level 1.8 MG/DL (1.8-2.4) Total Bilirubin 0.2 MG/DL (0.2-1.0) Aspartate Amino Transf (AST/SGOT) 25 U/L (15-37) Alanine Aminotransferase (ALT/SGPT) 32 U/L (12-78) Alkaline Phosphatase 340 U/L (46-116) H Total Protein 6.5 G/DL (6.4-8.2) Albumin 1.7 G/DL (3.4-5.0) L Globulin 4.8 g/dL Albumin/Globulin Ratio 0.4 (1.0-2.7) L Height (Feet): 5 Height (Inches): 3.00 Weight (Pounds): 141 General Appearance: WD/WN, no apparent distress, alert Cardiovascular: normal rate Respiratory/Chest: normal breath sounds, no respiratory distress Abdominal Exam: normal bowel sounds, non tender, soft, other - ileostomy Extremities: normal range of motion, non-tender Jeyson Luna NP Jan 13, 2019 11:11
--- NOTE | 2019-01-13 11:40 | NUR ---
NURSE NOTES: co pressur abdominal pain. dr jason carrillo called left message to return call.
[2019-01-13 12:00] VITALS: BP 154/82
--- NOTE | 2019-01-13 12:00 | NUR ---
NURSE NOTES: GT CONNECTED TO MEDIUM INTERMITTENT SUCTION ORDERED. DRAINING LIGHT BROWNISH GASTRIC LIQUID. WILL CONTINUE TO MONITOR PT.
[2019-01-13] MEDS ORDERED: fentaNYL 100 mcg/2 mL IV PRN ×2 (12:30)
--- NOTE | 2019-01-13 12:54 | NUR ---
CASE MANAGEMENT:REVIEW 01/13/19 SI: POD #26...S/P RESECTION OF FAILED KOCJ POUCH POD#9...EXPL LAP W/SMALL BOWEL RESECTION AND RELOCATION OF ILEOSTOMY POD #6...S/P REPAIR OF STAPLE LINE DEHISCENCE POD #4...S/P REMOVE WOUND VAC. REPAIR BOWEL LEAK.ABDOMINAL WALL CLOSURE 97.2 92 18 139/80 97% ON RA H/H-9.5/29.8 BUN37 CR+1.4 IS: TPN/IL @ 74/HR IV MICAFUNGIN Q24 IV MEROPENEM Q12 CELLCEPT PO Q12 PROGRAF PO QHS LIDOCAINE PATCH NORVASC PO BID IV SYNTHROID QD LISINOPRIL PO QD TOPROL XL NG QD : MED/SURG STATUS 3 EAST PLAN: ILEUS ~ CONTINUE NPO
--- NOTE | 2019-01-13 13:30 | NUR ---
NURSE NOTES: SEEN BY Freddy AND ASSISTED OOB , AMBULATED FEW STEPS IN THE ROOM THEN UP IN THE CHAIR FOR 15MINUTES. TOLERATED THEN ASSISTED BACK TO BED. MADE COMFORTABLE. CALL LIGHT ON REACH.
[2019-01-13] MEDS ORDERED: fentaNYL 100 mcg/2 mL SUBQ PRN (13:45)
--- NOTE | 2019-01-13 14:09 | Infectious Diseases Prog Note ---
Assessment/Plan Assessment/Plan ASSESSMENT AND PLAN: 1. leukocytosis, fevers, ? sepsis, possible intra-abdominal infection/early sbo , s/p exploratory laparotomy and small bowel segmental resection, fungemia risk with hx of tpn and abx, + picc line s/p surgery for post-operative leak - 01/07/19, bfc with jeff albicans - meropenem and micafungin - cultures noted, bfc - jeff, blood cultures negative - monitor labs, leukocytosis and fevers resolved - transferred out of icu - monitor cr 2. 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 3. Liver transplantation. 4. Sclerosing cholangitis. 5. Ulcerative colitis. 6. The patient is anemic. 7. History of cholecystectomy, appendectomy, hysterectomy, and proctocolectomy. 8. History of multiple abdominal operations. 9. Allergies to codeine, hydromorphone, metoclopramide, morphine, and sulfa. 10. Family doctor is Noncontributory. 11. Social history is negative. 12. MAR was noted. 13. Case discussed with RN. 14. Case discussed with the patient. 15. Continue treatment per Dr. Sotomayor and consultants. Subjective Constitutional: Reports: fatigue; Denies: fever HEENT: Denies: congestion Respiratory: Denies: shortness of breath Cardiovascular: Denies: chest pain Gastrointestinal/Abdominal: Reports: other - no significant abdominal pain ; Denies: nausea, vomiting Genitourinary: Reports: other - + morales Neurologic: Denies: headache Psychiatric: Denies: depression Skin: Denies: rash Hematologic: Denies: bleeding Musculoskeletal: Reports: pain - controlled Allergies: Coded Allergies: CODEINE (Verified Allergy, Severe, 12/17/18) Face contractions HYDROMORPHONE (Verified Allergy, Severe, Itching, 12/17/18) Itching whole body METOCLOPRAMIDE (Verified Allergy, Severe, 12/17/18) Face contractions MORPHINE (Verified Allergy, Severe, Shortness of Breath, 12/17/18) SULFA (SULFONAMIDE ANTIBIOTICS) (Verified Allergy, Severe, 12/17/18) Face contractions Objective Vital Signs Last 24 Hour Vital Signs Date Time Temp Pulse Resp B/P (MAP) Pulse Ox O2 Delivery O2 Flow Rate FiO2 01/13/19 13:04 154/82 01/13/19 12:00 98.7 94 18 154/82 (106) 97 01/13/19 09:03 138/80 01/13/19 09:00 Room Air 01/13/19 08:41 92 138/80 01/13/19 08:41 92 138/80 01/13/19 08:01 97.2 92 18 139/80 (99) 97 01/13/19 04:00 98.2 91 18 133/76 (95) 98 01/13/19 00:00 98.4 94 18 127/74 (91) 99 01/12/19 22:40 Room Air 01/12/19 21:30 162/81 01/12/19 20:00 99.1 97 20 161/82 (108) 97 01/12/19 18:15 100 138/76 01/12/19 16:00 97.1 100 19 138/76 (96) 98 01/12/19 16:00 Room Air Height (Feet): 5 Height (Inches): 3.00 Weight (Pounds): 141 General Appearance: no acute distress HEENT: normocephalic, atraumatic, anicteric, mucous membranes moist Respiratory/Chest: lungs clear, normal breath sounds, no respiratory distress, no accessory muscle use Cardiovascular: normal rate, regular rhythm Abdomen: soft, non tender, no organomegaly, non distended Genitourinary: other - + morales - urine clear Extremities: no cyanosis Skin: no rash Neurologic/Psychiatric: 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 Good bowel and bag opacification with no evidence of bowel obstruction. Unusual, markedly distended unopacified loop of bowel in the pelvis. Although unopacified, this does not appear to be an abscess as there is a wall and other characteristics more in keeping with bowel. Would consider a large diverticulum or possibly remnant of the previous Kock pouch or part of the small bowel leading to the old pouch as those segments are sometimes quite distended. Status post liver transplant. Status post cholecystectomy. Mild basal atelectasis. Chest x-ray - no pna, report noted CT abdomen/pelvis - 12/30/18 - Impression: Postsurgical changes, as described Unusual tubular structure filled mostly with gas but also some fluid communicating with the small bowel at the site of a right lower quadrant enteroenterostomy. Uncertain as to whether this represents an unusual large diverticulum, a true extraluminal gas collection, or a portion of an old continent ileostomy pouch. This is also previously described Dilated proximal small bowel proximal to the enteroenterostomy with slow forward propulsion of contents. Partial small bowel obstruction not completely excludable although unlikely given evidence of forward propulsion of contrast and filling of the ileostomy on prior 12/26/2018 exam; findings most likely functional in nature. Correlate with clinical findings Small anterior pelvic and deep pelvic fluid pockets, most likely represent retained postoperative fluid collections. Abscess as etiology of any of these not completely excludable; correlation with clinical findings recommended Postsurgical changes of the liver status post transplantation Punctate nonobstructing bilateral intrarenal calculi Bilateral basilar pulmonary parenchymal atelectasis and/or scarring Chest x-ray - 01/07/19 - Images previously reviewed in person with Dr. Sotomayor Interval placement of a right transjugular central line, catheter tip in the region of the high right atrium. Left arm PICC line remains in place with the catheter tip at the cavoatrial junction. No evidence of pneumothorax. No definite focal airspace consolidation or pleural effusion. Surgical clips noted projecting over the upper abdomen. Microbiology Date/Time Source Procedure Growth Status 01/07/19 04:15 Blood Blood Culture - Final NO GROWTH AFTER 5 DAYS Complete 01/08/19 16:00 Stool Clostridium difficile Toxin Assay - Final Complete 01/06/19 12:55 Indwelling Cath Urine Culture - Final NO GROWTH AFTER 48 HOURS Complete 01/06/19 22:30 Abdominal Fluid Gram Stain - Final Complete 01/06/19 22:30 Body Fluid Culture - Final Jeff Albicans Complete Laboratory Tests Test 01/13/19 05:30 White Blood Count 6.7 K/UL (4.8-10.8) Red Blood Count 3.22 M/UL (4.20-5.40) L Hemoglobin 9.5 G/DL (12.0-16.0) L Hematocrit 29.8 % (37.0-47.0) L Mean Corpuscular Volume 93 FL (80-99) Mean Corpuscular Hemoglobin 29.5 PG (27.0-31.0) Mean Corpuscular Hemoglobin Concent 31.9 G/DL (32.0-36.0) L Red Cell Distribution Width 12.9 % (11.6-14.8) Platelet Count 481 K/UL (150-450) H Mean Platelet Volume 6.1 FL (6.5-10.1) L Neutrophils (%) (Auto) 69.5 % (45.0-75.0) Lymphocytes (%) (Auto) 11.7 % (20.0-45.0) L Monocytes (%) (Auto) 7.1 % (1.0-10.0) Eosinophils (%) (Auto) 10.6 % (0.0-3.0) H Basophils (%) (Auto) 1.1 % (0.0-2.0) Urine Osmolality 448 mOsm/kg (429-449) Sodium Level 138 MMOL/L (136-145) Potassium Level 4.8 MMOL/L (3.5-5.1) Chloride Level 106 MMOL/L (98-107) Carbon Dioxide Level 23 MMOL/L (21-32) Anion Gap 9 mmol/L (5-15) Blood Urea Nitrogen 37 mg/dL (7-18) H Creatinine 1.4 MG/DL (0.55-1.30) H Estimat Glomerular Filtration Rate 37.5 mL/min (>60) Glucose Level 122 MG/DL (74-106) H Osmolality 302 mOsm/kg (297-317) Calcium Level 9.7 MG/DL (8.5-10.1) Phosphorus Level 3.1 MG/DL (2.5-4.9) Magnesium Level 1.8 MG/DL (1.8-2.4) Total Bilirubin 0.2 MG/DL (0.2-1.0) Aspartate Amino Transf (AST/SGOT) 25 U/L (15-37) Alanine Aminotransferase (ALT/SGPT) 32 U/L (12-78) Alkaline Phosphatase 340 U/L (46-116) H Total Protein 6.5 G/DL (6.4-8.2) Albumin 1.7 G/DL (3.4-5.0) L Globulin 4.8 g/dL Albumin/Globulin Ratio 0.4 (1.0-2.7) L Current Medications Medications (Trade) Dose Ordered Sig/Kajal Route PRN Reason Start Time Stop Time Status Last Admin Dose Admin Acetaminophen (Tylenol) 650 mg Q4H PRN ORAL Mild Pain/Temp > 100.2 01/12/19 13:30 01/25/19 13:29 Acetaminophen (Tylenol) 650 mg Q6H PRN ORAL headache 01/12/19 13:30 01/16/19 13:29 Al Hydroxide/Mg Hydroxide (Mylanta) 30 ml Q6H PRN ORAL dyspepsia 01/12/19 14:00 01/27/19 13:59 Amlodipine Besylate (Norvasc) 5 mg BID ORAL 01/12/19 18:00 02/02/19 08:59 01/13/19 08:41 Chlorhexidine Gluconate (Yulia-Hex 2%) 1 applic DAILY@2000 TOPIC 01/12/19 20:00 01/16/19 19:59 01/12/19 21:27 Clonidine HCl (Catapres Tab) 0.1 mg Q6H PRN SL SBP>150 mmHg 01/12/19 13:30 01/21/19 13:29 01/13/19 13:04 Dextrose 1,000 ml @ 0 mls/hr Q24H PRN IV PN interrupted or unavailable 01/12/19 20:00 01/19/19 19:59 Dextrose (Dextrose 50%) 25 ml Q30M PRN IV Hypoglycemia 01/12/19 13:45 01/21/19 12:44 Dextrose (Dextrose 50%) 50 ml Q30M PRN IV Hypoglycemia 01/12/19 13:45 01/21/19 12:44 Dextrose/ Electrolytes 1,000 ml @ 100 mls/hr Q10H IV 01/12/19 13:30 02/11/19 09:29 01/13/19 12:49 Diphenhydramine HCl (Benadryl) 50 mg Q4H PRN ORAL Itching 01/12/19 14:00 01/26/19 13:59 Fat Emulsion Intravenous 216 ml/Amino Acids/ Electrolytes/ Dextrose 1,776 ml @ 74 mls/hr Q24H IV 01/12/19 20:00 01/29/19 19:59 01/12/19 21:49 Fentanyl (Duragesic) 1 patch Q72H TDERMAL 01/15/19 09:00 01/19/19 08:59 Fentanyl Citrate (Sublimaze 100 mcg/2 mL) 12.5 mcg Q3H PRN SUBQ Breakthrough Pain 01/13/19 13:45 01/20/19 13:44 Insulin Aspart (NovoLOG) Q6HR SUBQ 01/12/19 18:00 02/11/19 17:59 01/13/19 11:35 Levothyroxine Sodium (Synthroid) 100 mcg DAILY IV 01/13/19 09:00 02/04/19 08:59 01/13/19 08:43 Lisinopril (Prinivil) 40 mg DAILY ORAL 01/13/19 09:00 01/30/19 08:59 01/13/19 09:03 Meropenem 1 gm/ Sodium Chloride 100 ml @ 200 mls/hr Q12HR@0600,1800 IVPB 01/13/19 18:00 01/18/19 17:59 Metoprolol Succinate (Toprol XL) 50 mg DAILY ORAL 01/13/19 09:00 01/23/19 08:59 01/13/19 08:41 Micafungin Sodium 100 mg/Sodium Chloride 110 ml @ 110 mls/hr Q24H IVPB 01/12/19 20:00 01/18/19 19:59 01/12/19 21:26 Miscellaneous Medication (fentaNYL Destruction) 1 ea Q72H MISC 01/15/19 08:59 02/11/19 08:58 Mycophenolate Mofetil (Cellcept) 750 mg Q12HR ORAL 01/12/19 21:00 01/24/19 08:59 01/13/19 08:41 Naloxone HCl (Narcan) 0.1 mg PRN IV Sedation scale 3 or 4 01/12/19 13:30 02/03/19 13:44 Ondansetron HCl (Zofran) 4 mg Q6H PRN IVP Nausea & Vomiting 01/12/19 16:00 01/20/19 15:59 01/13/19 03:28 Pantoprazole (Protonix) 40 mg DAILY IVP 01/13/19 09:00 01/25/19 08:59 01/13/19 08:42 Prochlorperazine (Compazine) 10 mg Q6H PRN IVP Nausea & Vomiting 01/12/19 14:00 01/19/19 19:59 01/13/19 08:52 Tacrolimus (Prograf) 1 mg DAILY ORAL 01/13/19 09:00 02/04/19 08:59 01/13/19 08:40 Tacrolimus (Prograf) 2 mg BEDTIME ORAL 01/12/19 21:00 01/16/19 20:59 01/12/19 21:27 Trazodone HCl (Desyrel) 25 mg HSPRN PRN ORAL INSOMNIA 01/12/19 20:00 02/03/19 19:59 01/13/19 00:24 Philly Shelby MD Jan 13, 2019 14:09
[2019-01-13] MEDS ORDERED: Tubing IV Secondary IV ONE ×2 (14:57→14:59)
[2019-01-13] MEDS ORDERED: NS Irrig 1000ml ONE (14:57)
[2019-01-13] MEDS ORDERED: NS 500ML ONE (14:59)
[2019-01-13] MEDS ORDERED: NS 275ml ONE (14:59)
--- NOTE | 2019-01-13 15:19 | NUR ---
NURSE NOTES: C/O PRESSURE PAIN IN PCCY6KHS. GIVEN SUBLIMAZE 12,5MG SUBQ FOR BREAKTHROUGH PAIN. WILL CONTINUE TO MONITOR PT.
--- NOTE | 2019-01-13 15:35 | Cardiology Progress Note ---
Assessment/Plan Status Narrative 1. Malfunctioning Kock pouch continent ileostomy. 2. History of ulcerative colitis. 3. History of primary sclerosing cholangitis. 4. Status post multiple abdominal operations. 4.1. Appendectomy in 1964. 4.2. Proctocolectomy and Kock pouch in 1978. 4.3. Total abdominal hysterectomy and bilateral salpingo-oophorectomy 1983 4.4. Cholecystectomy in 1985. 4.5. Orthotopic liver transplantation in 1999. 4.6. Revision of Kock pouch and repair of fistula in 2010. HTN- New onset- Controlled on Norvasc /Lisinopril and Metoprolol Tachycardia- improved with IV Fluids and Beta Blockers. Renal insuff- Most probably due volume depletion ( High GT output), possibly due to Toradal- Creat 1.4 stable Assessment/Plan Clonidine 0.1 mg Q6h PRN Metoprolol 25 mg QD Zestril 40 mg QD. Norvasc 5 mg BID Monitor BP NS Bolus 250 given IV Fluids at 100 cch Repeat labs in AM. Encouraged increased ambulation. Discussed with RN. Subjective Cardiovascular: Reports: no symptoms Respiratory: Reports: no symptoms Gastrointestinal/Abdominal: Reports: no symptoms Genitourinary: Reports: no symptoms Subjective Still NPO Had N/V x1 Has been out of bed, ambulated. Pain controlled Objective Last 24 Hour Vital Signs Date Time Temp Pulse Resp B/P (MAP) Pulse Ox O2 Delivery O2 Flow Rate FiO2 01/13/19 13:04 154/82 01/13/19 12:00 98.7 94 18 154/82 (106) 97 01/13/19 09:03 138/80 01/13/19 09:00 Room Air 01/13/19 08:41 92 138/80 01/13/19 08:41 92 138/80 01/13/19 08:01 97.2 92 18 139/80 (99) 97 01/13/19 04:00 98.2 91 18 133/76 (95) 98 01/13/19 00:00 98.4 94 18 127/74 (91) 99 01/12/19 22:40 Room Air 01/12/19 21:30 162/81 01/12/19 20:00 99.1 97 20 161/82 (108) 97 01/12/19 18:15 100 138/76 01/12/19 16:00 97.1 100 19 138/76 (96) 98 01/12/19 16:00 Room Air General Appearance: no apparent distress, alert Cardiovascular: normal rate, regular rhythm, no gallop/murmur Respiratory/Chest: lungs clear Abdomen: soft, hypoactive bowel sounds - more audible than yesterday, tender Extremities: non-tender, normal inspection, no calf tenderness, no swelling Intake and Output 01/12/19 01/13/19 18:59 06:59 Intake Total 960 ml 1740 ml Output Total 2125 ml 1520 ml Balance -1165 ml 220 ml Free Water 20 ml IV Total 920 ml 1740 ml Other 20 ml Output Urine Total 1375 ml 650 ml Drainage Total 10 ml Other 750 ml 860 ml Laboratory Tests Test 01/13/19 05:30 White Blood Count 6.7 K/UL (4.8-10.8) Red Blood Count 3.22 M/UL (4.20-5.40) L Hemoglobin 9.5 G/DL (12.0-16.0) L Hematocrit 29.8 % (37.0-47.0) L Mean Corpuscular Volume 93 FL (80-99) Mean Corpuscular Hemoglobin 29.5 PG (27.0-31.0) Mean Corpuscular Hemoglobin Concent 31.9 G/DL (32.0-36.0) L Red Cell Distribution Width 12.9 % (11.6-14.8) Platelet Count 481 K/UL (150-450) H Mean Platelet Volume 6.1 FL (6.5-10.1) L Neutrophils (%) (Auto) 69.5 % (45.0-75.0) Lymphocytes (%) (Auto) 11.7 % (20.0-45.0) L Monocytes (%) (Auto) 7.1 % (1.0-10.0) Eosinophils (%) (Auto) 10.6 % (0.0-3.0) H Basophils (%) (Auto) 1.1 % (0.0-2.0) Urine Osmolality 448 mOsm/kg (429-449) Sodium Level 138 MMOL/L (136-145) Potassium Level 4.8 MMOL/L (3.5-5.1) Chloride Level 106 MMOL/L (98-107) Carbon Dioxide Level 23 MMOL/L (21-32) Anion Gap 9 mmol/L (5-15) Blood Urea Nitrogen 37 mg/dL (7-18) H Creatinine 1.4 MG/DL (0.55-1.30) H Estimat Glomerular Filtration Rate 37.5 mL/min (>60) Glucose Level 122 MG/DL (74-106) H Osmolality 302 mOsm/kg (297-317) Calcium Level 9.7 MG/DL (8.5-10.1) Phosphorus Level 3.1 MG/DL (2.5-4.9) Magnesium Level 1.8 MG/DL (1.8-2.4) Total Bilirubin 0.2 MG/DL (0.2-1.0) Aspartate Amino Transf (AST/SGOT) 25 U/L (15-37) Alanine Aminotransferase (ALT/SGPT) 32 U/L (12-78) Alkaline Phosphatase 340 U/L (46-116) H Total Protein 6.5 G/DL (6.4-8.2) Albumin 1.7 G/DL (3.4-5.0) L Globulin 4.8 g/dL Albumin/Globulin Ratio 0.4 (1.0-2.7) L Micha Ziegler MD Jan 13, 2019 15:35
--- NOTE | 2019-01-13 15:46 | NUR ---
NURSE NOTES: ENCOURAGED TO DO DEEP BREATHING AND USE OF INCENTIVE SPIROMETER. 02 SAT 100%.
--- NOTE | 2019-01-13 15:59 | NUR ---
NURSE NOTES: PAIN REASSESSED. O/10
[2019-01-13 16:00] VITALS: BP 135/71
--- NOTE | 2019-01-13 17:30 | NUR ---
NURSE NOTES: ASSISTED OOB, WALK IN THE ROOM THEN UP IN CHAIR.X 20MINUTES., TOLERATED. THE BACK TO BED.
--- NOTE | 2019-01-13 18:57 | NUR ---
NURSE NOTES: RESTING COMFORTABLY IN BED. IN NO APPARENT DISTRESS.
--- NOTE | 2019-01-13 19:22 | NUR ---
HAND-OFF: Report given to Liset HERNANDEZ RN.
[2019-01-13] MEDS: Dyna-Hex 2% Top Sol 2oz TOPIC SCH (20:59)
[2019-01-13] MEDS: Micafungin 100 MG in NS 110 ML IVPB SCH (21:00)
--- NOTE | 2019-01-13 21:00 | NUR ---
NURSES NOTE: Met patient in room, patient is alert and orieted x4, able to let needs be known. All due meds given. G-tube is connected to intermittent medium suction. Pickett catheter draining appropriately, urine is yellow. TPN hung according to order. No s/s of distress. Patient requested to sit up for some time in a chair. Moved with 2 person assist. IS encouraged and done with patient. Breathing pattern is unlabored. Patient will continue to be monitored. Call light within reach. Bed at lowest level.
[2019-01-13] MEDS: Fat Emulsion Iv 20% 216 ML in Tpn 1,560 ML IV SCH (21:01)
[2019-01-13] MEDS: fentaNYL 100 mcg/2 mL SUBQ PRN (22:08)
[2019-01-14] VITALS (7 sets, daily range): BP systolic 131–156; BP diastolic 75–98
[2019-01-14] MEDS: NovoLOG Insulin Flexpen SUBQ SCH ×3 (05:32→17:46)
[2019-01-14] MEDS: Micafungin 100 MG in NS 110 ML IVPB SCH ×2 (05:33→20:25)
[2019-01-14 05:39] LABS: BASOPHILS % (AUTO) 0.8 % (0.0-2.0); EOSINOPHILS % (AUTO) 9.7 % (0.0-3.0); HEMATOCRIT 29.8 % (37.0-47.0); HEMOGLOBIN 9.8 G/DL (12.0-16.0); LYMPHOCYTES % (AUTO) 13.3 % (20.0-45.0); MEAN CORPUSCULAR VOLUME 92 FL (80-99); MONOCYTES % (AUTO) 6.2 % (1.0-10.0); NEUTROPHILS % (AUTO) 69.9 % (45.0-75.0); PLATELET COUNT 541 K/UL (150-450); RED BLOOD COUNT 3.24 M/UL (4.20-5.40); RED CELL DISTRIBUTION WIDTH 13.1 % (11.6-14.8); WHITE BLOOD COUNT 8.2 K/UL (4.8-10.8)
[2019-01-14] MEDS: D5 1/2NS w/KCl 40meq 1000ml 1,000 ML IV SCH ×3 (05:48→16:39)
[2019-01-14 05:58] LABS: ALANINE AMINOTRANSFERASE 44 U/L (12-78); ALBUMIN 1.9 G/DL (3.4-5.0); ALBUMIN/GLOBULIN RATIO 0.4 (1.0-2.7); ALKALINE PHOSPHATASE 357 U/L (46-116); ANION GAP 8 mmol/L (5-15); ASPARTATE AMINO TRANSFERASE 36 U/L (15-37); BILIRUBIN,TOTAL 0.2 MG/DL (0.2-1.0); BLOOD UREA NITROGEN 31 mg/dL (7-18); CALCIUM 9.5 MG/DL (8.5-10.1); CARBON DIOXIDE 24 MMOL/L (21-32); CHLORIDE 104 MMOL/L (98-107); CREATININE 1.2 MG/DL (0.55-1.30); POTASSIUM 4.6 MMOL/L (3.5-5.1); SODIUM 136 MMOL/L (136-145)
--- NOTE | 2019-01-14 06:53 | NUR ---
NURSES NOTES: Patient was active through out the night using call buttom often for various requests. Sublimaze 8 mcg/2ml effective at 2240 assessment. Pain rating 2/10. All due meds given. No s/s of distress. GT patent and on intermittent medium suction. Pickett draining. HAROLDO drained. Bed at lowest level, call light within reach.
--- NOTE | 2019-01-14 07:28 | NUR ---
NURSES NOTES: Report given to ravinder Addendum: 01/14/19 at 0731 by Dulce Maria Torres RN Report given to Gaurang castellon Nurse
--- NOTE | 2019-01-14 07:31 | NUR ---
NURSE NOTES: AWAKE/ALERT.PAIN SCALE 2/10. NPO MAINTAINED. GT TO MEDIUM INTERMITTENT SUCTION DRAINING LIGHT BROWN LIQUID. IN NO ACUTE DISTRESS.
--- NOTE | 2019-01-14 08:39 | General Progress Note ---
Progress Note Progress Note AVSS Pain is decreasing but still requires intermittent SQ Fentanyl Abdomen soft, incisions healing, stoma pink Urine 1974 Gastrostomy 1889 Ileostomy 85 HAROLDO drain 25 serous WBC 8200 Hgb 9.8 Platelets up 541,000 BUN down 31 Cr down 1.2 Alk phos up slightly albumin up 1.9 Imp. Ileus Plan: continue current regimen Lars Sotomayor MD Jan 14, 2019 08:39
[2019-01-14] MEDS: Mycophenolate 250mg cap ORAL SCH ×2 (08:56→21:26)
[2019-01-14] MEDS: Lisinopril 20mg tab ORAL SCH (08:57)
[2019-01-14] MEDS: Metoprolol Succinate XL 50mg tab ORAL SCH (08:58)
[2019-01-14] MEDS: Pantoprazole Inj IVP SCH (08:58)
--- NOTE | 2019-01-14 09:07 | General Progress Note ---
Assessment/Plan Status: progressing Assessment/Plan: fu LFTs>>> stable now on TPN cellcept 750 BID prograft 3 gm per day monitor for Lyte protonix will fu labs fu surg recs abx per ID GT to suction cont compazine and Zofran no reglan patient is allergic to it Subjective Allergies: Coded Allergies: CODEINE (Verified Allergy, Severe, 12/17/18) Face contractions HYDROMORPHONE (Verified Allergy, Severe, Itching, 12/17/18) Itching whole body METOCLOPRAMIDE (Verified Allergy, Severe, 12/17/18) Face contractions MORPHINE (Verified Allergy, Severe, Shortness of Breath, 12/17/18) SULFA (SULFONAMIDE ANTIBIOTICS) (Verified Allergy, Severe, 12/17/18) Face contractions Subjective abd pain sleeping Objective Last 24 Hour Vital Signs Date Time Temp Pulse Resp B/P (MAP) Pulse Ox O2 Delivery O2 Flow Rate FiO2 01/14/19 08:17 Room Air 01/14/19 08:00 97.2 91 18 156/83 (107) 01/14/19 06:47 97.1 96 17 139/75 (96) 95 01/14/19 04:00 97.1 96 17 139/75 (96) 95 01/14/19 00:00 98.5 93 18 138/77 (97) 93 01/13/19 21:06 99 Nasal Cannula 2.0 28 01/13/19 21:06 98 18 96 Nasal Cannula 2.0 28 01/13/19 21:00 Room Air 2.0 01/13/19 17:34 92 135/71 01/13/19 16:00 98.4 92 19 135/71 (92) 96 01/13/19 15:44 98.7 01/13/19 13:04 154/82 01/13/19 12:00 98.7 94 18 154/82 (106) 97 Intake and Output 01/13/19 01/14/19 19:00 07:00 Intake Total 2188 ml 1866 ml Output Total 2010 ml 2465 ml Balance 178 ml -599 ml IV Total 2188 ml 1866 ml Output Urine Total 1200 ml 1275 ml Drainage Total 15 ml 10 ml Other 795 ml 1180 ml Laboratory Tests 01/14/19 05:15: White Blood Count 8.2, Red Blood Count 3.24L, Hemoglobin 9.8L, Hematocrit 29.8L , Mean Corpuscular Volume 92, Mean Corpuscular Hemoglobin 30.2, Mean Corpuscular Hemoglobin Concent 32.9, Red Cell Distribution Width 13.1, Platelet Count 541H, Mean Platelet Volume 6.2L, Neutrophils (%) (Auto) 69.9, Lymphocytes (%) (Auto) 13.3L, Monocytes (%) (Auto) 6.2, Eosinophils (%) (Auto) 9.7H, Basophils (%) (Auto) 0.8, Sodium Level 136, Potassium Level 4.6, Chloride Level 104, Carbon Dioxide Level 24, Anion Gap 8, Blood Urea Nitrogen 31H, Creatinine 1.2, Estimat Glomerular Filtration Rate 44.8, Glucose Level 130H, Calcium Level 9.5, Total Bilirubin 0.2, Aspartate Amino Transf (AST/SGOT) 36, Alanine Aminotransferase (ALT/SGPT) 44, Alkaline Phosphatase 357H, Total Protein 6.9, Albumin 1.9L, Globulin 5.0, Albumin/Globulin Ratio 0.4L Height (Feet): 5 Height (Inches): 3.00 Weight (Pounds): 135 General Appearance: alert EENT: normal ENT inspection Neck: supple Cardiovascular: normal rate Respiratory/Chest: decreased breath sounds Abdomen: soft, distended, tender Extremities: non-tender Max Dozier MD Jan 14, 2019 09:07
--- NOTE | 2019-01-14 11:06 | NUR ---
NURSE NOTES: gt tube connected to drainage bag, oob ambulated out by the door as tolerated then up in chair. call light on reach.
[2019-01-14] MEDS ORDERED: NS 250 ML IVPB ONE (13:15)
--- NOTE | 2019-01-14 13:40 | NUR ---
NURSE NOTES: GT CONNECTED TO DRAINAGE BAG. BINDER ON. OOB AMBULATED OUT IN THE BAKER WITH P.T TOLERATED THEN UP IN CHAIR.
--- NOTE | 2019-01-14 14:24 | NUR ---
NURSE NOTES: ASSISTED BACK TO BED. GT RESUMED TO MEDIUM INTERMITTENT SUCTION.
--- NOTE | 2019-01-14 16:01 | NUR ---
*-*INSURANCE *-* UPDATED CLINICALS AND REVIEW HAVE BEEN FAXED TO: [facility]#[phone]
--- NOTE | 2019-01-14 16:11 | Cardiology Progress Note ---
Assessment/Plan Status Narrative 1. Malfunctioning Kock pouch continent ileostomy. 2. History of ulcerative colitis. 3. History of primary sclerosing cholangitis. 4. Status post multiple abdominal operations. 4.1. Appendectomy in 1964. 4.2. Proctocolectomy and Kock pouch in 1978. 4.3. Total abdominal hysterectomy and bilateral salpingo-oophorectomy 1983 4.4. Cholecystectomy in 1985. 4.5. Orthotopic liver transplantation in 1999. 4.6. Revision of Kock pouch and repair of fistula in 2010. HTN- New onset- Controlled on Norvasc /Lisinopril and Metoprolol Tachycardia- improved with IV Fluids and Beta Blockers. Renal insuff- Most probably due volume depletion ( High GT output), possibly due to Toradal- Creat 1.2 -imroving Volume depletion- high GT output Assessment/Plan Metoprolol 25 mg QD Zestril 40 mg QD. Norvasc 5 mg BID Monitor BP NS Bolus 250 given IV Fluids at 100 cch Repeat labs in AM. Encouraged increased ambulation. Discussed with Dr. Sotomayor and with RN. Subjective Cardiovascular: Reports: no symptoms Respiratory: Reports: no symptoms Gastrointestinal/Abdominal: Reports: vomiting Genitourinary: Reports: no symptoms Subjective Still NPO Had N/V x1 Has been out of bed, ambulated. Pain controlled Creat 1.2 Objective Last 24 Hour Vital Signs Date Time Temp Pulse Resp B/P (MAP) Pulse Ox O2 Delivery O2 Flow Rate FiO2 01/14/19 12:00 97.3 99 20 152/98 (116) 98 01/14/19 08:58 91 156/83 01/14/19 08:58 156/83 01/14/19 08:57 156/83 01/14/19 08:57 91 156/83 01/14/19 08:17 Room Air 01/14/19 08:00 97.2 91 18 156/83 (107) 97 01/14/19 06:47 97.1 96 17 139/75 (96) 95 01/14/19 04:00 97.1 96 17 139/75 (96) 95 01/14/19 00:00 98.5 93 18 138/77 (97) 93 01/13/19 21:06 99 Nasal Cannula 2.0 28 01/13/19 21:06 98 18 96 Nasal Cannula 2.0 28 01/13/19 21:00 Room Air 2.0 01/13/19 17:34 92 135/71 General Appearance: no apparent distress, alert Cardiovascular: normal rate, regular rhythm, no gallop/murmur Respiratory/Chest: lungs clear, normal breath sounds Abdomen: soft, hypoactive bowel sounds, tender Extremities: non-tender, normal inspection, no calf tenderness, no swelling Intake and Output 01/13/19 01/14/19 19:00 07:00 Intake Total 2188 ml 1866 ml Output Total 2010 ml 2465 ml Balance 178 ml -599 ml IV Total 2188 ml 1866 ml Output Urine Total 1200 ml 1275 ml Drainage Total 15 ml 10 ml Other 795 ml 1180 ml Laboratory Tests Test 01/14/19 05:15 White Blood Count 8.2 K/UL (4.8-10.8) Red Blood Count 3.24 M/UL (4.20-5.40) L Hemoglobin 9.8 G/DL (12.0-16.0) L Hematocrit 29.8 % (37.0-47.0) L Mean Corpuscular Volume 92 FL (80-99) Mean Corpuscular Hemoglobin 30.2 PG (27.0-31.0) Mean Corpuscular Hemoglobin Concent 32.9 G/DL (32.0-36.0) Red Cell Distribution Width 13.1 % (11.6-14.8) Platelet Count 541 K/UL (150-450) H Mean Platelet Volume 6.2 FL (6.5-10.1) L Neutrophils (%) (Auto) 69.9 % (45.0-75.0) Lymphocytes (%) (Auto) 13.3 % (20.0-45.0) L Monocytes (%) (Auto) 6.2 % (1.0-10.0) Eosinophils (%) (Auto) 9.7 % (0.0-3.0) H Basophils (%) (Auto) 0.8 % (0.0-2.0) Sodium Level 136 MMOL/L (136-145) Potassium Level 4.6 MMOL/L (3.5-5.1) Chloride Level 104 MMOL/L (98-107) Carbon Dioxide Level 24 MMOL/L (21-32) Anion Gap 8 mmol/L (5-15) Blood Urea Nitrogen 31 mg/dL (7-18) H Creatinine 1.2 MG/DL (0.55-1.30) Estimat Glomerular Filtration Rate 44.8 mL/min (>60) Glucose Level 130 MG/DL (74-106) H Calcium Level 9.5 MG/DL (8.5-10.1) Total Bilirubin 0.2 MG/DL (0.2-1.0) Aspartate Amino Transf (AST/SGOT) 36 U/L (15-37) Alanine Aminotransferase (ALT/SGPT) 44 U/L (12-78) Alkaline Phosphatase 357 U/L (46-116) H Total Protein 6.9 G/DL (6.4-8.2) Albumin 1.9 G/DL (3.4-5.0) L Globulin 5.0 g/dL Albumin/Globulin Ratio 0.4 (1.0-2.7) L Micha Ziegler MD Jan 14, 2019 16:11
--- NOTE | 2019-01-14 16:44 | NUR ---
CASE MANAGEMENT:REVIEW 01/14/19 SI: POD #27...S/P RESECTION OF FAILED KOCJ POUCH POD#10...EXPL LAP W/SMALL BOWEL RESECTION AND RELOCATION OF ILEOSTOMY POD #7...S/P REPAIR OF STAPLE LINE DEHISCENCE POD #5...S/P REMOVE WOUND VAC. REPAIR BOWEL LEAK.ABDOMINAL WALL CLOSURE 97.0 92 18 140/80 99% ON RA H/H-9.8/29.8 IS: TPN/IL @ 74/HR IV MICAFUNGIN Q24 IV MEROPENEM Q12 CELLCEPT PO Q12 PROGRAF PO QHS LIDOCAINE PATCH NORVASC PO BID IV SYNTHROID QD LISINOPRIL PO QD TOPROL XL NG QD : MED/SURG STATUS 3 EAST PLAN: ILEUS ~ CONTINUE NPO
--- NOTE | 2019-01-14 16:45 | NUR ---
NURSE NOTES: AMBULATED OUT IN THE [place] WITH ASSIST. TOLERATED.
--- NOTE | 2019-01-14 17:02 | NUR ---
NURSE NOTES: CO FEELING HOT. TEMP RECHECKED 98.9. ENCOURAGED TO USE INCENTIVE SPIROMETER. ALSO C/O FREQUENT FEELING TO URINATE AND BURNING.FROM THE CATHETER. DR Onur PRIEST CALLED LEFT MESSAGE TO RETURN CALL.
[2019-01-14] MEDS ORDERED: NS 275ml ONE ×2 (18:18→18:22)
[2019-01-14] MEDS ORDERED: NS Irrig 1000ml ONE ×2 (18:18→18:22)
[2019-01-14] MEDS ORDERED: Tubing IV Secondary IV ONE ×2 (18:18→18:22)
[2019-01-14] MEDS: Lidocaine HCl 2% Jelly 6ml Tube TOPIC PRN (18:25)
--- NOTE | 2019-01-14 19:00 | NUR ---
NURSE NOTES: resting in bed. in no acute distress.
[2019-01-14 19:02] LABS: APPEARANCE,URINE CLEAR; BILIRUBIN, URINE NEGATIVE (NEGATIVE); COLOR,URINE PALE YELLOW; GLUCOSE, URINE (UA) NEGATIVE (NEGATIVE); KETONES,URINE NEGATIVE (NEGATIVE); LEUKOCYTE ESTERASE ,URINE 2+ (NEGATIVE); NITRITE,URINE NEGATIVE (NEGATIVE); PH,URINE 7 (4.5-8.0); PROTEIN,URINE 2+ (NEGATIVE); UROBILINOGEN,URINE NORMAL MG/DL (0.0-1.0)
--- NOTE | 2019-01-14 19:19 | NUR ---
HAND-OFF: Report given to Brooklyn OLIVAREZ RN.
--- NOTE | 2019-01-14 19:20 | NUR ---
NURSE NOTES: Received report from Edda Sandoval RN. Rounds done. Patient alert, oriented. Bed in low position, locked, side rails up x2, call light within reach. Will continue to monitor.
[2019-01-14] MEDS: Dyna-Hex 2% Top Sol 2oz TOPIC SCH (20:22)
[2019-01-14] MEDS: Fat Emulsion Iv 20% 216 ML in Tpn 1,560 ML IV SCH (20:23)
--- NOTE | 2019-01-14 21:00 | NUR ---
NURSE NOTES: Patient alert, oriented. NPO with ice chips, sips for medications. GT to medium intermittent suction. Abdominal dressing intact and dry. Pickett catheter draining clear yellow urine. Patient alert, oriented. States pain 07/30, refused pain medication for now. MARILY PICC intact and patent, infusing TPN at 74 cc/hr. R internal jugular triple lumen line, all flushed and patent, infusing IVF at 100 cc/hr. Addendum: 01/15/19 at 0653 by Becky Raines RN HAROLDO patent, compressed, clear serous fluid.
[2019-01-14] MEDS: TraZODone HCl 25 mg tablet ORAL PRN (21:39)
--- NOTE | 2019-01-14 22:50 | NUR ---
Had 120 cc emesis, yellow fluid, noticed pieces of PO pills but unable to determine which pills. Given Zofran IV as ordered with good relief. Will continue to monitor.
[2019-01-15] VITALS: BP 128/70
[2019-01-15] MEDS: NovoLOG Insulin Flexpen SUBQ SCH ×4 (00:02→18:03)
[2019-01-15] MEDS: fentaNYL 100 mcg/2 mL SUBQ PRN (00:03)
--- NOTE | 2019-01-15 02:35 | NUR ---
NURSE NOTES: c/o nausea, no vomiting at this time, given Compazine with very good relief. States Compazine gives her better relief from nausea than Zofran.
[2019-01-15] MEDS: D5 1/2NS w/KCl 40meq 1000ml 1,000 ML IV SCH ×3 (03:00→21:33)
[2019-01-15 04:00] VITALS: BP 135/76
--- NOTE | 2019-01-15 06:00 | NUR ---
NURSE NOTES: 12 hour output: morales: 1300 cc ileo: 30 cc emesis: 120 cc GT: 1275 - 80 (flushes)= 1195 cc HAROLDO: 10 cc
[2019-01-15 06:36] LABS: BASOPHILS % (AUTO) 0.7 % (0.0-2.0); EOSINOPHILS % (AUTO) 9.5 % (0.0-3.0); HEMATOCRIT 30.9 % (37.0-47.0); HEMOGLOBIN 10.2 G/DL (12.0-16.0); LYMPHOCYTES % (AUTO) 11.1 % (20.0-45.0); MEAN CORPUSCULAR VOLUME 91 FL (80-99); MONOCYTES % (AUTO) 4.2 % (1.0-10.0); NEUTROPHILS % (AUTO) 74.5 % (45.0-75.0); PLATELET COUNT 576 K/UL (150-450); RED BLOOD COUNT 3.38 M/UL (4.20-5.40); RED CELL DISTRIBUTION WIDTH 13.4 % (11.6-14.8); WHITE BLOOD COUNT 9.6 K/UL (4.8-10.8)
--- NOTE | 2019-01-15 07:16 | NUR ---
HAND-OFF: Report given to Milady Sandoval RN.
--- NOTE | 2019-01-15 07:25 | NUR ---
NURSE NOTES: rey. pain scale 2/10. on acute distress.
[2019-01-15 07:35] LABS: ALANINE AMINOTRANSFERASE 42 U/L (12-78); ALBUMIN 1.9 G/DL (3.4-5.0); ALBUMIN/GLOBULIN RATIO 0.4 (1.0-2.7); ALKALINE PHOSPHATASE 355 U/L (46-116); ANION GAP 11 mmol/L (5-15); ASPARTATE AMINO TRANSFERASE 32 U/L (15-37); BILIRUBIN,TOTAL 0.2 MG/DL (0.2-1.0); BLOOD UREA NITROGEN 28 mg/dL (7-18); CALCIUM 9.6 MG/DL (8.5-10.1); CARBON DIOXIDE 21 MMOL/L (21-32); CHLORIDE 105 MMOL/L (98-107); CREATININE 1.1 MG/DL (0.55-1.30); PHOSPHORUS 2.8 MG/DL (2.5-4.9); POTASSIUM 4.4 MMOL/L (3.5-5.1); SODIUM 137 MMOL/L (136-145)
[2019-01-15 08:00] VITALS: BP 152/81
[2019-01-15] MEDS: Mycophenolate 250mg cap ORAL SCH ×2 (08:41→21:30)
[2019-01-15] MEDS: Lisinopril 20mg tab ORAL SCH (08:42)
[2019-01-15] MEDS: Metoprolol Succinate XL 50mg tab ORAL SCH (08:43)
[2019-01-15] MEDS: Pantoprazole Inj IVP SCH (08:43)
--- NOTE | 2019-01-15 08:56 | General Progress Note ---
Progress Note Progress Note AVSS Still with occasional nausea and emesis Still with large volume gastrostomy output (2000cc). Pain is much decreased - will decrease Fentanyl patch to 25mcg Abdomen soft, incisions clean Urine 2450 Gastrostomy 1990 Ileostomy 50 HAROLDO 15 WBC 9600 Hgb 10.2 Platelets up 576,000 BUN down 28 Cr down 1.1 Mg 1.6 Albumin 1.9 Imp. Ileus with high volume gastrostomy output Plan: continue NPO and TPN and IV fluids - now getting 174cc/hour maintain Pickett - will get urine C&S sent today Mg infusion d/c right neck central line - maintain left arm PICC decrease Fentanyl patch dosing Lars Sotomayor MD Jan 15, 2019 08:56
[2019-01-15] MEDS: fentaNYL Destruction MISC SCH (09:18)
--- NOTE | 2019-01-15 09:30 | NUR ---
NURSE NOTES: ambulated out in the [place] wit p.t. tolerated.abdominal binder on.
--- NOTE | 2019-01-15 11:06 | General Progress Note ---
Assessment/Plan Status: progressing Assessment/Plan: fu LFTs>>> stable now on TPN cellcept 750 BID prograft 3 gm per day monitor for Lyte protonix will fu labs fu surg recs abx per ID GT to suction cont compazine and Zofran no reglan patient is allergic to it Subjective ROS Limited/Unobtainable: Yes Allergies: Coded Allergies: CODEINE (Verified Allergy, Severe, 12/17/18) Face contractions HYDROMORPHONE (Verified Allergy, Severe, Itching, 12/17/18) Itching whole body METOCLOPRAMIDE (Verified Allergy, Severe, 12/17/18) Face contractions MORPHINE (Verified Allergy, Severe, Shortness of Breath, 12/17/18) SULFA (SULFONAMIDE ANTIBIOTICS) (Verified Allergy, Severe, 12/17/18) Face contractions Subjective abd pain sleeping Objective Last 24 Hour Vital Signs Date Time Temp Pulse Resp B/P (MAP) Pulse Ox O2 Delivery O2 Flow Rate FiO2 01/15/19 09:47 98.4 01/15/19 09:27 Room Air 01/15/19 08:59 153/81 01/15/19 08:47 96 153/81 01/15/19 08:43 96 153/81 01/15/19 08:42 153/81 01/15/19 08:00 97.6 96 20 152/81 (104) 96 01/15/19 04:00 98.4 96 19 135/76 (95) 96 01/15/19 00:00 98.5 99 19 128/70 (89) 96 01/14/19 21:00 Room Air 01/14/19 20:00 98.7 97 18 131/81 (98) 99 01/14/19 18:24 92 140/80 01/14/19 17:55 98.9 01/14/19 17:01 98.9 01/14/19 16:00 97.0 92 18 140/80 (100) 99 01/14/19 12:00 97.3 99 20 152/98 (116) 98 Intake and Output 01/14/19 01/15/19 19:00 07:00 Intake Total 2013 ml 2088 ml Output Total 1050 ml 2735 ml Balance 964 ml -647 ml IV Total 2013 ml 2088 ml Output Urine Total 800 ml 1300 ml Emesis 30 ml 120 ml Drainage Total 5 ml 10 ml Other 215 ml 1305 ml Laboratory Tests 01/14/19 18:00: Urine Color Pale yellow, Urine Appearance Clear, Urine pH 7, Urine Specific Hitchcock 1.010, Urine Protein 2+H, Urine Glucose (UA) Negative, Urine Ketones Negative, Urine Blood 3+H, Urine Nitrite Negative, Urine Bilirubin Negative, Urine Urobilinogen Normal, Urine Leukocyte Esterase 2+H, Urine RBC 5-10H, Urine WBC 5-10H, Urine Squamous Epithelial Cells Occasional, Urine Bacteria Few 01/15/19 05:40: White Blood Count 9.6, Red Blood Count 3.38L, Hemoglobin 10.2L, Hematocrit 30.9L , Mean Corpuscular Volume 91, Mean Corpuscular Hemoglobin 30.2, Mean Corpuscular Hemoglobin Concent 33.0, Red Cell Distribution Width 13.4, Platelet Count 576H, Mean Platelet Volume 6.1L, Neutrophils (%) (Auto) 74.5, Lymphocytes (%) (Auto) 11.1L, Monocytes (%) (Auto) 4.2, Eosinophils (%) (Auto) 9.5H, Basophils (%) (Auto) 0.7, Sodium Level 137, Potassium Level 4.4, Chloride Level 105, Carbon Dioxide Level 21, Anion Gap 11, Blood Urea Nitrogen 28H, Creatinine 1.1, Estimat Glomerular Filtration Rate 49.6, Glucose Level 166H, Calcium Level 9.6, Phosphorus Level 2.8, Magnesium Level 1.6L, Total Bilirubin 0.2, Aspartate Amino Transf (AST/SGOT) 32, Alanine Aminotransferase (ALT/SGPT) 42, Alkaline Phosphatase 355H, Total Protein 6.9, Albumin 1.9L, Globulin 5.0, Albumin/ Globulin Ratio 0.4L Height (Feet): 5 Height (Inches): 3.00 Weight (Pounds): 135 General Appearance: lethargic EENT: normal ENT inspection Neck: supple Cardiovascular: normal rate Respiratory/Chest: decreased breath sounds Abdomen: soft, distended, tender, other - GT in place Extremities: non-tender Max Dozier MD Jan 15, 2019 11:06
--- NOTE | 2019-01-15 11:13 | NUR ---
CASE MANAGEMENT:REVIEW 01/15/19 SI: POD #28...S/P RESECTION OF FAILED KOCJ POUCH POD#11...EXPL LAP W/SMALL BOWEL RESECTION AND RELOCATION OF ILEOSTOMY POD #8...S/P REPAIR OF STAPLE LINE DEHISCENCE POD #6...S/P REMOVE WOUND VAC. REPAIR BOWEL LEAK.ABDOMINAL WALL CLOSURE 98.4 96 20 153/81 96% ON RA IS: IV MAG SULFATE Q1HRS X4TPN/IL @ 74/HR IV MICAFUNGIN Q24 IV MEROPENEM Q12 CELLCEPT PO Q12 PROGRAF PO QHS LIDOCAINE PATCH NORVASC PO BID IV SYNTHROID QD LISINOPRIL PO QD TOPROL XL NG QD : MED/SURG STATUS 3 EAST PLAN: ILEUS ~ CONTINUE NPO URINE CULTURE
[2019-01-15 12:00] VITALS: BP 137/86
--- NOTE | 2019-01-15 12:30 | NUR ---
NURSE NOTES: rt internal jugular iv access dc'd as ordered. pressure dressing applied. no bleeding noted.
--- NOTE | 2019-01-15 13:27 | NUR ---
NURSE NOTES: [facility] NURSE SEEN PT. CHANGED ILEOSTOMY BAG AND IN PLACE.
[2019-01-15] MEDS ORDERED: NS 275ml ONE (14:28)
[2019-01-15] MEDS ORDERED: Tubing IV Secondary IV ONE (14:28)
--- NOTE | 2019-01-15 14:30 | NUR ---
NURSE NOTES: ambulated out in the [place] with assist tolerated.
[2019-01-15] MEDS: Lidocaine HCl 2% Jelly 6ml Tube TOPIC PRN ×2 (14:43→18:38)
--- NOTE | 2019-01-15 14:50 | NUR ---
RD ASSESSMENT & RECOMMENDATIONS SEE CARE ACTIVITY FOR COMPLETE ASSESSMENT DAILY ESTIMATED NEEDS: Needs based on Surgery 61kg 25-30 kcals/kg 2959-3441 total kcals 1-2 g protein/kg 61-122 g total protein 25-30 mL/kg 8064-4710 total fluid mLs NUTRITION DIAGNOSIS: Altered GI fxn r/t h/o UC and malfunctioning kock pouch as evidenced by pt is s/p kock pouch takedown w/ creation of Yajaira ileo, now s/p ex lap, segmental small bowel resections and relocation of ileostomy, back to NPO, remains on TPN. CURRENT DIET:NPO, on TPN PO DIET RECOMMENDATIONS: Diet per MD PARENTERAL NUTRITION RECOMMENDATIONS: D/AA Rate: 65 IL Rate: 9 Total Rate: 74 Volume: 1776 % Dextrose: 18 % AA: 5.5 Energy (kcals/kg): 1730 Protein (g/kg protein): 86 Nonprotein KCALS: 1386 GIR (mg CHO/kg/min): 3.2 % Fat KCALS: 25 NCP: N Ratio: 101:1 TPN Comment: - Maintain current TPN: D18% + AA 5.5% @65ml/hr + 20% IL @9ml/hr - TPN at goal meets 100% est kcal/prot needs (28 kcal/kg and 1.4g prot/kg) ADDITIONAL RECOMMENDATIONS: 1) Obtain a standing weight as pt is able to ambulate in halls 2) Monitor lytes, BG , LFTs daily w/ TPN Replete lytes as needed (low mag) 3) Consider DC D5 from IVF for improved BG control 4) Diet per MD . .
--- NOTE | 2019-01-15 15:39 | NUR ---
*-*INSURANCE *-* UPDATED CLINICALS AND REVIEW HAVE BEEN FAXED TO: [facility]#[phone]
[2019-01-15 16:00] VITALS: BP 136/70
--- NOTE | 2019-01-15 19:00 | NUR ---
NURSE NOTES: resting. in no apparent acute distress.
--- NOTE | 2019-01-15 19:11 | NUR ---
HAND-OFF: Report given to taina mata rn.
--- NOTE | 2019-01-15 19:12 | NUR ---
NURSE NOTES: Received report from Milady Sandoval RN.
--- NOTE | 2019-01-15 19:30 | NUR ---
NURSE NOTES: Patient alert, oriented. NPO with ice chips, sips for medications. GT to medium intermittent suction. Abdominal dressing intact and dry. Pickett catheter draining clear yellow urine. MARILY PICC intact and patent, infusing TPN at 74 cc/hr and IVF at 100 cc/hr. HAROLDO draining serous fluid. Minimal dark green output in ileo external appliance. Bed in low position, locked, side rails up x2, call light within reach. Will continue to monitor
[2019-01-15] MEDS: Dyna-Hex 2% Top Sol 2oz TOPIC SCH (19:52)
[2019-01-15 20:00] VITALS: BP 140/74
[2019-01-15] MEDS: Fat Emulsion Iv 20% 216 ML in Tpn 1,560 ML IV SCH (20:11)
--- NOTE | 2019-01-15 20:23 | Infectious Diseases Prog Note ---
Assessment/Plan Assessment/Plan ASSESSMENT AND PLAN: 1. leukocytosis, fevers, ? sepsis, possible intra-abdominal infection/early sbo , s/p exploratory laparotomy and small bowel segmental resection, fungemia risk with hx of tpn and abx, + picc line s/p surgery for post-operative leak - 01/07/19, bfc with jeff albicans ? uti, + ua, + symptoms - meropenem and micafungin - day # 8 post-op (01/07/19) - f/u on urine culture for ? uti - cultures noted, bfc - jeff, blood cultures negative - monitor labs, leukocytosis and fevers resolved 2. 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 3. Liver transplantation. 4. Sclerosing cholangitis. 5. Ulcerative colitis. 6. The patient is anemic. 7. History of cholecystectomy, appendectomy, hysterectomy, and proctocolectomy. 8. History of multiple abdominal operations. 9. Allergies to codeine, hydromorphone, metoclopramide, morphine, and sulfa. 10. Family doctor is Noncontributory. 11. Social history is negative. 12. MAR was noted. 13. Case discussed with RN. 14. Case discussed with the patient. 15. Continue treatment per Dr. Sotomayor and consultants. Subjective Constitutional: Denies: fever HEENT: Denies: congestion Respiratory: Denies: shortness of breath Gastrointestinal/Abdominal: Reports: other - no abdomnal pain ; Denies: nausea , vomiting Genitourinary: Reports: other - + morales Neurologic: Denies: headache Psychiatric: Denies: depression Skin: Denies: rash Hematologic: Denies: bleeding Musculoskeletal: Denies: pain Allergies: Coded Allergies: CODEINE (Verified Allergy, Severe, 12/17/18) Face contractions HYDROMORPHONE (Verified Allergy, Severe, Itching, 12/17/18) Itching whole body METOCLOPRAMIDE (Verified Allergy, Severe, 12/17/18) Face contractions MORPHINE (Verified Allergy, Severe, Shortness of Breath, 12/17/18) SULFA (SULFONAMIDE ANTIBIOTICS) (Verified Allergy, Severe, 12/17/18) Face contractions Objective Vital Signs Last 24 Hour Vital Signs Date Time Temp Pulse Resp B/P (MAP) Pulse Ox O2 Delivery O2 Flow Rate FiO2 01/15/19 17:58 89 136/70 01/15/19 16:00 98.1 89 20 136/70 (92) 96 01/15/19 12:00 97.7 90 18 137/86 (103) 95 01/15/19 09:47 98.4 01/15/19 09:27 Room Air 01/15/19 08:59 153/81 01/15/19 08:47 96 153/81 01/15/19 08:43 96 153/81 01/15/19 08:42 153/81 01/15/19 08:00 97.6 96 20 152/81 (104) 96 01/15/19 04:00 98.4 96 19 135/76 (95) 96 01/15/19 00:00 98.5 99 19 128/70 (89) 96 01/14/19 21:00 Room Air Height (Feet): 5 Height (Inches): 3.00 Weight (Pounds): 135 General Appearance: no acute distress HEENT: normocephalic, atraumatic, anicteric, mucous membranes moist Respiratory/Chest: lungs clear, normal breath sounds, no accessory muscle use, respiratory distress Cardiovascular: normal rate, regular rhythm, no gallop/murmur, no JVD Abdomen: normal bowel sounds, soft, non tender, no organomegaly, non distended Genitourinary: other - + morales - urine clear Extremities: no cyanosis Skin: no rash 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 Good bowel and bag opacification with no evidence of bowel obstruction. Unusual, markedly distended unopacified loop of bowel in the pelvis. Although unopacified, this does not appear to be an abscess as there is a wall and other characteristics more in keeping with bowel. Would consider a large diverticulum or possibly remnant of the previous Kock pouch or part of the small bowel leading to the old pouch as those segments are sometimes quite distended. Status post liver transplant. Status post cholecystectomy. Mild basal atelectasis. Chest x-ray - no pna, report noted CT abdomen/pelvis - 12/30/18 - Impression: Postsurgical changes, as described Unusual tubular structure filled mostly with gas but also some fluid communicating with the small bowel at the site of a right lower quadrant enteroenterostomy. Uncertain as to whether this represents an unusual large diverticulum, a true extraluminal gas collection, or a portion of an old continent ileostomy pouch. This is also previously described Dilated proximal small bowel proximal to the enteroenterostomy with slow forward propulsion of contents. Partial small bowel obstruction not completely excludable although unlikely given evidence of forward propulsion of contrast and filling of the ileostomy on prior 12/26/2018 exam; findings most likely functional in nature. Correlate with clinical findings Small anterior pelvic and deep pelvic fluid pockets, most likely represent retained postoperative fluid collections. Abscess as etiology of any of these not completely excludable; correlation with clinical findings recommended Postsurgical changes of the liver status post transplantation Punctate nonobstructing bilateral intrarenal calculi Bilateral basilar pulmonary parenchymal atelectasis and/or scarring Chest x-ray - 01/07/19 - Images previously reviewed in person with Dr. Sotomayor Interval placement of a right transjugular central line, catheter tip in the region of the high right atrium. Left arm PICC line remains in place with the catheter tip at the cavoatrial junction. No evidence of pneumothorax. No definite focal airspace consolidation or pleural effusion. Surgical clips noted projecting over the upper abdomen. Microbiology Date/Time Source Procedure Growth Status 01/07/19 04:15 Blood Blood Culture - Final NO GROWTH AFTER 5 DAYS Complete 01/08/19 16:00 Stool Clostridium difficile Toxin Assay - Final Complete 01/06/19 12:55 Indwelling Cath Urine Culture - Final NO GROWTH AFTER 48 HOURS Complete 01/06/19 22:30 Abdominal Fluid Gram Stain - Final Complete 01/06/19 22:30 Body Fluid Culture - Final Jeff Albicans Complete Laboratory Tests Test 01/15/19 05:40 White Blood Count 9.6 K/UL (4.8-10.8) Red Blood Count 3.38 M/UL (4.20-5.40) L Hemoglobin 10.2 G/DL (12.0-16.0) L Hematocrit 30.9 % (37.0-47.0) L Mean Corpuscular Volume 91 FL (80-99) Mean Corpuscular Hemoglobin 30.2 PG (27.0-31.0) Mean Corpuscular Hemoglobin Concent 33.0 G/DL (32.0-36.0) Red Cell Distribution Width 13.4 % (11.6-14.8) Platelet Count 576 K/UL (150-450) H Mean Platelet Volume 6.1 FL (6.5-10.1) L Neutrophils (%) (Auto) 74.5 % (45.0-75.0) Lymphocytes (%) (Auto) 11.1 % (20.0-45.0) L Monocytes (%) (Auto) 4.2 % (1.0-10.0) Eosinophils (%) (Auto) 9.5 % (0.0-3.0) H Basophils (%) (Auto) 0.7 % (0.0-2.0) Sodium Level 137 MMOL/L (136-145) Potassium Level 4.4 MMOL/L (3.5-5.1) Chloride Level 105 MMOL/L (98-107) Carbon Dioxide Level 21 MMOL/L (21-32) Anion Gap 11 mmol/L (5-15) Blood Urea Nitrogen 28 mg/dL (7-18) H Creatinine 1.1 MG/DL (0.55-1.30) Estimat Glomerular Filtration Rate 49.6 mL/min (>60) Glucose Level 166 MG/DL (74-106) H Calcium Level 9.6 MG/DL (8.5-10.1) Phosphorus Level 2.8 MG/DL (2.5-4.9) Magnesium Level 1.6 MG/DL (1.8-2.4) L Total Bilirubin 0.2 MG/DL (0.2-1.0) Aspartate Amino Transf (AST/SGOT) 32 U/L (15-37) Alanine Aminotransferase (ALT/SGPT) 42 U/L (12-78) Alkaline Phosphatase 355 U/L (46-116) H Total Protein 6.9 G/DL (6.4-8.2) Albumin 1.9 G/DL (3.4-5.0) L Globulin 5.0 g/dL Albumin/Globulin Ratio 0.4 (1.0-2.7) L Current Medications Medications (Trade) Dose Ordered Sig/Kajal Route PRN Reason Start Time Stop Time Status Last Admin Dose Admin Acetaminophen (Tylenol) 650 mg Q4H PRN ORAL Mild Pain/Temp > 100.2 01/12/19 13:30 01/25/19 13:29 Acetaminophen (Tylenol) 650 mg Q6H PRN ORAL headache 01/14/19 09:00 02/13/19 08:59 Al Hydroxide/Mg Hydroxide (Mylanta) 30 ml Q6H PRN ORAL dyspepsia 01/12/19 14:00 01/27/19 13:59 01/15/19 16:28 Amlodipine Besylate (Norvasc) 5 mg BID ORAL 01/12/19 18:00 02/02/19 08:59 01/15/19 17:58 Chlorhexidine Gluconate (Yulia-Hex 2%) 1 applic DAILY@2000 TOPIC 01/12/19 20:00 01/16/19 19:59 01/15/19 19:52 Clonidine HCl (Catapres Tab) 0.1 mg Q6H PRN SL SBP>150 mmHg 01/12/19 13:30 01/21/19 13:29 01/15/19 08:59 Dextrose 1,000 ml @ 0 mls/hr Q24H PRN IV PN interrupted or unavailable 01/12/19 20:00 01/19/19 19:59 Dextrose (Dextrose 50%) 25 ml Q30M PRN IV Hypoglycemia 01/12/19 13:45 01/21/19 12:44 Dextrose (Dextrose 50%) 50 ml Q30M PRN IV Hypoglycemia 01/12/19 13:45 01/21/19 12:44 Dextrose/ Electrolytes 1,000 ml @ 100 mls/hr Q10H IV 01/12/19 13:30 02/11/19 09:29 01/15/19 12:25 Diphenhydramine HCl (Benadryl) 50 mg Q4H PRN ORAL Itching 01/12/19 14:00 01/26/19 13:59 Fat Emulsion Intravenous 216 ml/Amino Acids/ Electrolytes/ Dextrose 1,776 ml @ 74 mls/hr Q24H IV 01/12/19 20:00 01/29/19 19:59 01/15/19 20:11 Fentanyl (Duragesic) 1 patch Q72H TDERMAL 01/15/19 09:00 01/22/19 08:59 01/15/19 09:17 Fentanyl Citrate (Sublimaze 100 mcg/2 mL) 8 mcg Q3H PRN SUBQ Breakthrough Pain 01/13/19 18:15 01/20/19 18:14 01/15/19 00:03 Insulin Aspart (NovoLOG) Q6HR SUBQ 01/12/19 18:00 02/11/19 17:59 01/15/19 18:03 Levothyroxine Sodium (Synthroid) 100 mcg DAILY IV 01/13/19 09:00 02/04/19 08:59 01/15/19 08:43 Lidocaine HCl (Xylocaine Jelly 2%) 1 applic Q3H PRN TOPIC BURNING AROUND MEATUS 01/14/19 17:15 02/13/19 17:14 01/15/19 18:38 Lisinopril (Prinivil) 40 mg DAILY ORAL 01/13/19 09:00 01/30/19 08:59 01/15/19 08:42 Meropenem 1 gm/ Sodium Chloride 100 ml @ 200 mls/hr Q12HR@0600,1800 IVPB 01/13/19 18:00 01/18/19 17:59 01/15/19 17:48 Metoprolol Succinate (Toprol XL) 50 mg DAILY ORAL 01/13/19 09:00 01/23/19 08:59 01/15/19 08:43 Micafungin Sodium 100 mg/Sodium Chloride 110 ml @ 110 mls/hr Q24H IVPB 01/12/19 20:00 01/18/19 19:59 01/14/19 20:25 Miscellaneous Medication (fentaNYL Destruction) 1 ea Q72H MISC 01/15/19 08:59 02/11/19 08:58 01/15/19 09:18 Mycophenolate Mofetil (Cellcept) 750 mg Q12HR ORAL 01/12/19 21:00 01/24/19 08:59 01/15/19 08:41 Naloxone HCl (Narcan) 0.1 mg PRN IV Sedation scale 3 or 4 01/12/19 13:30 02/03/19 13:44 Ondansetron HCl (Zofran) 4 mg Q6H PRN IVP Nausea & Vomiting 01/12/19 16:00 01/20/19 15:59 01/15/19 07:48 Pantoprazole (Protonix) 40 mg DAILY IVP 01/13/19 09:00 01/25/19 08:59 01/15/19 08:43 Prochlorperazine (Compazine) 10 mg Q6H PRN IVP Nausea & Vomiting 01/12/19 14:00 01/19/19 19:59 01/15/19 02:43 Tacrolimus (Prograf) 1 mg DAILY ORAL 01/13/19 09:00 02/04/19 08:59 01/15/19 08:41 Tacrolimus (Prograf) 2 mg BEDTIME ORAL 01/14/19 21:00 01/18/19 20:59 01/14/19 21:26 Trazodone HCl (Desyrel) 25 mg HSPRN PRN ORAL INSOMNIA 01/12/19 20:00 02/03/19 19:59 01/14/19 21:39 Philly Shelby MD Jan 15, 2019 20:23
[2019-01-15] MEDS: Micafungin 100 MG in NS 110 ML IVPB SCH (21:32)
[2019-01-15] MEDS: TraZODone HCl 25 mg tablet ORAL PRN (23:59)
[2019-01-16] VITALS: BP 140/73
[2019-01-16] MEDS: NovoLOG Insulin Flexpen SUBQ SCH ×4 (00:15→18:12)
[2019-01-16 04:00] VITALS: BP 139/80
--- NOTE | 2019-01-16 06:00 | NUR ---
NURSE NOTES: Patient had 3 episodes of nausea relieved with IV medications, see eMAR. 12 hour output: Pickett: 875 cc Ileo: 10 cc GT: 1100 - 80 (flushes)= 1020 cc HAROLDO: 20 cc
[2019-01-16 07:10] LABS: ALANINE AMINOTRANSFERASE 41 U/L (12-78); ALBUMIN 1.9 G/DL (3.4-5.0); ALBUMIN/GLOBULIN RATIO 0.4 (1.0-2.7); ALKALINE PHOSPHATASE 358 U/L (46-116); ANION GAP 10 mmol/L (5-15); ASPARTATE AMINO TRANSFERASE 30 U/L (15-37); BILIRUBIN,TOTAL 0.2 MG/DL (0.2-1.0); BLOOD UREA NITROGEN 29 mg/dL (7-18); CALCIUM 9.8 MG/DL (8.5-10.1); CARBON DIOXIDE 22 MMOL/L (21-32); CHLORIDE 101 MMOL/L (98-107); CREATININE 1.2 MG/DL (0.55-1.30); POTASSIUM 4.6 MMOL/L (3.5-5.1); SODIUM 133 MMOL/L (136-145)
--- NOTE | 2019-01-16 07:15 | NUR ---
HAND-OFF: Report given to PATRICK Menon. Rounds done.
[2019-01-16 07:16] LABS: BASOPHILS % (AUTO) 0.9 % (0.0-2.0); EOSINOPHILS % (AUTO) 10.5 % (0.0-3.0); HEMATOCRIT 30.6 % (37.0-47.0); LYMPHOCYTES % (AUTO) 10.6 % (20.0-45.0); MEAN CORPUSCULAR VOLUME 91 FL (80-99); MONOCYTES % (AUTO) 4.3 % (1.0-10.0); NEUTROPHILS % (AUTO) 73.7 % (45.0-75.0); PLATELET COUNT 578 K/UL (150-450); RED BLOOD COUNT 3.35 M/UL (4.20-5.40); RED CELL DISTRIBUTION WIDTH 12.4 % (11.6-14.8); WHITE BLOOD COUNT 10.2 K/UL (4.8-10.8)
--- NOTE | 2019-01-16 07:30 | NUR ---
NURSE NOTES: Pt lying in bed w/bed in lowest position and call light within reach. Pt A&Ox4, VSS, and in no apparent distress. MARILY PICC line intact/asymptomatic w/IVF & TPN running; GT to mod/int suction; F/C patent/draining well; HAROLDO drain to bulb suction; and dressing stained but otherwise C/D/I. Will continue to monitor.
[2019-01-16 08:00] VITALS: BP 153/86
[2019-01-16] MEDS: D5 1/2NS w/KCl 40meq 1000ml 1,000 ML IV SCH ×2 (08:16→18:18)
[2019-01-16] MEDS: Metoprolol Succinate XL 50mg tab ORAL SCH (08:18)
[2019-01-16] MEDS: Mycophenolate 250mg cap ORAL SCH ×2 (08:18→20:13)
[2019-01-16] MEDS: Lisinopril 20mg tab ORAL SCH (08:19)
[2019-01-16] MEDS: Pantoprazole Inj IVP SCH (08:23)
[2019-01-16] MEDS ORDERED: NS 275ml ONE (09:21)
[2019-01-16] MEDS ORDERED: Tubing IV Secondary IV ONE (09:21)
[2019-01-16] MEDS ORDERED: NS Irrig 1000ml ONE (09:21)
--- NOTE | 2019-01-16 09:23 | General Progress Note ---
Assessment/Plan Status: progressing Assessment/Plan: fu LFTs>>> stable now on TPN cellcept 750 BID prograft 3 gm per day monitor for Lyte protonix will fu labs fu surg recs abx per ID GT to suction cont compazine and Zofran supportive care stable LFTS will fu Subjective ROS Limited/Unobtainable: Yes Allergies: Coded Allergies: CODEINE (Verified Allergy, Severe, 12/17/18) Face contractions HYDROMORPHONE (Verified Allergy, Severe, Itching, 12/17/18) Itching whole body METOCLOPRAMIDE (Verified Allergy, Severe, 12/17/18) Face contractions MORPHINE (Verified Allergy, Severe, Shortness of Breath, 12/17/18) SULFA (SULFONAMIDE ANTIBIOTICS) (Verified Allergy, Severe, 12/17/18) Face contractions Subjective vomited once about 250 cc Objective Last 24 Hour Vital Signs Date Time Temp Pulse Resp B/P (MAP) Pulse Ox O2 Delivery O2 Flow Rate FiO2 01/16/19 08:19 153/86 01/16/19 08:18 96 153/86 01/16/19 08:18 96 153/86 01/16/19 04:00 98.7 86 16 139/80 (99) 96 01/16/19 00:00 98.6 95 16 140/73 (95) 97 01/15/19 21:00 Room Air 01/15/19 20:00 98.8 95 16 140/74 (96) 96 01/15/19 17:58 89 136/70 01/15/19 16:00 98.1 89 20 136/70 (92) 96 01/15/19 12:00 97.7 90 18 137/86 (103) 95 01/15/19 09:47 98.4 01/15/19 09:27 Room Air Intake and Output 01/15/19 01/16/19 18:59 06:59 Intake Total 2588 ml 2088 ml Output Total 3365 ml 1925 ml Balance -777 ml 163 ml IV Total 2588 ml 2088 ml Output Urine Total 1900 ml 875 ml Stool Total 10 ml Drainage Total 10 ml 20 ml Other 1455 ml 1020 ml Laboratory Tests 01/16/19 04:50: White Blood Count 10.2, Red Blood Count 3.35L, Hemoglobin 10.0L, Hematocrit 30.6L, Mean Corpuscular Volume 91, Mean Corpuscular Hemoglobin 29.9, Mean Corpuscular Hemoglobin Concent 32.8, Red Cell Distribution Width 12.4, Platelet Count 578H, Mean Platelet Volume 6.3L, Neutrophils (%) (Auto) 73.7, Lymphocytes (%) (Auto) 10.6L, Monocytes (%) (Auto) 4.3, Eosinophils (%) (Auto) 10.5H, Basophils (%) (Auto) 0.9, Sodium Level 133L, Potassium Level 4.6, Chloride Level 101, Carbon Dioxide Level 22, Anion Gap 10, Blood Urea Nitrogen 29H, Creatinine 1.2, Estimat Glomerular Filtration Rate 44.8, Glucose Level 149H, Calcium Level 9.8, Phosphorus Level 3.2, Magnesium Level 2.3, Total Bilirubin 0.2, Aspartate Amino Transf (AST/SGOT) 30, Alanine Aminotransferase (ALT/SGPT) 41, Alkaline Phosphatase 358H, Total Protein 6.9, Albumin 1.9L, Globulin 5.0, Albumin/Globulin Ratio 0.4L Height (Feet): 5 Height (Inches): 3.00 Weight (Pounds): 135 General Appearance: alert EENT: normal ENT inspection Neck: supple Cardiovascular: normal rate Respiratory/Chest: decreased breath sounds Abdomen: hypoactive bowel sounds, distended, tender Extremities: non-tender aMx Dozier MD Jan 16, 2019 09:23
--- NOTE | 2019-01-16 10:15 | NUR ---
NURSE NOTES: Pt ambulated once around unit w/PT; pt tolerated well; changed surgical dressing earlier this AM. Will continue to monitor.
[2019-01-16 12:00] VITALS: BP 142/74
--- NOTE | 2019-01-16 13:07 | General Progress Note ---
Progress Note Progress Note AVSS Not needing breakthrough pain meds any longer. Still with 25mcg fentanyl patch. Ambulates in hallways Still with occasional emesis and high volume gastrostomy output Abdomen soft, healing incisions, HAROLDO serous Urine 2275 Gastrostomy 2465 Ileostomy 20 HAROLDO 30 WBC 10,200 Hgb 10 Platelets up 578,000 Na 133 Mg 2.3 Imp. High volume gastrostomy output - ? etiology Plan: gastrostomy catheter balloon partially deflated may need CT scan with oral contrast continue npo, TPN, Lars Choi MD Jan 16, 2019 13:07
--- NOTE | 2019-01-16 13:27 | Cardiology Progress Note ---
Assessment/Plan Status Narrative 1. Malfunctioning Kock pouch continent ileostomy. 2. History of ulcerative colitis. 3. History of primary sclerosing cholangitis. 4. Status post multiple abdominal operations. 4.1. Appendectomy in 1964. 4.2. Proctocolectomy and Kock pouch in 1978. 4.3. Total abdominal hysterectomy and bilateral salpingo-oophorectomy 1983 4.4. Cholecystectomy in 1985. 4.5. Orthotopic liver transplantation in 1999. 4.6. Revision of Kock pouch and repair of fistula in 2010. HTN- New onset- Controlled on Norvasc /Lisinopril and Metoprolol Tachycardia- improved with IV Fluids and Beta Blockers. Renal insuff- Most probably due volume depletion ( High GT output), possibly due to Toradal- Creat 1.2 -imroving Volume depletion- high GT output Assessment/Plan Metoprolol 25 mg QD Zestril 40 mg QD. Norvasc 5 mg BID Monitor BP NS Bolus 250 today IV Fluids at 100 cch Repeat labs in AM. Encouraged increased ambulation. Discussed with Dr. Sotomayor and with RN. Subjective Cardiovascular: Reports: no symptoms Respiratory: Reports: no symptoms Gastrointestinal/Abdominal: Reports: abdomen distended, vomiting Genitourinary: Reports: no symptoms Subjective Still NPO Had N/V x1 Has been out of bed, ambulated. Pain controlled Creat 1.2 Still on TPN High output from GT Objective Last 24 Hour Vital Signs Date Time Temp Pulse Resp B/P (MAP) Pulse Ox O2 Delivery O2 Flow Rate FiO2 01/16/19 09:00 Room Air 01/16/19 08:19 153/86 01/16/19 08:18 96 153/86 01/16/19 08:18 96 153/86 01/16/19 08:00 98.6 96 18 153/86 (108) 95 01/16/19 04:00 98.7 86 16 139/80 (99) 96 01/16/19 00:00 98.6 95 16 140/73 (95) 97 01/15/19 21:00 Room Air 01/15/19 20:00 98.8 95 16 140/74 (96) 96 01/15/19 17:58 89 136/70 01/15/19 16:00 98.1 89 20 136/70 (92) 96 General Appearance: no apparent distress, alert Neck: supple Cardiovascular: normal rate, regular rhythm, no gallop/murmur Respiratory/Chest: lungs clear, normal breath sounds Abdomen: absent bowel sounds Extremities: normal range of motion, non-tender, normal inspection, no calf tenderness, no swelling Intake and Output 01/15/19 01/16/19 19:00 07:00 Intake Total 2414 ml 2262 ml Output Total 3365 ml 1925 ml Balance -951 ml 337 ml IV Total 2414 ml 2262 ml Output Urine Total 1900 ml 875 ml Stool Total 10 ml Drainage Total 10 ml 20 ml Other 1455 ml 1020 ml Laboratory Tests Test 01/16/19 04:50 White Blood Count 10.2 K/UL (4.8-10.8) Red Blood Count 3.35 M/UL (4.20-5.40) L Hemoglobin 10.0 G/DL (12.0-16.0) L Hematocrit 30.6 % (37.0-47.0) L Mean Corpuscular Volume 91 FL (80-99) Mean Corpuscular Hemoglobin 29.9 PG (27.0-31.0) Mean Corpuscular Hemoglobin Concent 32.8 G/DL (32.0-36.0) Red Cell Distribution Width 12.4 % (11.6-14.8) Platelet Count 578 K/UL (150-450) H Mean Platelet Volume 6.3 FL (6.5-10.1) L Neutrophils (%) (Auto) 73.7 % (45.0-75.0) Lymphocytes (%) (Auto) 10.6 % (20.0-45.0) L Monocytes (%) (Auto) 4.3 % (1.0-10.0) Eosinophils (%) (Auto) 10.5 % (0.0-3.0) H Basophils (%) (Auto) 0.9 % (0.0-2.0) Sodium Level 133 MMOL/L (136-145) L Potassium Level 4.6 MMOL/L (3.5-5.1) Chloride Level 101 MMOL/L (98-107) Carbon Dioxide Level 22 MMOL/L (21-32) Anion Gap 10 mmol/L (5-15) Blood Urea Nitrogen 29 mg/dL (7-18) H Creatinine 1.2 MG/DL (0.55-1.30) Estimat Glomerular Filtration Rate 44.8 mL/min (>60) Glucose Level 149 MG/DL (74-106) H Calcium Level 9.8 MG/DL (8.5-10.1) Phosphorus Level 3.2 MG/DL (2.5-4.9) Magnesium Level 2.3 MG/DL (1.8-2.4) Total Bilirubin 0.2 MG/DL (0.2-1.0) Aspartate Amino Transf (AST/SGOT) 30 U/L (15-37) Alanine Aminotransferase (ALT/SGPT) 41 U/L (12-78) Alkaline Phosphatase 358 U/L (46-116) H Total Protein 6.9 G/DL (6.4-8.2) Albumin 1.9 G/DL (3.4-5.0) L Globulin 5.0 g/dL Albumin/Globulin Ratio 0.4 (1.0-2.7) L Microbiology Date/Time Source Procedure Growth Status 01/15/19 08:20 Indwelling Cath Urine Culture - Preliminary NO GROWTH Resulted Micha Ziegler MD Jan 16, 2019 13:27
[2019-01-16] MEDS ORDERED: NS 250 ML IV ONE (13:30)
--- NOTE | 2019-01-16 15:26 | NUR ---
CASE MANAGEMENT:REVIEW 01/16/ SI: POD #29...S/P RESECTION OF FAILED KOCJ POUCH POD#12...EXPL LAP W/SMALL BOWEL RESECTION AND RELOCATION OF ILEOSTOMY POD #9...S/P REPAIR OF STAPLE LINE DEHISCENCE POD #7...S/P REMOVE WOUND VAC. REPAIR BOWEL LEAK.ABDOMINAL WALL CLOSURE 98.1 90 18 142/74 96% ON RA H/H-10.0/30.6 BUN=29 IS: TPN/IL @ 74/HR IV MICAFUNGIN Q24 IV MEROPENEM Q12 CELLCEPT PO Q12 PROGRAF PO QHS LIDOCAINE PATCH NORVASC PO BID IV SYNTHROID QD LISINOPRIL PO QD TOPROL XL NG QD : MED/SURG STATUS 3 EAST PLAN: CONTINUE NPO, TPN, DO
--- NOTE | 2019-01-16 15:30 | NUR ---
NURSE NOTES: Ambulated w/pt around unit once without pt having to stop for a break; pt fatigued but overall tolerated well. Will continue to monitor.
[2019-01-16 16:00] VITALS: BP 144/79
--- NOTE | 2019-01-16 19:26 | NUR ---
HAND-OFF: Report given to PATRICK Ivy. Endorsed to clamp GT for one hour after administering Prograf.
--- NOTE | 2019-01-16 19:30 | NUR ---
NURSE NOTES: Received report & pt from PATRICK Menon. Pt lying in bed, a&ox4, in room air. No s/s of acute distress & c/o 2/10 pain at this time. GT to mod/int suction. Ileostomy appliance intact. Pickett cath intact & draining to gravity. HAROLDO to bulb suction. Surgical dressing C/D/I. PICC line intact with TPN & IVF running as ordered. Bed in lowest position, call light within reach. Will continue to monitor.
[2019-01-16 20:00] VITALS: BP 135/76
--- NOTE | 2019-01-16 20:00 | NUR ---
NURSE NOTES: Prograf & Cellcept administered. GT clamped x 1 hr as ordered by MD. Will continue to monitor.
[2019-01-16] MEDS: Fat Emulsion Iv 20% 216 ML in Tpn 1,560 ML IV SCH (20:08)
[2019-01-16] MEDS: Micafungin 100 MG in NS 110 ML IVPB SCH (20:13)
--- NOTE | 2019-01-16 21:00 | NUR ---
NURSE NOTES: @2100: Pt tolerated PO meds & GT clamp very well. Pt had no episodes of nausea or vomitting. GT unclamped & back to mod/int suction. PICC line dressing changed & no bleeding noted. Pt tolerated very well. @2210: Pt complaining of 6/10 sharp pain in the torso. No PRN meds for breakthrough pain in eMAR. Called Dr. Sotomayor and got an order for Fentanyl 8mcg SubQ Q2HR for brakthrough pain. Order noted & carried out.
[2019-01-16] MEDS: fentaNYL 100 mcg/2 mL SUBQ PRN (22:31)
[2019-01-17] VITALS: BP 139/77
[2019-01-17] MEDS: NovoLOG Insulin Flexpen SUBQ SCH ×5 (00:03→23:59)
[2019-01-17 04:00] VITALS: BP 133/82
[2019-01-17] MEDS: D5 1/2NS w/KCl 40meq 1000ml 1,000 ML IV SCH ×3 (04:05→23:57)
[2019-01-17 06:00] LABS: BASOPHILS % (AUTO) 1.3 % (0.0-2.0); HEMATOCRIT 31.2 % (37.0-47.0); HEMOGLOBIN 10.3 G/DL (12.0-16.0); LYMPHOCYTES % (AUTO) 7.7 % (20.0-45.0); MEAN CORPUSCULAR VOLUME 91 FL (80-99); MONOCYTES % (AUTO) 2.8 % (1.0-10.0); NEUTROPHILS % (AUTO) 76.1 % (45.0-75.0); PLATELET COUNT 591 K/UL (150-450); RED BLOOD COUNT 3.44 M/UL (4.20-5.40); RED CELL DISTRIBUTION WIDTH 13.5 % (11.6-14.8); WHITE BLOOD COUNT 10.1 K/UL (4.8-10.8)
[2019-01-17 06:14] LABS: ALANINE AMINOTRANSFERASE 43 U/L (12-78); ALBUMIN/GLOBULIN RATIO 0.4 (1.0-2.7); ALKALINE PHOSPHATASE 394 U/L (46-116); ANION GAP 9 mmol/L (5-15); ASPARTATE AMINO TRANSFERASE 39 U/L (15-37); BILIRUBIN,TOTAL 0.3 MG/DL (0.2-1.0); BLOOD UREA NITROGEN 28 mg/dL (7-18); CALCIUM 9.9 MG/DL (8.5-10.1); CARBON DIOXIDE 23 MMOL/L (21-32); CHLORIDE 103 MMOL/L (98-107); CREATININE 1.2 MG/DL (0.55-1.30); POTASSIUM 4.9 MMOL/L (3.5-5.1); SODIUM 135 MMOL/L (136-145)
--- NOTE | 2019-01-17 07:22 | NUR ---
HAND-OFF: Report given to PATRICK Menon. Pt in stable condition. Rounds done.
--- NOTE | 2019-01-17 07:30 | NUR ---
NURSE NOTES: Pt lying in bed w/bed in lowest position and call light within reach. Pt A&Ox4, VSS, and in no apparent distress at this time. MARILY PICC line intact/asymptomatic w/IVF & TPN infusing; F/C patent/draining; ileostomy appliance intact w/scant output; HAROLDO drain to bulb suction w/serosanguineous output; GT to mod/int suction; and dressing C/D/I. Will continue to monitor.
[2019-01-17 08:00] VITALS: BP 147/78
[2019-01-17] MEDS: Metoprolol Succinate XL 50mg tab ORAL SCH (08:39)
[2019-01-17] MEDS: Lisinopril 20mg tab ORAL SCH (08:40)
[2019-01-17] MEDS: Pantoprazole Inj IVP SCH (08:40)
[2019-01-17] MEDS: Mycophenolate 250mg cap ORAL SCH ×2 (08:40→20:27)
--- NOTE | 2019-01-17 09:25 | General Progress Note ---
Progress Note Progress Note AVSS Ambulates in hallways. Still with 1-2 episodes of emesis/24 hours Abdomen soft, non-distended, incisions clean, stoma pink with scant bilious output Urine 2875 Gastrostomy 1715 Emesis 400 HAROLDO 38 serous labs okay Imp. High volume gastrostomy output + emesis despite suction to catheter 8 days s/p repair ileostomy segment perforation 3 days s/p small bowel resections and repair of cystotomy Low serum albumin despite prolonged TPN Plan: Unless gastrostomy output decreases and ileostomy increases will need CT scan abd+pelvis with oral contrast given via gastrostomy continue TPN,Pickett, npo x meds Lars Sotomayor MD Jan 17, 2019 09:25
[2019-01-17 11:25] VITALS: BP 156/85
[2019-01-17] MEDS: Lidocaine HCl 2% Jelly 6ml Tube TOPIC PRN (12:50)
--- NOTE | 2019-01-17 13:15 | General Progress Note ---
Assessment/Plan Status: progressing Assessment/Plan: fu LFTs>>> stable now on TPN cellcept 750 BID prograft 3 gm per day monitor for Lyte protonix will fu labs fu surg recs abx per ID GT to suction cont compazine and Zofran supportive care stable LFTS will fu Subjective ROS Limited/Unobtainable: Yes Allergies: Coded Allergies: CODEINE (Verified Allergy, Severe, 12/17/18) Face contractions HYDROMORPHONE (Verified Allergy, Severe, Itching, 12/17/18) Itching whole body METOCLOPRAMIDE (Verified Allergy, Severe, 12/17/18) Face contractions MORPHINE (Verified Allergy, Severe, Shortness of Breath, 12/17/18) SULFA (SULFONAMIDE ANTIBIOTICS) (Verified Allergy, Severe, 12/17/18) Face contractions Subjective vomited once about 250 cc Objective Last 24 Hour Vital Signs Date Time Temp Pulse Resp B/P (MAP) Pulse Ox O2 Delivery O2 Flow Rate FiO2 01/17/19 11:25 97.7 99 18 156/85 (108) 95 01/17/19 09:00 Room Air 01/17/19 08:40 147/78 01/17/19 08:39 104 147/78 01/17/19 08:39 104 147/78 01/17/19 08:06 98 Nasal Cannula 2.0 01/17/19 08:00 99.5 104 18 147/78 (101) 95 01/17/19 04:00 98.8 102 18 133/82 (99) 95 01/17/19 00:00 98.9 100 16 139/77 (97) 95 01/16/19 21:00 Room Air 01/16/19 20:00 99.3 93 16 135/76 (95) 96 01/16/19 19:20 98 Nasal Cannula 2.0 28 01/16/19 18:50 87 18 98 Nasal Cannula 2.0 28 01/16/19 18:05 98 144/79 01/16/19 16:00 98.4 98 18 144/79 (100) 97 Intake and Output 01/16/19 01/17/19 18:59 06:59 Intake Total 2358 ml 1914 ml Output Total 2517 ml 2333 ml Balance -159 ml -419 ml Intake Oral 120 ml IV Total 2238 ml 1914 ml Output Urine Total 1350 ml 1350 ml Stool Total 2 ml 20 ml Emesis 250 ml 125 ml Drainage Total 20 ml 18 ml Other 895 ml 820 ml Laboratory Tests 01/17/19 05:05: White Blood Count 10.1, Red Blood Count 3.44L, Hemoglobin 10.3L, Hematocrit 31.2L, Mean Corpuscular Volume 91, Mean Corpuscular Hemoglobin 30.0, Mean Corpuscular Hemoglobin Concent 33.0, Red Cell Distribution Width 13.5, Platelet Count 591H, Mean Platelet Volume 5.7L, Neutrophils (%) (Auto) 76.1H, Lymphocytes (%) (Auto) 7.7L, Monocytes (%) (Auto) 2.8, Eosinophils (%) (Auto) 12.0H, Basophils (%) (Auto) 1.3, Sodium Level 135L, Potassium Level 4.9, Chloride Level 103, Carbon Dioxide Level 23, Anion Gap 9, Blood Urea Nitrogen 28H, Creatinine 1.2, Estimat Glomerular Filtration Rate 44.8, Glucose Level 147H , Calcium Level 9.9, Total Bilirubin 0.3, Aspartate Amino Transf (AST/SGOT) 39H , Alanine Aminotransferase (ALT/SGPT) 43, Alkaline Phosphatase 394H, Total Protein 7.2, Albumin 2.0L, Globulin 5.2, Albumin/Globulin Ratio 0.4L Height (Feet): 5 Height (Inches): 3.00 Weight (Pounds): 135 General Appearance: alert EENT: normal ENT inspection Neck: supple Cardiovascular: normal rate Respiratory/Chest: decreased breath sounds Abdomen: normal bowel sounds, non tender, soft Extremities: non-tender Max Dozier MD Jan 17, 2019 13:15
[2019-01-17] MEDS ORDERED: NS Irrig 1000ml ONE (14:39)
[2019-01-17] MEDS ORDERED: NS 275ml ONE (14:39)
[2019-01-17] MEDS ORDERED: Tubing IV Secondary IV ONE (14:39)
--- NOTE | 2019-01-17 15:21 | Cardiology Progress Note ---
Assessment/Plan Status Narrative 1. Malfunctioning Kock pouch continent ileostomy. 2. History of ulcerative colitis. 3. History of primary sclerosing cholangitis. 4. Status post multiple abdominal operations. 4.1. Appendectomy in 1964. 4.2. Proctocolectomy and Kock pouch in 1978. 4.3. Total abdominal hysterectomy and bilateral salpingo-oophorectomy 1983 4.4. Cholecystectomy in 1985. 4.5. Orthotopic liver transplantation in 1999. 4.6. Revision of Kock pouch and repair of fistula in 2010. HTN- New onset- Controlled on Norvasc /Lisinopril and Metoprolol Tachycardia- improved with IV Fluids and Beta Blockers. Renal insuff- Most probably due volume depletion ( High GT output), possibly due to Toradal- Creat 1.2 Volume depletion- high GT output- I/Os negative Assessment/Plan Metoprolol 25 mg QD Zestril 40 mg QD. Norvasc 5 mg BID Monitor BP NS Bolus 250x 2 today IV Fluids at 100 cch Repeat labs in AM. Encouraged increased ambulation. May need CT scan next week. Discussed with RN. Subjective Cardiovascular: Reports: no symptoms Respiratory: Reports: no symptoms Gastrointestinal/Abdominal: Reports: vomiting - x2 today Genitourinary: Reports: no symptoms Subjective Still NPO Had N/V x2 Has been out of bed, ambulated. Pain controlled Creat 1.2 Still on TPN High output from GT I/Os Negative > 500 cc Objective Last 24 Hour Vital Signs Date Time Temp Pulse Resp B/P (MAP) Pulse Ox O2 Delivery O2 Flow Rate FiO2 01/17/19 11:25 97.7 99 18 156/85 (108) 95 01/17/19 09:00 Room Air 01/17/19 08:40 147/78 01/17/19 08:39 104 147/78 01/17/19 08:39 104 147/78 01/17/19 08:06 98 Nasal Cannula 2.0 01/17/19 08:00 99.5 104 18 147/78 (101) 95 01/17/19 04:00 98.8 102 18 133/82 (99) 95 01/17/19 00:00 98.9 100 16 139/77 (97) 95 01/16/19 21:00 Room Air 01/16/19 20:00 99.3 93 16 135/76 (95) 96 01/16/19 19:20 98 Nasal Cannula 2.0 28 01/16/19 18:50 87 18 98 Nasal Cannula 2.0 28 01/16/19 18:05 98 144/79 01/16/19 16:00 98.4 98 18 144/79 (100) 97 General Appearance: no apparent distress, alert Neck: supple Cardiovascular: normal rate, regular rhythm, no gallop/murmur Respiratory/Chest: lungs clear, normal breath sounds Abdomen: non tender, hypoactive bowel sounds Extremities: non-tender, normal inspection, no calf tenderness, no swelling Intake and Output 01/16/19 01/17/19 18:59 06:59 Intake Total 2358 ml 1914 ml Output Total 2517 ml 2333 ml Balance -159 ml -419 ml Intake Oral 120 ml IV Total 2238 ml 1914 ml Output Urine Total 1350 ml 1350 ml Stool Total 2 ml 20 ml Emesis 250 ml 125 ml Drainage Total 20 ml 18 ml Other 895 ml 820 ml Laboratory Tests Test 01/17/19 05:05 White Blood Count 10.1 K/UL (4.8-10.8) Red Blood Count 3.44 M/UL (4.20-5.40) L Hemoglobin 10.3 G/DL (12.0-16.0) L Hematocrit 31.2 % (37.0-47.0) L Mean Corpuscular Volume 91 FL (80-99) Mean Corpuscular Hemoglobin 30.0 PG (27.0-31.0) Mean Corpuscular Hemoglobin Concent 33.0 G/DL (32.0-36.0) Red Cell Distribution Width 13.5 % (11.6-14.8) Platelet Count 591 K/UL (150-450) H Mean Platelet Volume 5.7 FL (6.5-10.1) L Neutrophils (%) (Auto) 76.1 % (45.0-75.0) H Lymphocytes (%) (Auto) 7.7 % (20.0-45.0) L Monocytes (%) (Auto) 2.8 % (1.0-10.0) Eosinophils (%) (Auto) 12.0 % (0.0-3.0) H Basophils (%) (Auto) 1.3 % (0.0-2.0) Sodium Level 135 MMOL/L (136-145) L Potassium Level 4.9 MMOL/L (3.5-5.1) Chloride Level 103 MMOL/L (98-107) Carbon Dioxide Level 23 MMOL/L (21-32) Anion Gap 9 mmol/L (5-15) Blood Urea Nitrogen 28 mg/dL (7-18) H Creatinine 1.2 MG/DL (0.55-1.30) Estimat Glomerular Filtration Rate 44.8 mL/min (>60) Glucose Level 147 MG/DL (74-106) H Calcium Level 9.9 MG/DL (8.5-10.1) Total Bilirubin 0.3 MG/DL (0.2-1.0) Aspartate Amino Transf (AST/SGOT) 39 U/L (15-37) H Alanine Aminotransferase (ALT/SGPT) 43 U/L (12-78) Alkaline Phosphatase 394 U/L (46-116) H Total Protein 7.2 G/DL (6.4-8.2) Albumin 2.0 G/DL (3.4-5.0) L Globulin 5.2 g/dL Albumin/Globulin Ratio 0.4 (1.0-2.7) L Microbiology Date/Time Source Procedure Growth Status 01/15/19 08:20 Indwelling Cath Urine Culture - Final Gram Positive Cocci Complete Micha Ziegler MD Jan 17, 2019 15:21
--- NOTE | 2019-01-17 15:30 | Infectious Diseases Prog Note ---
Assessment/Plan Assessment/Plan ASSESSMENT AND PLAN: 1. leukocytosis, fevers, ? sepsis, possible intra-abdominal infection/early sbo , s/p exploratory laparotomy and small bowel segmental resection, fungemia risk with hx of tpn and abx, + picc line s/p surgery for post-operative leak - 01/07/19, bfc with jeff albicans ? uti, + ua, + symptoms - improved, urine culture c/w contaminant N/V - f/u CT planned, some sputum per patient and will get chest x-ray - meropenem and micafungin - day # 10 post-op (01/07/19) - f/u on chest x-ray and CT abdomen and pelvis - cultures noted, bfc - jeff, blood cultures negative - monitor labs, leukocytosis and fevers resolved - d/w Dr. Ziegler 2. 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 3. Liver transplantation. 4. Sclerosing cholangitis. 5. Ulcerative colitis. 6. The patient is anemic. 7. History of cholecystectomy, appendectomy, hysterectomy, and proctocolectomy. 8. History of multiple abdominal operations. 9. Allergies to codeine, hydromorphone, metoclopramide, morphine, and sulfa. 10. Family doctor is Noncontributory. 11. Social history is negative. 12. MAR was noted. 13. Case discussed with RN. 14. Case discussed with the patient. 15. Continue treatment per Dr. Sotomayor and consultants. Subjective Constitutional: Reports: fatigue; Denies: fever HEENT: Reports: other - some sputum production per patient ; Denies: congestion Respiratory: Denies: shortness of breath Cardiovascular: Denies: chest pain Gastrointestinal/Abdominal: Reports: nausea, vomiting, diarrhea, other - no sig abdominal pain Genitourinary: Reports: other - + morales - no discomfort today Neurologic: Denies: weakness Psychiatric: Denies: depression Skin: Denies: rash Hematologic: Denies: bleeding Musculoskeletal: Denies: pain Allergies: Coded Allergies: CODEINE (Verified Allergy, Severe, 12/17/18) Face contractions HYDROMORPHONE (Verified Allergy, Severe, Itching, 12/17/18) Itching whole body METOCLOPRAMIDE (Verified Allergy, Severe, 12/17/18) Face contractions MORPHINE (Verified Allergy, Severe, Shortness of Breath, 12/17/18) SULFA (SULFONAMIDE ANTIBIOTICS) (Verified Allergy, Severe, 12/17/18) Face contractions Objective Vital Signs Last 24 Hour Vital Signs Date Time Temp Pulse Resp B/P (MAP) Pulse Ox O2 Delivery O2 Flow Rate FiO2 01/17/19 11:25 97.7 99 18 156/85 (108) 95 01/17/19 09:00 Room Air 01/17/19 08:40 147/78 01/17/19 08:39 104 147/78 01/17/19 08:39 104 147/78 01/17/19 08:06 98 Nasal Cannula 2.0 28 01/17/19 08:00 99.5 104 18 147/78 (101) 95 01/17/19 04:00 98.8 102 18 133/82 (99) 95 01/17/19 00:00 98.9 100 16 139/77 (97) 95 01/16/19 21:00 Room Air 01/16/19 20:00 99.3 93 16 135/76 (95) 96 01/16/19 19:20 98 Nasal Cannula 2.0 01/16/19 18:50 87 18 98 Nasal Cannula 2.0 01/16/19 18:05 98 144/79 01/16/19 16:00 98.4 98 18 144/79 (100) 97 Height (Feet): 5 Height (Inches): 3.00 Weight (Pounds): 135 General Appearance: no acute distress HEENT: normocephalic, atraumatic, anicteric, mucous membranes moist Respiratory/Chest: lungs clear, normal breath sounds, no respiratory distress Cardiovascular: normal rate, regular rhythm, no gallop/murmur, no JVD Abdomen: normal bowel sounds, soft, non tender, no organomegaly, non distended Genitourinary: other - + morales - urine clear Extremities: no cyanosis Skin: no rash 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 Good bowel and bag opacification with no evidence of bowel obstruction. Unusual, markedly distended unopacified loop of bowel in the pelvis. Although unopacified, this does not appear to be an abscess as there is a wall and other characteristics more in keeping with bowel. Would consider a large diverticulum or possibly remnant of the previous Kock pouch or part of the small bowel leading to the old pouch as those segments are sometimes quite distended. Status post liver transplant. Status post cholecystectomy. Mild basal atelectasis. Chest x-ray - no pna, report noted CT abdomen/pelvis - 12/30/18 - Impression: Postsurgical changes, as described Unusual tubular structure filled mostly with gas but also some fluid communicating with the small bowel at the site of a right lower quadrant enteroenterostomy. Uncertain as to whether this represents an unusual large diverticulum, a true extraluminal gas collection, or a portion of an old continent ileostomy pouch. This is also previously described Dilated proximal small bowel proximal to the enteroenterostomy with slow forward propulsion of contents. Partial small bowel obstruction not completely excludable although unlikely given evidence of forward propulsion of contrast and filling of the ileostomy on prior 12/26/2018 exam; findings most likely functional in nature. Correlate with clinical findings Small anterior pelvic and deep pelvic fluid pockets, most likely represent retained postoperative fluid collections. Abscess as etiology of any of these not completely excludable; correlation with clinical findings recommended Postsurgical changes of the liver status post transplantation Punctate nonobstructing bilateral intrarenal calculi Bilateral basilar pulmonary parenchymal atelectasis and/or scarring Chest x-ray - 01/07/19 - Images previously reviewed in person with Dr. Sotomayor Interval placement of a right transjugular central line, catheter tip in the region of the high right atrium. Left arm PICC line remains in place with the catheter tip at the cavoatrial junction. No evidence of pneumothorax. No definite focal airspace consolidation or pleural effusion. Surgical clips noted projecting over the upper abdomen. Microbiology Date/Time Source Procedure Growth Status 01/15/19 08:20 Indwelling Cath Urine Culture - Final Gram Positive Cocci Complete Laboratory Tests Test 01/17/19 05:05 White Blood Count 10.1 K/UL (4.8-10.8) Red Blood Count 3.44 M/UL (4.20-5.40) L Hemoglobin 10.3 G/DL (12.0-16.0) L Hematocrit 31.2 % (37.0-47.0) L Mean Corpuscular Volume 91 FL (80-99) Mean Corpuscular Hemoglobin 30.0 PG (27.0-31.0) Mean Corpuscular Hemoglobin Concent 33.0 G/DL (32.0-36.0) Red Cell Distribution Width 13.5 % (11.6-14.8) Platelet Count 591 K/UL (150-450) H Mean Platelet Volume 5.7 FL (6.5-10.1) L Neutrophils (%) (Auto) 76.1 % (45.0-75.0) H Lymphocytes (%) (Auto) 7.7 % (20.0-45.0) L Monocytes (%) (Auto) 2.8 % (1.0-10.0) Eosinophils (%) (Auto) 12.0 % (0.0-3.0) H Basophils (%) (Auto) 1.3 % (0.0-2.0) Sodium Level 135 MMOL/L (136-145) L Potassium Level 4.9 MMOL/L (3.5-5.1) Chloride Level 103 MMOL/L (98-107) Carbon Dioxide Level 23 MMOL/L (21-32) Anion Gap 9 mmol/L (5-15) Blood Urea Nitrogen 28 mg/dL (7-18) H Creatinine 1.2 MG/DL (0.55-1.30) Estimat Glomerular Filtration Rate 44.8 mL/min (>60) Glucose Level 147 MG/DL (74-106) H Calcium Level 9.9 MG/DL (8.5-10.1) Total Bilirubin 0.3 MG/DL (0.2-1.0) Aspartate Amino Transf (AST/SGOT) 39 U/L (15-37) H Alanine Aminotransferase (ALT/SGPT) 43 U/L (12-78) Alkaline Phosphatase 394 U/L (46-116) H Total Protein 7.2 G/DL (6.4-8.2) Albumin 2.0 G/DL (3.4-5.0) L Globulin 5.2 g/dL Albumin/Globulin Ratio 0.4 (1.0-2.7) L Current Medications Medications (Trade) Dose Ordered Sig/Kajal Route PRN Reason Start Time Stop Time Status Last Admin Dose Admin Acetaminophen (Tylenol) 650 mg Q4H PRN ORAL Mild Pain/Temp > 100.2 01/12/19 13:30 01/25/19 13:29 Acetaminophen (Tylenol) 650 mg Q6H PRN ORAL headache 01/14/19 09:00 02/13/19 08:59 Al Hydroxide/Mg Hydroxide (Mylanta) 30 ml Q6H PRN ORAL dyspepsia 01/12/19 14:00 01/27/19 13:59 01/16/19 02:35 Amlodipine Besylate (Norvasc) 5 mg BID ORAL 01/12/19 18:00 02/02/19 08:59 01/17/19 08:39 Clonidine HCl (Catapres Tab) 0.1 mg Q6H PRN SL SBP>150 mmHg 01/12/19 13:30 01/21/19 13:29 01/15/19 08:59 Dextrose 1,000 ml @ 0 mls/hr Q24H PRN IV PN interrupted or unavailable 01/12/19 20:00 01/19/19 19:59 Dextrose (Dextrose 50%) 25 ml Q30M PRN IV Hypoglycemia 01/12/19 13:45 01/21/19 12:44 Dextrose (Dextrose 50%) 50 ml Q30M PRN IV Hypoglycemia 01/12/19 13:45 01/21/19 12:44 Dextrose/ Electrolytes 1,000 ml @ 100 mls/hr Q10H IV 01/12/19 13:30 02/11/19 09:29 01/17/19 14:32 Diphenhydramine HCl (Benadryl) 50 mg Q4H PRN ORAL Itching 01/12/19 14:00 01/26/19 13:59 Fat Emulsion Intravenous 216 ml/Amino Acids/ Electrolytes/ Dextrose 1,776 ml @ 74 mls/hr Q24H IV 01/12/19 20:00 01/29/19 19:59 01/16/19 20:08 Fentanyl (Duragesic) 1 patch Q72H TDERMAL 01/15/19 09:00 01/22/19 08:59 01/15/19 09:17 Fentanyl Citrate (Sublimaze 100 mcg/2 mL) 8 mcg Q2H PRN SUBQ Breakthrough pain 01/16/19 22:15 01/23/19 22:14 01/16/19 22:31 Insulin Aspart (NovoLOG) Q6HR SUBQ 01/12/19 18:00 02/11/19 17:59 01/17/19 12:28 Levothyroxine Sodium (Synthroid) 100 mcg DAILY IV 01/13/19 09:00 02/04/19 08:59 01/17/19 08:40 Lidocaine HCl (Xylocaine Jelly 2%) 1 applic Q3H PRN TOPIC BURNING AROUND MEATUS 01/14/19 17:15 02/13/19 17:14 01/17/19 12:50 Lisinopril (Prinivil) 40 mg DAILY ORAL 01/13/19 09:00 01/30/19 08:59 01/17/19 08:40 Meropenem 1 gm/ Sodium Chloride 100 ml @ 200 mls/hr Q12HR@0600,1800 IVPB 01/13/19 18:00 01/18/19 17:59 01/17/19 05:01 Metoprolol Succinate (Toprol XL) 50 mg DAILY ORAL 01/13/19 09:00 01/23/19 08:59 01/17/19 08:39 Micafungin Sodium 100 mg/Sodium Chloride 110 ml @ 110 mls/hr Q24H IVPB 01/12/19 20:00 01/18/19 19:59 01/16/19 20:13 Miscellaneous Medication (fentaNYL Destruction) 1 ea Q72H MISC 01/15/19 08:59 02/11/19 08:58 01/15/19 09:18 Mycophenolate Mofetil (Cellcept) 750 mg Q12HR ORAL 01/12/19 21:00 01/24/19 08:59 01/17/19 08:40 Naloxone HCl (Narcan) 0.1 mg PRN IV Sedation scale 3 or 4 01/12/19 13:30 02/03/19 13:44 Ondansetron HCl (Zofran) 4 mg Q6H PRN IVP Nausea & Vomiting 01/12/19 16:00 01/20/19 15:59 01/17/19 14:32 Pantoprazole (Protonix) 40 mg DAILY IVP 01/13/19 09:00 01/25/19 08:59 01/17/19 08:40 Prochlorperazine (Compazine) 10 mg Q6H PRN IVP Nausea & Vomiting 01/17/19 14:00 01/24/19 19:59 Sodium Chloride 250 ml @ 999 mls/hr Q16M ONCE IV 01/17/19 15:30 01/17/19 15:45 UNV Sodium Chloride 250 ml @ 999 mls/hr Q16M ONCE IV 01/17/19 20:30 01/17/19 20:45 UNV Tacrolimus (Prograf) 1 mg DAILY ORAL 01/13/19 09:00 02/04/19 08:59 01/17/19 08:34 Tacrolimus (Prograf) 2 mg BEDTIME ORAL 01/16/19 21:00 01/20/19 20:59 01/16/19 20:13 Trazodone HCl (Desyrel) 25 mg HSPRN PRN ORAL INSOMNIA 01/12/19 20:00 02/03/19 19:59 01/15/19 23:59 Philly Shelby MD Jan 17, 2019 15:29
[2019-01-17 15:41] VITALS: BP 138/89
--- NOTE | 2019-01-17 19:30 | NUR ---
HAND-OFF: Report given to PATRICK Kamara.
--- NOTE | 2019-01-17 19:30 | NUR ---
NURSE NOTES: Report received from PATRICK Menon. Patient is resting in bed. Gastric tube connect to medium intermittent suction draining yellow green liquid. HAROLDO drain dressing is c/d/i and draining serosanguineous fluid to gravity. Pickett catheter is intact draining clear yellow urine to gravity. Fluids and TPN running according to eMAR. PICC line site and dressing c/d/i. Patient vomited x1 green liquid and c/o of nausea, given medication per eMAR. No c/o of pain at this time. I/S at bedside. Bed in low locked position with call light within reach. Will continue to monitor.
[2019-01-17 20:00] VITALS: BP 144/86
[2019-01-17] MEDS: Micafungin 100 MG in NS 110 ML IVPB SCH (20:27)
[2019-01-17] MEDS: Fat Emulsion Iv 20% 216 ML in Tpn 1,560 ML IV SCH (20:30)
[2019-01-18] VITALS: BP 135/75
[2019-01-18] MEDS: TraZODone HCl 25 mg tablet ORAL PRN ×2 (01:00→21:46)
[2019-01-18 04:00] VITALS: BP 147/75
[2019-01-18] MEDS: NovoLOG Insulin Flexpen SUBQ SCH ×3 (05:32→18:05)
[2019-01-18 06:04] LABS: EOSINOPHILS % (AUTO) 8.5 % (0.0-3.0); HEMATOCRIT 30.5 % (37.0-47.0); HEMOGLOBIN 10.1 G/DL (12.0-16.0); LYMPHOCYTES % (AUTO) 8.2 % (20.0-45.0); MEAN CORPUSCULAR VOLUME 89 FL (80-99); MONOCYTES % (AUTO) 3.5 % (1.0-10.0); NEUTROPHILS % (AUTO) 78.9 % (45.0-75.0); PLATELET COUNT 575 K/UL (150-450); RED BLOOD COUNT 3.41 M/UL (4.20-5.40); RED CELL DISTRIBUTION WIDTH 13.4 % (11.6-14.8); WHITE BLOOD COUNT 7.2 K/UL (4.8-10.8)
[2019-01-18 06:21] LABS: ALANINE AMINOTRANSFERASE 41 U/L (12-78); ALBUMIN 1.9 G/DL (3.4-5.0); ALBUMIN/GLOBULIN RATIO 0.4 (1.0-2.7); ALKALINE PHOSPHATASE 408 U/L (46-116); ANION GAP 9 mmol/L (5-15); ASPARTATE AMINO TRANSFERASE 35 U/L (15-37); BILIRUBIN,TOTAL 0.3 MG/DL (0.2-1.0); BLOOD UREA NITROGEN 27 mg/dL (7-18); CALCIUM 9.6 MG/DL (8.5-10.1); CARBON DIOXIDE 23 MMOL/L (21-32); CHLORIDE 103 MMOL/L (98-107); CREATININE 1.3 MG/DL (0.55-1.30); POTASSIUM 4.5 MMOL/L (3.5-5.1); SODIUM 135 MMOL/L (136-145)
--- NOTE | 2019-01-18 07:30 | NUR ---
NURSE NOTES: Pt lying in bed w/bed in lowest position and call light within reach. Pt A&Ox4, VSS, and in no apparent distress. MARILY PICC line intact/asymptomatic w/IVF & TPN infusing; F/C patent/draining well; HAROLDO to bulb suction; GT to mod/int suction; and surgical dressing C/D/I. Pt has no concerns or complaints at this time. Will continue to monitor.
--- NOTE | 2019-01-18 07:38 | NUR ---
HAND-OFF: Report given to PATRICK Menon. Dr. Sotomayor called to inform him about low magnesium level. Endorsed to AM RN as well. Patient currently in stable condition at this time.
--- NOTE | 2019-01-18 07:44 | General Progress Note ---
Assessment/Plan Status: progressing Assessment/Plan: fu LFTs>>> stable now on TPN cellcept 750 BID prograft 3 gm per day monitor for Lyte protonix will fu labs fu surg recs abx per ID GT to suction cont compazine and Zofran supportive care will fu Subjective ROS Limited/Unobtainable: Yes Allergies: Coded Allergies: CODEINE (Verified Allergy, Severe, 12/17/18) Face contractions HYDROMORPHONE (Verified Allergy, Severe, Itching, 12/17/18) Itching whole body METOCLOPRAMIDE (Verified Allergy, Severe, 12/17/18) Face contractions MORPHINE (Verified Allergy, Severe, Shortness of Breath, 12/17/18) SULFA (SULFONAMIDE ANTIBIOTICS) (Verified Allergy, Severe, 12/17/18) Face contractions Subjective vomited once had some fluid in her ostomy bag Objective Last 24 Hour Vital Signs Date Time Temp Pulse Resp B/P (MAP) Pulse Ox O2 Delivery O2 Flow Rate FiO2 01/18/19 04:00 99.6 104 16 147/75 (99) 95 01/18/19 00:00 100.6 106 16 135/75 (95) 96 01/17/19 21:54 100.3 01/17/19 21:00 Room Air 01/17/19 20:14 99 Nasal Cannula 2.0 28 01/17/19 20:00 100.9 118 18 144/86 (105) 96 01/17/19 17:51 106 138/89 01/17/19 15:41 100.5 106 18 138/89 (105) 96 01/17/19 11:25 97.7 99 18 156/85 (108) 95 01/17/19 09:00 Room Air 01/17/19 08:40 147/78 01/17/19 08:39 104 147/78 01/17/19 08:39 104 147/78 01/17/19 08:06 98 Nasal Cannula 2.0 28 01/17/19 08:00 99.5 104 18 147/78 (101) 95 Intake and Output 01/17/19 01/18/19 19:00 07:00 Intake Total 2114 ml 1914 ml Output Total 2106 ml 1310 ml Balance 8 ml 604 ml Intake Oral 100 ml IV Total 2014 ml 1914 ml Output Urine Total 1275 ml 950 ml Emesis 130 ml 300 ml Drainage Total 20 ml 20 ml Other 681 ml 40 ml Laboratory Tests 01/18/19 05:15: White Blood Count 7.2, Red Blood Count 3.41L, Hemoglobin 10.1L, Hematocrit 30.5L , Mean Corpuscular Volume 89, Mean Corpuscular Hemoglobin 29.6, Mean Corpuscular Hemoglobin Concent 33.0, Red Cell Distribution Width 13.4, Platelet Count 575H, Mean Platelet Volume 5.9L, Neutrophils (%) (Auto) 78.9H, Lymphocytes (%) (Auto) 8.2L, Monocytes (%) (Auto) 3.5, Eosinophils (%) (Auto) 8.5H, Basophils (%) (Auto) 1.0, Sodium Level 135L, Potassium Level 4.5, Chloride Level 103, Carbon Dioxide Level 23, Anion Gap 9, Blood Urea Nitrogen 27H, Creatinine 1.3, Estimat Glomerular Filtration Rate 40.9, Glucose Level 171H , Calcium Level 9.6, Magnesium Level 1.7L, Total Bilirubin 0.3, Aspartate Amino Transf (AST/SGOT) 35, Alanine Aminotransferase (ALT/SGPT) 41, Alkaline Phosphatase 408H, Total Protein 6.9, Albumin 1.9L, Globulin 5.0, Albumin/ Globulin Ratio 0.4L Height (Feet): 5 Height (Inches): 3.00 Weight (Pounds): 135 General Appearance: alert EENT: normal ENT inspection Neck: supple Cardiovascular: normal rate Respiratory/Chest: decreased breath sounds Abdomen: decreased bowel sounds Extremities: non-tender Max Dozier MD Jan 18, 2019 07:44
[2019-01-18 08:00] VITALS: BP 162/90
[2019-01-18] MEDS: Metoprolol Succinate XL 50mg tab ORAL SCH (08:30)
[2019-01-18] MEDS: Lisinopril 20mg tab ORAL SCH (08:31)
[2019-01-18] MEDS: Mycophenolate 250mg cap ORAL SCH ×2 (08:31→20:44)
[2019-01-18] MEDS: Pantoprazole Inj IVP SCH (08:33)
[2019-01-18] MEDS: fentaNYL Destruction MISC SCH (08:37)
--- NOTE | 2019-01-18 08:59 | Diagnostic Imaging Report ---
EXAM: XR Chest, 1 View CLINICAL HISTORY: INFECT TECHNIQUE: Frontal view of the chest. COMPARISON: Chest x-ray, 9 18 19 171 FINDINGS: Lungs: Elevated right hemidiaphragm. Lungs clear. Vascularity within normal limits. Pleural space: Unremarkable. No pneumothorax. Heart: Unremarkable. No cardiomegaly. Mediastinum: Unremarkable. Bones joints: Unremarkable. Tubes, lines and devices: Stable left PICC line. Interval removal endotracheal tube and right IJ catheter. Upper abdomen: Surgical clips in epigastric region. IMPRESSION: 1. Stable left PICC line. Interval removal endotracheal tube and right IJ catheter. 2. Elevated right hemidiaphragm. Lungs clear.
--- NOTE | 2019-01-18 09:07 | General Progress Note ---
Progress Note Progress Note T 100.9 Blood cultures obtained but could not get from PIC line Continued episodes of emesis - total gastrostomy + emesis output 1930 cc Abdomen soft, non-tender, incisions clean Urine 2225 Gastr+emesis 1930 Ileostomy 40cc HAROLDO 20 serous WBC 7200 Hgb 10.1 Platelets up 575,000 BUN 27 Cr up 1.3 Mg 1.7 alk phos up 408 Imp. Fever without leukocytosis - r/o due to PIC or intra-abdominal collection Plan: Blood cultures obtained (but peripheral draw) STAT CT scan abd+pelvis with oral contrast Mg infusion f/u labs Lars Sotomayor MD Jan 18, 2019 09:07
[2019-01-18] MEDS: D5 1/2NS w/KCl 40meq 1000ml 1,000 ML IV SCH ×2 (09:55→18:04)
--- NOTE | 2019-01-18 10:30 | NUR ---
NURSE NOTES: Pt ambulated around unit once w/PT; pt fatigued but tolerated activity fairly well. Pt safely in bed w/o complaints at this time. Will continue to monitor.
[2019-01-18 12:00] VITALS: BP 141/77
--- NOTE | 2019-01-18 12:52 | NUR ---
NURSE NOTES:ACCOMPANIED PT. TO RADIOLOGY BY KATELYN WITH IVS ON GOING,FOR CT ABDOMEN,GT PLUGGED,NO EPISODE OF NAUSEA/VOMITING.PT. STABLE ON INSIDE B2B SALES.
[2019-01-18] MEDS ORDERED: Vancomycin 1.25gm/NS Premix IVPB SCH (13:00)
--- NOTE | 2019-01-18 13:15 | NUR ---
NURSE NOTES:BACK FR.CT.BY KATELYN,AND STAFF,TOLERATED PROCEDURE.
--- NOTE | 2019-01-18 13:31 | Infectious Diseases Prog Note ---
Assessment/Plan Assessment/Plan ASSESSMENT AND PLAN: 1. leukocytosis, fevers, ? sepsis, possible intra-abdominal infection/early sbo , s/p exploratory laparotomy and small bowel segmental resection, fungemia risk with hx of tpn and abx, + picc line s/p surgery for post-operative leak - 01/07/19, bfc with jeff albicans ? uti, + ua, + symptoms - improved, urine culture c/w contaminant N/V - f/u CT planned, some sputum per patient and will get chest x-ray, febrile, ? picc line, urine culture negative, chest x-ray negative - meropenem, micafungin, add vancomycin - f/u on CT abdomen and pelvis - cultures noted, bfc - jeff, blood cultures negative - monitor labs, leukocytosis and fevers resolved - blood cultures ordered 2. 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 3. Liver transplantation. 4. Sclerosing cholangitis. 5. Ulcerative colitis. 6. The patient is anemic. 7. History of cholecystectomy, appendectomy, hysterectomy, and proctocolectomy. 8. History of multiple abdominal operations. 9. Allergies to codeine, hydromorphone, metoclopramide, morphine, and sulfa. 10. Family doctor is Noncontributory. 11. Social history is negative. 12. MAR was noted. 13. Case discussed with RN. 14. Case discussed with the patient. 15. Continue treatment per Dr. Sotomayor and consultants. Subjective Constitutional: Reports: fever HEENT: Denies: congestion Respiratory: Denies: shortness of breath Cardiovascular: Denies: chest pain Gastrointestinal/Abdominal: Denies: nausea, vomiting, diarrhea Allergies: Coded Allergies: CODEINE (Verified Allergy, Severe, 12/17/18) Face contractions HYDROMORPHONE (Verified Allergy, Severe, Itching, 12/17/18) Itching whole body METOCLOPRAMIDE (Verified Allergy, Severe, 12/17/18) Face contractions MORPHINE (Verified Allergy, Severe, Shortness of Breath, 12/17/18) SULFA (SULFONAMIDE ANTIBIOTICS) (Verified Allergy, Severe, 12/17/18) Face contractions Objective Vital Signs Last 24 Hour Vital Signs Date Time Temp Pulse Resp B/P (MAP) Pulse Ox O2 Delivery O2 Flow Rate FiO2 01/18/19 12:00 98.5 99 19 141/77 (98) 98 01/18/19 09:00 Room Air 01/18/19 08:33 106 162/90 01/18/19 08:31 162/90 01/18/19 08:30 106 162/90 01/18/19 08:00 98.4 106 19 162/90 (114) 95 01/18/19 07:19 97 Room Air 21 01/18/19 04:00 99.6 104 16 147/75 (99) 95 01/18/19 00:00 100.6 106 16 135/75 (95) 96 01/17/19 21:54 100.3 01/17/19 21:00 Room Air 01/17/19 20:14 99 Nasal Cannula 2.0 28 01/17/19 20:00 100.9 118 18 144/86 (105) 96 01/17/19 17:51 106 138/89 01/17/19 15:41 100.5 106 18 138/89 (105) 96 Height (Feet): 5 Height (Inches): 3.00 Weight (Pounds): 135 General Appearance: no acute distress HEENT: normocephalic, atraumatic, anicteric Respiratory/Chest: lungs clear, normal breath sounds, no accessory muscle use, respiratory distress Cardiovascular: normal rate, regular rhythm, no gallop/murmur Objective CT scan abdomen and pelvis: IMPRESSION: Status post recent abdominal surgery with creation of a left lower quadrant Yajaira ileostomy. Good bowel and bag opacification with no evidence of bowel obstruction. Unusual, markedly distended unopacified loop of bowel in the pelvis. Although unopacified, this does not appear to be an abscess as there is a wall and other characteristics more in keeping with bowel. Would consider a large diverticulum or possibly remnant of the previous Kock pouch or part of the small bowel leading to the old pouch as those segments are sometimes quite distended. Status post liver transplant. Status post cholecystectomy. Mild basal atelectasis. Chest x-ray - no pna, report noted CT abdomen/pelvis - 12/30/18 - Impression: Postsurgical changes, as described Unusual tubular structure filled mostly with gas but also some fluid communicating with the small bowel at the site of a right lower quadrant enteroenterostomy. Uncertain as to whether this represents an unusual large diverticulum, a true extraluminal gas collection, or a portion of an old continent ileostomy pouch. This is also previously described Dilated proximal small bowel proximal to the enteroenterostomy with slow forward propulsion of contents. Partial small bowel obstruction not completely excludable although unlikely given evidence of forward propulsion of contrast and filling of the ileostomy on prior 12/26/2018 exam; findings most likely functional in nature. Correlate with clinical findings Small anterior pelvic and deep pelvic fluid pockets, most likely represent retained postoperative fluid collections. Abscess as etiology of any of these not completely excludable; correlation with clinical findings recommended Postsurgical changes of the liver status post transplantation Punctate nonobstructing bilateral intrarenal calculi Bilateral basilar pulmonary parenchymal atelectasis and/or scarring Chest x-ray - 01/07/19 - Images previously reviewed in person with Dr. Sotomayor Interval placement of a right transjugular central line, catheter tip in the region of the high right atrium. Left arm PICC line remains in place with the catheter tip at the cavoatrial junction. No evidence of pneumothorax. No definite focal airspace consolidation or pleural effusion. Surgical clips noted projecting over the upper abdomen. Microbiology Date/Time Source Procedure Growth Status 01/17/19 19:14 Indwelling Cath Urine Culture - Preliminary NO GROWTH Resulted Laboratory Tests Test 01/18/19 05:15 White Blood Count 7.2 K/UL (4.8-10.8) Red Blood Count 3.41 M/UL (4.20-5.40) L Hemoglobin 10.1 G/DL (12.0-16.0) L Hematocrit 30.5 % (37.0-47.0) L Mean Corpuscular Volume 89 FL (80-99) Mean Corpuscular Hemoglobin 29.6 PG (27.0-31.0) Mean Corpuscular Hemoglobin Concent 33.0 G/DL (32.0-36.0) Red Cell Distribution Width 13.4 % (11.6-14.8) Platelet Count 575 K/UL (150-450) H Mean Platelet Volume 5.9 FL (6.5-10.1) L Neutrophils (%) (Auto) 78.9 % (45.0-75.0) H Lymphocytes (%) (Auto) 8.2 % (20.0-45.0) L Monocytes (%) (Auto) 3.5 % (1.0-10.0) Eosinophils (%) (Auto) 8.5 % (0.0-3.0) H Basophils (%) (Auto) 1.0 % (0.0-2.0) Sodium Level 135 MMOL/L (136-145) L Potassium Level 4.5 MMOL/L (3.5-5.1) Chloride Level 103 MMOL/L (98-107) Carbon Dioxide Level 23 MMOL/L (21-32) Anion Gap 9 mmol/L (5-15) Blood Urea Nitrogen 27 mg/dL (7-18) H Creatinine 1.3 MG/DL (0.55-1.30) Estimat Glomerular Filtration Rate 40.9 mL/min (>60) Glucose Level 171 MG/DL (74-106) H Calcium Level 9.6 MG/DL (8.5-10.1) Magnesium Level 1.7 MG/DL (1.8-2.4) L Total Bilirubin 0.3 MG/DL (0.2-1.0) Aspartate Amino Transf (AST/SGOT) 35 U/L (15-37) Alanine Aminotransferase (ALT/SGPT) 41 U/L (12-78) Alkaline Phosphatase 408 U/L (46-116) H Total Protein 6.9 G/DL (6.4-8.2) Albumin 1.9 G/DL (3.4-5.0) L Globulin 5.0 g/dL Albumin/Globulin Ratio 0.4 (1.0-2.7) L Current Medications Medications (Trade) Dose Ordered Sig/Kajal Route PRN Reason Start Time Stop Time Status Last Admin Dose Admin Acetaminophen (Tylenol) 650 mg Q4H PRN ORAL Mild Pain/Temp > 100.2 01/12/19 13:30 01/25/19 13:29 01/17/19 21:24 Acetaminophen (Tylenol) 650 mg Q6H PRN ORAL headache 01/14/19 09:00 02/13/19 08:59 Al Hydroxide/Mg Hydroxide (Mylanta) 30 ml Q6H PRN ORAL dyspepsia 01/12/19 14:00 01/27/19 13:59 01/16/19 02:35 Amlodipine Besylate (Norvasc) 5 mg BID ORAL 01/12/19 18:00 02/02/19 08:59 01/18/19 08:33 Barium Sulfate (Readi-Cat 2) 450 ml NOW PRN ORAL Radiology Procedure 01/18/19 09:00 01/20/19 08:59 Clonidine HCl (Catapres Tab) 0.1 mg Q6H PRN SL SBP>150 mmHg 01/12/19 13:30 01/21/19 13:29 01/15/19 08:59 Dextrose 1,000 ml @ 0 mls/hr Q24H PRN IV PN interrupted or unavailable 01/18/19 20:00 01/25/19 19:59 Dextrose (Dextrose 50%) 25 ml Q30M PRN IV Hypoglycemia 01/12/19 13:45 01/21/19 12:44 Dextrose (Dextrose 50%) 50 ml Q30M PRN IV Hypoglycemia 01/12/19 13:45 01/21/19 12:44 Dextrose/ Electrolytes 1,000 ml @ 100 mls/hr Q10H IV 01/12/19 13:30 02/11/19 09:29 01/18/19 09:55 Diphenhydramine HCl (Benadryl) 50 mg Q4H PRN ORAL Itching 01/12/19 14:00 01/26/19 13:59 Fat Emulsion Intravenous 216 ml/Amino Acids/ Electrolytes/ Dextrose 1,776 ml @ 74 mls/hr Q24H IV 01/12/19 20:00 01/29/19 19:59 01/17/19 20:30 Fentanyl (Duragesic) 1 patch Q72H TDERMAL 01/15/19 09:00 01/22/19 08:59 01/18/19 08:43 Fentanyl Citrate (Sublimaze 100 mcg/2 mL) 8 mcg Q2H PRN SUBQ Breakthrough pain 01/16/19 22:15 01/23/19 22:14 01/16/19 22:31 Insulin Aspart (NovoLOG) Q6HR SUBQ 01/12/19 18:00 02/11/19 17:59 01/18/19 11:43 Levothyroxine Sodium (Synthroid) 100 mcg DAILY IV 01/13/19 09:00 02/04/19 08:59 01/18/19 08:29 Lidocaine HCl (Xylocaine Jelly 2%) 1 applic Q3H PRN TOPIC BURNING AROUND MEATUS 01/14/19 17:15 02/13/19 17:14 01/17/19 12:50 Lisinopril (Prinivil) 40 mg DAILY ORAL 01/13/19 09:00 01/30/19 08:59 01/18/19 08:31 Meropenem 1 gm/ Sodium Chloride 100 ml @ 200 mls/hr Q12HR@0600,1800 IVPB 01/17/19 18:00 01/22/19 17:59 01/18/19 05:02 Metoprolol Succinate (Toprol XL) 50 mg DAILY ORAL 01/13/19 09:00 01/23/19 08:59 01/18/19 08:30 Micafungin Sodium 100 mg/Sodium Chloride 110 ml @ 110 mls/hr Q24H IVPB 01/17/19 20:00 01/23/19 19:59 01/17/19 20:27 Miscellaneous Medication (fentaNYL Destruction) 1 ea Q72H MISC 01/15/19 08:59 02/11/19 08:58 01/18/19 08:37 Mycophenolate Mofetil (Cellcept) 750 mg Q12HR ORAL 01/12/19 21:00 01/24/19 08:59 01/18/19 08:31 Naloxone HCl (Narcan) 0.1 mg PRN IV Sedation scale 3 or 4 01/12/19 13:30 02/03/19 13:44 Ondansetron HCl (Zofran) 4 mg Q6H PRN IVP Nausea & Vomiting 01/18/19 10:00 01/26/19 09:59 Pantoprazole (Protonix) 40 mg DAILY IVP 01/13/19 09:00 01/25/19 08:59 01/18/19 08:33 Prochlorperazine (Compazine) 10 mg Q6H PRN IVP Nausea & Vomiting 01/17/19 14:00 01/24/19 19:59 01/18/19 10:36 Tacrolimus (Prograf) 1 mg DAILY ORAL 01/13/19 09:00 02/04/19 08:59 01/18/19 08:33 Tacrolimus (Prograf) 2 mg BEDTIME ORAL 01/18/19 21:00 01/22/19 20:59 Trazodone HCl (Desyrel) 25 mg HSPRN PRN ORAL INSOMNIA 01/12/19 20:00 02/03/19 19:59 01/18/19 01:00 Vancomycin HCl (Vanco rx to dose) 1 ea DAILY PRN MISC Per rx protocol 01/18/19 13:00 02/17/19 12:59 Vancomycin/Sodium Chloride 275 ml @ 183.333 mls/hr ONCE ONCE IVPB 01/18/19 14:30 01/18/19 15:59 Philly Shelby MD Jan 18, 2019 13:31
[2019-01-18] MEDS ORDERED: Vancomycin 1.25gm/NS Premix IVPB ONE (14:30)
--- NOTE | 2019-01-18 14:38 | Cardiology Progress Note ---
Assessment/Plan Status Narrative 1. Malfunctioning Kock pouch continent ileostomy. 2. History of ulcerative colitis. 3. History of primary sclerosing cholangitis. 4. Status post multiple abdominal operations. 4.1. Appendectomy in 1964. 4.2. Proctocolectomy and Kock pouch in 1978. 4.3. Total abdominal hysterectomy and bilateral salpingo-oophorectomy 1983 4.4. Cholecystectomy in 1985. 4.5. Orthotopic liver transplantation in 1999. 4.6. Revision of Kock pouch and repair of fistula in 2010. HTN- New onset- Controlled on Norvasc /Lisinopril and Metoprolol Tachycardia- improved with IV Fluids and Beta Blockers. Renal insuff- Most probably due volume depletion ( High GT output), possibly due to Toradal- Creat 1.2 Volume depletion- high GT output- I/Os negative CT Scan done today- results pending Assessment/Plan Metoprolol 25 mg QD Zestril 40 mg QD. Norvasc 5 mg BID Monitor BP as absorption is probably not adequate NS Bolus 250x 2 today IV Fluids at 100 cch Repeat labs in AM. Encouraged increased ambulation. Awaiting CT scan results. Discussed with RN. Subjective Cardiovascular: Reports: no symptoms Respiratory: Reports: no symptoms Gastrointestinal/Abdominal: Reports: abdomen distended Genitourinary: Reports: no symptoms Subjective Still NPO Had N/V x1 - small amount Having more out put from ileostomy Has been out of bed, ambulated. Pain controlled Creat 1.3 Still on TPN High output from GT Had CT abd with oral contrast via GT. Objective Last 24 Hour Vital Signs Date Time Temp Pulse Resp B/P (MAP) Pulse Ox O2 Delivery O2 Flow Rate FiO2 01/18/19 12:00 98.5 99 19 141/77 (98) 98 01/18/19 09:00 Room Air 01/18/19 08:33 106 162/90 01/18/19 08:31 162/90 01/18/19 08:30 106 162/90 01/18/19 08:00 98.4 106 19 162/90 (114) 95 01/18/19 07:19 97 Room Air 21 01/18/19 04:00 99.6 104 16 147/75 (99) 95 01/18/19 00:00 100.6 106 16 135/75 (95) 96 01/17/19 21:54 100.3 01/17/19 21:00 Room Air 01/17/19 20:14 99 Nasal Cannula 2.0 28 01/17/19 20:00 100.9 118 18 144/86 (105) 96 01/17/19 17:51 106 138/89 01/17/19 15:41 100.5 106 18 138/89 (105) 96 General Appearance: no apparent distress, alert Neck: supple Cardiovascular: normal rate, regular rhythm, no gallop/murmur Respiratory/Chest: lungs clear, normal breath sounds Abdomen: non tender, no mass, hypoactive bowel sounds, distended Extremities: non-tender, no calf tenderness, no swelling Intake and Output 01/17/19 01/18/19 19:00 07:00 Intake Total 2114 ml 2088 ml Output Total 2106 ml 1310 ml Balance 8 ml 778 ml Intake Oral 100 ml IV Total 2014 ml 2088 ml Output Urine Total 1275 ml 950 ml Emesis 130 ml 300 ml Drainage Total 20 ml 20 ml Other 681 ml 40 ml Laboratory Tests Test 01/18/19 05:15 White Blood Count 7.2 K/UL (4.8-10.8) Red Blood Count 3.41 M/UL (4.20-5.40) L Hemoglobin 10.1 G/DL (12.0-16.0) L Hematocrit 30.5 % (37.0-47.0) L Mean Corpuscular Volume 89 FL (80-99) Mean Corpuscular Hemoglobin 29.6 PG (27.0-31.0) Mean Corpuscular Hemoglobin Concent 33.0 G/DL (32.0-36.0) Red Cell Distribution Width 13.4 % (11.6-14.8) Platelet Count 575 K/UL (150-450) H Mean Platelet Volume 5.9 FL (6.5-10.1) L Neutrophils (%) (Auto) 78.9 % (45.0-75.0) H Lymphocytes (%) (Auto) 8.2 % (20.0-45.0) L Monocytes (%) (Auto) 3.5 % (1.0-10.0) Eosinophils (%) (Auto) 8.5 % (0.0-3.0) H Basophils (%) (Auto) 1.0 % (0.0-2.0) Sodium Level 135 MMOL/L (136-145) L Potassium Level 4.5 MMOL/L (3.5-5.1) Chloride Level 103 MMOL/L (98-107) Carbon Dioxide Level 23 MMOL/L (21-32) Anion Gap 9 mmol/L (5-15) Blood Urea Nitrogen 27 mg/dL (7-18) H Creatinine 1.3 MG/DL (0.55-1.30) Estimat Glomerular Filtration Rate 40.9 mL/min (>60) Glucose Level 171 MG/DL (74-106) H Calcium Level 9.6 MG/DL (8.5-10.1) Magnesium Level 1.7 MG/DL (1.8-2.4) L Total Bilirubin 0.3 MG/DL (0.2-1.0) Aspartate Amino Transf (AST/SGOT) 35 U/L (15-37) Alanine Aminotransferase (ALT/SGPT) 41 U/L (12-78) Alkaline Phosphatase 408 U/L (46-116) H Total Protein 6.9 G/DL (6.4-8.2) Albumin 1.9 G/DL (3.4-5.0) L Globulin 5.0 g/dL Albumin/Globulin Ratio 0.4 (1.0-2.7) L Microbiology Date/Time Source Procedure Growth Status 01/17/19 19:14 Indwelling Cath Urine Culture - Preliminary NO GROWTH Resulted Micha Ziegler MD Jan 18, 2019 14:38
--- NOTE | 2019-01-18 15:01 | Diagnostic Imaging Report ---
EXAM: CT Abdomen and Pelvis With Intravenous Contrast CLINICAL HISTORY: VOMITING TECHNIQUE: Axial computed tomography images of the abdomen and pelvis with intravenous contrast. CTDI is 45.6 mGy and DLP is 2574.7 mGy-cm. One or more of the following dose reduction techniques were used: automated exposure control, adjustment of the mA and or kV according to patient size, use of iterative reconstruction technique. COMPARISON: CT abdomen and pelvis, 9 10 19 FINDINGS: Lung bases: Coronary artery disease. Bibasilar lung atelectasis airspace disease. ABDOMEN: Liver: History of prior liver transplant. Gallbladder and bile ducts: Cholecystectomy. No ductal dilation. Pancreas: Unremarkable. No mass. No ductal dilation. Spleen: Unremarkable. No splenomegaly. Adrenals: Unremarkable. No mass. Kidneys and ureters: Tiny bilateral nonobstructive renal stones. No ureteral stone or renal obstruction. Stomach and bowel: Percutaneous gastrostomy tube. Surgical clips near the GE junction. Evidence of total colectomy. Right lower abdominal wall ostomy is new since prior study. Previously seen left lower quadrant ostomy has been taken down. Prominent proximal duodenum narrowing between the SMA and aorta. Large duodenal diverticulum midportion of the fourth portion of the duodenum. Left lower abdominal wall percutaneous drainage catheter with tip in the right anterior lower abdomen. There is 3.6 x 6 cm fluid collection in the anterior lower pelvis and another loculated 2.8 x 3 cm collection to the right, likely connecting. There are surgical clips associated with the fluid collections and this may be unopacified patulous small bowel, limited as the oral contrast has not reached the distal small bowel loops. PELVIS: Appendix: See above. Bladder: Pickett catheter in the bladder. Reproductive: Uterus absent. Subperitoneal space: Surgical clips in the presacral region. ABDOMEN and PELVIS: Intraperitoneal space: Smaller loculated fluid with small air bubbles in the pelvis, likely recent postop changes, cannot exclude fistula. Bones joints: No acute fracture. No dislocation. Soft tissues: Anterior abdominal wall vertical incision with small fluid along the incision in the subcutaneous soft tissue. Vasculature: See above. Lymph nodes: Unremarkable. No enlarged lymph nodes. IMPRESSION: 1. Evidence of total colectomy. Right lower abdominal wall ostomy is new since prior study. Previously seen left lower quadrant ostomy has been taken down. 2. Prominent proximal duodenum narrowing between the SMA and aorta. Query SMA syndrome. 3. Left lower abdominal wall percutaneous drainage catheter with tip in the right anterior lower abdomen. There is 3.6 x 6 cm fluid collection in the anterior lower pelvis and another loculated 2.8 x 3 cm collection to the right, likely connecting. There are surgical clips associated with the fluid collections and this may be unopacified patulous small bowel, limited as the oral contrast has not reached the distal small bowel loops. Consider delayed imaging. 4. Smaller loculated fluid with small air bubbles in the pelvis, likely due to recent postop changes, cannot exclude fistula or leak. 5. Anterior abdominal wall vertical incision with small fluid along the incision in the subcutaneous soft tissue. 6. Percutaneous gastrostomy tube. 7. Tiny bilateral nonobstructive renal stones. No ureteral stone or renal obstruction.
--- NOTE | 2019-01-18 15:30 | NUR ---
NURSE NOTES: Read CT A/P results to Dr. Sotomayor; per Dr. Sotomayor, informed pt about fluid collection and about him following up tomorrow morning with radiologist to discuss how to proceed re: fluid collection. Pt verbalized understanding. Will continue to monitor.
[2019-01-18] MEDS ORDERED: Tubing IV Secondary IV ONE (15:34)
[2019-01-18] MEDS ORDERED: NS 275ml ONE ×2 (15:34→15:38)
[2019-01-18] MEDS ORDERED: NS 500ML ONE (15:38)
[2019-01-18 16:00] VITALS: BP 141/77
[2019-01-18] MEDS ORDERED: NS 250 ML IVPB ONE (17:00)
--- NOTE | 2019-01-18 19:30 | NUR ---
NURSE NOTES: Receive a report from PATRICK Menon. Round is done. Pt is awake and alert, orientation x 4. Abdominal pain 2/10 with Fentanyl patch on. Pt states that Fentanyl patch gives her groggy feeling. Explain that fentanyl patch would be temporarily pain control. Will continue to monitor of pain level q 4hrs. PICC is on MARILY with running TPN and IV fluid. G- Addendum: 01/18/19 at 1956 by John Chauhan RN Continue..... On NPO except ice chips and medication. Gastrostomy is connecting to wall suction of moderate and intermittent power. Watery dark greenish drainage via Conventional [place] Ileostomy on right abdomen. Op site dressing remains dry and clean. Pickett catheter is patent with yellowish urine without hematuria or sediments. No chilling or febrile sensation. Call light within reach. Will continue to monitor.
--- NOTE | 2019-01-18 19:36 | NUR ---
HAND-OFF: Report given to PATRICK Lopez.
[2019-01-18 20:00] VITALS: BP 143/83
[2019-01-18] MEDS ORDERED: Dextrose 10% 1,000 ML IV PRN (20:00)
[2019-01-18] MEDS: Fat Emulsion Iv 20% 216 ML in Tpn 1,560 ML IV SCH (20:33)
[2019-01-18] MEDS: Micafungin 100 MG in NS 110 ML IVPB SCH (20:35)
[2019-01-18] MEDS ORDERED: Dyna-Hex 2% Top Sol 2oz TOPIC SCH (20:45)
--- NOTE | 2019-01-18 21:00 | NUR ---
NURSE NOTES: Noted coughing while drinking water for oral medication. Keep high-Carlin's position while taking medication and reinforce to take small amount of water slowly. Will continue to monitor.
[2019-01-19] VITALS (7 sets, daily range): BP systolic 132–153; BP diastolic 71–90
--- NOTE | 2019-01-19 | NUR ---
NURSE NOTES: Pt is asleep after sleeping pill. No acute distress/ respiratory distress noted. No chilling or febrile sensation noted. Gastrostomy is connected to suction with turbid yellowish gastric juice. Will continue to monitor.
[2019-01-19] MEDS: NovoLOG Insulin Flexpen SUBQ SCH ×2 (00:25→05:45)
[2019-01-19] MEDS: D5 1/2NS w/KCl 40meq 1000ml 1,000 ML IV SCH (04:57)
--- NOTE | 2019-01-19 06:00 | NUR ---
NURSE NOTES: Denies pain. No chilling or febrile sensation noted. Pt goes back to sleep. No acute distress or respiratory distress noted. Will continue to monitor. 12hrs output 1) Gastrostomy: 880ml 2) Ileostomy: 40 thick dark green 3) HAROLDO: 20ml serous 4) Pickett catheter: 1050ml yellow
[2019-01-19 06:34] LABS: BASOPHILS % (AUTO) 1.2 % (0.0-2.0); HEMATOCRIT 29.6 % (37.0-47.0); HEMOGLOBIN 9.8 G/DL (12.0-16.0); LYMPHOCYTES % (AUTO) 15.7 % (20.0-45.0); MEAN CORPUSCULAR VOLUME 89 FL (80-99); MONOCYTES % (AUTO) 5.5 % (1.0-10.0); NEUTROPHILS % (AUTO) 60.5 % (45.0-75.0); PLATELET COUNT 580 K/UL (150-450); RED BLOOD COUNT 3.32 M/UL (4.20-5.40); RED CELL DISTRIBUTION WIDTH 13.7 % (11.6-14.8); WHITE BLOOD COUNT 7.3 K/UL (4.8-10.8)
[2019-01-19 06:53] LABS: ALANINE AMINOTRANSFERASE 38 U/L (12-78); ALBUMIN 1.8 G/DL (3.4-5.0); ALBUMIN/GLOBULIN RATIO 0.4 (1.0-2.7); ALKALINE PHOSPHATASE 384 U/L (46-116); ANION GAP 8 mmol/L (5-15); ASPARTATE AMINO TRANSFERASE 29 U/L (15-37); BILIRUBIN,TOTAL 0.2 MG/DL (0.2-1.0); BLOOD UREA NITROGEN 26 mg/dL (7-18); CALCIUM 9.6 MG/DL (8.5-10.1); CARBON DIOXIDE 23 MMOL/L (21-32); CHLORIDE 103 MMOL/L (98-107); CREATININE 1.2 MG/DL (0.55-1.30); POTASSIUM 4.6 MMOL/L (3.5-5.1); SODIUM 134 MMOL/L (136-145)
--- NOTE | 2019-01-19 07:30 | NUR ---
HAND-OFF: Report given to PATRICK Maria. Round is done. Pain is 2/10. No acute distress noted.
--- NOTE | 2019-01-19 07:35 | NUR ---
NURSE NOTES: Received report from PATRICK Lopez. Rounding done with outgoing nurse. Pt a/o x 4, in bed. Pt mentioned abd pain as 2/10. Rt ileostomy bag is in placed. GT is on moderate intermittent suction setting. Pickett is patent, yellowish color noted. Abd surgical site dressing is C/D/I. MARILY PICC line dressing is C/D/I. Bed in lowest position, call light within reach. Will continue to monitor.
--- NOTE | 2019-01-19 08:22 | NUR ---
NURSE NOTES: Dr. Shelby called he said PICC line has to be removed. Will notify Dr. Sotomayor.
--- NOTE | 2019-01-19 08:24 | NUR ---
NURSE NOTES: Called Dr. Sotomayor and left the message regarding PICC line.
--- NOTE | 2019-01-19 08:35 | NUR ---
NURSE NOTES: Dr. Sotomayor called and ordered insert peripheral IV stat and removed PICC line. Start D10W with KCl 20meq @150ml/hr and DC TPN. Order read back and will put the order.
--- NOTE | 2019-01-19 08:58 | NUR ---
NURSE NOTES: Dr. Shelby called and ordered Cefepime 2gm IVPB Q12hrs, Flagyl 500mg IVPB Q8, D/C Meropenem. Noted and carried out.
--- NOTE | 2019-01-19 09:01 | General Progress Note ---
Progress Note Progress Note Afebrile x 24 hours. Blood cultures growing budding yeast. Peripheral IV started with D10W and will remove left arm PICC now and hold TPN. CT scan revealed some intraabdominal small fluid collections, not obvious abscess, consistent with post-op changes. No evidence for SMA syndrome per staff Radiologist Abdomen soft, incisions clean, ileostomy stoma stable, well formed Urine 2625 Gastrostomy 1925 (but no emesis past 24 hours) Ileostomy 70cc only (despite po contrast for CT scan) HAROLDO drain 45 serous CBC okay/stable BUN 26 Cr down 1.2 Mg 2 Imp: Fungemia Poor gastric emptying (allergy to Reglan) Plan: Peripheral IV and remove PICC Trial of gastrostomy off suction x 2 hours and on x 2 hours until hs then suction overnight Hold TPN Discussed with ID and GI Lars Sotomayor MD Jan 19, 2019 09:01
[2019-01-19] MEDS: Mycophenolate 250mg cap ORAL SCH ×2 (09:21→20:10)
[2019-01-19] MEDS: Metoprolol Succinate XL 50mg tab ORAL SCH (09:22)
[2019-01-19] MEDS: Lisinopril 20mg tab ORAL SCH (09:22)
[2019-01-19] MEDS: Pantoprazole Inj IVP SCH (09:22)
--- NOTE | 2019-01-19 09:46 | NUR ---
NURSE NOTES: Spoke to regarding blood sugar checking and new order received. Order read back and carried out.
[2019-01-19] MEDS ORDERED: Dextrose 10% 1,000 ML IV SCH (10:00)
--- NOTE | 2019-01-19 11:10 | NUR ---
NURSE NOTES: Patient ambulated hallway x 2 with PT assistance. No discomfort noted.
--- NOTE | 2019-01-19 11:18 | GI Progress Note ---
Assessment/Plan Problems: (1) Malfunctioning Kock Pouch (2) History of liver transplant ICD Codes: Z94.4 - Liver transplant status SNOMED: [id number] Status: unchanged Status Narrative Discussed with Dr. Dozier. Assessment/Plan fu LFTs>>> stable now off TPN cellcept 750 BID prograft 3 gm per day monitor for Lyte protonix abx per ID GT to suction cont compazine and Zofran supportive care will fu The patient was seen and examined at bedside and all new and available data was reviewed in the patients chart. I agree with the above findings, impression and plan. (Patient seen earlier today. Signature stamp does not reflect patient encounter time.). - Max Dozier MD Subjective Gastrointestinal/Abdominal: Reports: no symptoms Objective Last 24 Hour Vital Signs Date Time Temp Pulse Resp B/P (MAP) Pulse Ox O2 Delivery O2 Flow Rate FiO2 01/19/19 09:22 97 153/78 01/19/19 09:22 153/78 01/19/19 09:22 97 153/78 01/19/19 09:00 Room Air 01/19/19 08:00 97.8 97 18 153/78 (103) 96 01/19/19 04:52 98.1 99 18 142/78 (99) 96 01/19/19 00:00 97.6 97 20 132/90 (104) 97 01/18/19 21:02 98 Room Air 21 01/18/19 21:00 Room Air 01/18/19 20:00 98.3 100 18 143/83 (103) 98 01/18/19 18:03 108 141/77 01/18/19 16:00 98.9 108 19 141/77 (98) 100 01/18/19 12:00 98.5 99 19 141/77 (98) 98 Intake and Output 01/18/19 01/19/19 19:00 07:00 Intake Total 2228.666 ml 2684 ml Output Total 2675 ml 2830 ml Balance -446.334 ml -146 ml Intake Oral 120 ml 100 ml IV Total 2108.666 ml 2584 ml Output Urine Total 1575 ml 1050 ml Gastric Drainage Total 880 ml Drainage Total 25 ml 20 ml Other 1075 ml 880 ml Laboratory Tests Test 01/19/19 05:05 White Blood Count 7.3 K/UL (4.8-10.8) Red Blood Count 3.32 M/UL (4.20-5.40) L Hemoglobin 9.8 G/DL (12.0-16.0) L Hematocrit 29.6 % (37.0-47.0) L Mean Corpuscular Volume 89 FL (80-99) Mean Corpuscular Hemoglobin 29.5 PG (27.0-31.0) Mean Corpuscular Hemoglobin Concent 32.9 G/DL (32.0-36.0) Red Cell Distribution Width 13.7 % (11.6-14.8) Platelet Count 580 K/UL (150-450) H Mean Platelet Volume 5.9 FL (6.5-10.1) L Neutrophils (%) (Auto) 60.5 % (45.0-75.0) Lymphocytes (%) (Auto) 15.7 % (20.0-45.0) L Monocytes (%) (Auto) 5.5 % (1.0-10.0) Eosinophils (%) (Auto) 17.0 % (0.0-3.0) H Basophils (%) (Auto) 1.2 % (0.0-2.0) Sodium Level 134 MMOL/L (136-145) L Potassium Level 4.6 MMOL/L (3.5-5.1) Chloride Level 103 MMOL/L (98-107) Carbon Dioxide Level 23 MMOL/L (21-32) Anion Gap 8 mmol/L (5-15) Blood Urea Nitrogen 26 mg/dL (7-18) H Creatinine 1.2 MG/DL (0.55-1.30) Estimat Glomerular Filtration Rate 44.8 mL/min (>60) Glucose Level 152 MG/DL (74-106) H Calcium Level 9.6 MG/DL (8.5-10.1) Magnesium Level 2.0 MG/DL (1.8-2.4) Total Bilirubin 0.2 MG/DL (0.2-1.0) Aspartate Amino Transf (AST/SGOT) 29 U/L (15-37) Alanine Aminotransferase (ALT/SGPT) 38 U/L (12-78) Alkaline Phosphatase 384 U/L (46-116) H Total Protein 6.7 G/DL (6.4-8.2) Albumin 1.8 G/DL (3.4-5.0) L Globulin 4.9 g/dL Albumin/Globulin Ratio 0.4 (1.0-2.7) L Height (Feet): 5 Height (Inches): 3.00 Weight (Pounds): 135 General Appearance: WD/WN, no apparent distress, alert Cardiovascular: normal rate Respiratory/Chest: normal breath sounds, no respiratory distress Abdominal Exam: normal bowel sounds, non tender, soft Extremities: non-tender Jeyson Luna NP Jan 19, 2019 11:18
--- NOTE | 2019-01-19 11:51 | NUR ---
CASE MANAGEMENT:REVIEW 01/17/19 SI: POD #30...S/P RESECTION OF FAILED KOCJ POUCH POD#13...EXPL LAP W/SMALL BOWEL RESECTION AND RELOCATION OF ILEOSTOMY POD #10...S/P REPAIR OF STAPLE LINE DEHISCENCE POD #8...S/P REMOVE WOUND VAC. REPAIR BOWEL LEAK.ABDOMINAL WALL CLOSURE T~100.5 HR~106 RR~18 BP~138/89 96% ON RA H/H-10.3/31.2 BUN+28 IS: TPN/IL @ 74/HR IV MICAFUNGIN Q24 IV MEROPENEM Q12 CELLCEPT PO Q12 PROGRAF PO QHS LIDOCAINE PATCH NORVASC PO BID IV SYNTHROID QD LISINOPRIL PO QD TOPROL XL NG QD : MED/SURG STATUS 3 [facility] PLAN: EMESIS DESPITE SUCTION CATHETER......CONTINUE NPO, TPN, DO MONITOR HAROLDO DRAIN OUTPUT 01/18/19 SI: POD #31...S/P RESECTION OF FAILED KOCJ POUCH POD#14...EXPL LAP W/SMALL BOWEL RESECTION AND RELOCATION OF ILEOSTOMY POD #11...S/P REPAIR OF STAPLE LINE DEHISCENCE POD #9...S/P REMOVE WOUND VAC. REPAIR BOWEL LEAK.ABDOMINAL WALL CLOSURE T~99.6 HR 104 RR 16 BP 147/75 95% ON RA H/H-10.1/3 BUN+27 ALB-1.9 MAG-1.7 IS: TPN/IL @ 74/HR IV MICAFUNGIN Q24 IV MEROPENEM Q12 CELLCEPT PO Q12 PROGRAF PO QHS LIDOCAINE PATCH NORVASC PO BID IV SYNTHROID QD LISINOPRIL PO QD TOPROL XL NG QD : MED/SURG STATUS 3 [facility] PLAN: BLOOD CX STAT CT ABD/PELVIS CONTINUE NPO, TPN, DO MONITOR HAROLDO DRAIN OUTPUT 01/19/19 SI: POD #32...S/P RESECTION OF FAILED KOCJ POUCH POD#15...EXPL LAP W/SMALL BOWEL RESECTION AND RELOCATION OF ILEOSTOMY POD #12...S/P REPAIR OF STAPLE LINE DEHISCENCE POD #10...S/P REMOVE WOUND VAC. REPAIR BOWEL LEAK.ABDOMINAL WALL CLOSURE 97.8 97 18 153/78 96% ON RA IS: IV MICAFUNGIN Q24 IV MEROPENEM Q12 CELLCEPT PO Q12 PROGRAF PO QHS LIDOCAINE PATCH NORVASC PO BID IV SYNTHROID QD LISINOPRIL PO QD TOPROL XL NG QD : MED/SURG STATUS 3 [facility] PLAN: BLOOD CX STAT CT ABD/PELVIS MONITOR HAORLDO DRAIN OUTPUT HOLD TPN/IL
[2019-01-19] MEDS ORDERED: Vancomycin 1gm/D5W 275ml IVPB SCH ×2 (12:00)
--- NOTE | 2019-01-19 12:27 | NUR ---
RD ASSESSMENT & RECOMMENDATIONS SEE CARE ACTIVITY FOR COMPLETE ASSESSMENT DAILY ESTIMATED NEEDS: Needs based on Surgery 61kg 25-30 kcals/kg 4770-0058 total kcals 1-2 g protein/kg 61-122 g total protein 25-30 mL/kg 1074-6163 total fluid mLs NUTRITION DIAGNOSIS: Altered GI fxn r/t h/o UC and malfunctioning kock pouch as evidenced by pt is s/p kock pouch takedown w/ creation of Yajaira ileo, now s/p ex lap, segmental small bowel resections and relocation of ileostomy, back to NPO, TPN on hold at this time, s/p PICC line removal. CURRENT DIET:NPO PO DIET RECOMMENDATIONS: Diet per MD PARENTERAL NUTRITION RECOMMENDATIONS: D/AA Rate: 65 IL Rate: 9 Total Rate: 74 Volume: 1776 % Dextrose: 18 % AA: 5.5 Energy (kcals/kg): 1730 Protein (g/kg protein): 86 Nonprotein KCALS: 1386 GIR (mg CHO/kg/min): 3.2 % Fat KCALS: 25 NCP: N Ratio: 101:1 TPN Comment: - When able to resume TPN: rec D18% + AA 5.5% @65ml/hr + 20% IL @9ml/hr - TPN at goal meets 100% est kcal/prot needs (28 kcal/kg and 1.4g prot/kg) ADDITIONAL RECOMMENDATIONS: 1) Obtain a standing weight as pt is able to ambulate in halls 2) Monitor NPO status -> monitor for ability to resume TPN vs initiate PPN 3) Monitor lytes, replete as needed . . .
[2019-01-19] MEDS: Vancomycin 1gm/D5W 275ml IVPB SCH ×2 (14:42)
--- NOTE | 2019-01-19 15:16 | Infectious Diseases Prog Note ---
Assessment/Plan Assessment/Plan ASSESSMENT AND PLAN: 1. leukocytosis, fevers, ? sepsis, possible intra-abdominal infection/early sbo , s/p exploratory laparotomy and small bowel segmental resection, fungemia risk with hx of tpn and abx, + picc line s/p surgery for post-operative leak - 01/07/19, bfc with jeff albicans fungemia, high possibility for line infection, fungal uti, fevers, intra- abdominal fluid collection, post-operative changes > abscess per surgery note - meropenem, vancomycin and micafungin - picc line removed - CT abdomen and pelvis - management per surgery - cultures noted, bfc - jeff, blood cultures negative - monitor labs, leukocytosis and fevers resolved - surveillance blood cultures in 48 hrs 2. 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 3. Liver transplantation. 4. Sclerosing cholangitis. 5. Ulcerative colitis. 6. The patient is anemic. 7. History of cholecystectomy, appendectomy, hysterectomy, and proctocolectomy. 8. History of multiple abdominal operations. 9. Allergies to codeine, hydromorphone, metoclopramide, morphine, and sulfa. 10. Family doctor is Noncontributory. 11. Social history is negative. 12. MAR was noted. 13. Case discussed with RN. 14. Case discussed with the patient. 15. Continue treatment per Dr. Sotomayor and consultants. Subjective Constitutional: Reports: fever - fevers better today , fatigue HEENT: Denies: congestion Respiratory: Denies: shortness of breath Gastrointestinal/Abdominal: Denies: nausea, vomiting, diarrhea Genitourinary: Reports: other Neurologic: Denies: headache Psychiatric: Denies: depression Skin: Denies: rash Hematologic: Denies: bleeding Musculoskeletal: Reports: pain - controlled Allergies: Coded Allergies: CODEINE (Verified Allergy, Severe, 12/17/18) Face contractions HYDROMORPHONE (Verified Allergy, Severe, Itching, 12/17/18) Itching whole body METOCLOPRAMIDE (Verified Allergy, Severe, 12/17/18) Face contractions MORPHINE (Verified Allergy, Severe, Shortness of Breath, 12/17/18) SULFA (SULFONAMIDE ANTIBIOTICS) (Verified Allergy, Severe, 12/17/18) Face contractions Objective Vital Signs Last 24 Hour Vital Signs Date Time Temp Pulse Resp B/P (MAP) Pulse Ox O2 Delivery O2 Flow Rate FiO2 01/19/19 12:00 98.1 90 18 132/74 (93) 98 01/19/19 09:22 97 153/78 01/19/19 09:22 153/78 01/19/19 09:22 97 153/78 01/19/19 09:00 Room Air 01/19/19 08:00 97.8 97 18 153/78 (103) 96 01/19/19 04:52 98.1 99 18 142/78 (99) 96 01/19/19 00:00 97.6 97 20 132/90 (104) 97 01/18/19 21:02 98 Room Air 21 01/18/19 21:00 Room Air 01/18/19 20:00 98.3 100 18 143/83 (103) 98 01/18/19 18:03 108 141/77 01/18/19 16:00 98.9 108 19 141/77 (98) 100 Height (Feet): 5 Height (Inches): 3.00 Weight (Pounds): 135 General Appearance: no acute distress HEENT: normocephalic, atraumatic, anicteric Respiratory/Chest: lungs clear, normal breath sounds, no respiratory distress, no accessory muscle use Cardiovascular: normal rate, regular rhythm, no gallop/murmur, no JVD Abdomen: normal bowel sounds, soft, non tender, no organomegaly, non distended Genitourinary: other - + morales Extremities: no cyanosis Skin: no rash 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 Evidence of total colectomy. Right lower abdominal wall ostomy is new since prior study. Previously seen left lower quadrant ostomy has been taken down. 2. Prominent proximal duodenum narrowing between the SMA and aorta. Query SMA syndrome. 3. Left lower abdominal wall percutaneous drainage catheter with tip in the right anterior lower abdomen. There is 3.6 x 6 cm fluid collection in the anterior lower pelvis and another loculated 2.8 x 3 cm collection to the right, likely connecting. There are surgical clips associated with the fluid collections and this may be unopacified patulous small bowel, limited as the oral contrast has not reached the distal small bowel loops. Consider delayed imaging. 4. Smaller loculated fluid with small air bubbles in the pelvis, likely due to recent postop changes, cannot exclude fistula or leak. 5. Anterior abdominal wall vertical incision with small fluid along the incision in the subcutaneous soft tissue. 6. Percutaneous gastrostomy tube. 7. Tiny bilateral nonobstructive renal stones. No ureteral stone or renal obstruction. CT abdomen and pelvis - 12/26/18 - Status post recent abdominal surgery with creation of a left lower quadrant Yajaira ileostomy. Good bowel and bag opacification with no evidence of bowel obstruction. Unusual, markedly distended unopacified loop of bowel in the pelvis. Although unopacified, this does not appear to be an abscess as there is a wall and other characteristics more in keeping with bowel. Would consider a large diverticulum or possibly remnant of the previous Kock pouch or part of the small bowel leading to the old pouch as those segments are sometimes quite distended. Status post liver transplant. Status post cholecystectomy. Mild basal atelectasis. Chest x-ray - no pna, report noted CT abdomen/pelvis - 12/30/18 - Impression: Postsurgical changes, as described Unusual tubular structure filled mostly with gas but also some fluid communicating with the small bowel at the site of a right lower quadrant enteroenterostomy. Uncertain as to whether this represents an unusual large diverticulum, a true extraluminal gas collection, or a portion of an old continent ileostomy pouch. This is also previously described Dilated proximal small bowel proximal to the enteroenterostomy with slow forward propulsion of contents. Partial small bowel obstruction not completely excludable although unlikely given evidence of forward propulsion of contrast and filling of the ileostomy on prior 12/26/2018 exam; findings most likely functional in nature. Correlate with clinical findings Small anterior pelvic and deep pelvic fluid pockets, most likely represent retained postoperative fluid collections. Abscess as etiology of any of these not completely excludable; correlation with clinical findings recommended Postsurgical changes of the liver status post transplantation Punctate nonobstructing bilateral intrarenal calculi Bilateral basilar pulmonary parenchymal atelectasis and/or scarring Chest x-ray - 01/07/19 - Images previously reviewed in person with Dr. Sotomayor Interval placement of a right transjugular central line, catheter tip in the region of the high right atrium. Left arm PICC line remains in place with the catheter tip at the cavoatrial junction. No evidence of pneumothorax. No definite focal airspace consolidation or pleural effusion. Surgical clips noted projecting over the upper abdomen. Microbiology Date/Time Source Procedure Growth Status 01/17/19 17:35 Blood Blood Culture - Preliminary Resulted 01/17/19 17:25 Blood Blood Culture - Preliminary Resulted 01/17/19 19:14 Indwelling Cath Urine Culture - Preliminary Yeast Species Resulted Laboratory Tests Test 01/19/19 05:05 White Blood Count 7.3 K/UL (4.8-10.8) Red Blood Count 3.32 M/UL (4.20-5.40) L Hemoglobin 9.8 G/DL (12.0-16.0) L Hematocrit 29.6 % (37.0-47.0) L Mean Corpuscular Volume 89 FL (80-99) Mean Corpuscular Hemoglobin 29.5 PG (27.0-31.0) Mean Corpuscular Hemoglobin Concent 32.9 G/DL (32.0-36.0) Red Cell Distribution Width 13.7 % (11.6-14.8) Platelet Count 580 K/UL (150-450) H Mean Platelet Volume 5.9 FL (6.5-10.1) L Neutrophils (%) (Auto) 60.5 % (45.0-75.0) Lymphocytes (%) (Auto) 15.7 % (20.0-45.0) L Monocytes (%) (Auto) 5.5 % (1.0-10.0) Eosinophils (%) (Auto) 17.0 % (0.0-3.0) H Basophils (%) (Auto) 1.2 % (0.0-2.0) Sodium Level 134 MMOL/L (136-145) L Potassium Level 4.6 MMOL/L (3.5-5.1) Chloride Level 103 MMOL/L (98-107) Carbon Dioxide Level 23 MMOL/L (21-32) Anion Gap 8 mmol/L (5-15) Blood Urea Nitrogen 26 mg/dL (7-18) H Creatinine 1.2 MG/DL (0.55-1.30) Estimat Glomerular Filtration Rate 44.8 mL/min (>60) Glucose Level 152 MG/DL (74-106) H Calcium Level 9.6 MG/DL (8.5-10.1) Magnesium Level 2.0 MG/DL (1.8-2.4) Total Bilirubin 0.2 MG/DL (0.2-1.0) Aspartate Amino Transf (AST/SGOT) 29 U/L (15-37) Alanine Aminotransferase (ALT/SGPT) 38 U/L (12-78) Alkaline Phosphatase 384 U/L (46-116) H Total Protein 6.7 G/DL (6.4-8.2) Albumin 1.8 G/DL (3.4-5.0) L Globulin 4.9 g/dL Albumin/Globulin Ratio 0.4 (1.0-2.7) L Current Medications Medications (Trade) Dose Ordered Sig/Kajal Route PRN Reason Start Time Stop Time Status Last Admin Dose Admin Acetaminophen (Tylenol) 650 mg Q4H PRN ORAL Mild Pain/Temp > 100.2 01/12/19 13:30 01/25/19 13:29 01/17/19 21:24 Acetaminophen (Tylenol) 650 mg Q6H PRN ORAL headache 01/14/19 09:00 02/13/19 08:59 Al Hydroxide/Mg Hydroxide (Mylanta) 30 ml Q6H PRN ORAL dyspepsia 01/12/19 14:00 01/27/19 13:59 01/16/19 02:35 Amlodipine Besylate (Norvasc) 5 mg BID ORAL 01/12/19 18:00 02/02/19 08:59 01/19/19 09:22 Barium Sulfate (Readi-Cat 2) 450 ml NOW PRN ORAL Radiology Procedure 01/18/19 09:00 01/20/19 08:59 01/18/19 14:40 Cefepime HCl 2 gm/ Dextrose 55 ml @ 110 mls/hr Q24H IVPB 01/19/19 18:00 01/26/19 17:59 Clonidine HCl (Catapres Tab) 0.1 mg Q6H PRN SL SBP>150 mmHg 01/12/19 13:30 01/21/19 13:29 01/15/19 08:59 Dextrose (Dextrose 50%) 25 ml Q30M PRN IV Hypoglycemia 01/12/19 13:45 01/21/19 12:44 Dextrose (Dextrose 50%) 50 ml Q30M PRN IV Hypoglycemia 01/12/19 13:45 01/21/19 12:44 Diphenhydramine HCl (Benadryl) 50 mg Q4H PRN ORAL Itching 01/12/19 14:00 01/26/19 13:59 Fentanyl (Duragesic) 1 patch Q72H TDERMAL 01/15/19 09:00 01/22/19 08:59 01/18/19 08:43 Fentanyl Citrate (Sublimaze 100 mcg/2 mL) 8 mcg Q2H PRN SUBQ Breakthrough pain 01/16/19 22:15 01/23/19 22:14 01/16/19 22:31 Levothyroxine Sodium (Synthroid) 100 mcg DAILY IV 01/13/19 09:00 02/04/19 08:59 01/19/19 09:25 Lidocaine HCl (Xylocaine Jelly 2%) 1 applic Q3H PRN TOPIC BURNING AROUND MEATUS 01/14/19 17:15 02/13/19 17:14 01/17/19 12:50 Lisinopril (Prinivil) 40 mg DAILY ORAL 01/13/19 09:00 01/30/19 08:59 01/19/19 09:22 Metoprolol Succinate (Toprol XL) 50 mg DAILY ORAL 01/13/19 09:00 01/23/19 08:59 01/19/19 09:22 Metronidazole 100 ml @ 100 mls/hr Q8HR IVPB 01/19/19 14:00 01/26/19 13:59 01/19/19 13:35 Micafungin Sodium 100 mg/Sodium Chloride 110 ml @ 110 mls/hr Q24H IVPB 01/17/19 20:00 01/23/19 19:59 01/18/19 20:35 Miscellaneous Medication (fentaNYL Destruction) 1 ea Q72H MISC 01/15/19 08:59 02/11/19 08:58 01/18/19 08:37 Mycophenolate Mofetil (Cellcept) 750 mg Q12HR ORAL 01/12/19 21:00 01/24/19 08:59 01/19/19 09:21 Naloxone HCl (Narcan) 0.1 mg PRN IV Sedation scale 3 or 4 01/12/19 13:30 02/03/19 13:44 Ondansetron HCl (Zofran) 4 mg Q6H PRN IVP Nausea & Vomiting 01/18/19 10:00 01/26/19 09:59 01/19/19 09:38 Pantoprazole (Protonix) 40 mg DAILY IVP 01/13/19 09:00 01/25/19 08:59 01/19/19 09:22 Potassium Chloride 20 meq/ Dextrose 1,010 ml @ 150 mls/hr Q6H44M IV 01/19/19 10:00 02/18/19 09:59 01/19/19 10:14 Prochlorperazine (Compazine) 10 mg Q6H PRN IVP Nausea & Vomiting 01/17/19 14:00 01/24/19 19:59 01/18/19 10:36 Tacrolimus (Prograf) 1 mg DAILY ORAL 01/13/19 09:00 02/04/19 08:59 01/19/19 09:22 Tacrolimus (Prograf) 2 mg BEDTIME ORAL 01/18/19 21:00 01/22/19 20:59 01/18/19 20:42 Trazodone HCl (Desyrel) 25 mg HSPRN PRN ORAL INSOMNIA 01/12/19 20:00 02/03/19 19:59 01/18/19 21:46 Vancomycin HCl (Vanco rx to dose) 1 ea DAILY PRN MISC Per rx protocol 01/18/19 13:00 02/17/19 12:59 Vancomycin HCl 1 gm/Dextrose 275 ml @ 183.708 mls/hr Q24H IVPB 01/19/19 14:00 01/24/19 13:59 Philly Shelby MD Jan 19, 2019 15:16
--- NOTE | 2019-01-19 16:12 | NUR ---
P.T WEEKLY PROGRESS NOTES: PATIENT SEEN THIS PAST WEEK OF P.T SESSION INCREASE STRENGTH AND ACTIVITY TOLERANCE FOR INCREASE MOBILITY INDEPENDENCE. PATIENT PROGRESSING SLOW BUT STEADY IN THERAPY. AND PATIENT CURRENTLY ABLE TO PERFORM BED MOBILITY AND TRANSFERS SUPERVISION- SBA X 1. PATIENT AMBULATES AVERAGE DISTANCE OF 100 FEET USING THE FWW , SBA X 1. WILL CONTINUE WITH POC WITH PROGRESSION OF ACTIVITIES.
--- NOTE | 2019-01-19 17:34 | Cardiology Progress Note ---
Assessment/Plan Status Narrative 1. Malfunctioning Kock pouch continent ileostomy. 2. History of ulcerative colitis. 3. History of primary sclerosing cholangitis. 4. Status post multiple abdominal operations. 4.1. Appendectomy in 1964. 4.2. Proctocolectomy and Kock pouch in 1978. 4.3. Total abdominal hysterectomy and bilateral salpingo-oophorectomy 1983 4.4. Cholecystectomy in 1985. 4.5. Orthotopic liver transplantation in 1999. 4.6. Revision of Kock pouch and repair of fistula in 2010. HTN- New onset- Controlled on Norvasc /Lisinopril and Metoprolol Tachycardia- improved with IV Fluids and Beta Blockers. Renal insuff- Most probably due volume depletion ( High GT output), possibly due to Toradal- Creat 1.2 Volume depletion- high GT output- I/Os negative CT Scan done 01/18- small fluid collections, no obstruction Assessment/Plan Metoprolol 25 mg QD Zestril 40 mg QD. Norvasc 5 mg BID Monitor BP as absorption is probably not adequate Peripheral IV as per Dr. Sotomayor Repeat labs in AM. Encouraged increased ambulation. Consider DC of Fentanyl patch since pain controlled and it may reduce bowel activity. Discussed with RN. Will discuss with Dr. Sotomayor. Subjective Cardiovascular: Reports: no symptoms Respiratory: Reports: no symptoms Gastrointestinal/Abdominal: Reports: other; Denies: abdominal pain, vomiting Genitourinary: Reports: no symptoms Subjective Still NPO vomiting x1 today Having out put from ileostomy Has been out of bed, ambulated. Pain controlled Creat 1.2 TPN DCd due to infected PICC line High output from GT- now being plugged Q2h Objective Last 24 Hour Vital Signs Date Time Temp Pulse Resp B/P (MAP) Pulse Ox O2 Delivery O2 Flow Rate FiO2 01/19/19 16:00 97.9 86 18 142/79 (100) 98 01/19/19 12:00 98.1 90 18 132/74 (93) 98 01/19/19 09:22 97 153/78 01/19/19 09:22 153/78 01/19/19 09:22 97 153/78 01/19/19 09:00 Room Air 01/19/19 08:00 97.8 97 18 153/78 (103) 96 01/19/19 04:52 98.1 99 18 142/78 (99) 96 01/19/19 00:00 97.6 97 20 132/90 (104) 97 01/18/19 21:02 98 Room Air 21 01/18/19 21:00 Room Air 01/18/19 20:00 98.3 100 18 143/83 (103) 98 01/18/19 18:03 108 141/77 General Appearance: no apparent distress, alert Cardiovascular: normal rate, regular rhythm, no gallop/murmur Respiratory/Chest: lungs clear Abdomen: non tender, soft, hypoactive bowel sounds Extremities: non-tender, normal inspection, no calf tenderness, no swelling Intake and Output 01/18/19 01/19/19 19:00 07:00 Intake Total 2228.666 ml 2684 ml Output Total 2675 ml 2830 ml Balance -446.334 ml -146 ml Intake Oral 120 ml 100 ml IV Total 2108.666 ml 2584 ml Output Urine Total 1575 ml 1050 ml Gastric Drainage Total 880 ml Drainage Total 25 ml 20 ml Other 1075 ml 880 ml Laboratory Tests Test 01/19/19 05:05 White Blood Count 7.3 K/UL (4.8-10.8) Red Blood Count 3.32 M/UL (4.20-5.40) L Hemoglobin 9.8 G/DL (12.0-16.0) L Hematocrit 29.6 % (37.0-47.0) L Mean Corpuscular Volume 89 FL (80-99) Mean Corpuscular Hemoglobin 29.5 PG (27.0-31.0) Mean Corpuscular Hemoglobin Concent 32.9 G/DL (32.0-36.0) Red Cell Distribution Width 13.7 % (11.6-14.8) Platelet Count 580 K/UL (150-450) H Mean Platelet Volume 5.9 FL (6.5-10.1) L Neutrophils (%) (Auto) 60.5 % (45.0-75.0) Lymphocytes (%) (Auto) 15.7 % (20.0-45.0) L Monocytes (%) (Auto) 5.5 % (1.0-10.0) Eosinophils (%) (Auto) 17.0 % (0.0-3.0) H Basophils (%) (Auto) 1.2 % (0.0-2.0) Sodium Level 134 MMOL/L (136-145) L Potassium Level 4.6 MMOL/L (3.5-5.1) Chloride Level 103 MMOL/L (98-107) Carbon Dioxide Level 23 MMOL/L (21-32) Anion Gap 8 mmol/L (5-15) Blood Urea Nitrogen 26 mg/dL (7-18) H Creatinine 1.2 MG/DL (0.55-1.30) Estimat Glomerular Filtration Rate 44.8 mL/min (>60) Glucose Level 152 MG/DL (74-106) H Calcium Level 9.6 MG/DL (8.5-10.1) Magnesium Level 2.0 MG/DL (1.8-2.4) Total Bilirubin 0.2 MG/DL (0.2-1.0) Aspartate Amino Transf (AST/SGOT) 29 U/L (15-37) Alanine Aminotransferase (ALT/SGPT) 38 U/L (12-78) Alkaline Phosphatase 384 U/L (46-116) H Total Protein 6.7 G/DL (6.4-8.2) Albumin 1.8 G/DL (3.4-5.0) L Globulin 4.9 g/dL Albumin/Globulin Ratio 0.4 (1.0-2.7) L Microbiology Date/Time Source Procedure Growth Status 01/17/19 17:35 Blood Blood Culture - Preliminary Resulted 01/17/19 17:25 Blood Blood Culture - Preliminary Resulted 01/17/19 19:14 Indwelling Cath Urine Culture - Preliminary Yeast Species Resulted Micha Ziegler MD Jan 19, 2019 17:34
[2019-01-19] MEDS: Cefepime HCl 2 GM in D5W 55 ML IVPB SCH (18:00)
--- NOTE | 2019-01-19 18:20 | NUR ---
NURSE NOTES: Pt ambulated hallway x 1 with RN assistance. No distress noted.
--- NOTE | 2019-01-19 19:32 | NUR ---
HAND-OFF: Report given to PATRICK Ivy. Pt is stable.
--- NOTE | 2019-01-19 19:33 | NUR ---
NURSE NOTES: Received report & pt from PATRICK Tyler. Pt lying in bed, a&ox4, in room air. No s/s of acute distress & c/o 2/10 pain at this time. GT to 2:2 protocol, to be unplugged @ 1999 & pt aware. Ileostomy appliance intact. Pickett cath intact & draining to gravity. HAROLDO to bulb suction. Surgical dressing C/D/I. IV site intact with IVF running as ordered. Bed in lowest position, call light within reach. Will continue to monitor.
--- NOTE | 2019-01-19 20:00 | NUR ---
NURSE NOTES: Cellcept & Prograf PO med given. GT clamped x 1 hr as ordered by . Will unclamp GT & connect to suction @ 2100 HS.
[2019-01-19] MEDS: Micafungin 100 MG in NS 110 ML IVPB SCH (20:09)
[2019-01-19] MEDS: TraZODone HCl 25 mg tablet ORAL PRN (21:01)
--- NOTE | 2019-01-19 22:00 | NUR ---
NURSE NOTES: Pt had 40cc of emesis; yellow fluid. No pieces of PO pills seen. Will continue to monitor.
[2019-01-20] VITALS (10 sets, daily range): BP systolic 120–150; BP diastolic 71–80
[2019-01-20] MEDS: TraZODone HCl 25 mg tablet ORAL PRN ×2 (00:58→21:44)
[2019-01-20 05:32] LABS: ANION GAP 7 mmol/L (5-15); BLOOD UREA NITROGEN 15 mg/dL (7-18); CALCIUM 9.7 MG/DL (8.5-10.1); CARBON DIOXIDE 25 MMOL/L (21-32); CHLORIDE 97 MMOL/L (98-107); CREATININE 1.3 MG/DL (0.55-1.30); POTASSIUM 4.2 MMOL/L (3.5-5.1); SODIUM 129 MMOL/L (136-145)
[2019-01-20 05:42] LABS: EOSINOPHILS % (AUTO) 17.1 % (0.0-3.0); HEMATOCRIT 29.8 % (37.0-47.0); HEMOGLOBIN 9.9 G/DL (12.0-16.0); LYMPHOCYTES % (AUTO) 15.8 % (20.0-45.0); MEAN CORPUSCULAR VOLUME 88 FL (80-99); MONOCYTES % (AUTO) 5.4 % (1.0-10.0); NEUTROPHILS % (AUTO) 60.7 % (45.0-75.0); PLATELET COUNT 600 K/UL (150-450); RED BLOOD COUNT 3.38 M/UL (4.20-5.40); RED CELL DISTRIBUTION WIDTH 13.2 % (11.6-14.8); WHITE BLOOD COUNT 9.3 K/UL (4.8-10.8)
--- NOTE | 2019-01-20 07:25 | NUR ---
HAND-OFF: Report given to PATRICK Menon. Rounds done.
--- NOTE | 2019-01-20 07:30 | NUR ---
NURSE NOTES: Pt lying in bed w/bed in lowest position and call light within reach. Pt A&Ox4, VSS, and in no apparent distress at this time. IV site intact/asymptomatic w/IVF running; GT to mod/int suction; surgical dressing C/D/I; HAROLDO drain to bulb suction; and F/C patent/draining well. Pt states she feels frustrated about slow progress and feels like she is not clear on what the plan is; informed pt that I would communicate her concerns to Dr. Sotomayor. Will continue to monitor.
--- NOTE | 2019-01-20 07:34 | General Progress Note ---
Assessment/Plan Status: unchanged Assessment/Plan: fu LFTs>>> stable now cellcept 750 BID prograft 3 gm per day monitor for Lyte protonix fu surg recs abx per ID GT to suction cont compazine and Zofran supportive care feeling better over night good out put from ostomy site TPN on hold due to Fungemia CT reviewed>>> doubt SMA syndrome may benefit from EGD to evaluate for duodenal narrowing will D/W surg Subjective ROS Limited/Unobtainable: Yes Allergies: Coded Allergies: CODEINE (Verified Allergy, Severe, 12/17/18) Face contractions HYDROMORPHONE (Verified Allergy, Severe, Itching, 12/17/18) Itching whole body METOCLOPRAMIDE (Verified Allergy, Severe, 12/17/18) Face contractions MORPHINE (Verified Allergy, Severe, Shortness of Breath, 12/17/18) SULFA (SULFONAMIDE ANTIBIOTICS) (Verified Allergy, Severe, 12/17/18) Face contractions Objective Last 24 Hour Vital Signs Date Time Temp Pulse Resp B/P (MAP) Pulse Ox O2 Delivery O2 Flow Rate FiO2 01/20/19 04:00 98.2 84 16 132/80 (97) 97 01/19/19 23:58 97.4 89 17 134/71 (92) 96 01/19/19 21:00 Room Air 01/19/19 20:07 97 Room Air 21 01/19/19 20:00 98.3 86 16 149/83 (105) 96 01/19/19 17:59 86 142/79 01/19/19 16:00 97.9 86 18 142/79 (100) 98 01/19/19 12:00 98.1 90 18 132/74 (93) 98 01/19/19 09:22 97 153/78 01/19/19 09:22 153/78 01/19/19 09:22 97 153/78 01/19/19 09:00 Room Air 01/19/19 08:00 97.8 97 18 153/78 (103) 96 Intake and Output 01/19/19 01/20/19 18:59 06:59 Intake Total 2078.000 ml 1500 ml Output Total 2180 ml 2485 ml Balance -102.000 ml -985 ml Intake Oral 100 ml IV Total 1978.000 ml 1500 ml Output Urine Total 1070 ml 1500 ml Stool Total 75 ml Emesis 70 ml 40 ml Drainage Total 40 ml 20 ml Other 1000 ml 850 ml Laboratory Tests 01/20/19 04:40: White Blood Count 9.3, Red Blood Count 3.38L, Hemoglobin 9.9L, Hematocrit 29.8L , Mean Corpuscular Volume 88, Mean Corpuscular Hemoglobin 29.2, Mean Corpuscular Hemoglobin Concent 33.1, Red Cell Distribution Width 13.2, Platelet Count 600H, Mean Platelet Volume 6.0L, Neutrophils (%) (Auto) 60.7, Lymphocytes (%) (Auto) 15.8L, Monocytes (%) (Auto) 5.4, Eosinophils (%) (Auto) 17.1H, Basophils (%) (Auto) 1.0, Sodium Level 129L, Potassium Level 4.2, Chloride Level 97L, Carbon Dioxide Level 25, Anion Gap 7, Blood Urea Nitrogen 15, Creatinine 1.3, Estimat Glomerular Filtration Rate 40.9, Glucose Level 167H, Calcium Level 9.7 Height (Feet): 5 Height (Inches): 3.00 Weight (Pounds): 135 General Appearance: alert EENT: PERRL/EOMI Neck: supple Cardiovascular: normal rate Respiratory/Chest: lungs clear Abdomen: soft, hypoactive bowel sounds, other - GT in place Extremities: non-tender Max Dozier MD Jan 20, 2019 07:34
--- NOTE | 2019-01-20 08:26 | General Progress Note ---
Progress Note Progress Note Afebrile VSS. No progress with trial of intermittent plugging of gastrostomy x 2 hour intervals Abdomen soft, healing. Urine 2570 Gastrostomy 1800+emesis 110 Ileostomy only 125cc HAROLDO 60 serous Na 129 BUN 15 Cr 1.3 Imp: Persistent high volume gastrostomy output Yeast in blood and urine - now on Cefepime, Flagyl, Vancomycin and Micafungin Plan: EGD by GI Change Fentanyl patch to 12mcg q72 hours - will d/c patch after this last one tapering dosage Change IV fluids f/u labs Lars Sotomayor MD Jan 20, 2019 08:26
[2019-01-20] MEDS: Pantoprazole Inj IVP SCH (08:38)
[2019-01-20] MEDS: Metoprolol Succinate XL 50mg tab ORAL SCH (08:40)
[2019-01-20] MEDS: Lisinopril 20mg tab ORAL SCH (08:41)
[2019-01-20] MEDS: fentaNYL Destruction MISC SCH (08:42)
[2019-01-20] MEDS: Mycophenolate 250mg cap ORAL SCH ×3 (08:44→20:20)
--- NOTE | 2019-01-20 09:45 | NUR ---
NURSE NOTES: Pt vomited about 225 ml of light yellow fluid; re-administered Prograf and Cellcept as ordered by Dr. Sotomayor. Will continue to monitor.
--- NOTE | 2019-01-20 10:05 | NUR ---
CASE MANAGEMENT:REVIEW 01/20/19 SI: POD #33...S/P RESECTION OF FAILED KOCJ POUCH POD#16...EXPL LAP W/SMALL BOWEL RESECTION AND RELOCATION OF ILEOSTOMY POD #13...S/P REPAIR OF STAPLE LINE DEHISCENCE POD #11...S/P REMOVE WOUND VAC. REPAIR BOWEL LEAK. 98.1 88 20 127/73 96% ON RA H/H-9.9/29.8 NA-129 IS: IVF@150/HR FENTANYL PATCH Q72 IV CEFEPIME Q24 IV FLAGYL Q8HRS IV VANCOMYCIN Q24 IV MICAFUNGIN Q24 CELLCEPT PO Q12 PROGRAF PO QHS LIDOCAINE PATCH NORVASC PO BID IV SYNTHROID QD LISINOPRIL PO QD TOPROL XL NG QD : MED/SURG STATUS 3 [facility]
--- NOTE | 2019-01-20 10:42 | Anethesia Preoperative Eval ---
Anesthesia Pre-op PMH/ROS General Date of Evaluation: Jan 20, 2019 Time of Evaluation: 10:41 Anesthesiologist: david ASA Score: ASA 3 Mallampati Score Class I : Soft palate, uvula, fauces, pillars visible Class II: Soft palate, uvula, fauces visible Class III: Soft palate, base of uvula visible Class IV: Only hard plate visible Mallampati Classification: Class II Surgeon: dimitri Diagnosis: anemia Surgical Procedure: egd Anesthesia History: none Social History: smoking - nonsmoker Family History: no anesthesia problems Allergies: Coded Allergies: CODEINE (Verified Allergy, Severe, 12/17/18) Face contractions HYDROMORPHONE (Verified Allergy, Severe, Itching, 12/17/18) Itching whole body METOCLOPRAMIDE (Verified Allergy, Severe, 12/17/18) Face contractions MORPHINE (Verified Allergy, Severe, Shortness of Breath, 12/17/18) SULFA (SULFONAMIDE ANTIBIOTICS) (Verified Allergy, Severe, 12/17/18) Face contractions Medications: see eMAR Patient NPO?: Yes NPO Date: Jan 08, 2019 NPO Time: 0000 Past Medical History Gastrointestinal/Genitourinary: Reports: other - bowel surgery, colitis, cholecystectomy, hysterectomy, salpingo-oopherectomy, appendectomy HEENT: Reports: cataract (L), cataract (R) PSxH Narrative: bowel surgery, cholecystectomy, hysterectomy, salpingo-oopherectomy, appendectomy Anesthesia Pre-op Phys. Exam Physician Exam Last Vital Signs Date Time Temp Pulse Resp B/P (MAP) Pulse Ox O2 Delivery O2 Flow Rate FiO2 01/20/19 09:00 Room Air 01/20/19 08:41 127/73 01/20/19 08:41 88 01/20/19 08:00 98.1 20 96 01/19/19 20:07 21 01/17/19 20:14 2.0 Constitutional: NAD Neurologic: CN 2-12 intact Cardiovascular: RRR Respiratory: CTA Gastrointestinal: S/NT/ND Airway Exam Mallampati Score: Class II Neck: flexible TMD: 2fb Anesthesia Pre-op A/P Labs Hematology Test 01/20/19 04:40 White Blood Count 9.3 K/UL (4.8-10.8) Red Blood Count 3.38 M/UL (4.20-5.40) L Hemoglobin 9.9 G/DL (12.0-16.0) L Hematocrit 29.8 % (37.0-47.0) L Mean Corpuscular Volume 88 FL (80-99) Mean Corpuscular Hemoglobin 29.2 PG (27.0-31.0) Mean Corpuscular Hemoglobin Concent 33.1 G/DL (32.0-36.0) Red Cell Distribution Width 13.2 % (11.6-14.8) Platelet Count 600 K/UL (150-450) H Mean Platelet Volume 6.0 FL (6.5-10.1) L Neutrophils (%) (Auto) 60.7 % (45.0-75.0) Lymphocytes (%) (Auto) 15.8 % (20.0-45.0) L Monocytes (%) (Auto) 5.4 % (1.0-10.0) Eosinophils (%) (Auto) 17.1 % (0.0-3.0) H Basophils (%) (Auto) 1.0 % (0.0-2.0) Chemistry Test 01/20/19 04:40 Sodium Level 129 MMOL/L (136-145) L Potassium Level 4.2 MMOL/L (3.5-5.1) Chloride Level 97 MMOL/L (98-107) L Carbon Dioxide Level 25 MMOL/L (21-32) Anion Gap 7 mmol/L (5-15) Blood Urea Nitrogen 15 mg/dL (7-18) Creatinine 1.3 MG/DL (0.55-1.30) Estimat Glomerular Filtration Rate 40.9 mL/min (>60) Glucose Level 167 MG/DL (74-106) H Calcium Level 9.7 MG/DL (8.5-10.1) Risk Assessment & Plan Assessment: asa3 Plan: mac Status Change Before Surgery: No Pre-Antibiotics Drug: Mercy Randolph MD Jan 20, 2019 10:42
[2019-01-20] MEDS ORDERED: Midazolam 2mg/2ml Inj IVP PRN (10:45)
[2019-01-20] MEDS ORDERED: DiphenhydrAMINE 50mg/ml Inj IVP PRN ×2 (10:45→15:10)
[2019-01-20] MEDS ORDERED: Atropine Inj 1mg/10ml Syr IV PRN (10:45)
[2019-01-20] MEDS ORDERED: fentaNYL 100 mcg/2 mL IV PRN (10:45)
--- NOTE | 2019-01-20 11:00 | NUR ---
NURSE NOTES: Pt ambulated w/PT around unit w/o incident; pt tolerated fairly well. Pt returned safely to bed. Will continue to monitor.
--- NOTE | 2019-01-20 11:26 | Pre-Procedure Note/Attestation ---
Pre-Procedure Note/Attestation Complete Prior to Procedure Planned Procedure: not applicable Procedure Narrative: egd Indications for Procedure Pre-Operative Diagnosis: abd pain Attestation I attest that I discussed the nature of the procedure; its benefits; risks and complications; and alternatives (and the risks and benefits of such alternatives ), prior to the procedure, with the patient (or the patient's legal sales representative womens health). I attest that, if there was a reasonable possibility of needing a blood transfusion, the patient (or the patient's legal sales representative womens health) was given the [facility] standardized written summary, pursuant to the Jesus Opal Blood Safety Act ([place] Health and Safety Code # 1645, as amended). I attest that I re-evaluated the patient just prior to the surgery and that there has been no change in the patient's H&P, except as documented below: Max Dozier MD Jan 20, 2019 11:26
[2019-01-20] MEDS ORDERED: Ketorolac 30mg Inj IV SCH (11:45)
[2019-01-20] MEDS: fentaNYL 100 mcg/2 mL SUBQ PRN (11:58)
[2019-01-20] MEDS ORDERED: Propofol 200mg/20ml IV ONE (12:08)
[2019-01-20] MEDS ORDERED: NS 110ml ONE (12:08)
[2019-01-20] MEDS ORDERED: Lidocaine 1% MPF 10mg/ml 5ml ONE (12:08)
--- NOTE | 2019-01-20 12:15 | NUR ---
NURSE NOTES: Patient taken down to GI lab via gurney; administered 8 mcg Fentanyl SQ before transport. Will continue to monitor.
--- NOTE | 2019-01-20 12:16 | Endoscopy Procedure Note ---
Endoscopy Procedure Note General Indication for Procedure: abd pain Procedures Performed: EGD Operative Findings/Diagnosis: gastritis Specimen: yes Pt Tolerated Procedure Well: Yes Estimated Blood Loss: none Anesthesia Anesthesiologist: jignesh Anesthesia: MAC Inserted Devices Implant(s) used?: No GI Core Measures 50 yrs or older w/o bx or poly: Not Applicable 10yrs. F/U recommended: Not Applicable Max Dozier MD Jan 20, 2019 12:15
--- NOTE | 2019-01-20 12:42 | NUR ---
*-*INSURANCE *-* UPDATED CLINICALS AND REVIEW HAVE BEEN FAXED TO: [facility]#[phone]
[2019-01-20] MEDS ORDERED: NS 500ML IVPB ONE (12:45)
--- NOTE | 2019-01-20 13:28 | Immediate Post-Op Evaluation ---
Immediate Post-Op Evalulation Immediate Post-Op Evalulation Procedure: egd w/bx Date of Evaluation: Jan 20, 2019 Time of Evaluation: 13:18 IV Fluids: 200ml 0.9ns Blood Products: none Estimated Blood Loss: negligible Blood Pressure Systolic: 134 Blood Pressure Diastolic: 80 Pulse Rate: 92 Respiratory Rate: 18 O2 Sat by Pulse Oximetry: 100 Temperature (Fahrenheit): 98.4 Pain Score (1-10): 0 Nausea: No Vomiting: No Complications none Patient Status: awake, reacts, patent Hydration Status: adequate Drug: Mercy Randolph MD Jan 20, 2019 13:28
--- NOTE | 2019-01-20 13:29 | 48 Hour Post Anesthesia Eval ---
Post Anesthesia Evaluation Procedure: egd w/bx Date of Evaluation: Jan 20, 2019 Time of Evaluation: 13:20 Blood Pressure Systolic: 127 0: 79 Pulse Rate: 89 Respiratory Rate: 18 Temperature (Fahrenheit): 98.4 O2 Sat by Pulse Oximetry: 100 Airway: patent Nausea: No Vomiting: No Pain Intensity: 0 Hydration Status: adequate Cardiopulmonary Status: stable Mental Status/LOC: patient returned to baseline Post-Anesthesia Complications: none Follow-up care needed: N/A Mercy Barone MD Jan 20, 2019 13:29
[2019-01-20] MEDS: Vancomycin 1gm/D5W 275ml IVPB SCH ×2 (15:20)
[2019-01-20] MEDS ORDERED: NS 500ML ONE (17:20)
[2019-01-20] MEDS ORDERED: NS Irrig 1000ml ONE ×2 (17:20→17:26)
[2019-01-20] MEDS ORDERED: Tubing IV Secondary IV ONE (17:26)
--- NOTE | 2019-01-20 18:00 | Procedure Note ---
DATE OF PROCEDURE: 01/20/2019 SURGEON: Max Dozier M.D. PROCEDURE: Upper endoscopy with biopsy. ANESTHESIA: Per Dr. Carmona. INSTRUMENT: Olympus adult flexible upper endoscope. INDICATIONS: Nausea, vomiting, abdominal pain. REASON FOR PROCEDURE: The procedure, risks, benefits, and possible consequences, including hemorrhage, aspiration, perforation and infection, and alternative treatments, were explained to the patient/legal guardian by Dr. Max Dozier and the patient/legal guardian understood and accepted these risks. PROCEDURE IN DETAIL: After informed consent was obtained and the patient was adequately sedated, Olympus upper endoscope was advanced from mouth into the esophagus. GE junction was found to be about 40 cm from the incisors. The patient has evidence of distal esophagitis. In the stomach, there was diffuse gastritis. Random biopsy from antrum was obtained to rule out H. pylori infection. Then, the scope was advanced into the duodenal bulb and second portion of the duodenum. At the second portion of the duodenum, there was a little bit narrowing in that area, not a luminal narrowing, it is not intraluminal since there is external compression of the lumen. I was able to pass the scope through. There was also a diverticulum in that area. At this time, the scope was retrieved and procedure was terminated. The patient had a Pickett catheter at the site of the G-tube, which was placed properly and there was no bleeding around the G-tube site. SUMMARY OF FINDINGS: 1. Gastritis, status post biopsy. 2. Esophagitis. 3. Duodenal diverticulum. 4. Narrowing in the area of the second portion of the duodenum at the area where the diverticulum is, possibly external compression. RECOMMENDATIONS: Continue on PPI. We will actually increase the dose to twice a day. We will discuss with the surgeon regarding the management of this condition. I want to thank, Dr. Lars Sotomayor, for this kind referral. Max Dozier M.D. DR: Anderson JOB#: [id number] CC: Lars Sotomayor M.D.; Fax#: [phone]
[2019-01-20] MEDS: Cefepime HCl 2 GM in D5W 55 ML IVPB SCH (18:08)
--- NOTE | 2019-01-20 19:18 | Cardiology Progress Note ---
Assessment/Plan Status Narrative 1. Malfunctioning Kock pouch continent ileostomy. 2. History of ulcerative colitis. 3. History of primary sclerosing cholangitis. 4. Status post multiple abdominal operations. 4.1. Appendectomy in 1964. 4.2. Proctocolectomy and Kock pouch in 1978. 4.3. Total abdominal hysterectomy and bilateral salpingo-oophorectomy 1983 4.4. Cholecystectomy in 1985. 4.5. Orthotopic liver transplantation in 1999. 4.6. Revision of Kock pouch and repair of fistula in 2010. HTN- New onset- Controlled on Norvasc /Lisinopril and Metoprolol Tachycardia- improved with IV Fluids and Beta Blockers. Renal insuff- Most probably due volume depletion ( High GT output), possibly due to Toradal- Creat 1.2 Volume depletion- high GT output- I/Os negative CT Scan done 01/18- small fluid collections, no obstruction Esophagitis Duodenal narrowing Assessment/Plan Metoprolol 25 mg QD Zestril 40 mg QD. Norvasc 5 mg BID Monitor BP as absorption is probably not adequate Peripheral IV as per Dr. Sotomayor Repeat labs in AM. Encouraged increased ambulation. . Discussed with RN. Will discuss with Dr. Sotomayor. Discussed with Dr. Carmichael. Subjective Cardiovascular: Reports: no symptoms Respiratory: Reports: no symptoms Gastrointestinal/Abdominal: Reports: abdomen distended Genitourinary: Reports: no symptoms Subjective Still NPO vomiting x1 today Having out put from ileostomy Has been out of bed, ambulated. Pain controlled Creat 1.3 High output from GT- now being plugged Q2h S/P EGD today- showed gastriris/esophagitis with mid duodenal narrowing Objective Last 24 Hour Vital Signs Date Time Temp Pulse Resp B/P (MAP) Pulse Ox O2 Delivery O2 Flow Rate FiO2 01/20/19 18:08 92 132/71 01/20/19 16:00 99.0 92 20 132/71 (91) 96 01/20/19 13:50 88 18 130/75 100 Nasal Cannula 3 01/20/19 13:35 92 14 126/73 100 Nasal Cannula 3 01/20/19 13:29 89 18 100 01/20/19 13:28 92 18 100 01/20/19 13:25 89 17 120/74 100 Nasal Cannula 3 01/20/19 13:15 91 15 129/79 100 Nasal Cannula 3 01/20/19 13:06 98.1 92 18 134/80 100 Nasal Cannula 3 01/20/19 12:00 98.7 89 20 127/79 (95) 96 01/20/19 09:00 Room Air 01/20/19 08:41 127/73 01/20/19 08:41 88 127/73 01/20/19 08:40 88 127/73 01/20/19 08:00 98.1 88 20 127/73 (91) 96 01/20/19 04:00 98.2 84 16 132/80 (97) 97 01/19/19 23:58 97.4 89 17 134/71 (92) 96 01/19/19 21:00 Room Air 01/19/19 20:07 97 Room Air 21 01/19/19 20:00 98.3 86 16 149/83 (105) 96 General Appearance: no apparent distress, alert Cardiovascular: normal rate, regular rhythm, no gallop/murmur Respiratory/Chest: lungs clear Abdomen: soft, hypoactive bowel sounds, distended Extremities: non-tender, no calf tenderness, no swelling Intake and Output 01/19/19 01/20/19 19:00 07:00 Intake Total 1904.000 ml 1650 ml Output Total 2180 ml 2485 ml Balance -276.000 ml -835 ml Intake Oral 100 ml IV Total 1804.000 ml 1650 ml Output Urine Total 1070 ml 1500 ml Stool Total 75 ml Emesis 70 ml 40 ml Drainage Total 40 ml 20 ml Other 1000 ml 850 ml Laboratory Tests Test 01/20/19 04:40 White Blood Count 9.3 K/UL (4.8-10.8) Red Blood Count 3.38 M/UL (4.20-5.40) L Hemoglobin 9.9 G/DL (12.0-16.0) L Hematocrit 29.8 % (37.0-47.0) L Mean Corpuscular Volume 88 FL (80-99) Mean Corpuscular Hemoglobin 29.2 PG (27.0-31.0) Mean Corpuscular Hemoglobin Concent 33.1 G/DL (32.0-36.0) Red Cell Distribution Width 13.2 % (11.6-14.8) Platelet Count 600 K/UL (150-450) H Mean Platelet Volume 6.0 FL (6.5-10.1) L Neutrophils (%) (Auto) 60.7 % (45.0-75.0) Lymphocytes (%) (Auto) 15.8 % (20.0-45.0) L Monocytes (%) (Auto) 5.4 % (1.0-10.0) Eosinophils (%) (Auto) 17.1 % (0.0-3.0) H Basophils (%) (Auto) 1.0 % (0.0-2.0) Sodium Level 129 MMOL/L (136-145) L Potassium Level 4.2 MMOL/L (3.5-5.1) Chloride Level 97 MMOL/L (98-107) L Carbon Dioxide Level 25 MMOL/L (21-32) Anion Gap 7 mmol/L (5-15) Blood Urea Nitrogen 15 mg/dL (7-18) Creatinine 1.3 MG/DL (0.55-1.30) Estimat Glomerular Filtration Rate 40.9 mL/min (>60) Glucose Level 167 MG/DL (74-106) H Calcium Level 9.7 MG/DL (8.5-10.1) Microbiology Date/Time Source Procedure Growth Status 01/17/19 19:14 Indwelling Cath Urine Culture - Preliminary Yeast Species Resulted Micha Ziegler MD Jan 20, 2019 19:17
--- NOTE | 2019-01-20 19:35 | NUR ---
HAND-OFF: Report given to PATRICK Zamarripa.
[2019-01-20] MEDS: Micafungin 100 MG in NS 110 ML IVPB SCH (20:19)
[2019-01-21] VITALS: BP 145/77
[2019-01-21] MEDS: TraZODone HCl 25 mg tablet ORAL PRN (01:06)
--- NOTE | 2019-01-21 02:11 | NUR ---
NURSES NOTE: Pt in bed, A/O X4, able to let needs be known. No s/s of respiratory distress noted. Breathing is even and unlabored. Vital signs within normal limits. All due meds given without incident. Patient given 2 doses of Trazadone 25mg to aid in sleeping. At approximately 0200 patient had an episode of vomiting, amount was 200 cc, green in color. Pt offered compazine for n/v, however pt declined and stated she would would wait for her next due dose of zofran 4mg/2ml dose at 0300. Pickett is patent and draining, urine yellow in color. Ileo is patent and draining in collecting bag. gtube is set to intermittent medium suctioning and is being connected/disconnected according to order through out NOC shift. Patient will continue to be monitored, bed at lowest level, call light within reach.
[2019-01-21 04:00] VITALS: BP 133/77
[2019-01-21 05:30] LABS: BASOPHILS % (AUTO) 1.1 % (0.0-2.0); EOSINOPHILS % (AUTO) 11.7 % (0.0-3.0); HEMOGLOBIN 9.1 G/DL (12.0-16.0); LYMPHOCYTES % (AUTO) 15.4 % (20.0-45.0); MEAN CORPUSCULAR VOLUME 88 FL (80-99); MONOCYTES % (AUTO) 7.3 % (1.0-10.0); NEUTROPHILS % (AUTO) 64.4 % (45.0-75.0); PLATELET COUNT 546 K/UL (150-450); RED BLOOD COUNT 3.17 M/UL (4.20-5.40); RED CELL DISTRIBUTION WIDTH 13.4 % (11.6-14.8); WHITE BLOOD COUNT 6.6 K/UL (4.8-10.8)
[2019-01-21 05:57] LABS: ALANINE AMINOTRANSFERASE 37 U/L (12-78); ALBUMIN 1.9 G/DL (3.4-5.0); ALBUMIN/GLOBULIN RATIO 0.4 (1.0-2.7); ALKALINE PHOSPHATASE 298 U/L (46-116); ANION GAP 7 mmol/L (5-15); ASPARTATE AMINO TRANSFERASE 26 U/L (15-37); BILIRUBIN,TOTAL 0.3 MG/DL (0.2-1.0); BLOOD UREA NITROGEN 12 mg/dL (7-18); CALCIUM 9.7 MG/DL (8.5-10.1); CARBON DIOXIDE 23 MMOL/L (21-32); CHLORIDE 107 MMOL/L (98-107); CREATININE 1.3 MG/DL (0.55-1.30); POTASSIUM 4.2 MMOL/L (3.5-5.1); SODIUM 137 MMOL/L (136-145)
--- NOTE | 2019-01-21 06:39 | NUR ---
NURSE NOTES: Pt vomitted with emesis 200cc yellow color. Compazine given with good relief. Resume suction without plugging the g-tube. will endorse to next nurse.
--- NOTE | 2019-01-21 06:49 | NUR ---
NURSE NOTES: Called and informed Dr. Sotomayor that catheter part of the HAROLDO drain was very frail and broke off from the HAROLDO drain. HAROLDO output was 25cc. Pt vomitted again this am 200cc yellow emesis. Compazine 10mg IVP given with good relief. Reconnected pt back to suction without plugging the g-tube. Will endorse to next nurse. Awaiting call back from Dr. Sotomayor.
--- NOTE | 2019-01-21 07:21 | NUR ---
HAND-OFF: Report given to PATRICK Menon. Pt in stable condition.
--- NOTE | 2019-01-21 07:26 | NUR ---
NURSE NOTES: Dr. Sotomayor called back made aware of HAROLDO catheter part broke of from HAROLDO drain. No new orders given. Endorsed to PATRICK Menon.
--- NOTE | 2019-01-21 07:30 | NUR ---
NURSE NOTES: Pt lying in bed w/bed in lowest position and call light within reach. Pt A&Ox4, VSS, and in no apparent distress. IV site intact/asymptomatic w/IVF infusing; ileo C/D/I; GT to mod/int suction; F/C patent/draining well; and HAROLDO drain knotted off d/t bulb coming off -- Dr. Sotomayor aware. Will continue to monitor.
[2019-01-21 08:00] VITALS: BP 143/80
[2019-01-21] MEDS ORDERED: fentaNYL 100 mcg/2 mL SUBQ PRN (08:45)
--- NOTE | 2019-01-21 08:57 | General Progress Note ---
Progress Note Progress Note AVSS Continued emesis with gastrostomy 3:1 protocol. Abdomen soft, non-tender. Incisions clean. HAROLDO drain removed Urine 1700 Gastrostomy 1310+emesis 775 = 2085cc Labs all okay today Imp. Gastric retention ? partial duodenal obstruction Plan: Gastrograffin UGI series today Lars Sotomayor MD Jan 21, 2019 08:57
--- NOTE | 2019-01-21 09:24 | NUR ---
NURSE NOTES: Per Dr. Shelby, D/C'd orders for Vanco, Cefepime, and Flagyl. Will continue to monitor.
[2019-01-21] MEDS: Lisinopril 20mg tab ORAL SCH (09:33)
[2019-01-21] MEDS: Pantoprazole Inj IVP SCH (09:33)
[2019-01-21] MEDS: Metoprolol Succinate XL 50mg tab ORAL SCH (09:33)
[2019-01-21] MEDS: Mycophenolate 250mg cap ORAL SCH ×3 (09:33→22:18)
--- NOTE | 2019-01-21 10:30 | NUR ---
NURSE NOTES: Pt ambulated w/PT around unit w/o incident. PT helped pt to chair w/call light in reach. Will continue to monitor.
--- NOTE | 2019-01-21 10:32 | GI Progress Note ---
Assessment/Plan Problems: (1) Malfunctioning Kock Pouch (2) History of liver transplant ICD Codes: Z94.4 - Liver transplant status SNOMED: [id number] Status: unchanged Status Narrative Discussed with Dr. Dozier. Assessment/Plan s/p EGD SUMMARY OF FINDINGS: 1. Gastritis, status post biopsy. 2. Esophagitis. 3. Duodenal diverticulum. 4. Narrowing in the area of the second portion of the duodenum at the area where the diverticulum is, possibly external compression. LFTs>>> stable now off TPN RECOMMENDATIONS: PPI cellcept 750 BID Prograf 3 gm per day monitor for Lyte abx per ID GT to suction cont compazine and Zofran supportive care will fu The patient was seen and examined at bedside and all new and available data was reviewed in the patients chart. I agree with the above findings, impression and plan. (Patient seen earlier today. Signature stamp does not reflect patient encounter time.). - Max Dozier MD Subjective Subjective nausea Objective Last 24 Hour Vital Signs Date Time Temp Pulse Resp B/P (MAP) Pulse Ox O2 Delivery O2 Flow Rate FiO2 01/21/19 09:33 100 143/80 01/21/19 09:33 143/80 01/21/19 09:33 100 143/80 01/21/19 09:00 Room Air 01/21/19 08:00 98.4 100 18 143/80 (101) 96 01/21/19 04:00 98.8 94 18 133/77 (95) 97 01/21/19 00:00 99.0 94 16 145/77 (99) 96 01/20/19 21:00 Room Air 01/20/19 20:00 98.7 95 18 150/77 (101) 98 01/20/19 19:42 96 Room Air 21 01/20/19 18:08 92 132/71 01/20/19 16:00 99.0 92 20 132/71 (91) 96 01/20/19 13:50 88 18 130/75 100 Nasal Cannula 3 01/20/19 13:35 92 14 126/73 100 Nasal Cannula 3 01/20/19 13:29 89 18 100 01/20/19 13:28 92 18 100 01/20/19 13:25 89 17 120/74 100 Nasal Cannula 3 01/20/19 13:15 91 15 129/79 100 Nasal Cannula 3 01/20/19 13:06 98.1 92 18 134/80 100 Nasal Cannula 3 01/20/19 12:00 98.7 89 20 127/79 (95) 96 Intake and Output 01/20/19 01/21/19 18:59 06:59 Intake Total 3220.000 ml 1980 ml Output Total 1850 ml 2115 ml Balance 1370.000 ml -135 ml Intake Oral 120 ml 120 ml IV Total 3100.000 ml 1860 ml Output Urine Total 800 ml 900 ml Emesis 375 ml 400 ml Drainage Total 25 ml 25 ml Other 650 ml 790 ml Laboratory Tests Test 01/21/19 04:30 White Blood Count 6.6 K/UL (4.8-10.8) Red Blood Count 3.17 M/UL (4.20-5.40) L Hemoglobin 9.1 G/DL (12.0-16.0) L Hematocrit 28.0 % (37.0-47.0) L Mean Corpuscular Volume 88 FL (80-99) Mean Corpuscular Hemoglobin 28.6 PG (27.0-31.0) Mean Corpuscular Hemoglobin Concent 32.4 G/DL (32.0-36.0) Red Cell Distribution Width 13.4 % (11.6-14.8) Platelet Count 546 K/UL (150-450) H Mean Platelet Volume 5.7 FL (6.5-10.1) L Neutrophils (%) (Auto) 64.4 % (45.0-75.0) Lymphocytes (%) (Auto) 15.4 % (20.0-45.0) L Monocytes (%) (Auto) 7.3 % (1.0-10.0) Eosinophils (%) (Auto) 11.7 % (0.0-3.0) H Basophils (%) (Auto) 1.1 % (0.0-2.0) Sodium Level 137 MMOL/L (136-145) Potassium Level 4.2 MMOL/L (3.5-5.1) Chloride Level 107 MMOL/L (98-107) Carbon Dioxide Level 23 MMOL/L (21-32) Anion Gap 7 mmol/L (5-15) Blood Urea Nitrogen 12 mg/dL (7-18) Creatinine 1.3 MG/DL (0.55-1.30) Estimat Glomerular Filtration Rate 40.9 mL/min (>60) Glucose Level 130 MG/DL (74-106) H Calcium Level 9.7 MG/DL (8.5-10.1) Total Bilirubin 0.3 MG/DL (0.2-1.0) Aspartate Amino Transf (AST/SGOT) 26 U/L (15-37) Alanine Aminotransferase (ALT/SGPT) 37 U/L (12-78) Alkaline Phosphatase 298 U/L (46-116) H Total Protein 6.3 G/DL (6.4-8.2) L Albumin 1.9 G/DL (3.4-5.0) L Globulin 4.4 g/dL Albumin/Globulin Ratio 0.4 (1.0-2.7) L Height (Feet): 5 Height (Inches): 3.00 Weight (Pounds): 134 General Appearance: WD/WN, no apparent distress, alert Cardiovascular: normal rate Respiratory/Chest: normal breath sounds, no respiratory distress Abdominal Exam: normal bowel sounds, non tender, soft, other - ileostomy Extremities: normal range of motion, non-tender Jeyson Luna NP Jan 21, 2019 10:32
[2019-01-21 12:00] VITALS: BP 127/76
--- NOTE | 2019-01-21 14:38 | Diagnostic Imaging Report ---
Indication: Large gastric residuals. Vomiting. Findings: Fluoroscopic imaging obtained intraoperatively. Fluoroscopic time: 185 seconds Number fluoroscopic images: 23 Through the indwelling gastrostomy, approximately 120 cc of water-soluble contrast was administered and observed on a fluoroscopic C-arm. Multiple images were obtained. This was performed with the patient in a semierect position. The stock unloader film shows a gastrostomy over the stomach lumen. There are multiple surgical clips in the abdomen. Contrast within the stomach readily enters the pyloric channel and duodenum. In the third portion of the duodenum there was some holdup of contrast initially. This persisted for about one minute. With more contrast in the stomach, there was eventual passage of contrast into the fourth portion of duodenum and proximal jejunum. The area of impedance or holdup of contrast was mildly narrowed relative to the proximal portion of the duodenum. IMPRESSION: Focal impedance to flow in the third portion of the duodenum, not obstructive. Correlating with CT (01/18/2019) there was no evidence of SMA syndrome or extrinsic obstructing mass or cyst. However, CT did show evidence of postsurgical inflammatory type changes in the upper abdomen especially in the fourth portion of the duodenum and proximal jejunum. Suspect there may be an ileus or aperistaltic segment that may be accounting for the findings.
--- NOTE | 2019-01-21 15:49 | NUR ---
CASE MANAGEMENT:REVIEW 01/21/19 SI: POD #34...S/P RESECTION OF FAILED KOCJ POUCH POD#17...EXPL LAP W/SMALL BOWEL RESECTION AND RELOCATION OF ILEOSTOMY POD #14...S/P REPAIR OF STAPLE LINE DEHISCENCE POD #12..S/P REMOVE WOUND VAC. REPAIR BOWEL LEAK. 98.5 94 18 143/80 95% ON RA H/H-9.1/28.0 IS: IVF@150/HR FENTANYL PATCH Q72 IV DIFLUCAN Q24 CELLCEPT PO Q12 PROGRAF PO QHS LIDOCAINE PATCH NORVASC PO BID IV SYNTHROID QD LISINOPRIL PO QD TOPROL XL NG QD : MED/SURG STATUS 3 EAST PLAN: HAROLDO DRAIN REMOVED GASTROGRAFIN UGI SERIES TODAY
[2019-01-21 16:00] VITALS: BP 135/75
--- NOTE | 2019-01-21 16:07 | Infectious Diseases Prog Note ---
Assessment/Plan Assessment/Plan ASSESSMENT AND PLAN: 1. leukocytosis, fevers, ? 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 Sotomayor, RN and patient, d/w pharmacy - monitor labs, leukocytosis and fevers resolved - 2D echo ordered 2. 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 3. Liver transplantation. 4. Sclerosing cholangitis. 5. Ulcerative colitis. 6. The patient is anemic. 7. History of cholecystectomy, appendectomy, hysterectomy, and proctocolectomy. 8. History of multiple abdominal operations. 9. Allergies to codeine, hydromorphone, metoclopramide, morphine, and sulfa. 10. Family doctor is Noncontributory. 11. Social history is negative. 12. MAR was noted. 13. Case discussed with RN. 14. Case discussed with the patient. 15. Continue treatment per Dr. Sotomayor and consultants. Subjective Constitutional: Denies: fever HEENT: Denies: congestion Respiratory: Denies: shortness of breath Cardiovascular: Denies: chest pain Gastrointestinal/Abdominal: Reports: other - no abdominal pain ; Denies: nausea , vomiting Neurologic: Denies: headache Psychiatric: Denies: depression Skin: Denies: rash Hematologic: Denies: bleeding Musculoskeletal: Denies: pain Allergies: Coded Allergies: CODEINE (Verified Allergy, Severe, 12/17/18) Face contractions HYDROMORPHONE (Verified Allergy, Severe, Itching, 12/17/18) Itching whole body METOCLOPRAMIDE (Verified Allergy, Severe, 12/17/18) Face contractions MORPHINE (Verified Allergy, Severe, Shortness of Breath, 12/17/18) SULFA (SULFONAMIDE ANTIBIOTICS) (Verified Allergy, Severe, 12/17/18) Face contractions Objective Vital Signs Last 24 Hour Vital Signs Date Time Temp Pulse Resp B/P (MAP) Pulse Ox O2 Delivery O2 Flow Rate FiO2 01/21/19 12:00 98.5 94 18 127/76 (93) 95 01/21/19 09:33 100 143/80 01/21/19 09:33 143/80 01/21/19 09:33 100 143/80 01/21/19 09:00 Room Air 01/21/19 08:00 98.4 100 18 143/80 (101) 96 01/21/19 04:00 98.8 94 18 133/77 (95) 97 01/21/19 00:00 99.0 94 16 145/77 (99) 96 01/20/19 21:00 Room Air 01/20/19 20:00 98.7 95 18 150/77 (101) 98 01/20/19 19:42 96 Room Air 21 01/20/19 18:08 92 132/71 01/20/19 16:00 99.0 92 20 132/71 (91) 96 Height (Feet): 5 Height (Inches): 3.00 Weight (Pounds): 134 General Appearance: no acute distress HEENT: normocephalic, atraumatic, anicteric, mucous membranes moist Respiratory/Chest: lungs clear, normal breath sounds, no respiratory distress, no accessory muscle use Cardiovascular: normal rate, regular rhythm, no gallop/murmur Abdomen: normal bowel sounds, soft, non tender, no organomegaly, non distended Genitourinary: other - no morales Extremities: no cyanosis Skin: no rash, no ulcers Neurologic/Psychiatric: alert, oriented x 3, responsive Lymphatic: no neck adenopathy Musculoskeletal: no effusion Objective CT scan abdomen and pelvis - 01/18/19 - 1. Evidence of total colectomy. Right lower abdominal wall ostomy is new since prior study. Previously seen left lower quadrant ostomy has been taken down. 2. Prominent proximal duodenum narrowing between the SMA and aorta. Query SMA syndrome. 3. Left lower abdominal wall percutaneous drainage catheter with tip in the right anterior lower abdomen. There is 3.6 x 6 cm fluid collection in the anterior lower pelvis and another loculated 2.8 x 3 cm collection to the right, likely connecting. There are surgical clips associated with the fluid collections and this may be unopacified patulous small bowel, limited as the oral contrast has not reached the distal small bowel loops. Consider delayed imaging. 4. Smaller loculated fluid with small air bubbles in the pelvis, likely due to recent postop changes, cannot exclude fistula or leak. 5. Anterior abdominal wall vertical incision with small fluid along the incision in the subcutaneous soft tissue. 6. Percutaneous gastrostomy tube. 7. Tiny bilateral nonobstructive renal stones. No ureteral stone or renal obstruction. CT abdomen and pelvis - 12/26/18 - Status post recent abdominal surgery with creation of a left lower quadrant Yajaira ileostomy. Good bowel and bag opacification with no evidence of bowel obstruction. Unusual, markedly distended unopacified loop of bowel in the pelvis. Although unopacified, this does not appear to be an abscess as there is a wall and other characteristics more in keeping with bowel. Would consider a large diverticulum or possibly remnant of the previous Kock pouch or part of the small bowel leading to the old pouch as those segments are sometimes quite distended. Status post liver transplant. Status post cholecystectomy. Mild basal atelectasis. Chest x-ray - no pna, report noted CT abdomen/pelvis - 12/30/18 - Impression: Postsurgical changes, as described Unusual tubular structure filled mostly with gas but also some fluid communicating with the small bowel at the site of a right lower quadrant enteroenterostomy. Uncertain as to whether this represents an unusual large diverticulum, a true extraluminal gas collection, or a portion of an old continent ileostomy pouch. This is also previously described Dilated proximal small bowel proximal to the enteroenterostomy with slow forward propulsion of contents. Partial small bowel obstruction not completely excludable although unlikely given evidence of forward propulsion of contrast and filling of the ileostomy on prior 12/26/2018 exam; findings most likely functional in nature. Correlate with clinical findings Small anterior pelvic and deep pelvic fluid pockets, most likely represent retained postoperative fluid collections. Abscess as etiology of any of these not completely excludable; correlation with clinical findings recommended Postsurgical changes of the liver status post transplantation Punctate nonobstructing bilateral intrarenal calculi Bilateral basilar pulmonary parenchymal atelectasis and/or scarring Chest x-ray - 01/07/19 - Images previously reviewed in person with Dr. Sotomayor Interval placement of a right transjugular central line, catheter tip in the region of the high right atrium. Left arm PICC line remains in place with the catheter tip at the cavoatrial junction. No evidence of pneumothorax. No definite focal airspace consolidation or pleural effusion. Surgical clips noted projecting over the upper abdomen. Microbiology Date/Time Source Procedure Growth Status 01/17/19 17:35 Blood Blood Culture - Final Jeff Parapsilosis Complete 01/08/19 16:00 Stool Clostridium difficile Toxin Assay - Final Complete 01/17/19 19:14 Indwelling Cath Urine Culture - Final Jeff Parapsilosis Complete 01/06/19 22:30 Abdominal Fluid Gram Stain - Final Complete 01/06/19 22:30 Body Fluid Culture - Final Jeff Albicans Complete Laboratory Tests Test 01/21/19 04:30 White Blood Count 6.6 K/UL (4.8-10.8) Red Blood Count 3.17 M/UL (4.20-5.40) L Hemoglobin 9.1 G/DL (12.0-16.0) L Hematocrit 28.0 % (37.0-47.0) L Mean Corpuscular Volume 88 FL (80-99) Mean Corpuscular Hemoglobin 28.6 PG (27.0-31.0) Mean Corpuscular Hemoglobin Concent 32.4 G/DL (32.0-36.0) Red Cell Distribution Width 13.4 % (11.6-14.8) Platelet Count 546 K/UL (150-450) H Mean Platelet Volume 5.7 FL (6.5-10.1) L Neutrophils (%) (Auto) 64.4 % (45.0-75.0) Lymphocytes (%) (Auto) 15.4 % (20.0-45.0) L Monocytes (%) (Auto) 7.3 % (1.0-10.0) Eosinophils (%) (Auto) 11.7 % (0.0-3.0) H Basophils (%) (Auto) 1.1 % (0.0-2.0) Sodium Level 137 MMOL/L (136-145) Potassium Level 4.2 MMOL/L (3.5-5.1) Chloride Level 107 MMOL/L (98-107) Carbon Dioxide Level 23 MMOL/L (21-32) Anion Gap 7 mmol/L (5-15) Blood Urea Nitrogen 12 mg/dL (7-18) Creatinine 1.3 MG/DL (0.55-1.30) Estimat Glomerular Filtration Rate 40.9 mL/min (>60) Glucose Level 130 MG/DL (74-106) H Calcium Level 9.7 MG/DL (8.5-10.1) Total Bilirubin 0.3 MG/DL (0.2-1.0) Aspartate Amino Transf (AST/SGOT) 26 U/L (15-37) Alanine Aminotransferase (ALT/SGPT) 37 U/L (12-78) Alkaline Phosphatase 298 U/L (46-116) H Total Protein 6.3 G/DL (6.4-8.2) L Albumin 1.9 G/DL (3.4-5.0) L Globulin 4.4 g/dL Albumin/Globulin Ratio 0.4 (1.0-2.7) L Current Medications Medications (Trade) Dose Ordered Sig/Kajal Route PRN Reason Start Time Stop Time Status Last Admin Dose Admin Acetaminophen (Tylenol) 650 mg Q4H PRN ORAL Mild Pain/Temp > 100.2 01/12/19 13:30 01/25/19 13:29 01/17/19 21:24 Acetaminophen (Tylenol) 650 mg Q6H PRN ORAL headache 01/14/19 09:00 02/13/19 08:59 Al Hydroxide/Mg Hydroxide (Mylanta) 30 ml Q6H PRN ORAL dyspepsia 01/12/19 14:00 01/27/19 13:59 01/16/19 02:35 Amlodipine Besylate (Norvasc) 5 mg BID ORAL 01/12/19 18:00 02/02/19 08:59 01/21/19 09:33 Clonidine HCl (Catapres Tab) 0.1 mg Q6H PRN SL SBP>150 mmHg 01/21/19 08:45 01/30/19 08:44 Dextrose/ Electrolytes 1,000 ml @ 150 mls/hr Q6H40M IV 01/20/19 09:00 02/19/19 08:59 01/21/19 13:30 Diphenhydramine HCl (Benadryl) 50 mg Q4H PRN ORAL Itching 01/12/19 14:00 01/26/19 13:59 Fentanyl (Duragesic) 1 patch Q72H TDERMAL 01/20/19 09:00 01/27/19 08:59 01/20/19 08:43 Fentanyl Citrate (Sublimaze 100 mcg/2 mL) 8 mcg Q2H PRN SUBQ Breakthrough pain 01/21/19 08:45 01/28/19 08:44 Fluconazole/ Sodium Chloride 200 ml @ 100 mls/hr Q2H IV 01/21/19 17:00 01/21/19 20:59 Fluconazole/ Sodium Chloride 200 ml @ 200 mls/hr Q24H IV 01/22/19 17:00 01/29/19 16:59 Levothyroxine Sodium (Synthroid) 100 mcg DAILY IV 01/13/19 09:00 02/04/19 08:59 01/21/19 09:32 Lidocaine HCl (Xylocaine Jelly 2%) 1 applic Q3H PRN TOPIC BURNING AROUND MEATUS 01/14/19 17:15 02/13/19 17:14 01/17/19 12:50 Lisinopril (Prinivil) 40 mg DAILY ORAL 01/13/19 09:00 01/30/19 08:59 01/21/19 09:33 Metoprolol Succinate (Toprol XL) 50 mg DAILY ORAL 01/13/19 09:00 01/23/19 08:59 01/21/19 09:33 Miscellaneous Medication (fentaNYL Destruction) 1 ea Q72H MISC 01/20/19 08:59 02/19/19 08:58 01/20/19 08:42 Mycophenolate Mofetil (Cellcept) 750 mg Q12HR ORAL 01/12/19 21:00 01/24/19 08:59 01/21/19 09:33 Naloxone HCl (Narcan) 0.1 mg PRN IV Sedation scale 3 or 4 01/12/19 13:30 02/03/19 13:44 Ondansetron HCl (Zofran) 4 mg Q6H PRN IVP Nausea & Vomiting 01/18/19 10:00 01/26/19 09:59 01/21/19 09:33 Pantoprazole (Protonix) 40 mg DAILY IVP 01/13/19 09:00 01/25/19 08:59 01/21/19 09:33 Prochlorperazine (Compazine) 10 mg Q6H PRN IVP Nausea & Vomiting 01/17/19 14:00 01/24/19 19:59 01/21/19 06:31 Tacrolimus (Prograf) 1 mg DAILY ORAL 01/13/19 09:00 02/04/19 08:59 01/21/19 09:35 Tacrolimus (Prograf) 2 mg BEDTIME ORAL 01/20/19 21:00 01/24/19 20:59 01/20/19 20:37 Trazodone HCl (Desyrel) 25 mg HSPRN PRN ORAL INSOMNIA 01/12/19 20:00 02/03/19 19:59 01/21/19 01:06 Philly Shelby MD Jan 21, 2019 16:07
[2019-01-21] MEDS ORDERED: NS Irrig 1000ml ONE (16:41)
--- NOTE | 2019-01-21 19:08 | NUR ---
HAND-OFF: Report given to PATRICK Zamarripa.
[2019-01-21 20:00] VITALS: BP 131/83
--- NOTE | 2019-01-21 20:26 | Cardiology Progress Note ---
Assessment/Plan Status Narrative 1. Malfunctioning Kock pouch continent ileostomy. 2. History of ulcerative colitis. 3. History of primary sclerosing cholangitis. 4. Status post multiple abdominal operations. 4.1. Appendectomy in 1964. 4.2. Proctocolectomy and Kock pouch in 1978. 4.3. Total abdominal hysterectomy and bilateral salpingo-oophorectomy 1983 4.4. Cholecystectomy in 1985. 4.5. Orthotopic liver transplantation in 1999. 4.6. Revision of Kock pouch and repair of fistula in 2010. HTN- New onset- Controlled on Norvasc /Lisinopril and Metoprolol Tachycardia- improved with IV Fluids and Beta Blockers. Renal insuff- Most probably due volume depletion ( High GT output), - Creat 1.3 Volume depletion- high GT output- I/Os negative CT Scan done 01/18- small fluid collections, no obstruction Esophagitis Duodenal narrowing Assessment/Plan Metoprolol 25 mg QD Zestril 40 mg QD. Norvasc 5 mg BID Monitor BP Peripheral IV as per Dr. Sotomayor Clear liquids as per DR. Sotomayor Repeat labs in AM. Encouraged increased ambulation. . Possible PICC line in AM Discussed with RN. Discussed with Dr. Sotomayor. Subjective Cardiovascular: Reports: no symptoms Respiratory: Reports: no symptoms Genitourinary: Reports: no symptoms Subjective Still NPO vomiting x1 today Having out put from ileostomy Has been out of bed, ambulated. Pain controlled Creat 1.3 High output from GT- now being plugged Q2h S/P EGD today- showed gastriris/esophagitis with mid duodenal narrowing 01/21/19- had Gatrografin UGI study, increased ileostomy output. No vomiting today. Objective Last 24 Hour Vital Signs Date Time Temp Pulse Resp B/P (MAP) Pulse Ox O2 Delivery O2 Flow Rate FiO2 01/21/19 18:10 90 135/75 01/21/19 16:00 98.1 90 18 135/75 (95) 95 01/21/19 12:00 98.5 94 18 127/76 (93) 95 01/21/19 09:33 100 143/80 01/21/19 09:33 143/80 01/21/19 09:33 100 143/80 01/21/19 09:00 Room Air 01/21/19 08:00 98.4 100 18 143/80 (101) 96 01/21/19 04:00 98.8 94 18 133/77 (95) 97 01/21/19 00:00 99.0 94 16 145/77 (99) 96 01/20/19 21:00 Room Air General Appearance: no apparent distress, alert Cardiovascular: normal rate, regular rhythm, no gallop/murmur Respiratory/Chest: lungs clear, normal breath sounds Abdomen: non tender, soft, hypoactive bowel sounds Extremities: non-tender, no calf tenderness, no swelling Intake and Output 01/20/19 01/21/19 19:00 07:00 Intake Total 3070.000 ml 1980 ml Output Total 1850 ml 2115 ml Balance 1220.000 ml -135 ml Intake Oral 120 ml 120 ml IV Total 2950.000 ml 1860 ml Output Urine Total 800 ml 900 ml Emesis 375 ml 400 ml Drainage Total 25 ml 25 ml Other 650 ml 790 ml Laboratory Tests Test 01/21/19 04:30 White Blood Count 6.6 K/UL (4.8-10.8) Red Blood Count 3.17 M/UL (4.20-5.40) L Hemoglobin 9.1 G/DL (12.0-16.0) L Hematocrit 28.0 % (37.0-47.0) L Mean Corpuscular Volume 88 FL (80-99) Mean Corpuscular Hemoglobin 28.6 PG (27.0-31.0) Mean Corpuscular Hemoglobin Concent 32.4 G/DL (32.0-36.0) Red Cell Distribution Width 13.4 % (11.6-14.8) Platelet Count 546 K/UL (150-450) H Mean Platelet Volume 5.7 FL (6.5-10.1) L Neutrophils (%) (Auto) 64.4 % (45.0-75.0) Lymphocytes (%) (Auto) 15.4 % (20.0-45.0) L Monocytes (%) (Auto) 7.3 % (1.0-10.0) Eosinophils (%) (Auto) 11.7 % (0.0-3.0) H Basophils (%) (Auto) 1.1 % (0.0-2.0) Sodium Level 137 MMOL/L (136-145) Potassium Level 4.2 MMOL/L (3.5-5.1) Chloride Level 107 MMOL/L (98-107) Carbon Dioxide Level 23 MMOL/L (21-32) Anion Gap 7 mmol/L (5-15) Blood Urea Nitrogen 12 mg/dL (7-18) Creatinine 1.3 MG/DL (0.55-1.30) Estimat Glomerular Filtration Rate 40.9 mL/min (>60) Glucose Level 130 MG/DL (74-106) H Calcium Level 9.7 MG/DL (8.5-10.1) Total Bilirubin 0.3 MG/DL (0.2-1.0) Aspartate Amino Transf (AST/SGOT) 26 U/L (15-37) Alanine Aminotransferase (ALT/SGPT) 37 U/L (12-78) Alkaline Phosphatase 298 U/L (46-116) H Total Protein 6.3 G/DL (6.4-8.2) L Albumin 1.9 G/DL (3.4-5.0) L Globulin 4.4 g/dL Albumin/Globulin Ratio 0.4 (1.0-2.7) L Micha Ziegler MD Jan 21, 2019 20:26
--- NOTE | 2019-01-21 23:58 | NUR ---
NURSES NOTE: Pt found in room, lying in bed, A/OX4, able to communicate needs. VS within normal limits, breathing pattern is even and unlabored, patient denies pain at this moment. Pickett catheter is intact, draining and patent. Urine yellow in color. Gtube, on continuous intermittent medium suctioning and was plugged for 1 hour after 2100 po meds, Cellcept 750 mg and Prograf 2mg, were given. Ilio collecting bag in place. Abdiaziz Spangler d/c. Surgical dressing is dry and intact. At approximately 2200 pt vomited 200cc. Compazine 10mg given, pt reported N/S resolved. Bed at lowest level, call light within reach. Will continue to monitor.
[2019-01-22] VITALS (7 sets, daily range): BP systolic 132–149; BP diastolic 73–86
[2019-01-22] MEDS ORDERED: Heparin1,000 units/500ml Premix(Conc:2 units/ml) ONE (06:00)
[2019-01-22] MEDS ORDERED: Lidocaine 1% Plain 30 ml INJ ONE (06:00)
[2019-01-22 06:32] LABS: BASOPHILS % (AUTO) 1.1 % (0.0-2.0); EOSINOPHILS % (AUTO) 7.5 % (0.0-3.0); HEMATOCRIT 28.4 % (37.0-47.0); HEMOGLOBIN 9.2 G/DL (12.0-16.0); LYMPHOCYTES % (AUTO) 16.9 % (20.0-45.0); MEAN CORPUSCULAR VOLUME 89 FL (80-99); MONOCYTES % (AUTO) 6.3 % (1.0-10.0); NEUTROPHILS % (AUTO) 68.1 % (45.0-75.0); PLATELET COUNT 519 K/UL (150-450); RED BLOOD COUNT 3.18 M/UL (4.20-5.40); RED CELL DISTRIBUTION WIDTH 13.6 % (11.6-14.8); WHITE BLOOD COUNT 7.1 K/UL (4.8-10.8)
[2019-01-22 06:49] LABS: ALANINE AMINOTRANSFERASE 25 U/L (12-78); ALBUMIN 2.1 G/DL (3.4-5.0); ALBUMIN/GLOBULIN RATIO 0.5 (1.0-2.7); ALKALINE PHOSPHATASE 275 U/L (46-116); ANION GAP 11 mmol/L (5-15); ASPARTATE AMINO TRANSFERASE 23 U/L (15-37); BILIRUBIN,TOTAL 0.3 MG/DL (0.2-1.0); BLOOD UREA NITROGEN 8 mg/dL (7-18); CALCIUM 9.2 MG/DL (8.5-10.1); CARBON DIOXIDE 21 MMOL/L (21-32); CHLORIDE 106 MMOL/L (98-107); CREATININE 1.2 MG/DL (0.55-1.30); POTASSIUM 3.8 MMOL/L (3.5-5.1); SODIUM 138 MMOL/L (136-145)
--- NOTE | 2019-01-22 07:26 | NUR ---
HAND-OFF: Report given to PATRICK Chappell. Pt in stable condition.
--- NOTE | 2019-01-22 07:45 | NUR ---
NURSE NOTES: Received report from Dallin NGUYEN. Patient is awake and oriented during rounds, vomited 100mL of green emesis during rounds, patient offered compazine but refuses at this time, states she feels better after vomiting and may need compazine while taking PO meds. G-tube to medium intermittent suction per order, external ileostomy appliance in place with no leaks. IVF running per order through [facility] IV. Dr. Sotomayor called and was informed regarding patient's episode of emesis, per MD patient may remain on clear liquids as tolerated. Patient provided with ice chips and popsicle per request. Will continue to monitor for any further episodes of N/V. Side rails upx2, bed low and locked, call light in reach. Will continue to monitor.
[2019-01-22] MEDS: Mycophenolate 250mg cap ORAL SCH ×2 (09:42→20:38)
[2019-01-22] MEDS: Metoprolol Succinate XL 50mg tab ORAL SCH (09:42)
[2019-01-22] MEDS: Pantoprazole Inj IVP SCH (09:44)
[2019-01-22] MEDS: Lisinopril 20mg tab ORAL SCH (09:44)
--- NOTE | 2019-01-22 10:14 | NUR ---
NURSE NOTES: Administered compazine for nausea prior to PO meds. g-tube plugged per protocol for PO med administration. Will continue to monitor.
[2019-01-22] MEDS ORDERED: Heparin1,000 units/500ml Premix(Conc:2 units/ml) IV PRN (11:30)
[2019-01-22] MEDS ORDERED: Lidocaine 1% Plain 30 ml INJ PRN (11:30)
--- NOTE | 2019-01-22 11:32 | NUR ---
NURSE NOTES: Received call from Dr. Sotomayor. Patient to have PICC line placed. Called Edward in radiology and informed of order for STAT PICC line placement. Per Edward, will be up to get patient for PICC placement approximately 1330. Will continue to monitor.
--- NOTE | 2019-01-22 11:48 | Infectious Diseases Prog Note ---
Assessment/Plan Assessment/Plan ASSESSMENT AND PLAN: 1. leukocytosis, fevers, ? 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 Sotomayor, PATRICK and patient - monitor labs, leukocytosis and fevers resolved - f/u on 2D echo 2. 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 3. Liver transplantation. 4. Sclerosing cholangitis. 5. Ulcerative colitis. 6. The patient is anemic. 7. History of cholecystectomy, appendectomy, hysterectomy, and proctocolectomy. 8. History of multiple abdominal operations. 9. Allergies to codeine, hydromorphone, metoclopramide, morphine, and sulfa. 10. Family doctor is Noncontributory. 11. Social history is negative. 12. MAR was noted. 13. Case discussed with RN. 14. Case discussed with the patient. 15. Continue treatment per Dr. Sotomayor and consultants. Subjective Constitutional: Denies: fever HEENT: Denies: congestion Respiratory: Denies: shortness of breath Cardiovascular: Denies: chest pain Gastrointestinal/Abdominal: Reports: nausea, vomiting Allergies: Coded Allergies: CODEINE (Verified Allergy, Severe, 12/17/18) Face contractions HYDROMORPHONE (Verified Allergy, Severe, Itching, 12/17/18) Itching whole body METOCLOPRAMIDE (Verified Allergy, Severe, 12/17/18) Face contractions MORPHINE (Verified Allergy, Severe, Shortness of Breath, 12/17/18) SULFA (SULFONAMIDE ANTIBIOTICS) (Verified Allergy, Severe, 12/17/18) Face contractions Objective Vital Signs Last 24 Hour Vital Signs Date Time Temp Pulse Resp B/P (MAP) Pulse Ox O2 Delivery O2 Flow Rate FiO2 01/22/19 09:44 135/81 01/22/19 09:44 89 135/81 01/22/19 09:42 89 135/81 01/22/19 09:00 Room Air 01/22/19 08:00 97.8 89 16 135/81 (99) 97 01/22/19 04:00 98.8 89 19 132/73 (92) 97 01/22/19 00:00 98.9 87 19 145/86 (105) 98 01/21/19 21:00 Room Air 01/21/19 20:00 97.9 64 18 131/83 (99) 96 01/21/19 18:10 90 135/75 01/21/19 16:00 98.1 90 18 135/75 (95) 95 01/21/19 12:00 98.5 94 18 127/76 (93) 95 Height (Feet): 5 Height (Inches): 3.00 Weight (Pounds): 134 General Appearance: no acute distress HEENT: normocephalic, atraumatic, anicteric, mucous membranes moist Respiratory/Chest: lungs clear, normal breath sounds, no respiratory distress Cardiovascular: normal rate, regular rhythm, no gallop/murmur Abdomen: normal bowel sounds, soft, non tender, no organomegaly Objective CT scan abdomen and pelvis - 01/18/19 - 1. Evidence of total colectomy. Right lower abdominal wall ostomy is new since prior study. Previously seen left lower quadrant ostomy has been taken down. 2. Prominent proximal duodenum narrowing between the SMA and aorta. Query SMA syndrome. 3. Left lower abdominal wall percutaneous drainage catheter with tip in the right anterior lower abdomen. There is 3.6 x 6 cm fluid collection in the anterior lower pelvis and another loculated 2.8 x 3 cm collection to the right, likely connecting. There are surgical clips associated with the fluid collections and this may be unopacified patulous small bowel, limited as the oral contrast has not reached the distal small bowel loops. Consider delayed imaging. 4. Smaller loculated fluid with small air bubbles in the pelvis, likely due to recent postop changes, cannot exclude fistula or leak. 5. Anterior abdominal wall vertical incision with small fluid along the incision in the subcutaneous soft tissue. 6. Percutaneous gastrostomy tube. 7. Tiny bilateral nonobstructive renal stones. No ureteral stone or renal obstruction. CT abdomen and pelvis - 12/26/18 - Status post recent abdominal surgery with creation of a left lower quadrant Yajaira ileostomy. Good bowel and bag opacification with no evidence of bowel obstruction. Unusual, markedly distended unopacified loop of bowel in the pelvis. Although unopacified, this does not appear to be an abscess as there is a wall and other characteristics more in keeping with bowel. Would consider a large diverticulum or possibly remnant of the previous Kock pouch or part of the small bowel leading to the old pouch as those segments are sometimes quite distended. Status post liver transplant. Status post cholecystectomy. Mild basal atelectasis. Chest x-ray - no pna, report noted CT abdomen/pelvis - 12/30/18 - Impression: Postsurgical changes, as described Unusual tubular structure filled mostly with gas but also some fluid communicating with the small bowel at the site of a right lower quadrant enteroenterostomy. Uncertain as to whether this represents an unusual large diverticulum, a true extraluminal gas collection, or a portion of an old continent ileostomy pouch. This is also previously described Dilated proximal small bowel proximal to the enteroenterostomy with slow forward propulsion of contents. Partial small bowel obstruction not completely excludable although unlikely given evidence of forward propulsion of contrast and filling of the ileostomy on prior 12/26/2018 exam; findings most likely functional in nature. Correlate with clinical findings Small anterior pelvic and deep pelvic fluid pockets, most likely represent retained postoperative fluid collections. Abscess as etiology of any of these not completely excludable; correlation with clinical findings recommended Postsurgical changes of the liver status post transplantation Punctate nonobstructing bilateral intrarenal calculi Bilateral basilar pulmonary parenchymal atelectasis and/or scarring Chest x-ray - 01/07/19 - Images previously reviewed in person with Dr. Sotomayor Interval placement of a right transjugular central line, catheter tip in the region of the high right atrium. Left arm PICC line remains in place with the catheter tip at the cavoatrial junction. No evidence of pneumothorax. No definite focal airspace consolidation or pleural effusion. Surgical clips noted projecting over the upper abdomen. Laboratory Tests Test 01/22/19 04:50 White Blood Count 7.1 K/UL (4.8-10.8) Red Blood Count 3.18 M/UL (4.20-5.40) L Hemoglobin 9.2 G/DL (12.0-16.0) L Hematocrit 28.4 % (37.0-47.0) L Mean Corpuscular Volume 89 FL (80-99) Mean Corpuscular Hemoglobin 29.1 PG (27.0-31.0) Mean Corpuscular Hemoglobin Concent 32.5 G/DL (32.0-36.0) Red Cell Distribution Width 13.6 % (11.6-14.8) Platelet Count 519 K/UL (150-450) H Mean Platelet Volume 5.4 FL (6.5-10.1) L Neutrophils (%) (Auto) 68.1 % (45.0-75.0) Lymphocytes (%) (Auto) 16.9 % (20.0-45.0) L Monocytes (%) (Auto) 6.3 % (1.0-10.0) Eosinophils (%) (Auto) 7.5 % (0.0-3.0) H Basophils (%) (Auto) 1.1 % (0.0-2.0) Sodium Level 138 MMOL/L (136-145) Potassium Level 3.8 MMOL/L (3.5-5.1) Chloride Level 106 MMOL/L (98-107) Carbon Dioxide Level 21 MMOL/L (21-32) Anion Gap 11 mmol/L (5-15) Blood Urea Nitrogen 8 mg/dL (7-18) Creatinine 1.2 MG/DL (0.55-1.30) Estimat Glomerular Filtration Rate 44.8 mL/min (>60) Glucose Level 150 MG/DL (74-106) H Calcium Level 9.2 MG/DL (8.5-10.1) Total Bilirubin 0.3 MG/DL (0.2-1.0) Aspartate Amino Transf (AST/SGOT) 23 U/L (15-37) Alanine Aminotransferase (ALT/SGPT) 25 U/L (12-78) Alkaline Phosphatase 275 U/L (46-116) H Total Protein 6.4 G/DL (6.4-8.2) Albumin 2.1 G/DL (3.4-5.0) L Globulin 4.3 g/dL Albumin/Globulin Ratio 0.5 (1.0-2.7) L Current Medications Medications (Trade) Dose Ordered Sig/Kajal Route PRN Reason Start Time Stop Time Status Last Admin Dose Admin Acetaminophen (Tylenol) 650 mg Q4H PRN ORAL Mild Pain/Temp > 100.2 01/12/19 13:30 01/25/19 13:29 01/17/19 21:24 Acetaminophen (Tylenol) 650 mg Q6H PRN ORAL headache 01/14/19 09:00 02/13/19 08:59 Al Hydroxide/Mg Hydroxide (Mylanta) 30 ml Q6H PRN ORAL dyspepsia 01/12/19 14:00 01/27/19 13:59 01/16/19 02:35 Amino Acids/ Electrolytes/ Dextrose 2,000 ml @ 83 mls/hr Q24H IV 01/22/19 21:00 02/21/19 20:59 UNV Amlodipine Besylate (Norvasc) 5 mg BID ORAL 01/12/19 18:00 02/02/19 08:59 01/22/19 09:44 Chlorhexidine Gluconate (Yulia-Hex 2%) 1 applic DAILY@2000 TOPIC 01/22/19 20:00 02/21/19 19:59 Clonidine HCl (Catapres Tab) 0.1 mg Q6H PRN SL SBP>150 mmHg 01/21/19 08:45 01/30/19 08:44 Dextrose 1,000 ml @ 0 mls/hr Q24H PRN IV PN interrupted or unavailable 01/22/19 11:30 02/21/19 11:29 UNV Dextrose (Dextrose 50%) 25 ml Q30M PRN IV Hypoglycemia 01/22/19 11:30 02/21/19 11:29 UNV Dextrose (Dextrose 50%) 50 ml Q30M PRN IV Hypoglycemia 01/22/19 11:30 02/21/19 11:29 UNV Dextrose/ Electrolytes 1,000 ml @ 150 mls/hr Q6H40M IV 01/20/19 09:00 02/19/19 08:59 01/22/19 05:30 Diphenhydramine HCl (Benadryl) 50 mg Q4H PRN ORAL Itching 01/12/19 14:00 01/26/19 13:59 Fat Emulsion Intravenous 250 ml @ 10.4 mls/hr Q24H IV 01/22/19 21:00 02/21/19 20:59 UNV Fentanyl (Duragesic) 1 patch Q72H TDERMAL 01/20/19 09:00 01/27/19 08:59 01/20/19 08:43 Fentanyl Citrate (Sublimaze 100 mcg/2 mL) 8 mcg Q2H PRN SUBQ Breakthrough pain 01/21/19 08:45 01/28/19 08:44 Fluconazole/ Sodium Chloride 200 ml @ 200 mls/hr Q24H IV 01/22/19 17:00 01/29/19 16:59 Heparin Sodium/ Sodium Chloride (Heparin 1000 units/500ml Premix) 1,000 unit ONCE PRN IV PICC PLACEMENT 01/22/19 11:30 02/21/19 11:29 Insulin Aspart (NovoLOG) Q6HR SUBQ 01/22/19 12:00 02/21/19 11:59 UNV Levothyroxine Sodium (Synthroid) 100 mcg DAILY IV 01/13/19 09:00 02/04/19 08:59 01/22/19 09:45 Lidocaine HCl (Xylocaine 1% 30ml) 30 ml ONCE PRN INJ PICC PLACEMENT 01/22/19 11:30 01/22/19 23:59 Lidocaine HCl (Xylocaine Jelly 2%) 1 applic Q3H PRN TOPIC BURNING AROUND MEATUS 01/14/19 17:15 02/13/19 17:14 01/17/19 12:50 Lisinopril (Prinivil) 40 mg DAILY ORAL 01/13/19 09:00 01/30/19 08:59 01/22/19 09:44 Metoprolol Succinate (Toprol XL) 50 mg DAILY ORAL 01/13/19 09:00 01/23/19 08:59 01/22/19 09:42 Miscellaneous Medication (fentaNYL Destruction) 1 ea Q72H MISC 01/20/19 08:59 02/19/19 08:58 01/20/19 08:42 Mycophenolate Mofetil (Cellcept) 750 mg Q12HR ORAL 01/12/19 21:00 01/24/19 08:59 01/22/19 09:42 Naloxone HCl (Narcan) 0.1 mg PRN IV Sedation scale 3 or 4 01/12/19 13:30 02/03/19 13:44 Ondansetron HCl (Zofran) 4 mg Q6H PRN IVP Nausea & Vomiting 01/18/19 10:00 01/26/19 09:59 01/22/19 05:28 Pantoprazole (Protonix) 40 mg DAILY IVP 01/13/19 09:00 01/25/19 08:59 01/22/19 09:44 Phytonadione (Vitamin K) 10 mg ONCE A WEEK SUBQ 01/22/19 12:00 02/21/19 11:59 Prochlorperazine (Compazine) 10 mg Q6H PRN IVP Nausea & Vomiting 01/17/19 14:00 01/24/19 19:59 01/22/19 09:41 Tacrolimus (Prograf) 1 mg DAILY ORAL 01/13/19 09:00 02/04/19 08:59 01/22/19 09:46 Tacrolimus (Prograf) 2 mg BEDTIME ORAL 01/20/19 21:00 01/24/19 20:59 01/21/19 21:00 Trazodone HCl (Desyrel) 25 mg HSPRN PRN ORAL INSOMNIA 01/12/19 20:00 02/03/19 19:59 01/21/19 01:06 Philly Shelby MD Jan 22, 2019 11:48
--- NOTE | 2019-01-22 11:55 | GI Progress Note ---
Assessment/Plan Problems: (1) Malfunctioning Kock Pouch (2) History of liver transplant ICD Codes: Z94.4 - Liver transplant status SNOMED: [id number] Status: unchanged Status Narrative Discussed with Dr. Dozier Assessment/Plan s/p EGD SUMMARY OF FINDINGS: 1. Gastritis, status post biopsy. 2. Esophagitis. 3. Duodenal diverticulum. 4. Narrowing in the area of the second portion of the duodenum at the area where the diverticulum is, possibly external compression. LFTs>>> stable now Unable to tolerate clear liquid diet RECOMMENDATIONS: Follow-up surgical recommendations, plan for PICC placement and TPN PPI cellcept 750 BID Prograf 3 gm per day monitor for Lyte abx per ID GT to suction cont compazine and Zofran supportive care will fu The patient was seen and examined at bedside and all new and available data was reviewed in the patients chart. I agree with the above findings, impression and plan. (Patient seen earlier today. Signature stamp does not reflect patient encounter time.). - Max Dozier MD Subjective Subjective nausea Vomiting Unable to tolerate clear liquid diet Objective Last 24 Hour Vital Signs Date Time Temp Pulse Resp B/P (MAP) Pulse Ox O2 Delivery O2 Flow Rate FiO2 01/22/19 09:44 135/81 01/22/19 09:44 89 135/81 01/22/19 09:42 89 135/81 01/22/19 09:00 Room Air 01/22/19 08:00 97.8 89 16 135/81 (99) 97 01/22/19 04:00 98.8 89 19 132/73 (92) 97 01/22/19 00:00 98.9 87 19 145/86 (105) 98 01/21/19 21:00 Room Air 01/21/19 20:00 97.9 64 18 131/83 (99) 96 01/21/19 18:10 90 135/75 01/21/19 16:00 98.1 90 18 135/75 (95) 95 01/21/19 12:00 98.5 94 18 127/76 (93) 95 Intake and Output 01/21/19 01/22/19 18:59 06:59 Intake Total 1540 ml 1530 ml Output Total 2195 ml 2425 ml Balance -655 ml -895 ml Intake Oral 240 ml 480 ml IV Total 1300 ml 1050 ml Output Urine Total 850 ml 1500 ml Emesis 200 ml Other 1345 ml 725 ml Laboratory Tests Test 01/22/19 04:50 White Blood Count 7.1 K/UL (4.8-10.8) Red Blood Count 3.18 M/UL (4.20-5.40) L Hemoglobin 9.2 G/DL (12.0-16.0) L Hematocrit 28.4 % (37.0-47.0) L Mean Corpuscular Volume 89 FL (80-99) Mean Corpuscular Hemoglobin 29.1 PG (27.0-31.0) Mean Corpuscular Hemoglobin Concent 32.5 G/DL (32.0-36.0) Red Cell Distribution Width 13.6 % (11.6-14.8) Platelet Count 519 K/UL (150-450) H Mean Platelet Volume 5.4 FL (6.5-10.1) L Neutrophils (%) (Auto) 68.1 % (45.0-75.0) Lymphocytes (%) (Auto) 16.9 % (20.0-45.0) L Monocytes (%) (Auto) 6.3 % (1.0-10.0) Eosinophils (%) (Auto) 7.5 % (0.0-3.0) H Basophils (%) (Auto) 1.1 % (0.0-2.0) Sodium Level 138 MMOL/L (136-145) Potassium Level 3.8 MMOL/L (3.5-5.1) Chloride Level 106 MMOL/L (98-107) Carbon Dioxide Level 21 MMOL/L (21-32) Anion Gap 11 mmol/L (5-15) Blood Urea Nitrogen 8 mg/dL (7-18) Creatinine 1.2 MG/DL (0.55-1.30) Estimat Glomerular Filtration Rate 44.8 mL/min (>60) Glucose Level 150 MG/DL (74-106) H Calcium Level 9.2 MG/DL (8.5-10.1) Total Bilirubin 0.3 MG/DL (0.2-1.0) Aspartate Amino Transf (AST/SGOT) 23 U/L (15-37) Alanine Aminotransferase (ALT/SGPT) 25 U/L (12-78) Alkaline Phosphatase 275 U/L (46-116) H Total Protein 6.4 G/DL (6.4-8.2) Albumin 2.1 G/DL (3.4-5.0) L Globulin 4.3 g/dL Albumin/Globulin Ratio 0.5 (1.0-2.7) L Height (Feet): 5 Height (Inches): 3.00 Weight (Pounds): 134 General Appearance: WD/WN, no apparent distress, alert Cardiovascular: normal rate Respiratory/Chest: normal breath sounds, no respiratory distress Abdominal Exam: normal bowel sounds, non tender, soft, other - Ileostomy Extremities: normal range of motion, non-tender Jeyson Luna NP Jan 22, 2019 11:55
--- NOTE | 2019-01-22 12:10 | NUR ---
RD ASSESSMENT & RECOMMENDATIONS SEE CARE ACTIVITY FOR COMPLETE ASSESSMENT DAILY ESTIMATED NEEDS: Needs based on Surgery 59.8kg 25-30 kcals/kg 5175-5778 total kcals 1-2 g protein/kg 60-120 g total protein 25-30 mL/kg 2790-1533 total fluid mLs NUTRITION DIAGNOSIS: Altered GI fxn r/t h/o UC and malfunctioning kock pouch as evidenced by pt is s/p kock pouch takedown w/ creation of Yajaira ileo, now s/p ex lap, segmental small bowel resections and relocation of ileostomy, back to NPO, TPN on hold at this time, s/p PICC line removal. CURRENT DIET:CLD PARENTERAL NUTRITION RECOMMENDATIONS: D/AA Rate: 65 IL Rate: 9 Total Rate: 74 Volume: 1776 % Dextrose: 18 % AA: 5.5 Energy (kcals/kg): 1730 Protein (g/kg protein): 86 Nonprotein KCALS: 1386 GIR (mg CHO/kg/min): 3.3 % Fat KCALS: 25 NCP: N Ratio: 101:1 TPN Comment: - When able to resume TPN: rec D18% + AA 5.5% @65ml/hr + 20% IL @9ml/hr - TPN at goal meets 100% est kcal/prot needs (29 kcal/kg and 1.4g prot/kg) - Initiate at rate per MD ADDITIONAL RECOMMENDATIONS: 1) Obtain a standing weight as pt is able to ambulate in halls 2) Monitor NPO status -> monitor for ability to resume TPN 3) Monitor lytes, replete as needed Monitor LFT's, BG, Lytes w/ TPN . .
[2019-01-22] MEDS: Phytonadione 10 mg/mL 1ml amp SUBQ SCH (13:29)
--- NOTE | 2019-01-22 13:40 | NUR ---
NURSE NOTES: Patient's ileostomy bag started leaking. Called Fabien ABREU. Michaelsha came and changed ileostomy bag. Called radiology, Gian in radiology stated they will be up in 30 minutes to an hour to get patient. Patient is walking with PT now.
--- NOTE | 2019-01-22 13:41 | NUR ---
CASE MANAGEMENT:REVIEW 01/22/19 SI: POD #35...S/P RESECTION OF FAILED KOCJ POUCH POD#18...EXPL LAP W/SMALL BOWEL RESECTION AND RELOCATION OF ILEOSTOMY POD #15...S/P REPAIR OF STAPLE LINE DEHISCENCE POD #13..S/P REMOVE WOUND VAC. REPAIR BOWEL LEAK. 97.8 89 16 135/81 97% ON RA H/H-9.2/28.4 IS: IVF@150/HR FENTANYL PATCH Q72 IV DIFLUCAN Q24 CELLCEPT PO Q12 PROGRAF PO QHS LIDOCAINE PATCH NORVASC PO BID IV SYNTHROID QD LISINOPRIL PO QD TOPROL XL NG QD : MED/SURG STATUS 3 EAST PLAN: RESTART TPN/IL
--- NOTE | 2019-01-22 14:50 | NUR ---
NURSE NOTES: Patient taken down for PICC placement by Va from radiology.
--- NOTE | 2019-01-22 15:34 | NUR ---
RADIOLOGY NOTE: LEFT UPPER EXTREMITY PICC PLACED
--- NOTE | 2019-01-22 15:48 | NUR ---
NURSE NOTES: Patient returned from PICC placement via wheelchair. MARILY PICC in place with tegaderm dressing, biopatch, and statlock. Patient hooked back up to g-tube suction.
--- NOTE | 2019-01-22 15:52 | Diagnostic Imaging Report ---
Indication: terminal operator venous access Findings: After the indications, procedure, risks, complications, and alternatives of the procedure were explained, written informed consent was obtained. The left upper extremity was prepped with alcohol. All elements of maximal sterile barrier technique were followed including usage of a cap, mask, sterile gown, sterile gloves, hand hygiene and a large sterile sheet. Sonographic evaluation of the upper extremity was performed demonstrating a patent and compressible brachial vein. Access was obtained under real-time ultrasound guidance (with utilization of sterile gel and sterile probe cover) and digital image was saved and archived. An .018 wire was introduced. Needle exchanged for a 5 [place]an peel-away sheath. Measurements were obtained. A 5 [place] dual-lumen Power PICC line catheter was cut to 35 cm and introduced over the wire. Peel-away sheath and wire were removed.Catheter was secured to the skin using 2-0 Prolene suture. Both ports aspirate and flush easily. A single fluoroscopic image shows the distal tip in the superior vena cava. Total fluoroscopic time was 11.6 seconds. Impression: Successful placement of an upper extremity PICC line catheter
--- NOTE | 2019-01-22 16:05 | NUR ---
*-*INSURANCE *-* UPDATED CLINICALS AND REVIEW HAVE BEEN FAXED TO: [facility]#[phone]
--- NOTE | 2019-01-22 16:10 | NUR ---
NURSE NOTES: Informed Dr. Sotomayor of PICC line insertion x-ray results. gave order ok to use PICC line and manage central line per policy. Order entered, will carry out.
--- NOTE | 2019-01-22 16:11 | General Progress Note ---
Progress Note Progress Note Afebrile. Feels okay but still with intermittent emesis and high volume gastrostomy output due to narrowing of distal duodenum from extrinsic compression likely edema post-op Abdomen soft, incisions healing. Urine 2350 Gastrostomy 1495+emesis 200cc = 1695 Ileostomy 575 (increased) BUN 8 Cr 1.2 Platelets down 519,000 alk phos down 275 Albumin 2.1 Imp. slowly resolving extrinsic compression of duodenum with partial obstruction Plan: New PICC in place - start TPN tonight Gastrostomy to suction allow clear liquids and bread po will need to d/c urinary morales soon (18 days post repair of intra- operative cystotomy) Lars Sotomayor MD Jan 22, 2019 16:11
--- NOTE | 2019-01-22 17:11 | NUR ---
NURSE NOTES: Leaking noted from external ileostomy appliance. Changed external appliance and provided peristomal skin care. Will continue to monitor.
--- NOTE | 2019-01-22 17:15 | Cardiology Progress Note ---
Assessment/Plan Status Narrative 1. Malfunctioning Kock pouch continent ileostomy. 2. History of ulcerative colitis. 3. History of primary sclerosing cholangitis. 4. Status post multiple abdominal operations. 4.1. Appendectomy in 1964. 4.2. Proctocolectomy and Kock pouch in 1978. 4.3. Total abdominal hysterectomy and bilateral salpingo-oophorectomy 1983 4.4. Cholecystectomy in 1985. 4.5. Orthotopic liver transplantation in 1999. 4.6. Revision of Kock pouch and repair of fistula in 2010. HTN- New onset- Controlled on Norvasc /Lisinopril and Metoprolol Tachycardia- improved with IV Fluids and Beta Blockers. Renal insuff- Most probably due volume depletion ( High GT output), - Creat 1.3 Volume depletion- high GT output- I/Os negative CT Scan done 01/18- small fluid collections, no obstruction Esophagitis Duodenal narrowing Assessment/Plan Metoprolol 25 mg QD Zestril 40 mg QD. Norvasc 5 mg BID Monitor BP Peripheral IV as per Dr. Sotomayor Diet as per DR. Sotomayor Repeat labs in AM. Encouraged increased ambulation. PICC done Discussed with RN. Discussed with Dr. Sotomayor. Subjective Cardiovascular: Reports: no symptoms Respiratory: Reports: no symptoms Gastrointestinal/Abdominal: Reports: vomiting - x1 this morning Genitourinary: Reports: no symptoms Subjective Still NPO vomiting x1 today Having out put from ileostomy Has been out of bed, ambulated. Pain controlled Creat 1.3 High output from GT- now being plugged Q2h S/P EGD today- showed gastriris/esophagitis with mid duodenal narrowing 01/21/19- had Gatrografin UGI study, increased ileostomy output. No vomiting today. 01/22/10- has tolerated clear liquids, had vomiting x1 this morning. Objective Last 24 Hour Vital Signs Date Time Temp Pulse Resp B/P (MAP) Pulse Ox O2 Delivery O2 Flow Rate FiO2 01/22/19 16:00 97.9 83 16 140/74 (96) 96 01/22/19 12:00 98.5 90 17 149/77 (101) 96 01/22/19 09:44 135/81 01/22/19 09:44 89 135/81 01/22/19 09:42 89 135/81 01/22/19 09:00 Room Air 01/22/19 08:00 97.8 89 16 135/81 (99) 97 01/22/19 04:00 98.8 89 19 132/73 (92) 97 01/22/19 00:00 98.9 87 19 145/86 (105) 98 01/21/19 21:00 Room Air 01/21/19 20:00 97.9 64 18 131/83 (99) 96 01/21/19 18:10 90 135/75 General Appearance: no apparent distress, alert Cardiovascular: normal rate, regular rhythm, no gallop/murmur Respiratory/Chest: lungs clear Abdomen: non tender, soft, hypoactive bowel sounds Extremities: non-tender, normal inspection, no calf tenderness, no swelling Intake and Output 01/21/19 01/22/19 19:00 07:00 Intake Total 1540 ml 1530 ml Output Total 2195 ml 2425 ml Balance -655 ml -895 ml Intake Oral 240 ml 480 ml IV Total 1300 ml 1050 ml Output Urine Total 850 ml 1500 ml Emesis 200 ml Other 1345 ml 725 ml Laboratory Tests Test 01/22/19 04:50 White Blood Count 7.1 K/UL (4.8-10.8) Red Blood Count 3.18 M/UL (4.20-5.40) L Hemoglobin 9.2 G/DL (12.0-16.0) L Hematocrit 28.4 % (37.0-47.0) L Mean Corpuscular Volume 89 FL (80-99) Mean Corpuscular Hemoglobin 29.1 PG (27.0-31.0) Mean Corpuscular Hemoglobin Concent 32.5 G/DL (32.0-36.0) Red Cell Distribution Width 13.6 % (11.6-14.8) Platelet Count 519 K/UL (150-450) H Mean Platelet Volume 5.4 FL (6.5-10.1) L Neutrophils (%) (Auto) 68.1 % (45.0-75.0) Lymphocytes (%) (Auto) 16.9 % (20.0-45.0) L Monocytes (%) (Auto) 6.3 % (1.0-10.0) Eosinophils (%) (Auto) 7.5 % (0.0-3.0) H Basophils (%) (Auto) 1.1 % (0.0-2.0) Sodium Level 138 MMOL/L (136-145) Potassium Level 3.8 MMOL/L (3.5-5.1) Chloride Level 106 MMOL/L (98-107) Carbon Dioxide Level 21 MMOL/L (21-32) Anion Gap 11 mmol/L (5-15) Blood Urea Nitrogen 8 mg/dL (7-18) Creatinine 1.2 MG/DL (0.55-1.30) Estimat Glomerular Filtration Rate 44.8 mL/min (>60) Glucose Level 150 MG/DL (74-106) H Calcium Level 9.2 MG/DL (8.5-10.1) Total Bilirubin 0.3 MG/DL (0.2-1.0) Aspartate Amino Transf (AST/SGOT) 23 U/L (15-37) Alanine Aminotransferase (ALT/SGPT) 25 U/L (12-78) Alkaline Phosphatase 275 U/L (46-116) H Total Protein 6.4 G/DL (6.4-8.2) Albumin 2.1 G/DL (3.4-5.0) L Globulin 4.3 g/dL Albumin/Globulin Ratio 0.5 (1.0-2.7) L Micha Ziegler MD Jan 22, 2019 17:14
--- NOTE | 2019-01-22 19:00 | NUR ---
NURSE NOTES: Total ileo output: 250mL Total g-tube output: 770mL Patient had episode of emesis x1 this morning, but no further episodes during my shift. Patient is tolerating clear liquid diet with small amounts of solid food well.
--- NOTE | 2019-01-22 19:00 | NUR ---
NURSE NOTES: Patient reported leaking from ileostomy again. Appliance changed and skin care done by myself and charge nurse Nurys.
--- NOTE | 2019-01-22 19:30 | NUR ---
HAND-OFF: Report given to Loraine NGUYEN.
[2019-01-22] MEDS ORDERED: Dextrose 10% 1,000 ML IV PRN (20:00)
[2019-01-22] MEDS: Dyna-Hex 2% Top Sol 2oz TOPIC SCH (20:37)
[2019-01-22] MEDS: Fat Emulsion Iv 20% 216 ML in Tpn 1,560 ML IV SCH (20:41)
[2019-01-22] MEDS ORDERED: Fat Emulsion Iv 20% 250 ML IV SCH (21:00)
[2019-01-22] MEDS ORDERED: Tpn 2,000 ML IV SCH (21:00)
[2019-01-22] MEDS: TraZODone HCl 25 mg tablet ORAL PRN (22:27)
--- NOTE | 2019-01-22 22:37 | NUR ---
NURSE NOTE: Pt is A/Ox4 with stable VS. Orders reviewed and physical assessment completed. Pt denies any pain. Pt had small emesis x1 50mL while G-tube was clamped for PO meds intake but refused antiemetic meds. Will continue to monitor.
[2019-01-22] MEDS: NovoLOG Insulin Flexpen SUBQ SCH (23:37)
[2019-01-23 04:13] VITALS: BP 141/75
[2019-01-23 05:13] LABS: BASOPHILS % (AUTO) 0.6 % (0.0-2.0); EOSINOPHILS % (AUTO) 4.2 % (0.0-3.0); HEMATOCRIT 27.2 % (37.0-47.0); MEAN CORPUSCULAR VOLUME 88 FL (80-99); MONOCYTES % (AUTO) 4.4 % (1.0-10.0); NEUTROPHILS % (AUTO) 76.9 % (45.0-75.0); PLATELET COUNT 480 K/UL (150-450); RED BLOOD COUNT 3.08 M/UL (4.20-5.40); RED CELL DISTRIBUTION WIDTH 13.8 % (11.6-14.8); WHITE BLOOD COUNT 8.9 K/UL (4.8-10.8)
[2019-01-23 05:39] LABS: PHOSPHORUS 2.6 MG/DL (2.5-4.9)
[2019-01-23 05:41] LABS: ALANINE AMINOTRANSFERASE 24 U/L (12-78); ALBUMIN/GLOBULIN RATIO 0.5 (1.0-2.7); ALKALINE PHOSPHATASE 249 U/L (46-116); ANION GAP 8 mmol/L (5-15); ASPARTATE AMINO TRANSFERASE 21 U/L (15-37); BILIRUBIN,TOTAL 0.2 MG/DL (0.2-1.0); BLOOD UREA NITROGEN 8 mg/dL (7-18); CALCIUM 8.9 MG/DL (8.5-10.1); CARBON DIOXIDE 23 MMOL/L (21-32); CHLORIDE 106 MMOL/L (98-107); CREATININE 1.2 MG/DL (0.55-1.30); POTASSIUM 3.6 MMOL/L (3.5-5.1); SODIUM 137 MMOL/L (136-145)
[2019-01-23] MEDS: NovoLOG Insulin Flexpen SUBQ SCH ×3 (06:03→17:42)
--- NOTE | 2019-01-23 07:44 | NUR ---
NURSE NOTES: Received report from PATRICK Baron. Rounding done with outgoing nurse. Pt a/o x 4, in bed, having breakfast. No N/V noted. Pt stat abdominal pain level is 1/10. GT is with intermittent medium suction. Bed in lowest position, call light within reach. Will continue to monitor.
[2019-01-23 08:00] VITALS: BP 136/79
[2019-01-23] MEDS: fentaNYL Destruction MISC SCH (08:59)
[2019-01-23] MEDS: Mycophenolate 250mg cap ORAL SCH ×2 (09:17→20:44)
[2019-01-23] MEDS: Pantoprazole Inj IVP SCH (09:17)
[2019-01-23] MEDS: Lisinopril 20mg tab ORAL SCH (09:18)
[2019-01-23] MEDS: Metoprolol Succinate XL 50mg tab ORAL SCH (09:18)
--- NOTE | 2019-01-23 09:20 | NUR ---
NURSE NOTES: Ileostomy bag was leaking. Fabien, wound care nurse came and changed. No discomfort noted.
--- NOTE | 2019-01-23 11:29 | NUR ---
NURSE NOTES: Ileostomy bag was falling off. Ileostomy bag was changed by myself.
--- NOTE | 2019-01-23 11:29 | NUR ---
PT NOTE Attempted to see patient for PT treatment. Patient not available due to nursing procedure. Will re-attempt later as schedule permits.
--- NOTE | 2019-01-23 11:33 | General Progress Note ---
Assessment/Plan Status: unchanged Assessment/Plan: fu LFTs>>> stable now cellcept 750 BID prograft 3 gm per day monitor for Lyte protonix fu surg recs abx per ID GT to suction cont compazine and Zofran supportive care feeling better over night no nausea good out put from ostomy site TPN will change synthroid to po per patient request will D/W surg Subjective ROS Limited/Unobtainable: Yes Allergies: Coded Allergies: CODEINE (Verified Allergy, Severe, 12/17/18) Face contractions HYDROMORPHONE (Verified Allergy, Severe, Itching, 12/17/18) Itching whole body METOCLOPRAMIDE (Verified Allergy, Severe, 12/17/18) Face contractions MORPHINE (Verified Allergy, Severe, Shortness of Breath, 12/17/18) SULFA (SULFONAMIDE ANTIBIOTICS) (Verified Allergy, Severe, 12/17/18) Face contractions Objective Last 24 Hour Vital Signs Date Time Temp Pulse Resp B/P (MAP) Pulse Ox O2 Delivery O2 Flow Rate FiO2 01/23/19 09:18 98 136/79 01/23/19 09:18 136/79 01/23/19 09:18 98 136/79 01/23/19 09:00 Room Air 01/23/19 08:00 97.6 98 18 136/79 (98) 98 01/23/19 08:00 97.6 98 18 136/79 (98) 98 01/23/19 04:13 97.7 88 18 141/75 (97) 97 01/22/19 23:43 98.2 85 16 136/74 (94) 97 01/22/19 21:00 Room Air 01/22/19 20:00 98.4 83 18 145/79 (101) 96 01/22/19 19:05 98 Room Air 21 01/22/19 18:41 83 140/74 01/22/19 16:00 97.9 83 16 140/74 (96) 96 01/22/19 12:00 98.5 90 17 149/77 (101) 96 Intake and Output 01/22/19 01/23/19 18:59 06:59 Intake Total 2650 ml 1770 ml Output Total 2345 ml 2150 ml Balance 305 ml -380 ml Intake Oral 1100 ml 120 ml IV Total 1550 ml 1650 ml Output Urine Total 1225 ml 1500 ml Emesis 100 ml 50 ml Other 1020 ml 600 ml Laboratory Tests 01/23/19 04:35: White Blood Count 8.9, Red Blood Count 3.08L, Hemoglobin 9.0L, Hematocrit 27.2L , Mean Corpuscular Volume 88, Mean Corpuscular Hemoglobin 29.3, Mean Corpuscular Hemoglobin Concent 33.1, Red Cell Distribution Width 13.8, Platelet Count 480H, Mean Platelet Volume 5.2L, Neutrophils (%) (Auto) 76.9H, Lymphocytes (%) (Auto) 14.0L, Monocytes (%) (Auto) 4.4, Eosinophils (%) (Auto) 4.2H, Basophils (%) (Auto) 0.6, Sodium Level 137, Potassium Level 3.6, Chloride Level 106, Carbon Dioxide Level 23, Anion Gap 8, Blood Urea Nitrogen 8, Creatinine 1.2, Estimat Glomerular Filtration Rate 44.8, Glucose Level 187H, Calcium Level 8.9, Phosphorus Level 2.6, Magnesium Level 1.0L, Total Bilirubin 0.2, Aspartate Amino Transf (AST/SGOT) 21, Alanine Aminotransferase (ALT/SGPT) 24, Alkaline Phosphatase 249H, Total Protein 6.3L, Albumin 2.0L, Globulin 4.3, Albumin/Globulin Ratio 0.5L Height (Feet): 5 Height (Inches): 3.00 Weight (Pounds): 134 General Appearance: alert EENT: normal ENT inspection Neck: supple Cardiovascular: normal rate Respiratory/Chest: decreased breath sounds Abdomen: soft, hypoactive bowel sounds Extremities: non-tender Max Dozier MD Jan 23, 2019 11:33
[2019-01-23 12:00] VITALS: BP 146/71
--- NOTE | 2019-01-23 12:18 | NUR ---
NURSE NOTES: Dr. Sanchez ordered regular diet, Magnesium 2gm IVPB, Clamping GT. Order read back and put it in.
--- NOTE | 2019-01-23 12:46 | Surgery Progress Note ---
Surgery Progress Note Subjective Additional Comments no acute events states she feels better has not had nausea or emesis in 24hrs g tube output not much comfortable pain minimal good urine output Objective Last 24 Hour Vital Signs Date Time Temp Pulse Resp B/P (MAP) Pulse Ox O2 Delivery O2 Flow Rate FiO2 01/23/19 09:18 98 136/79 01/23/19 09:18 136/79 01/23/19 09:18 98 136/79 01/23/19 09:00 Room Air 01/23/19 08:00 97.6 98 18 136/79 (98) 98 01/23/19 08:00 97.6 98 18 136/79 (98) 98 01/23/19 04:13 97.7 88 18 141/75 (97) 97 01/22/19 23:43 98.2 85 16 136/74 (94) 97 01/22/19 21:00 Room Air 01/22/19 20:00 98.4 83 18 145/79 (101) 96 01/22/19 19:05 98 Room Air 21 01/22/19 18:41 83 140/74 01/22/19 16:00 97.9 83 16 140/74 (96) 96 I&O Intake and Output 01/22/19 01/23/19 18:59 06:59 Intake Total 2650 ml 1770 ml Output Total 2345 ml 2150 ml Balance 305 ml -380 ml Intake Oral 1100 ml 120 ml IV Total 1550 ml 1650 ml Output Urine Total 1225 ml 1500 ml Emesis 100 ml 50 ml Other 1020 ml 600 ml Dressing: dry Wound: clean Drains: other Cardiovascular: RSR Respiratory: clear Abdomen: soft, flat, non-tender, present bowel sounds, other, non-distended Extremities: no edema, no tenderness, no cyanosis Laboratory Tests Test 01/23/19 04:35 White Blood Count 8.9 K/UL (4.8-10.8) Red Blood Count 3.08 M/UL (4.20-5.40) L Hemoglobin 9.0 G/DL (12.0-16.0) L Hematocrit 27.2 % (37.0-47.0) L Mean Corpuscular Volume 88 FL (80-99) Mean Corpuscular Hemoglobin 29.3 PG (27.0-31.0) Mean Corpuscular Hemoglobin Concent 33.1 G/DL (32.0-36.0) Red Cell Distribution Width 13.8 % (11.6-14.8) Platelet Count 480 K/UL (150-450) H Mean Platelet Volume 5.2 FL (6.5-10.1) L Neutrophils (%) (Auto) 76.9 % (45.0-75.0) H Lymphocytes (%) (Auto) 14.0 % (20.0-45.0) L Monocytes (%) (Auto) 4.4 % (1.0-10.0) Eosinophils (%) (Auto) 4.2 % (0.0-3.0) H Basophils (%) (Auto) 0.6 % (0.0-2.0) Sodium Level 137 MMOL/L (136-145) Potassium Level 3.6 MMOL/L (3.5-5.1) Chloride Level 106 MMOL/L (98-107) Carbon Dioxide Level 23 MMOL/L (21-32) Anion Gap 8 mmol/L (5-15) Blood Urea Nitrogen 8 mg/dL (7-18) Creatinine 1.2 MG/DL (0.55-1.30) Estimat Glomerular Filtration Rate 44.8 mL/min (>60) Glucose Level 187 MG/DL (74-106) H Calcium Level 8.9 MG/DL (8.5-10.1) Phosphorus Level 2.6 MG/DL (2.5-4.9) Magnesium Level 1.0 MG/DL (1.8-2.4) L Total Bilirubin 0.2 MG/DL (0.2-1.0) Aspartate Amino Transf (AST/SGOT) 21 U/L (15-37) Alanine Aminotransferase (ALT/SGPT) 24 U/L (12-78) Alkaline Phosphatase 249 U/L (46-116) H Total Protein 6.3 G/DL (6.4-8.2) L Albumin 2.0 G/DL (3.4-5.0) L Globulin 4.3 g/dL Albumin/Globulin Ratio 0.5 (1.0-2.7) L Plan Problems: (1) Malfunctioning Kock Pouch Assessment & Plan: Doing better in last 24hrs no n/v/f/c labs noted exam as above -regular diet -some reggie removed -sutures removed -g tube capped -keep morales for now -replace electrolytes ordered will follow with recs thank you Kvng Sanchez Jan 23, 2019 12:46
--- NOTE | 2019-01-23 13:47 | Cardiology Progress Note ---
Assessment/Plan Status Narrative 1. Malfunctioning Kock pouch continent ileostomy. 2. History of ulcerative colitis. 3. History of primary sclerosing cholangitis. 4. Status post multiple abdominal operations. 4.1. Appendectomy in 1964. 4.2. Proctocolectomy and Kock pouch in 1978. 4.3. Total abdominal hysterectomy and bilateral salpingo-oophorectomy 1983 4.4. Cholecystectomy in 1985. 4.5. Orthotopic liver transplantation in 1999. 4.6. Revision of Kock pouch and repair of fistula in 2010. HTN- New onset- Controlled on Norvasc /Lisinopril and Metoprolol Tachycardia- improved with IV Fluids and Beta Blockers. Renal insuff- Most probably due volume depletion ( High GT output), - Creat 1.3 Volume depletion- high GT output- I/Os negative CT Scan done 01/18- small fluid collections, no obstruction Esophagitis Duodenal narrowing Assessment/Plan Metoprolol 25 mg QD Zestril 40 mg QD. Norvasc 5 mg BID Monitor BP Peripheral IV as per Dr. Sotomayor Diet as per DR. Sotomayor Repeat labs in AM. Encouraged increased ambulation TPN Discussed with RN. Subjective Cardiovascular: Reports: no symptoms Respiratory: Reports: no symptoms Gastrointestinal/Abdominal: Reports: no symptoms; Denies: abdominal pain Genitourinary: Reports: no symptoms, other - morales Subjective Still NPO vomiting x1 today Having out put from ileostomy Has been out of bed, ambulated. Pain controlled Creat 1.3 High output from GT- now being plugged Q2h S/P EGD today- showed gastriris/esophagitis with mid duodenal narrowing 01/21/19- had Gatrografin UGI study, increased ileostomy output. No vomiting today. 01/22/10- has tolerated clear liquids, had vomiting x1 this morning. 01/23- Started on solid food Objective Last 24 Hour Vital Signs Date Time Temp Pulse Resp B/P (MAP) Pulse Ox O2 Delivery O2 Flow Rate FiO2 01/23/19 12:00 98.6 85 18 146/71 (96) 99 01/23/19 09:18 98 136/79 01/23/19 09:18 136/79 01/23/19 09:18 98 136/79 01/23/19 09:00 Room Air 01/23/19 08:00 97.6 98 18 136/79 (98) 98 01/23/19 08:00 97.6 98 18 136/79 (98) 98 01/23/19 04:13 97.7 88 18 141/75 (97) 97 01/22/19 23:43 98.2 85 16 136/74 (94) 97 01/22/19 21:00 Room Air 01/22/19 20:00 98.4 83 18 145/79 (101) 96 01/22/19 19:05 98 Room Air 21 01/22/19 18:41 83 140/74 01/22/19 16:00 97.9 83 16 140/74 (96) 96 General Appearance: no apparent distress, alert Cardiovascular: normal rate, regular rhythm, no gallop/murmur Respiratory/Chest: lungs clear Abdomen: non tender, hypoactive bowel sounds Extremities: non-tender, normal inspection, no calf tenderness, no swelling Intake and Output 01/22/19 01/23/19 18:59 06:59 Intake Total 2650 ml 1770 ml Output Total 2345 ml 2150 ml Balance 305 ml -380 ml Intake Oral 1100 ml 120 ml IV Total 1550 ml 1650 ml Output Urine Total 1225 ml 1500 ml Emesis 100 ml 50 ml Other 1020 ml 600 ml Laboratory Tests Test 01/23/19 04:35 White Blood Count 8.9 K/UL (4.8-10.8) Red Blood Count 3.08 M/UL (4.20-5.40) L Hemoglobin 9.0 G/DL (12.0-16.0) L Hematocrit 27.2 % (37.0-47.0) L Mean Corpuscular Volume 88 FL (80-99) Mean Corpuscular Hemoglobin 29.3 PG (27.0-31.0) Mean Corpuscular Hemoglobin Concent 33.1 G/DL (32.0-36.0) Red Cell Distribution Width 13.8 % (11.6-14.8) Platelet Count 480 K/UL (150-450) H Mean Platelet Volume 5.2 FL (6.5-10.1) L Neutrophils (%) (Auto) 76.9 % (45.0-75.0) H Lymphocytes (%) (Auto) 14.0 % (20.0-45.0) L Monocytes (%) (Auto) 4.4 % (1.0-10.0) Eosinophils (%) (Auto) 4.2 % (0.0-3.0) H Basophils (%) (Auto) 0.6 % (0.0-2.0) Sodium Level 137 MMOL/L (136-145) Potassium Level 3.6 MMOL/L (3.5-5.1) Chloride Level 106 MMOL/L (98-107) Carbon Dioxide Level 23 MMOL/L (21-32) Anion Gap 8 mmol/L (5-15) Blood Urea Nitrogen 8 mg/dL (7-18) Creatinine 1.2 MG/DL (0.55-1.30) Estimat Glomerular Filtration Rate 44.8 mL/min (>60) Glucose Level 187 MG/DL (74-106) H Calcium Level 8.9 MG/DL (8.5-10.1) Phosphorus Level 2.6 MG/DL (2.5-4.9) Magnesium Level 1.0 MG/DL (1.8-2.4) L Total Bilirubin 0.2 MG/DL (0.2-1.0) Aspartate Amino Transf (AST/SGOT) 21 U/L (15-37) Alanine Aminotransferase (ALT/SGPT) 24 U/L (12-78) Alkaline Phosphatase 249 U/L (46-116) H Total Protein 6.3 G/DL (6.4-8.2) L Albumin 2.0 G/DL (3.4-5.0) L Globulin 4.3 g/dL Albumin/Globulin Ratio 0.5 (1.0-2.7) L Microbiology Date/Time Source Procedure Growth Status 01/21/19 04:40 Blood Blood Culture - Preliminary NO GROWTH AFTER 24 HOURS Resulted 01/21/19 04:30 Blood Blood Culture - Preliminary NO GROWTH AFTER 24 HOURS Resulted Micha Ziegler MD Jan 23, 2019 13:47
--- NOTE | 2019-01-23 15:11 | NUR ---
NURSE NOTES: Ileostomy bag was leaking again. Fabien, wound care nurse came and changed.
[2019-01-23 16:00] VITALS: BP 141/73
--- NOTE | 2019-01-23 16:20 | NUR ---
CASE MANAGEMENT:REVIEW 01/23/19 SI: POD #36...S/P RESECTION OF FAILED KOCJ POUCH POD#19...EXPL LAP W/SMALL BOWEL RESECTION AND RELOCATION OF ILEOSTOMY POD #16...S/P REPAIR OF STAPLE LINE DEHISCENCE POD #14..S/P REMOVE WOUND VAC. REPAIR BOWEL LEAK. 98.6 85 18 146/71 99% ON RA H/H-9.0/27.2 MAG-1.0 IS: IV MAG SULFATE X2 IVF@76/HR FENTANYL PATCH Q72 IV DIFLUCAN Q24 CELLCEPT PO Q12 PROGRAF PO QHS LIDOCAINE PATCH NORVASC PO BID IV SYNTHROID QD LISINOPRIL PO QD TOPROL XL NG QD : MED/SURG STATUS 3 EAST
--- NOTE | 2019-01-23 19:22 | Infectious Diseases Prog Note ---
Assessment/Plan Assessment/Plan ASSESSMENT AND PLAN: 1. hx of leukocytosis, fevers, ? 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 infiltrated iv, ? cellulitis right arm - fluconazole based on jeff species - day # 3 abx - start vancomycin for possible right arm cellulitis, warm compresses, d/w RN - picc line for TPN - cleared from ID standpoint since benefits > risks - f/u on surveillance blood cultures - neg to date - d/w Dr. Sotomayor, PATRICK and patient - monitor labs, leukocytosis and fevers resolved - f/u on 2D echo 2. 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 3. Liver transplantation. 4. Sclerosing cholangitis. 5. Ulcerative colitis. 6. The patient is anemic. 7. History of cholecystectomy, appendectomy, hysterectomy, and proctocolectomy. 8. History of multiple abdominal operations. 9. Allergies to codeine, hydromorphone, metoclopramide, morphine, and sulfa. 10. Family doctor is Noncontributory. 11. Social history is negative. 12. MAR was noted. 13. Case discussed with RN. 14. Case discussed with the patient. 15. Continue treatment per Dr. Sotomayor and consultants. Subjective Constitutional: Denies: fever HEENT: Denies: congestion Respiratory: Denies: shortness of breath Cardiovascular: Denies: chest pain Gastrointestinal/Abdominal: Denies: nausea, vomiting, diarrhea Genitourinary: Reports: other - + morales Neurologic: Denies: headache Psychiatric: Denies: depression Skin: Denies: rash Hematologic: Denies: bleeding Musculoskeletal: Reports: pain - right arm Allergies: Coded Allergies: CODEINE (Verified Allergy, Severe, 12/17/18) Face contractions HYDROMORPHONE (Verified Allergy, Severe, Itching, 12/17/18) Itching whole body METOCLOPRAMIDE (Verified Allergy, Severe, 12/17/18) Face contractions MORPHINE (Verified Allergy, Severe, Shortness of Breath, 12/17/18) SULFA (SULFONAMIDE ANTIBIOTICS) (Verified Allergy, Severe, 12/17/18) Face contractions Objective Vital Signs Last 24 Hour Vital Signs Date Time Temp Pulse Resp B/P (MAP) Pulse Ox O2 Delivery O2 Flow Rate FiO2 01/23/19 17:41 96 141/73 01/23/19 16:00 98.1 96 18 141/73 (95) 98 01/23/19 12:00 98.6 85 18 146/71 (96) 99 01/23/19 09:18 98 136/79 01/23/19 09:18 136/79 01/23/19 09:18 98 136/79 01/23/19 09:00 Room Air 01/23/19 08:00 97.6 98 18 136/79 (98) 98 01/23/19 08:00 97.6 98 18 136/79 (98) 98 01/23/19 04:13 97.7 88 18 141/75 (97) 97 01/22/19 23:43 98.2 85 16 136/74 (94) 97 01/22/19 21:00 Room Air 01/22/19 20:00 98.4 83 18 145/79 (101) 96 Height (Feet): 5 Height (Inches): 3.00 Weight (Pounds): 134 General Appearance: no acute distress HEENT: normocephalic, atraumatic, anicteric, mucous membranes moist Respiratory/Chest: lungs clear, normal breath sounds, no respiratory distress, no accessory muscle use Cardiovascular: normal rate, regular rhythm, no gallop/murmur, no JVD Abdomen: normal bowel sounds, soft, non tender, no organomegaly, non distended Genitourinary: other - no morales Extremities: no cyanosis Skin: no rash 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 Evidence of total colectomy. Right lower abdominal wall ostomy is new since prior study. Previously seen left lower quadrant ostomy has been taken down. 2. Prominent proximal duodenum narrowing between the SMA and aorta. Query SMA syndrome. 3. Left lower abdominal wall percutaneous drainage catheter with tip in the right anterior lower abdomen. There is 3.6 x 6 cm fluid collection in the anterior lower pelvis and another loculated 2.8 x 3 cm collection to the right, likely connecting. There are surgical clips associated with the fluid collections and this may be unopacified patulous small bowel, limited as the oral contrast has not reached the distal small bowel loops. Consider delayed imaging. 4. Smaller loculated fluid with small air bubbles in the pelvis, likely due to recent postop changes, cannot exclude fistula or leak. 5. Anterior abdominal wall vertical incision with small fluid along the incision in the subcutaneous soft tissue. 6. Percutaneous gastrostomy tube. 7. Tiny bilateral nonobstructive renal stones. No ureteral stone or renal obstruction. CT abdomen and pelvis - 12/26/18 - Status post recent abdominal surgery with creation of a left lower quadrant Yajaira ileostomy. Good bowel and bag opacification with no evidence of bowel obstruction. Unusual, markedly distended unopacified loop of bowel in the pelvis. Although unopacified, this does not appear to be an abscess as there is a wall and other characteristics more in keeping with bowel. Would consider a large diverticulum or possibly remnant of the previous Kock pouch or part of the small bowel leading to the old pouch as those segments are sometimes quite distended. Status post liver transplant. Status post cholecystectomy. Mild basal atelectasis. Chest x-ray - no pna, report noted CT abdomen/pelvis - 12/30/18 - Impression: Postsurgical changes, as described Unusual tubular structure filled mostly with gas but also some fluid communicating with the small bowel at the site of a right lower quadrant enteroenterostomy. Uncertain as to whether this represents an unusual large diverticulum, a true extraluminal gas collection, or a portion of an old continent ileostomy pouch. This is also previously described Dilated proximal small bowel proximal to the enteroenterostomy with slow forward propulsion of contents. Partial small bowel obstruction not completely excludable although unlikely given evidence of forward propulsion of contrast and filling of the ileostomy on prior 12/26/2018 exam; findings most likely functional in nature. Correlate with clinical findings Small anterior pelvic and deep pelvic fluid pockets, most likely represent retained postoperative fluid collections. Abscess as etiology of any of these not completely excludable; correlation with clinical findings recommended Postsurgical changes of the liver status post transplantation Punctate nonobstructing bilateral intrarenal calculi Bilateral basilar pulmonary parenchymal atelectasis and/or scarring Chest x-ray - 01/07/19 - Images previously reviewed in person with Dr. Sotomayor Interval placement of a right transjugular central line, catheter tip in the region of the high right atrium. Left arm PICC line remains in place with the catheter tip at the cavoatrial junction. No evidence of pneumothorax. No definite focal airspace consolidation or pleural effusion. Surgical clips noted projecting over the upper abdomen. Microbiology Date/Time Source Procedure Growth Status 01/21/19 04:40 Blood Blood Culture - Preliminary NO GROWTH AFTER 24 HOURS Resulted 01/08/19 16:00 Stool Clostridium difficile Toxin Assay - Final Complete 01/17/19 19:14 Indwelling Cath Urine Culture - Final Jeff Parapsilosis Complete 01/06/19 22:30 Abdominal Fluid Gram Stain - Final Complete 01/06/19 22:30 Body Fluid Culture - Final Jeff Albicans Complete Microbiology Date/Time Source Procedure Growth Status 01/21/19 04:40 Blood Blood Culture - Preliminary NO GROWTH AFTER 24 HOURS Resulted 01/21/19 04:30 Blood Blood Culture - Preliminary NO GROWTH AFTER 24 HOURS Resulted Laboratory Tests Test 01/23/19 04:35 White Blood Count 8.9 K/UL (4.8-10.8) Red Blood Count 3.08 M/UL (4.20-5.40) L Hemoglobin 9.0 G/DL (12.0-16.0) L Hematocrit 27.2 % (37.0-47.0) L Mean Corpuscular Volume 88 FL (80-99) Mean Corpuscular Hemoglobin 29.3 PG (27.0-31.0) Mean Corpuscular Hemoglobin Concent 33.1 G/DL (32.0-36.0) Red Cell Distribution Width 13.8 % (11.6-14.8) Platelet Count 480 K/UL (150-450) H Mean Platelet Volume 5.2 FL (6.5-10.1) L Neutrophils (%) (Auto) 76.9 % (45.0-75.0) H Lymphocytes (%) (Auto) 14.0 % (20.0-45.0) L Monocytes (%) (Auto) 4.4 % (1.0-10.0) Eosinophils (%) (Auto) 4.2 % (0.0-3.0) H Basophils (%) (Auto) 0.6 % (0.0-2.0) Sodium Level 137 MMOL/L (136-145) Potassium Level 3.6 MMOL/L (3.5-5.1) Chloride Level 106 MMOL/L (98-107) Carbon Dioxide Level 23 MMOL/L (21-32) Anion Gap 8 mmol/L (5-15) Blood Urea Nitrogen 8 mg/dL (7-18) Creatinine 1.2 MG/DL (0.55-1.30) Estimat Glomerular Filtration Rate 44.8 mL/min (>60) Glucose Level 187 MG/DL (74-106) H Calcium Level 8.9 MG/DL (8.5-10.1) Phosphorus Level 2.6 MG/DL (2.5-4.9) Magnesium Level 1.0 MG/DL (1.8-2.4) L Total Bilirubin 0.2 MG/DL (0.2-1.0) Aspartate Amino Transf (AST/SGOT) 21 U/L (15-37) Alanine Aminotransferase (ALT/SGPT) 24 U/L (12-78) Alkaline Phosphatase 249 U/L (46-116) H Total Protein 6.3 G/DL (6.4-8.2) L Albumin 2.0 G/DL (3.4-5.0) L Globulin 4.3 g/dL Albumin/Globulin Ratio 0.5 (1.0-2.7) L Current Medications Medications (Trade) Dose Ordered Sig/Kajal Route PRN Reason Start Time Stop Time Status Last Admin Dose Admin Acetaminophen (Tylenol) 650 mg Q4H PRN ORAL Mild Pain/Temp > 100.2 01/12/19 13:30 01/25/19 13:29 01/17/19 21:24 Acetaminophen (Tylenol) 650 mg Q6H PRN ORAL headache 01/14/19 09:00 02/13/19 08:59 Al Hydroxide/Mg Hydroxide (Mylanta) 30 ml Q6H PRN ORAL dyspepsia 01/12/19 14:00 01/27/19 13:59 01/16/19 02:35 Amlodipine Besylate (Norvasc) 5 mg BID ORAL 01/12/19 18:00 02/02/19 08:59 01/23/19 17:41 Chlorhexidine Gluconate (Yulia-Hex 2%) 1 applic DAILY@2000 TOPIC 01/22/19 20:00 02/21/19 19:59 01/22/19 20:37 Clonidine HCl (Catapres Tab) 0.1 mg Q6H PRN SL SBP>150 mmHg 01/21/19 08:45 01/30/19 08:44 Dextrose 1,000 ml @ 0 mls/hr Q24H PRN IV PN interrupted or unavailable 01/22/19 20:00 02/21/19 19:59 Dextrose (Dextrose 50%) 25 ml Q30M PRN IV Hypoglycemia 01/22/19 11:30 02/21/19 11:29 Dextrose (Dextrose 50%) 50 ml Q30M PRN IV Hypoglycemia 01/22/19 11:30 02/21/19 11:29 Dextrose/ Electrolytes 1,000 ml @ 76 mls/hr [id number] IV 01/22/19 20:00 02/21/19 19:59 01/23/19 09:22 Diphenhydramine HCl (Benadryl) 50 mg Q4H PRN ORAL Itching 01/12/19 14:00 01/26/19 13:59 Fat Emulsion Intravenous 216 ml/Amino Acids/ Electrolytes/ Dextrose 1,776 ml @ 74 mls/hr Q24H IV 01/22/19 20:00 02/21/19 19:59 01/22/19 20:41 Fentanyl (Duragesic) 1 patch Q72H TDERMAL 01/20/19 09:00 01/27/19 08:59 01/23/19 09:21 Fentanyl Citrate (Sublimaze 100 mcg/2 mL) 8 mcg Q2H PRN SUBQ Breakthrough pain 01/21/19 08:45 01/28/19 08:44 Fluconazole/ Sodium Chloride 200 ml @ 200 mls/hr Q24H IV 01/22/19 17:00 01/29/19 16:59 01/23/19 17:41 Heparin Sodium/ Sodium Chloride (Heparin 1000 units/500ml Premix) 1,000 unit ONCE PRN IV PICC PLACEMENT 01/22/19 11:30 02/21/19 11:29 Insulin Aspart (NovoLOG) Q6HR SUBQ 01/23/19 00:00 02/22/19 00:00 01/23/19 17:42 Levothyroxine Sodium (Synthroid) 125 mcg DAILY@0630 ORAL 01/24/19 06:30 02/23/19 06:29 Lidocaine HCl (Xylocaine Jelly 2%) 1 applic Q3H PRN TOPIC BURNING AROUND MEATUS 01/14/19 17:15 02/13/19 17:14 01/17/19 12:50 Lisinopril (Prinivil) 40 mg DAILY ORAL 01/13/19 09:00 01/30/19 08:59 01/23/19 09:18 Metoprolol Succinate (Toprol XL) 50 mg DAILY ORAL 01/23/19 09:00 02/02/19 08:59 01/23/19 09:18 Miscellaneous Medication (fentaNYL Destruction) 1 ea Q72H MISC 01/20/19 08:59 02/19/19 08:58 01/23/19 08:59 Mycophenolate Mofetil (Cellcept) 750 mg Q12HR ORAL 01/22/19 21:00 02/03/19 08:59 01/23/19 09:17 Naloxone HCl (Narcan) 0.1 mg PRN IV Sedation scale 3 or 4 01/12/19 13:30 02/03/19 13:44 Ondansetron HCl (Zofran) 4 mg Q6H PRN IVP Nausea & Vomiting 01/18/19 10:00 01/26/19 09:59 01/22/19 05:28 Pantoprazole (Protonix) 40 mg DAILY IVP 01/13/19 09:00 01/25/19 08:59 01/23/19 09:17 Phytonadione (Vitamin K) 10 mg ONCE A WEEK SUBQ 01/22/19 12:00 02/21/19 11:59 01/22/19 13:29 Prochlorperazine (Compazine) 10 mg Q6H PRN IVP Nausea & Vomiting 01/22/19 15:30 02/21/19 15:17 Tacrolimus (Prograf) 1 mg DAILY ORAL 01/13/19 09:00 02/04/19 08:59 01/23/19 09:17 Tacrolimus (Prograf) 2 mg BEDTIME ORAL 01/22/19 21:00 01/26/19 20:59 01/22/19 20:38 Trazodone HCl (Desyrel) 25 mg HSPRN PRN ORAL INSOMNIA 01/12/19 20:00 02/03/19 19:59 01/22/19 22:27 Philly Shelby MD Jan 23, 2019 19:22
--- NOTE | 2019-01-23 19:34 | NUR ---
HAND-OFF: Report given to PATRICK Baron. Pt is stable.
[2019-01-23 20:00] VITALS: BP 142/75
[2019-01-23] MEDS: Dyna-Hex 2% Top Sol 2oz TOPIC SCH (20:45)
[2019-01-23] MEDS ORDERED: Vancomycin 1.25gm/NS Premix IVPB ONE (21:00)
[2019-01-23] MEDS: Fat Emulsion Iv 20% 216 ML in Tpn 1,560 ML IV SCH (21:14)
[2019-01-23] MEDS: TraZODone HCl 25 mg tablet ORAL PRN (21:54)
--- NOTE | 2019-01-23 22:16 | NUR ---
NURSE NOTE: Pt is A/Ox4 with stable VS. Orders reviewed and physical assessment completed. Pt right lower forearm is reddened and edematous. Pt says a IV was recently removed from the site. Continuing warm compress to the affected site as ordered. No evidence of pressure injuries. Will continue to monitor.
[2019-01-24 00:01] VITALS: BP 147/64
[2019-01-24] MEDS: TraZODone HCl 25 mg tablet ORAL PRN ×2 (03:19→21:10)
[2019-01-24 04:01] VITALS: BP 142/74
[2019-01-24] MEDS: Levothyroxine 125mcg tab ORAL SCH (05:59)
[2019-01-24] MEDS: NovoLOG Insulin Flexpen SUBQ SCH ×4 (06:00→16:56)
[2019-01-24 06:41] LABS: INR 0.9 (0.9-1.1)
[2019-01-24 07:02] LABS: ALANINE AMINOTRANSFERASE 24 U/L (12-78); ALBUMIN 2.1 G/DL (3.4-5.0); ALBUMIN/GLOBULIN RATIO 0.5 (1.0-2.7); ALKALINE PHOSPHATASE 236 U/L (46-116); AMYLASE 65 U/L (25-115); ANION GAP 9 mmol/L (5-15); ASPARTATE AMINO TRANSFERASE 16 U/L (15-37); BILIRUBIN,TOTAL 0.3 MG/DL (0.2-1.0); BLOOD UREA NITROGEN 16 mg/dL (7-18); CARBON DIOXIDE 24 MMOL/L (21-32); CHLORIDE 104 MMOL/L (98-107); CREATININE 1.1 MG/DL (0.55-1.30); POTASSIUM 3.7 MMOL/L (3.5-5.1); SODIUM 137 MMOL/L (136-145)
[2019-01-24 07:03] LABS: BASOPHILS % (AUTO) 0.7 % (0.0-2.0); EOSINOPHILS % (AUTO) 5.7 % (0.0-3.0); HEMATOCRIT 24.3 % (37.0-47.0); HEMOGLOBIN 9.1 G/DL (12.0-16.0); LYMPHOCYTES % (AUTO) 18.8 % (20.0-45.0); MEAN CORPUSCULAR VOLUME 89 FL (80-99); MONOCYTES % (AUTO) 6.5 % (1.0-10.0); NEUTROPHILS % (AUTO) 68.3 % (45.0-75.0); PLATELET COUNT 426 K/UL (150-450); RED BLOOD COUNT 2.74 M/UL (4.20-5.40); WHITE BLOOD COUNT 8.7 K/UL (4.8-10.8)
--- NOTE | 2019-01-24 07:42 | NUR ---
HAND-OFF: Report given to
--- NOTE | 2019-01-24 07:45 | NUR ---
NURSE NOTES: Received report from Loraine NGUYEN, pt a/a/o x4 laying in bed with no signs of distress or other issues at this time. Pickett cath in place draining to gravity. [place] Ileostomy in place no leaking at this time. surgical incision open to air. PICC line in place running D5 NS+20mEq@76ml/hr, and TPN @74ml/hr. fentanyl patch placed at left chest. GT continues clamp. call light within reach, bed in lowest position, side rales up x2. I will f/u as needed.
[2019-01-24 08:00] VITALS: BP 153/81
--- NOTE | 2019-01-24 08:00 | NUR ---
NURSE NOTES: Pt had an episode of emesis after eating breakfast. pt vomit 275ml. I will f/u as needed.
[2019-01-24] MEDS: Metoprolol Succinate XL 50mg tab ORAL SCH (08:51)
[2019-01-24] MEDS: Mycophenolate 250mg cap ORAL SCH ×2 (08:51→20:28)
[2019-01-24] MEDS: Lisinopril 20mg tab ORAL SCH (08:52)
[2019-01-24] MEDS: Pantoprazole Inj IVP SCH (08:52)
--- NOTE | 2019-01-24 09:00 | NUR ---
NURSE NOTES: During medication time pt vomited all her medications (total emesis output of 350ml). Compazine IVP given as directed by . I will f/u as needed.
--- NOTE | 2019-01-24 09:15 | NUR ---
NURSE NOTES: RN called pharmacy to notify that patient vomited all her medications. per Pharmacist Kaila, she will re enter meds to give at 10:00. I will f/u as needed.
[2019-01-24] MEDS ORDERED: Mycophenolate 250mg cap ORAL SCH (10:00)
[2019-01-24] MEDS ORDERED: Metoprolol Succinate XL 50mg tab ORAL SCH (10:00)
[2019-01-24] MEDS ORDERED: Lisinopril 20mg tab ORAL SCH (10:00)
[2019-01-24 12:00] VITALS: BP 141/78
--- NOTE | 2019-01-24 13:00 | NUR ---
NURSE NOTES: after eating a few bites of mac and cheese complained of nausea and vomited 350ml of yellow emesis. Dr. Handy and Toney Cyr were notify. per Dr. Sanchez ok to continue to eating as tolerated. I will f/u as needed.
--- NOTE | 2019-01-24 13:30 | Surgery Progress Note ---
Surgery Progress Note Subjective Additional Comments Patient tolerating diet and intermittent Labs noted Exam stable Objective Last 24 Hour Vital Signs Date Time Temp Pulse Resp B/P (MAP) Pulse Ox O2 Delivery O2 Flow Rate FiO2 01/24/19 12:00 98.8 92 18 141/78 (99) 97 01/24/19 10:19 102 153/81 01/24/19 10:19 102 153/81 01/24/19 10:18 153/81 01/24/19 09:00 Room Air 01/24/19 08:52 153/81 01/24/19 08:52 102 153/81 01/24/19 08:51 102 153/81 01/24/19 08:00 98.5 102 18 153/81 (105) 97 01/24/19 04:01 98.2 92 18 142/74 (96) 96 01/24/19 00:01 99.1 85 17 147/64 (91) 96 01/23/19 21:00 Room Air 01/23/19 20:00 98.2 87 18 142/75 (97) 96 01/23/19 17:41 96 141/73 01/23/19 16:00 98.1 96 18 141/73 (95) 98 I&O Intake and Output 01/23/19 01/24/19 18:59 06:59 Intake Total 2524 ml 1410 ml Output Total 1750 ml 2625 ml Balance 774 ml -1215 ml Intake Oral 600 ml 360 ml IV Total 1924 ml 1050 ml Output Urine Total 1100 ml 2100 ml Other 650 ml 525 ml Dressing: dry Wound: clean Cardiovascular: RSR Respiratory: clear Abdomen: soft, flat, non-tender, present bowel sounds Extremities: no tenderness, no cyanosis Laboratory Tests Test 01/24/19 05:20 White Blood Count 8.7 K/UL (4.8-10.8) Red Blood Count 2.74 M/UL (4.20-5.40) L Hemoglobin 9.1 G/DL (12.0-16.0) L Hematocrit 24.3 % (37.0-47.0) L Mean Corpuscular Volume 89 FL (80-99) Mean Corpuscular Hemoglobin 33.2 PG (27.0-31.0) H Mean Corpuscular Hemoglobin Concent 37.5 G/DL (32.0-36.0) H Red Cell Distribution Width 15.0 % (11.6-14.8) H Platelet Count 426 K/UL (150-450) Mean Platelet Volume 5.3 FL (6.5-10.1) L Neutrophils (%) (Auto) 68.3 % (45.0-75.0) Lymphocytes (%) (Auto) 18.8 % (20.0-45.0) L Monocytes (%) (Auto) 6.5 % (1.0-10.0) Eosinophils (%) (Auto) 5.7 % (0.0-3.0) H Basophils (%) (Auto) 0.7 % (0.0-2.0) Erythrocyte Sedimentation Rate 100 MM/HR (0-30) H Prothrombin Time 10.0 SEC (9.30-11.50) Prothromb Time International Ratio 0.9 (0.9-1.1) Activated Partial Thromboplast Time 24 SEC (23-33) Sodium Level 137 MMOL/L (136-145) Potassium Level 3.7 MMOL/L (3.5-5.1) Chloride Level 104 MMOL/L (98-107) Carbon Dioxide Level 24 MMOL/L (21-32) Anion Gap 9 mmol/L (5-15) Blood Urea Nitrogen 16 mg/dL (7-18) Creatinine 1.1 MG/DL (0.55-1.30) Estimat Glomerular Filtration Rate 49.6 mL/min (>60) Glucose Level 142 MG/DL (74-106) H Calcium Level 9.0 MG/DL (8.5-10.1) Total Bilirubin 0.3 MG/DL (0.2-1.0) Aspartate Amino Transf (AST/SGOT) 16 U/L (15-37) Alanine Aminotransferase (ALT/SGPT) 24 U/L (12-78) Alkaline Phosphatase 236 U/L (46-116) H C-Reactive Protein, Quantitative 1.3 mg/dL (0.00-0.90) H Total Protein 6.5 G/DL (6.4-8.2) Albumin 2.1 G/DL (3.4-5.0) L Globulin 4.4 g/dL Albumin/Globulin Ratio 0.5 (1.0-2.7) L Amylase Level 65 U/L (25-115) Lipase 285 U/L (73-393) Plan Problems: (1) Malfunctioning Kock Pouch Assessment & Plan: Intermittent nausea and intermittent emesis with meals somewhat improved labs noted exam as above -regular diet -g tube capped -DC Pickett -replace electrolytes ordered will follow with recs thank you Kvng Sanchez Jan 24, 2019 13:30
--- NOTE | 2019-01-24 13:42 | Cardiology Progress Note ---
Assessment/Plan Status Narrative 1. Malfunctioning Kock pouch continent ileostomy. 2. History of ulcerative colitis. 3. History of primary sclerosing cholangitis. 4. Status post multiple abdominal operations. 4.1. Appendectomy in 1964. 4.2. Proctocolectomy and Kock pouch in 1978. 4.3. Total abdominal hysterectomy and bilateral salpingo-oophorectomy 1983 4.4. Cholecystectomy in 1985. 4.5. Orthotopic liver transplantation in 1999. 4.6. Revision of Kock pouch and repair of fistula in 2010. HTN- New onset- Controlled on Norvasc /Lisinopril and Metoprolol Tachycardia- improved with IV Fluids and Beta Blockers. Renal insuff- Most probably due volume depletion ( High GT output), - Creat 1.3 Volume depletion- high GT output- I/Os negative CT Scan done 01/18- small fluid collections, no obstruction Esophagitis Duodenal narrowing Vomiting ? due to slow transition, gastroparesis, duodenal narrowing Assessment/Plan Metoprolol 25 mg QD Zestril 40 mg QD. Norvasc 5 mg BID Monitor BP TPN and Peripheral IV as per Dr. Sotomayor Diet as per DR. Sotomayor Repeat labs in AM. Encouraged increased ambulation ROYA morales. Discussed with RN. Subjective Cardiovascular: Reports: no symptoms; Denies: chest pain Respiratory: Denies: no symptoms, shortness of breath Gastrointestinal/Abdominal: Reports: vomiting - after breakfast and lunch Genitourinary: Reports: no symptoms Subjective Still NPO vomiting x1 today Having out put from ileostomy Has been out of bed, ambulated. Pain controlled Creat 1.3 High output from GT- now being plugged Q2h S/P EGD today- showed gastriris/esophagitis with mid duodenal narrowing 01/21/19- had Gatrografin UGI study, increased ileostomy output. No vomiting today. 01/22/10- has tolerated clear liquids, had vomiting x1 this morning. 01/23- Started on solid food 01/24- Vomited after breakfast, and lunch- TPN @74 cc/h, IV @ 70 cc/h Objective Last 24 Hour Vital Signs Date Time Temp Pulse Resp B/P (MAP) Pulse Ox O2 Delivery O2 Flow Rate FiO2 01/24/19 12:00 98.8 92 18 141/78 (99) 97 01/24/19 10:19 102 153/81 10/5/19 10:19 102 153/81 01/24/19 10:18 153/81 01/24/19 09:00 Room Air 01/24/19 08:52 153/81 01/24/19 08:52 102 153/81 01/24/19 08:51 102 153/81 01/24/19 08:00 98.5 102 18 153/81 (105) 97 01/24/19 04:01 98.2 92 18 142/74 (96) 96 01/24/19 00:01 99.1 85 17 147/64 (91) 96 01/23/19 21:00 Room Air 01/23/19 20:00 98.2 87 18 142/75 (97) 96 01/23/19 17:41 96 141/73 01/23/19 16:00 98.1 96 18 141/73 (95) 98 General Appearance: no apparent distress, alert Cardiovascular: normal rate, regular rhythm, no gallop/murmur Respiratory/Chest: lungs clear Abdomen: normal bowel sounds, non tender, soft Extremities: normal range of motion, non-tender, no calf tenderness, no swelling Intake and Output 01/23/19 01/24/19 18:59 06:59 Intake Total 2524 ml 1410 ml Output Total 1750 ml 2625 ml Balance 774 ml -1215 ml Intake Oral 600 ml 360 ml IV Total 1924 ml 1050 ml Output Urine Total 1100 ml 2100 ml Other 650 ml 525 ml Laboratory Tests Test 01/24/19 05:20 White Blood Count 8.7 K/UL (4.8-10.8) Red Blood Count 2.74 M/UL (4.20-5.40) L Hemoglobin 9.1 G/DL (12.0-16.0) L Hematocrit 24.3 % (37.0-47.0) L Mean Corpuscular Volume 89 FL (80-99) Mean Corpuscular Hemoglobin 33.2 PG (27.0-31.0) H Mean Corpuscular Hemoglobin Concent 37.5 G/DL (32.0-36.0) H Red Cell Distribution Width 15.0 % (11.6-14.8) H Platelet Count 426 K/UL (150-450) Mean Platelet Volume 5.3 FL (6.5-10.1) L Neutrophils (%) (Auto) 68.3 % (45.0-75.0) Lymphocytes (%) (Auto) 18.8 % (20.0-45.0) L Monocytes (%) (Auto) 6.5 % (1.0-10.0) Eosinophils (%) (Auto) 5.7 % (0.0-3.0) H Basophils (%) (Auto) 0.7 % (0.0-2.0) Erythrocyte Sedimentation Rate 100 MM/HR (0-30) H Prothrombin Time 10.0 SEC (9.30-11.50) Prothromb Time International Ratio 0.9 (0.9-1.1) Activated Partial Thromboplast Time 24 SEC (23-33) Sodium Level 137 MMOL/L (136-145) Potassium Level 3.7 MMOL/L (3.5-5.1) Chloride Level 104 MMOL/L (98-107) Carbon Dioxide Level 24 MMOL/L (21-32) Anion Gap 9 mmol/L (5-15) Blood Urea Nitrogen 16 mg/dL (7-18) Creatinine 1.1 MG/DL (0.55-1.30) Estimat Glomerular Filtration Rate 49.6 mL/min (>60) Glucose Level 142 MG/DL (74-106) H Calcium Level 9.0 MG/DL (8.5-10.1) Total Bilirubin 0.3 MG/DL (0.2-1.0) Aspartate Amino Transf (AST/SGOT) 16 U/L (15-37) Alanine Aminotransferase (ALT/SGPT) 24 U/L (12-78) Alkaline Phosphatase 236 U/L (46-116) H C-Reactive Protein, Quantitative 1.3 mg/dL (0.00-0.90) H Total Protein 6.5 G/DL (6.4-8.2) Albumin 2.1 G/DL (3.4-5.0) L Globulin 4.4 g/dL Albumin/Globulin Ratio 0.5 (1.0-2.7) L Amylase Level 65 U/L (25-115) Lipase 285 U/L (73-393) Micha Ziegler MD Jan 24, 2019 13:42
--- NOTE | 2019-01-24 14:00 | NUR ---
NURSE NOTES: Pickett cath removed. RN will f/u for post void.
--- NOTE | 2019-01-24 15:41 | General Progress Note ---
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, on Prograf and Cellcept - malnutrition, depressed Albumin, on TPN - N/V - anemia - hypothyroid on replacement Recommendations - Follow labs and replace lytes PRN - Abx per ID - monitor Prograf level, watch for Diflucan drug interaction - Continue TPN - Elevate HOB - Wound care - check Fe panel Subjective Allergies: Coded Allergies: CODEINE (Verified Allergy, Severe, 12/17/18) Face contractions HYDROMORPHONE (Verified Allergy, Severe, Itching, 12/17/18) Itching whole body METOCLOPRAMIDE (Verified Allergy, Severe, 12/17/18) Face contractions MORPHINE (Verified Allergy, Severe, Shortness of Breath, 12/17/18) SULFA (SULFONAMIDE ANTIBIOTICS) (Verified Allergy, Severe, 12/17/18) Face contractions Subjective vomited x 2 earlier today on TPN Recently started on fluconazole Objective Last 24 Hour Vital Signs Date Time Temp Pulse Resp B/P (MAP) Pulse Ox O2 Delivery O2 Flow Rate FiO2 01/24/19 12:00 98.8 92 18 141/78 (99) 97 01/24/19 10:19 102 153/81 01/24/19 10:19 102 153/81 01/24/19 10:18 153/81 01/24/19 09:00 Room Air 01/24/19 08:52 153/81 01/24/19 08:52 102 153/81 01/24/19 08:51 102 153/81 01/24/19 08:00 98.5 102 18 153/81 (105) 97 01/24/19 04:01 98.2 92 18 142/74 (96) 96 01/24/19 00:01 99.1 85 17 147/64 (91) 96 01/23/19 21:00 Room Air 01/23/19 20:00 98.2 87 18 142/75 (97) 96 01/23/19 17:41 96 141/73 01/23/19 16:00 98.1 96 18 141/73 (95) 98 Intake and Output 01/23/19 01/24/19 18:59 06:59 Intake Total 2524 ml 1410 ml Output Total 1750 ml 2625 ml Balance 774 ml -1215 ml Intake Oral 600 ml 360 ml IV Total 1924 ml 1050 ml Output Urine Total 1100 ml 2100 ml Other 650 ml 525 ml Laboratory Tests 01/24/19 05:20: White Blood Count 8.7, Red Blood Count 2.74L, Hemoglobin 9.1L, Hematocrit 24.3L , Mean Corpuscular Volume 89, Mean Corpuscular Hemoglobin 33.2H, Mean Corpuscular Hemoglobin Concent 37.5H, Red Cell Distribution Width 15.0H, Platelet Count 426, Mean Platelet Volume 5.3L, Neutrophils (%) (Auto) 68.3, Lymphocytes (%) (Auto) 18.8L, Monocytes (%) (Auto) 6.5, Eosinophils (%) (Auto) 5.7H, Basophils (%) (Auto) 0.7, Erythrocyte Sedimentation Rate 100H, Prothrombin Time 10.0, Prothromb Time International Ratio 0.9, Activated Partial Thromboplast Time 24, Sodium Level 137, Potassium Level 3.7, Chloride Level 104, Carbon Dioxide Level 24, Anion Gap 9, Blood Urea Nitrogen 16, Creatinine 1.1, Estimat Glomerular Filtration Rate 49.6, Glucose Level 142H, Calcium Level 9.0, Total Bilirubin 0.3, Aspartate Amino Transf (AST/SGOT) 16, Alanine Aminotransferase (ALT/SGPT) 24, Alkaline Phosphatase 236H, C-Reactive Protein, Quantitative 1.3H, Total Protein 6.5, Albumin 2.1L, Globulin 4.4, Albumin/Globulin Ratio 0.5L, Amylase Level 65, Lipase 285 Height (Feet): 5 Height (Inches): 3.00 Weight (Pounds): 134 Objective Thin WW NCAT supple CTA RR abd flat, (R) sided ostomy with dark stool, (+) LUQ GT, midline wound no edema Simba Cardona MD Jan 24, 2019 15:41
[2019-01-24 16:00] VITALS: BP 141/78
--- NOTE | 2019-01-24 16:22 | NUR ---
CASE MANAGEMENT:REVIEW 01/24/19 SI: POD #37...S/P RESECTION OF FAILED PARSONS POUCH POD#20...EXPL LAP W/SMALL BOWEL RESECTION AND RELOCATION OF ILEOSTOMY POD #17...S/P REPAIR OF STAPLE LINE DEHISCENCE POD #15..S/P REMOVE WOUND VAC. REPAIR BOWEL LEAK. T 98.8 HR 92 RR 18 B/P 141/78 SATS 97% ON RA LABS GLU 142 ALP 236 IS: IV MAG SULFATE X2 IVF@76/HR FENTANYL PATCH Q72 IV DIFLUCAN Q24 CELLCEPT PO Q12 PROGRAF PO QHS LIDOCAINE PATCH NORVASC PO BID IV SYNTHROID QD LISINOPRIL PO QD TOPROL XL NG QD : MED/SURG STATUS 3 [facility]
--- NOTE | 2019-01-24 17:00 | NUR ---
NURSE NOTES: Pt was able to void after Pickett cath was removed with no difficulty or any signs of distress. I will f/u as needed.
--- NOTE | 2019-01-24 19:33 | NUR ---
HAND-OFF: Report given to Dallin Mohr pt in stable condition. pt had another episode of emesis (out put: 550ml yellow emesis) Total I&O's Ileostomy: 375ml Emesis: 925ml urine: 800ml
[2019-01-24] MEDS: Dyna-Hex 2% Top Sol 2oz TOPIC SCH (19:45)
[2019-01-24 20:00] VITALS: BP 133/71
[2019-01-24] MEDS: Fat Emulsion Iv 20% 216 ML in Tpn 1,560 ML IV SCH (20:28)
[2019-01-24] MEDS: Vancomycin 750mg/NS 275ml IVPB SCH ×2 (20:30)
[2019-01-24] MEDS ORDERED: NS Irrig 1000ml ONE (22:49)
[2019-01-24] MEDS ORDERED: Tubing IV Secondary IV ONE (22:49)
[2019-01-25] MEDS: NovoLOG Insulin Flexpen SUBQ SCH ×5 (00:24→23:27)
[2019-01-25] MEDS: TraZODone HCl 25 mg tablet ORAL PRN ×2 (01:35→23:14)
--- NOTE | 2019-01-25 03:11 | NUR ---
NURSES NOTE: Met patient in room, lying in bed, A/OX4, able to let needs be known, no s/s of distress noted, unlabored breathing pattern. Pickett has been discontinued and pt is using a bed side commode for voiding. Ilio draining bag present, pt empties it independently. Gtube is closed with no suctioning or flushes. Patients vital signs stable at 2000. Refuses vs for the rest of NOC shift. Pt vomited 250 cc at apprx 2100. Compazine 10mg given, effective. All due meds given. Pt will continue to be monitored.
[2019-01-25] MEDS: Levothyroxine 125mcg tab ORAL SCH (06:05)
[2019-01-25 06:32] LABS: BASOPHILS % (AUTO) 0.6 % (0.0-2.0); EOSINOPHILS % (AUTO) 5.5 % (0.0-3.0); HEMATOCRIT 24.2 % (37.0-47.0); HEMOGLOBIN 8.5 G/DL (12.0-16.0); LYMPHOCYTES % (AUTO) 19.7 % (20.0-45.0); MEAN CORPUSCULAR VOLUME 89 FL (80-99); MONOCYTES % (AUTO) 6.2 % (1.0-10.0); NEUTROPHILS % (AUTO) 68.1 % (45.0-75.0); PLATELET COUNT 353 K/UL (150-450); RED BLOOD COUNT 2.72 M/UL (4.20-5.40); RED CELL DISTRIBUTION WIDTH 14.7 % (11.6-14.8); WHITE BLOOD COUNT 8.1 K/UL (4.8-10.8)
[2019-01-25 06:46] LABS: % IRON SATURATION 13 % (15-50); IRON 25 ug/dL (50-175); TOTAL IRON BINDING CAPACITY 199 ug/dL (250-450)
[2019-01-25 07:00] LABS: ALANINE AMINOTRANSFERASE 25 U/L (12-78); ALBUMIN/GLOBULIN RATIO 0.5 (1.0-2.7); ALKALINE PHOSPHATASE 221 U/L (46-116); ANION GAP 8 mmol/L (5-15); ASPARTATE AMINO TRANSFERASE 17 U/L (15-37); BILIRUBIN,TOTAL 0.2 MG/DL (0.2-1.0); BLOOD UREA NITROGEN 19 mg/dL (7-18); CALCIUM 8.9 MG/DL (8.5-10.1); CARBON DIOXIDE 24 MMOL/L (21-32); CHLORIDE 106 MMOL/L (98-107); POTASSIUM 4.1 MMOL/L (3.5-5.1); SODIUM 137 MMOL/L (136-145)
--- NOTE | 2019-01-25 07:29 | NUR ---
NURSE NOTES: Received report from Dallin Mohr pt sleeping comfortable with no signs of distress. per report pt had another episode of emises (total out put 250ml). Kock pouch in place, total out put: 525ml. total urine: 675ml. surgical incision open to air. call light within reach. bed in lowest position. side rales up x2. I will f/u as needed.
[2019-01-25 07:36] LABS: PHOSPHORUS 2.6 MG/DL (2.5-4.9)
--- NOTE | 2019-01-25 07:51 | NUR ---
HAND-OFF: Report given to Star.Patient in stable condition.
[2019-01-25 08:00] VITALS: BP 153/78
--- NOTE | 2019-01-25 09:00 | NUR ---
NURSE NOTES: During medication administration pt had another episode of vomiting, pt vomited all her mediations, total out put:200ml. RN will administrate compazine as directed by . RN called pharmacy to notify that pt vomited her meds that we need to replace them. [facility] pharmacist will put a one time order to readministered her morning meds.
--- NOTE | 2019-01-25 09:21 | NUR ---
CASE MANAGEMENT:REVIEW 01/25/19 SI: POD #38...S/P RESECTION OF FAILED PARSONS POUCH POD#21...EXPL LAP W/SMALL BOWEL RESECTION AND RELOCATION OF ILEOSTOMY POD #18...S/P REPAIR OF STAPLE LINE DEHISCENCE POD #16..S/P REMOVE WOUND VAC. REPAIR BOWEL LEAK. T 98.4 HR 95 RR 18 B/P 153/78 SATS 97% ON RA BUN 19 GLU 115 MG 1.1 ALP 221 IS: IV MAG SULFATE X2 IVF@76/HR FENTANYL PATCH Q72 IV DIFLUCAN Q24 CELLCEPT PO Q12 PROGRAF PO QHS LIDOCAINE PATCH NORVASC PO BID IV SYNTHROID QD LISINOPRIL PO QD TOPROL XL NG QD : MED/SURG STATUS 3 [facility]
[2019-01-25] MEDS: Mycophenolate 250mg cap ORAL SCH ×2 (09:51→20:35)
[2019-01-25] MEDS: Metoprolol Succinate XL 50mg tab ORAL SCH (09:53)
[2019-01-25] MEDS: Lisinopril 20mg tab ORAL SCH (09:54)
[2019-01-25] MEDS ORDERED: Metoprolol Succinate XL 50mg tab ORAL SCH (11:30)
[2019-01-25] MEDS ORDERED: Mycophenolate 250mg cap ORAL SCH (11:45)
--- NOTE | 2019-01-25 11:52 | General Progress Note ---
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, on Prograf and Cellcept - malnutrition, depressed Albumin, on TPN - N/V - anemia - hypothyroid on replacement Recommendations - Follow labs and replace lytes PRN - Abx per ID - monitor Prograf level, watch for Diflucan drug interaction - Continue TPN - Elevate HOB - Wound care - check Fe pane ---> consider IV Fe - Mg replaced. May need to increase in TPN -Selenium added to TPN yesterday Subjective Allergies: Coded Allergies: CODEINE (Verified Allergy, Severe, 12/17/18) Face contractions HYDROMORPHONE (Verified Allergy, Severe, Itching, 12/17/18) Itching whole body METOCLOPRAMIDE (Verified Allergy, Severe, 12/17/18) Face contractions MORPHINE (Verified Allergy, Severe, Shortness of Breath, 12/17/18) SULFA (SULFONAMIDE ANTIBIOTICS) (Verified Allergy, Severe, 12/17/18) Face contractions Subjective vomited earlier today on TPN d/w ID and pharmacy yesterday re fluconazole [place] level pending Objective Last 24 Hour Vital Signs Date Time Temp Pulse Resp B/P (MAP) Pulse Ox O2 Delivery O2 Flow Rate FiO2 01/25/19 11:45 96 128/76 01/25/19 11:44 96 128/76 01/25/19 09:54 153/78 01/25/19 09:53 95 153/78 01/25/19 09:53 95 153/78 01/25/19 09:00 Room Air 01/25/19 08:00 98.4 95 18 153/78 (103) 97 01/24/19 21:00 Room Air 01/24/19 20:00 99.1 87 18 133/71 (91) 97 01/24/19 20:00 98 Room Air 21 01/24/19 16:59 92 141/78 01/24/19 16:00 98.8 92 18 141/78 (99) 97 01/24/19 12:00 98.8 92 18 141/78 (99) 97 Intake and Output 01/24/19 01/25/19 19:00 07:00 Intake Total 2324 ml 2253 ml Output Total 2100 ml 2150 ml Balance 224 ml 103 ml Intake Oral 450 ml 480 ml IV Total 1874 ml 1773 ml Output Urine Total 800 ml 775 ml Emesis 925 ml 800 ml Other 375 ml 575 ml Laboratory Tests 01/25/19 05:50: White Blood Count 8.1, Red Blood Count 2.72L, Hemoglobin 8.5L, Hematocrit 24.2L , Mean Corpuscular Volume 89, Mean Corpuscular Hemoglobin 31.4H, Mean Corpuscular Hemoglobin Concent 35.3, Red Cell Distribution Width 14.7, Platelet Count 353, Mean Platelet Volume 5.6L, Neutrophils (%) (Auto) 68.1, Lymphocytes ( %) (Auto) 19.7L, Monocytes (%) (Auto) 6.2, Eosinophils (%) (Auto) 5.5H, Basophils (%) (Auto) 0.6, Sodium Level 137, Potassium Level 4.1, Chloride Level 106, Carbon Dioxide Level 24, Anion Gap 8, Blood Urea Nitrogen 19H, Creatinine 1.0, Estimat Glomerular Filtration Rate 55.3, Glucose Level 115H, Calcium Level 8.9, Phosphorus Level 2.6, Magnesium Level 1.1L, Iron Level 25L, Total Iron Binding Capacity 199L, Percent Iron Saturation 13L, Unsaturated Iron Binding 174 , Ferritin 347, Total Bilirubin 0.2, Aspartate Amino Transf (AST/SGOT) 17, Alanine Aminotransferase (ALT/SGPT) 25, Alkaline Phosphatase 221H, Total Protein 6.2L, Albumin 2.0L, Globulin 4.2, Albumin/Globulin Ratio 0.5L, Thyroid Stimulating Hormone (TSH) 2.023, Tacrolimus (Prograf) Level [Pending] Height (Feet): 5 Height (Inches): 3.00 Weight (Pounds): 134 Objective Thin WW NCAT supple CTA RR abd flat, (R) sided ostomy with dark stool, (+) LUQ GT, midline wound no edema Simba Cardona MD Jan 25, 2019 11:52
[2019-01-25 12:00] VITALS: BP 128/76
--- NOTE | 2019-01-25 14:00 | NUR ---
NURSE NOTES: During rounding pt had another episode of emesis after eating. total out put: 250ml. RN will notify Dr. Sanchez. I will f/u as needed.
--- NOTE | 2019-01-25 15:00 | NUR ---
NURSE NOTES: During rounding pt complained of Kock pouch leaking. RN will changed per protocol. I will f/u as needed.
--- NOTE | 2019-01-25 15:53 | Infectious Diseases Prog Note ---
Assessment/Plan Assessment/Plan ASSESSMENT AND PLAN: 1. hx of leukocytosis, fevers, ? 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 infiltrated iv, ? cellulitis right arm, n/v persists - fluconazole based on jeff species - day # 5 abx - dose adjusted pending prograf levels, d/w pharmacy about dosing and recommendations - vancomycin - day # 3, for possible right arm cellulitis, warm compresses, d/w RN - clinically improved - f/u on surveillance blood cultures - neg to date - d/w GI, RN and patient - monitor labs, leukocytosis and fevers resolved - on 2D echo - no vegetations mentioned per report 2. 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 3. Liver transplantation. 4. Sclerosing cholangitis. 5. Ulcerative colitis. 6. The patient is anemic. 7. History of cholecystectomy, appendectomy, hysterectomy, and proctocolectomy. 8. History of multiple abdominal operations. 9. Allergies to codeine, hydromorphone, metoclopramide, morphine, and sulfa. 10. Family doctor is Noncontributory. 11. Social history is negative. 12. MAR was noted. 13. Case discussed with RN. 14. Case discussed with the patient. 15. Continue treatment per Dr. Sotomayor and consultants. Subjective Constitutional: Denies: fever HEENT: Denies: congestion Respiratory: Denies: shortness of breath Cardiovascular: Denies: chest pain Gastrointestinal/Abdominal: Denies: nausea, vomiting Genitourinary: Denies: other Neurologic: Denies: headache Psychiatric: Denies: depression Skin: Denies: rash Hematologic: Denies: bleeding Musculoskeletal: Denies: pain Allergies: Coded Allergies: CODEINE (Verified Allergy, Severe, 12/17/18) Face contractions HYDROMORPHONE (Verified Allergy, Severe, Itching, 12/17/18) Itching whole body METOCLOPRAMIDE (Verified Allergy, Severe, 12/17/18) Face contractions MORPHINE (Verified Allergy, Severe, Shortness of Breath, 12/17/18) SULFA (SULFONAMIDE ANTIBIOTICS) (Verified Allergy, Severe, 12/17/18) Face contractions Objective Vital Signs Last 24 Hour Vital Signs Date Time Temp Pulse Resp B/P (MAP) Pulse Ox O2 Delivery O2 Flow Rate FiO2 01/25/19 12:00 99.2 96 18 128/76 (93) 96 01/25/19 11:45 96 128/76 01/25/19 11:44 96 128/76 01/25/19 09:54 153/78 01/25/19 09:53 95 153/78 01/25/19 09:53 95 153/78 01/25/19 09:00 Room Air 01/25/19 08:00 98.4 95 18 153/78 (103) 97 01/24/19 21:00 Room Air 01/24/19 20:00 99.1 87 18 133/71 (91) 97 01/24/19 20:00 98 Room Air 21 01/24/19 16:59 92 141/78 01/24/19 16:00 98.8 92 18 141/78 (99) 97 Height (Feet): 5 Height (Inches): 3.00 Weight (Pounds): 134 General Appearance: no acute distress HEENT: normocephalic, atraumatic, anicteric, mucous membranes moist Respiratory/Chest: lungs clear, normal breath sounds, no respiratory distress, no accessory muscle use Cardiovascular: normal rate, regular rhythm, no gallop/murmur, no JVD Abdomen: normal bowel sounds, soft, non tender, no organomegaly, non distended Genitourinary: other - no morales Extremities: no cyanosis Skin: no rash Neurologic/Psychiatric: lead teacher II-XII grossly normal, 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 Evidence of total colectomy. Right lower abdominal wall ostomy is new since prior study. Previously seen left lower quadrant ostomy has been taken down. 2. Prominent proximal duodenum narrowing between the SMA and aorta. Query SMA syndrome. 3. Left lower abdominal wall percutaneous drainage catheter with tip in the right anterior lower abdomen. There is 3.6 x 6 cm fluid collection in the anterior lower pelvis and another loculated 2.8 x 3 cm collection to the right, likely connecting. There are surgical clips associated with the fluid collections and this may be unopacified patulous small bowel, limited as the oral contrast has not reached the distal small bowel loops. Consider delayed imaging. 4. Smaller loculated fluid with small air bubbles in the pelvis, likely due to recent postop changes, cannot exclude fistula or leak. 5. Anterior abdominal wall vertical incision with small fluid along the incision in the subcutaneous soft tissue. 6. Percutaneous gastrostomy tube. 7. Tiny bilateral nonobstructive renal stones. No ureteral stone or renal obstruction. CT abdomen and pelvis - 12/26/18 - Status post recent abdominal surgery with creation of a left lower quadrant Yajaira ileostomy. Good bowel and bag opacification with no evidence of bowel obstruction. Unusual, markedly distended unopacified loop of bowel in the pelvis. Although unopacified, this does not appear to be an abscess as there is a wall and other characteristics more in keeping with bowel. Would consider a large diverticulum or possibly remnant of the previous Kock pouch or part of the small bowel leading to the old pouch as those segments are sometimes quite distended. Status post liver transplant. Status post cholecystectomy. Mild basal atelectasis. Chest x-ray - no pna, report noted CT abdomen/pelvis - 12/30/18 - Impression: Postsurgical changes, as described Unusual tubular structure filled mostly with gas but also some fluid communicating with the small bowel at the site of a right lower quadrant enteroenterostomy. Uncertain as to whether this represents an unusual large diverticulum, a true extraluminal gas collection, or a portion of an old continent ileostomy pouch. This is also previously described Dilated proximal small bowel proximal to the enteroenterostomy with slow forward propulsion of contents. Partial small bowel obstruction not completely excludable although unlikely given evidence of forward propulsion of contrast and filling of the ileostomy on prior 12/26/2018 exam; findings most likely functional in nature. Correlate with clinical findings Small anterior pelvic and deep pelvic fluid pockets, most likely represent retained postoperative fluid collections. Abscess as etiology of any of these not completely excludable; correlation with clinical findings recommended Postsurgical changes of the liver status post transplantation Punctate nonobstructing bilateral intrarenal calculi Bilateral basilar pulmonary parenchymal atelectasis and/or scarring Chest x-ray - 01/07/19 - Images previously reviewed in person with Dr. Sotomayor Interval placement of a right transjugular central line, catheter tip in the region of the high right atrium. Left arm PICC line remains in place with the catheter tip at the cavoatrial junction. No evidence of pneumothorax. No definite focal airspace consolidation or pleural effusion. Surgical clips noted projecting over the upper abdomen. Microbiology Date/Time Source Procedure Growth Status 01/21/19 04:40 Blood Blood Culture - Preliminary NO GROWTH AFTER 4 DAYS Resulted 01/08/19 16:00 Stool Clostridium difficile Toxin Assay - Final Complete 01/17/19 19:14 Indwelling Cath Urine Culture - Final Jeff Parapsilosis Complete 01/06/19 22:30 Abdominal Fluid Gram Stain - Final Complete 01/06/19 22:30 Body Fluid Culture - Final Jeff Albicans Complete Laboratory Tests Test 01/25/19 05:50 White Blood Count 8.1 K/UL (4.8-10.8) Red Blood Count 2.72 M/UL (4.20-5.40) L Hemoglobin 8.5 G/DL (12.0-16.0) L Hematocrit 24.2 % (37.0-47.0) L Mean Corpuscular Volume 89 FL (80-99) Mean Corpuscular Hemoglobin 31.4 PG (27.0-31.0) H Mean Corpuscular Hemoglobin Concent 35.3 G/DL (32.0-36.0) Red Cell Distribution Width 14.7 % (11.6-14.8) Platelet Count 353 K/UL (150-450) Mean Platelet Volume 5.6 FL (6.5-10.1) L Neutrophils (%) (Auto) 68.1 % (45.0-75.0) Lymphocytes (%) (Auto) 19.7 % (20.0-45.0) L Monocytes (%) (Auto) 6.2 % (1.0-10.0) Eosinophils (%) (Auto) 5.5 % (0.0-3.0) H Basophils (%) (Auto) 0.6 % (0.0-2.0) Sodium Level 137 MMOL/L (136-145) Potassium Level 4.1 MMOL/L (3.5-5.1) Chloride Level 106 MMOL/L (98-107) Carbon Dioxide Level 24 MMOL/L (21-32) Anion Gap 8 mmol/L (5-15) Blood Urea Nitrogen 19 mg/dL (7-18) H Creatinine 1.0 MG/DL (0.55-1.30) Estimat Glomerular Filtration Rate 55.3 mL/min (>60) Glucose Level 115 MG/DL (74-106) H Calcium Level 8.9 MG/DL (8.5-10.1) Phosphorus Level 2.6 MG/DL (2.5-4.9) Magnesium Level 1.1 MG/DL (1.8-2.4) L Iron Level 25 ug/dL (50-175) L Total Iron Binding Capacity 199 ug/dL (250-450) L Percent Iron Saturation 13 % (15-50) L Unsaturated Iron Binding 174 ug/dL (112-346) Ferritin 347 NG/ML (8-388) Total Bilirubin 0.2 MG/DL (0.2-1.0) Aspartate Amino Transf (AST/SGOT) 17 U/L (15-37) Alanine Aminotransferase (ALT/SGPT) 25 U/L (12-78) Alkaline Phosphatase 221 U/L (46-116) H Total Protein 6.2 G/DL (6.4-8.2) L Albumin 2.0 G/DL (3.4-5.0) L Globulin 4.2 g/dL Albumin/Globulin Ratio 0.5 (1.0-2.7) L Thyroid Stimulating Hormone (TSH) 2.023 uiU/mL (0.358-3.740) Tacrolimus (Prograf) Level Pending Current Medications Medications (Trade) Dose Ordered Sig/Kajal Route PRN Reason Start Time Stop Time Status Last Admin Dose Admin Acetaminophen (Tylenol) 650 mg Q6H PRN ORAL headache 01/14/19 09:00 02/13/19 08:59 Al Hydroxide/Mg Hydroxide (Mylanta) 30 ml Q6H PRN ORAL dyspepsia 01/12/19 14:00 01/27/19 13:59 01/16/19 02:35 Amlodipine Besylate (Norvasc) 5 mg BID ORAL 01/12/19 18:00 02/02/19 08:59 01/25/19 09:53 Chlorhexidine Gluconate (Yulia-Hex 2%) 1 applic DAILY@1999 TOPIC 01/22/19 20:00 02/21/19 19:59 01/24/19 19:45 Clonidine HCl (Catapres Tab) 0.1 mg Q6H PRN SL SBP>150 mmHg 01/21/19 08:45 01/30/19 08:44 Dextrose 1,000 ml @ 0 mls/hr Q24H PRN IV PN interrupted or unavailable 01/22/19 20:00 02/21/19 19:59 Dextrose (Dextrose 50%) 25 ml Q30M PRN IV Hypoglycemia 01/22/19 11:30 02/21/19 11:29 Dextrose (Dextrose 50%) 50 ml Q30M PRN IV Hypoglycemia 01/22/19 11:30 02/21/19 11:29 Dextrose/ Electrolytes 1,000 ml @ 76 mls/hr [id number] IV 01/22/19 20:00 02/21/19 19:59 01/25/19 13:01 Diphenhydramine HCl (Benadryl) 50 mg Q4H PRN ORAL Itching 01/12/19 14:00 01/26/19 13:59 Fat Emulsion Intravenous 216 ml/Amino Acids/ Electrolytes/ Dextrose 1,776 ml @ 74 mls/hr Q24H IV 01/22/19 20:00 02/21/19 19:59 01/24/19 20:28 Fentanyl (Duragesic) 1 patch Q72H TDERMAL 01/20/19 09:00 01/27/19 08:59 01/23/19 09:21 Fentanyl Citrate (Sublimaze 100 mcg/2 mL) 8 mcg Q2H PRN SUBQ Breakthrough pain 01/21/19 08:45 01/28/19 08:44 Fluconazole/ Sodium Chloride 100 ml @ 100 mls/hr Q24H IV 01/24/19 17:00 01/31/19 16:59 01/24/19 17:17 Heparin Sodium/ Sodium Chloride (Heparin 1000 units/500ml Premix) 1,000 unit ONCE PRN IV PICC PLACEMENT 01/22/19 11:30 02/21/19 11:29 Insulin Aspart (NovoLOG) Q6HR SUBQ 01/23/19 00:00 02/22/19 00:00 01/25/19 11:46 Levothyroxine Sodium (Synthroid) 125 mcg DAILY@0630 ORAL 01/24/19 06:30 02/23/19 06:29 01/25/19 06:05 Lidocaine HCl (Xylocaine Jelly 2%) 1 applic Q3H PRN TOPIC BURNING AROUND MEATUS 01/14/19 17:15 02/13/19 17:14 01/17/19 12:50 Lisinopril (Prinivil) 40 mg DAILY ORAL 01/13/19 09:00 01/30/19 08:59 01/25/19 09:54 Metoprolol Succinate (Toprol XL) 50 mg DAILY ORAL 01/23/19 09:00 02/02/19 08:59 01/25/19 09:53 Miscellaneous Medication (fentaNYL Destruction) 1 ea Q72H MISC 01/20/19 08:59 02/19/19 08:58 01/23/19 08:59 Mycophenolate Mofetil (Cellcept) 750 mg Q12HR ORAL 01/22/19 21:00 02/03/19 08:59 01/25/19 09:51 Naloxone HCl (Narcan) 0.1 mg PRN IV Sedation scale 3 or 4 01/12/19 13:30 02/03/19 13:44 Ondansetron HCl (Zofran) 4 mg Q6H IVP 01/24/19 13:30 02/23/19 13:29 01/25/19 13:01 Ondansetron HCl (Zofran) 4 mg Q6H PRN IVP Nausea & Vomiting 01/18/19 10:00 01/26/19 09:59 01/22/19 05:28 Phytonadione (Vitamin K) 10 mg ONCE A WEEK SUBQ 01/22/19 12:00 02/21/19 11:59 01/22/19 13:29 Prochlorperazine (Compazine) 10 mg Q6H PRN IVP Nausea & Vomiting 01/22/19 15:30 02/21/19 15:17 01/25/19 10:33 Tacrolimus (Prograf) 1 mg DAILY ORAL 01/13/19 09:00 02/04/19 08:59 01/25/19 09:53 Tacrolimus (Prograf) 2 mg BEDTIME ORAL 01/22/19 21:00 01/26/19 20:59 01/24/19 20:29 Trazodone HCl (Desyrel) 25 mg HSPRN PRN ORAL INSOMNIA 01/12/19 20:00 02/03/19 19:59 01/25/19 01:35 Vancomycin HCl (Vanco rx to dose) 1 ea DAILY PRN MISC Per rx protocol 01/23/19 19:15 02/22/19 19:14 Vancomycin HCl 750 mg/Sodium Chloride 275 ml @ 183.333 mls/hr Q24H IVPB 01/24/19 21:00 01/29/19 20:59 01/24/19 20:30 Philly Shelby MD Jan 25, 2019 15:53
[2019-01-25 16:00] VITALS: BP 138/75
--- NOTE | 2019-01-25 16:00 | NUR ---
NURSE NOTES: During rounding pt complained of Kock pouch leaking. RN will changed per protocol. I will f/u as needed.
--- NOTE | 2019-01-25 16:23 | Surgery Progress Note ---
Surgery Progress Note Subjective Additional Comments Patient continues to have emesis intermittently. States she eats has emesis and is able to eat a little bit more without emesis. Labs okay. Still on TPN. No pain. Ostomy output noted. No nausea vomiting fever chills. Objective Last 24 Hour Vital Signs Date Time Temp Pulse Resp B/P (MAP) Pulse Ox O2 Delivery O2 Flow Rate FiO2 01/25/19 12:00 99.2 96 18 128/76 (93) 96 01/25/19 11:45 96 128/76 01/25/19 11:44 96 128/76 01/25/19 09:54 153/78 01/25/19 09:53 95 153/78 01/25/19 09:53 95 153/78 01/25/19 09:00 Room Air 01/25/19 08:00 98.4 95 18 153/78 (103) 97 01/24/19 21:00 Room Air 01/24/19 20:00 99.1 87 18 133/71 (91) 97 01/24/19 20:00 98 Room Air 21 01/24/19 16:59 92 141/78 I&O Intake and Output 01/24/19 01/25/19 19:00 07:00 Intake Total 2324 ml 2253 ml Output Total 2100 ml 2150 ml Balance 224 ml 103 ml Intake Oral 450 ml 480 ml IV Total 1874 ml 1773 ml Output Urine Total 800 ml 775 ml Emesis 925 ml 800 ml Other 375 ml 575 ml Dressing: dry Wound: clean Cardiovascular: RSR Respiratory: clear Abdomen: soft, non-tender, present bowel sounds Extremities: no edema, no tenderness, no cyanosis Laboratory Tests Test 01/25/19 05:50 White Blood Count 8.1 K/UL (4.8-10.8) Red Blood Count 2.72 M/UL (4.20-5.40) L Hemoglobin 8.5 G/DL (12.0-16.0) L Hematocrit 24.2 % (37.0-47.0) L Mean Corpuscular Volume 89 FL (80-99) Mean Corpuscular Hemoglobin 31.4 PG (27.0-31.0) H Mean Corpuscular Hemoglobin Concent 35.3 G/DL (32.0-36.0) Red Cell Distribution Width 14.7 % (11.6-14.8) Platelet Count 353 K/UL (150-450) Mean Platelet Volume 5.6 FL (6.5-10.1) L Neutrophils (%) (Auto) 68.1 % (45.0-75.0) Lymphocytes (%) (Auto) 19.7 % (20.0-45.0) L Monocytes (%) (Auto) 6.2 % (1.0-10.0) Eosinophils (%) (Auto) 5.5 % (0.0-3.0) H Basophils (%) (Auto) 0.6 % (0.0-2.0) Sodium Level 137 MMOL/L (136-145) Potassium Level 4.1 MMOL/L (3.5-5.1) Chloride Level 106 MMOL/L (98-107) Carbon Dioxide Level 24 MMOL/L (21-32) Anion Gap 8 mmol/L (5-15) Blood Urea Nitrogen 19 mg/dL (7-18) H Creatinine 1.0 MG/DL (0.55-1.30) Estimat Glomerular Filtration Rate 55.3 mL/min (>60) Glucose Level 115 MG/DL (74-106) H Calcium Level 8.9 MG/DL (8.5-10.1) Phosphorus Level 2.6 MG/DL (2.5-4.9) Magnesium Level 1.1 MG/DL (1.8-2.4) L Iron Level 25 ug/dL (50-175) L Total Iron Binding Capacity 199 ug/dL (250-450) L Percent Iron Saturation 13 % (15-50) L Unsaturated Iron Binding 174 ug/dL (112-346) Ferritin 347 NG/ML (8-388) Total Bilirubin 0.2 MG/DL (0.2-1.0) Aspartate Amino Transf (AST/SGOT) 17 U/L (15-37) Alanine Aminotransferase (ALT/SGPT) 25 U/L (12-78) Alkaline Phosphatase 221 U/L (46-116) H Total Protein 6.2 G/DL (6.4-8.2) L Albumin 2.0 G/DL (3.4-5.0) L Globulin 4.2 g/dL Albumin/Globulin Ratio 0.5 (1.0-2.7) L Thyroid Stimulating Hormone (TSH) 2.023 uiU/mL (0.358-3.740) Tacrolimus (Prograf) Level Pending Plan Problems: (1) Malfunctioning Kock Pouch Assessment & Plan: Intermittent nausea and intermittent emesis with meals labs noted exam as above -regular diet-we will plan for smoothie diet -g tube capped doing well without morales -replace electrolytes ordered will follow with recs thank you Kvng Sanchez Jan 25, 2019 16:23
--- NOTE | 2019-01-25 17:00 | NUR ---
NURSE NOTES: During rounding pt complained of Kock pouch leaking. RN will changed per protocol. I will f/u as needed.
--- NOTE | 2019-01-25 19:08 | NUR ---
HAND-OFF: Report given to Dallin Mohr pt in stable condition. Kock pouch not leaking at this time. I&O's Ileo: 425ml Emesis: 500ml Urine: 950 ml Oral intake: 550ml
--- NOTE | 2019-01-25 19:30 | NUR ---
NURSE NOTES: Received report from PATRICK Graves and rounds made. Received pt in bed, AOx4, denies any pain, no distress noted. Piccline patent and intact. TPN and IV fluid infusing as ordered. Ileo bag intact, no leakage noted. G-tube continously clamped. Denies any nausea at this time. Bed in lowest position and locked, side rails up x 2, call ligth within reach. Will continue to monitor.
[2019-01-25 20:00] VITALS: BP 127/66
--- NOTE | 2019-01-25 20:00 | NUR ---
NURSE NOTES: Dhillon pouch leaking. Replaced bag per protocol. Will continue to monitor.
[2019-01-25] MEDS: Vancomycin 750mg/NS 275ml IVPB SCH ×2 (20:35)
[2019-01-25] MEDS: Fat Emulsion Iv 20% 216 ML in Tpn 1,560 ML IV SCH (20:36)
[2019-01-25] MEDS: Dyna-Hex 2% Top Sol 2oz TOPIC SCH (20:36)
--- NOTE | 2019-01-25 23:41 | NUR ---
NURSE NOTES: Pt called noted states "I feel wet". Checked Dhillon pouch bag, leakage noted. Replaced bag again per protocol. Applied Nakul ring, cavilon barrier film and colostomy bag. No leakage noted at this time. Will continue to monitor.
--- NOTE | 2019-01-26 00:30 | NUR ---
NURSE NOTES: Dhillon pouch bag leaking. Replace bag per protocol. Applied stoma adhesive all around underneath the bag and place Nakul ring. No leakage noted. Will continue to monitor. Addendum: 01/26/19 at 0103 by ANA FISHER RN Also applied Versatel one silicone wound contact layer over the colostomy bag. No leakage noted. Will continue to monitor.
--- NOTE | 2019-01-26 03:00 | NUR ---
NURSE NOTES: Dhillon pouch leakage noted. Kept skin clean and dry. Applied silicone wound contact layer over colostomy bag. Will continue to monitor.
[2019-01-26 05:30] VITALS: BP 134/71
[2019-01-26] MEDS: Levothyroxine 125mcg tab ORAL SCH (05:34)
[2019-01-26] MEDS: NovoLOG Insulin Flexpen SUBQ SCH ×3 (05:43→17:41)
[2019-01-26 06:10] LABS: EOSINOPHILS % (AUTO) 7.4 % (0.0-3.0); HEMATOCRIT 27.3 % (37.0-47.0); HEMOGLOBIN 9.1 G/DL (12.0-16.0); LYMPHOCYTES % (AUTO) 20.8 % (20.0-45.0); MEAN CORPUSCULAR VOLUME 89 FL (80-99); MONOCYTES % (AUTO) 5.7 % (1.0-10.0); NEUTROPHILS % (AUTO) 65.2 % (45.0-75.0); PLATELET COUNT 407 K/UL (150-450); RED BLOOD COUNT 3.06 M/UL (4.20-5.40); RED CELL DISTRIBUTION WIDTH 14.5 % (11.6-14.8); WHITE BLOOD COUNT 8.2 K/UL (4.8-10.8)
[2019-01-26 06:24] LABS: ALANINE AMINOTRANSFERASE 25 U/L (12-78); ALBUMIN/GLOBULIN RATIO 0.4 (1.0-2.7); ALKALINE PHOSPHATASE 235 U/L (46-116); ANION GAP 7 mmol/L (5-15); ASPARTATE AMINO TRANSFERASE 22 U/L (15-37); BILIRUBIN,TOTAL 0.2 MG/DL (0.2-1.0); BLOOD UREA NITROGEN 16 mg/dL (7-18); CALCIUM 8.9 MG/DL (8.5-10.1); CARBON DIOXIDE 22 MMOL/L (21-32); CHLORIDE 106 MMOL/L (98-107); POTASSIUM 4.1 MMOL/L (3.5-5.1); SODIUM 135 MMOL/L (136-145)
--- NOTE | 2019-01-26 07:30 | NUR ---
NURSE NOTES: Pt lying in bed w/bed in lowest position and call light within reach. Pt A&Ox4, VSS, and in no apparent distress at this time. MARILY PICC line intact/asymptomatic w/IVF & TPN running; GT continuously clamped; reggie VISHNU; and ileo intact and not presently leaking. Per night shift manager RN, ileo appliance was changed several times last night d/t leakage; wound care nurse aware. Will continue to monitor.
--- NOTE | 2019-01-26 07:42 | NUR ---
HAND-OFF: Report given to PATRICK Rodriguez. Pt in stable condition. Dhillon pouch bag no leakage noted at this time. Endorse to PATRICK rodriguez.
[2019-01-26 08:00] VITALS: BP 162/81
[2019-01-26] MEDS: Metoprolol Succinate XL 50mg tab ORAL SCH (08:52)
[2019-01-26] MEDS: Lisinopril 20mg tab ORAL SCH (08:52)
[2019-01-26] MEDS: Mycophenolate 250mg cap ORAL SCH ×2 (08:52→20:08)
[2019-01-26] MEDS: fentaNYL Destruction MISC SCH (09:07)
--- NOTE | 2019-01-26 10:00 | NUR ---
NURSE NOTES: Yajaira ileostomy appliance changed by Fabien wound care nurse; pt tolerated well. Will continue to monitor.
--- NOTE | 2019-01-26 10:46 | Surgery Progress Note ---
Surgery Progress Note Subjective Additional Comments Patient seen and examined bedside. No acute events. States that since last night she tolerated all her pills as well as anything she is eating. No nausea vomiting over 12 hours. Labs noted. Exam stable. Ambulatory. Urinating well. Objective Last 24 Hour Vital Signs Date Time Temp Pulse Resp B/P (MAP) Pulse Ox O2 Delivery O2 Flow Rate FiO2 01/26/19 09:00 Room Air 01/26/19 08:52 102 162/81 01/26/19 08:52 162/81 01/26/19 08:52 102 162/81 01/26/19 08:00 97.9 102 18 162/81 (108) 94 01/26/19 05:30 98.8 98 18 134/71 (92) 98 01/25/19 21:00 Room Air 01/25/19 20:00 99.0 83 18 127/66 (86) 92 01/25/19 19:57 97 Room Air 21 01/25/19 17:11 82 138/75 01/25/19 16:00 99.1 82 18 138/75 (96) 96 01/25/19 12:00 99.2 96 18 128/76 (93) 96 01/25/19 11:45 96 128/76 01/25/19 11:44 96 128/76 I&O Intake and Output 01/25/19 01/26/19 19:00 07:00 Intake Total 2652 ml 2251 ml Output Total 1875 ml 1725 ml Balance 777 ml 526 ml Intake Oral 550 ml 400 ml IV Total 2102 ml 1851 ml Output Urine Total 950 ml 1200 ml Emesis 500 ml Other 425 ml 525 ml # Voids 6 Dressing: dry Wound: clean Drains: other Cardiovascular: RSR Respiratory: clear Abdomen: soft, flat, non-tender, present bowel sounds Extremities: no tenderness, no cyanosis Laboratory Tests Test 01/26/19 05:35 White Blood Count 8.2 K/UL (4.8-10.8) Red Blood Count 3.06 M/UL (4.20-5.40) L Hemoglobin 9.1 G/DL (12.0-16.0) L Hematocrit 27.3 % (37.0-47.0) L Mean Corpuscular Volume 89 FL (80-99) Mean Corpuscular Hemoglobin 29.8 PG (27.0-31.0) Mean Corpuscular Hemoglobin Concent 33.4 G/DL (32.0-36.0) Red Cell Distribution Width 14.5 % (11.6-14.8) Platelet Count 407 K/UL (150-450) Mean Platelet Volume 5.4 FL (6.5-10.1) L Neutrophils (%) (Auto) 65.2 % (45.0-75.0) Lymphocytes (%) (Auto) 20.8 % (20.0-45.0) Monocytes (%) (Auto) 5.7 % (1.0-10.0) Eosinophils (%) (Auto) 7.4 % (0.0-3.0) H Basophils (%) (Auto) 1.0 % (0.0-2.0) Sodium Level 135 MMOL/L (136-145) L Potassium Level 4.1 MMOL/L (3.5-5.1) Chloride Level 106 MMOL/L (98-107) Carbon Dioxide Level 22 MMOL/L (21-32) Anion Gap 7 mmol/L (5-15) Blood Urea Nitrogen 16 mg/dL (7-18) Creatinine 1.0 MG/DL (0.55-1.30) Estimat Glomerular Filtration Rate 55.3 mL/min (>60) Glucose Level 157 MG/DL (74-106) H Calcium Level 8.9 MG/DL (8.5-10.1) Magnesium Level 1.2 MG/DL (1.8-2.4) L Total Bilirubin 0.2 MG/DL (0.2-1.0) Aspartate Amino Transf (AST/SGOT) 22 U/L (15-37) Alanine Aminotransferase (ALT/SGPT) 25 U/L (12-78) Alkaline Phosphatase 235 U/L (46-116) H Total Protein 6.5 G/DL (6.4-8.2) Albumin 2.0 G/DL (3.4-5.0) L Globulin 4.5 g/dL Albumin/Globulin Ratio 0.4 (1.0-2.7) L Tacrolimus (Prograf) Level Pending Plan Problems: (1) Malfunctioning Kock Pouch Assessment & Plan: Intermittent nausea and intermittent emesis with meals labs noted exam as above -regular diet-we will plan for smoothie diet -g tube capped doing well without morales -replace electrolytes ordered will follow with recs thank you Kvng Sanchez Jan 26, 2019 10:46
--- NOTE | 2019-01-26 11:07 | GI Progress Note ---
Assessment/Plan Problems: (1) Malfunctioning Kock Pouch (2) History of liver transplant ICD Codes: Z94.4 - Liver transplant status SNOMED: [id number] Status: unchanged Status Narrative Discussed with Dr. Dozier. 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 I agree with the above findings, impression and plan. (Patient seen earlier today. Signature stamp does not reflect patient encounter time.). - Max Dozier MD Subjective Gastrointestinal/Abdominal: Reports: no symptoms Subjective nausea Vomiting Unable to tolerate clear liquid diet Objective Last 24 Hour Vital Signs Date Time Temp Pulse Resp B/P (MAP) Pulse Ox O2 Delivery O2 Flow Rate FiO2 01/26/19 09:22 96 Room Air 21 01/26/19 09:00 Room Air 01/26/19 08:52 102 162/81 01/26/19 08:52 162/81 01/26/19 08:52 102 162/81 01/26/19 08:00 97.9 102 18 162/81 (108) 94 01/26/19 05:30 98.8 98 18 134/71 (92) 98 01/25/19 21:00 Room Air 01/25/19 20:00 99.0 83 18 127/66 (86) 92 01/25/19 19:57 97 Room Air 21 01/25/19 17:11 82 138/75 01/25/19 16:00 99.1 82 18 138/75 (96) 96 01/25/19 12:00 99.2 96 18 128/76 (93) 96 01/25/19 11:45 96 128/76 01/25/19 11:44 96 128/76 Intake and Output 01/25/19 01/26/19 19:00 07:00 Intake Total 2652 ml 2251 ml Output Total 1875 ml 1725 ml Balance 777 ml 526 ml Intake Oral 550 ml 400 ml IV Total 2102 ml 1851 ml Output Urine Total 950 ml 1200 ml Emesis 500 ml Other 425 ml 525 ml # Voids 6 Laboratory Tests Test 01/26/19 05:35 White Blood Count 8.2 K/UL (4.8-10.8) Red Blood Count 3.06 M/UL (4.20-5.40) L Hemoglobin 9.1 G/DL (12.0-16.0) L Hematocrit 27.3 % (37.0-47.0) L Mean Corpuscular Volume 89 FL (80-99) Mean Corpuscular Hemoglobin 29.8 PG (27.0-31.0) Mean Corpuscular Hemoglobin Concent 33.4 G/DL (32.0-36.0) Red Cell Distribution Width 14.5 % (11.6-14.8) Platelet Count 407 K/UL (150-450) Mean Platelet Volume 5.4 FL (6.5-10.1) L Neutrophils (%) (Auto) 65.2 % (45.0-75.0) Lymphocytes (%) (Auto) 20.8 % (20.0-45.0) Monocytes (%) (Auto) 5.7 % (1.0-10.0) Eosinophils (%) (Auto) 7.4 % (0.0-3.0) H Basophils (%) (Auto) 1.0 % (0.0-2.0) Sodium Level 135 MMOL/L (136-145) L Potassium Level 4.1 MMOL/L (3.5-5.1) Chloride Level 106 MMOL/L (98-107) Carbon Dioxide Level 22 MMOL/L (21-32) Anion Gap 7 mmol/L (5-15) Blood Urea Nitrogen 16 mg/dL (7-18) Creatinine 1.0 MG/DL (0.55-1.30) Estimat Glomerular Filtration Rate 55.3 mL/min (>60) Glucose Level 157 MG/DL (74-106) H Calcium Level 8.9 MG/DL (8.5-10.1) Magnesium Level 1.2 MG/DL (1.8-2.4) L Total Bilirubin 0.2 MG/DL (0.2-1.0) Aspartate Amino Transf (AST/SGOT) 22 U/L (15-37) Alanine Aminotransferase (ALT/SGPT) 25 U/L (12-78) Alkaline Phosphatase 235 U/L (46-116) H Total Protein 6.5 G/DL (6.4-8.2) Albumin 2.0 G/DL (3.4-5.0) L Globulin 4.5 g/dL Albumin/Globulin Ratio 0.4 (1.0-2.7) L Tacrolimus (Prograf) Level Pending Height (Feet): 5 Height (Inches): 3.00 Weight (Pounds): 134 General Appearance: WD/WN, no apparent distress, alert Cardiovascular: normal rate Respiratory/Chest: normal breath sounds, no respiratory distress Abdominal Exam: normal bowel sounds, non tender, soft, other - ileoestomy Extremities: normal range of motion, non-tender Jeyson Luna NP Jan 26, 2019 11:07
[2019-01-26 12:00] VITALS: BP 124/71
--- NOTE | 2019-01-26 12:27 | NUR ---
Help Desk SupervisorOther Sports Coach Or Instructor SI: POD#39 S/P Resection of failed Kock Pouch POD#21 S/P Ex Lap w/Small Bowel Resection & Relocation of Ileostomy POD#18 S/P Repair of Staple Line Dehiscence POD#16 S/P Removal of Wound Vac & Repair of Bowel Leak BP: 124/71 HR:98 RR:18 T:98.7 02 Sat:99% on RA Magnesium:1.2 Alk Phos:235 IS: Magnesium Sulfate IV (4gm) TPN IVF Diflucan IV Vanco IV M/S Status DCP: Home once medically stable
--- NOTE | 2019-01-26 12:59 | Cardiology Progress Note ---
Assessment/Plan Status Narrative 1. Malfunctioning Kock pouch continent ileostomy. 2. History of ulcerative colitis. 3. History of primary sclerosing cholangitis. 4. Status post multiple abdominal operations. 4.1. Appendectomy in 1964. 4.2. Proctocolectomy and Kock pouch in 1978. 4.3. Total abdominal hysterectomy and bilateral salpingo-oophorectomy 1983 4.4. Cholecystectomy in 1985. 4.5. Orthotopic liver transplantation in 1999. 4.6. Revision of Kock pouch and repair of fistula in 2010. HTN- New onset- Controlled on Norvasc /Lisinopril and Metoprolol Tachycardia- improved with IV Fluids and Beta Blockers. Renal insuff- Most probably due volume depletion ( High GT output), - Creat 1.3 Volume depletion- high GT output- I/Os negative CT Scan done 01/18- small fluid collections, no obstruction Esophagitis Duodenal narrowing Vomiting -improving Assessment/Plan Metoprolol 25 mg QD Zestril 40 mg QD. Norvasc 5 mg BID Monitor BP TPN and Peripheral IV - taper as per Dr. Sotomayor Diet as per DR. Sotomayor Discussed with RN. Subjective Cardiovascular: Reports: no symptoms Respiratory: Reports: no symptoms Gastrointestinal/Abdominal: Reports: other - Increased output from ileostomy, leakage around the bag Genitourinary: Reports: no symptoms Subjective Still NPO vomiting x1 today Having out put from ileostomy Has been out of bed, ambulated. Pain controlled Creat 1.3 High output from GT- now being plugged Q2h S/P EGD today- showed gastriris/esophagitis with mid duodenal narrowing 01/21/19- had Gatrografin UGI study, increased ileostomy output. No vomiting today. 01/22/10- has tolerated clear liquids, had vomiting x1 this morning. 01/23- Started on solid food 01/24- Vomited after breakfast, and lunch- TPN @74 cc/h, IV @ 70 cc/h 01/26- No vomiting today, tolerated solids, still on TPN Objective Last 24 Hour Vital Signs Date Time Temp Pulse Resp B/P (MAP) Pulse Ox O2 Delivery O2 Flow Rate FiO2 01/26/19 12:00 98.2 98 124/71 (88) 01/26/19 09:22 96 Room Air 21 01/26/19 09:00 Room Air 01/26/19 08:52 102 162/81 01/26/19 08:52 162/81 01/26/19 08:52 102 162/81 01/26/19 08:00 97.9 102 18 162/81 (108) 94 01/26/19 05:30 98.8 98 18 134/71 (92) 98 01/25/19 21:00 Room Air 01/25/19 20:00 99.0 83 18 127/66 (86) 92 01/25/19 19:57 97 Room Air 21 01/25/19 17:11 82 138/75 01/25/19 16:00 99.1 82 18 138/75 (96) 96 Cardiovascular: normal rate, no gallop/murmur Respiratory/Chest: chest wall non-tender, lungs clear, normal breath sounds Abdomen: normal bowel sounds, non tender Extremities: non-tender, normal inspection, no calf tenderness, no swelling Intake and Output 01/25/19 01/26/19 19:00 07:00 Intake Total 2652 ml 2251 ml Output Total 1875 ml 1725 ml Balance 777 ml 526 ml Intake Oral 550 ml 400 ml IV Total 2102 ml 1851 ml Output Urine Total 950 ml 1200 ml Emesis 500 ml Other 425 ml 525 ml # Voids 6 Laboratory Tests Test 01/26/19 05:35 White Blood Count 8.2 K/UL (4.8-10.8) Red Blood Count 3.06 M/UL (4.20-5.40) L Hemoglobin 9.1 G/DL (12.0-16.0) L Hematocrit 27.3 % (37.0-47.0) L Mean Corpuscular Volume 89 FL (80-99) Mean Corpuscular Hemoglobin 29.8 PG (27.0-31.0) Mean Corpuscular Hemoglobin Concent 33.4 G/DL (32.0-36.0) Red Cell Distribution Width 14.5 % (11.6-14.8) Platelet Count 407 K/UL (150-450) Mean Platelet Volume 5.4 FL (6.5-10.1) L Neutrophils (%) (Auto) 65.2 % (45.0-75.0) Lymphocytes (%) (Auto) 20.8 % (20.0-45.0) Monocytes (%) (Auto) 5.7 % (1.0-10.0) Eosinophils (%) (Auto) 7.4 % (0.0-3.0) H Basophils (%) (Auto) 1.0 % (0.0-2.0) Sodium Level 135 MMOL/L (136-145) L Potassium Level 4.1 MMOL/L (3.5-5.1) Chloride Level 106 MMOL/L (98-107) Carbon Dioxide Level 22 MMOL/L (21-32) Anion Gap 7 mmol/L (5-15) Blood Urea Nitrogen 16 mg/dL (7-18) Creatinine 1.0 MG/DL (0.55-1.30) Estimat Glomerular Filtration Rate 55.3 mL/min (>60) Glucose Level 157 MG/DL (74-106) H Calcium Level 8.9 MG/DL (8.5-10.1) Magnesium Level 1.2 MG/DL (1.8-2.4) L Total Bilirubin 0.2 MG/DL (0.2-1.0) Aspartate Amino Transf (AST/SGOT) 22 U/L (15-37) Alanine Aminotransferase (ALT/SGPT) 25 U/L (12-78) Alkaline Phosphatase 235 U/L (46-116) H Total Protein 6.5 G/DL (6.4-8.2) Albumin 2.0 G/DL (3.4-5.0) L Globulin 4.5 g/dL Albumin/Globulin Ratio 0.4 (1.0-2.7) L Tacrolimus (Prograf) Level Pending Micha Ziegler MD Jan 26, 2019 12:59
--- NOTE | 2019-01-26 13:30 | NUR ---
NURSE NOTES: Fabien, wound care nurse, changed ileo appliance again d/t leakage. Will continue to monitor.
--- NOTE | 2019-01-26 13:45 | NUR ---
RD ASSESSMENT & RECOMMENDATIONS SEE CARE ACTIVITY FOR COMPLETE ASSESSMENT DAILY ESTIMATED NEEDS: Needs based on Surgery 59.8kg 25-30 kcals/kg 0516-6140 total kcals 1-2 g protein/kg 60-120 g total protein 25-30 mL/kg 8778-9476 total fluid mLs NUTRITION DIAGNOSIS: Altered GI fxn r/t h/o UC and malfunctioning kock pouch as evidenced by pt is s/p kock pouch takedown w/ creation of Yajaira ileo, now s/p ex lap, segmental small bowel resections and relocation of ileostomy, TPN at goal, on clears-> now advanced to Regular soft. CURRENT DIET:CLD -> now Regular soft PO DIET RECOMMENDATIONS: Diet per MD PARENTERAL NUTRITION RECOMMENDATIONS: D/AA Rate: 65 IL Rate: 9 Total Rate: 74 Volume: 1776 % Dextrose: 18 % AA: 5.5 Energy (kcals/kg): 1730 Protein (g/kg protein): 86 Nonprotein KCALS: 1386 GIR (mg CHO/kg/min): 3.3 % Fat KCALS: 25 NCP: N Ratio: 101:1 TPN Comment: - When able to resume TPN: rec D18% + AA 5.5% @65ml/hr + 20% IL @9ml/hr - TPN at goal meets 100% est kcal/prot needs (29 kcal/kg and 1.4g prot/kg) - Initiate at rate per MD ADDITIONAL RECOMMENDATIONS: 1) Obtain a standing weight as pt is able to ambulate in halls 2) Monitor NPO status -> monitor for ability to resume TPN / restarted 3) Monitor lytes, replete as needed Monitor LFT's, BG, Lytes w/ TPN . .
[2019-01-26 16:00] VITALS: BP 138/72
--- NOTE | 2019-01-26 16:12 | NUR ---
*-*INSURANCE *-* UPDATED CLINICALS AND REVIEW HAVE BEEN FAXED TO: [facility]#[phone]
--- NOTE | 2019-01-26 19:39 | NUR ---
HAND-OFF: Report given to PATRICK Zamarripa.
--- NOTE | 2019-01-26 19:40 | NUR ---
NURSE NOTES: Patient in bed awake and oriented. VSS. No SOB noted. PICC line dressing is clean and dry. Flushed both ports with NS. Ileo bag and dressing is dry and intact. Needs attended. Due meds given. Call light within reach. In stable condition.
[2019-01-26 20:00] VITALS: BP 135/73
[2019-01-26] MEDS: Dyna-Hex 2% Top Sol 2oz TOPIC SCH (20:07)
[2019-01-26] MEDS: Fat Emulsion Iv 20% 216 ML in Tpn 1,560 ML IV SCH (20:14)
[2019-01-26] MEDS: Vancomycin 750mg/NS 275ml IVPB SCH ×2 (21:36)
[2019-01-26] MEDS: TraZODone HCl 25 mg tablet ORAL PRN (21:36)
--- NOTE | 2019-01-26 22:25 | NUR ---
NURSE NOTES: Patients ileostomy appliance leaking. Replaced with a new one. Episode of emesis x1. Given PRN anti emetic. Needs attended. Kept comfortable.
[2019-01-27] VITALS: BP 132/71
[2019-01-27 04:00] VITALS: BP 134/75
[2019-01-27] MEDS: NovoLOG Insulin Flexpen SUBQ SCH ×4 (05:56→18:08)
[2019-01-27] MEDS: Levothyroxine 125mcg tab ORAL SCH (05:59)
[2019-01-27 06:30] LABS: BASOPHILS % (AUTO) 0.8 % (0.0-2.0); EOSINOPHILS % (AUTO) 5.4 % (0.0-3.0); HEMATOCRIT 26.4 % (37.0-47.0); HEMOGLOBIN 8.9 G/DL (12.0-16.0); MEAN CORPUSCULAR VOLUME 89 FL (80-99); MONOCYTES % (AUTO) 6.7 % (1.0-10.0); PLATELET COUNT 292 K/UL (150-450); RED BLOOD COUNT 2.96 M/UL (4.20-5.40); RED CELL DISTRIBUTION WIDTH 14.4 % (11.6-14.8); WHITE BLOOD COUNT 7.2 K/UL (4.8-10.8)
[2019-01-27 06:45] LABS: ALANINE AMINOTRANSFERASE 24 U/L (12-78); ALBUMIN/GLOBULIN RATIO 0.4 (1.0-2.7); ALKALINE PHOSPHATASE 227 U/L (46-116); ANION GAP 6 mmol/L (5-15); ASPARTATE AMINO TRANSFERASE 18 U/L (15-37); BILIRUBIN,TOTAL 0.3 MG/DL (0.2-1.0); BLOOD UREA NITROGEN 16 mg/dL (7-18); CALCIUM 9.5 MG/DL (8.5-10.1); CARBON DIOXIDE 27 MMOL/L (21-32); CHLORIDE 104 MMOL/L (98-107); PHOSPHORUS 2.8 MG/DL (2.5-4.9); POTASSIUM 3.8 MMOL/L (3.5-5.1); SODIUM 137 MMOL/L (136-145)
--- NOTE | 2019-01-27 06:50 | General Progress Note ---
Assessment/Plan Status: unchanged Assessment/Plan: fu LFTs>>> stable now cellcept 750 BID prograft 3 gm per day monitor for Lyte protonix fu surg recs abx per ID cont compazine and Zofran supportive care continue zofran and compazine trial of scoplamine repeat labs fu surg recs Subjective ROS Limited/Unobtainable: Yes Allergies: Coded Allergies: CODEINE (Verified Allergy, Severe, 12/17/18) Face contractions HYDROMORPHONE (Verified Allergy, Severe, Itching, 12/17/18) Itching whole body METOCLOPRAMIDE (Verified Allergy, Severe, 12/17/18) Face contractions MORPHINE (Verified Allergy, Severe, Shortness of Breath, 12/17/18) SULFA (SULFONAMIDE ANTIBIOTICS) (Verified Allergy, Severe, 12/17/18) Face contractions Subjective had full dinner last night but vomited 2x bile colored fluid n abd pain good ostomy out put Objective Last 24 Hour Vital Signs Date Time Temp Pulse Resp B/P (MAP) Pulse Ox O2 Delivery O2 Flow Rate FiO2 01/27/19 04:00 98.3 97 18 134/75 (94) 96 01/27/19 00:00 98.5 91 18 132/71 (91) 98 01/26/19 21:00 Room Air 01/26/19 20:00 98.9 94 18 135/73 (93) 97 01/26/19 17:34 94 138/72 01/26/19 16:00 98.2 94 20 138/72 (94) 96 01/26/19 12:00 98.2 98 124/71 (88) 01/26/19 09:22 96 Room Air 21 01/26/19 09:00 Room Air 01/26/19 08:52 102 162/81 01/26/19 08:52 162/81 01/26/19 08:52 102 162/81 01/26/19 08:00 97.9 102 18 162/81 (108) 94 Intake and Output 01/26/19 01/27/19 19:00 07:00 Intake Total 2958 ml 1352 ml Output Total 1950 ml Balance 1008 ml 1352 ml Intake Oral 860 ml IV Total 2098 ml 1352 ml Output Urine Total 1550 ml Emesis 100 ml Other 300 ml Laboratory Tests 01/26/19 20:25: Vancomycin Level Trough 5.6 01/27/19 05:30: White Blood Count [Pending], Red Blood Count [Pending], Hemoglobin [Pending], Hematocrit [Pending], Mean Corpuscular Volume [Pending], Mean Corpuscular Hemoglobin [Pending], Mean Corpuscular Hemoglobin Concent [Pending], Red Cell Distribution Width [Pending], Platelet Count [Pending], Mean Platelet Volume [ Pending], Neutrophils (%) (Auto) [Pending], Lymphocytes (%) (Auto) [Pending], Monocytes (%) (Auto) [Pending], Eosinophils (%) (Auto) [Pending], Basophils (%) (Auto) [Pending], Sodium Level [Pending], Potassium Level [Pending], Chloride Level [Pending], Carbon Dioxide Level [Pending], Blood Urea Nitrogen [Pending], Creatinine [Pending], Estimat Glomerular Filtration Rate [Pending], Glucose Level [Pending], Calcium Level [Pending], Phosphorus Level [Pending], Magnesium Level [Pending], Total Bilirubin [Pending], Aspartate Amino Transf (AST/SGOT) [ Pending], Alanine Aminotransferase (ALT/SGPT) [Pending], Alkaline Phosphatase [ Pending], Total Protein [Pending], Albumin [Pending], Globulin [Pending], Tacrolimus (Prograf) Level [Pending] Height (Feet): 5 Height (Inches): 3.00 Weight (Pounds): 134 General Appearance: alert EENT: normal ENT inspection Neck: supple Cardiovascular: normal rate Respiratory/Chest: lungs clear Abdomen: soft, hypoactive bowel sounds Extremities: non-tender Max Dozier MD Jan 27, 2019 06:50
[2019-01-27] MEDS ORDERED: TransDerm Scop 1.5mg/72HR Patch TDERMAL ONE (07:00)
--- NOTE | 2019-01-27 07:30 | NUR ---
NURSE NOTES: Pt lying in bed w/bed in lowest position and call light within reach. Pt A&Ox4, VSS, and in no apparent distress at this time. MARILY PICC line intact/asymptomatic w/IVF & TPN infusing; surgical reggie VISHNU; and ileo appliance C/D/I w/no signs of leaking. Will continue to monitor.
[2019-01-27] MEDS: Vancomycin 750mg/NS 275ml IVPB SCH ×4 (07:48→10:37)
[2019-01-27 08:00] VITALS: BP 152/74
[2019-01-27] MEDS ORDERED: fentaNYL Destruction MISC SCH (08:15)
--- NOTE | 2019-01-27 08:16 | General Progress Note ---
Progress Note Progress Note AVSS Not having any nausea but still with intermittent emesis (twice overnight 100cc each). Otherwise tolerating gastrostomy plugged and eating low residue diet only 30%. Not having pain Continued difficulty maintaining a seal with ileostomy appliance due to a crease of skin medial aspect Abdomen soft, incisions clean Urine 2550 Ileostomy 1020 Emesis 200 WBC 7200 Hgb 8.9 BUN 16 Cr 1.0 Mg 1.5 albumin 2.0 Iron 25 Imp. Partial duodenal obstruction, slowly improving with intermittent emesis and only able to eat 30% Malnutrition on TPN Malfunctioning ileostomy with difficulty keeping appliance in place Shortened bowel syndrome with high ileostomy output compared to oral intake Plan: Continue TPN but d/c supplemental IV fluids D/C Fentanyl patch - Percocet prn no need for scopolamine as emesis occurs without preceding nausea - not having any nausea, just sudden emesis change ileostomy appliance to one that uses a belt Try po high protein liquid supplement two daily Lars Sotomayor MD Jan 27, 2019 08:16
[2019-01-27] MEDS: Mycophenolate 250mg cap ORAL SCH ×2 (08:21→20:14)
[2019-01-27] MEDS: Lisinopril 20mg tab ORAL SCH (08:22)
[2019-01-27] MEDS: Metoprolol Succinate XL 50mg tab ORAL SCH (08:22)
[2019-01-27] MEDS ORDERED: Iron Sucrose 200 MG in NS 110 ML IV ONE (10:00)
[2019-01-27] MEDS ORDERED: NS 500ML ONE (10:30)
[2019-01-27] MEDS ORDERED: NS 275ml ONE (10:30)
[2019-01-27] MEDS ORDERED: Tubing IV Secondary IV ONE (10:30)
--- NOTE | 2019-01-27 11:05 | NUR ---
PT NOTE Attempted to see patient for PT treatment, patient sleeping, woke up with gentle verbal stimuli. Patient declined to participate with PT, stated that she was upset that she was woken up. Lynsey NGUYEN notified.
--- NOTE | 2019-01-27 11:30 | NUR ---
NURSE NOTES: Pt refused to have ileo appliance changed to one w/belt d/t present bag not leaking. Fabien, wound care nurse, aware. Will continue to monitor.
--- NOTE | 2019-01-27 11:47 | NUR ---
PT WEEKLY PROGRESS NOTE Patient continues to participate with PT to increase strength and activity tolerance for increased mobility independence. Patient continues to demonstrate steady progress in ease of mobility and with ambulation endurance. Patient currently able to perform bed mobility and transfers with supervision. Patient able to ambulate up to 160 ft with FWW and SBA/supervision. Patient will benefit from continued skilled inpatient PT intervention to progress with functional mobility and endurance.
[2019-01-27 12:00] VITALS: BP 134/71
--- NOTE | 2019-01-27 12:12 | NUR ---
CASE MANAGEMENT:REVIEW 01/27/19 SI: S/P RESECTION OF FAILED POUCH FOLLOWED BY MULTIPLE SURGERIES 99.1 102 18 152/74 96% ON RA H/H-8.9/26.4 MAG-1.5 IS: TPN/IL @ 74/HR IV VANCOMYCIN Q12 IV DIFLUCAN Q24 CELLCEPT PO Q12 PROGRAF PO QHS : MED/SURG STATUS 3 EAST PLAN: PARTIAL DUODENAL OBSTRUCTION SLOWLY IMPROVING. EMESIS DIFFICULTY KEEPING APPLIANCE IN PLACE
[2019-01-27] MEDS: oxyCODONE HCL/Acetaminophen 5/325mg ORAL PRN (14:01)
--- NOTE | 2019-01-27 14:28 | NUR ---
*-*INSURANCE *-* UPDATED CLINICALS AND REVIEW HAVE BEEN FAXED TO: [facility]#[phone]
--- NOTE | 2019-01-27 14:54 | Infectious Diseases Prog Note ---
Assessment/Plan Assessment/Plan ASSESSMENT AND PLAN: 1. hx of leukocytosis, fevers, ? 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 infiltrated iv, ? cellulitis right arm, n/v persists - fluconazole based on jeff species is preferred drug especially in view of micafungin treatment prior to becoming fungemic - day # 7 anti-fungal - monitor prograf levels - finish vancomycin - f/u on surveillance blood cultures - neg to date - d/w GI, RN and patient - monitor labs, leukocytosis and fevers resolved - on 2D echo - no vegetations mentioned per report 2. 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 3. Liver transplantation. 4. Sclerosing cholangitis. 5. Ulcerative colitis. 6. The patient is anemic. 7. History of cholecystectomy, appendectomy, hysterectomy, and proctocolectomy. 8. History of multiple abdominal operations. 9. Allergies to codeine, hydromorphone, metoclopramide, morphine, and sulfa. 10. Family doctor is Noncontributory. 11. Social history is negative. 12. MAR was noted. 13. Case discussed with RN. 14. Case discussed with the patient. 15. Continue treatment per Dr. Sotomayor and consultants. Subjective Constitutional: Denies: fever, fatigue, drenching sweats Respiratory: Denies: shortness of breath Cardiovascular: Denies: chest pain Gastrointestinal/Abdominal: Reports: nausea, other - no sig abdominal pain ; Denies: vomiting Neurologic: Denies: headache Psychiatric: Denies: depression Skin: Denies: rash Hematologic: Denies: bleeding Musculoskeletal: Denies: pain Allergies: Coded Allergies: CODEINE (Verified Allergy, Severe, 12/17/18) Face contractions HYDROMORPHONE (Verified Allergy, Severe, Itching, 12/17/18) Itching whole body METOCLOPRAMIDE (Verified Allergy, Severe, 12/17/18) Face contractions MORPHINE (Verified Allergy, Severe, Shortness of Breath, 12/17/18) SULFA (SULFONAMIDE ANTIBIOTICS) (Verified Allergy, Severe, 12/17/18) Face contractions Objective Vital Signs Last 24 Hour Vital Signs Date Time Temp Pulse Resp B/P (MAP) Pulse Ox O2 Delivery O2 Flow Rate FiO2 01/27/19 12:00 99.0 95 18 134/71 (92) 96 01/27/19 09:00 Room Air 01/27/19 08:22 102 152/74 01/27/19 08:22 152/74 01/27/19 08:22 102 152/74 01/27/19 08:00 99.1 102 18 152/74 (100) 96 01/27/19 04:00 98.3 97 18 134/75 (94) 96 01/27/19 00:00 98.5 91 18 132/71 (91) 98 01/26/19 21:00 Room Air 01/26/19 20:00 98.9 94 18 135/73 (93) 97 01/26/19 17:34 94 138/72 01/26/19 16:00 98.2 94 20 138/72 (94) 96 Height (Feet): 5 Height (Inches): 3.00 Weight (Pounds): 134 General Appearance: no acute distress HEENT: normocephalic, atraumatic, anicteric, mucous membranes moist Respiratory/Chest: lungs clear, normal breath sounds, no respiratory distress, no accessory muscle use Cardiovascular: normal rate, regular rhythm, no gallop/murmur, no JVD Abdomen: normal bowel sounds, soft, non tender, no organomegaly, non distended Genitourinary: other - no morales, no cva pain Extremities: no cyanosis, other - no right arm redness Skin: no rash Neurologic/Psychiatric: 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 Evidence of total colectomy. Right lower abdominal wall ostomy is new since prior study. Previously seen left lower quadrant ostomy has been taken down. 2. Prominent proximal duodenum narrowing between the SMA and aorta. Query SMA syndrome. 3. Left lower abdominal wall percutaneous drainage catheter with tip in the right anterior lower abdomen. There is 3.6 x 6 cm fluid collection in the anterior lower pelvis and another loculated 2.8 x 3 cm collection to the right, likely connecting. There are surgical clips associated with the fluid collections and this may be unopacified patulous small bowel, limited as the oral contrast has not reached the distal small bowel loops. Consider delayed imaging. 4. Smaller loculated fluid with small air bubbles in the pelvis, likely due to recent postop changes, cannot exclude fistula or leak. 5. Anterior abdominal wall vertical incision with small fluid along the incision in the subcutaneous soft tissue. 6. Percutaneous gastrostomy tube. 7. Tiny bilateral nonobstructive renal stones. No ureteral stone or renal obstruction. CT abdomen and pelvis - 12/26/18 - Status post recent abdominal surgery with creation of a left lower quadrant Yajaira ileostomy. Good bowel and bag opacification with no evidence of bowel obstruction. Unusual, markedly distended unopacified loop of bowel in the pelvis. Although unopacified, this does not appear to be an abscess as there is a wall and other characteristics more in keeping with bowel. Would consider a large diverticulum or possibly remnant of the previous Kock pouch or part of the small bowel leading to the old pouch as those segments are sometimes quite distended. Status post liver transplant. Status post cholecystectomy. Mild basal atelectasis. Chest x-ray - no pna, report noted CT abdomen/pelvis - 12/30/18 - Impression: Postsurgical changes, as described Unusual tubular structure filled mostly with gas but also some fluid communicating with the small bowel at the site of a right lower quadrant enteroenterostomy. Uncertain as to whether this represents an unusual large diverticulum, a true extraluminal gas collection, or a portion of an old continent ileostomy pouch. This is also previously described Dilated proximal small bowel proximal to the enteroenterostomy with slow forward propulsion of contents. Partial small bowel obstruction not completely excludable although unlikely given evidence of forward propulsion of contrast and filling of the ileostomy on prior 12/26/2018 exam; findings most likely functional in nature. Correlate with clinical findings Small anterior pelvic and deep pelvic fluid pockets, most likely represent retained postoperative fluid collections. Abscess as etiology of any of these not completely excludable; correlation with clinical findings recommended Postsurgical changes of the liver status post transplantation Punctate nonobstructing bilateral intrarenal calculi Bilateral basilar pulmonary parenchymal atelectasis and/or scarring Chest x-ray - 01/07/19 - Images previously reviewed in person with Dr. Sotomayor Interval placement of a right transjugular central line, catheter tip in the region of the high right atrium. Left arm PICC line remains in place with the catheter tip at the cavoatrial junction. No evidence of pneumothorax. No definite focal airspace consolidation or pleural effusion. Surgical clips noted projecting over the upper abdomen. Microbiology Date/Time Source Procedure Growth Status 01/21/19 04:40 Blood Blood Culture - Final NO GROWTH AFTER 5 DAYS Complete 01/08/19 16:00 Stool Clostridium difficile Toxin Assay - Final Complete 01/17/19 19:14 Indwelling Cath Urine Culture - Final Jeff Parapsilosis Complete 01/06/19 22:30 Abdominal Fluid Gram Stain - Final Complete 01/06/19 22:30 Body Fluid Culture - Final Jeff Albicans Complete Laboratory Tests Test 01/26/19 20:25 01/27/19 05:30 Vancomycin Level Trough 5.6 ug/mL (5.0-12.0) White Blood Count 7.2 K/UL (4.8-10.8) Red Blood Count 2.96 M/UL (4.20-5.40) L Hemoglobin 8.9 G/DL (12.0-16.0) L Hematocrit 26.4 % (37.0-47.0) L Mean Corpuscular Volume 89 FL (80-99) Mean Corpuscular Hemoglobin 29.9 PG (27.0-31.0) Mean Corpuscular Hemoglobin Concent 33.7 G/DL (32.0-36.0) Red Cell Distribution Width 14.4 % (11.6-14.8) Platelet Count 292 K/UL (150-450) Mean Platelet Volume 5.4 FL (6.5-10.1) L Neutrophils (%) (Auto) 71.0 % (45.0-75.0) Lymphocytes (%) (Auto) 16.0 % (20.0-45.0) L Monocytes (%) (Auto) 6.7 % (1.0-10.0) Eosinophils (%) (Auto) 5.4 % (0.0-3.0) H Basophils (%) (Auto) 0.8 % (0.0-2.0) Sodium Level 137 MMOL/L (136-145) Potassium Level 3.8 MMOL/L (3.5-5.1) Chloride Level 104 MMOL/L (98-107) Carbon Dioxide Level 27 MMOL/L (21-32) Anion Gap 6 mmol/L (5-15) Blood Urea Nitrogen 16 mg/dL (7-18) Creatinine 1.0 MG/DL (0.55-1.30) Estimat Glomerular Filtration Rate 55.3 mL/min (>60) Glucose Level 120 MG/DL (74-106) H Calcium Level 9.5 MG/DL (8.5-10.1) Phosphorus Level 2.8 MG/DL (2.5-4.9) Magnesium Level 1.5 MG/DL (1.8-2.4) L Total Bilirubin 0.3 MG/DL (0.2-1.0) Aspartate Amino Transf (AST/SGOT) 18 U/L (15-37) Alanine Aminotransferase (ALT/SGPT) 24 U/L (12-78) Alkaline Phosphatase 227 U/L (46-116) H Total Protein 6.5 G/DL (6.4-8.2) Albumin 2.0 G/DL (3.4-5.0) L Globulin 4.5 g/dL Albumin/Globulin Ratio 0.4 (1.0-2.7) L Tacrolimus (Prograf) Level Pending Current Medications Medications (Trade) Dose Ordered Sig/Kajal Route PRN Reason Start Time Stop Time Status Last Admin Dose Admin Acetaminophen (Tylenol) 650 mg Q6H PRN ORAL headache 01/14/19 09:00 02/13/19 08:59 Al Hydroxide/Mg Hydroxide (Mylanta) 30 ml Q6H PRN ORAL dyspepsia 01/25/19 20:00 02/09/19 19:59 01/26/19 20:07 Amlodipine Besylate (Norvasc) 5 mg BID ORAL 01/12/19 18:00 02/02/19 08:59 01/27/19 08:22 Chlorhexidine Gluconate (Yulia-Hex 2%) 1 applic DAILY@1999 TOPIC 01/22/19 20:00 02/21/19 19:59 01/26/19 20:07 Clonidine HCl (Catapres Tab) 0.1 mg Q6H PRN SL SBP>150 mmHg 01/21/19 08:45 01/30/19 08:44 Dextrose 1,000 ml @ 0 mls/hr Q24H PRN IV PN interrupted or unavailable 01/22/19 20:00 02/21/19 19:59 Dextrose (Dextrose 50%) 25 ml Q30M PRN IV Hypoglycemia 01/22/19 11:30 02/21/19 11:29 Dextrose (Dextrose 50%) 50 ml Q30M PRN IV Hypoglycemia 01/22/19 11:30 02/21/19 11:29 Diphenhydramine HCl (Benadryl) 50 mg Q4H PRN ORAL Itching 01/25/19 18:00 02/08/19 17:59 Fat Emulsion Intravenous 216 ml/Amino Acids/ Electrolytes/ Dextrose 1,776 ml @ 74 mls/hr Q24H IV 01/25/19 20:00 02/24/19 19:59 01/26/19 20:14 Fentanyl Citrate (Sublimaze 100 mcg/2 mL) 8 mcg Q2H PRN SUBQ Breakthrough pain 01/21/19 08:45 01/28/19 08:44 Fluconazole/ Sodium Chloride 200 ml @ 200 mls/hr Q24H IV 01/25/19 17:00 02/01/19 16:59 01/26/19 17:34 Heparin Sodium/ Sodium Chloride (Heparin 1000 units/500ml Premix) 1,000 unit ONCE PRN IV PICC PLACEMENT 01/22/19 11:30 02/21/19 11:29 Insulin Aspart (NovoLOG) Q6HR SUBQ 01/23/19 00:00 02/22/19 00:00 01/27/19 12:24 Levothyroxine Sodium (Synthroid) 125 mcg DAILY@0630 ORAL 01/24/19 06:30 02/23/19 06:29 01/27/19 05:59 Lidocaine HCl (Xylocaine Jelly 2%) 1 applic Q3H PRN TOPIC BURNING AROUND MEATUS 01/14/19 17:15 02/13/19 17:14 01/17/19 12:50 Lisinopril (Prinivil) 40 mg DAILY ORAL 01/13/19 09:00 01/30/19 08:59 01/27/19 08:22 Metoprolol Succinate (Toprol XL) 50 mg DAILY ORAL 01/23/19 09:00 02/02/19 08:59 01/27/19 08:22 Mycophenolate Mofetil (Cellcept) 750 mg Q12HR ORAL 01/22/19 21:00 02/03/19 08:59 01/27/19 08:21 Naloxone HCl (Narcan) 0.1 mg PRN IV Sedation scale 3 or 4 01/12/19 13:30 02/03/19 13:44 Ondansetron HCl (Zofran) 4 mg Q6H PRN IVP Nausea & Vomiting 01/25/19 16:00 02/02/19 15:59 Oxycodone/ Acetaminophen (Percocet 5-325) 1 tab Q4H PRN ORAL For Pain 01/27/19 08:15 02/03/19 08:14 01/27/19 14:01 Phytonadione (Vitamin K) 10 mg ONCE A WEEK SUBQ 01/22/19 12:00 02/21/19 11:59 01/22/19 13:29 Prochlorperazine (Compazine) 10 mg Q6H PRN IVP Nausea & Vomiting 01/22/19 15:30 02/21/19 15:17 01/27/19 13:25 Tacrolimus (Prograf) 1 mg DAILY ORAL 01/13/19 09:00 02/04/19 08:59 01/27/19 08:22 Tacrolimus (Prograf) 2 mg BEDTIME ORAL 01/25/19 21:00 01/29/19 20:59 01/26/19 20:08 Trazodone HCl (Desyrel) 25 mg HSPRN PRN ORAL INSOMNIA 01/12/19 20:00 02/03/19 19:59 01/26/19 21:36 Philly Shelby MD Jan 27, 2019 14:54
[2019-01-27 16:00] VITALS: BP 146/78
--- NOTE | 2019-01-27 19:37 | NUR ---
HAND-OFF: Report given to PATRICK Zamarripa.
[2019-01-27 20:00] VITALS: BP 138/81
--- NOTE | 2019-01-27 20:00 | NUR ---
NURSE NOTES: Patient in bed awake and oriented. VSS. No SOB noted. episode of N&V noted. Emesis x1 300cc output. PRN zofran given. PRN benadryl given as well. Ileo appliance is clean and intact without leaks. Did patient teaching regarding emptying ileo bag. HOB elevated. TPN tolerated well. Needs attended. In stable condition.
[2019-01-27] MEDS: Dyna-Hex 2% Top Sol 2oz TOPIC SCH (20:13)
[2019-01-27] MEDS: Fat Emulsion Iv 20% 216 ML in Tpn 1,560 ML IV SCH (20:28)
[2019-01-28 04:00] VITALS: BP 139/86
[2019-01-28 05:55] LABS: BASOPHILS % (AUTO) 1.1 % (0.0-2.0); EOSINOPHILS % (AUTO) 5.3 % (0.0-3.0); HEMOGLOBIN 9.6 G/DL (12.0-16.0); LYMPHOCYTES % (AUTO) 13.6 % (20.0-45.0); MEAN CORPUSCULAR VOLUME 89 FL (80-99); MONOCYTES % (AUTO) 7.1 % (1.0-10.0); NEUTROPHILS % (AUTO) 72.9 % (45.0-75.0); PLATELET COUNT 351 K/UL (150-450); RED BLOOD COUNT 3.25 M/UL (4.20-5.40); RED CELL DISTRIBUTION WIDTH 14.1 % (11.6-14.8); WHITE BLOOD COUNT 8.4 K/UL (4.8-10.8)
[2019-01-28 06:08] LABS: ALANINE AMINOTRANSFERASE 25 U/L (12-78); ALBUMIN 2.2 G/DL (3.4-5.0); ALBUMIN/GLOBULIN RATIO 0.4 (1.0-2.7); ALKALINE PHOSPHATASE 251 U/L (46-116); ANION GAP 7 mmol/L (5-15); ASPARTATE AMINO TRANSFERASE 20 U/L (15-37); BILIRUBIN,TOTAL 0.2 MG/DL (0.2-1.0); BLOOD UREA NITROGEN 23 mg/dL (7-18); CALCIUM 9.9 MG/DL (8.5-10.1); CARBON DIOXIDE 29 MMOL/L (21-32); CHLORIDE 101 MMOL/L (98-107); CREATININE 1.2 MG/DL (0.55-1.30); POTASSIUM 3.8 MMOL/L (3.5-5.1); SODIUM 137 MMOL/L (136-145)
[2019-01-28] MEDS: Levothyroxine 125mcg tab ORAL SCH (06:19)
[2019-01-28] MEDS: NovoLOG Insulin Flexpen SUBQ SCH ×4 (06:51→18:20)
--- NOTE | 2019-01-28 07:30 | NUR ---
NURSE NOTES: Received report from Dallin NGUYEN. Patient is awake and oriented, reporting no pain. Reporting mild nausea but reports she does not want anti-emetic medication at this time. MARILY PICC intact, asymptomatic, running TPN per order. External ileostomy appliance in place, no leaking noted. G-tube plugged. Updated on plan of care for the day. Side rails upx2, bed low and locked, call light in reach. Will continue to monitor.
[2019-01-28 08:00] VITALS: BP 161/83
--- NOTE | 2019-01-28 08:33 | General Progress Note ---
Progress Note Progress Note AVSS Had emesis x 3 total 1400cc. Ate only 20% but took 2120cc po liquid intake No nausea before emesis Abdomen mildly distended. Current ileostomy appliance stable x 24 hours Urine 2650 Ileostomy 1300 Emesis 1400cc Hgb 9.6 (getting Venofer) Mg 2 Albumin up 2.2 Imp: Persistent partial duodenal obstruction with high volume emesis Plan: resume suction to gastrostomy catheter continue TPN Venofer monitor labs clear liquids only po Lars Sotomayor MD Jan 28, 2019 08:33
--- NOTE | 2019-01-28 08:35 | NUR ---
NURSE NOTES: Noted patient systolic BP >160. Will administer scheduled BP medications, reassess and give PRN clonidine if indicated.
[2019-01-28] MEDS: Mycophenolate 250mg cap ORAL SCH ×2 (08:43→23:07)
[2019-01-28] MEDS: Metoprolol Succinate XL 50mg tab ORAL SCH (08:44)
[2019-01-28] MEDS: Lisinopril 20mg tab ORAL SCH (08:44)
--- NOTE | 2019-01-28 09:27 | NUR ---
NURSE NOTES: When CN doing morning round found patient vomiting, noted some pills in the emesis patient just took the medication, Pharmacist Kaila notified , medication will be administer again.
[2019-01-28] MEDS ORDERED: Lisinopril 20mg tab ORAL SCH (09:30)
--- NOTE | 2019-01-28 09:37 | NUR ---
NURSE NOTES: Patient vomited 100mL of emesis right after taking morning medications. Pharmacist Kaila notified and aware, medications wasted with TOMMY Colunga. Medications re-ordered by pharmacist, will administer per order.
[2019-01-28] MEDS ORDERED: Mycophenolate 250mg cap ORAL SCH (09:45)
[2019-01-28] MEDS ORDERED: Metoprolol Succinate XL 50mg tab ORAL SCH (09:45)
[2019-01-28] MEDS ORDERED: Iron Sucrose 200 MG in NS 110 ML IV ONE (10:00)
--- NOTE | 2019-01-28 10:58 | NUR ---
NURSE NOTES: Patient had another small episode of emesis, 50mL out. Zofran given and patient reports she is now feeling better, reports she does not need compazine at this time.
--- NOTE | 2019-01-28 11:00 | NUR ---
NURSE NOTES: Gastrostomy hooked to wall suction per MD order following 1 hour plugging for PO meds.
[2019-01-28 12:00] VITALS: BP 143/78
--- NOTE | 2019-01-28 12:25 | GI Progress Note ---
Assessment/Plan Problems: (1) Malfunctioning Kock Pouch (2) History of liver transplant ICD Codes: Z94.4 - Liver transplant status SNOMED: [id number] Status: stable Status Narrative Discussed with Dr. Dozier. 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 I agree with the above findings, impression and plan. (Patient seen earlier today. Signature stamp does not reflect patient encounter time.). - Max Dozier MD Subjective Subjective had severe amounts of emesis last night Objective Last 24 Hour Vital Signs Date Time Temp Pulse Resp B/P (MAP) Pulse Ox O2 Delivery O2 Flow Rate FiO2 01/28/19 09:45 102 161/83 01/28/19 09:44 102 161/83 01/28/19 09:44 161/83 01/28/19 08:44 102 161/83 01/28/19 08:44 161/83 01/28/19 08:44 102 161/83 01/28/19 08:00 99.7 102 18 161/83 (109) 96 01/28/19 04:00 97.9 97 18 139/86 (103) 98 01/27/19 21:00 Room Air 01/27/19 20:00 98.5 96 18 138/81 (100) 96 01/27/19 18:06 95 146/78 01/27/19 16:00 98.7 95 18 146/78 (100) 94 Intake and Output 01/27/19 01/28/19 19:00 07:00 Intake Total 3159.000 ml 1540 ml Output Total 2050 ml 2950 ml Balance 1109.000 ml -1410 ml Intake Oral 1320 ml 800 ml IV Total 1839.000 ml 740 ml Output Urine Total 1450 ml 1200 ml Emesis 50 ml 1000 ml Other 550 ml 750 ml Laboratory Tests Test 01/28/19 05:10 White Blood Count 8.4 K/UL (4.8-10.8) Red Blood Count 3.25 M/UL (4.20-5.40) L Hemoglobin 9.6 G/DL (12.0-16.0) L Hematocrit 29.0 % (37.0-47.0) L Mean Corpuscular Volume 89 FL (80-99) Mean Corpuscular Hemoglobin 29.6 PG (27.0-31.0) Mean Corpuscular Hemoglobin Concent 33.2 G/DL (32.0-36.0) Red Cell Distribution Width 14.1 % (11.6-14.8) Platelet Count 351 K/UL (150-450) Mean Platelet Volume 5.5 FL (6.5-10.1) L Neutrophils (%) (Auto) 72.9 % (45.0-75.0) Lymphocytes (%) (Auto) 13.6 % (20.0-45.0) L Monocytes (%) (Auto) 7.1 % (1.0-10.0) Eosinophils (%) (Auto) 5.3 % (0.0-3.0) H Basophils (%) (Auto) 1.1 % (0.0-2.0) Sodium Level 137 MMOL/L (136-145) Potassium Level 3.8 MMOL/L (3.5-5.1) Chloride Level 101 MMOL/L (98-107) Carbon Dioxide Level 29 MMOL/L (21-32) Anion Gap 7 mmol/L (5-15) Blood Urea Nitrogen 23 mg/dL (7-18) H Creatinine 1.2 MG/DL (0.55-1.30) Estimat Glomerular Filtration Rate 44.8 mL/min (>60) Glucose Level 150 MG/DL (74-106) H Calcium Level 9.9 MG/DL (8.5-10.1) Magnesium Level 2.0 MG/DL (1.8-2.4) Total Bilirubin 0.2 MG/DL (0.2-1.0) Aspartate Amino Transf (AST/SGOT) 20 U/L (15-37) Alanine Aminotransferase (ALT/SGPT) 25 U/L (12-78) Alkaline Phosphatase 251 U/L (46-116) H Total Protein 7.1 G/DL (6.4-8.2) Albumin 2.2 G/DL (3.4-5.0) L Globulin 4.9 g/dL Albumin/Globulin Ratio 0.4 (1.0-2.7) L Vitamin B12 Level 422 PG/ML (193-986) Height (Feet): 5 Height (Inches): 3.00 Weight (Pounds): 134 General Appearance: WD/WN, no apparent distress, alert Cardiovascular: normal rate Respiratory/Chest: normal breath sounds, no respiratory distress Abdominal Exam: normal bowel sounds, non tender, soft Extremities: non-tender Jeyson Luna NP Jan 28, 2019 12:25
--- NOTE | 2019-01-28 14:22 | NUR ---
CASE MANAGEMENT:REVIEW 01/28/19 SI: S/P RESECTION OF FAILED POUCH FOLLOWED BY MULTIPLE SURGERIES 99.1 102 18 152/74 96% ON RA H/H-8.9/26.4 MAG-1.5 IS: TPN/IL @ 74/HR IV VANCOMYCIN Q12 IV DIFLUCAN Q24 CELLCEPT PO Q12 PROGRAF PO QHS : MED/SURG STATUS 3 [facility] PLAN: EMESIS X3 = 1400CC PERSISTENT PARTIAL DUODENAL OBSTRUCTION W/HIGH VOLUME EMESIS RESUME SUCTION TO GASTROSTOMY CATHETER CONTINUE TPN CLEAR LIQUIDS ONLY
--- NOTE | 2019-01-28 15:41 | NUR ---
*-*INSURANCE *-* UPDATED CLINICALS AND REVIEW HAVE BEEN FAXED TO: [facility]#[phone]
[2019-01-28 16:00] VITALS: BP 133/73
--- NOTE | 2019-01-28 18:58 | NUR ---
NURSE NOTES: Total ileo output: 450mL Total g-tube output: +720mL Patient had 2 episodes of emesis this morning (total 150mL of emesis). Tolerating clear liquids well with g-tube to wall suction.
--- NOTE | 2019-01-28 19:30 | NUR ---
NURSE NOTES: Receive a report from PATRICK Chappell. Round is done. Pt is awake and alert, lying in bed. No acute distress noted. Denies pain on abdomen. Op site is open to the air with reggie. Mild nausea noted but no vomitus noted. Denies medication at this time. Unclamped Gastrostomy with continuous moderate wall suction one hour after administration of medication. Provide popsicles per pt's request. TPN is running via PICC on MARILY without infiltration. Green-brownish drainage is collected via RLQ Yajaira Ileostomy. Call light within reach. Will continue to monitor.
--- NOTE | 2019-01-28 19:31 | NUR ---
HAND-OFF: Report given to John NGUYEN.
--- NOTE | 2019-01-28 19:32 | Infectious Diseases Prog Note ---
Assessment/Plan Assessment/Plan ASSESSMENT AND PLAN: 1. hx of leukocytosis, fevers, ? 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 infiltrated iv, ? cellulitis right arm - now resolved n/v persists, partial duodenal obstruction - fluconazole based on jeff species is preferred drug especially in view of micafungin treatment prior to becoming fungemic - day # 8 anti-fungal - monitor prograf levels - finish vancomycin - f/u on surveillance blood cultures - neg to date - d/w GI, RN and patient - monitor labs, leukocytosis and fevers resolved - on 2D echo - no vegetations mentioned per report 2. 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 3. Liver transplantation. 4. Sclerosing cholangitis. 5. Ulcerative colitis. 6. The patient is anemic. 7. History of cholecystectomy, appendectomy, hysterectomy, and proctocolectomy. 8. History of multiple abdominal operations. 9. Allergies to codeine, hydromorphone, metoclopramide, morphine, and sulfa. 10. Family doctor is Noncontributory. 11. Social history is negative. 12. MAR was noted. 13. Case discussed with RN. 14. Case discussed with the patient. 15. Continue treatment per Dr. Sotomayor and consultants. Subjective Constitutional: Denies: fever HEENT: Denies: congestion Respiratory: Denies: shortness of breath Cardiovascular: Denies: chest pain Gastrointestinal/Abdominal: Reports: other - no abdominal pain; Denies: nausea , vomiting Genitourinary: Reports: other - no morales Neurologic: Denies: headache Psychiatric: Denies: depression Skin: Denies: rash Hematologic: Denies: bleeding Musculoskeletal: Denies: pain Allergies: Coded Allergies: CODEINE (Verified Allergy, Severe, 12/17/18) Face contractions HYDROMORPHONE (Verified Allergy, Severe, Itching, 12/17/18) Itching whole body METOCLOPRAMIDE (Verified Allergy, Severe, 12/17/18) Face contractions MORPHINE (Verified Allergy, Severe, Shortness of Breath, 12/17/18) SULFA (SULFONAMIDE ANTIBIOTICS) (Verified Allergy, Severe, 12/17/18) Face contractions Objective Vital Signs Last 24 Hour Vital Signs Date Time Temp Pulse Resp B/P (MAP) Pulse Ox O2 Delivery O2 Flow Rate FiO2 01/28/19 18:20 90 133/73 01/28/19 16:00 99.2 90 17 133/73 (93) 94 01/28/19 12:00 98.7 93 18 143/78 (99) 96 01/28/19 09:45 102 161/83 01/28/19 09:44 102 161/83 01/28/19 09:44 161/83 01/28/19 09:00 Room Air 01/28/19 08:44 102 161/83 01/28/19 08:44 161/83 01/28/19 08:44 102 161/83 01/28/19 08:00 99.7 102 18 161/83 (109) 96 01/28/19 04:00 97.9 97 18 139/86 (103) 98 01/27/19 21:00 Room Air 01/27/19 20:00 98.5 96 18 138/81 (100) 96 Height (Feet): 5 Height (Inches): 3.00 Weight (Pounds): 134 General Appearance: no acute distress HEENT: normocephalic, atraumatic, anicteric, mucous membranes moist Respiratory/Chest: lungs clear, normal breath sounds, no respiratory distress, no accessory muscle use Cardiovascular: normal rate, regular rhythm, no gallop/murmur, no JVD Abdomen: normal bowel sounds, soft, non tender, no organomegaly, non distended Genitourinary: other - no morales Extremities: no cyanosis Skin: no rash Neurologic/Psychiatric: hydropulper II-XII grossly normal, alert, oriented x 3, responsive Lymphatic: no neck adenopathy Musculoskeletal: no effusion Objective CT scan abdomen and pelvis - 01/18/19 - 1. Evidence of total colectomy. Right lower abdominal wall ostomy is new since prior study. Previously seen left lower quadrant ostomy has been taken down. 2. Prominent proximal duodenum narrowing between the SMA and aorta. Query SMA syndrome. 3. Left lower abdominal wall percutaneous drainage catheter with tip in the right anterior lower abdomen. There is 3.6 x 6 cm fluid collection in the anterior lower pelvis and another loculated 2.8 x 3 cm collection to the right, likely connecting. There are surgical clips associated with the fluid collections and this may be unopacified patulous small bowel, limited as the oral contrast has not reached the distal small bowel loops. Consider delayed imaging. 4. Smaller loculated fluid with small air bubbles in the pelvis, likely due to recent postop changes, cannot exclude fistula or leak. 5. Anterior abdominal wall vertical incision with small fluid along the incision in the subcutaneous soft tissue. 6. Percutaneous gastrostomy tube. 7. Tiny bilateral nonobstructive renal stones. No ureteral stone or renal obstruction. CT abdomen and pelvis - 12/26/18 - Status post recent abdominal surgery with creation of a left lower quadrant Yajaira ileostomy. Good bowel and bag opacification with no evidence of bowel obstruction. Unusual, markedly distended unopacified loop of bowel in the pelvis. Although unopacified, this does not appear to be an abscess as there is a wall and other characteristics more in keeping with bowel. Would consider a large diverticulum or possibly remnant of the previous Kock pouch or part of the small bowel leading to the old pouch as those segments are sometimes quite distended. Status post liver transplant. Status post cholecystectomy. Mild basal atelectasis. Chest x-ray - no pna, report noted CT abdomen/pelvis - 12/30/18 - Impression: Postsurgical changes, as described Unusual tubular structure filled mostly with gas but also some fluid communicating with the small bowel at the site of a right lower quadrant enteroenterostomy. Uncertain as to whether this represents an unusual large diverticulum, a true extraluminal gas collection, or a portion of an old continent ileostomy pouch. This is also previously described Dilated proximal small bowel proximal to the enteroenterostomy with slow forward propulsion of contents. Partial small bowel obstruction not completely excludable although unlikely given evidence of forward propulsion of contrast and filling of the ileostomy on prior 12/26/2018 exam; findings most likely functional in nature. Correlate with clinical findings Small anterior pelvic and deep pelvic fluid pockets, most likely represent retained postoperative fluid collections. Abscess as etiology of any of these not completely excludable; correlation with clinical findings recommended Postsurgical changes of the liver status post transplantation Punctate nonobstructing bilateral intrarenal calculi Bilateral basilar pulmonary parenchymal atelectasis and/or scarring Chest x-ray - 01/07/19 - Images previously reviewed in person with Dr. Sotomayor Interval placement of a right transjugular central line, catheter tip in the region of the high right atrium. Left arm PICC line remains in place with the catheter tip at the cavoatrial junction. No evidence of pneumothorax. No definite focal airspace consolidation or pleural effusion. Surgical clips noted projecting over the upper abdomen. Microbiology Date/Time Source Procedure Growth Status 01/21/19 04:40 Blood Blood Culture - Final NO GROWTH AFTER 5 DAYS Complete 01/08/19 16:00 Stool Clostridium difficile Toxin Assay - Final Complete 01/17/19 19:14 Indwelling Cath Urine Culture - Final Jeff Parapsilosis Complete 01/06/19 22:30 Abdominal Fluid Gram Stain - Final Complete 01/06/19 22:30 Body Fluid Culture - Final Jeff Albicans Complete Laboratory Tests Test 01/28/19 05:10 White Blood Count 8.4 K/UL (4.8-10.8) Red Blood Count 3.25 M/UL (4.20-5.40) L Hemoglobin 9.6 G/DL (12.0-16.0) L Hematocrit 29.0 % (37.0-47.0) L Mean Corpuscular Volume 89 FL (80-99) Mean Corpuscular Hemoglobin 29.6 PG (27.0-31.0) Mean Corpuscular Hemoglobin Concent 33.2 G/DL (32.0-36.0) Red Cell Distribution Width 14.1 % (11.6-14.8) Platelet Count 351 K/UL (150-450) Mean Platelet Volume 5.5 FL (6.5-10.1) L Neutrophils (%) (Auto) 72.9 % (45.0-75.0) Lymphocytes (%) (Auto) 13.6 % (20.0-45.0) L Monocytes (%) (Auto) 7.1 % (1.0-10.0) Eosinophils (%) (Auto) 5.3 % (0.0-3.0) H Basophils (%) (Auto) 1.1 % (0.0-2.0) Sodium Level 137 MMOL/L (136-145) Potassium Level 3.8 MMOL/L (3.5-5.1) Chloride Level 101 MMOL/L (98-107) Carbon Dioxide Level 29 MMOL/L (21-32) Anion Gap 7 mmol/L (5-15) Blood Urea Nitrogen 23 mg/dL (7-18) H Creatinine 1.2 MG/DL (0.55-1.30) Estimat Glomerular Filtration Rate 44.8 mL/min (>60) Glucose Level 150 MG/DL (74-106) H Calcium Level 9.9 MG/DL (8.5-10.1) Magnesium Level 2.0 MG/DL (1.8-2.4) Total Bilirubin 0.2 MG/DL (0.2-1.0) Aspartate Amino Transf (AST/SGOT) 20 U/L (15-37) Alanine Aminotransferase (ALT/SGPT) 25 U/L (12-78) Alkaline Phosphatase 251 U/L (46-116) H Total Protein 7.1 G/DL (6.4-8.2) Albumin 2.2 G/DL (3.4-5.0) L Globulin 4.9 g/dL Albumin/Globulin Ratio 0.4 (1.0-2.7) L Vitamin B12 Level 422 PG/ML (193-986) Current Medications Medications (Trade) Dose Ordered Sig/Kajal Route PRN Reason Start Time Stop Time Status Last Admin Dose Admin Acetaminophen (Tylenol) 650 mg Q6H PRN ORAL headache 01/14/19 09:00 02/13/19 08:59 Al Hydroxide/Mg Hydroxide (Mylanta) 30 ml Q6H PRN ORAL dyspepsia 01/25/19 20:00 02/09/19 19:59 01/27/19 19:27 Amlodipine Besylate (Norvasc) 5 mg BID ORAL 01/12/19 18:00 02/02/19 08:59 01/28/19 18:20 Chlorhexidine Gluconate (Yulia-Hex 2%) 1 applic DAILY@2000 TOPIC 01/22/19 20:00 02/21/19 19:59 01/27/19 20:13 Clonidine HCl (Catapres Tab) 0.1 mg Q6H PRN SL SBP>150 mmHg 01/21/19 08:45 01/30/19 08:44 Dextrose 1,000 ml @ 0 mls/hr Q24H PRN IV PN interrupted or unavailable 01/22/19 20:00 02/21/19 19:59 Dextrose (Dextrose 50%) 25 ml Q30M PRN IV Hypoglycemia 01/22/19 11:30 02/21/19 11:29 Dextrose (Dextrose 50%) 50 ml Q30M PRN IV Hypoglycemia 01/22/19 11:30 02/21/19 11:29 Diphenhydramine HCl (Benadryl) 50 mg Q4H PRN ORAL Itching 01/25/19 18:00 02/08/19 17:59 01/27/19 20:13 Fat Emulsion Intravenous 216 ml/Amino Acids/ Electrolytes/ Dextrose 1,776 ml @ 74 mls/hr Q24H IV 01/25/19 20:00 02/24/19 19:59 01/27/19 20:28 Fluconazole/ Sodium Chloride 200 ml @ 200 mls/hr Q24H IV 01/25/19 17:00 02/01/19 16:59 01/28/19 17:04 Heparin Sodium/ Sodium Chloride (Heparin 1000 units/500ml Premix) 1,000 unit ONCE PRN IV PICC PLACEMENT 01/22/19 11:30 02/21/19 11:29 Insulin Aspart (NovoLOG) Q6HR SUBQ 01/23/19 00:00 02/22/19 00:00 01/28/19 18:20 Levothyroxine Sodium (Synthroid) 125 mcg DAILY@0630 ORAL 01/24/19 06:30 02/23/19 06:29 01/28/19 06:19 Lidocaine HCl (Xylocaine Jelly 2%) 1 applic Q3H PRN TOPIC BURNING AROUND MEATUS 01/14/19 17:15 02/13/19 17:14 01/17/19 12:50 Lisinopril (Prinivil) 40 mg DAILY ORAL 01/13/19 09:00 01/30/19 08:59 01/28/19 08:44 Metoprolol Succinate (Toprol XL) 50 mg DAILY@1200 ORAL 01/29/19 12:00 02/28/19 11:59 Mycophenolate Mofetil (Cellcept) 750 mg Q12HR@0000,1200 ORAL 01/29/19 00:00 02/28/19 00:00 Naloxone HCl (Narcan) 0.1 mg PRN IV Sedation scale 3 or 4 01/12/19 13:30 02/03/19 13:44 Ondansetron HCl (Zofran) 4 mg Q6H PRN IVP Nausea & Vomiting 01/25/19 16:00 02/02/19 15:59 01/28/19 10:14 Oxycodone/ Acetaminophen (Percocet 5-325) 1 tab Q4H PRN ORAL For Pain 01/27/19 08:15 02/03/19 08:14 01/27/19 14:01 Phytonadione (Vitamin K) 10 mg ONCE A WEEK SUBQ 01/22/19 12:00 02/21/19 11:59 01/22/19 13:29 Prochlorperazine (Compazine) 10 mg Q6H PRN IVP Nausea & Vomiting 01/22/19 15:30 02/21/19 15:17 01/27/19 20:13 Tacrolimus (Prograf) 1 mg DAILY ORAL 01/13/19 09:00 02/04/19 08:59 01/28/19 08:44 Tacrolimus (Prograf) 2 mg BEDTIME ORAL 01/25/19 21:00 01/29/19 20:59 01/27/19 20:14 Trazodone HCl (Desyrel) 25 mg HSPRN PRN ORAL INSOMNIA 01/12/19 20:00 02/03/19 19:59 01/26/19 21:36 Philly Shelby MD Jan 28, 2019 19:32
[2019-01-28 20:00] VITALS: BP 141/79
[2019-01-28] MEDS: Dyna-Hex 2% Top Sol 2oz TOPIC SCH (20:00)
[2019-01-28] MEDS: Fat Emulsion Iv 20% 216 ML in Tpn 1,560 ML IV SCH (20:01)
--- NOTE | 2019-01-28 20:30 | NUR ---
NURSE NOTES: Explain for rescheduled medication time d/t N/V. Pt verbalizes understanding. No nausea/vomiting noted at this time. Done PICC dressing change. PICC site is clear without any infection signs. Will continue to monitor.
[2019-01-28] MEDS: TraZODone HCl 25 mg tablet ORAL PRN (23:16)
[2019-01-29] VITALS: BP 143/77
[2019-01-29] MEDS: NovoLOG Insulin Flexpen SUBQ SCH ×5 (00:10→23:54)
--- NOTE | 2019-01-29 01:00 | NUR ---
NURSE NOTES: Pt states that she feels burning sensation on esophagus area and has 75ml light greenish with saliva vomiting. Request for Compazine for nausea sensation b/c Zofran is not effective. Confirm with CN and administer Compazine 10mg/2ml IVS prn as ordered. No soreness noted. G-tube is on continuous medium on wall suction and light greenish gastric juice drained with n/s 20ml flushing q 3hrs. Will continue to monitor.
--- NOTE | 2019-01-29 01:25 | NUR ---
NURSE NOTES: Pt feels comfortable after medication. Nausea sensation relieved. Will continue to monitor.
[2019-01-29] MEDS: TraZODone HCl 25 mg tablet ORAL PRN (02:18)
--- NOTE | 2019-01-29 02:20 | NUR ---
NURSE NOTES: Pt states that she is not able to fall asleep and request for second dose of sleeping pill. Provide medication as prn ordered. Nausea sense gets relieved. Will continue to monitor.
[2019-01-29 05:37] LABS: BASOPHILS % (AUTO) 0.7 % (0.0-2.0); EOSINOPHILS % (AUTO) 4.9 % (0.0-3.0); HEMATOCRIT 29.4 % (37.0-47.0); HEMOGLOBIN 9.7 G/DL (12.0-16.0); LYMPHOCYTES % (AUTO) 17.6 % (20.0-45.0); MEAN CORPUSCULAR VOLUME 89 FL (80-99); MONOCYTES % (AUTO) 7.8 % (1.0-10.0); PLATELET COUNT 357 K/UL (150-450); RED BLOOD COUNT 3.32 M/UL (4.20-5.40); RED CELL DISTRIBUTION WIDTH 14.1 % (11.6-14.8)
[2019-01-29 06:00] VITALS: BP 135/80
--- NOTE | 2019-01-29 06:00 | NUR ---
NURSE NOTES: After prn sleeping medication, pt slept. Denies pain or nausea sensation. No hiccups noted. Done I/S 10 times in bed. Encourage deep breathing. Will continue to monitor. 12hrs output Urine: 855ml Ileostomy: 645ml Gastrostomy:600ml-100ml(flush)=500ml Emesis: 75ml
[2019-01-29] MEDS: Levothyroxine 125mcg tab ORAL SCH (06:05)
[2019-01-29 06:20] LABS: ALANINE AMINOTRANSFERASE 23 U/L (12-78); ALBUMIN 2.1 G/DL (3.4-5.0); ALBUMIN/GLOBULIN RATIO 0.4 (1.0-2.7); ALKALINE PHOSPHATASE 248 U/L (46-116); ANION GAP 9 mmol/L (5-15); ASPARTATE AMINO TRANSFERASE 15 U/L (15-37); BILIRUBIN,TOTAL 0.3 MG/DL (0.2-1.0); BLOOD UREA NITROGEN 26 mg/dL (7-18); CALCIUM 9.7 MG/DL (8.5-10.1); CARBON DIOXIDE 27 MMOL/L (21-32); CHLORIDE 100 MMOL/L (98-107); CREATININE 1.2 MG/DL (0.55-1.30); PHOSPHORUS 3.4 MG/DL (2.5-4.9); POTASSIUM 3.2 MMOL/L (3.5-5.1); SODIUM 136 MMOL/L (136-145)
--- NOTE | 2019-01-29 07:30 | NUR ---
HAND-OFF: Report given to PATRICK Cruz. Round is done.
--- NOTE | 2019-01-29 07:30 | NUR ---
NURSE NOTES: Patient is in bed awake and able to verbalize needs. Stable. Denies pain or SOB. Patient encouraged to use call light for assistance, verbalized understanding. Patient has TPN running through PICC as ordered, other lumen TKO. PICC site clean, no redness noted. Surgical site clean and dry. Gtube connected to suction as ordered. Ileo bag in place, clean and dry. Will monitor I&O throughout shift. No c/o nausea or vomiting at this time. Patient in bed in locked and lowest position with call light within reach and overhead trapeze in place. Will continue to monitor.
[2019-01-29 08:00] VITALS: BP 141/82
[2019-01-29] MEDS ORDERED: NS w/KCl 40mEq 1,000 ML IV SCH (08:00)
[2019-01-29] MEDS: Lisinopril 20mg tab ORAL SCH (08:31)
--- NOTE | 2019-01-29 08:56 | General Progress Note ---
Progress Note Progress Note AVSS Had 3 small volume emesis episodes (total 225cc) with gastrostomy tosuction output 1270 which is decreased Abdomen somewhat distended. Ileostomy appliance intact now 3rd day same appliance Urine 2655 Gastrostomy 1220 + emesis 225 = 1445cc Ileostomy 1045 (took 850cc po with gastrostomy to suction) K 3.2 Mg 1.4 BUN up 26 Cr 1.2 Imp: duodenal compression from extrinsic compression shortened bowel syndrome malnutrition despite prolonged TPN Low K and Mg and increased BUN Plan: KUB XRay - may need f/u CT scan to reassess duodenum for improvement Increase K and Mg continue TPN, gastrostomy to suction Lars Sotomayor MD Jan 29, 2019 08:56
--- NOTE | 2019-01-29 10:56 | GI Progress Note ---
Assessment/Plan Problems: (1) Malfunctioning Kock Pouch (2) History of liver transplant ICD Codes: Z94.4 - Liver transplant status SNOMED: [id number] Status: unchanged Status Narrative Discussed with Dr. Dozier. 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 I agree with the above findings, impression and plan. (Patient seen earlier today. Signature stamp does not reflect patient encounter time.). - Max Dozier MD Subjective Subjective had episode of emesis last night NGT to suction Objective Last 24 Hour Vital Signs Date Time Temp Pulse Resp B/P (MAP) Pulse Ox O2 Delivery O2 Flow Rate FiO2 01/29/19 09:00 Room Air 01/29/19 08:31 141/82 01/29/19 08:30 106 141/82 01/29/19 08:00 98.9 106 20 141/82 (101) 97 01/29/19 06:00 98.2 96 18 135/80 (98) 96 01/29/19 00:00 98.9 91 18 143/77 (99) 93 01/28/19 21:00 Room Air 01/28/19 20:00 97.9 95 18 141/79 (99) 96 01/28/19 20:00 95 Room Air 21 01/28/19 18:20 90 133/73 01/28/19 16:00 99.2 90 17 133/73 (93) 94 01/28/19 12:00 98.7 93 18 143/78 (99) 96 Intake and Output 01/28/19 01/29/19 19:00 07:00 Intake Total 1704 ml 1138 ml Output Total 2400 ml 1930 ml Balance -696 ml -792 ml Intake Oral 650 ml 250 ml IV Total 1054 ml 888 ml Output Urine Total 1800 ml 855 ml Gastric Drainage Total 500 ml Emesis 150 ml 75 ml Other 450 ml 500 ml Laboratory Tests Test 01/29/19 04:50 White Blood Count 8.0 K/UL (4.8-10.8) Red Blood Count 3.32 M/UL (4.20-5.40) L Hemoglobin 9.7 G/DL (12.0-16.0) L Hematocrit 29.4 % (37.0-47.0) L Mean Corpuscular Volume 89 FL (80-99) Mean Corpuscular Hemoglobin 29.4 PG (27.0-31.0) Mean Corpuscular Hemoglobin Concent 33.1 G/DL (32.0-36.0) Red Cell Distribution Width 14.1 % (11.6-14.8) Platelet Count 357 K/UL (150-450) Mean Platelet Volume 5.6 FL (6.5-10.1) L Neutrophils (%) (Auto) 69.0 % (45.0-75.0) Lymphocytes (%) (Auto) 17.6 % (20.0-45.0) L Monocytes (%) (Auto) 7.8 % (1.0-10.0) Eosinophils (%) (Auto) 4.9 % (0.0-3.0) H Basophils (%) (Auto) 0.7 % (0.0-2.0) Sodium Level 136 MMOL/L (136-145) Potassium Level 3.2 MMOL/L (3.5-5.1) L Chloride Level 100 MMOL/L (98-107) Carbon Dioxide Level 27 MMOL/L (21-32) Anion Gap 9 mmol/L (5-15) Blood Urea Nitrogen 26 mg/dL (7-18) H Creatinine 1.2 MG/DL (0.55-1.30) Estimat Glomerular Filtration Rate 44.8 mL/min (>60) Glucose Level 176 MG/DL (74-106) H Calcium Level 9.7 MG/DL (8.5-10.1) Phosphorus Level 3.4 MG/DL (2.5-4.9) Magnesium Level 1.4 MG/DL (1.8-2.4) L Total Bilirubin 0.3 MG/DL (0.2-1.0) Aspartate Amino Transf (AST/SGOT) 15 U/L (15-37) Alanine Aminotransferase (ALT/SGPT) 23 U/L (12-78) Alkaline Phosphatase 248 U/L (46-116) H Total Protein 7.1 G/DL (6.4-8.2) Albumin 2.1 G/DL (3.4-5.0) L Globulin 5.0 g/dL Albumin/Globulin Ratio 0.4 (1.0-2.7) L Height (Feet): 5 Height (Inches): 3.00 Weight (Pounds): 134 General Appearance: no apparent distress Cardiovascular: normal rate Respiratory/Chest: normal breath sounds, no respiratory distress Abdominal Exam: normal bowel sounds, non tender, soft, other - NGT Extremities: non-tender Jeyson Luna NP Jan 29, 2019 10:56
[2019-01-29 12:00] VITALS: BP 118/83
[2019-01-29] MEDS: Metoprolol Succinate XL 50mg tab ORAL SCH (12:00)
--- NOTE | 2019-01-29 12:25 | NUR ---
CASE MANAGEMENT:REVIEW 01/29/19 SI: S/P RESECTION OF FAILED POUCH FOLLOWED BY MULTIPLE SURGERIES 98.9 106 20 141/82 97% ON RA H/H-9.7/29.4 K-3.2 MAG-1.4 IS: TPN/IL @ 74/HR IVF+KCL @50/HR IV VANCOMYCIN Q12 IV DIFLUCAN Q24 IV MAG SULFATE Q1HRS X4 CELLCEPT PO Q12 PROGRAF PO QHS : MED/SURG STATUS 3 EAST PLAN: CLEAR LIQUIDS ONLY
[2019-01-29] MEDS: Mycophenolate 250mg cap ORAL SCH ×2 (12:28→23:39)
[2019-01-29] MEDS: Phytonadione 10 mg/mL 1ml amp SUBQ SCH (12:43)
[2019-01-29] MEDS: oxyCODONE HCL/Acetaminophen 5/325mg ORAL PRN (15:26)
[2019-01-29 16:00] VITALS: BP 158/98
--- NOTE | 2019-01-29 16:11 | NUR ---
*-*INSURANCE *-* UPDATED CLINICALS AND REVIEW HAVE BEEN FAXED TO: [facility]#[phone]
--- NOTE | 2019-01-29 17:12 | Cardiology Progress Note ---
Assessment/Plan Status Narrative 1. Malfunctioning Kock pouch continent ileostomy. 2. History of ulcerative colitis. 3. History of primary sclerosing cholangitis. 4. Status post multiple abdominal operations. 4.1. Appendectomy in 1964. 4.2. Proctocolectomy and Kock pouch in 1978. 4.3. Total abdominal hysterectomy and bilateral salpingo-oophorectomy 1983 4.4. Cholecystectomy in 1985. 4.5. Orthotopic liver transplantation in 1999. 4.6. Revision of Kock pouch and repair of fistula in 2010. HTN- New onset- Controlled on Norvasc /Lisinopril and Metoprolol Tachycardia- probably due to volume depletion Renal insuff- Most probably due volume depletion ( High GT output), - Creat 1.3 Volume depletion- high GT output- Esophagitis Duodenal narrowing Vomiting -improving Low Mg, K Assessment/Plan Metoprolol 25 mg QD Zestril 40 mg QD. Norvasc 5 mg BID Monitor BP TPN and Peripheral IV - taper as per Dr. Sotomayor Diet as per DR. Sotomayor Increase IV fluids to 75 cc/h Discussed with RN. Subjective Cardiovascular: Reports: no symptoms Respiratory: Reports: no symptoms Gastrointestinal/Abdominal: Denies: abdominal pain Genitourinary: Reports: no symptoms Subjective Still NPO vomiting x1 today Having out put from ileostomy Has been out of bed, ambulated. Pain controlled Creat 1.3 High output from GT- now being plugged Q2h S/P EGD today- showed gastriris/esophagitis with mid duodenal narrowing 01/21/19- had Gatrografin UGI study, increased ileostomy output. No vomiting today. 01/22/10- has tolerated clear liquids, had vomiting x1 this morning. 01/23- Started on solid food 01/24- Vomited after breakfast, and lunch- TPN @74 cc/h, IV @ 70 cc/h 01/26- No vomiting today, tolerated solids, still on TPN 01/29 Small amount of vomiting earlier, has tolerated her lunch Objective Last 24 Hour Vital Signs Date Time Temp Pulse Resp B/P (MAP) Pulse Ox O2 Delivery O2 Flow Rate FiO2 01/29/19 12:00 98.5 104 21 118/83 (95) 97 01/29/19 09:00 Room Air 01/29/19 08:31 141/82 01/29/19 08:30 106 141/82 01/29/19 08:00 98.9 106 20 141/82 (101) 97 01/29/19 06:00 98.2 96 18 135/80 (98) 96 01/29/19 00:00 98.9 91 18 143/77 (99) 93 01/28/19 21:00 Room Air 01/28/19 20:00 97.9 95 18 141/79 (99) 96 01/28/19 20:00 95 Room Air 21 01/28/19 18:20 90 133/73 Cardiovascular: no gallop/murmur, tachycardia Respiratory/Chest: lungs clear, normal breath sounds Abdomen: normal bowel sounds, non tender Extremities: non-tender, no calf tenderness, no swelling Intake and Output 01/28/19 01/29/19 19:00 07:00 Intake Total 1704 ml 1138 ml Output Total 2400 ml 1930 ml Balance -696 ml -792 ml Intake Oral 650 ml 250 ml IV Total 1054 ml 888 ml Output Urine Total 1800 ml 855 ml Gastric Drainage Total 500 ml Emesis 150 ml 75 ml Other 450 ml 500 ml Laboratory Tests Test 01/29/19 04:50 White Blood Count 8.0 K/UL (4.8-10.8) Red Blood Count 3.32 M/UL (4.20-5.40) L Hemoglobin 9.7 G/DL (12.0-16.0) L Hematocrit 29.4 % (37.0-47.0) L Mean Corpuscular Volume 89 FL (80-99) Mean Corpuscular Hemoglobin 29.4 PG (27.0-31.0) Mean Corpuscular Hemoglobin Concent 33.1 G/DL (32.0-36.0) Red Cell Distribution Width 14.1 % (11.6-14.8) Platelet Count 357 K/UL (150-450) Mean Platelet Volume 5.6 FL (6.5-10.1) L Neutrophils (%) (Auto) 69.0 % (45.0-75.0) Lymphocytes (%) (Auto) 17.6 % (20.0-45.0) L Monocytes (%) (Auto) 7.8 % (1.0-10.0) Eosinophils (%) (Auto) 4.9 % (0.0-3.0) H Basophils (%) (Auto) 0.7 % (0.0-2.0) Sodium Level 136 MMOL/L (136-145) Potassium Level 3.2 MMOL/L (3.5-5.1) L Chloride Level 100 MMOL/L (98-107) Carbon Dioxide Level 27 MMOL/L (21-32) Anion Gap 9 mmol/L (5-15) Blood Urea Nitrogen 26 mg/dL (7-18) H Creatinine 1.2 MG/DL (0.55-1.30) Estimat Glomerular Filtration Rate 44.8 mL/min (>60) Glucose Level 176 MG/DL (74-106) H Calcium Level 9.7 MG/DL (8.5-10.1) Phosphorus Level 3.4 MG/DL (2.5-4.9) Magnesium Level 1.4 MG/DL (1.8-2.4) L Total Bilirubin 0.3 MG/DL (0.2-1.0) Aspartate Amino Transf (AST/SGOT) 15 U/L (15-37) Alanine Aminotransferase (ALT/SGPT) 23 U/L (12-78) Alkaline Phosphatase 248 U/L (46-116) H Total Protein 7.1 G/DL (6.4-8.2) Albumin 2.1 G/DL (3.4-5.0) L Globulin 5.0 g/dL Albumin/Globulin Ratio 0.4 (1.0-2.7) L Microbiology Date/Time Source Procedure Growth Status 01/28/19 09:10 Stool Clostridium difficile Toxin Assay - Final Complete Micha Ziegler MD Jan 29, 2019 17:12
[2019-01-29] MEDS: NS w/KCl 40mEq 1,000 ML IV SCH (17:16)
--- NOTE | 2019-01-29 19:00 | NUR ---
NURSE NOTES: Patient tolerated PO approved food and clear liquids well throughout shift.
--- NOTE | 2019-01-29 19:00 | NUR ---
NURSE NOTES: No vomiting during shift. I&O recorded- true gt: 285cc, ileo:525, UO:1250. No c/o nausea during shift.
--- NOTE | 2019-01-29 19:47 | NUR ---
HAND-OFF: Report given to Asad NGUYEN. Patient is stable.
[2019-01-29 19:57] VITALS: BP 137/73
--- NOTE | 2019-01-29 20:03 | NUR ---
NURSE NOTES: Report given by PATRICK Cruz. Patient is resting in bed, no c/o of nausea, pain, or SOB on room air. G-tube is draining to continuous moderate suction opaque orange liquid. Ileostomy bag is draining orange clear liquid and light brown stool. TPN, fluids and running to MARILY PICC line. Dressing and site is c/d/i. Bedside commode within reach. Bed in low and locked position with call light within reach. Will continue to monitor.
[2019-01-29] MEDS: Dyna-Hex 2% Top Sol 2oz TOPIC SCH (20:21)
[2019-01-29] MEDS: Fat Emulsion Iv 20% 216 ML in Tpn 1,560 ML IV SCH (20:22)
[2019-01-30] VITALS: BP 141/72
[2019-01-30] MEDS: NS w/KCl 40mEq 1,000 ML IV SCH ×2 (01:38→15:30)
[2019-01-30 04:00] VITALS: BP 149/86
[2019-01-30 06:05] LABS: BASOPHILS % (AUTO) 0.7 % (0.0-2.0); HEMATOCRIT 30.1 % (37.0-47.0); HEMOGLOBIN 9.9 G/DL (12.0-16.0); LYMPHOCYTES % (AUTO) 15.4 % (20.0-45.0); MEAN CORPUSCULAR VOLUME 89 FL (80-99); MONOCYTES % (AUTO) 6.6 % (1.0-10.0); NEUTROPHILS % (AUTO) 73.3 % (45.0-75.0); PLATELET COUNT 396 K/UL (150-450); RED BLOOD COUNT 3.38 M/UL (4.20-5.40); RED CELL DISTRIBUTION WIDTH 14.4 % (11.6-14.8); WHITE BLOOD COUNT 7.4 K/UL (4.8-10.8)
[2019-01-30] MEDS: NovoLOG Insulin Flexpen SUBQ SCH ×3 (06:08→18:34)
[2019-01-30] MEDS: Levothyroxine 125mcg tab ORAL SCH (06:10)
[2019-01-30 06:41] LABS: ALANINE AMINOTRANSFERASE 25 U/L (12-78); ALBUMIN 2.1 G/DL (3.4-5.0); ALBUMIN/GLOBULIN RATIO 0.4 (1.0-2.7); ALKALINE PHOSPHATASE 261 U/L (46-116); ANION GAP 8 mmol/L (5-15); ASPARTATE AMINO TRANSFERASE 21 U/L (15-37); BILIRUBIN,TOTAL 0.2 MG/DL (0.2-1.0); CARBON DIOXIDE 28 MMOL/L (21-32); CHLORIDE 102 MMOL/L (98-107); CREATININE 1.3 MG/DL (0.55-1.30); POTASSIUM 3.7 MMOL/L (3.5-5.1); SODIUM 138 MMOL/L (136-145)
[2019-01-30 06:48] LABS: BLOOD UREA NITROGEN 28 mg/dL (7-18)
--- NOTE | 2019-01-30 07:30 | NUR ---
NURSE NOTES: Patient is in bed awake and able to verbalize needs. Stable. Denies pain or SOB. Patient c/o nausea and asks for compazine. Patient connected to suction as ordered. Ileo draining to bag as ordered. Surgical site clean, dry, and open to air. PICC line running TPN and IVF as ordered. Patient encouraged to use call light for assistance, verbalized understanding.
--- NOTE | 2019-01-30 07:49 | NUR ---
HAND-OFF: Report given to PATRICK Cruz. Patient in stable condition.
[2019-01-30 08:00] VITALS: BP 133/87
[2019-01-30] MEDS ORDERED: Omnipaque-300 100ml vial INJ PRN (08:00)
[2019-01-30] MEDS: Lisinopril 20mg tab ORAL SCH (09:06)
--- NOTE | 2019-01-30 09:30 | NUR ---
NURSE NOTES: Administered contrast via gtube as ordered.
[2019-01-30] MEDS ORDERED: Iron Sucrose 200 MG in NS 110 ML IV SCH (10:00)
--- NOTE | 2019-01-30 10:17 | NUR ---
NURSE NOTES: Held Magnesium IV and started venofer IV as recommended by pharmacist Naa to monitor patient while receiving venofer before patient gets taken down to CT. Will restart magnesium after venofer is complete.
--- NOTE | 2019-01-30 11:40 | NUR ---
PT NOTE Attempted to see patient for PT treatment. Patient off unit for CT scan. Nancy NGUYEN notified.
[2019-01-30 12:00] VITALS: BP 155/86
[2019-01-30] MEDS: Mycophenolate 250mg cap ORAL SCH (12:27)
[2019-01-30] MEDS: Metoprolol Succinate XL 50mg tab ORAL SCH (12:28)
[2019-01-30] MEDS: oxyCODONE HCL/Acetaminophen 5/325mg ORAL PRN (12:31)
--- NOTE | 2019-01-30 12:33 | Diagnostic Imaging Report ---
Indication: Abdominal pain Technique: Continuous helical transaxial imaging of the abdomen and pelvis was obtained from the lung bases to the pubic symphysis during intravenous contrast administration. Coronal 2-D reformats were also obtained. Study obtained in a Siemens sensation [address] Automatic Exposure Control was utilized. Total Dose length Product (DLP): 916.[address] Dose Index Volume (CTDIvol): 17.2 mGy Comparison: 01/18/2019 Findings: There is mild atelectasis at the lung bases versus scarring with linear densities noted. Mild bronchiectasis demonstrated. Small hiatal hernia is present. Gastrostomy noted. Aorta is moderately calcified. Cholecystectomy clips demonstrated. Patient is status post recent abdominal surgery with skin reggie still present and vertically oriented the ventral abdominal wall scar. There is a right lower quadrant ileostomy present. Total colectomy is noted. There are areas of groundglass and linear reticular densities soft tissue stranding of the anterior mesenteric fat presumably postsurgical in nature. There is no evidence of mechanical small bowel obstruction with small bowel loops that appear well opacified with contrast material extending into the right lower quadrant ileostomy. Some of the more proximal small bowel loops are mildly distended with suggestion of mild mucosal thickening which may be related to recent surgery, i.e. ileus. There is a small well-circumscribed ovoid fluid collection in the right lower quadrant measuring 2.6 x 2.2 cm consistent with a postoperative fluid collection such as a seroma. Follow-up is suggested. No A to be certain that the fluid is not infected. The urinary bladder is noted and unremarkable. There has been interval removal of the surgical drain previously noted in the pelvis. IMPRESSION: Mild postoperative ileus suspected. No evidence of bowel obstruction with contrast demonstrated throughout the small bowel entering the ileostomy. Postsurgical changes associated with relatively recent abdominal surgery including total colectomy and right lower quadrant ileostomy. Note is made of a 2.6 x 2.2 cm well-circumscribed ovoid fluid collection in the right lower quadrant. This is consistent with a postoperative fluid collection such as a seroma. Follow-up and clinical correlation recommended. In general, most of the fluid pockets have resolved since the last exam as is the usual case in the days following surgery. Gastrostomy in good position Status post cholecystectomy Atherosclerotic vascular disease Mild basal atelectasis The CT scanner at [facility] is accredited by the [employer] and the scans are performed using dose optimization techniques as appropriate to a performed exam including Automatic Exposure control.
--- NOTE | 2019-01-30 12:37 | NUR ---
Social Service Note Patient continues to require medical intervention. CM is assessing for transfer/dc planning to an appropriate level of care. Will continue to monitor and be available as needed.
--- NOTE | 2019-01-30 12:37 | GI Progress Note ---
Assessment/Plan Problems: (1) Malfunctioning Kock Pouch (2) History of liver transplant ICD Codes: Z94.4 - Liver transplant status SNOMED: [id number] Status: unchanged Status Narrative Discussed with Dr. Dozier. 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 No evidence of bowel obstruction with contrast demonstrated throughout the small bowel entering the ileostomy. Recommendations - Follow labs and replace lytes PRN - Abx per ID - monitor Prograf level, watch for Diflucan drug interaction - Continue TPN, maintain NPO + IVF - Elevate HOB - Wound care The patient was seen and examined at bedside and all new and available data was reviewed in the patients chart. I agree with the above findings, impression and plan. (Patient seen earlier today. Signature stamp does not reflect patient encounter time.). - Max Dozier MD Subjective Subjective had episode of emesis last night again GT to suction Objective Last 24 Hour Vital Signs Date Time Temp Pulse Resp B/P (MAP) Pulse Ox O2 Delivery O2 Flow Rate FiO2 01/30/19 09:06 111/87 01/30/19 09:06 111 133/87 01/30/19 09:00 Room Air 01/30/19 08:00 98.3 111 18 133/87 (102) 98 01/30/19 04:00 98.7 104 18 149/86 (107) 96 01/30/19 00:00 98.4 106 18 141/72 (95) 94 01/29/19 21:00 Room Air 01/29/19 19:57 98.5 103 18 137/73 (94) 96 01/29/19 18:34 103 138/71 01/29/19 16:00 98.1 102 21 158/98 (118) 97 Intake and Output 01/29/19 01/30/19 18:59 06:59 Intake Total 2542 ml 2045 ml Output Total 2060 ml 3050 ml Balance 482 ml -1005 ml Intake Oral 1080 ml 480 ml IV Total 1462 ml 1565 ml Output Urine Total 1250 ml 1500 ml Gastric Drainage Total 285 ml 820 ml Emesis 500 ml Other 525 ml 230 ml # Voids 4 Laboratory Tests Test 01/30/19 05:00 White Blood Count 7.4 K/UL (4.8-10.8) Red Blood Count 3.38 M/UL (4.20-5.40) L Hemoglobin 9.9 G/DL (12.0-16.0) L Hematocrit 30.1 % (37.0-47.0) L Mean Corpuscular Volume 89 FL (80-99) Mean Corpuscular Hemoglobin 29.3 PG (27.0-31.0) Mean Corpuscular Hemoglobin Concent 33.0 G/DL (32.0-36.0) Red Cell Distribution Width 14.4 % (11.6-14.8) Platelet Count 396 K/UL (150-450) Mean Platelet Volume 5.7 FL (6.5-10.1) L Neutrophils (%) (Auto) 73.3 % (45.0-75.0) Lymphocytes (%) (Auto) 15.4 % (20.0-45.0) L Monocytes (%) (Auto) 6.6 % (1.0-10.0) Eosinophils (%) (Auto) 4.0 % (0.0-3.0) H Basophils (%) (Auto) 0.7 % (0.0-2.0) Sodium Level 138 MMOL/L (136-145) Potassium Level 3.7 MMOL/L (3.5-5.1) Chloride Level 102 MMOL/L (98-107) Carbon Dioxide Level 28 MMOL/L (21-32) Anion Gap 8 mmol/L (5-15) Blood Urea Nitrogen 28 mg/dL (7-18) H Creatinine 1.3 MG/DL (0.55-1.30) Estimat Glomerular Filtration Rate 40.9 mL/min (>60) Glucose Level 182 MG/DL (74-106) H Calcium Level 10.0 MG/DL (8.5-10.1) Magnesium Level 1.9 MG/DL (1.8-2.4) Total Bilirubin 0.2 MG/DL (0.2-1.0) Aspartate Amino Transf (AST/SGOT) 21 U/L (15-37) Alanine Aminotransferase (ALT/SGPT) 25 U/L (12-78) Alkaline Phosphatase 261 U/L (46-116) H Total Protein 7.0 G/DL (6.4-8.2) Albumin 2.1 G/DL (3.4-5.0) L Globulin 4.9 g/dL Albumin/Globulin Ratio 0.4 (1.0-2.7) L Height (Feet): 5 Height (Inches): 3.00 Weight (Pounds): 134 General Appearance: WD/WN, no apparent distress, alert Cardiovascular: normal rate Respiratory/Chest: normal breath sounds, no respiratory distress Abdominal Exam: normal bowel sounds, non tender, soft, other - ileostomy Extremities: normal range of motion, non-tender Jeyson Luna NP Jan 30, 2019 12:37
--- NOTE | 2019-01-30 12:46 | Diagnostic Imaging Report ---
Indication: Abdominal pain and distention Comparison: 01/04/2019 Single view of the abdomen obtained Findings: Bowel gas pattern is nonspecific. No mass, ectopic calcifications, or abnormal gas collections are identified. Multiple surgical clips are present. There is a gastrostomy catheter projected over the left-sided abdomen. Skin reggie still present in the ventral abdominal wall. Right lower quadrant ostomy noted. The bones are unremarkable. Impression: No acute findings. No significant change
--- NOTE | 2019-01-30 13:00 | NUR ---
CASE MANAGEMENT:REVIEW 01/30/19 SI: S/P RESECTION OF FAILED POUCH FOLLOWED BY MULTIPLE SURGERIES 98.3 111 18 155/83 98% ON RA H/H-9.9/30.1 BUN=28 IS: TPN/IL @ 74/HR IVF+KCL @75/HR IV MAG SULFATE Q1HRS X2 BAGS IV DIFLUCAN Q24 IV MAG SULFATE Q1HRS X4 CELLCEPT PO Q12 PROGRAF PO QHS : MED/SURG STATUS 3 EAST PLAN: CT ABD/PELVIS
--- NOTE | 2019-01-30 13:35 | NUR ---
RD ASSESSMENT & RECOMMENDATIONS SEE CARE ACTIVITY FOR COMPLETE ASSESSMENT DAILY ESTIMATED NEEDS: Needs based on Surgery 59.8kg 25-30 kcals/kg 2002-4593 total kcals 1-2 g protein/kg 60-120 g total protein 25-30 mL/kg 1050-0966 total fluid mLs NUTRITION DIAGNOSIS: Altered GI fxn r/t h/o UC and malfunctioning kock pouch as evidenced by pt is s/p kock pouch takedown w/ creation of Yajaira ileo, now s/p ex lap, segmental small bowel resections and relocation of ileostomy, TPN at goal, on clears, w/ continued episodes of emesis. CURRENT DIET:CLD PO DIET RECOMMENDATIONS: Diet per MD PARENTERAL NUTRITION RECOMMENDATIONS: D/AA Rate: 65 IL Rate: 9 Total Rate: 74 Volume: 1776 % Dextrose: 18 % AA: 5.5 Energy (kcals/kg): 1730 Protein (g/kg protein): 86 Nonprotein KCALS: 1386 GIR (mg CHO/kg/min): 3.3 % Fat KCALS: 25 NCP: N Ratio: 101:1 TPN Comment: - D18% + AA 5.5% @65ml/hr + 20% IL @9ml/hr - TPN at goal meets 100% est kcal/prot needs (29 kcal/kg and 1.4g prot/kg) ADDITIONAL RECOMMENDATIONS: 1) Obtain a standing weight as pt is able to ambulate in halls 2) Monitor CLD status -> monitor for ability to resume TPN / now restarted 3) Monitor lytes, replete as needed Monitor LFT's, BG, Lytes w/ TPN . .
--- NOTE | 2019-01-30 14:05 | General Progress Note ---
Progress Note Progress Note AVSS but mild tachycardia to 106 Continued intermittent emesis Abdomen soft Urine 2750 Gastrostomy 1245+emesis 500 = 1745cc Ileostomy 755 K up 3.7 BUN and Cr up 28/1.[address] Follow-up CT scan shows persistent mild narrowing of 3rd portion of duodenum Imp. Partial duodenal obstruction Plan; Will discuss with GI re follow-up EGD and possible dilation continue TPN and gastrostomy to suction + full liquid diet as tolerated Lars Huertas MD Jan 30, 2019 14:05
--- NOTE | 2019-01-30 15:10 | Cardiology Progress Note ---
Assessment/Plan Status Narrative 1. Malfunctioning Kock pouch continent ileostomy. 2. History of ulcerative colitis. 3. History of primary sclerosing cholangitis. 4. Status post multiple abdominal operations. 4.1. Appendectomy in 1964. 4.2. Proctocolectomy and Kock pouch in 1978. 4.3. Total abdominal hysterectomy and bilateral salpingo-oophorectomy 1983 4.4. Cholecystectomy in 1985. 4.5. Orthotopic liver transplantation in 1999. 4.6. Revision of Kock pouch and repair of fistula in 2010. HTN- New onset- Controlled on Norvasc /Lisinopril and Metoprolol Tachycardia- probably due to volume depletion Renal insuff- Most probably due volume depletion ( High GT output), - Creat 1.3 Volume depletion- high GT output- Esophagitis Duodenal narrowing Vomiting - Assessment/Plan Metoprolol 25 mg QD Zestril 40 mg QD. Norvasc 5 mg BID Monitor BP TPN and Peripheral IV - taper as per Dr. Sotomayor Diet as per DR. Sotomayor Increase IV fluids to 100 cc/h Bolus of NS x1 , re check HR Will try to keep I/O's positive today Discussed with RN. Subjective Cardiovascular: Reports: no symptoms Respiratory: Reports: no symptoms Gastrointestinal/Abdominal: Reports: vomiting - havng high GT oiutput Genitourinary: Reports: no symptoms Subjective Still NPO vomiting x1 today Having out put from ileostomy Has been out of bed, ambulated. Pain controlled Creat 1.3 High output from GT- now being plugged Q2h S/P EGD today- showed gastriris/esophagitis with mid duodenal narrowing 01/21/19- had Gatrografin UGI study, increased ileostomy output. No vomiting today. 01/22/10- has tolerated clear liquids, had vomiting x1 this morning. 01/23- Started on solid food 01/24- Vomited after breakfast, and lunch- TPN @74 cc/h, IV @ 70 cc/h 01/26- No vomiting today, tolerated solids, still on TPN 01/29 Small amount of vomiting earlier, has tolerated her lunch 01/30- Had CT done- showing persistent duodenal narrowing, Has had vmiting, high GT utput. IOs negative, Creat 1.3, HR 117 Objective Last 24 Hour Vital Signs Date Time Temp Pulse Resp B/P (MAP) Pulse Ox O2 Delivery O2 Flow Rate FiO2 01/30/19 12:28 117 155/83 01/30/19 09:06 111/87 01/30/19 09:06 111 133/87 01/30/19 09:00 Room Air 01/30/19 08:00 98.3 111 18 133/87 (102) 98 01/30/19 04:00 98.7 104 18 149/86 (107) 96 01/30/19 00:00 98.4 106 18 141/72 (95) 94 01/29/19 21:00 Room Air 01/29/19 19:57 98.5 103 18 137/73 (94) 96 01/29/19 18:34 103 138/71 01/29/19 16:00 98.1 102 21 158/98 (118) 97 Cardiovascular: regular rhythm, no gallop/murmur, tachycardia Respiratory/Chest: lungs clear Abdomen: normal bowel sounds, non tender, soft Extremities: non-tender, normal inspection, no calf tenderness, no swelling Intake and Output 01/29/19 01/30/19 18:59 06:59 Intake Total 2542 ml 2045 ml Output Total 2060 ml 3050 ml Balance 482 ml -1005 ml Intake Oral 1080 ml 480 ml IV Total 1462 ml 1565 ml Output Urine Total 1250 ml 1500 ml Gastric Drainage Total 285 ml 820 ml Emesis 500 ml Other 525 ml 230 ml # Voids 4 Laboratory Tests Test 01/30/19 05:00 White Blood Count 7.4 K/UL (4.8-10.8) Red Blood Count 3.38 M/UL (4.20-5.40) L Hemoglobin 9.9 G/DL (12.0-16.0) L Hematocrit 30.1 % (37.0-47.0) L Mean Corpuscular Volume 89 FL (80-99) Mean Corpuscular Hemoglobin 29.3 PG (27.0-31.0) Mean Corpuscular Hemoglobin Concent 33.0 G/DL (32.0-36.0) Red Cell Distribution Width 14.4 % (11.6-14.8) Platelet Count 396 K/UL (150-450) Mean Platelet Volume 5.7 FL (6.5-10.1) L Neutrophils (%) (Auto) 73.3 % (45.0-75.0) Lymphocytes (%) (Auto) 15.4 % (20.0-45.0) L Monocytes (%) (Auto) 6.6 % (1.0-10.0) Eosinophils (%) (Auto) 4.0 % (0.0-3.0) H Basophils (%) (Auto) 0.7 % (0.0-2.0) Sodium Level 138 MMOL/L (136-145) Potassium Level 3.7 MMOL/L (3.5-5.1) Chloride Level 102 MMOL/L (98-107) Carbon Dioxide Level 28 MMOL/L (21-32) Anion Gap 8 mmol/L (5-15) Blood Urea Nitrogen 28 mg/dL (7-18) H Creatinine 1.3 MG/DL (0.55-1.30) Estimat Glomerular Filtration Rate 40.9 mL/min (>60) Glucose Level 182 MG/DL (74-106) H Calcium Level 10.0 MG/DL (8.5-10.1) Magnesium Level 1.9 MG/DL (1.8-2.4) Total Bilirubin 0.2 MG/DL (0.2-1.0) Aspartate Amino Transf (AST/SGOT) 21 U/L (15-37) Alanine Aminotransferase (ALT/SGPT) 25 U/L (12-78) Alkaline Phosphatase 261 U/L (46-116) H Total Protein 7.0 G/DL (6.4-8.2) Albumin 2.1 G/DL (3.4-5.0) L Globulin 4.9 g/dL Albumin/Globulin Ratio 0.4 (1.0-2.7) L Microbiology Date/Time Source Procedure Growth Status 01/28/19 09:10 Stool Clostridium difficile Toxin Assay - Final Complete Micha Ziegler MD Jan 30, 2019 15:10
[2019-01-30 16:00] VITALS: BP 141/80
--- NOTE | 2019-01-30 16:01 | Infectious Diseases Prog Note ---
Assessment/Plan Assessment/Plan ASSESSMENT AND PLAN: 1. hx of leukocytosis, fevers, ? 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 infiltrated iv, ? cellulitis right arm - now resolved n/v persists, partial duodenal obstruction - fluconazole based on jeff species is preferred drug especially in view of micafungin treatment prior to becoming fungemic - day # 10 anti-fungal, plan on at least 2 weeks treatment, monitor prograf levels - plan on dilatation/EGD per GI - f/u on surveillance blood cultures - neg to date - d/w GI, RN and patient - monitor labs, leukocytosis and fevers resolved - on 2D echo - no vegetations mentioned per report 2. 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 3. Liver transplantation. 4. Sclerosing cholangitis. 5. Ulcerative colitis. 6. The patient is anemic. 7. History of cholecystectomy, appendectomy, hysterectomy, and proctocolectomy. 8. History of multiple abdominal operations. 9. Allergies to codeine, hydromorphone, metoclopramide, morphine, and sulfa. 10. Family doctor is Noncontributory. 11. Social history is negative. 12. MAR was noted. 13. Case discussed with RN. 14. Case discussed with the patient. 15. Continue treatment per Dr. Sotomayor and consultants. Subjective Constitutional: Denies: fever HEENT: Denies: congestion Respiratory: Denies: shortness of breath Breasts: Denies: discharge Cardiovascular: Denies: chest pain Gastrointestinal/Abdominal: Reports: nausea, vomiting, diarrhea, other - no abdominal pain Neurologic: Denies: headache Skin: Denies: rash Hematologic: Denies: bleeding Musculoskeletal: Denies: pain Allergies: Coded Allergies: CODEINE (Verified Allergy, Severe, 12/17/18) Face contractions HYDROMORPHONE (Verified Allergy, Severe, Itching, 12/17/18) Itching whole body METOCLOPRAMIDE (Verified Allergy, Severe, 12/17/18) Face contractions MORPHINE (Verified Allergy, Severe, Shortness of Breath, 12/17/18) SULFA (SULFONAMIDE ANTIBIOTICS) (Verified Allergy, Severe, 12/17/18) Face contractions Objective Vital Signs Last 24 Hour Vital Signs Date Time Temp Pulse Resp B/P (MAP) Pulse Ox O2 Delivery O2 Flow Rate FiO2 01/30/19 12:28 117 155/83 01/30/19 12:00 98.2 107 18 155/86 (109) 96 01/30/19 09:06 111/87 01/30/19 09:06 111 133/87 01/30/19 09:00 Room Air 01/30/19 08:00 98.3 111 18 133/87 (102) 98 01/30/19 04:00 98.7 104 18 149/86 (107) 96 01/30/19 00:00 98.4 106 18 141/72 (95) 94 01/29/19 21:00 Room Air 01/29/19 19:57 98.5 103 18 137/73 (94) 96 01/29/19 18:34 103 138/71 01/29/19 16:00 98.1 102 21 158/98 (118) 97 Height (Feet): 5 Height (Inches): 3.00 Weight (Pounds): 134 General Appearance: no acute distress HEENT: normocephalic, atraumatic, anicteric, mucous membranes moist Respiratory/Chest: lungs clear, normal breath sounds, no respiratory distress, no accessory muscle use Cardiovascular: normal rate, regular rhythm, no gallop/murmur, no JVD Abdomen: normal bowel sounds, soft, non tender, no organomegaly, non distended Genitourinary: other - no morales Extremities: no cyanosis Skin: no rash Neurologic/Psychiatric: 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 Evidence of total colectomy. Right lower abdominal wall ostomy is new since prior study. Previously seen left lower quadrant ostomy has been taken down. 2. Prominent proximal duodenum narrowing between the SMA and aorta. Query SMA syndrome. 3. Left lower abdominal wall percutaneous drainage catheter with tip in the right anterior lower abdomen. There is 3.6 x 6 cm fluid collection in the anterior lower pelvis and another loculated 2.8 x 3 cm collection to the right, likely connecting. There are surgical clips associated with the fluid collections and this may be unopacified patulous small bowel, limited as the oral contrast has not reached the distal small bowel loops. Consider delayed imaging. 4. Smaller loculated fluid with small air bubbles in the pelvis, likely due to recent postop changes, cannot exclude fistula or leak. 5. Anterior abdominal wall vertical incision with small fluid along the incision in the subcutaneous soft tissue. 6. Percutaneous gastrostomy tube. 7. Tiny bilateral nonobstructive renal stones. No ureteral stone or renal obstruction. CT abdomen and pelvis - 12/26/18 - Status post recent abdominal surgery with creation of a left lower quadrant Yajaira ileostomy. Good bowel and bag opacification with no evidence of bowel obstruction. Unusual, markedly distended unopacified loop of bowel in the pelvis. Although unopacified, this does not appear to be an abscess as there is a wall and other characteristics more in keeping with bowel. Would consider a large diverticulum or possibly remnant of the previous Kock pouch or part of the small bowel leading to the old pouch as those segments are sometimes quite distended. Status post liver transplant. Status post cholecystectomy. Mild basal atelectasis. Chest x-ray - no pna, report noted CT abdomen/pelvis - 12/30/18 - Impression: Postsurgical changes, as described Unusual tubular structure filled mostly with gas but also some fluid communicating with the small bowel at the site of a right lower quadrant enteroenterostomy. Uncertain as to whether this represents an unusual large diverticulum, a true extraluminal gas collection, or a portion of an old continent ileostomy pouch. This is also previously described Dilated proximal small bowel proximal to the enteroenterostomy with slow forward propulsion of contents. Partial small bowel obstruction not completely excludable although unlikely given evidence of forward propulsion of contrast and filling of the ileostomy on prior 12/26/2018 exam; findings most likely functional in nature. Correlate with clinical findings Small anterior pelvic and deep pelvic fluid pockets, most likely represent retained postoperative fluid collections. Abscess as etiology of any of these not completely excludable; correlation with clinical findings recommended Postsurgical changes of the liver status post transplantation Punctate nonobstructing bilateral intrarenal calculi Bilateral basilar pulmonary parenchymal atelectasis and/or scarring Chest x-ray - 01/07/19 - Images previously reviewed in person with Dr. Sotomayor Interval placement of a right transjugular central line, catheter tip in the region of the high right atrium. Left arm PICC line remains in place with the catheter tip at the cavoatrial junction. No evidence of pneumothorax. No definite focal airspace consolidation or pleural effusion. Surgical clips noted projecting over the upper abdomen. Microbiology Date/Time Source Procedure Growth Status 01/21/19 04:40 Blood Blood Culture - Final NO GROWTH AFTER 5 DAYS Complete 01/28/19 09:10 Stool Clostridium difficile Toxin Assay - Final Complete 01/17/19 19:14 Indwelling Cath Urine Culture - Final Jeff Parapsilosis Complete 01/06/19 22:30 Abdominal Fluid Gram Stain - Final Complete 01/06/19 22:30 Body Fluid Culture - Final Jeff Albicans Complete Microbiology Date/Time Source Procedure Growth Status 01/28/19 09:10 Stool Clostridium difficile Toxin Assay - Final Complete Laboratory Tests Test 01/30/19 05:00 White Blood Count 7.4 K/UL (4.8-10.8) Red Blood Count 3.38 M/UL (4.20-5.40) L Hemoglobin 9.9 G/DL (12.0-16.0) L Hematocrit 30.1 % (37.0-47.0) L Mean Corpuscular Volume 89 FL (80-99) Mean Corpuscular Hemoglobin 29.3 PG (27.0-31.0) Mean Corpuscular Hemoglobin Concent 33.0 G/DL (32.0-36.0) Red Cell Distribution Width 14.4 % (11.6-14.8) Platelet Count 396 K/UL (150-450) Mean Platelet Volume 5.7 FL (6.5-10.1) L Neutrophils (%) (Auto) 73.3 % (45.0-75.0) Lymphocytes (%) (Auto) 15.4 % (20.0-45.0) L Monocytes (%) (Auto) 6.6 % (1.0-10.0) Eosinophils (%) (Auto) 4.0 % (0.0-3.0) H Basophils (%) (Auto) 0.7 % (0.0-2.0) Sodium Level 138 MMOL/L (136-145) Potassium Level 3.7 MMOL/L (3.5-5.1) Chloride Level 102 MMOL/L (98-107) Carbon Dioxide Level 28 MMOL/L (21-32) Anion Gap 8 mmol/L (5-15) Blood Urea Nitrogen 28 mg/dL (7-18) H Creatinine 1.3 MG/DL (0.55-1.30) Estimat Glomerular Filtration Rate 40.9 mL/min (>60) Glucose Level 182 MG/DL (74-106) H Calcium Level 10.0 MG/DL (8.5-10.1) Magnesium Level 1.9 MG/DL (1.8-2.4) Total Bilirubin 0.2 MG/DL (0.2-1.0) Aspartate Amino Transf (AST/SGOT) 21 U/L (15-37) Alanine Aminotransferase (ALT/SGPT) 25 U/L (12-78) Alkaline Phosphatase 261 U/L (46-116) H Total Protein 7.0 G/DL (6.4-8.2) Albumin 2.1 G/DL (3.4-5.0) L Globulin 4.9 g/dL Albumin/Globulin Ratio 0.4 (1.0-2.7) L Current Medications Medications (Trade) Dose Ordered Sig/Kajal Route PRN Reason Start Time Stop Time Status Last Admin Dose Admin Acetaminophen (Tylenol) 650 mg Q6H PRN ORAL headache 01/14/19 09:00 02/13/19 08:59 Al Hydroxide/Mg Hydroxide (Mylanta) 30 ml Q4H PRN ORAL dyspepsia 01/29/19 08:00 02/28/19 07:59 01/30/19 02:53 Amlodipine Besylate (Norvasc) 5 mg BID ORAL 01/12/19 18:00 02/02/19 08:59 01/30/19 09:06 Barium Sulfate (Readi-Cat 2) 450 ml NOW PRN ORAL Radiology Procedure 01/30/19 08:00 02/01/19 07:59 Chlorhexidine Gluconate (Yulia-Hex 2%) 1 applic DAILY@1999 TOPIC 01/22/19 20:00 02/21/19 19:59 01/29/19 20:21 Clonidine HCl (Catapres Tab) 0.1 mg Q6H PRN SL SBP>150 mmHg 01/29/19 08:45 10/19/19 08:44 Dextrose 1,000 ml @ 0 mls/hr Q24H PRN IV PN interrupted or unavailable 01/22/19 20:00 02/21/19 19:59 Dextrose (Dextrose 50%) 25 ml Q30M PRN IV Hypoglycemia 01/22/19 11:30 02/21/19 11:29 Dextrose (Dextrose 50%) 50 ml Q30M PRN IV Hypoglycemia 01/22/19 11:30 02/21/19 11:29 Diphenhydramine HCl (Benadryl) 50 mg Q4H PRN ORAL Itching 01/25/19 18:00 02/08/19 17:59 01/29/19 20:58 Fat Emulsion Intravenous 216 ml/Amino Acids/ Electrolytes/ Dextrose 1,776 ml @ 74 mls/hr Q24H IV 01/25/19 20:00 02/24/19 19:59 01/29/19 20:22 Fluconazole/ Sodium Chloride 200 ml @ 200 mls/hr Q24H IV 01/25/19 17:00 02/01/19 16:59 01/29/19 16:44 Heparin Sodium/ Sodium Chloride (Heparin 1000 units/500ml Premix) 1,000 unit ONCE PRN IV PICC PLACEMENT 01/22/19 11:30 02/21/19 11:29 Insulin Aspart (NovoLOG) Q6HR SUBQ 01/23/19 00:00 02/22/19 00:00 01/30/19 12:35 Iohexol (OMNIPAQUE-300 100ml) 100 ml NOW PRN INJ Radiology Procedure 01/30/19 08:00 02/01/19 07:59 Levothyroxine Sodium (Synthroid) 125 mcg DAILY@0630 ORAL 01/24/19 06:30 02/23/19 06:29 01/30/19 06:10 Lidocaine HCl (Xylocaine Jelly 2%) 1 applic Q3H PRN TOPIC BURNING AROUND MEATUS 01/14/19 17:15 02/13/19 17:14 01/17/19 12:50 Lisinopril (Prinivil) 40 mg DAILY ORAL 01/29/19 09:00 02/15/19 08:59 01/30/19 09:06 Metoprolol Succinate (Toprol XL) 50 mg DAILY@1200 ORAL 01/29/19 12:00 02/28/19 11:59 01/30/19 12:28 Mycophenolate Mofetil (Cellcept) 750 mg Q12HR@0000,1200 ORAL 01/29/19 00:00 02/28/19 00:00 01/30/19 12:27 Naloxone HCl (Narcan) 0.1 mg PRN IV Sedation scale 3 or 4 01/12/19 13:30 02/03/19 13:44 Ondansetron HCl (Zofran) 4 mg Q6H PRN IVP Nausea & Vomiting 01/25/19 16:00 02/02/19 15:59 01/29/19 23:40 Oxycodone/ Acetaminophen (Percocet 5-325) 1 tab Q4H PRN ORAL For Pain 01/27/19 08:15 02/03/19 08:14 01/30/19 12:31 Phytonadione (Vitamin K) 10 mg ONCE A WEEK SUBQ 01/22/19 12:00 02/21/19 11:59 01/29/19 12:43 Potassium Chloride/Sodium Chloride 1,000 ml @ 100 mls/hr Q10H IV 01/30/19 15:30 02/28/19 15:29 Prochlorperazine (Compazine) 10 mg Q6H PRN IVP Nausea & Vomiting 01/22/19 15:30 02/21/19 15:17 01/30/19 07:13 Tacrolimus (Prograf) 1 mg DAILY ORAL 01/13/19 09:00 02/04/19 08:59 01/30/19 09:05 Tacrolimus (Prograf) 2 mg BEDTIME ORAL 01/29/19 21:00 02/02/19 20:59 01/29/19 20:21 Trazodone HCl (Desyrel) 25 mg HSPRN PRN ORAL INSOMNIA 01/12/19 20:00 02/03/19 19:59 01/29/19 02:18 Philly Shelby MD Jan 30, 2019 16:01
--- NOTE | 2019-01-30 19:30 | NUR ---
HAND-OFF: Report given to Camrono RN. Patient is stable.
--- NOTE | 2019-01-30 19:30 | NUR ---
NURSE NOTES: Receive a report from PATRICK Cruz. Round is done. Pt is awake and alert, lying in bed with semi-folwer's position. Denies any pain. No nausea sensation noted. Gastrostomy reconnects to continuous moderate wall suction. Ileostomy on RLQ drainage collecting to drainage bag. TPN and N/S with KCL are running via PICC on MARILY. PICC site is clear without infection signs. Call light within reach. Will continue to monitor of oral intake and output from gastrostomy.
[2019-01-30 20:00] VITALS: BP 144/78
[2019-01-30] MEDS: Dyna-Hex 2% Top Sol 2oz TOPIC SCH (20:52)
[2019-01-30] MEDS: Fat Emulsion Iv 20% 216 ML in Tpn 1,560 ML IV SCH (20:52)
[2019-01-30] MEDS: TraZODone HCl 25 mg tablet ORAL PRN (20:55)
--- NOTE | 2019-01-30 21:00 | NUR ---
NURSE NOTES: Gastrostomy is clamp after medication. Meanwhile 200ml drained via G-tube. No nausea sensation noted. Denies any pain. No acute distress noted. No febrile sensation. Will continue to monitor.
[2019-01-31] VITALS (7 sets, daily range): BP systolic 136–160; BP diastolic 75–88
[2019-01-31] MEDS: TraZODone HCl 25 mg tablet ORAL PRN ×2 (00:13→22:34)
[2019-01-31] MEDS: Mycophenolate 250mg cap ORAL SCH ×3 (00:13→21:51)
[2019-01-31] MEDS: NovoLOG Insulin Flexpen SUBQ SCH ×5 (00:14→23:54)
--- NOTE | 2019-01-31 00:30 | NUR ---
NURSE NOTES: While pt swallowing medication, pt starts to cough and lead to vomit once 75ml of light greenish color with saliva. No nausea or esophageal soreness noted. G-tube got clamped after medication. Pt does not want to take medication. Will continue to monitor.
[2019-01-31] MEDS: NS w/KCl 40mEq 1,000 ML IV SCH ×2 (01:21→11:13)
--- NOTE | 2019-01-31 01:30 | NUR ---
NURSE NOTES: No nausea/ vomiting noted. Unclamped G-tube after medication and done flush with N/S 20ml. Drained 150ml greenish gastric juice. Will continue to monitor.
--- NOTE | 2019-01-31 02:20 | NUR ---
NURSE NOTES: Pt's feeling nausea sense and has greenish color of vomiting, 150ml. Pt states that sometimes coughing can cause vomiting. G-tube has been unclamped. Provide Compazine 10mg IVS per pt's request. Will continue to monitor.
--- NOTE | 2019-01-31 03:30 | NUR ---
NURSE NOTES: Pt is asleep. No nausea/vomiting noted. Will continue to monitor.
[2019-01-31 05:37] LABS: BASOPHILS % (AUTO) 0.7 % (0.0-2.0); EOSINOPHILS % (AUTO) 5.6 % (0.0-3.0); HEMATOCRIT 31.9 % (37.0-47.0); HEMOGLOBIN 10.3 G/DL (12.0-16.0); LYMPHOCYTES % (AUTO) 20.2 % (20.0-45.0); MEAN CORPUSCULAR VOLUME 89 FL (80-99); MONOCYTES % (AUTO) 7.7 % (1.0-10.0); NEUTROPHILS % (AUTO) 65.8 % (45.0-75.0); PLATELET COUNT 416 K/UL (150-450); RED CELL DISTRIBUTION WIDTH 14.9 % (11.6-14.8); WHITE BLOOD COUNT 6.8 K/UL (4.8-10.8)
[2019-01-31] MEDS: Levothyroxine 125mcg tab ORAL SCH (05:42)
[2019-01-31 05:49] LABS: ALANINE AMINOTRANSFERASE 25 U/L (12-78); ALBUMIN 2.2 G/DL (3.4-5.0); ALBUMIN/GLOBULIN RATIO 0.4 (1.0-2.7); ALKALINE PHOSPHATASE 273 U/L (46-116); ANION GAP 7 mmol/L (5-15); ASPARTATE AMINO TRANSFERASE 13 U/L (15-37); BILIRUBIN,TOTAL 0.2 MG/DL (0.2-1.0); BLOOD UREA NITROGEN 25 mg/dL (7-18); CARBON DIOXIDE 27 MMOL/L (21-32); CHLORIDE 106 MMOL/L (98-107); CREATININE 1.3 MG/DL (0.55-1.30); PHOSPHORUS 3.3 MG/DL (2.5-4.9); POTASSIUM 4.3 MMOL/L (3.5-5.1); SODIUM 140 MMOL/L (136-145)
--- NOTE | 2019-01-31 06:00 | NUR ---
NURSE NOTES: Pt is awake and lying in bed. No acute distress noted. No N/V noted. No abdominal discomfort noted. Will continue to monitor. 12hrs output 1) Urine: 1675ml 2) Ileostomy: 700ml 3) Gastrostomy: 950ml 4) Emesis: 225ml
--- NOTE | 2019-01-31 06:35 | General Progress Note ---
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, on Prograf and Cellcept - malnutrition, depressed Albumin, on TPN - N/V - anemia - hypothyroid on replacement Recommendations - Follow labs and replace lytes PRN - Abx per ID - monitor Prograf level, watch for Diflucan drug interaction - Continue TPN, maintain NPO + IVF - Elevate HOB - Wound care -plan EGD on Saturday for duodenal narrowing and possible dilatation Subjective ROS Limited/Unobtainable: Yes Allergies: Coded Allergies: CODEINE (Verified Allergy, Severe, 12/17/18) Face contractions HYDROMORPHONE (Verified Allergy, Severe, Itching, 12/17/18) Itching whole body METOCLOPRAMIDE (Verified Allergy, Severe, 12/17/18) Face contractions MORPHINE (Verified Allergy, Severe, Shortness of Breath, 12/17/18) SULFA (SULFONAMIDE ANTIBIOTICS) (Verified Allergy, Severe, 12/17/18) Face contractions Subjective had full dinner last night but vomited 2x bile colored fluid n abd pain good ostomy out put Objective Last 24 Hour Vital Signs Date Time Temp Pulse Resp B/P (MAP) Pulse Ox O2 Delivery O2 Flow Rate FiO2 01/31/19 05:00 98.0 107 16 140/81 (100) 95 01/31/19 00:33 155/87 01/31/19 00:30 98.4 155/87 (109) 01/31/19 00:00 105 160/88 (112) 01/30/19 21:00 Room Air 01/30/19 20:00 98.4 97 18 144/78 (100) 94 01/30/19 18:30 106 152/79 01/30/19 16:00 97.7 101 18 141/80 (100) 99 01/30/19 12:28 117 155/83 01/30/19 12:00 98.2 107 18 155/86 (109) 96 01/30/19 09:06 111/87 01/30/19 09:06 111 133/87 01/30/19 09:00 Room Air 01/30/19 08:00 98.3 111 18 133/87 (102) 98 Intake and Output 01/30/19 01/31/19 19:00 07:00 Intake Total 1200 ml 2041 ml Output Total 3695 ml 3550 ml Balance -2495 ml -1509 ml Intake Oral 1200 ml 475 ml IV Total 1566 ml Output Urine Total 1675 ml 1675 ml Gastric Drainage Total 1470 ml 950 ml Emesis 125 ml 225 ml Other 425 ml 700 ml Laboratory Tests 01/31/19 05:10: White Blood Count 6.8, Red Blood Count 3.60L, Hemoglobin 10.3L, Hematocrit 31.9L , Mean Corpuscular Volume 89, Mean Corpuscular Hemoglobin 28.8, Mean Corpuscular Hemoglobin Concent 32.4, Red Cell Distribution Width 14.9H, Platelet Count 416, Mean Platelet Volume 5.5L, Neutrophils (%) (Auto) 65.8, Lymphocytes (%) (Auto) 20.2, Monocytes (%) (Auto) 7.7, Eosinophils (%) (Auto) 5.6H, Basophils (%) (Auto) 0.7, Sodium Level 140, Potassium Level 4.3, Chloride Level 106, Carbon Dioxide Level 27, Anion Gap 7, Blood Urea Nitrogen 25H, Creatinine 1.3, Estimat Glomerular Filtration Rate 40.9, Glucose Level 181H, Calcium Level 10.0, Phosphorus Level 3.3, Magnesium Level 1.6L, Total Bilirubin 0.2, Aspartate Amino Transf (AST/SGOT) 13L, Alanine Aminotransferase (ALT/SGPT) 25, Alkaline Phosphatase 273H, Total Protein 7.3, Albumin 2.2L, Globulin 5.1, Albumin/Globulin Ratio 0.4L Height (Feet): 5 Height (Inches): 3.00 Weight (Pounds): 134 General Appearance: alert Neck: supple Cardiovascular: normal rate Respiratory/Chest: decreased breath sounds Abdomen: soft, abnormal bowel sounds, hypoactive bowel sounds, other - GT and ileostomy in place Extremities: non-tender Max Dozier MD Jan 31, 2019 06:35
--- NOTE | 2019-01-31 07:35 | NUR ---
HAND-OFF: Report given to PATRICK Chappell.
--- NOTE | 2019-01-31 08:00 | NUR ---
NURSE NOTES: Received report from Gho RN. Patient is awake and oriented, no acute distress noted, reporting no pain, reporting no nausea at this time. Breakfast at bedside. IVF running TPN and IVF per order, dressing clean and intact. External ileostomy appliance in place, no leaks noted. G-tube to wall suction per order. Patient updated on plan of care for the day, needs met. Side rails upx2, bed low and locked, call light in reach. Will continue to monitor.
[2019-01-31] MEDS: Lisinopril 20mg tab ORAL SCH (09:24)
--- NOTE | 2019-01-31 10:47 | General Progress Note ---
Progress Note Progress Note Afebrile - continued tachycardia despite increased IV fluids. voiding frequently Abdomen soft, remaining reggie removed. lleostomy appliance remains intact Urine 3350 Gastrostomy 1125 + emesis 350 = 1475 ileostomy 1125 po intake 1625 fluids + some food items labs okay with albumin 2.2 BUN down 25 Cr 1.3 Mg 1.6 Imp. Duodenal partial obstruction Plan: f/u EGD possible dilate on 02/02 npo after hs tonight and all day tomorrow pre endoscopy increase Mg IV, decrease IV fluids Lars Sotomayor MD Jan 31, 2019 10:47
[2019-01-31] MEDS: Metoprolol Succinate XL 50mg tab ORAL SCH (12:17)
[2019-01-31] MEDS ORDERED: NS Irrig 1000ml ONE (13:44)
--- NOTE | 2019-01-31 14:17 | NUR ---
CASE MANAGEMENT:REVIEW 01/31/19 SI: S/P RESECTION OF FAILED POUCH FOLLOWED BY MULTIPLE SURGERIES T 99 HR 106 RR 16 B/P 145/83 SATS 96% ON RA LABS: BUN 25 GLU 181 MG 1.6 AST 13 ALP 273 IS: TPN/IL @ 74/HR IVF+KCL @75/HR IV MAG SULFATE Q1HRS X2 BAGS IV DIFLUCAN Q24 IV MAG SULFATE Q1HRS X4 CELLCEPT PO Q12 PROGRAF PO QHS : MED/SURG STATUS 3 EAST PLAN: CT ABD/PELVIS IMPRESSION: Mild postoperative ileus suspected
[2019-01-31] MEDS: oxyCODONE HCL/Acetaminophen 5/325mg ORAL PRN (15:05)
--- NOTE | 2019-01-31 15:36 | NUR ---
NURSE NOTES: Leaking noted around external ostomy appliance. Changed external appliance and provided skin care. Removed remaining reggie from abdominal incision per order from Dr. Sotomayor.
--- NOTE | 2019-01-31 18:30 | NUR ---
NURSE NOTES: Another leak noted from ostomy bag, appliance changed and skin care done.
--- NOTE | 2019-01-31 19:00 | NUR ---
NURSE NOTES: Total ileo output: 445mL Total g-tube output: +1160mL Total urine output: 1600mL Patient tolerated diet well, no nausea or emesis during shift.
--- NOTE | 2019-01-31 19:10 | NUR ---
NURSE NOTES: Receive a report from PATRICK Chappell. Round is done. Ileostomy that has just got changed start to leak. Wound nurse is aware and will visit again. No acute distress noted. No N/V noted. Gastrostomy has got reconnected to continuous moderate wall suction. Pt is aware of MNNPO except ice chips and medication. Will continue to monitor.
--- NOTE | 2019-01-31 19:17 | NUR ---
HAND-OFF: Report given to John NGUYEN.
--- NOTE | 2019-01-31 20:30 | NUR ---
NURSE NOTES: Wound nurse revisits for change ileostomy back d/t leaking by requesting from pt. Redone changing bag and will continue to monitor for any leak. No nausea/vomiting noted. G-tube is connected to suction and will continue to monitor.
[2019-01-31] MEDS: Dyna-Hex 2% Top Sol 2oz TOPIC SCH (21:51)
[2019-01-31] MEDS: Fat Emulsion Iv 20% 216 ML in Tpn 1,560 ML IV SCH (21:54)
--- NOTE | 2019-01-31 23:30 | NUR ---
NURSE NOTES: Pt states that coughing made her vomit. Emesis is 350ml. G-tube has been clamped after medication. Unclamped G-tube with flushing. Will continue to monitor. No noted leaking from ileostomy bag but drained well with greenish drainage.
[2019-02-01] VITALS: BP 135/74
--- NOTE | 2019-02-01 03:00 | NUR ---
NURSE NOTES: Pt is awake to use bedside comode. No n/v noted after medication. No leaking from ileostomy bag. Provide ice chips d/t MMNPO as ordered. Will continue to monitor.
[2019-02-01 04:00] VITALS: BP 148/84
--- NOTE | 2019-02-01 06:00 | NUR ---
NURSE NOTES: No nausea/vomiting noted at this time. Noted leaking around the pouch on ileostomy. Will be changed. 12hrs output: Urine: 1150ml Ileostomy: 675ml+leaking Emesis: 525ml Gastrostomy: 175ml
[2019-02-01] MEDS: NovoLOG Insulin Flexpen SUBQ SCH ×4 (06:01→23:34)
[2019-02-01] MEDS: Levothyroxine 125mcg tab ORAL SCH (06:11)
--- NOTE | 2019-02-01 06:32 | General Progress Note ---
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, on Prograf and Cellcept - malnutrition, depressed Albumin, on TPN - N/V - anemia - hypothyroid on replacement Recommendations - Follow labs and replace lytes PRN - Abx per ID - monitor Prograf level, watch for Diflucan drug interaction - Continue TPN, maintain NPO + IVF - Elevate HOB - Wound care -plan EGD on Saturday for duodenal narrowing and possible dilatation Subjective ROS Limited/Unobtainable: Yes Allergies: Coded Allergies: CODEINE (Verified Allergy, Severe, 12/17/18) Face contractions HYDROMORPHONE (Verified Allergy, Severe, Itching, 12/17/18) Itching whole body METOCLOPRAMIDE (Verified Allergy, Severe, 12/17/18) Face contractions MORPHINE (Verified Allergy, Severe, Shortness of Breath, 12/17/18) SULFA (SULFONAMIDE ANTIBIOTICS) (Verified Allergy, Severe, 12/17/18) Face contractions Objective Last 24 Hour Vital Signs Date Time Temp Pulse Resp B/P (MAP) Pulse Ox O2 Delivery O2 Flow Rate FiO2 02/01/19 04:00 97.6 106 16 148/84 (105) 96 02/01/19 00:00 98.0 101 16 135/74 (94) 95 01/31/19 21:00 Room Air 01/31/19 20:00 97.4 98 16 136/75 (95) 95 01/31/19 18:44 98 146/82 01/31/19 16:00 98.6 98 16 146/82 (103) 98 01/31/19 12:17 106 145/83 01/31/19 12:00 99.0 106 16 145/83 (103) 96 01/31/19 09:25 109 157/86 01/31/19 09:24 157/86 01/31/19 09:00 Room Air 01/31/19 08:00 98.0 109 16 157/86 (109) 98 Intake and Output 01/31/19 02/01/19 19:00 07:00 Intake Total 4164 ml 1316 ml Output Total 3205 ml 2525 ml Balance 959 ml -1209 ml Intake Oral 2400 ml 200 ml IV Total 1764 ml 1116 ml Output Urine Total 1600 ml 1150 ml Gastric Drainage Total 175 ml Emesis 525 ml Other 1605 ml 675 ml Height (Feet): 5 Height (Inches): 3.00 Weight (Pounds): 134 General Appearance: alert EENT: normal ENT inspection Neck: supple Cardiovascular: normal rate Respiratory/Chest: decreased breath sounds Abdomen: soft, other - post surgical Extremities: non-tender Max Dozier MD Feb 01, 2019 06:32
[2019-02-01] MEDS: NS w/KCl 40mEq 1,000 ML IV SCH (06:43)
--- NOTE | 2019-02-01 07:00 | NUR ---
NURSE NOTES: Noted skin redness around stoma when the pouch got removed. Leave the skin to air for dry. Ileostomy bag has been changed. Will continue to monitor.
--- NOTE | 2019-02-01 07:15 | NUR ---
HAND-OFF: Report given to PATRICK Chappell.
--- NOTE | 2019-02-01 07:30 | NUR ---
NURSE NOTES: Received report from Gho RN. Patient is awake and oriented, no acute distress noted. Reporting no pain at this time. Surgical site clean and dry, external appliance changed this morning by night clerk nurse, intact with no leaks at this time. IVF an TPN running through MARILY PICC per order. Wall suction to g-tube per order. NPO maintained. Patient updated on plan of care for the day. Side rails upx2, bed low and locked, call light in reach. Will continue to monitor.
[2019-02-01 08:00] VITALS: BP 147/72
[2019-02-01 08:15] LABS: BASOPHILS % (AUTO) 0.8 % (0.0-2.0); EOSINOPHILS % (AUTO) 3.9 % (0.0-3.0); HEMATOCRIT 32.8 % (37.0-47.0); LYMPHOCYTES % (AUTO) 17.2 % (20.0-45.0); MEAN CORPUSCULAR VOLUME 89 FL (80-99); MONOCYTES % (AUTO) 5.8 % (1.0-10.0); NEUTROPHILS % (AUTO) 72.3 % (45.0-75.0); PLATELET COUNT 437 K/UL (150-450); RED BLOOD COUNT 3.71 M/UL (4.20-5.40); RED CELL DISTRIBUTION WIDTH 14.9 % (11.6-14.8); WHITE BLOOD COUNT 7.3 K/UL (4.8-10.8)
[2019-02-01 08:37] LABS: ALANINE AMINOTRANSFERASE 26 U/L (12-78); ALBUMIN 2.4 G/DL (3.4-5.0); ALBUMIN/GLOBULIN RATIO 0.5 (1.0-2.7); ALKALINE PHOSPHATASE 274 U/L (46-116); ANION GAP 9 mmol/L (5-15); ASPARTATE AMINO TRANSFERASE 19 U/L (15-37); BILIRUBIN,TOTAL 0.2 MG/DL (0.2-1.0); BLOOD UREA NITROGEN 26 mg/dL (7-18); CALCIUM 10.4 MG/DL (8.5-10.1); CARBON DIOXIDE 25 MMOL/L (21-32); CHLORIDE 102 MMOL/L (98-107); CREATININE 1.3 MG/DL (0.55-1.30); POTASSIUM 4.5 MMOL/L (3.5-5.1); SODIUM 136 MMOL/L (136-145)
--- NOTE | 2019-02-01 08:49 | General Progress Note ---
Progress Note Progress Note Afebrile. Pulse decreased 98-106 Ileostomy appliance stayed on x 3 days, then needed to be changed x 3 yesterday Abdomen soft Stoma well formed po intake 2600cc Urine 2750 Gastrostomy 1335 + emesis 525 = 1860 Ileostomy 1120 Hgb up 11 Na 136 K 4.5 NUN 26 stable Cr 1.3 stable Albumin up 2.4 Mg 2.0 Imp: partial obstruction of 3rd portion of the duodenum Plan: npo x meds, TPN + IV fluids EGD in AM - ? stent Lars Sotomayor MD Feb 01, 2019 08:49
[2019-02-01] MEDS: Mycophenolate 250mg cap ORAL SCH ×2 (09:37→21:20)
[2019-02-01] MEDS: Metoprolol Succinate XL 50mg tab ORAL SCH (09:37)
[2019-02-01] MEDS: Lisinopril 20mg tab ORAL SCH (09:37)
--- NOTE | 2019-02-01 10:00 | NUR ---
PT Note Attempted to see patient this AM for PT but lee ann c/o having "a rough night." Patient requested to defer PT today.
[2019-02-01 12:00] VITALS: BP 142/90
--- NOTE | 2019-02-01 12:13 | Cardiology Report ---
APPROVED REPORT EXAM: Two-dimensional and M-mode echocardiogram with Doppler and color Doppler. INDICATION [employer] M-Mode DIMENSIONS IVSd0.9 (0.7-1.1cm)Left Atrium (MM)3.5 (1.6-4.0cm) LVDd3.8 (3.5-5.6cm)Aortic Root2.3 (2.0-3.7cm) PWd0.9 (0.7-1.1cm)Aortic Cusp Exc.1.7 (1.5-2.0cm) LVDs2.4 (2.5-4.0cm) PWs1.3 cm Normal left ventricular chamber size, systolic function and wall motion. Left ventricular ejection fraction estimated to be 65%. No left ventricular hypertrophy. No evidence of pericardial effusion. All other cardiac chamber sizes are within normal limits. Focal aortic valve sclerosis with adequate cusp excursion. Thickened mitral valve leaflets with normal excursion. Mitral annulus and aortic root calcification. Pulmonic valve not well visualized. Normal tricuspid valve structure. . IVC at normal size with slight physiologic collapse. A color flow and spectral Doppler study was performed and revealed: Trace aortic regurgitation. Mild mitral regurgitation. Mitral diastolic velocities suggest reduced left ventricular relaxation c/w mild LV diastolic dysfunction (Grade I). Mild tricuspid regurgitation. Tricuspid systolic velocities suggests peak right ventricular systolic pressure of 24 mmHg. Pulmonic regurgitation present.
--- NOTE | 2019-02-01 12:13 | NUR ---
CASE MANAGEMENT:REVIEW 02/01/19 SI: S/P RESECTION OF FAILED POUCH FOLLOWED BY MULTIPLE SURGERIES T 98 HR 101 RR 16 B/P 135/74 SATS 95% ON RA BUN 26 GLU 174 CA 10.4 ALP 274 IS: TPN/IL @ 74/HR IVF+KCL @75/HR IV MAG SULFATE Q1HRS X2 BAGS IV DIFLUCAN Q24 IV MAG SULFATE Q1HRS X4 CELLCEPT PO Q12 PROGRAF PO QHS : MED/SURG STATUS 3 [facility]
[2019-02-01] MEDS ORDERED: Naloxone 0.4mg/ml Inj IV PRN (13:30)
[2019-02-01] MEDS: oxyCODONE HCL/Acetaminophen 5/325mg ORAL PRN ×2 (14:15→21:21)
--- NOTE | 2019-02-01 14:49 | Infectious Diseases Prog Note ---
Assessment/Plan Assessment/Plan ASSESSMENT AND PLAN: 1. hx of leukocytosis, fevers, ? 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 infiltrated iv, ? cellulitis right arm - now resolved n/v persists, partial duodenal obstruction - fluconazole based on jeff species is preferred drug especially in view of micafungin treatment prior to becoming fungemic - day # 12 anti-fungal, plan on at least 2 weeks treatment, monitor prograf levels - plan on dilatation/EGD per GI - surveillance blood cultures negative to date - monitor labs, leukocytosis and fevers resolved - on 2D echo - no vegetations mentioned per report 2. 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 3. Liver transplantation. 4. Sclerosing cholangitis. 5. Ulcerative colitis. 6. The patient is anemic. 7. History of cholecystectomy, appendectomy, hysterectomy, and proctocolectomy. 8. History of multiple abdominal operations. 9. Allergies to codeine, hydromorphone, metoclopramide, morphine, and sulfa. 10. Family doctor is Noncontributory. 11. Social history is negative. 12. MAR was noted. 13. Case discussed with RN. 14. Case discussed with the patient. 15. Continue treatment per Dr. Sotomayor and consultants. Subjective Constitutional: Denies: fever Respiratory: Denies: shortness of breath Cardiovascular: Denies: chest pain Gastrointestinal/Abdominal: Reports: nausea, vomiting Neurologic: Denies: headache Psychiatric: Denies: depression Skin: Denies: rash Hematologic: Denies: bleeding Musculoskeletal: Denies: pain Allergies: Coded Allergies: CODEINE (Verified Allergy, Severe, 12/17/18) Face contractions HYDROMORPHONE (Verified Allergy, Severe, Itching, 12/17/18) Itching whole body METOCLOPRAMIDE (Verified Allergy, Severe, 12/17/18) Face contractions MORPHINE (Verified Allergy, Severe, Shortness of Breath, 12/17/18) SULFA (SULFONAMIDE ANTIBIOTICS) (Verified Allergy, Severe, 12/17/18) Face contractions Objective Vital Signs Last 24 Hour Vital Signs Date Time Temp Pulse Resp B/P (MAP) Pulse Ox O2 Delivery O2 Flow Rate FiO2 02/01/19 12:00 98.6 95 16 142/90 (107) 95 02/01/19 09:38 102 147/72 02/01/19 09:37 102 147/72 02/01/19 09:37 147/72 02/01/19 09:00 Room Air 02/01/19 08:00 98.6 102 16 147/72 (97) 96 02/01/19 04:00 97.6 106 16 148/84 (105) 96 02/01/19 00:00 98.0 101 16 135/74 (94) 95 01/31/19 21:00 Room Air 01/31/19 20:00 97.4 98 16 136/75 (95) 95 01/31/19 18:44 98 146/82 01/31/19 16:00 98.6 98 16 146/82 (103) 98 Height (Feet): 5 Height (Inches): 3.00 Weight (Pounds): 134 General Appearance: no acute distress HEENT: normocephalic, atraumatic, anicteric, mucous membranes moist Respiratory/Chest: lungs clear, normal breath sounds, no respiratory distress, no accessory muscle use Cardiovascular: normal rate, regular rhythm, no gallop/murmur, no JVD Abdomen: normal bowel sounds, soft, non tender, no organomegaly, non distended Genitourinary: other - no morales, no cva pain Extremities: no cyanosis Skin: no rash 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 Evidence of total colectomy. Right lower abdominal wall ostomy is new since prior study. Previously seen left lower quadrant ostomy has been taken down. 2. Prominent proximal duodenum narrowing between the SMA and aorta. Query SMA syndrome. 3. Left lower abdominal wall percutaneous drainage catheter with tip in the right anterior lower abdomen. There is 3.6 x 6 cm fluid collection in the anterior lower pelvis and another loculated 2.8 x 3 cm collection to the right, likely connecting. There are surgical clips associated with the fluid collections and this may be unopacified patulous small bowel, limited as the oral contrast has not reached the distal small bowel loops. Consider delayed imaging. 4. Smaller loculated fluid with small air bubbles in the pelvis, likely due to recent postop changes, cannot exclude fistula or leak. 5. Anterior abdominal wall vertical incision with small fluid along the incision in the subcutaneous soft tissue. 6. Percutaneous gastrostomy tube. 7. Tiny bilateral nonobstructive renal stones. No ureteral stone or renal obstruction. CT abdomen and pelvis - 12/26/18 - Status post recent abdominal surgery with creation of a left lower quadrant Yajaira ileostomy. Good bowel and bag opacification with no evidence of bowel obstruction. Unusual, markedly distended unopacified loop of bowel in the pelvis. Although unopacified, this does not appear to be an abscess as there is a wall and other characteristics more in keeping with bowel. Would consider a large diverticulum or possibly remnant of the previous Kock pouch or part of the small bowel leading to the old pouch as those segments are sometimes quite distended. Status post liver transplant. Status post cholecystectomy. Mild basal atelectasis. Chest x-ray - no pna, report noted CT abdomen/pelvis - 12/30/18 - Impression: Postsurgical changes, as described Unusual tubular structure filled mostly with gas but also some fluid communicating with the small bowel at the site of a right lower quadrant enteroenterostomy. Uncertain as to whether this represents an unusual large diverticulum, a true extraluminal gas collection, or a portion of an old continent ileostomy pouch. This is also previously described Dilated proximal small bowel proximal to the enteroenterostomy with slow forward propulsion of contents. Partial small bowel obstruction not completely excludable although unlikely given evidence of forward propulsion of contrast and filling of the ileostomy on prior 12/26/2018 exam; findings most likely functional in nature. Correlate with clinical findings Small anterior pelvic and deep pelvic fluid pockets, most likely represent retained postoperative fluid collections. Abscess as etiology of any of these not completely excludable; correlation with clinical findings recommended Postsurgical changes of the liver status post transplantation Punctate nonobstructing bilateral intrarenal calculi Bilateral basilar pulmonary parenchymal atelectasis and/or scarring Chest x-ray - 01/07/19 - Images previously reviewed in person with Dr. Schiller Interval placement of a right transjugular central line, catheter tip in the region of the high right atrium. Left arm PICC line remains in place with the catheter tip at the cavoatrial junction. No evidence of pneumothorax. No definite focal airspace consolidation or pleural effusion. Surgical clips noted projecting over the upper abdomen. Microbiology Date/Time Source Procedure Growth Status 01/21/19 04:40 Blood Blood Culture - Final NO GROWTH AFTER 5 DAYS Complete 01/28/19 09:10 Stool Clostridium difficile Toxin Assay - Final Complete 01/17/19 19:14 Indwelling Cath Urine Culture - Final Jeff Parapsilosis Complete 01/06/19 22:30 Abdominal Fluid Gram Stain - Final Complete 01/06/19 22:30 Body Fluid Culture - Final Jeff Albicans Complete Laboratory Tests Test 02/01/19 07:10 White Blood Count 7.3 K/UL (4.8-10.8) Red Blood Count 3.71 M/UL (4.20-5.40) L Hemoglobin 11.0 G/DL (12.0-16.0) L Hematocrit 32.8 % (37.0-47.0) L Mean Corpuscular Volume 89 FL (80-99) Mean Corpuscular Hemoglobin 29.6 PG (27.0-31.0) Mean Corpuscular Hemoglobin Concent 33.4 G/DL (32.0-36.0) Red Cell Distribution Width 14.9 % (11.6-14.8) H Platelet Count 437 K/UL (150-450) Mean Platelet Volume 5.6 FL (6.5-10.1) L Neutrophils (%) (Auto) 72.3 % (45.0-75.0) Lymphocytes (%) (Auto) 17.2 % (20.0-45.0) L Monocytes (%) (Auto) 5.8 % (1.0-10.0) Eosinophils (%) (Auto) 3.9 % (0.0-3.0) H Basophils (%) (Auto) 0.8 % (0.0-2.0) Sodium Level 136 MMOL/L (136-145) Potassium Level 4.5 MMOL/L (3.5-5.1) Chloride Level 102 MMOL/L (98-107) Carbon Dioxide Level 25 MMOL/L (21-32) Anion Gap 9 mmol/L (5-15) Blood Urea Nitrogen 26 mg/dL (7-18) H Creatinine 1.3 MG/DL (0.55-1.30) Estimat Glomerular Filtration Rate 40.9 mL/min (>60) Glucose Level 174 MG/DL (74-106) H Calcium Level 10.4 MG/DL (8.5-10.1) H Magnesium Level 2.0 MG/DL (1.8-2.4) Total Bilirubin 0.2 MG/DL (0.2-1.0) Aspartate Amino Transf (AST/SGOT) 19 U/L (15-37) Alanine Aminotransferase (ALT/SGPT) 26 U/L (12-78) Alkaline Phosphatase 274 U/L (46-116) H Total Protein 7.6 G/DL (6.4-8.2) Albumin 2.4 G/DL (3.4-5.0) L Globulin 5.2 g/dL Albumin/Globulin Ratio 0.5 (1.0-2.7) L Current Medications Medications (Trade) Dose Ordered Sig/Kajal Route PRN Reason Start Time Stop Time Status Last Admin Dose Admin Acetaminophen (Tylenol) 650 mg Q6H PRN ORAL headache 01/14/19 09:00 02/13/19 08:59 Al Hydroxide/Mg Hydroxide (Mylanta) 30 ml Q4H PRN ORAL dyspepsia 01/29/19 08:00 02/28/19 07:59 02/01/19 00:22 Amlodipine Besylate (Norvasc) 5 mg BID ORAL 02/01/19 09:00 02/21/19 23:59 02/01/19 09:38 Chlorhexidine Gluconate (Yulia-Hex 2%) 1 applic DAILY@2000 TOPIC 01/22/19 20:00 02/21/19 19:59 01/31/19 21:51 Clonidine HCl (Catapres Tab) 0.1 mg Q6H PRN SL SBP>150 mmHg 01/29/19 08:45 02/07/19 08:44 01/31/19 00:33 Dextrose 1,000 ml @ 0 mls/hr Q24H PRN IV PN interrupted or unavailable 01/22/19 20:00 02/21/19 19:59 Dextrose (Dextrose 50%) 25 ml Q30M PRN IV Hypoglycemia 01/22/19 11:30 02/21/19 11:29 Dextrose (Dextrose 50%) 50 ml Q30M PRN IV Hypoglycemia 01/22/19 11:30 02/21/19 11:29 Diphenhydramine HCl (Benadryl) 50 mg Q4H PRN ORAL Itching 01/25/19 18:00 02/08/19 17:59 01/29/19 20:58 Fat Emulsion Intravenous 216 ml/Amino Acids/ Electrolytes/ Dextrose 1,776 ml @ 74 mls/hr Q24H IV 01/25/19 20:00 02/24/19 19:59 01/31/19 21:54 Fluconazole/ Sodium Chloride 200 ml @ 200 mls/hr Q24H IV 01/30/19 17:00 02/06/19 16:59 01/31/19 18:15 Heparin Sodium/ Sodium Chloride (Heparin 1000 units/500ml Premix) 1,000 unit ONCE PRN IV PICC PLACEMENT 01/22/19 11:30 02/21/19 11:29 Insulin Aspart (NovoLOG) Q6HR SUBQ 01/23/19 00:00 02/22/19 00:00 02/01/19 12:11 Levothyroxine Sodium (Synthroid) 125 mcg DAILY@0630 ORAL 01/24/19 06:30 02/23/19 06:29 02/01/19 06:11 Lidocaine HCl (Xylocaine Jelly 2%) 1 applic Q3H PRN TOPIC BURNING AROUND MEATUS 01/14/19 17:15 02/13/19 17:14 01/17/19 12:50 Lisinopril (Prinivil) 40 mg DAILY ORAL 01/29/19 09:00 02/15/19 08:59 02/01/19 09:37 Metoprolol Succinate (Toprol XL) 50 mg DAILY ORAL 02/01/19 09:00 02/28/19 11:59 02/01/19 09:37 Mycophenolate Mofetil (Cellcept) 750 mg Q12HR ORAL 01/31/19 21:00 02/28/19 00:00 02/01/19 09:37 Naloxone HCl (Narcan) 0.1 mg PRN IV Sedation scale 3 or 4 02/01/19 13:30 03/03/19 13:29 Ondansetron HCl (Zofran) 4 mg Q6H PRN IVP Nausea & Vomiting FIRST CHOICE 01/31/19 13:00 02/08/19 12:59 02/01/19 09:45 Oxycodone/ Acetaminophen (Percocet 5-325) 1 tab Q4H PRN ORAL For Pain 02/01/19 09:00 02/08/19 08:59 02/01/19 14:15 Phytonadione (Vitamin K) 10 mg ONCE A WEEK SUBQ 01/22/19 12:00 02/21/19 11:59 01/29/19 12:43 Potassium Chloride/Sodium Chloride 1,000 ml @ 50 mls/hr Q20H IV 01/31/19 11:00 02/28/19 10:59 02/01/19 06:43 Prochlorperazine (Compazine) 10 mg Q6H PRN IVP Nausea & Vomiting 01/22/19 15:30 02/21/19 15:17 02/01/19 00:39 Tacrolimus (Prograf) 1 mg DAILY ORAL 01/13/19 09:00 02/04/19 08:59 02/01/19 09:37 Tacrolimus (Prograf) 2 mg BEDTIME ORAL 01/31/19 21:00 02/04/19 20:59 01/31/19 21:51 Trazodone HCl (Desyrel) 25 mg HSPRN PRN ORAL INSOMNIA 02/01/19 08:45 02/23/19 08:44 Philly Shelby MD Feb 01, 2019 14:49
[2019-02-01 16:00] VITALS: BP 130/78
--- NOTE | 2019-02-01 19:00 | NUR ---
NURSE NOTES: Total ileo output: 375mL Total g-tube output: +280mL Total urine output: 1100mL No episodes of N/V today. External ileostomy appliance changed twice for leaking, skin care provided.
--- NOTE | 2019-02-01 19:22 | Cardiology Progress Note ---
Assessment/Plan Status Narrative 1. Malfunctioning Kock pouch continent ileostomy. 2. History of ulcerative colitis. 3. History of primary sclerosing cholangitis. 4. Status post multiple abdominal operations. 4.1. Appendectomy in 1964. 4.2. Proctocolectomy and Kock pouch in 1978. 4.3. Total abdominal hysterectomy and bilateral salpingo-oophorectomy 1983 4.4. Cholecystectomy in 1985. 4.5. Orthotopic liver transplantation in 1999. 4.6. Revision of Kock pouch and repair of fistula in 2010. HTN- New onset- Controlled on Norvasc /Lisinopril and Metoprolol Tachycardia- probably due to volume depletion Renal insuff- Most probably due volume depletion ( High GT output), - Creat 1.3 Volume depletion- high GT output- Esophagitis Duodenal narrowing Vomiting -due to duodenal narrowing Assessment/Plan Metoprolol 25 mg QD Zestril 40 mg QD. Norvasc 5 mg BID Monitor BP TPN and Peripheral IV - taper as per Dr. Sotomayor Diet as per DR. Sotomayor Plan EGD and possible stent in AM. Discussed with RN. Subjective Cardiovascular: Reports: no symptoms; Denies: chest pain, lightheadedness, palpitations Respiratory: Reports: no symptoms; Denies: cough, shortness of breath Gastrointestinal/Abdominal: Reports: other; Denies: abdominal pain, vomiting - Leakage around the stoma, has been NPO Genitourinary: Reports: no symptoms Subjective Still NPO vomiting x1 today Having out put from ileostomy Has been out of bed, ambulated. Pain controlled Creat 1.3 High output from GT- now being plugged Q2h S/P EGD today- showed gastriris/esophagitis with mid duodenal narrowing 01/21/19- had Gatrografin UGI study, increased ileostomy output. No vomiting today. 01/22/10- has tolerated clear liquids, had vomiting x1 this morning. 01/23- Started on solid food 01/24- Vomited after breakfast, and lunch- TPN @74 cc/h, IV @ 70 cc/h 01/26- No vomiting today, tolerated solids, still on TPN 01/29 Small amount of vomiting earlier, has tolerated her lunch 01/30- Had CT done- showing persistent duodenal narrowing, Has had vmiting, high GT utput. IOs negative, Creat 1.3, HR 117 02/01- NPO, no Vomiting, scheduled for EGD in AM Objective Last 24 Hour Vital Signs Date Time Temp Pulse Resp B/P (MAP) Pulse Ox O2 Delivery O2 Flow Rate FiO2 02/01/19 18:54 98 130/78 02/01/19 16:00 98.4 98 16 130/78 (95) 96 02/01/19 12:00 98.6 95 16 142/90 (107) 95 02/01/19 09:38 102 147/72 02/01/19 09:37 102 147/72 02/01/19 09:37 147/72 02/01/19 09:00 Room Air 02/01/19 08:00 98.6 102 16 147/72 (97) 96 02/01/19 04:00 97.6 106 16 148/84 (105) 96 02/01/19 00:00 98.0 101 16 135/74 (94) 95 01/31/19 21:00 Room Air 01/31/19 20:00 97.4 98 16 136/75 (95) 95 Cardiovascular: normal rate, no gallop/murmur Respiratory/Chest: lungs clear Abdomen: normal bowel sounds, non tender, no mass Extremities: non-tender, normal inspection, no swelling Intake and Output 01/31/19 02/01/19 18:59 06:59 Intake Total 4338 ml 1316 ml Output Total 3205 ml 2525 ml Balance 1133 ml -1209 ml Intake Oral 2400 ml 200 ml IV Total 1938 ml 1116 ml Output Urine Total 1600 ml 1150 ml Gastric Drainage Total 175 ml Emesis 525 ml Other 1605 ml 675 ml Laboratory Tests Test 02/01/19 07:10 White Blood Count 7.3 K/UL (4.8-10.8) Red Blood Count 3.71 M/UL (4.20-5.40) L Hemoglobin 11.0 G/DL (12.0-16.0) L Hematocrit 32.8 % (37.0-47.0) L Mean Corpuscular Volume 89 FL (80-99) Mean Corpuscular Hemoglobin 29.6 PG (27.0-31.0) Mean Corpuscular Hemoglobin Concent 33.4 G/DL (32.0-36.0) Red Cell Distribution Width 14.9 % (11.6-14.8) H Platelet Count 437 K/UL (150-450) Mean Platelet Volume 5.6 FL (6.5-10.1) L Neutrophils (%) (Auto) 72.3 % (45.0-75.0) Lymphocytes (%) (Auto) 17.2 % (20.0-45.0) L Monocytes (%) (Auto) 5.8 % (1.0-10.0) Eosinophils (%) (Auto) 3.9 % (0.0-3.0) H Basophils (%) (Auto) 0.8 % (0.0-2.0) Sodium Level 136 MMOL/L (136-145) Potassium Level 4.5 MMOL/L (3.5-5.1) Chloride Level 102 MMOL/L (98-107) Carbon Dioxide Level 25 MMOL/L (21-32) Anion Gap 9 mmol/L (5-15) Blood Urea Nitrogen 26 mg/dL (7-18) H Creatinine 1.3 MG/DL (0.55-1.30) Estimat Glomerular Filtration Rate 40.9 mL/min (>60) Glucose Level 174 MG/DL (74-106) H Calcium Level 10.4 MG/DL (8.5-10.1) H Magnesium Level 2.0 MG/DL (1.8-2.4) Total Bilirubin 0.2 MG/DL (0.2-1.0) Aspartate Amino Transf (AST/SGOT) 19 U/L (15-37) Alanine Aminotransferase (ALT/SGPT) 26 U/L (12-78) Alkaline Phosphatase 274 U/L (46-116) H Total Protein 7.6 G/DL (6.4-8.2) Albumin 2.4 G/DL (3.4-5.0) L Globulin 5.2 g/dL Albumin/Globulin Ratio 0.5 (1.0-2.7) L Micha Ziegler MD Feb 01, 2019 19:22
--- NOTE | 2019-02-01 19:30 | NUR ---
HAND-OFF: Report given to John NGUYEN.
--- NOTE | 2019-02-01 19:30 | NUR ---
Receive a report from PATRICK Chappell. Pt is awake and alert. No acute distress noted. Breathing is even and non labored. Denies any pain. No N/V noted. Noted leaking from ileostomy bag. Change with new appliance. Noted redness around stoma and op site. Keep dry and clean. NPO except ice chips and medication. Will plan to have EGD tomorrow. TPN and IV fluid are running via PICC on MARILY. Site is clear. Call light within reach. Will continue to monitor.
[2019-02-01 20:00] VITALS: BP 137/82
[2019-02-01] MEDS: Fat Emulsion Iv 20% 216 ML in Tpn 1,560 ML IV SCH (21:26)
[2019-02-01] MEDS: Dyna-Hex 2% Top Sol 2oz TOPIC SCH (21:28)
--- NOTE | 2019-02-01 21:30 | NUR ---
NURSE NOTES: One time emesis, 100ml right after taking medication. Given anti-emesis medication. Gastrostomy is clamped after medication from continuous wall suction. No noted leaking from ileostomy bag. Will continue to monitor.
--- NOTE | 2019-02-01 22:30 | NUR ---
NURSE NOTES: Leaking from 3-4 o'clock from ileostomy bag. Clean and dry out the site and reapply Econ paste. Will continue to monitor. Nausea sense relieved after medication. No more emesis after medication.
[2019-02-02] VITALS (11 sets, daily range): BP systolic 107–148; BP diastolic 73–98
--- NOTE | 2019-02-02 | NUR ---
NURSE NOTES: Provide sleeping pill per pt's request. Inform MNNPO for EGD in the morning. Pt verbalizes understanding. No N/V noted. No leaking noted from ileostomy bag at this time. Will continue to monitor.
[2019-02-02] MEDS: TraZODone HCl 25 mg tablet ORAL PRN (00:52)
[2019-02-02] MEDS: NS w/KCl 40mEq 1,000 ML IV SCH ×2 (04:41→20:37)
[2019-02-02] MEDS: Levothyroxine 125mcg tab ORAL SCH (05:47)
[2019-02-02] MEDS: NovoLOG Insulin Flexpen SUBQ SCH ×3 (05:47→17:10)
--- NOTE | 2019-02-02 06:00 | NUR ---
NURSE NOTES: No N/V noted at this time. No acute distress noted. MNNPO for EGD. Provide oral gargling. Will continue to monitor. 12hrs output urine: 1325ml Ileostomy: 375ml+leaking Gastrostomy: 250ml Emesis: 100ml
[2019-02-02 06:20] LABS: EOSINOPHILS % (AUTO) 5.6 % (0.0-3.0); HEMATOCRIT 32.6 % (37.0-47.0); HEMOGLOBIN 10.7 G/DL (12.0-16.0); LYMPHOCYTES % (AUTO) 19.6 % (20.0-45.0); MEAN CORPUSCULAR VOLUME 90 FL (80-99); MONOCYTES % (AUTO) 5.4 % (1.0-10.0); NEUTROPHILS % (AUTO) 68.4 % (45.0-75.0); PLATELET COUNT 378 K/UL (150-450); RED BLOOD COUNT 3.63 M/UL (4.20-5.40); RED CELL DISTRIBUTION WIDTH 14.8 % (11.6-14.8)
[2019-02-02 06:43] LABS: ALANINE AMINOTRANSFERASE 25 U/L (12-78); ALBUMIN 2.4 G/DL (3.4-5.0); ALBUMIN/GLOBULIN RATIO 0.5 (1.0-2.7); ALKALINE PHOSPHATASE 269 U/L (46-116); ANION GAP 9 mmol/L (5-15); ASPARTATE AMINO TRANSFERASE 25 U/L (15-37); BILIRUBIN,TOTAL 0.2 MG/DL (0.2-1.0); BLOOD UREA NITROGEN 32 mg/dL (7-18); CARBON DIOXIDE 23 MMOL/L (21-32); CHLORIDE 105 MMOL/L (98-107); CREATININE 1.3 MG/DL (0.55-1.30); POTASSIUM 4.7 MMOL/L (3.5-5.1); SODIUM 137 MMOL/L (136-145)
[2019-02-02] MEDS ORDERED: Midazolam 2mg/2ml Inj IVP PRN (07:45)
[2019-02-02] MEDS ORDERED: DiphenhydrAMINE 50mg/ml Inj IVP PRN (07:45)
[2019-02-02] MEDS ORDERED: Atropine Inj 1mg/10ml Syr IV PRN (07:45)
--- NOTE | 2019-02-02 07:45 | Anethesia Preoperative Eval ---
Anesthesia Pre-op PMH/ROS General Date of Evaluation: Feb 02, 2019 Time of Evaluation: 07:42 Anesthesiologist: david ASA Score: ASA 3 Mallampati Score Class I : Soft palate, uvula, fauces, pillars visible Class II: Soft palate, uvula, fauces visible Class III: Soft palate, base of uvula visible Class IV: Only hard plate visible Mallampati Classification: Class II Surgeon: dimitri Diagnosis: malfunctioning barriga pouch Surgical Procedure: egd w/bx Anesthesia History: none Social History: smoking - nonsmoker Family History: no anesthesia problems Allergies: Coded Allergies: CODEINE (Verified Allergy, Severe, 12/17/18) Face contractions HYDROMORPHONE (Verified Allergy, Severe, Itching, 12/17/18) Itching whole body METOCLOPRAMIDE (Verified Allergy, Severe, 12/17/18) Face contractions MORPHINE (Verified Allergy, Severe, Shortness of Breath, 12/17/18) SULFA (SULFONAMIDE ANTIBIOTICS) (Verified Allergy, Severe, 12/17/18) Face contractions Medications: see eMAR Patient NPO?: Yes NPO Date: Jan 08, 2019 NPO Time: 0000 Past Medical History Gastrointestinal/Genitourinary: Reports: other - liver transplant, colitis, appendectomy, hysterectomy HEENT: Reports: cataract (L), cataract (R) Hematology/Immune: Reports: other - cancer PSxH Narrative: appendectomy, liver transplant, hysterectomy Anesthesia Pre-op Phys. Exam Physician Exam Last Vital Signs Date Time Temp Pulse Resp B/P (MAP) Pulse Ox O2 Delivery O2 Flow Rate FiO2 02/02/19 04:00 98.1 104 18 148/80 (102) 94 02/01/19 21:00 Room Air 01/28/19 20:00 21 Constitutional: NAD Neurologic: CN 2-12 intact Cardiovascular: RRR Respiratory: CTA Airway Exam Mallampati Score: Class II MO: limited Neck: flexible TMD: 2fb ROM: limited Anesthesia Pre-op A/P Labs Hematology Test 02/02/19 05:15 White Blood Count 7.0 K/UL (4.8-10.8) Red Blood Count 3.63 M/UL (4.20-5.40) L Hemoglobin 10.7 G/DL (12.0-16.0) L Hematocrit 32.6 % (37.0-47.0) L Mean Corpuscular Volume 90 FL (80-99) Mean Corpuscular Hemoglobin 29.5 PG (27.0-31.0) Mean Corpuscular Hemoglobin Concent 32.9 G/DL (32.0-36.0) Red Cell Distribution Width 14.8 % (11.6-14.8) Platelet Count 378 K/UL (150-450) Mean Platelet Volume 5.3 FL (6.5-10.1) L Neutrophils (%) (Auto) 68.4 % (45.0-75.0) Lymphocytes (%) (Auto) 19.6 % (20.0-45.0) L Monocytes (%) (Auto) 5.4 % (1.0-10.0) Eosinophils (%) (Auto) 5.6 % (0.0-3.0) H Basophils (%) (Auto) 1.0 % (0.0-2.0) Chemistry Test 02/02/19 05:15 Sodium Level 137 MMOL/L (136-145) Potassium Level 4.7 MMOL/L (3.5-5.1) Chloride Level 105 MMOL/L (98-107) Carbon Dioxide Level 23 MMOL/L (21-32) Anion Gap 9 mmol/L (5-15) Blood Urea Nitrogen 32 mg/dL (7-18) H Creatinine 1.3 MG/DL (0.55-1.30) Estimat Glomerular Filtration Rate 40.9 mL/min (>60) Glucose Level 164 MG/DL (74-106) H Calcium Level 10.0 MG/DL (8.5-10.1) Magnesium Level 1.8 MG/DL (1.8-2.4) Total Bilirubin 0.2 MG/DL (0.2-1.0) Aspartate Amino Transf (AST/SGOT) 25 U/L (15-37) Alanine Aminotransferase (ALT/SGPT) 25 U/L (12-78) Alkaline Phosphatase 269 U/L (46-116) H Total Protein 7.5 G/DL (6.4-8.2) Albumin 2.4 G/DL (3.4-5.0) L Globulin 5.1 g/dL Albumin/Globulin Ratio 0.5 (1.0-2.7) L Risk Assessment & Plan Assessment: asa3 Plan: mac Status Change Before Surgery: No Pre-Antibiotics Drug: Mercy Rnadolph MD Feb 02, 2019 07:45
--- NOTE | 2019-02-02 07:45 | NUR ---
HAND-OFF: Report given to PATRICK Graves. Round is done. Receive a call from endoscopy room to check. Will continue to follow up.
--- NOTE | 2019-02-02 07:46 | NUR ---
NURSE NOTES: Received report from o RN, pt a/a/o x4 laying in bed with no signs of distress or other issues at this time. surgical dressing open to air. Yajaira ileo bag in place with some liking, we will changed as protocol. PICC line in place running TPN @74ml/hr, and NS+40mEq@50ml/hr. plan for EGD today. call light within reach bed in lowest position. side rales up x2. I will f/u as needed.
--- NOTE | 2019-02-02 08:47 | Pre-Procedure Note/Attestation ---
Pre-Procedure Note/Attestation Complete Prior to Procedure Planned Procedure: not applicable Procedure Narrative: egd Indications for Procedure Pre-Operative Diagnosis: abd pain Attestation I attest that I discussed the nature of the procedure; its benefits; risks and complications; and alternatives (and the risks and benefits of such alternatives ), prior to the procedure, with the patient (or the patient's legal chemical sales representative). I attest that, if there was a reasonable possibility of needing a blood transfusion, the patient (or the patient's legal chemical sales representative) was given the [facility] standardized written summary, pursuant to the Jesus Opal Blood Safety Act ([place] Health and Safety Code # 1645, as amended). I attest that I re-evaluated the patient just prior to the surgery and that there has been no change in the patient's H&P, except as documented below: Max Dozier MD Feb 02, 2019 08:47
[2019-02-02] MEDS ORDERED: NS 500ML IVPB ONE (08:55)
[2019-02-02] MEDS ORDERED: Lidocaine 1% MPF 10mg/ml 5ml ONE (09:00)
[2019-02-02] MEDS ORDERED: Propofol 200mg/20ml IV ONE (09:00)
--- NOTE | 2019-02-02 09:15 | Endoscopy Procedure Note ---
Endoscopy Procedure Note General Indication for Procedure: vomiting Procedures Performed: EGD Operative Findings/Diagnosis: esophagitis Specimen: yes Pt Tolerated Procedure Well: Yes Estimated Blood Loss: none Anesthesia Anesthesiologist: modesta Anesthesia: MAC Inserted Devices Implant(s) used?: No GI Core Measures 50 yrs or older w/o bx or poly: Not Applicable 10yrs. F/U recommended: Not Applicable Max Dozier MD Feb 02, 2019 09:15
--- NOTE | 2019-02-02 09:45 | NUR ---
NURSE NOTES: Patient is back from EGD with no signs of distress or other issues at this time. I will f/u as needed.
[2019-02-02] MEDS: Mycophenolate 250mg cap ORAL SCH ×2 (10:57→20:37)
[2019-02-02] MEDS: Lisinopril 20mg tab ORAL SCH (10:57)
[2019-02-02] MEDS: Metoprolol Succinate XL 50mg tab ORAL SCH (10:58)
[2019-02-02] MEDS: Pantoprazole Inj IVP SCH ×2 (10:58→20:36)
--- NOTE | 2019-02-02 11:52 | General Progress Note ---
Progress Note Progress Note AVSS Past 24 hours while NPO had only 1 emesis 100cc and only 530cc of gastrostomy output. Ileostomy 750 EGD shows improvement in duodenal narrowing - no dilatation or stent needed. Has diffuse esophagitis Continued difficulty maintaining a seal with ileostomy appliance after lasting 3 days last week Abdomen soft Urine 2425 Gastrostomy 530 + emesis 100 = 630 Ileostomy 750 WBC 7000 Hgb 10.7 Platelets 378,000 BUN up 32 Cr stable 1.3 Mg 1.8 albumin 2.4 Imp. Partial duodenal obstruction resolving Shortened bowel syndrome Plan: continue TPN and IV fluids change gastrostomy to gravity drainage instead of suction BCIR low residue diet Protonix and carafate ordered by Dr. Jacoby Segovia one po before each meal Lars Sotomayor MD Feb 02, 2019 11:52
--- NOTE | 2019-02-02 12:33 | Cardiology Progress Note ---
Assessment/Plan Status Narrative 1. Malfunctioning Kock pouch continent ileostomy. 2. History of ulcerative colitis. 3. History of primary sclerosing cholangitis. 4. Status post multiple abdominal operations. 4.1. Appendectomy in 1964. 4.2. Proctocolectomy and Kock pouch in 1978. 4.3. Total abdominal hysterectomy and bilateral salpingo-oophorectomy 1983 4.4. Cholecystectomy in 1985. 4.5. Orthotopic liver transplantation in 1999. 4.6. Revision of Kock pouch and repair of fistula in 2010. HTN- New onset- Controlled on Norvasc /Lisinopril and Metoprolol Tachycardia- probably due to volume depletion Renal insuff- Most probably due volume depletion ( High GT output), - Creat 1.3 Volume depletion- high GT output- Esophagitis Duodenal narrowing Vomiting -? GI hypomobility HTN better controlled Assessment/Plan Metoprolol 25 mg QD Zestril 40 mg QD. Norvasc 5 mg BID Monitor BP TPN and Peripheral IV - taper as per Dr. Sotomayor Diet as per DR. Sotomayor Increase activity Meals in chair Will need BP meds upon DC- will give Rx prior to DC. Discussed with RN. Subjective Cardiovascular: Reports: no symptoms; Denies: chest pain Respiratory: Reports: no symptoms; Denies: shortness of breath Gastrointestinal/Abdominal: Reports: vomiting - vomited apple juice x1 Genitourinary: Reports: no symptoms Subjective Still NPO vomiting x1 today Having out put from ileostomy Has been out of bed, ambulated. Pain controlled Creat 1.3 High output from GT- now being plugged Q2h S/P EGD today- showed gastriris/esophagitis with mid duodenal narrowing 01/21/19- had Gatrografin UGI study, increased ileostomy output. No vomiting today. 01/22/10- has tolerated clear liquids, had vomiting x1 this morning. 01/23- Started on solid food 01/24- Vomited after breakfast, and lunch- TPN @74 cc/h, IV @ 70 cc/h 01/26- No vomiting today, tolerated solids, still on TPN 01/29 Small amount of vomiting earlier, has tolerated her lunch 01/30- Had CT done- showing persistent duodenal narrowing, Has had vmiting, high GT utput. IOs negative, Creat 1.3, HR 117 02/01- NPO, no Vomiting, scheduled for EGD in AM 02/02- s/p EGD today- duodenal narrowing improving, started on diet, Objective Last 24 Hour Vital Signs Date Time Temp Pulse Resp B/P (MAP) Pulse Ox O2 Delivery O2 Flow Rate FiO2 02/02/19 10:58 98 138/82 02/02/19 10:58 98 138/82 02/02/19 10:57 138/82 02/02/19 09:40 98.4 98 19 138/82 100 Nasal Cannula 3 02/02/19 09:30 100 14 138/78 99 Nasal Cannula 3 02/02/19 09:25 98 18 123/73 99 Nasal Cannula 3 02/02/19 09:20 98.3 102 18 107/77 99 Nasal Cannula 3 02/02/19 08:00 98.8 94 20 144/94 (111) 95 02/02/19 04:00 98.1 104 18 148/80 (102) 94 02/02/19 00:00 98.4 98 18 122/80 (94) 97 02/01/19 21:00 Room Air 02/01/19 20:00 97.5 95 18 137/82 (100) 97 02/01/19 18:54 98 130/78 02/01/19 16:00 98.4 98 16 130/78 (95) 96 Cardiovascular: normal rate, no gallop/murmur Respiratory/Chest: lungs clear Abdomen: non tender, hypoactive bowel sounds Extremities: non-tender, normal inspection, no calf tenderness, no swelling Intake and Output 02/01/19 02/02/19 19:00 07:00 Intake Total 1764 ml 1438 ml Output Total 1755 ml 2050 ml Balance 9 ml -612 ml IV Total 1764 ml 1438 ml Output Urine Total 1100 ml 1325 ml Gastric Drainage Total 250 ml Emesis 100 ml Other 655 ml 375 ml Laboratory Tests Test 02/02/19 05:15 White Blood Count 7.0 K/UL (4.8-10.8) Red Blood Count 3.63 M/UL (4.20-5.40) L Hemoglobin 10.7 G/DL (12.0-16.0) L Hematocrit 32.6 % (37.0-47.0) L Mean Corpuscular Volume 90 FL (80-99) Mean Corpuscular Hemoglobin 29.5 PG (27.0-31.0) Mean Corpuscular Hemoglobin Concent 32.9 G/DL (32.0-36.0) Red Cell Distribution Width 14.8 % (11.6-14.8) Platelet Count 378 K/UL (150-450) Mean Platelet Volume 5.3 FL (6.5-10.1) L Neutrophils (%) (Auto) 68.4 % (45.0-75.0) Lymphocytes (%) (Auto) 19.6 % (20.0-45.0) L Monocytes (%) (Auto) 5.4 % (1.0-10.0) Eosinophils (%) (Auto) 5.6 % (0.0-3.0) H Basophils (%) (Auto) 1.0 % (0.0-2.0) Sodium Level 137 MMOL/L (136-145) Potassium Level 4.7 MMOL/L (3.5-5.1) Chloride Level 105 MMOL/L (98-107) Carbon Dioxide Level 23 MMOL/L (21-32) Anion Gap 9 mmol/L (5-15) Blood Urea Nitrogen 32 mg/dL (7-18) H Creatinine 1.3 MG/DL (0.55-1.30) Estimat Glomerular Filtration Rate 40.9 mL/min (>60) Glucose Level 164 MG/DL (74-106) H Calcium Level 10.0 MG/DL (8.5-10.1) Magnesium Level 1.8 MG/DL (1.8-2.4) Total Bilirubin 0.2 MG/DL (0.2-1.0) Aspartate Amino Transf (AST/SGOT) 25 U/L (15-37) Alanine Aminotransferase (ALT/SGPT) 25 U/L (12-78) Alkaline Phosphatase 269 U/L (46-116) H Total Protein 7.5 G/DL (6.4-8.2) Albumin 2.4 G/DL (3.4-5.0) L Globulin 5.1 g/dL Albumin/Globulin Ratio 0.5 (1.0-2.7) L Micha Ziegler MD Feb 02, 2019 12:33
[2019-02-02] MEDS: Sucralfate 1gm tab ORAL SCH ×3 (12:49→20:36)
[2019-02-02] MEDS: Lomotil 2.5mg tab ORAL SCH ×2 (12:50→16:28)
--- NOTE | 2019-02-02 13:40 | Immediate Post-Op Evaluation ---
Immediate Post-Op Evalulation Immediate Post-Op Evalulation Procedure: egd w/bx Date of Evaluation: Feb 02, 2019 Time of Evaluation: 09:32 IV Fluids: 100ml 0.9ns Blood Products: none Estimated Blood Loss: negligible Blood Pressure Systolic: 107 Blood Pressure Diastolic: 77 Pulse Rate: 102 Respiratory Rate: 18 O2 Sat by Pulse Oximetry: 99 Temperature (Fahrenheit): 98.3 Pain Score (1-10): 0 Nausea: No Vomiting: No Complications none Patient Status: awake, reacts, patent Hydration Status: adequate Drug: Mercy Randolph MD Feb 02, 2019 13:40
--- NOTE | 2019-02-02 13:42 | 48 Hour Post Anesthesia Eval ---
Post Anesthesia Evaluation Procedure: egd w/bx Date of Evaluation: Feb 02, 2019 Time of Evaluation: 09:34 Blood Pressure Systolic: 123 0: 73 Pulse Rate: 98 Respiratory Rate: 18 Temperature (Fahrenheit): 98.3 O2 Sat by Pulse Oximetry: 99 Airway: patent Nausea: No Vomiting: No Pain Intensity: 0 Hydration Status: adequate Cardiopulmonary Status: stable Mental Status/LOC: patient returned to baseline Post-Anesthesia Complications: none Follow-up care needed: N/A Mercy Baroen MD Feb 02, 2019 13:41
[2019-02-02] MEDS: oxyCODONE HCL/Acetaminophen 5/325mg ORAL PRN (15:05)
--- NOTE | 2019-02-02 16:23 | NUR ---
*-*INSURANCE *-* UPDATED CLINICALS AND REVIEW HAVE BEEN FAXED TO: [facility]#[phone]
--- NOTE | 2019-02-02 16:30 | Procedure Note ---
DATE OF PROCEDURE: 02/02/2019 SURGEON: Max Dozier M.D. PROCEDURE: Upper endoscopy with biopsy. ANESTHESIA: Per Dr. Carmona. INSTRUMENT: Olympus adult flexible upper endoscope. INDICATION: Nausea, vomiting, possible duodenal stricture. REASON FOR PROCEDURE: The procedure, risks, benefits, and possible consequences, including hemorrhage, aspiration, perforation and infection, and alternative treatments, were explained to the patient/legal guardian by Dr. Max Dozier and the patient/legal guardian understood and accepted these risks. DESCRIPTION OF PROCEDURE: After informed consent was obtained and the patient was adequately sedated, Olympus upper endoscope was advanced from mouth into the third portion of the duodenum and retroflexion was performed in the stomach. The patient has evidence of severe erosive esophagitis, most probably from chronic reflux. There was also evidence of distal esophageal ring. In the stomach, there is a Pickett at the G-tube site. There was minimum gastritis. Biopsy from the antrum was obtained. At this time, the scope was advanced to the duodenal bulb, then into the second portion of duodenum. We saw a diverticulum around the second portion of duodenum. Then, we passed the scope into the third portion of the duodenum. There was a little bit of kink and lumen in that area, but easily opened up with air, so at this time, we did not find any obvious tight stricture that will benefit from the balloon dilation. At this time, the scope was retrieved and procedure was terminated. SUMMARY OF FINDINGS: 1. Severe distal esophagitis. 2. Gastritis, status post biopsy. 3. Duodenal diverticulum. 4. Luminal narrowing in the third portion, which was easily opened with air, most likely from external compression, not a good candidate for dilation or stenting. RECOMMENDATIONS: Reflux measures. We will change the Protonix to twice a day. We will add Carafate for this bad severe esophagitis. Recommend follow up biopsy results and treat accordingly. We will recommend starting the patient on clear liquid diet and advance as tolerated. We will discuss with the surgeon. I want to thank Dr. Lars Sotomayor for this kind referral. Max Dozier M.D. DR: JENNIFFER JOB#: [id number] CC: Lars Sotomayor M.D.; Fax#: [phone]
[2019-02-02] MEDS ORDERED: NS Irrig 1000ml ONE (17:36)
--- NOTE | 2019-02-02 19:22 | NUR ---
HAND-OFF: Report given to Dallin Arias pt in stable condition. - Broke bag changed today around 14:00 with cycle specialist, until now no leakage noted. I will f/u as needed. I&O's Total ileo output: 350ml total GT: 450-80= 370ml urine: 1050 ml emesis: 175ml
--- NOTE | 2019-02-02 19:45 | NUR ---
NURSE NOTES: Patient in bed awake and oriented. VSS. No SOB noted. GT flushed per MD's order. Ileo appliance leaking changed with a new bag. In Room air. No Pain at this time. Needs attended. In stable condition. Call light within reach.
[2019-02-02] MEDS: Dyna-Hex 2% Top Sol 2oz TOPIC SCH (20:36)
[2019-02-02] MEDS: Fat Emulsion Iv 20% 216 ML in Tpn 1,560 ML IV SCH (20:41)
--- NOTE | 2019-02-02 21:14 | NUR ---
NURSE NOTES: Patient had an episode of vomiting. output is clear, 300cc. HOB elevated. Needs attended. Will continue to monitor.
[2019-02-03] VITALS: BP 133/80
[2019-02-03] MEDS: TraZODone HCl 25 mg tablet ORAL PRN ×2 (03:11→22:00)
[2019-02-03 04:00] VITALS: BP 140/81
[2019-02-03 05:19] LABS: BASOPHILS % (AUTO) 0.7 % (0.0-2.0); EOSINOPHILS % (AUTO) 4.3 % (0.0-3.0); HEMATOCRIT 31.1 % (37.0-47.0); HEMOGLOBIN 10.5 G/DL (12.0-16.0); LYMPHOCYTES % (AUTO) 16.7 % (20.0-45.0); MEAN CORPUSCULAR VOLUME 88 FL (80-99); MONOCYTES % (AUTO) 6.1 % (1.0-10.0); NEUTROPHILS % (AUTO) 72.3 % (45.0-75.0); PLATELET COUNT 397 K/UL (150-450); RED BLOOD COUNT 3.52 M/UL (4.20-5.40); RED CELL DISTRIBUTION WIDTH 14.7 % (11.6-14.8); WHITE BLOOD COUNT 8.7 K/UL (4.8-10.8)
[2019-02-03] MEDS: NovoLOG Insulin Flexpen SUBQ SCH ×5 (05:32→23:46)
[2019-02-03] MEDS: Lomotil 2.5mg tab ORAL SCH ×3 (05:33→16:00)
[2019-02-03] MEDS: Levothyroxine 125mcg tab ORAL SCH (05:33)
[2019-02-03 05:49] LABS: ALANINE AMINOTRANSFERASE 27 U/L (12-78); ALBUMIN 2.3 G/DL (3.4-5.0); ALBUMIN/GLOBULIN RATIO 0.5 (1.0-2.7); ALKALINE PHOSPHATASE 256 U/L (46-116); ANION GAP 9 mmol/L (5-15); ASPARTATE AMINO TRANSFERASE 21 U/L (15-37); BILIRUBIN,TOTAL 0.2 MG/DL (0.2-1.0); BLOOD UREA NITROGEN 28 mg/dL (7-18); CALCIUM 9.7 MG/DL (8.5-10.1); CARBON DIOXIDE 21 MMOL/L (21-32); CHLORIDE 103 MMOL/L (98-107); CREATININE 1.3 MG/DL (0.55-1.30); POTASSIUM 4.9 MMOL/L (3.5-5.1); SODIUM 133 MMOL/L (136-145)
[2019-02-03 06:29] LABS: PHOSPHORUS 3.7 MG/DL (2.5-4.9)
--- NOTE | 2019-02-03 07:37 | NUR ---
NURSE NOTES: Received report from Dallin Arias Pt a/a/o x4 laying in bed with no signs of distress. Broke ileostomy bag draining well with no leakage noted at this time. total manufacturing supervisor 2nd shift out put: 1200ml, total urine out put: 1000ml, GT bag draining to gravity, total out put: 340ml. per report pt had an episode of emesis total out put:200ml. surgical dressing open to air. call light within reach, bed in lowest position. side rales up x2. I will f/u as needed.
[2019-02-03 08:00] VITALS: BP 139/81
[2019-02-03] MEDS ORDERED: Vitamin B12 1000mcg/ml Inj IM SCH (09:00)
[2019-02-03] MEDS: Mycophenolate 250mg cap ORAL SCH ×2 (09:03→20:31)
[2019-02-03] MEDS: Sucralfate 1gm tab ORAL SCH ×5 (09:03→21:02)
[2019-02-03] MEDS: Pantoprazole Inj IVP SCH ×2 (09:07→20:31)
[2019-02-03] MEDS: Metoprolol Succinate XL 50mg tab ORAL SCH (09:07)
[2019-02-03] MEDS: Lisinopril 20mg tab ORAL SCH (09:07)
--- NOTE | 2019-02-03 11:13 | NUR ---
RD ASSESSMENT & RECOMMENDATIONS SEE CARE ACTIVITY FOR COMPLETE ASSESSMENT DAILY ESTIMATED NEEDS: Needs based on Surgery 59.8kg 25-30 kcals/kg 0328-2461 total kcals 1-2 g protein/kg 60-120 g total protein 25-30 mL/kg 3407-2361 total fluid mLs NUTRITION DIAGNOSIS: Altered GI fxn r/t h/o UC and malfunctioning kock pouch as evidenced by pt is s/p kock pouch takedown w/ creation of Yajaira ileo, now s/p ex lap, segmental small bowel resections and relocation of ileostomy, TPN at goal, diet now advanced to BCIR low residue, well tolerated at this time. CURRENT DIET:BCIR LOW RESIDUE PO DIET RECOMMENDATIONS: Diet per MD PARENTERAL NUTRITION RECOMMENDATIONS: D/AA Rate: 65 IL Rate: 9 Total Rate: 74 Volume: 1776 % Dextrose: 18 % AA: 5.5 Energy (kcals/kg): 1730 Protein (g/kg protein): 86 Nonprotein KCALS: 1386 GIR (mg CHO/kg/min): 3.3 % Fat KCALS: 25 NCP: N Ratio: 101:1 TPN Comment: - D18% + AA 5.5% @65ml/hr + 20% IL @9ml/hr - TPN at goal meets 100% est kcal/prot needs (29 kcal/kg and 1.4g prot/kg) -> monitor PO intake, taper down TPN w/ improved PO ADDITIONAL RECOMMENDATIONS: 1) Obtain a standing weight as pt is able to ambulate in halls 2) Monitor PO intake closely (BCIR low residue diet started on 02/02) -> taper down TPN w/ improved PO intake 3) Monitor lytes, replete as needed Monitor LFT's, BG, Lytes w/ TPN . .
--- NOTE | 2019-02-03 11:36 | GI Progress Note ---
Assessment/Plan Problems: (1) Malfunctioning Kock Pouch (2) History of liver transplant ICD Codes: Z94.4 - Liver transplant status SNOMED: [id number] Status: unchanged Status Narrative Discussed with Dr. Dozier. Assessment/Plan Assessment - Initial Kock pouch --> Yajaira ileostomy conversion 12/18 - s/p ex lap, SB resection, relocation of ostomy 01/04 - s/p lap and repair of wound dehis - past h/o PSC --> s/p OLT, on Prograf and Cellcept - malnutrition, depressed Albumin, on TPN - N/V - anemia - hypothyroid on replacement - s/p EGD SUMMARY OF FINDINGS: 1. Severe distal esophagitis. 2. Gastritis, status post biopsy. 3. Duodenal diverticulum. 4. Luminal narrowing in the third portion, which was easily opened with air, most likely from external compression, not a good candidate for dilation or stenting. RECOMMENDATIONS: Reflux measures. Protonix to twice a day. Carafate for this bad severe esophagitis. Recommend follow up biopsy results and treat accordingly. CLD, advance as tolerated Follow labs and replace lytes PRN Abx per ID monitor Prograf level, watch for Diflucan drug interaction TPN + IVF Elevate HOB The patient was seen and examined at bedside and all new and available data was reviewed in the patients chart. I agree with the above findings, impression and plan. (Patient seen earlier today. Signature stamp does not reflect patient encounter time.). - Max Dozier MD Subjective Subjective episode of emesis c/o nausea Objective Last 24 Hour Vital Signs Date Time Temp Pulse Resp B/P (MAP) Pulse Ox O2 Delivery O2 Flow Rate FiO2 02/03/19 09:07 108 139/81 02/03/19 09:07 139/81 02/03/19 09:06 108 139/81 02/03/19 04:00 97.9 101 18 140/81 (100) 99 02/03/19 00:00 98.2 100 20 133/80 (97) 98 02/02/19 21:00 Room Air 02/02/19 20:00 98.7 106 20 147/82 (103) 95 02/02/19 17:09 98 123/73 02/02/19 16:00 98.5 103 21 144/80 (101) 97 02/02/19 15:35 98.3 02/02/19 13:41 98 18 99 02/02/19 13:40 102 18 99 02/02/19 12:00 98.7 108 20 133/98 (110) 97 Intake and Output 02/02/19 02/03/19 19:00 07:00 Intake Total 2398 ml 1814 ml Output Total 1945 ml 2740 ml Balance 453 ml -926 ml Intake Oral 536 ml 400 ml IV Total 1862 ml 1414 ml Output Urine Total 1050 ml 1000 ml Emesis 175 ml 200 ml Other 720 ml 1540 ml # Voids 4 3 Laboratory Tests Test 02/03/19 04:50 White Blood Count 8.7 K/UL (4.8-10.8) Red Blood Count 3.52 M/UL (4.20-5.40) L Hemoglobin 10.5 G/DL (12.0-16.0) L Hematocrit 31.1 % (37.0-47.0) L Mean Corpuscular Volume 88 FL (80-99) Mean Corpuscular Hemoglobin 29.9 PG (27.0-31.0) Mean Corpuscular Hemoglobin Concent 33.9 G/DL (32.0-36.0) Red Cell Distribution Width 14.7 % (11.6-14.8) Platelet Count 397 K/UL (150-450) Mean Platelet Volume 5.5 FL (6.5-10.1) L Neutrophils (%) (Auto) 72.3 % (45.0-75.0) Lymphocytes (%) (Auto) 16.7 % (20.0-45.0) L Monocytes (%) (Auto) 6.1 % (1.0-10.0) Eosinophils (%) (Auto) 4.3 % (0.0-3.0) H Basophils (%) (Auto) 0.7 % (0.0-2.0) Sodium Level 133 MMOL/L (136-145) L Potassium Level 4.9 MMOL/L (3.5-5.1) Chloride Level 103 MMOL/L (98-107) Carbon Dioxide Level 21 MMOL/L (21-32) Anion Gap 9 mmol/L (5-15) Blood Urea Nitrogen 28 mg/dL (7-18) H Creatinine 1.3 MG/DL (0.55-1.30) Estimat Glomerular Filtration Rate 40.9 mL/min (>60) Glucose Level 158 MG/DL (74-106) H Calcium Level 9.7 MG/DL (8.5-10.1) Phosphorus Level 3.7 MG/DL (2.5-4.9) Magnesium Level 2.1 MG/DL (1.8-2.4) Total Bilirubin 0.2 MG/DL (0.2-1.0) Aspartate Amino Transf (AST/SGOT) 21 U/L (15-37) Alanine Aminotransferase (ALT/SGPT) 27 U/L (12-78) Alkaline Phosphatase 256 U/L (46-116) H Total Protein 7.2 G/DL (6.4-8.2) Albumin 2.3 G/DL (3.4-5.0) L Globulin 4.9 g/dL Albumin/Globulin Ratio 0.5 (1.0-2.7) L Vitamin B12 Level 440 PG/ML (193-986) Folate 13.7 NG/ML (8.6-58.9) Height (Feet): 5 Height (Inches): 4.00 Weight (Pounds): 134 General Appearance: no apparent distress Cardiovascular: normal rate Respiratory/Chest: normal breath sounds, no respiratory distress Abdominal Exam: normal bowel sounds, non tender, soft Extremities: non-tender Jeyson Luna FEATHER BALER Feb 03, 2019 11:36
--- NOTE | 2019-02-03 11:49 | General Progress Note ---
Progress Note Progress Note AVSS Tolerating small amounts of low residue diet. Still with 2 episodes of emesis Abdomen soft Ileostomy appliance intact now since yesterday - has peristomal skin excoriation - needs appliance with convexity po intake 900cc + 40% of meals Urine 2015 Gastrostomy 710 + emesis 375 = 1085 Ileostomy 1550 Na 133 K 4.9 BUN down 28 Cr 1.3 Phos 3.7 Mg 2.1 B12 440 Folic acid low 13.7 Imp. Resolving partial duodenal obstruction Plan: Gastrostomy 3:1 protocol and continue BCIR low residue diet with lomotil before each meal, and continue TPN B12 1mg IM; Folic acid 1mg po daily Observe I&O - may need additional lomotil for high volume ileostomy output/shortened bowel syndrome Lars Sotomayor MD Feb 03, 2019 11:49
[2019-02-03 12:00] VITALS: BP 136/82
--- NOTE | 2019-02-03 12:19 | NUR ---
CASE MANAGEMENT:REVIEW 02/03/19 SI: S/P RESECTION OF FAILED POUCH FOLLOWED BY MULTIPLE SURGERIES 98.9 108 18 139/81 96% ON RA H/H-10.5/31.1 BUN+28 IS: TPN/IL @ 74/HR IVF+KCL@50/HR IV PROTONIX Q12 CELLCEPT PO Q12 PROGRAF PO QHS CARAFATE PO QID TOPROL PO QD NORVASC PO BID : MED/SURG STATUS 3 [facility] PLAN: GASTROSTOMY 3:1 PROTOCOL
--- NOTE | 2019-02-03 13:59 | Infectious Diseases Prog Note ---
Assessment/Plan Assessment/Plan ASSESSMENT AND PLAN: 1. hx of leukocytosis, fevers, ? 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 infiltrated iv, ? cellulitis right arm - now resolved nausea and vomiting, partial duodenal obstruction - fluconazole based on jeff species is preferred drug especially in view of micafungin treatment prior to becoming fungemic - plan on 2 days more fluconazole for 2 weeks treatment post negative cultures - s/p post EGD per GI - note reviewed - surveillance blood cultures negative - monitor labs, leukocytosis and fevers resolved - on 2D echo - no vegetations mentioned per report 2. 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 3. Liver transplantation. 4. Sclerosing cholangitis. 5. Ulcerative colitis. 6. The patient is anemic. 7. History of cholecystectomy, appendectomy, hysterectomy, and proctocolectomy. 8. History of multiple abdominal operations. 9. Allergies to codeine, hydromorphone, metoclopramide, morphine, and sulfa. 10. Family doctor is Noncontributory. 11. Social history is negative. 12. MAR was noted. 13. Case discussed with RN. 14. Case discussed with the patient. 15. Continue treatment per Dr. Sotomayor and consultants. Subjective Constitutional: Denies: fever HEENT: Denies: congestion Respiratory: Denies: shortness of breath Cardiovascular: Denies: chest pain Gastrointestinal/Abdominal: Reports: nausea - less, vomiting - less; Denies: diarrhea Genitourinary: Reports: other - no morales Neurologic: Denies: headache Psychiatric: Denies: depression Skin: Denies: rash Hematologic: Denies: bleeding Musculoskeletal: Denies: pain Allergies: Coded Allergies: CODEINE (Verified Allergy, Severe, 12/17/18) Face contractions HYDROMORPHONE (Verified Allergy, Severe, Itching, 12/17/18) Itching whole body METOCLOPRAMIDE (Verified Allergy, Severe, 12/17/18) Face contractions MORPHINE (Verified Allergy, Severe, Shortness of Breath, 12/17/18) SULFA (SULFONAMIDE ANTIBIOTICS) (Verified Allergy, Severe, 12/17/18) Face contractions Objective Vital Signs Last 24 Hour Vital Signs Date Time Temp Pulse Resp B/P (MAP) Pulse Ox O2 Delivery O2 Flow Rate FiO2 02/03/19 12:00 99.3 107 19 136/82 (100) 97 02/03/19 09:07 108 139/81 02/03/19 09:07 139/81 02/03/19 09:06 108 139/81 02/03/19 09:00 Room Air 02/03/19 08:00 98.9 108 18 139/81 (100) 96 02/03/19 04:00 97.9 101 18 140/81 (100) 99 02/03/19 00:00 98.2 100 20 133/80 (97) 98 02/02/19 21:00 Room Air 02/02/19 20:00 98.7 106 20 147/82 (103) 95 02/02/19 17:09 98 123/73 02/02/19 16:00 98.5 103 21 144/80 (101) 97 02/02/19 15:35 98.3 Height (Feet): 5 Height (Inches): 4.00 Weight (Pounds): 134 General Appearance: no acute distress HEENT: normocephalic, atraumatic, anicteric, mucous membranes moist Respiratory/Chest: lungs clear, normal breath sounds, no respiratory distress, no accessory muscle use Cardiovascular: normal rate, regular rhythm, no gallop/murmur, no JVD Abdomen: normal bowel sounds, soft, non tender, no organomegaly, non distended Genitourinary: other - no morales Extremities: no cyanosis Skin: no rash 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 Evidence of total colectomy. Right lower abdominal wall ostomy is new since prior study. Previously seen left lower quadrant ostomy has been taken down. 2. Prominent proximal duodenum narrowing between the SMA and aorta. Query SMA syndrome. 3. Left lower abdominal wall percutaneous drainage catheter with tip in the right anterior lower abdomen. There is 3.6 x 6 cm fluid collection in the anterior lower pelvis and another loculated 2.8 x 3 cm collection to the right, likely connecting. There are surgical clips associated with the fluid collections and this may be unopacified patulous small bowel, limited as the oral contrast has not reached the distal small bowel loops. Consider delayed imaging. 4. Smaller loculated fluid with small air bubbles in the pelvis, likely due to recent postop changes, cannot exclude fistula or leak. 5. Anterior abdominal wall vertical incision with small fluid along the incision in the subcutaneous soft tissue. 6. Percutaneous gastrostomy tube. 7. Tiny bilateral nonobstructive renal stones. No ureteral stone or renal obstruction. CT abdomen and pelvis - 12/26/18 - Status post recent abdominal surgery with creation of a left lower quadrant Yajaira ileostomy. Good bowel and bag opacification with no evidence of bowel obstruction. Unusual, markedly distended unopacified loop of bowel in the pelvis. Although unopacified, this does not appear to be an abscess as there is a wall and other characteristics more in keeping with bowel. Would consider a large diverticulum or possibly remnant of the previous Kock pouch or part of the small bowel leading to the old pouch as those segments are sometimes quite distended. Status post liver transplant. Status post cholecystectomy. Mild basal atelectasis. Chest x-ray - no pna, report noted CT abdomen/pelvis - 12/30/18 - Impression: Postsurgical changes, as described Unusual tubular structure filled mostly with gas but also some fluid communicating with the small bowel at the site of a right lower quadrant enteroenterostomy. Uncertain as to whether this represents an unusual large diverticulum, a true extraluminal gas collection, or a portion of an old continent ileostomy pouch. This is also previously described Dilated proximal small bowel proximal to the enteroenterostomy with slow forward propulsion of contents. Partial small bowel obstruction not completely excludable although unlikely given evidence of forward propulsion of contrast and filling of the ileostomy on prior 12/26/2018 exam; findings most likely functional in nature. Correlate with clinical findings Small anterior pelvic and deep pelvic fluid pockets, most likely represent retained postoperative fluid collections. Abscess as etiology of any of these not completely excludable; correlation with clinical findings recommended Postsurgical changes of the liver status post transplantation Punctate nonobstructing bilateral intrarenal calculi Bilateral basilar pulmonary parenchymal atelectasis and/or scarring Chest x-ray - 01/07/19 - Images previously reviewed in person with Dr. Sotomayor Interval placement of a right transjugular central line, catheter tip in the region of the high right atrium. Left arm PICC line remains in place with the catheter tip at the cavoatrial junction. No evidence of pneumothorax. No definite focal airspace consolidation or pleural effusion. Surgical clips noted projecting over the upper abdomen. Microbiology Date/Time Source Procedure Growth Status 01/21/19 04:40 Blood Blood Culture - Final NO GROWTH AFTER 5 DAYS Complete 01/28/19 09:10 Stool Clostridium difficile Toxin Assay - Final Complete 01/17/19 19:14 Indwelling Cath Urine Culture - Final Jeff Parapsilosis Complete 01/06/19 22:30 Abdominal Fluid Gram Stain - Final Complete 01/06/19 22:30 Body Fluid Culture - Final Jeff Albicans Complete Laboratory Tests Test 02/03/19 04:50 White Blood Count 8.7 K/UL (4.8-10.8) Red Blood Count 3.52 M/UL (4.20-5.40) L Hemoglobin 10.5 G/DL (12.0-16.0) L Hematocrit 31.1 % (37.0-47.0) L Mean Corpuscular Volume 88 FL (80-99) Mean Corpuscular Hemoglobin 29.9 PG (27.0-31.0) Mean Corpuscular Hemoglobin Concent 33.9 G/DL (32.0-36.0) Red Cell Distribution Width 14.7 % (11.6-14.8) Platelet Count 397 K/UL (150-450) Mean Platelet Volume 5.5 FL (6.5-10.1) L Neutrophils (%) (Auto) 72.3 % (45.0-75.0) Lymphocytes (%) (Auto) 16.7 % (20.0-45.0) L Monocytes (%) (Auto) 6.1 % (1.0-10.0) Eosinophils (%) (Auto) 4.3 % (0.0-3.0) H Basophils (%) (Auto) 0.7 % (0.0-2.0) Sodium Level 133 MMOL/L (136-145) L Potassium Level 4.9 MMOL/L (3.5-5.1) Chloride Level 103 MMOL/L (98-107) Carbon Dioxide Level 21 MMOL/L (21-32) Anion Gap 9 mmol/L (5-15) Blood Urea Nitrogen 28 mg/dL (7-18) H Creatinine 1.3 MG/DL (0.55-1.30) Estimat Glomerular Filtration Rate 40.9 mL/min (>60) Glucose Level 158 MG/DL (74-106) H Calcium Level 9.7 MG/DL (8.5-10.1) Phosphorus Level 3.7 MG/DL (2.5-4.9) Magnesium Level 2.1 MG/DL (1.8-2.4) Total Bilirubin 0.2 MG/DL (0.2-1.0) Aspartate Amino Transf (AST/SGOT) 21 U/L (15-37) Alanine Aminotransferase (ALT/SGPT) 27 U/L (12-78) Alkaline Phosphatase 256 U/L (46-116) H Total Protein 7.2 G/DL (6.4-8.2) Albumin 2.3 G/DL (3.4-5.0) L Globulin 4.9 g/dL Albumin/Globulin Ratio 0.5 (1.0-2.7) L Vitamin B12 Level 440 PG/ML (193-986) Folate 13.7 NG/ML (8.6-58.9) Current Medications Medications (Trade) Dose Ordered Sig/Kajal Route PRN Reason Start Time Stop Time Status Last Admin Dose Admin Acetaminophen (Tylenol) 650 mg Q6H PRN ORAL headache 01/14/19 09:00 02/13/19 08:59 Al Hydroxide/Mg Hydroxide (Mylanta) 30 ml Q4H PRN ORAL dyspepsia 01/29/19 08:00 02/28/19 07:59 02/01/19 00:22 Amlodipine Besylate (Norvasc) 5 mg BID ORAL 02/01/19 09:00 02/21/19 23:59 02/03/19 09:06 Chlorhexidine Gluconate (Yulia-Hex 2%) 1 applic DAILY@1999 TOPIC 01/22/19 20:00 02/21/19 19:59 02/02/19 20:36 Clonidine HCl (Catapres Tab) 0.1 mg Q6H PRN SL SBP>150 mmHg 01/29/19 08:45 02/07/19 08:44 01/31/19 00:33 Dextrose 1,000 ml @ 0 mls/hr Q24H PRN IV PN interrupted or unavailable 01/22/19 20:00 02/21/19 19:59 Dextrose (Dextrose 50%) 25 ml Q30M PRN IV Hypoglycemia 01/22/19 11:30 02/21/19 11:29 Dextrose (Dextrose 50%) 50 ml Q30M PRN IV Hypoglycemia 01/22/19 11:30 02/21/19 11:29 Diphenhydramine HCl (Benadryl) 50 mg Q4H PRN ORAL Itching 01/25/19 18:00 02/08/19 17:59 01/29/19 20:58 Diphenoxylate HCl/ Atropine (Lomotil) 2.5 mg BEFORE MEALS ORAL 02/02/19 12:00 03/04/19 11:59 02/03/19 12:09 Fat Emulsion Intravenous 216 ml/Amino Acids/ Electrolytes/ Dextrose 1,776 ml @ 74 mls/hr Q24H IV 01/25/19 20:00 02/24/19 19:59 02/02/19 20:41 Fluconazole/ Sodium Chloride 200 ml @ 200 mls/hr Q24H IV 01/30/19 17:00 02/06/19 16:59 02/02/19 16:29 Folic Acid (Folate) 1 mg DAILY ORAL 02/03/19 09:00 03/05/19 08:59 02/03/19 09:07 Heparin Sodium/ Sodium Chloride (Heparin 1000 units/500ml Premix) 1,000 unit ONCE PRN IV PICC PLACEMENT 01/22/19 11:30 02/21/19 11:29 Insulin Aspart (NovoLOG) Q6HR SUBQ 01/23/19 00:00 02/22/19 00:00 02/03/19 12:14 Levothyroxine Sodium (Synthroid) 125 mcg DAILY@0630 ORAL 01/24/19 06:30 02/23/19 06:29 02/03/19 05:33 Lidocaine HCl (Xylocaine Jelly 2%) 1 applic Q3H PRN TOPIC BURNING AROUND MEATUS 01/14/19 17:15 02/13/19 17:14 01/17/19 12:50 Lisinopril (Prinivil) 40 mg DAILY ORAL 01/29/19 09:00 02/15/19 08:59 02/03/19 09:07 Metoprolol Succinate (Toprol XL) 50 mg DAILY ORAL 02/01/19 09:00 02/28/19 11:59 02/03/19 09:07 Mycophenolate Mofetil (Cellcept) 750 mg Q12HR ORAL 01/31/19 21:00 02/28/19 00:00 02/03/19 09:03 Naloxone HCl (Narcan) 0.1 mg PRN IV Sedation scale 3 or 4 02/01/19 13:30 03/03/19 13:29 Ondansetron HCl (Zofran) 4 mg Q6H PRN IVP Nausea & Vomiting FIRST CHOICE 01/31/19 13:00 02/08/19 12:59 02/03/19 08:54 Oxycodone/ Acetaminophen (Percocet 5-325) 1 tab Q4H PRN ORAL For Pain 02/01/19 09:00 02/08/19 08:59 02/02/19 15:05 Pantoprazole (Protonix) 40 mg EVERY 12 HOURS IVP 02/02/19 09:30 03/04/19 09:29 02/03/19 09:07 Phytonadione (Vitamin K) 10 mg ONCE A WEEK SUBQ 01/22/19 12:00 02/21/19 11:59 01/29/19 12:43 Potassium Chloride/Sodium Chloride 1,000 ml @ 50 mls/hr Q20H IV 01/31/19 11:00 02/28/19 10:59 02/02/19 20:37 Prochlorperazine (Compazine) 10 mg Q6H PRN IVP Nausea & Vomiting 01/22/19 15:30 02/21/19 15:17 02/02/19 23:33 Sucralfate (Carafate) 1 gm FOUR TIMES A DAY ORAL 02/02/19 13:00 03/04/19 12:59 02/03/19 12:09 Tacrolimus (Prograf) 1 mg DAILY ORAL 02/03/19 09:00 02/25/19 08:59 02/03/19 09:03 Tacrolimus (Prograf) 2 mg BEDTIME ORAL 02/02/19 21:00 02/06/19 20:59 02/02/19 20:36 Trazodone HCl (Desyrel) 25 mg HSPRN PRN ORAL INSOMNIA 02/01/19 08:45 02/23/19 08:44 02/03/19 03:11 Philly Shelby MD Feb 03, 2019 13:59
[2019-02-03] MEDS: oxyCODONE HCL/Acetaminophen 5/325mg ORAL PRN (14:17)
--- NOTE | 2019-02-03 15:02 | Cardiology Progress Note ---
Assessment/Plan Status: progressing Status Narrative 1. Malfunctioning Kock pouch continent ileostomy. 2. History of ulcerative colitis. 3. History of primary sclerosing cholangitis. 4. Status post multiple abdominal operations. 4.1. Appendectomy in 1964. 4.2. Proctocolectomy and Kock pouch in 1978. 4.3. Total abdominal hysterectomy and bilateral salpingo-oophorectomy 1983 4.4. Cholecystectomy in 1985. 4.5. Orthotopic liver transplantation in 1999. 4.6. Revision of Kock pouch and repair of fistula in 2010. HTN- New onset- Controlled on Norvasc /Lisinopril and Metoprolol Tachycardia- probably due to volume depletion Renal insuff- Most probably due volume depletion ( High GT output), - Creat 1.3 Volume depletion- high GT output- Esophagitis Duodenal narrowing improving Vomiting -? GI hypomobility HTN better controlled Assessment/Plan Metoprolol 25 mg QD Zestril 40 mg QD. Norvasc 5 mg BID Monitor BP TPN and Peripheral IV - taper as per Dr. Sotomayor Diet as per DR. Sotomayor Increase activity Meals in chair Will need BP meds upon DC- will give Rx prior to DC. Continue current management Hoping for DC soon Discussed with RN. Subjective Cardiovascular: Reports: no symptoms; Denies: chest pain Respiratory: Reports: no symptoms; Denies: shortness of breath Gastrointestinal/Abdominal: Reports: diarrhea, vomiting Genitourinary: Reports: no symptoms Subjective Still NPO vomiting x1 today Having out put from ileostomy Has been out of bed, ambulated. Pain controlled Creat 1.3 High output from GT- now being plugged Q2h S/P EGD today- showed gastriris/esophagitis with mid duodenal narrowing 01/21/19- had Gatrografin UGI study, increased ileostomy output. No vomiting today. 01/22/10- has tolerated clear liquids, had vomiting x1 this morning. 01/23- Started on solid food 01/24- Vomited after breakfast, and lunch- TPN @74 cc/h, IV @ 70 cc/h 01/26- No vomiting today, tolerated solids, still on TPN 01/29 Small amount of vomiting earlier, has tolerated her lunch 01/30- Had CT done- showing persistent duodenal narrowing, Has had vmiting, high GT utput. IOs negative, Creat 1.3, HR 117 02/01- NPO, no Vomiting, scheduled for EGD in AM 02/02- s/p EGD today- duodenal narrowing improving, started on diet, 02/03- tolerating solids, had vomiting x2, on Lolomtil, ambulating, still on TPN , IV fluids. Creat 1.3 Objective Last 24 Hour Vital Signs Date Time Temp Pulse Resp B/P (MAP) Pulse Ox O2 Delivery O2 Flow Rate FiO2 02/03/19 12:00 99.3 107 19 136/82 (100) 97 02/03/19 09:07 108 139/81 02/03/19 09:07 139/81 02/03/19 09:06 108 139/81 02/03/19 09:00 Room Air 02/03/19 08:00 98.9 108 18 139/81 (100) 96 02/03/19 04:00 97.9 101 18 140/81 (100) 99 02/03/19 00:00 98.2 100 20 133/80 (97) 98 02/02/19 21:00 Room Air 02/02/19 20:00 98.7 106 20 147/82 (103) 95 02/02/19 17:09 98 123/73 02/02/19 16:00 98.5 103 21 144/80 (101) 97 02/02/19 15:35 98.3 Cardiovascular: no gallop/murmur, tachycardia Respiratory/Chest: lungs clear Abdomen: normal bowel sounds, non tender, other - with watery output and some solids Extremities: non-tender, normal inspection, no calf tenderness, no swelling Neurologic: no Babinski Intake and Output 02/02/19 02/03/19 19:00 07:00 Intake Total 2398 ml 1814 ml Output Total 1945 ml 2740 ml Balance 453 ml -926 ml Intake Oral 536 ml 400 ml IV Total 1862 ml 1414 ml Output Urine Total 1050 ml 1000 ml Emesis 175 ml 200 ml Other 720 ml 1540 ml # Voids 4 3 Laboratory Tests Test 02/03/19 04:50 White Blood Count 8.7 K/UL (4.8-10.8) Red Blood Count 3.52 M/UL (4.20-5.40) L Hemoglobin 10.5 G/DL (12.0-16.0) L Hematocrit 31.1 % (37.0-47.0) L Mean Corpuscular Volume 88 FL (80-99) Mean Corpuscular Hemoglobin 29.9 PG (27.0-31.0) Mean Corpuscular Hemoglobin Concent 33.9 G/DL (32.0-36.0) Red Cell Distribution Width 14.7 % (11.6-14.8) Platelet Count 397 K/UL (150-450) Mean Platelet Volume 5.5 FL (6.5-10.1) L Neutrophils (%) (Auto) 72.3 % (45.0-75.0) Lymphocytes (%) (Auto) 16.7 % (20.0-45.0) L Monocytes (%) (Auto) 6.1 % (1.0-10.0) Eosinophils (%) (Auto) 4.3 % (0.0-3.0) H Basophils (%) (Auto) 0.7 % (0.0-2.0) Sodium Level 133 MMOL/L (136-145) L Potassium Level 4.9 MMOL/L (3.5-5.1) Chloride Level 103 MMOL/L (98-107) Carbon Dioxide Level 21 MMOL/L (21-32) Anion Gap 9 mmol/L (5-15) Blood Urea Nitrogen 28 mg/dL (7-18) H Creatinine 1.3 MG/DL (0.55-1.30) Estimat Glomerular Filtration Rate 40.9 mL/min (>60) Glucose Level 158 MG/DL (74-106) H Calcium Level 9.7 MG/DL (8.5-10.1) Phosphorus Level 3.7 MG/DL (2.5-4.9) Magnesium Level 2.1 MG/DL (1.8-2.4) Total Bilirubin 0.2 MG/DL (0.2-1.0) Aspartate Amino Transf (AST/SGOT) 21 U/L (15-37) Alanine Aminotransferase (ALT/SGPT) 27 U/L (12-78) Alkaline Phosphatase 256 U/L (46-116) H Total Protein 7.2 G/DL (6.4-8.2) Albumin 2.3 G/DL (3.4-5.0) L Globulin 4.9 g/dL Albumin/Globulin Ratio 0.5 (1.0-2.7) L Vitamin B12 Level 440 PG/ML (193-986) Folate 13.7 NG/ML (8.6-58.9) Micha Ziegler MD Feb 03, 2019 15:02
[2019-02-03 16:00] VITALS: BP 135/79
--- NOTE | 2019-02-03 16:48 | NUR ---
P.T Weekly Progress Notes: Pt progressing well in P.T . Pt reports Less to zero pain symptoms during functional mobilities this past week however still reports of generalized weakness. Pt currently is independent with bed mobilities , SBA/Supervision with transfers and ambulates and tolerated average distance of 250 ft with SBA/supervision using the FWW. Will continue with POC for further strengthening and achieve full independence in ADL/functional mobilities.
--- NOTE | 2019-02-03 19:30 | NUR ---
NURSE NOTES: Received report from PATRICK Graves. Received pt AOx4, laying in bed with no signs of distress, denies pain at this time. Broke ileostomy bag draining well with no leakage noted at this time. Surgical dressing open to air, C/D/I. Piccline patent and intact. IV fluid and TPN infusing as ordered. call light within reach, bed in lowest position. side rales up x 2. Will continue to monitor.
--- NOTE | 2019-02-03 19:44 | NUR ---
HAND-OFF: Report given to Dallin Mohr pt in stable condition. During my shift patient was able to ambulate around the unit with physical therapy. - After changed ileostomy bag around 14:00 no leakage has been noted until now. I&O's Ileostomy: 275ml GT: 300-15=313mi urine: 1000ml
[2019-02-03 20:00] VITALS: BP 144/77
[2019-02-03] MEDS: Dyna-Hex 2% Top Sol 2oz TOPIC SCH (20:31)
[2019-02-03] MEDS: NS w/KCl 40mEq 1,000 ML IV SCH (20:31)
--- NOTE | 2019-02-03 20:40 | NUR ---
NURSE NOTES: Vomitted 100cc of yellowish bile emesis. Offered Zofran for nausea, pt refused. Pt preferred compazine medication. Compazine 10mg given. Will continue to monitor.
[2019-02-03] MEDS: Fat Emulsion Iv 20% 216 ML in Tpn 1,560 ML IV SCH (20:42)
--- NOTE | 2019-02-03 22:00 | NUR ---
NURSE NOTES: G-tube connected continuously to drainage bag per MD order.
[2019-02-04 05:16] LABS: EOSINOPHILS % (AUTO) 6.9 % (0.0-3.0); HEMATOCRIT 32.3 % (37.0-47.0); HEMOGLOBIN 10.6 G/DL (12.0-16.0); LYMPHOCYTES % (AUTO) 20.4 % (20.0-45.0); MEAN CORPUSCULAR VOLUME 89 FL (80-99); MONOCYTES % (AUTO) 5.1 % (1.0-10.0); NEUTROPHILS % (AUTO) 66.6 % (45.0-75.0); PLATELET COUNT 406 K/UL (150-450); RED BLOOD COUNT 3.63 M/UL (4.20-5.40); RED CELL DISTRIBUTION WIDTH 14.7 % (11.6-14.8)
[2019-02-04 05:45] LABS: ALANINE AMINOTRANSFERASE 26 U/L (12-78); ALBUMIN 2.4 G/DL (3.4-5.0); ALBUMIN/GLOBULIN RATIO 0.5 (1.0-2.7); ALKALINE PHOSPHATASE 266 U/L (46-116); ANION GAP 7 mmol/L (5-15); ASPARTATE AMINO TRANSFERASE 24 U/L (15-37); BILIRUBIN,TOTAL 0.2 MG/DL (0.2-1.0); BLOOD UREA NITROGEN 28 mg/dL (7-18); CALCIUM 9.7 MG/DL (8.5-10.1); CARBON DIOXIDE 21 MMOL/L (21-32); CHLORIDE 104 MMOL/L (98-107); CREATININE 1.3 MG/DL (0.55-1.30); POTASSIUM 4.9 MMOL/L (3.5-5.1); SODIUM 132 MMOL/L (136-145)
[2019-02-04] MEDS: Lomotil 2.5mg tab ORAL SCH ×4 (05:53→20:26)
[2019-02-04] MEDS: Levothyroxine 125mcg tab ORAL SCH (05:53)
[2019-02-04] MEDS: NovoLOG Insulin Flexpen SUBQ SCH ×4 (05:57→23:26)
[2019-02-04 06:00] VITALS: BP 143/78
--- NOTE | 2019-02-04 07:30 | NUR ---
HAND-OFF: Report given to PATRICK Henning. Pt in stable condition. No leakage noted on Ileostomy bag.
--- NOTE | 2019-02-04 07:55 | NUR ---
NURSE NOTES: awake/alert. no c/o pain. ileostomy bag intact,no leaking noted. gtube plugged continously as ordered. instructed pt to let nurse know if c/o nausea.
[2019-02-04 08:00] VITALS: BP 155/85
--- NOTE | 2019-02-04 08:03 | NUR ---
NURSE NOTES: C/O NAUSEA JUST AFTER GTUBE PLUG. RECONNECTED TO DRAINAGE. ZOFRAN 4MG GIVEN IV ORDERED. WILL MONITOR PT.
--- NOTE | 2019-02-04 08:27 | General Progress Note ---
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, on Prograf and Cellcept - malnutrition, depressed Albumin, on TPN - N/V - anemia - hypothyroid on replacement -severe esophagitis Recommendations - Follow labs and replace lytes PRN - Abx per ID - monitor Prograf level, watch for Diflucan drug interaction - Continue TPN, - Elevate HOB - Wound care - continue ppi BID reflux measures will dc Carafate too big of pill for the patient to take consider dc GT if recommended by surg fu labs cont tpn Subjective ROS Limited/Unobtainable: Yes Allergies: Coded Allergies: CODEINE (Verified Allergy, Severe, 12/17/18) Face contractions HYDROMORPHONE (Verified Allergy, Severe, Itching, 12/17/18) Itching whole body METOCLOPRAMIDE (Verified Allergy, Severe, 12/17/18) Face contractions MORPHINE (Verified Allergy, Severe, Shortness of Breath, 12/17/18) SULFA (SULFONAMIDE ANTIBIOTICS) (Verified Allergy, Severe, 12/17/18) Face contractions Subjective feeling much better Objective Last 24 Hour Vital Signs Date Time Temp Pulse Resp B/P (MAP) Pulse Ox O2 Delivery O2 Flow Rate FiO2 02/04/19 08:00 98.8 101 20 155/85 (108) 95 02/04/19 06:00 99.0 18 143/78 (99) 98 02/03/19 21:00 Room Air 02/03/19 20:00 98.8 99 17 144/77 (99) 96 02/03/19 17:40 102 135/79 02/03/19 16:00 99.0 102 19 135/79 (97) 97 02/03/19 14:47 99.3 02/03/19 12:00 99.3 107 19 136/82 (100) 97 02/03/19 09:07 108 139/81 02/03/19 09:07 139/81 02/03/19 09:06 108 139/81 02/03/19 09:00 Room Air Intake and Output 02/03/19 02/04/19 18:59 06:59 Intake Total 1714 ml 1588 ml Output Total 1535 ml 2030 ml Balance 179 ml -442 ml Intake Oral 500 ml 200 ml IV Total 1214 ml 1388 ml Output Urine Total 1000 ml 1200 ml Gastric Drainage Total 280 ml Emesis 100 ml Other 535 ml 450 ml # Voids 4 Laboratory Tests 02/04/19 04:45: White Blood Count 7.0, Red Blood Count 3.63L, Hemoglobin 10.6L, Hematocrit 32.3L , Mean Corpuscular Volume 89, Mean Corpuscular Hemoglobin 29.3, Mean Corpuscular Hemoglobin Concent 33.0, Red Cell Distribution Width 14.7, Platelet Count 406, Mean Platelet Volume 5.5L, Neutrophils (%) (Auto) 66.6, Lymphocytes ( %) (Auto) 20.4, Monocytes (%) (Auto) 5.1, Eosinophils (%) (Auto) 6.9H, Basophils (%) (Auto) 1.0, Sodium Level 132L, Potassium Level 4.9, Chloride Level 104, Carbon Dioxide Level 21, Anion Gap 7, Blood Urea Nitrogen 28H, Creatinine 1.3, Estimat Glomerular Filtration Rate 40.9, Glucose Level 164H, Calcium Level 9.7, Total Bilirubin 0.2, Aspartate Amino Transf (AST/SGOT) 24, Alanine Aminotransferase (ALT/SGPT) 26, Alkaline Phosphatase 266H, Total Protein 7.3, Albumin 2.4L, Globulin 4.9, Albumin/Globulin Ratio 0.5L Height (Feet): 5 Height (Inches): 4.00 Weight (Pounds): 135 General Appearance: alert EENT: normal ENT inspection Neck: supple Cardiovascular: normal rate Respiratory/Chest: decreased breath sounds Abdomen: soft, other - ileostomy bag in place Max Dozier MD Feb 04, 2019 08:27
[2019-02-04] MEDS: Lisinopril 20mg tab ORAL SCH (08:50)
[2019-02-04] MEDS: Metoprolol Succinate XL 50mg tab ORAL SCH (08:51)
[2019-02-04] MEDS: Mycophenolate 250mg cap ORAL SCH ×2 (08:51→20:26)
[2019-02-04] MEDS: Pantoprazole Inj IVP SCH (08:51)
--- NOTE | 2019-02-04 09:00 | NUR ---
NURSE NOTES: FELT BETTER. GTUBE REPLUGGED. WILL CONTINUE TO MONITOR PT.
[2019-02-04 12:00] VITALS: BP 113/69
--- NOTE | 2019-02-04 13:02 | NUR ---
CASE MANAGEMENT:REVIEW 02/04/19 SI: S/P RESECTION OF FAILED POUCH FOLLOWED BY MULTIPLE SURGERIES 98.5 104 21 113/69 99% ON RA H/H-10.6/32.3 IS: TPN/IL @ 74/HR IVF+KCL@50/HR IV PROTONIX Q12 CELLCEPT PO Q12 PROGRAF PO QHS LOMOTIL PO BEFORE MEALS TOPROL PO QD NORVASC PO BID : MED/SURG STATUS 3 [place]:
--- NOTE | 2019-02-04 14:46 | Cardiology Progress Note ---
Assessment/Plan Status Narrative 1. Malfunctioning Kock pouch continent ileostomy. 2. History of ulcerative colitis. 3. History of primary sclerosing cholangitis. 4. Status post multiple abdominal operations. 4.1. Appendectomy in 1964. 4.2. Proctocolectomy and Kock pouch in 1978. 4.3. Total abdominal hysterectomy and bilateral salpingo-oophorectomy 1983 4.4. Cholecystectomy in 1985. 4.5. Orthotopic liver transplantation in 1999. 4.6. Revision of Kock pouch and repair of fistula in 2010. HTN- New onset- Controlled on Norvasc /Lisinopril and Metoprolol Tachycardia- probably due to volume depletion Renal insuff- Most probably due volume depletion ( High GT output), - Creat 1.3 Volume depletion- high GT output- Esophagitis Duodenal narrowing improving Vomiting -? GI hypomobility HTN better controlled Assessment/Plan Metoprolol 25 mg QD Zestril 40 mg QD. Norvasc 5 mg BID Monitor BP TPN and Peripheral IV - taper as per Dr. Sotomayor Diet as per DR. Sotomayor Increase activity Meals in chair Will need BP meds upon DC- will give Rx prior to DC. Continue current management Hoping for DC soon Discussed with RN. Subjective Cardiovascular: Reports: no symptoms Respiratory: Reports: no symptoms Gastrointestinal/Abdominal: Reports: diarrhea; Denies: vomiting Genitourinary: Reports: no symptoms Subjective Still NPO vomiting x1 today Having out put from ileostomy Has been out of bed, ambulated. Pain controlled Creat 1.3 High output from GT- now being plugged Q2h S/P EGD today- showed gastriris/esophagitis with mid duodenal narrowing 01/21/19- had Gatrografin UGI study, increased ileostomy output. No vomiting today. 01/22/10- has tolerated clear liquids, had vomiting x1 this morning. 01/23- Started on solid food 01/24- Vomited after breakfast, and lunch- TPN @74 cc/h, IV @ 70 cc/h 01/26- No vomiting today, tolerated solids, still on TPN 01/29 Small amount of vomiting earlier, has tolerated her lunch 01/30- Had CT done- showing persistent duodenal narrowing, Has had vmiting, high GT utput. IOs negative, Creat 1.3, HR 117 10/13- NPO, no Vomiting, scheduled for EGD in AM 02/02- s/p EGD today- duodenal narrowing improving, started on diet, 02/03- tolerating solids, had vomiting x2, on Lolomtil, ambulating, still on TPN , IV fluids. Creat 1.3 02/04- ambulating, no vomiting still on TPN and IV fluids . Creat 1.3 Objective Last 24 Hour Vital Signs Date Time Temp Pulse Resp B/P (MAP) Pulse Ox O2 Delivery O2 Flow Rate FiO2 02/04/19 12:00 98.5 104 21 113/69 (84) 99 02/04/19 09:27 Room Air 02/04/19 08:51 101 155/85 02/04/19 08:51 155/85 02/04/19 08:50 101 155/85 02/04/19 08:50 155/85 02/04/19 08:00 98.8 101 20 155/85 (108) 95 02/04/19 06:00 99.0 18 143/78 (99) 98 02/03/19 21:00 Room Air 02/03/19 20:00 98.8 99 17 144/77 (99) 96 02/03/19 17:40 102 135/79 02/03/19 16:00 99.0 102 19 135/79 (97) 97 02/03/19 14:47 99.3 Intake and Output 02/03/19 02/04/19 19:00 07:00 Intake Total 1788 ml 1564 ml Output Total 1535 ml 2030 ml Balance 253 ml -466 ml Intake Oral 500 ml 200 ml IV Total 1288 ml 1364 ml Output Urine Total 1000 ml 1200 ml Gastric Drainage Total 280 ml Emesis 100 ml Other 535 ml 450 ml # Voids 4 Laboratory Tests Test 02/04/19 04:45 White Blood Count 7.0 K/UL (4.8-10.8) Red Blood Count 3.63 M/UL (4.20-5.40) L Hemoglobin 10.6 G/DL (12.0-16.0) L Hematocrit 32.3 % (37.0-47.0) L Mean Corpuscular Volume 89 FL (80-99) Mean Corpuscular Hemoglobin 29.3 PG (27.0-31.0) Mean Corpuscular Hemoglobin Concent 33.0 G/DL (32.0-36.0) Red Cell Distribution Width 14.7 % (11.6-14.8) Platelet Count 406 K/UL (150-450) Mean Platelet Volume 5.5 FL (6.5-10.1) L Neutrophils (%) (Auto) 66.6 % (45.0-75.0) Lymphocytes (%) (Auto) 20.4 % (20.0-45.0) Monocytes (%) (Auto) 5.1 % (1.0-10.0) Eosinophils (%) (Auto) 6.9 % (0.0-3.0) H Basophils (%) (Auto) 1.0 % (0.0-2.0) Sodium Level 132 MMOL/L (136-145) L Potassium Level 4.9 MMOL/L (3.5-5.1) Chloride Level 104 MMOL/L (98-107) Carbon Dioxide Level 21 MMOL/L (21-32) Anion Gap 7 mmol/L (5-15) Blood Urea Nitrogen 28 mg/dL (7-18) H Creatinine 1.3 MG/DL (0.55-1.30) Estimat Glomerular Filtration Rate 40.9 mL/min (>60) Glucose Level 164 MG/DL (74-106) H Calcium Level 9.7 MG/DL (8.5-10.1) Total Bilirubin 0.2 MG/DL (0.2-1.0) Aspartate Amino Transf (AST/SGOT) 24 U/L (15-37) Alanine Aminotransferase (ALT/SGPT) 26 U/L (12-78) Alkaline Phosphatase 266 U/L (46-116) H Total Protein 7.3 G/DL (6.4-8.2) Albumin 2.4 G/DL (3.4-5.0) L Globulin 4.9 g/dL Albumin/Globulin Ratio 0.5 (1.0-2.7) L Micha Ziegler MD Feb 04, 2019 14:46
--- NOTE | 2019-02-04 14:47 | General Progress Note ---
Progress Note Progress Note AVSS Improving somewhat daily. Abdomen soft po intake only 700cc liquids and 50% of meals/snacke Urine 2200 Gastrostomy [id number] Ileostomy 725 taking lomotil before each meal labs stable Na 132 Imp. Shortened bowel syndrome duodenal obstruction, improved Plan: Plug gastrostomy continuously as tolerated change IV meds to po if does well will d/c TPN after tonight/tomorrow supply finished and will d/c supplemental IV fluids Increase lomotil to 4x daily (7am, 11am, 5pm, 9pm Lars Sotomayor MD Feb 04, 2019 14:47
--- NOTE | 2019-02-04 14:56 | NUR ---
NURSE NOTES: ambulated out in the [place] tolerated.
[2019-02-04] MEDS: NS w/KCl 40mEq 1,000 ML IV SCH ×2 (15:00→16:41)
[2019-02-04 16:00] VITALS: BP 110/71
[2019-02-04] MEDS: oxyCODONE HCL/Acetaminophen 5/325mg ORAL PRN (16:25)
--- NOTE | 2019-02-04 18:55 | NUR ---
NURSE NOTES: GTUBE PLUGGED. NO FURTHER NAUSEA.
--- NOTE | 2019-02-04 19:00 | NUR ---
NURSE NOTES: CONDITION STABLE. IN NO ACUTE DISTRESS
--- NOTE | 2019-02-04 19:03 | NUR ---
HAND-OFF: Report given to Liset FISHER RN.
--- NOTE | 2019-02-04 19:20 | NUR ---
NURSE NOTES: Received report from PATRICK Henning. Received pt laying in bed, AOx4, denies any pain, no distress noted. G-tube clamped. Denies nauasea. No leakage noted from Ileostomy bag. Piccline patent and intact. IV fluid and TPN infusing as ordered. Bed in lowest position and locked, side rails up x 2, call light within reach. Will continue to monitor.
[2019-02-04 20:00] VITALS: BP 128/72
[2019-02-04] MEDS: Dyna-Hex 2% Top Sol 2oz TOPIC SCH (20:26)
[2019-02-04] MEDS: Fat Emulsion Iv 20% 216 ML in Tpn 1,560 ML IV SCH (20:27)
[2019-02-04] MEDS: TraZODone HCl 25 mg tablet ORAL PRN (23:05)
[2019-02-05] VITALS: BP 125/76
[2019-02-05 04:00] VITALS: BP 125/68
--- NOTE | 2019-02-05 04:15 | NUR ---
NURSE NOTES: Vomitted 50cc of greenish bile emesis. Compazine 10mg IVP given for nausea. Complaint of abdominal discomfort 09/29. Percocet 5/325mg PO giiven, tolerated well without nausea or vomiting. G-tube placed to drainage bag for 1 hour. Will continue to monitor.
[2019-02-05] MEDS: oxyCODONE HCL/Acetaminophen 5/325mg ORAL PRN ×3 (04:21→22:44)
--- NOTE | 2019-02-05 05:15 | NUR ---
NURSE NOTES: Re-plug g-tube after 1 hour. G-tube output 50 cc. Pt denies any nausea or pain at this time. No distress noted. Will continue to monitor.
[2019-02-05] MEDS: Levothyroxine 125mcg tab ORAL SCH (05:56)
[2019-02-05] MEDS: Lomotil 2.5mg tab ORAL SCH ×4 (05:56→20:07)
[2019-02-05] MEDS: NovoLOG Insulin Flexpen SUBQ SCH ×4 (06:03→23:30)
[2019-02-05 06:35] LABS: BASOPHILS % (AUTO) 0.5 % (0.0-2.0); EOSINOPHILS % (AUTO) 4.7 % (0.0-3.0); HEMATOCRIT 29.9 % (37.0-47.0); HEMOGLOBIN 9.7 G/DL (12.0-16.0); MEAN CORPUSCULAR VOLUME 89 FL (80-99); MONOCYTES % (AUTO) 5.1 % (1.0-10.0); NEUTROPHILS % (AUTO) 71.6 % (45.0-75.0); PLATELET COUNT 387 K/UL (150-450); RED BLOOD COUNT 3.35 M/UL (4.20-5.40); RED CELL DISTRIBUTION WIDTH 14.6 % (11.6-14.8); WHITE BLOOD COUNT 8.1 K/UL (4.8-10.8)
[2019-02-05 06:55] LABS: ALANINE AMINOTRANSFERASE 28 U/L (12-78); ALBUMIN 2.3 G/DL (3.4-5.0); ALBUMIN/GLOBULIN RATIO 0.5 (1.0-2.7); ALKALINE PHOSPHATASE 249 U/L (46-116); ANION GAP 12 mmol/L (5-15); ASPARTATE AMINO TRANSFERASE 21 U/L (15-37); BILIRUBIN,TOTAL 0.2 MG/DL (0.2-1.0); BLOOD UREA NITROGEN 30 mg/dL (7-18); CALCIUM 9.5 MG/DL (8.5-10.1); CARBON DIOXIDE 18 MMOL/L (21-32); CHLORIDE 103 MMOL/L (98-107); CREATININE 1.2 MG/DL (0.55-1.30); PHOSPHORUS 3.4 MG/DL (2.5-4.9); POTASSIUM 4.6 MMOL/L (3.5-5.1); SODIUM 133 MMOL/L (136-145)
--- NOTE | 2019-02-05 07:26 | NUR ---
HAND-OFF: Report given to PATRICK Cruz. Pt in stable condition.
--- NOTE | 2019-02-05 07:30 | NUR ---
NURSE NOTES: Patient is in bed awake and able to verbalize needs. Stable. Denies pain or SOB. Patient encouraged to use call light for assistance, verbalized understanding. Gt plugged as ordered. ileo output measured. Patient able to void in bedside commode with no c/o burning or discomfort. PICC line running TPN and IVF as ordered. Patient is in bed in locked and lowest position with call light within reach and trapeze overhead. Will continue to monitor.
[2019-02-05 08:00] VITALS: BP 144/81
[2019-02-05] MEDS ORDERED: Lomotil 2.5mg tab ORAL SCH (08:00)
[2019-02-05] MEDS: Mycophenolate 250mg cap ORAL SCH ×2 (08:38→20:07)
[2019-02-05] MEDS: Metoprolol Succinate XL 50mg tab ORAL SCH (08:38)
[2019-02-05] MEDS: Lisinopril 20mg tab ORAL SCH (08:39)
--- NOTE | 2019-02-05 09:17 | General Progress Note ---
Progress Note Progress Note AVSS Tolerated gastrostomy continuously plugged with only 1 small emesis of 50cc po intake 940cc + 30% of food Urine 2350 Gastrostomy - plugged emesis 50cc Ileostomy 1650 BUN up 30 but Cr down 1.2 Mg 1.2 - patient states she takes oral Mg pills one daily at home Imp. Improving but high volume ileostomy output due to shortened bowel syndrome Plan: Gatorade/H2O 500cc TID d/c IV fluids - continue TPN continue Lomotil QID - may need tincture of opium to control output Mag oxide 400mg po TID f/u labs Rx given for: Percocet 5/325 #40; Lomotil 2.5mg #40 Zofran ODT 4mg #40 Pantoprazole 40mg po q12h #40 May be ready for discharge in 48hours Lars Sotomayor MD Feb 05, 2019 09:17
[2019-02-05] MEDS: Magnesium Oxide 400mg tab ORAL SCH ×3 (09:54→18:02)
--- NOTE | 2019-02-05 10:30 | NUR ---
NURSE NOTES: Gave patient gatorade and water as ordered.
--- NOTE | 2019-02-05 11:00 | NUR ---
NURSE NOTES: ileostomy bag changed by wound care nurse.
[2019-02-05] MEDS: Phytonadione 10 mg/mL 1ml amp SUBQ SCH (11:48)
[2019-02-05 12:00] VITALS: BP 128/75
--- NOTE | 2019-02-05 12:01 | General Progress Note ---
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, on Prograf and Cellcept - malnutrition, depressed Albumin, on TPN - N/V - anemia - hypothyroid on replacement -severe esophagitis Recommendations - Follow labs and replace lytes PRN - Abx per ID - monitor Prograf level, watch for Diflucan drug interaction - Continue TPN, - Elevate HOB - Wound care - continue ppi BID reflux measures consider dc GT if recommended by surg fu labs high ileostomy out put, on Lomotil will fu Subjective ROS Limited/Unobtainable: Yes Allergies: Coded Allergies: CODEINE (Verified Allergy, Severe, 12/17/18) Face contractions HYDROMORPHONE (Verified Allergy, Severe, Itching, 12/17/18) Itching whole body METOCLOPRAMIDE (Verified Allergy, Severe, 12/17/18) Face contractions MORPHINE (Verified Allergy, Severe, Shortness of Breath, 12/17/18) SULFA (SULFONAMIDE ANTIBIOTICS) (Verified Allergy, Severe, 12/17/18) Face contractions Objective Last 24 Hour Vital Signs Date Time Temp Pulse Resp B/P (MAP) Pulse Ox O2 Delivery O2 Flow Rate FiO2 02/05/19 09:00 Room Air 02/05/19 08:39 100 144/81 02/05/19 08:39 144/81 02/05/19 08:38 100 144/81 02/05/19 08:00 98.6 100 18 144/81 (102) 97 02/05/19 04:00 97.3 100 18 125/68 (87) 98 02/05/19 00:00 98.8 90 17 125/76 (92) 96 02/04/19 21:00 Room Air 02/04/19 20:00 98.5 92 18 128/72 (90) 98 02/04/19 17:17 95 110/71 02/04/19 16:55 98.3 02/04/19 16:00 98.3 95 20 110/71 (84) 99 02/04/19 12:00 98.5 104 21 113/69 (84) 99 Intake and Output 02/04/19 02/05/19 18:59 06:59 Intake Total 2208 ml 1734 ml Output Total 2250 ml 2100 ml Balance -42 ml -366 ml Intake Oral 520 ml 320 ml IV Total 1688 ml 1414 ml Output Urine Total 1050 ml 1300 ml Gastric Drainage Total 50 ml Emesis 50 ml Other 1200 ml 700 ml # Voids 8 Laboratory Tests 02/05/19 05:00: White Blood Count 8.1, Red Blood Count 3.35L, Hemoglobin 9.7L, Hematocrit 29.9L , Mean Corpuscular Volume 89, Mean Corpuscular Hemoglobin 29.1, Mean Corpuscular Hemoglobin Concent 32.6, Red Cell Distribution Width 14.6, Platelet Count 387, Mean Platelet Volume 5.7L, Neutrophils (%) (Auto) 71.6, Lymphocytes ( %) (Auto) 18.0L, Monocytes (%) (Auto) 5.1, Eosinophils (%) (Auto) 4.7H, Basophils (%) (Auto) 0.5, Sodium Level 133L, Potassium Level 4.6, Chloride Level 103, Carbon Dioxide Level 18L, Anion Gap 12, Blood Urea Nitrogen 30H, Creatinine 1.2, Estimat Glomerular Filtration Rate 44.8, Glucose Level 173H, Calcium Level 9.5, Phosphorus Level 3.4, Magnesium Level 1.2L, Total Bilirubin 0.2, Aspartate Amino Transf (AST/SGOT) 21, Alanine Aminotransferase (ALT/SGPT) 28, Alkaline Phosphatase 249H, Total Protein 6.9, Albumin 2.3L, Globulin 4.6, Albumin/Globulin Ratio 0.5L Height (Feet): 5 Height (Inches): 4.00 Weight (Pounds): 135 General Appearance: alert EENT: normal ENT inspection Neck: supple Cardiovascular: normal rate Respiratory/Chest: decreased breath sounds Abdomen: soft, other - GT and ileostomy bag in place Extremities: non-tender Max Dozier MD Feb 05, 2019 12:01
--- NOTE | 2019-02-05 13:00 | NUR ---
NURSE NOTES: Patient had gatorade and water as ordered with lunch.
[2019-02-05 16:00] VITALS: BP 127/73
--- NOTE | 2019-02-05 16:52 | NUR ---
*-*INSURANCE *-* UPDATED CLINICALS AND REVIEW HAVE BEEN FAXED TO: [facility]#[phone]
--- NOTE | 2019-02-05 17:59 | Infectious Diseases Prog Note ---
Assessment/Plan Assessment/Plan ASSESSMENT AND PLAN: 1. hx of leukocytosis, fevers, ? 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 infiltrated iv, ? cellulitis right arm - now resolved nausea and vomiting, partial duodenal obstruction - fluconazole based on jeff species is preferred drug especially in view of micafungin treatment prior to becoming fungemic - finish diflucan for 2 weeks treatment post negative cultures - s/p post EGD per GI - note reviewed - surveillance blood cultures negative - monitor labs, leukocytosis and fevers resolved - on 2D echo - no vegetations mentioned per report 2. 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 3. Liver transplantation. 4. Sclerosing cholangitis. 5. Ulcerative colitis. 6. The patient is anemic. 7. History of cholecystectomy, appendectomy, hysterectomy, and proctocolectomy. 8. History of multiple abdominal operations. 9. Allergies to codeine, hydromorphone, metoclopramide, morphine, and sulfa. 10. Family doctor is Noncontributory. 11. Social history is negative. 12. MAR was noted. 13. Case discussed with RN. 14. Case discussed with the patient. 15. Continue treatment per Dr. Sotomayor and consultants. Subjective Constitutional: Denies: fever HEENT: Denies: congestion Respiratory: Denies: shortness of breath Cardiovascular: Denies: chest pain Gastrointestinal/Abdominal: Denies: nausea, vomiting, diarrhea Genitourinary: Reports: other - no morales Neurologic: Denies: headache Psychiatric: Denies: depression Skin: Denies: rash Hematologic: Denies: bleeding Musculoskeletal: Denies: pain Allergies: Coded Allergies: CODEINE (Verified Allergy, Severe, 12/17/18) Face contractions HYDROMORPHONE (Verified Allergy, Severe, Itching, 12/17/18) Itching whole body METOCLOPRAMIDE (Verified Allergy, Severe, 12/17/18) Face contractions MORPHINE (Verified Allergy, Severe, Shortness of Breath, 12/17/18) SULFA (SULFONAMIDE ANTIBIOTICS) (Verified Allergy, Severe, 12/17/18) Face contractions Objective Vital Signs Last 24 Hour Vital Signs Date Time Temp Pulse Resp B/P (MAP) Pulse Ox O2 Delivery O2 Flow Rate FiO2 02/05/19 12:00 98.2 90 20 128/75 (92) 96 02/05/19 09:00 Room Air 02/05/19 08:39 100 144/81 02/05/19 08:39 144/81 02/05/19 08:38 100 144/81 02/05/19 08:00 98.6 100 18 144/81 (102) 97 02/05/19 04:00 97.3 100 18 125/68 (87) 98 02/05/19 00:00 98.8 90 17 125/76 (92) 96 02/04/19 21:00 Room Air 02/04/19 20:00 98.5 92 18 128/72 (90) 98 Height (Feet): 5 Height (Inches): 4.00 Weight (Pounds): 135 General Appearance: no acute distress HEENT: normocephalic, atraumatic, anicteric, mucous membranes moist Respiratory/Chest: lungs clear, normal breath sounds, no respiratory distress, no accessory muscle use Cardiovascular: normal rate, regular rhythm, no gallop/murmur, no JVD Abdomen: normal bowel sounds, soft, non tender, no organomegaly, non distended Genitourinary: other - no morales Extremities: no cyanosis Skin: no rash Neurologic/Psychiatric: 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 Evidence of total colectomy. Right lower abdominal wall ostomy is new since prior study. Previously seen left lower quadrant ostomy has been taken down. 2. Prominent proximal duodenum narrowing between the SMA and aorta. Query SMA syndrome. 3. Left lower abdominal wall percutaneous drainage catheter with tip in the right anterior lower abdomen. There is 3.6 x 6 cm fluid collection in the anterior lower pelvis and another loculated 2.8 x 3 cm collection to the right, likely connecting. There are surgical clips associated with the fluid collections and this may be unopacified patulous small bowel, limited as the oral contrast has not reached the distal small bowel loops. Consider delayed imaging. 4. Smaller loculated fluid with small air bubbles in the pelvis, likely due to recent postop changes, cannot exclude fistula or leak. 5. Anterior abdominal wall vertical incision with small fluid along the incision in the subcutaneous soft tissue. 6. Percutaneous gastrostomy tube. 7. Tiny bilateral nonobstructive renal stones. No ureteral stone or renal obstruction. CT abdomen and pelvis - 12/26/18 - Status post recent abdominal surgery with creation of a left lower quadrant Yajaira ileostomy. Good bowel and bag opacification with no evidence of bowel obstruction. Unusual, markedly distended unopacified loop of bowel in the pelvis. Although unopacified, this does not appear to be an abscess as there is a wall and other characteristics more in keeping with bowel. Would consider a large diverticulum or possibly remnant of the previous Kock pouch or part of the small bowel leading to the old pouch as those segments are sometimes quite distended. Status post liver transplant. Status post cholecystectomy. Mild basal atelectasis. Chest x-ray - no pna, report noted CT abdomen/pelvis - 12/30/18 - Impression: Postsurgical changes, as described Unusual tubular structure filled mostly with gas but also some fluid communicating with the small bowel at the site of a right lower quadrant enteroenterostomy. Uncertain as to whether this represents an unusual large diverticulum, a true extraluminal gas collection, or a portion of an old continent ileostomy pouch. This is also previously described Dilated proximal small bowel proximal to the enteroenterostomy with slow forward propulsion of contents. Partial small bowel obstruction not completely excludable although unlikely given evidence of forward propulsion of contrast and filling of the ileostomy on prior 12/26/2018 exam; findings most likely functional in nature. Correlate with clinical findings Small anterior pelvic and deep pelvic fluid pockets, most likely represent retained postoperative fluid collections. Abscess as etiology of any of these not completely excludable; correlation with clinical findings recommended Postsurgical changes of the liver status post transplantation Punctate nonobstructing bilateral intrarenal calculi Bilateral basilar pulmonary parenchymal atelectasis and/or scarring Chest x-ray - 01/07/19 - Images previously reviewed in person with Dr. Sotomayor Interval placement of a right transjugular central line, catheter tip in the region of the high right atrium. Left arm PICC line remains in place with the catheter tip at the cavoatrial junction. No evidence of pneumothorax. No definite focal airspace consolidation or pleural effusion. Surgical clips noted projecting over the upper abdomen. Labs Test 02/03/19 04:50 02/04/19 04:45 02/05/19 05:00 White Blood Count 8.7 K/UL (4.8-10.8) 7.0 K/UL (4.8-10.8) 8.1 K/UL (4.8-10.8) Red Blood Count 3.52 M/UL (4.20-5.40) 3.63 M/UL (4.20-5.40) 3.35 M/UL (4.20-5.40) Hemoglobin 10.5 G/DL (12.0-16.0) 10.6 G/DL (12.0-16.0) 9.7 G/DL (12.0-16.0) Hematocrit 31.1 % (37.0-47.0) 32.3 % (37.0-47.0) 29.9 % (37.0-47.0) Mean Corpuscular Volume 88 FL (80-99) 89 FL (80-99) 89 FL (80-99) Mean Corpuscular Hemoglobin 29.9 PG (27.0-31.0) 29.3 PG (27.0-31.0) 29.1 PG (27.0-31.0) Mean Corpuscular Hemoglobin Concent 33.9 G/DL (32.0-36.0) 33.0 G/DL (32.0-36.0) 32.6 G/DL (32.0-36.0) Red Cell Distribution Width 14.7 % (11.6-14.8) 14.7 % (11.6-14.8) 14.6 % (11.6-14.8) Platelet Count 397 K/UL (150-450) 406 K/UL (150-450) 387 K/UL (150-450) Mean Platelet Volume 5.5 FL (6.5-10.1) 5.5 FL (6.5-10.1) 5.7 FL (6.5-10.1) Neutrophils (%) (Auto) 72.3 % (45.0-75.0) 66.6 % (45.0-75.0) 71.6 % (45.0-75.0) Lymphocytes (%) (Auto) 16.7 % (20.0-45.0) 20.4 % (20.0-45.0) 18.0 % (20.0-45.0) Monocytes (%) (Auto) 6.1 % (1.0-10.0) 5.1 % (1.0-10.0) 5.1 % (1.0-10.0) Eosinophils (%) (Auto) 4.3 % (0.0-3.0) 6.9 % (0.0-3.0) 4.7 % (0.0-3.0) Basophils (%) (Auto) 0.7 % (0.0-2.0) 1.0 % (0.0-2.0) 0.5 % (0.0-2.0) Sodium Level 133 MMOL/L (136-145) 132 MMOL/L (136-145) 133 MMOL/L (136-145) Potassium Level 4.9 MMOL/L (3.5-5.1) 4.9 MMOL/L (3.5-5.1) 4.6 MMOL/L (3.5-5.1) Chloride Level 103 MMOL/L (98-107) 104 MMOL/L (98-107) 103 MMOL/L (98-107) Carbon Dioxide Level 21 MMOL/L (21-32) 21 MMOL/L (21-32) 18 MMOL/L (21-32) Anion Gap 9 mmol/L (5-15) 7 mmol/L (5-15) 12 mmol/L (5-15) Blood Urea Nitrogen 28 mg/dL (7-18) 28 mg/dL (7-18) 30 mg/dL (7-18) Creatinine 1.3 MG/DL (0.55-1.30) 1.3 MG/DL (0.55-1.30) 1.2 MG/DL (0.55-1.30) Estimat Glomerular Filtration Rate 40.9 mL/min (>60) 40.9 mL/min (>60) 44.8 mL/min (>60) Glucose Level 158 MG/DL (74-106) 164 MG/DL (74-106) 173 MG/DL (74-106) Calcium Level 9.7 MG/DL (8.5-10.1) 9.7 MG/DL (8.5-10.1) 9.5 MG/DL (8.5-10.1) Phosphorus Level 3.7 MG/DL (2.5-4.9) 3.4 MG/DL (2.5-4.9) Magnesium Level 2.1 MG/DL (1.8-2.4) 1.2 MG/DL (1.8-2.4) Total Bilirubin 0.2 MG/DL (0.2-1.0) 0.2 MG/DL (0.2-1.0) 0.2 MG/DL (0.2-1.0) Aspartate Amino Transf (AST/SGOT) 21 U/L (15-37) 24 U/L (15-37) 21 U/L (15-37) Alanine Aminotransferase (ALT/SGPT) 27 U/L (12-78) 26 U/L (12-78) 28 U/L (12-78) Alkaline Phosphatase 256 U/L (46-116) 266 U/L (46-116) 249 U/L (46-116) Total Protein 7.2 G/DL (6.4-8.2) 7.3 G/DL (6.4-8.2) 6.9 G/DL (6.4-8.2) Albumin 2.3 G/DL (3.4-5.0) 2.4 G/DL (3.4-5.0) 2.3 G/DL (3.4-5.0) Globulin 4.9 g/dL 4.9 g/dL 4.6 g/dL Albumin/Globulin Ratio 0.5 (1.0-2.7) 0.5 (1.0-2.7) 0.5 (1.0-2.7) Vitamin B12 Level 440 PG/ML (193-986) Folate 13.7 NG/ML (8.6-58.9) Laboratory Tests Test 02/05/19 05:00 White Blood Count 8.1 K/UL (4.8-10.8) Red Blood Count 3.35 M/UL (4.20-5.40) L Hemoglobin 9.7 G/DL (12.0-16.0) L Hematocrit 29.9 % (37.0-47.0) L Mean Corpuscular Volume 89 FL (80-99) Mean Corpuscular Hemoglobin 29.1 PG (27.0-31.0) Mean Corpuscular Hemoglobin Concent 32.6 G/DL (32.0-36.0) Red Cell Distribution Width 14.6 % (11.6-14.8) Platelet Count 387 K/UL (150-450) Mean Platelet Volume 5.7 FL (6.5-10.1) L Neutrophils (%) (Auto) 71.6 % (45.0-75.0) Lymphocytes (%) (Auto) 18.0 % (20.0-45.0) L Monocytes (%) (Auto) 5.1 % (1.0-10.0) Eosinophils (%) (Auto) 4.7 % (0.0-3.0) H Basophils (%) (Auto) 0.5 % (0.0-2.0) Sodium Level 133 MMOL/L (136-145) L Potassium Level 4.6 MMOL/L (3.5-5.1) Chloride Level 103 MMOL/L (98-107) Carbon Dioxide Level 18 MMOL/L (21-32) L Anion Gap 12 mmol/L (5-15) Blood Urea Nitrogen 30 mg/dL (7-18) H Creatinine 1.2 MG/DL (0.55-1.30) Estimat Glomerular Filtration Rate 44.8 mL/min (>60) Glucose Level 173 MG/DL (74-106) H Calcium Level 9.5 MG/DL (8.5-10.1) Phosphorus Level 3.4 MG/DL (2.5-4.9) Magnesium Level 1.2 MG/DL (1.8-2.4) L Total Bilirubin 0.2 MG/DL (0.2-1.0) Aspartate Amino Transf (AST/SGOT) 21 U/L (15-37) Alanine Aminotransferase (ALT/SGPT) 28 U/L (12-78) Alkaline Phosphatase 249 U/L (46-116) H Total Protein 6.9 G/DL (6.4-8.2) Albumin 2.3 G/DL (3.4-5.0) L Globulin 4.6 g/dL Albumin/Globulin Ratio 0.5 (1.0-2.7) L Current Medications Medications (Trade) Dose Ordered Sig/Kajal Route PRN Reason Start Time Stop Time Status Last Admin Dose Admin Acetaminophen (Tylenol) 650 mg Q6H PRN ORAL headache 01/14/19 09:00 02/13/19 08:59 Al Hydroxide/Mg Hydroxide (Mylanta) 30 ml Q4H PRN ORAL dyspepsia 01/29/19 08:00 02/28/19 07:59 02/01/19 00:22 Amlodipine Besylate (Norvasc) 5 mg BID ORAL 02/01/19 09:00 02/21/19 23:59 02/05/19 08:39 Chlorhexidine Gluconate (Yulia-Hex 2%) 1 applic DAILY@2000 TOPIC 01/22/19 20:00 02/21/19 19:59 02/04/19 20:26 Clonidine HCl (Catapres Tab) 0.1 mg Q6H PRN SL SBP>150 mmHg 01/29/19 08:45 02/07/19 08:44 02/04/19 08:51 Dextrose 1,000 ml @ 0 mls/hr Q24H PRN IV PN interrupted or unavailable 01/22/19 20:00 02/21/19 19:59 Dextrose (Dextrose 50%) 25 ml Q30M PRN IV Hypoglycemia 01/22/19 11:30 02/21/19 11:29 Dextrose (Dextrose 50%) 50 ml Q30M PRN IV Hypoglycemia 01/22/19 11:30 02/21/19 11:29 Diphenhydramine HCl (Benadryl) 50 mg Q4H PRN ORAL Itching 01/25/19 18:00 02/08/19 17:59 01/29/19 20:58 Diphenoxylate HCl/ Atropine (Lomotil) 2.5 mg 0700,1100,1700,2100 ORAL 02/05/19 11:00 03/07/19 10:59 02/05/19 16:55 Fat Emulsion Intravenous 216 ml/Amino Acids/ Electrolytes/ Dextrose 1,776 ml @ 74 mls/hr Q24H IV 01/25/19 20:00 02/24/19 19:59 02/04/19 20:27 Fluconazole/ Sodium Chloride 200 ml @ 200 mls/hr Q24H IV 01/30/19 17:00 02/06/19 16:59 02/05/19 16:50 Folic Acid (Folate) 1 mg DAILY ORAL 02/03/19 09:00 03/05/19 08:59 02/05/19 08:38 Heparin Sodium/ Sodium Chloride (Heparin 1000 units/500ml Premix) 1,000 unit ONCE PRN IV PICC PLACEMENT 01/22/19 11:30 02/21/19 11:29 Insulin Aspart (NovoLOG) Q6HR SUBQ 01/23/19 00:00 02/22/19 00:00 02/05/19 11:46 Levothyroxine Sodium (Synthroid) 125 mcg DAILY@0630 ORAL 01/24/19 06:30 02/23/19 06:29 02/05/19 05:56 Lidocaine HCl (Xylocaine Jelly 2%) 1 applic Q3H PRN TOPIC BURNING AROUND MEATUS 01/14/19 17:15 02/13/19 17:14 01/17/19 12:50 Lisinopril (Prinivil) 40 mg DAILY ORAL 01/29/19 09:00 02/15/19 08:59 02/05/19 08:39 Magnesium Oxide (Mag-Ox 400mg) 400 mg THREE TIMES A DAY ORAL 02/05/19 09:00 03/07/19 08:59 02/05/19 13:11 Metoprolol Succinate (Toprol XL) 50 mg DAILY ORAL 02/01/19 09:00 02/28/19 11:59 02/05/19 08:38 Mycophenolate Mofetil (Cellcept) 750 mg Q12HR ORAL 01/31/19 21:00 02/28/19 00:00 02/05/19 08:38 Naloxone HCl (Narcan) 0.1 mg PRN IV Sedation scale 3 or 4 02/01/19 13:30 03/03/19 13:29 Ondansetron HCl (Zofran ODT) 4 mg Q4H PRN ORAL Nausea & Vomiting 02/04/19 14:45 03/06/19 14:44 02/05/19 17:47 Oxycodone/ Acetaminophen (Percocet 5-325) 1 tab Q4H PRN ORAL For Pain 02/01/19 09:00 02/08/19 08:59 02/05/19 13:55 Pantoprazole (Protonix) 40 mg BEFORE BREAKFAST ORAL 02/06/19 06:30 03/06/19 20:59 Pantoprazole (Protonix) 40 mg BEFORE DINNER ORAL 02/05/19 16:30 03/07/19 16:29 02/05/19 16:49 Phytonadione (Vitamin K) 10 mg ONCE A WEEK SUBQ 01/22/19 12:00 02/21/19 11:59 02/05/19 11:48 Prochlorperazine (Compazine) 10 mg Q6H PRN IVP Nausea & Vomiting 02/04/19 14:45 03/06/19 14:44 02/05/19 04:17 Prochlorperazine (Compazine) 10 mg Q6H PRN ORAL Nausea & Vomiting 02/04/19 14:45 03/06/19 14:44 Tacrolimus (Prograf) 1 mg DAILY ORAL 02/03/19 09:00 02/25/19 08:59 02/05/19 08:38 Tacrolimus (Prograf) 2 mg BEDTIME ORAL 02/04/19 21:00 02/08/19 20:59 02/04/19 20:26 Trazodone HCl (Desyrel) 25 mg HSPRN PRN ORAL INSOMNIA 02/01/19 08:45 02/23/19 08:44 02/04/19 23:05 Philly Shelby MD Feb 05, 2019 17:59
--- NOTE | 2019-02-05 18:00 | NUR ---
NURSE NOTES: Patient had gatorade and water as ordered. Patient c/o nausea, will administer zofran as ordered.
--- NOTE | 2019-02-05 19:30 | NUR ---
HAND-OFF: Report given to Loraine NGUYEN. patient is stable.
[2019-02-05 20:05] VITALS: BP 134/78
[2019-02-05] MEDS: Dyna-Hex 2% Top Sol 2oz TOPIC SCH (20:07)
[2019-02-05] MEDS: Fat Emulsion Iv 20% 216 ML in Tpn 1,560 ML IV SCH (20:08)
--- NOTE | 2019-02-05 21:23 | NUR ---
NURSE NOTE: Pt is A/Ox4 with stable VS. Orders reviewed and physical assessment completed. Abdominal binder is on, no evidence of leaking from ileo bag at this time. G-tube is clamped. Pt denies pain. Call felton is within reach. Will continue to monitor.
--- NOTE | 2019-02-05 22:34 | NUR ---
NURSE NOTE: Pt requested a Percocet at approx 2228, however, upon returning with medication the patient was vomiting. Emesis total was 150mL. G-tube placed to drainage and pt instructed to wait before receiving PO medication. Percocet was returned to pxysis.
--- NOTE | 2019-02-05 22:48 | NUR ---
NURSE NOTE: Pt adamant about not waiting an hour to allow the G-tube to drain so that she can take her Percocet for a pain of 6/10 in the back and abdomen. Pt expressed that she feels better after emesis. Minimal yellow/brownish drainage collected in G-tube drainage bag. Will measure with AM I/O's. G-tube re-clamped. Percocet administered along with disintegrating Zofran. Will continue to monitor.
[2019-02-06] MEDS: Prochlorperazine 10mg tab ORAL PRN (03:15)
--- NOTE | 2019-02-06 04:11 | NUR ---
NURSE NOTE: Pt felt nauseas at approx. 0325 and requested Compazine. Compazine PO was administered however, pt began vomiting about 5 minutes after administration. Total emesis was 250mL. G-tube was clamped and IV Compazine was administered. Will re-clamp G-tube at 0430. Will continue to monitor.
[2019-02-06 05:33] LABS: BASOPHILS % (AUTO) 0.7 % (0.0-2.0); EOSINOPHILS % (AUTO) 4.6 % (0.0-3.0); HEMATOCRIT 31.6 % (37.0-47.0); HEMOGLOBIN 10.6 G/DL (12.0-16.0); LYMPHOCYTES % (AUTO) 17.7 % (20.0-45.0); MEAN CORPUSCULAR VOLUME 88 FL (80-99); MONOCYTES % (AUTO) 5.3 % (1.0-10.0); NEUTROPHILS % (AUTO) 71.7 % (45.0-75.0); PLATELET COUNT 444 K/UL (150-450); RED BLOOD COUNT 3.59 M/UL (4.20-5.40); RED CELL DISTRIBUTION WIDTH 14.5 % (11.6-14.8); WHITE BLOOD COUNT 8.7 K/UL (4.8-10.8)
[2019-02-06 05:52] LABS: ALANINE AMINOTRANSFERASE 34 U/L (12-78); ALBUMIN 2.4 G/DL (3.4-5.0); ALBUMIN/GLOBULIN RATIO 0.5 (1.0-2.7); ALKALINE PHOSPHATASE 276 U/L (46-116); ANION GAP 8 mmol/L (5-15); ASPARTATE AMINO TRANSFERASE 21 U/L (15-37); BILIRUBIN,TOTAL 0.2 MG/DL (0.2-1.0); BLOOD UREA NITROGEN 28 mg/dL (7-18); CARBON DIOXIDE 22 MMOL/L (21-32); CHLORIDE 100 MMOL/L (98-107); CREATININE 1.2 MG/DL (0.55-1.30); POTASSIUM 4.7 MMOL/L (3.5-5.1); SODIUM 130 MMOL/L (136-145)
[2019-02-06 06:00] VITALS: BP 141/80
[2019-02-06] MEDS: Lomotil 2.5mg tab ORAL SCH ×4 (06:10→20:57)
[2019-02-06] MEDS: Levothyroxine 125mcg tab ORAL SCH (06:11)
[2019-02-06] MEDS: NovoLOG Insulin Flexpen SUBQ SCH ×3 (06:12→17:24)
--- NOTE | 2019-02-06 07:24 | NUR ---
NURSE NOTE: Report given to
--- NOTE | 2019-02-06 07:30 | NUR ---
NURSE NOTES: Patient is in bed awake and able to verbalize needs. Stable. Denies pain or SOB. Patient denies nausea. TPN running through PICC as ordered. Patient encouraged to use call light for assistance, verbalized understanding. Ileo bag in place. Will monitor I&O throughout shift. Patient is in bed in locked and lowest position with call light within reach and trapeze overhead. Will continue to monitor.
[2019-02-06 08:00] VITALS: BP 121/76
[2019-02-06] MEDS: Mycophenolate 250mg cap ORAL SCH ×2 (10:02→20:51)
[2019-02-06] MEDS: Lisinopril 20mg tab ORAL SCH (10:03)
[2019-02-06] MEDS: Metoprolol Succinate XL 50mg tab ORAL SCH (10:03)
[2019-02-06] MEDS: Magnesium Oxide 400mg tab ORAL SCH ×3 (10:03→17:18)
--- NOTE | 2019-02-06 10:48 | NUR ---
PT WEEKLY PROGRESS NOTE Patient continues to participate with PT to increase strength and activity tolerance for increased mobility independence. Patient continues to demonstrate steady progress in ease of mobility and with ambulation endurance. Patient currently able to perform bed mobility and transfers with supervision. Patient able to ambulate up to 250 ft with FWW and SBA/supervision, occasionally requires sitting rest due to c/o weakness R knee. Patient will benefit from continued skilled inpatient PT intervention to progress with functional mobility and endurance.
--- NOTE | 2019-02-06 11:10 | General Progress Note ---
Progress Note Progress Note AVSS Took nearly 2000cc po fluids, and ate 50% of dinner. had emesis x 2 during the night 150cc + 250cc. gastrostomy output 100cc Ileostomy appliance staying intact Urine 2425 Ileostomy 1000cc taking lomotil 4x daily WBC 8700 Hgb 10.6 Na 130 BU"N 28 Cr 1.2 Mg 1.8 Imp. Improving Plan: NS IVPB 75cc/hr taper and d/c TPN anticipate discharge in am with removal of PIC and gastrostomy if stable and AM labs Lars Miller MD Feb 06, 2019 11:10
[2019-02-06 12:00] VITALS: BP 126/78
--- NOTE | 2019-02-06 12:34 | Cardiology Progress Note ---
Assessment/Plan Status Narrative 1. Malfunctioning Kock pouch continent ileostomy. 2. History of ulcerative colitis. 3. History of primary sclerosing cholangitis. 4. Status post multiple abdominal operations. 4.1. Appendectomy in 1964. 4.2. Proctocolectomy and Kock pouch in 1978. 4.3. Total abdominal hysterectomy and bilateral salpingo-oophorectomy 1983 4.4. Cholecystectomy in 1985. 4.5. Orthotopic liver transplantation in 1999. 4.6. Revision of Kock pouch and repair of fistula in 2010. HTN- New onset- Controlled on Norvasc /Lisinopril and Metoprolol Tachycardia- probably due to volume depletion Renal insuff- Most probably due volume depletion ( High GT output), - Creat 1.3 Volume depletion- high GT output- Esophagitis Duodenal narrowing improving Vomiting -? GI hypomobility HTN better controlled Assessment/Plan Metoprolol 25 mg QD Zestril 40 mg QD. Norvasc 5 mg BID Monitor BP Diet as per DR. Sotomayor Increase activity Continue current management Hoping for DC home in AM Rx given for BP meds Discussed with RN. Subjective Cardiovascular: Reports: no symptoms Respiratory: Reports: no symptoms Gastrointestinal/Abdominal: Reports: vomiting Genitourinary: Reports: no symptoms Subjective Still NPO vomiting x1 today Having out put from ileostomy Has been out of bed, ambulated. Pain controlled Creat 1.3 High output from GT- now being plugged Q2h S/P EGD today- showed gastriris/esophagitis with mid duodenal narrowing 01/21/19- had Gatrografin UGI study, increased ileostomy output. No vomiting today. 01/22/10- has tolerated clear liquids, had vomiting x1 this morning. 01/23- Started on solid food 01/24- Vomited after breakfast, and lunch- TPN @74 cc/h, IV @ 70 cc/h 01/26- No vomiting today, tolerated solids, still on TPN 01/29 Small amount of vomiting earlier, has tolerated her lunch 01/30- Had CT done- showing persistent duodenal narrowing, Has had vmiting, high GT utput. IOs negative, Creat 1.3, HR 117 02/01- NPO, no Vomiting, scheduled for EGD in AM 02/02- s/p EGD today- duodenal narrowing improving, started on diet, 02/03- tolerating solids, had vomiting x2, on Lolomtil, ambulating, still on TPN , IV fluids. Creat 1.3 02/04- ambulating, no vomiting still on TPN and IV fluids . Creat 1.3 02/06- Had vomiting x 2 , tolerating PO food. Creat 1.2 Objective Last 24 Hour Vital Signs Date Time Temp Pulse Resp B/P (MAP) Pulse Ox O2 Delivery O2 Flow Rate FiO2 02/06/19 12:00 98.4 97 18 126/78 (94) 96 02/06/19 10:03 112 134/82 02/06/19 10:03 112 134/82 02/06/19 10:03 134/82 02/06/19 09:00 Room Air 02/06/19 08:00 98.1 102 18 121/76 (91) 96 02/06/19 06:00 98.1 99 18 141/80 (100) 100 02/05/19 21:17 Room Air 02/05/19 20:05 98.8 90 20 134/78 (96) 95 02/05/19 18:02 89 127/74 02/05/19 16:00 98.4 87 20 127/73 (91) 95 Cardiovascular: normal rate Respiratory/Chest: chest wall non-tender, lungs clear Abdomen: normal bowel sounds, non tender, soft Extremities: non-tender, normal inspection, no calf tenderness, no swelling Intake and Output 02/05/19 02/06/19 19:00 07:00 Intake Total 2568 ml 300 ml Output Total 2450 ml 1475 ml Balance 118 ml -1175 ml Intake Oral 1680 ml 300 ml IV Total 888 ml Output Urine Total 1825 ml 600 ml Gastric Drainage Total 0 ml 100 ml Emesis 0 ml 400 ml Other 625 ml 375 ml Laboratory Tests Test 02/06/19 05:00 White Blood Count 8.7 K/UL (4.8-10.8) Red Blood Count 3.59 M/UL (4.20-5.40) L Hemoglobin 10.6 G/DL (12.0-16.0) L Hematocrit 31.6 % (37.0-47.0) L Mean Corpuscular Volume 88 FL (80-99) Mean Corpuscular Hemoglobin 29.6 PG (27.0-31.0) Mean Corpuscular Hemoglobin Concent 33.7 G/DL (32.0-36.0) Red Cell Distribution Width 14.5 % (11.6-14.8) Platelet Count 444 K/UL (150-450) Mean Platelet Volume 5.9 FL (6.5-10.1) L Neutrophils (%) (Auto) 71.7 % (45.0-75.0) Lymphocytes (%) (Auto) 17.7 % (20.0-45.0) L Monocytes (%) (Auto) 5.3 % (1.0-10.0) Eosinophils (%) (Auto) 4.6 % (0.0-3.0) H Basophils (%) (Auto) 0.7 % (0.0-2.0) Sodium Level 130 MMOL/L (136-145) L Potassium Level 4.7 MMOL/L (3.5-5.1) Chloride Level 100 MMOL/L (98-107) Carbon Dioxide Level 22 MMOL/L (21-32) Anion Gap 8 mmol/L (5-15) Blood Urea Nitrogen 28 mg/dL (7-18) H Creatinine 1.2 MG/DL (0.55-1.30) Estimat Glomerular Filtration Rate 44.8 mL/min (>60) Glucose Level 161 MG/DL (74-106) H Calcium Level 10.0 MG/DL (8.5-10.1) Magnesium Level 1.8 MG/DL (1.8-2.4) Total Bilirubin 0.2 MG/DL (0.2-1.0) Aspartate Amino Transf (AST/SGOT) 21 U/L (15-37) Alanine Aminotransferase (ALT/SGPT) 34 U/L (12-78) Alkaline Phosphatase 276 U/L (46-116) H Total Protein 7.1 G/DL (6.4-8.2) Albumin 2.4 G/DL (3.4-5.0) L Globulin 4.7 g/dL Albumin/Globulin Ratio 0.5 (1.0-2.7) L Micha Ziegler MD Feb 06, 2019 12:34
[2019-02-06] MEDS: oxyCODONE HCL/Acetaminophen 5/325mg ORAL PRN ×2 (13:10→19:19)
--- NOTE | 2019-02-06 13:17 | GI Progress Note ---
Assessment/Plan Problems: (1) Malfunctioning Kock Pouch (2) History of liver transplant ICD Codes: Z94.4 - Liver transplant status SNOMED: [id number] Status: stable, progressing Status Narrative Discussed with Dr. Dozier. 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 I agree with the above findings, impression and plan. (Patient seen earlier today. Signature stamp does not reflect patient encounter time.). - Max Dozier MD Subjective Gastrointestinal/Abdominal: Reports: no symptoms Objective Last 24 Hour Vital Signs Date Time Temp Pulse Resp B/P (MAP) Pulse Ox O2 Delivery O2 Flow Rate FiO2 02/06/19 12:00 98.4 97 18 126/78 (94) 96 02/06/19 10:03 112 134/82 02/06/19 10:03 112 134/82 02/06/19 10:03 134/82 02/06/19 09:00 Room Air 02/06/19 08:00 98.1 102 18 121/76 (91) 96 02/06/19 06:00 98.1 99 18 141/80 (100) 100 02/05/19 21:17 Room Air 02/05/19 20:05 98.8 90 20 134/78 (96) 95 02/05/19 18:02 89 127/74 02/05/19 16:00 98.4 87 20 127/73 (91) 95 Intake and Output 02/05/19 02/06/19 18:59 06:59 Intake Total 2618 ml 300 ml Output Total 2450 ml 1475 ml Balance 168 ml -1175 ml Intake Oral 1680 ml 300 ml IV Total 938 ml Output Urine Total 1825 ml 600 ml Gastric Drainage Total 0 ml 100 ml Emesis 0 ml 400 ml Other 625 ml 375 ml Laboratory Tests Test 02/06/19 05:00 White Blood Count 8.7 K/UL (4.8-10.8) Red Blood Count 3.59 M/UL (4.20-5.40) L Hemoglobin 10.6 G/DL (12.0-16.0) L Hematocrit 31.6 % (37.0-47.0) L Mean Corpuscular Volume 88 FL (80-99) Mean Corpuscular Hemoglobin 29.6 PG (27.0-31.0) Mean Corpuscular Hemoglobin Concent 33.7 G/DL (32.0-36.0) Red Cell Distribution Width 14.5 % (11.6-14.8) Platelet Count 444 K/UL (150-450) Mean Platelet Volume 5.9 FL (6.5-10.1) L Neutrophils (%) (Auto) 71.7 % (45.0-75.0) Lymphocytes (%) (Auto) 17.7 % (20.0-45.0) L Monocytes (%) (Auto) 5.3 % (1.0-10.0) Eosinophils (%) (Auto) 4.6 % (0.0-3.0) H Basophils (%) (Auto) 0.7 % (0.0-2.0) Sodium Level 130 MMOL/L (136-145) L Potassium Level 4.7 MMOL/L (3.5-5.1) Chloride Level 100 MMOL/L (98-107) Carbon Dioxide Level 22 MMOL/L (21-32) Anion Gap 8 mmol/L (5-15) Blood Urea Nitrogen 28 mg/dL (7-18) H Creatinine 1.2 MG/DL (0.55-1.30) Estimat Glomerular Filtration Rate 44.8 mL/min (>60) Glucose Level 161 MG/DL (74-106) H Calcium Level 10.0 MG/DL (8.5-10.1) Magnesium Level 1.8 MG/DL (1.8-2.4) Total Bilirubin 0.2 MG/DL (0.2-1.0) Aspartate Amino Transf (AST/SGOT) 21 U/L (15-37) Alanine Aminotransferase (ALT/SGPT) 34 U/L (12-78) Alkaline Phosphatase 276 U/L (46-116) H Total Protein 7.1 G/DL (6.4-8.2) Albumin 2.4 G/DL (3.4-5.0) L Globulin 4.7 g/dL Albumin/Globulin Ratio 0.5 (1.0-2.7) L Height (Feet): 5 Height (Inches): 4.00 Weight (Pounds): 135 General Appearance: WD/WN, no apparent distress, alert Cardiovascular: normal rate Respiratory/Chest: normal breath sounds, no respiratory distress Abdominal Exam: normal bowel sounds, non tender, soft Extremities: normal range of motion, non-tender Jeyson Luna NP Feb 06, 2019 13:17
--- NOTE | 2019-02-06 15:23 | NUR ---
DISCHARGE PLANNING SPOKE WITH PATIENT AT BEDSIDE YESTERDAY CALLED [facility] @ T: [phone] AND SPOKE WITH BRI ORNELAS ~ OSTOMY WOUND CARE NURSE FAXED SUPPLY SHEET AND ORDER NUMBER OF POUCHES TO BRI F: [phone] PER BRI WE NEED TO GIVE PATIENT 2 WEEKS OR MORE OF SUPPLIES SINCE IT WILL BE 2 WEEKS BEFORE PATIENT IS SEEN BY A [facility] NURSE OR A PHYSICIAN WHEN PATIENT ARRIVES HOME SHE NEEDS TO CALL AND SET UP AN APPOINTMENT FOR FOLLOW UP BRI WOULD NOT ALLOW THIS DISTRICT RANGER TO SET APPT BRI STATED SHE SPOKE WITH PATIENT'S YESTERDAY AND STATED HE WAS NOT SURE WHERE THEY ARE GOING ONCE THEY LEAVE THE HOSPITAL. PATIENT HAS 2 RESIDENCES [address] [place] [address] AND [address] [place] [address]
--- NOTE | 2019-02-06 15:44 | Infectious Diseases Prog Note ---
Assessment/Plan Assessment/Plan ASSESSMENT AND PLAN: 1. hx of leukocytosis, fevers, ? 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 infiltrated iv, ? cellulitis right arm - now resolved nausea and vomiting, partial duodenal obstruction - s/p 2 weeks diflucan post negative cultures - s/p post EGD per GI - note reviewed - surveillance blood cultures negative - monitor labs, leukocytosis and fevers resolved - on 2D echo - no vegetations mentioned per report - monitor off anti-fungal 2. 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 3. Liver transplantation. 4. Sclerosing cholangitis. 5. Ulcerative colitis. 6. The patient is anemic. 7. History of cholecystectomy, appendectomy, hysterectomy, and proctocolectomy. 8. History of multiple abdominal operations. 9. Allergies to codeine, hydromorphone, metoclopramide, morphine, and sulfa. 10. Family doctor is Noncontributory. 11. Social history is negative. 12. MAR was noted. 13. Case discussed with RN. 14. Case discussed with the patient. 15. Continue treatment per Dr. Sotomayor and consultants. Subjective Constitutional: Denies: fever HEENT: Denies: congestion Respiratory: Denies: shortness of breath Cardiovascular: Denies: chest pain, palpitations Genitourinary: Reports: other - no morales ; Denies: dysuria, hematuria Neurologic: Denies: headache Psychiatric: Denies: depression Skin: Denies: rash Hematologic: Denies: bleeding Musculoskeletal: Denies: pain Allergies: Coded Allergies: CODEINE (Verified Allergy, Severe, 12/17/18) Face contractions HYDROMORPHONE (Verified Allergy, Severe, Itching, 12/17/18) Itching whole body METOCLOPRAMIDE (Verified Allergy, Severe, 12/17/18) Face contractions MORPHINE (Verified Allergy, Severe, Shortness of Breath, 12/17/18) SULFA (SULFONAMIDE ANTIBIOTICS) (Verified Allergy, Severe, 12/17/18) Face contractions Objective Vital Signs Last 24 Hour Vital Signs Date Time Temp Pulse Resp B/P (MAP) Pulse Ox O2 Delivery O2 Flow Rate FiO2 02/06/19 12:00 98.4 97 18 126/78 (94) 96 02/06/19 10:03 112 134/82 02/06/19 10:03 112 134/82 02/06/19 10:03 134/82 02/06/19 09:00 Room Air 02/06/19 08:00 98.1 102 18 121/76 (91) 96 02/06/19 06:00 98.1 99 18 141/80 (100) 100 02/05/19 21:17 Room Air 02/05/19 20:05 98.8 90 20 134/78 (96) 95 02/05/19 18:02 89 127/74 02/05/19 16:00 98.4 87 20 127/73 (91) 95 Height (Feet): 5 Height (Inches): 4.00 Weight (Pounds): 135 General Appearance: no acute distress HEENT: normocephalic, atraumatic, anicteric, mucous membranes moist Respiratory/Chest: lungs clear, normal breath sounds, no respiratory distress, no accessory muscle use Cardiovascular: normal rate, regular rhythm, no gallop/murmur, no JVD Abdomen: normal bowel sounds, soft, non tender, no organomegaly, non distended Genitourinary: other - no morales Extremities: no cyanosis Skin: no rash Neurologic/Psychiatric: 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 Evidence of total colectomy. Right lower abdominal wall ostomy is new since prior study. Previously seen left lower quadrant ostomy has been taken down. 2. Prominent proximal duodenum narrowing between the SMA and aorta. Query SMA syndrome. 3. Left lower abdominal wall percutaneous drainage catheter with tip in the right anterior lower abdomen. There is 3.6 x 6 cm fluid collection in the anterior lower pelvis and another loculated 2.8 x 3 cm collection to the right, likely connecting. There are surgical clips associated with the fluid collections and this may be unopacified patulous small bowel, limited as the oral contrast has not reached the distal small bowel loops. Consider delayed imaging. 4. Smaller loculated fluid with small air bubbles in the pelvis, likely due to recent postop changes, cannot exclude fistula or leak. 5. Anterior abdominal wall vertical incision with small fluid along the incision in the subcutaneous soft tissue. 6. Percutaneous gastrostomy tube. 7. Tiny bilateral nonobstructive renal stones. No ureteral stone or renal obstruction. CT abdomen and pelvis - 12/26/18 - Status post recent abdominal surgery with creation of a left lower quadrant Yajaira ileostomy. Good bowel and bag opacification with no evidence of bowel obstruction. Unusual, markedly distended unopacified loop of bowel in the pelvis. Although unopacified, this does not appear to be an abscess as there is a wall and other characteristics more in keeping with bowel. Would consider a large diverticulum or possibly remnant of the previous Kock pouch or part of the small bowel leading to the old pouch as those segments are sometimes quite distended. Status post liver transplant. Status post cholecystectomy. Mild basal atelectasis. Chest x-ray - no pna, report noted CT abdomen/pelvis - 12/30/18 - Impression: Postsurgical changes, as described Unusual tubular structure filled mostly with gas but also some fluid communicating with the small bowel at the site of a right lower quadrant enteroenterostomy. Uncertain as to whether this represents an unusual large diverticulum, a true extraluminal gas collection, or a portion of an old continent ileostomy pouch. This is also previously described Dilated proximal small bowel proximal to the enteroenterostomy with slow forward propulsion of contents. Partial small bowel obstruction not completely excludable although unlikely given evidence of forward propulsion of contrast and filling of the ileostomy on prior 12/26/2018 exam; findings most likely functional in nature. Correlate with clinical findings Small anterior pelvic and deep pelvic fluid pockets, most likely represent retained postoperative fluid collections. Abscess as etiology of any of these not completely excludable; correlation with clinical findings recommended Postsurgical changes of the liver status post transplantation Punctate nonobstructing bilateral intrarenal calculi Bilateral basilar pulmonary parenchymal atelectasis and/or scarring Chest x-ray - 01/07/19 - Images previously reviewed in person with Dr. Sotomayor Interval placement of a right transjugular central line, catheter tip in the region of the high right atrium. Left arm PICC line remains in place with the catheter tip at the cavoatrial junction. No evidence of pneumothorax. No definite focal airspace consolidation or pleural effusion. Surgical clips noted projecting over the upper abdomen. Microbiology Date/Time Source Procedure Growth Status 01/21/19 04:40 Blood Blood Culture - Final NO GROWTH AFTER 5 DAYS Complete 01/28/19 09:10 Stool Clostridium difficile Toxin Assay - Final Complete 01/17/19 19:14 Indwelling Cath Urine Culture - Final Jeff Parapsilosis Complete 01/06/19 22:30 Abdominal Fluid Gram Stain - Final Complete 01/06/19 22:30 Body Fluid Culture - Final Jeff Albicans Complete Laboratory Tests Test 02/06/19 05:00 White Blood Count 8.7 K/UL (4.8-10.8) Red Blood Count 3.59 M/UL (4.20-5.40) L Hemoglobin 10.6 G/DL (12.0-16.0) L Hematocrit 31.6 % (37.0-47.0) L Mean Corpuscular Volume 88 FL (80-99) Mean Corpuscular Hemoglobin 29.6 PG (27.0-31.0) Mean Corpuscular Hemoglobin Concent 33.7 G/DL (32.0-36.0) Red Cell Distribution Width 14.5 % (11.6-14.8) Platelet Count 444 K/UL (150-450) Mean Platelet Volume 5.9 FL (6.5-10.1) L Neutrophils (%) (Auto) 71.7 % (45.0-75.0) Lymphocytes (%) (Auto) 17.7 % (20.0-45.0) L Monocytes (%) (Auto) 5.3 % (1.0-10.0) Eosinophils (%) (Auto) 4.6 % (0.0-3.0) H Basophils (%) (Auto) 0.7 % (0.0-2.0) Sodium Level 130 MMOL/L (136-145) L Potassium Level 4.7 MMOL/L (3.5-5.1) Chloride Level 100 MMOL/L (98-107) Carbon Dioxide Level 22 MMOL/L (21-32) Anion Gap 8 mmol/L (5-15) Blood Urea Nitrogen 28 mg/dL (7-18) H Creatinine 1.2 MG/DL (0.55-1.30) Estimat Glomerular Filtration Rate 44.8 mL/min (>60) Glucose Level 161 MG/DL (74-106) H Calcium Level 10.0 MG/DL (8.5-10.1) Magnesium Level 1.8 MG/DL (1.8-2.4) Total Bilirubin 0.2 MG/DL (0.2-1.0) Aspartate Amino Transf (AST/SGOT) 21 U/L (15-37) Alanine Aminotransferase (ALT/SGPT) 34 U/L (12-78) Alkaline Phosphatase 276 U/L (46-116) H Total Protein 7.1 G/DL (6.4-8.2) Albumin 2.4 G/DL (3.4-5.0) L Globulin 4.7 g/dL Albumin/Globulin Ratio 0.5 (1.0-2.7) L Current Medications Medications (Trade) Dose Ordered Sig/Kajal Route PRN Reason Start Time Stop Time Status Last Admin Dose Admin Acetaminophen (Tylenol) 650 mg Q6H PRN ORAL headache 01/14/19 09:00 02/13/19 08:59 Al Hydroxide/Mg Hydroxide (Mylanta) 30 ml Q4H PRN ORAL dyspepsia 01/29/19 08:00 02/28/19 07:59 02/01/19 00:22 Amlodipine Besylate (Norvasc) 5 mg BID ORAL 02/01/19 09:00 02/21/19 23:59 02/06/19 10:03 Chlorhexidine Gluconate (Yulia-Hex 2%) 1 applic DAILY@2000 TOPIC 01/22/19 20:00 02/21/19 19:59 02/05/19 20:07 Clonidine HCl (Catapres Tab) 0.1 mg Q6H PRN SL SBP>150 mmHg 01/29/19 08:45 02/07/19 08:44 02/04/19 08:51 Dextrose 1,000 ml @ 0 mls/hr Q24H PRN IV PN interrupted or unavailable 01/22/19 20:00 02/21/19 19:59 Dextrose (Dextrose 50%) 25 ml Q30M PRN IV Hypoglycemia 01/22/19 11:30 02/21/19 11:29 Dextrose (Dextrose 50%) 50 ml Q30M PRN IV Hypoglycemia 01/22/19 11:30 02/21/19 11:29 Diphenhydramine HCl (Benadryl) 50 mg Q4H PRN ORAL Itching 01/25/19 18:00 02/08/19 17:59 01/29/19 20:58 Diphenoxylate HCl/ Atropine (Lomotil) 2.5 mg 0700,1100,1700,2100 ORAL 02/05/19 11:00 03/07/19 10:59 02/06/19 11:10 Fat Emulsion Intravenous 216 ml/Amino Acids/ Electrolytes/ Dextrose 1,776 ml @ 74 mls/hr Q24H IV 01/25/19 20:00 02/06/19 20:00 02/05/19 20:08 Folic Acid (Folate) 1 mg DAILY ORAL 02/03/19 09:00 03/05/19 08:59 02/06/19 10:03 Heparin Sodium/ Sodium Chloride (Heparin 1000 units/500ml Premix) 1,000 unit ONCE PRN IV PICC PLACEMENT 01/22/19 11:30 02/21/19 11:29 Insulin Aspart (NovoLOG) Q6HR SUBQ 01/23/19 00:00 02/22/19 00:00 02/06/19 12:37 Levothyroxine Sodium (Synthroid) 125 mcg DAILY@0630 ORAL 01/24/19 06:30 02/23/19 06:29 02/06/19 06:11 Lidocaine HCl (Xylocaine Jelly 2%) 1 applic Q3H PRN TOPIC BURNING AROUND MEATUS 01/14/19 17:15 02/13/19 17:14 01/17/19 12:50 Lisinopril (Prinivil) 40 mg DAILY ORAL 01/29/19 09:00 02/15/19 08:59 02/06/19 10:03 Magnesium Oxide (Mag-Ox 400mg) 400 mg THREE TIMES A DAY ORAL 02/05/19 09:00 03/07/19 08:59 02/06/19 12:34 Metoprolol Succinate (Toprol XL) 50 mg DAILY ORAL 02/01/19 09:00 02/28/19 11:59 02/06/19 10:03 Mycophenolate Mofetil (Cellcept) 750 mg Q12HR ORAL 01/31/19 21:00 02/28/19 00:00 02/06/19 10:02 Naloxone HCl (Narcan) 0.1 mg PRN IV Sedation scale 3 or 4 02/01/19 13:30 03/03/19 13:29 Ondansetron HCl (Zofran ODT) 4 mg Q4H PRN ORAL Nausea & Vomiting 02/04/19 14:45 03/06/19 14:44 02/05/19 22:43 Oxycodone/ Acetaminophen (Percocet 5-325) 1 tab Q4H PRN ORAL For Pain 02/01/19 09:00 02/08/19 08:59 02/06/19 13:10 Pantoprazole (Protonix) 40 mg BEFORE BREAKFAST ORAL 02/06/19 06:30 03/06/19 20:59 02/06/19 06:11 Pantoprazole (Protonix) 40 mg BEFORE DINNER ORAL 02/05/19 16:30 03/07/19 16:29 02/05/19 16:49 Phytonadione (Vitamin K) 10 mg ONCE A WEEK SUBQ 01/22/19 12:00 02/06/19 20:00 02/05/19 11:48 Prochlorperazine (Compazine) 10 mg Q6H PRN IVP Nausea & Vomiting 02/04/19 14:45 03/06/19 14:44 02/06/19 03:28 Prochlorperazine (Compazine) 10 mg Q6H PRN ORAL Nausea & Vomiting 02/04/19 14:45 03/06/19 14:44 02/06/19 03:15 Sodium Chloride 1,000 ml @ 75 mls/hr [id number] IV 02/06/19 10:45 03/08/19 10:44 02/06/19 11:09 Tacrolimus (Prograf) 1 mg DAILY ORAL 02/03/19 09:00 02/25/19 08:59 02/06/19 10:02 Tacrolimus (Prograf) 2 mg BEDTIME ORAL 02/04/19 21:00 02/08/19 20:59 02/05/19 20:07 Trazodone HCl (Desyrel) 25 mg HSPRN PRN ORAL INSOMNIA 02/01/19 08:45 02/23/19 08:44 02/04/19 23:05 Philly Shelby MD Feb 06, 2019 15:44
[2019-02-06 16:00] VITALS: BP 131/71
--- NOTE | 2019-02-06 19:14 | NUR ---
HAND-OFF: Report given to Anna NGUYEN. Patient is stable.
[2019-02-06] MEDS: Fat Emulsion Iv 20% 216 ML in Tpn 1,560 ML IV SCH (20:00)
--- NOTE | 2019-02-06 20:00 | NUR ---
nurse's notes: received patient awake, alert and oriented x 4; admits to a 5/10 abdominal pain but in no apparent distress; denies n/v; noted with special abdominal binder with easy access to the ileostomy; small amount of liquid greenish stool in ileostomy bag; gt clamped; picc line on the dameon; dressing is clean, dry and intact; tpn infusing via picc line at 74cc/hr; with orders to decrease rate to 30 cc/hr x 2 hours then stop infusing and discontinue tpn; also ordered to be discontinued was accuchecks and insulin order. plan of care discussed with patient who verbalized understanding.
[2019-02-06 20:01] VITALS: BP 120/69
[2019-02-06] MEDS: Dyna-Hex 2% Top Sol 2oz TOPIC SCH (20:51)
[2019-02-06] MEDS: TraZODone HCl 25 mg tablet ORAL PRN (21:41)
[2019-02-07] MEDS: TraZODone HCl 25 mg tablet ORAL PRN (00:46)
--- NOTE | 2019-02-07 00:50 | NUR ---
nurse's notes: patient refused vitals at 0000 and 0600 unless patient is awake; pain medication given with good results; noted uop and ileostomy out; recorded; anticipating discharge in am; full report given to rossana for continuation of nursing care.
--- NOTE | 2019-02-07 01:00 | NUR ---
NURSE NOTES: Report taken from PATRICK Castillo.
[2019-02-07] MEDS: Prochlorperazine 10mg tab ORAL PRN (01:11)
[2019-02-07 04:00] VITALS: BP 119/71
[2019-02-07 05:36] LABS: BASOPHILS % (AUTO) 0.8 % (0.0-2.0); EOSINOPHILS % (AUTO) 4.8 % (0.0-3.0); HEMATOCRIT 30.6 % (37.0-47.0); HEMOGLOBIN 10.3 G/DL (12.0-16.0); LYMPHOCYTES % (AUTO) 18.3 % (20.0-45.0); MEAN CORPUSCULAR VOLUME 87 FL (80-99); MONOCYTES % (AUTO) 6.3 % (1.0-10.0); NEUTROPHILS % (AUTO) 69.8 % (45.0-75.0); PLATELET COUNT 432 K/UL (150-450); RED BLOOD COUNT 3.51 M/UL (4.20-5.40); RED CELL DISTRIBUTION WIDTH 14.4 % (11.6-14.8)
[2019-02-07 05:42] LABS: ANION GAP 9 mmol/L (5-15); BLOOD UREA NITROGEN 24 mg/dL (7-18); CALCIUM 10.4 MG/DL (8.5-10.1); CARBON DIOXIDE 23 MMOL/L (21-32); CHLORIDE 101 MMOL/L (98-107); CREATININE 1.2 MG/DL (0.55-1.30); POTASSIUM 4.7 MMOL/L (3.5-5.1); SODIUM 133 MMOL/L (136-145)
[2019-02-07] MEDS: Levothyroxine 125mcg tab ORAL SCH (05:53)
[2019-02-07] MEDS: Lomotil 2.5mg tab ORAL SCH ×2 (06:02→11:26)
--- NOTE | 2019-02-07 07:36 | NUR ---
HAND-OFF: Report given to PATRICK Graves. Patient is awake and in bed. Endorsed to Star that patient would like to shower before she sees wound nurse. Addendum: 02/07/19 at 0738 by Donavan Echevarria RN UO: 1500cc Ileo output: 725cc
[2019-02-07 08:00] VITALS: BP 133/88
--- NOTE | 2019-02-07 08:00 | NUR ---
NURSE NOTES: Received report from Donavan NGUYEN, pt a/a/o x4 laying in bed with no signs of distress or other issues at this time. Yajaira ileostomy bag in place with no leakage noted at this time. PICC line in place intact running IVF @75ml/hr. pt is able to tolerated her diet with no n/v. plan to d/c home today. kim light within reach, bed in lowest position, side rales up x2. I will f/u as needed.
[2019-02-07] MEDS: Metoprolol Succinate XL 50mg tab ORAL SCH (09:24)
--- NOTE | 2019-02-07 09:24 | General Progress Note ---
Progress Note Progress Note AVSS No emesis with gastrostomy plugged. po fluids 1970 Ate 50-75% of meals. Ileostomy 1325 with 4 Lomotil per day Abdomen soft Gastrostomy removed Will d/c PIC line Imp. Doing well Plan discharge To take up to 8 lomotil /24 hours To take MgOxide 400mg po BID Protonix 40mg po q12h HTN meds per Dr. Ziegler - Metoprolol 25mg qd; Zestril 40mg QD, Norvasc 5mg BID Continue Cellcept and Prograf To follow-up in [facility] in the coming week with WOTOMMY stoma care F/U with me in 1 week Full supplies/instructions/limitations provided/discussed Lars Sotomayor MD Feb 07, 2019 09:24
[2019-02-07] MEDS: Lisinopril 20mg tab ORAL SCH (09:25)
[2019-02-07] MEDS: Magnesium Oxide 400mg tab ORAL SCH (09:25)
[2019-02-07] MEDS: Mycophenolate 250mg cap ORAL SCH (09:25)
[2019-02-07] MEDS: oxyCODONE HCL/Acetaminophen 5/325mg ORAL PRN (11:27)
--- NOTE | 2019-02-07 11:34 | Cardiology Progress Note ---
Assessment/Plan Status Narrative 1. Malfunctioning Kock pouch continent ileostomy. 2. History of ulcerative colitis. 3. History of primary sclerosing cholangitis. 4. Status post multiple abdominal operations. 4.1. Appendectomy in 1964. 4.2. Proctocolectomy and Kock pouch in 1978. 4.3. Total abdominal hysterectomy and bilateral salpingo-oophorectomy 1983 4.4. Cholecystectomy in 1985. 4.5. Orthotopic liver transplantation in 1999. 4.6. Revision of Kock pouch and repair of fistula in 2010. HTN- New onset- Controlled on Norvasc /Lisinopril and Metoprolol Tachycardia- probably due to volume depletion Renal insuff- Most probably due volume depletion ( High GT output), - Creat 1.3 Volume depletion- high GT output- Esophagitis Duodenal narrowing improving Vomiting -? GI hypomobility HTN better controlled Assessment/Plan Metoprolol 50 mg QD Zestril 40 mg QD. Norvasc 5 mg BID Monitor BP at home. May need to reduce BP meds as she improves. Hold Norvasc for SBP<[address] Sotomayor Increase activity DC home today Rx given for BP meds Plan reviewed with Patient, her and he Aunt. Discussed with RN. F/U at [place]. Subjective Cardiovascular: Reports: no symptoms Respiratory: Reports: no symptoms Gastrointestinal/Abdominal: Reports: no symptoms; Denies: vomiting Genitourinary: Reports: no symptoms Subjective Still NPO vomiting x1 today Having out put from ileostomy Has been out of bed, ambulated. Pain controlled Creat 1.3 High output from GT- now being plugged Q2h S/P EGD today- showed gastriris/esophagitis with mid duodenal narrowing 01/21/19- had Gatrografin UGI study, increased ileostomy output. No vomiting today. 01/22/10- has tolerated clear liquids, had vomiting x1 this morning. 01/23- Started on solid food 01/24- Vomited after breakfast, and lunch- TPN @74 cc/h, IV @ 70 cc/h 01/26- No vomiting today, tolerated solids, still on TPN 01/29 Small amount of vomiting earlier, has tolerated her lunch 01/30- Had CT done- showing persistent duodenal narrowing, Has had vmiting, high GT utput. IOs negative, Creat 1.3, HR 117 02/01- NPO, no Vomiting, scheduled for EGD in AM 02/02- s/p EGD today- duodenal narrowing improving, started on diet, 02/03- tolerating solids, had vomiting x2, on Lolomtil, ambulating, still on TPN , IV fluids. Creat 1.3 02/04- ambulating, no vomiting still on TPN and IV fluids . Creat 1.3 02/06- Had vomiting x 2 , tolerating PO food. Creat 1.2 02/07- GT removed, doing well , no N/V Objective Last 24 Hour Vital Signs Date Time Temp Pulse Resp B/P (MAP) Pulse Ox O2 Delivery O2 Flow Rate FiO2 02/07/19 09:25 102 133/88 02/07/19 09:25 133/88 02/07/19 09:24 102 133/88 02/07/19 04:00 98.7 92 18 119/71 (87) 97 02/06/19 21:00 Room Air 02/06/19 20:01 98.4 91 17 120/69 (86) 97 02/06/19 17:22 93 131/78 02/06/19 16:00 98.1 93 18 131/71 (91) 97 02/06/19 12:00 98.4 97 18 126/78 (94) 96 Cardiovascular: regular rhythm, no gallop/murmur Respiratory/Chest: lungs clear Abdomen: normal bowel sounds, non tender, no organomegaly, no mass Extremities: non-tender, no calf tenderness, no swelling Intake and Output 02/06/19 02/07/19 19:00 07:00 Intake Total 2808 ml 1235 ml Output Total 2050 ml 1375 ml Balance 758 ml -140 ml Intake Oral 1320 ml 650 ml IV Total 1488 ml 585 ml Output Urine Total 1450 ml 650 ml Gastric Drainage Total 0 ml 0 ml Emesis 0 ml 0 ml Other 600 ml 725 ml Laboratory Tests Test 02/07/19 04:55 White Blood Count 7.0 K/UL (4.8-10.8) Red Blood Count 3.51 M/UL (4.20-5.40) L Hemoglobin 10.3 G/DL (12.0-16.0) L Hematocrit 30.6 % (37.0-47.0) L Mean Corpuscular Volume 87 FL (80-99) Mean Corpuscular Hemoglobin 29.5 PG (27.0-31.0) Mean Corpuscular Hemoglobin Concent 33.8 G/DL (32.0-36.0) Red Cell Distribution Width 14.4 % (11.6-14.8) Platelet Count 432 K/UL (150-450) Mean Platelet Volume 5.7 FL (6.5-10.1) L Neutrophils (%) (Auto) 69.8 % (45.0-75.0) Lymphocytes (%) (Auto) 18.3 % (20.0-45.0) L Monocytes (%) (Auto) 6.3 % (1.0-10.0) Eosinophils (%) (Auto) 4.8 % (0.0-3.0) H Basophils (%) (Auto) 0.8 % (0.0-2.0) Sodium Level 133 MMOL/L (136-145) L Potassium Level 4.7 MMOL/L (3.5-5.1) Chloride Level 101 MMOL/L (98-107) Carbon Dioxide Level 23 MMOL/L (21-32) Anion Gap 9 mmol/L (5-15) Blood Urea Nitrogen 24 mg/dL (7-18) H Creatinine 1.2 MG/DL (0.55-1.30) Estimat Glomerular Filtration Rate 44.8 mL/min (>60) Glucose Level 126 MG/DL (74-106) H Calcium Level 10.4 MG/DL (8.5-10.1) H Magnesium Level 1.9 MG/DL (1.8-2.4) Micha Ziegler MD Feb 07, 2019 11:34
[2019-02-07] MEDS ORDERED: METOPROLOL SUCC50 MG ORAL (11:44)
[2019-02-07] MEDS ORDERED: NORVASC5 MG ORAL (11:46)
[2019-02-07] MEDS ORDERED: LISINOPRIL40 MG ORAL (11:46)
[2019-02-07 12:00] VITALS: BP 141/74
[2019-02-07] MEDS ORDERED: NS Irrig 1000ml ONE (12:04)
--- NOTE | 2019-02-07 13:00 | NUR ---
NURSE NOTES: Received order to d/c pt home today. discharge instructions and belonging given to patient and pt's family. PICC removed prior to d/c. PICC line intact at 31cm as noted in previous xray. post PICC line removed: 141/74 HR: 93, spo2: 98% RA no signs of distress noted. [facility] Y[facility] and given extras supplies for up to two weeks. prescription given to patient since yesterday for hypertension medications. she stated that her already fill up prescription. pt left the floor via w/c with no signs of distress or other issues notes. pt's will provide transportation. I will f/u as needed.
--- NOTE | 2019-02-09 09:44 | Discharge Summary ---
Discharge Summary Hospital Course Date of Admission Dec 17, 2018 at 09:39 Date of Discharge Feb 07, 2019 at 12:05 Admitting Diagnosis Malfunctioning Kock Pouch Reason for Hospitalization: elective surgery HPI Wen Costello is a 68 year old female who was admitted on Dec 17, 2018 at 09: 39 for Malfunctioning Kock Pouch. Patient was admitted for repair of malfunctioning Kock pouch. Consultations Dr Ziegler - truck hop Dr Germain -multimedia teacher Dr Shelby -ID specialist Dr Dozier -GI specialist Procedures s/p 12/[address] Светлана Mercado pouch continent ileostomy pouch endoscopy. s/p 12/18/[address] Sotomayor Resection of failed Kock pouch and enteroenterostomy and creation of Yajaira ileostomy s/p 01/04/[address] Sotomayor Exploratory laparotomy with segmental small bowel resections and relocation of ileostomy to right lower quadrant s/p 01/[address] Sotomayor Laparotomy with repair of staple line dehiscence and wound VAC closure of abdomen s/p 01/09/[address] Sotomayor s/p removal of wound VAC, repair of intestinal leak of ileostomy segment, and abdominal wall closure with placement of drain s/p 01/20/[address] Dozier s/p 02/02/[address] Dozier Hospital Course 68 years old female with past medical history of ulcerative colitis, primary sclerosing cholangitis, requiring liver transplant in 1999, status post multiply abdominal surgeries, admitted with malfunctioning Kock pouch continent ileostomy . Patient had increased difficulty with intubation and increased incontinence of stool and gas. Patient admitted for repair of malfunctioning Kock. pouch. Patient initially undergone on 12/17 Kock pouch continent ileostomy pouch endoscopy , which revealed partially slipped or resorbed nipple valve, likely accounting for her incontinence and some difficulty intubating. PICC line was placed by interventional radiology. Patient was kept n.p.o. after midnight for surgery. Patient subsequently undergone on 12/18 surgery : Resection of failed Kock pouch and enteroenterostomy and creation of Yajaira ileostomy. Pain management initially was addressed with the AIR BOX TESTER Dilaudid. Intake and output were closely monitored. Patient was kept n.p.o. Prograf and CellCept were managed as per GI specialist with checking Prograf levels and further titrating dose based on levels. Mobility protocol initiated. Patient was on empiric antibiotics due to leukocytosis. Antiemetic provided as needed. Patient had ileus, was kept NPO and started on TPN. Electrolytes were replaced as needed . Pickett catheter was intially continued due to pelvic dissection. Subsequently AIR BOX TESTER Dilaudid and Pickett catheter were discontinued. WCON consult requested for new ileostomy. Demurrage Man consulted regarding persistent hypertension ( no response to Captopril) , who optimized antihypertensive regimen and followed patient closely. Echocardiogram revealed preserved ejection fraction. Enterostomy nurse was working with the patient with various appliances due to the fact that stoma had difficulty maintaining appliance seal. CT scan of the abdomen and pelvis 12/26 revealed no obstruction going into ileostomy appliance , but one segment of bowel was quite dilated, likely partial small bowel obstruction with one dilated loop. Patient was continued with NPO status and TPN. Patient developed fever of unclear origin. ID specialist consulted. Patient started on empiric antibiotic as per ID specialist recommendation. Urinalysis and urine culture were negative. Blood culture from PICC line were negative. Patient started on clear liquid as tolerated. Fever and leukocytosis of unclear etiology were presumed to be possibly due to intra-abdominal fluid collection versus leak related. Patient was continued on antibiotics, TPN clear liquid diet. Ileostomy care provided. Patient was able to tolerate clear liquid diet. Laboratory work-up revealed anemia , and patient received Venofer 100 mg IV daily for 5 days. Abdomen remains distended . Ileostomy appliance still with difficulty maintaining seal Patient undergone an additional CT of the abdomen and pelvis with oral contrast 12/30 , which revealed no evidence of perforation or abscess , but showed dilated enteroenterostomy segment without obstruction, possible intra- abdominal collection. ID specialist closely followed. Abdominal infection was resolving with the Zosyn. Antiemetic provided as needed. Patient was slowly advanced to low residue diet and was able to eat small amounts, but was getting early satiety. Abdomen remains distended , TPN continued. Electrolyte replaced as needed and laboratory results were followed. ID specialist closely follow. Abdominal infection was resolving with Zosyn. On 01/03 patient had an episode of increased abdominal pain and recurrent emesis . Patient was made n.p.o. Patient continued to have leaking ileostomy appliance. Patient subsequently undergone on 01/04 expiratory laparotomy with segmental small bowel resection and relocation of ileostomy to right lower quadrant. Noted 01/04 creatinine 1.4. Renal ultrasound was unremarkable. Renal parameters and electrolytes were closely monitored. Creatinine trended down and remained stable throughout the patient's stay in the hospital. SCD provided for DVT prophylaxis. TPN continued . Gastrostomy was maintained to drainage. Patient had abdominal binder to wear at all times with a hole over her ileostomy stoma. Noted leaking enteric fluid through lower pole of incision, likely intestinal leak. Patient was transfused with 1 unit of packed red blood cells . Patient undergone on 01/07 laparotomy with repair of staple line dehiscence and wound VAC closure of the abdomen. After surgery patient was left intubated with plans to take her back to the operating room in 2 days. Patient was transferred to ICU after surgery. Ventilator support provided . De Alcoholizer closely followed. Fentanyl infusion maintained. Patient subsequently undergone on removal of wound VAC , repair of intestinal leak of ileostomy segment and abdominal wall closure with a placement of drain . Patient subsequently was extubated. Pain was managed with low-dose of Toradol and fentanyl. Intake and output were closely monitored, and labs were followed. . Patient status post multiply operations in one week with repair of intestinal perforation times 2. Patient was on TPN. HAROLDO drain and Pickett catheter continued. Mobility protocol initiated with abdominal binder on at all times. Patient remained n.p.o. except medication via gastrostomy . Gastrostomy maintained to continuous drainage. Pain was slowly improving, and pain medications down titrated . Patient was transferred to Medical Surgical floor. Antiemetic provided as needed, abdomen was healing nicely. Patient had persistent issues with the high-volume gastrostomy output. Patient remained NPO, on TPN and IV fluids. Patient was able to ambulate in the hallways. Pain improved , no need for pain breakthrough medication . Patient continued to show occasional emesis and high volume gastrostomy output. HAROLDO showed serous drainage. Gastrostomy catheter balloon was partially deflated. Patient developed leukocytosis. Blood and urine culture revealed Sun parapsilosis . Prior blood culture on 12/27, 01/03, 01/06 01/07 were all negative. Antibiotic regimen was optimized as per ID specialist recommendation. Antibiotic and antifungal provided as per ID specialist recommendation . Patient was on cefepime, Flagyl, vancomycin and micafungin. Patient remained afebrile. Peripheral IV line started , and left arm PICC line discontinued. CT scan of abdomen and pelvis 01/18 revealed some intra-abdominal small fluid collection , not obvious abscess, consistent with the postoperative changes. No evidence for SMA syndrome. Trial of intermittent plugging of gastrostomy tube for 2 hours intervals initiated. Patient still continued to have persistent high volume ostomy output. Patient undergone EGD on 01/20 , which revealed gastritis. Biopsy of stomach antrum revealed mild chronic gastritis. Patient started on gastrostomy 3: 1 protocol. HAROLDO drain removed. Gastrografin upper GI series revealed narrowing of the first portion of duodenum with contrast passing through in a delayed fashion. Likely due to extensive edema of bowel wall and bladimir-duodenal issues from the operation. Patient started on clear liquid diet. Gastrostomy was maintained to suction. Surveillance blood cultures were negative. Patient remained afebrile. New PICC line was placed by interventional radiology . Antibiotics continued to complete the course as per ID specialist recommendation. Diet was slowly advanced to regular as tolerated. Some reggie were removed. G-tube was plugged, and patient was able to tolerate gastrostomy plugging with no nausea but occasional intermittent emesis. Pickett catheter was discontinued .Patient was able to void without any difficulties. There was difficulty maintaining a seal with ileostomy appliance due to increase of skin medial aspect. Partial duodenal obstruction was slowly improving. Patient had a shortened bowel syndrome with a high ileostomy output compared to oral intake. IV fluids discontinued , TPN continued. Pain significantly improved. Fentanyl patch discontinued ( prior was tapered down to the lowest dose) , and Percocet provided as needed. High-protein liquid supplements started. Patient had persistent partial duodenal obstruction with high volume emesis. Suction resumed to gastrostomy culture. KUB revealed no acute findings. TPN and gastrostomy tube suction continued. Follow-up CT scan 01/30 showed persistent mild narrowing of the third portion of duodenum , partial duodenal obstruction. Patient was advanced to full liquid as tolerated. TPN and gastrostomy tube suction continued. Remaining reggie removed. Patient undergone EGD with plan for possible dilatation /stent placement on 02/02. EGD showed improvement in duodenal narrowing . No dilatation or stent were necessarily . EGD revealed diffuse esophagitis . Biopsy demonstrated evidence of mild to moderate gastritis, no H. pylori , no metaplasia, dysplasia, or malignancy. Partial duodenal obstruction was resolving. TPN and IV fluids continued. Gastrostomy was changed to gravity drainage instead of suction. Patient started on BCIR low residue diet. Protonix and Carafate initiated. Patient started on Lomotil before each meal. Patient was able to tolerate small amount of low residue diet with few episodes of emesis. Ileostomy appliance remained intact, but peristomal skin showed signs of excoriation. Patient will need appliance with convexity. Partial duodenal obstruction was resolving. Patient started on B12 1 mg IM and folic acid 1 mg daily. Patient was able to tolerate gastrostomy with continuous plugging. Lomotil increased to 4 times a day. Stool for C. difficile was negative x2. Patient completed 2 weeks of Diflucan after negative blood culture on . High volume ileostomy output was due to short-term bowel syndrome. Patient started on Gatorade/water 500 cc 3 times daily. IV fluids discontinued TPN still continued last ileostomy appliance remains intact TPN tapered and discontinued no emesis with gastrostomy plugged continuously patient was able to tolerate 50 to 75% of the meals gastrostomy was removed PICC line disconnected patient was stable for discharge antihypertensive medications provided as per truck hop and included metoprolol 25 mg daily, Zestril 40 mg daily and Norvasc 5 mg twice daily CellCept and Prograf to be continued follow-up with Dr[facility] in the coming week with [facility] stoma care follow up with surgeon in 1 week full supplies/instructions/limitations provided/discussed FINAL DIAGNOSES 1. Malfunctioning Kock pouch continent ileostomy with increasing difficulty with intubation and increasing incontinence of stool and gas. 2. History of ulcerative colitis. 3. History of primary sclerosing cholangitis. 4. STATUS POST MULTIPLE ABDOMINAL OPERATIONS: 4.1. Proctocolectomy and Kock pouch continent ileostomy in 1978. 4.2. Total abdominal hysterectomy and bilateral salpingo-oophorectomy in 1983. 4.3. Appendectomy age 15. 4.4. Cholecystectomy in 1985. 4.5. Orthotopic liver transplantation in 1999. 4.6. Laparotomy with revision of Kock pouch and repair of pouch cutaneous fistula in 2010. 5. s/p Kock pouch continent ileostomy pouch endoscopy 12/17/18 6. s/p Resection of failed Kock pouch and enteroenterostomy and creation of Yajaira ileostomy 12/18/18 7. Early postoperative small bowel obstruction and intra-abdominal infection and retracted Yajaira ileostomy, left lower quadrant 8. Ileus 9. s/p Exploratory laparotomy with segmental small bowel resection and relocation of ileostomy to right lower quadrant 01/04/19 10. s/p Laparotomy with repair of staple line dehiscence and wound VAC closure of abdomen 01/07/19 11. s/p removal of wound VAC, repair of intestinal leak of ileostomy segment, and abdominal wall closure with placement of drain 01/09/19 12. Persistent partial duodenal obstruction -improved 13. s/p EGD x2: 01/20/19 and 02/02/19 14. 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 Postoperative respiratory failure-resolved 16. Anemia 17. Severe protein calorie malnutrition 18. Electrolytes abnormalities 19. Probable sepsis, possibly due to intra-abdominal infection /early small bowel obstruction 20. Fungemia 21. Fungal UTI 22. Intra-abdominal fluid collection 23. Malfunctioning ileostomy with difficulty keeping appliance in place Discharge Medications Continued Medications: Amlodipine Besylate (Norvasc) 5 Mg Tablet 5 MG ORAL BID for hypertension , #60 TAB (This prescription has been renewed) Levothyroxine Sodium* (Synthroid*) 125 Mcg Tablet 125 MCG ORAL DAILY, TAB (This prescription has been renewed) Take in the morning on an empty stomach, at least 30 minutes before food. Lisinopril* (Lisinopril*) 40 Mg Tablet 40 MG ORAL DAILY, #60 TAB (This prescription has been renewed) Metoprolol Succinate* (Metoprolol Succinate*) 50 Mg Tab.er.24h 50 MG ORAL DAILY, #30 TAB (This prescription has been renewed) Mycophenolate Mofetil (Cellcept) 250 Mg Capsule 750 MG ORAL BID, CAP (This prescription has been renewed) Tacrolimus (Prograf) 1 Mg Capsule 1 MG ORAL DAILY, CAP 0 Refills (This prescription has been renewed) Tacrolimus (Prograf) 1 Mg Capsule 2 MG ORAL DAILY, CAP 0 Refills (This prescription has been renewed) Trazodone Hcl* (Desyrel*) 50 Mg Tablet 50 MG ORAL BEDTIME PRN for Insomnia, TAB (This prescription has been renewed) Discharge Condition Upon Discharge: stable Discharge Disposition Patient was discharged home Discharge Instructions Discharge Instructions Special Instructions I have been assigned to complete a D/C Summary on this account. I was not involved in the patient management Obdulia Alas NP Feb 09, 2019 09:44
== END 2019-02-07 12:05 | disposition home or self-care (01) | DRG 329 ==
LOC: SDSOVERFLO 09:39 → 3E 09:47 → ICU 01-04 13:45 → 3E 01-12 12:30
PROC: B518ZZA Fluoroscopy of Superior Vena Cava, Guidance (ICD-10-PCS; principal; 2018-12-17 13:12)
PROC: 0DJD8ZZ Inspection of Lower Intestinal Tract, Via Natural or Artificial Opening Endoscopic (ICD-10-PCS; principal; 2018-12-17 13:12)
PROC: 02HV33Z Insertion of Infusion Device into Superior Vena Cava, Percutaneous Approach (ICD-10-PCS; principal; 2018-12-17 13:12)
PROC: 0DQ80ZZ Repair Small Intestine, Open Approach (ICD-10-PCS; 2018-12-18)
PROC: 0DB80ZZ Excision of Small Intestine, Open Approach (ICD-10-PCS; 2018-12-18)
PROC: 0DSB0ZZ Reposition Ileum, Open Approach (ICD-10-PCS; 2018-12-18)
PROC: 0DB80ZZ Excision of Small Intestine, Open Approach (ICD-10-PCS; 2019-01-04)
PROC: 0DSB0ZZ Reposition Ileum, Open Approach (ICD-10-PCS; 2019-01-04)
PROC: 0TQB0ZZ Repair Bladder, Open Approach (ICD-10-PCS; 2019-01-04)
PROC: 0DQ80ZZ Repair Small Intestine, Open Approach (ICD-10-PCS; 2019-01-07)
PROC: 5A1945Z Respiratory Ventilation, 24-96 Consecutive Hours (ICD-10-PCS; 2019-01-07)
PROC: 0WQF0ZZ Repair Abdominal Wall, Open Approach (ICD-10-PCS; 2019-01-07)
PROC: 0DQ80ZZ Repair Small Intestine, Open Approach (ICD-10-PCS; 2019-01-09)
PROC: 0WQF0ZZ Repair Abdominal Wall, Open Approach (ICD-10-PCS; 2019-01-09)
PROC: 0DD78ZX Extraction of Stomach, Pylorus, Via Natural or Artificial Opening Endoscopic, Diagnostic (ICD-10-PCS; 2019-01-20)
PROC: 02HV33Z Insertion of Infusion Device into Superior Vena Cava, Percutaneous Approach (ICD-10-PCS; 2019-01-22)
PROC: B518ZZA Fluoroscopy of Superior Vena Cava, Guidance (ICD-10-PCS; 2019-01-22)
PROC: 0DD78ZX Extraction of Stomach, Pylorus, Via Natural or Artificial Opening Endoscopic, Diagnostic (ICD-10-PCS; 2019-02-02)
DX: K91.858 Other complications of intestinal pouch (principal); A41.9 Sepsis, unspecified organism; J96.90 Respiratory failure, unspecified, unspecified whether with hypoxia or hypercapnia; E43 Unspecified severe protein-calorie malnutrition; K63.1 Perforation of intestine (nontraumatic); Z94.4 Liver transplant status; K51.90 Ulcerative colitis, unspecified, without complications; K83.09 Other cholangitis; T81.32XA Disruption of internal operation (surgical) wound, not elsewhere classified, initial encounter; B37.49 Other urogenital candidiasis; L03.113 Cellulitis of right upper limb; K56.690 Other partial intestinal obstruction; K91.2 Postsurgical malabsorption, not elsewhere classified; K56.7 Ileus, unspecified; B37.89 Other sites of candidiasis; K91.71 Accidental puncture and laceration of a digestive system organ or structure during a digestive system procedure; I10 Essential (primary) hypertension; R00.0 Tachycardia, unspecified; E86.0 Dehydration; R73.9 Hyperglycemia, unspecified; D64.9 Anemia, unspecified; K20.9 Esophagitis, unspecified; N28.9 Disorder of kidney and ureter, unspecified; E03.9 Hypothyroidism, unspecified; G89.18 Other acute postprocedural pain; R31.9 Hematuria, unspecified; K29.70 Gastritis, unspecified, without bleeding; K57.10 Diverticulosis of small intestine without perforation or abscess without bleeding; K94.23 Gastrostomy malfunction; K66.0 Peritoneal adhesions (postprocedural) (postinfection); K91.89 Other postprocedural complications and disorders of digestive system; Z68.23 Body mass index [BMI] 23.0-23.9, adult
CPT/HCPCS: 36415; 36569; 36600; 71045; 74018; 74176; 74177; 74247; 76770; 76937; 80048; 80053; 80197; 80202; 81001; 81003; 82150; 82607; 82728; 82746; 82803; 82962; 83540; 83550; 83690; 83735; 83930; 83935; 84100; 84134; 84439; 84443; 85007; 85025; 85610; 85651; 85730; 86140; 86850; 86900; 86901; 86920; 87040; 87070; 87086; 87205; 87324; 93005; 93306; 94002; 94003; 94150; 94664; J1815; J2250; J2405; J2710; J7030